=== PATIENT | female | born 2000 | race Caucasian/White ===

== ENCOUNTER 2022-12-03 21:51 | Emergency (ER) | payer MEDICAID, SELFPAY ==
[2022-12-03 21:52] VITALS: BP 149/98; PULSE 97; RESP 18; TEMP 36.9; O2SAT 97; BMI 40.8
--- NOTE | 2022-12-03 22:24 | US_ITS ---
STUDY: ABDOMINAL ULTRASOUND - RIGHT UPPER QUADRANT REASON FOR VISIT: Female, 22 years old RUQ pain TECHNIQUE: Ultrasound evaluation of the right upper quadrant was performed with real-time and static james-scale imaging. TECHNICAL QUALITY: Limited. Examination limited by bowel gas. COMPARISON: None. FINDINGS: Liver: The liver measures 17.0 cm. There is increased echogenicity consistent with fatty infiltration. The bile ducts are within normal limits. There is hepatic color flow. The direction of portal flow is hepatopetal. There is no demonstrated mass lesion. Gallbladder: Normal distended gallbladder. The gallbladder wall measures 2.0 mm. There is a positive sonographic Mendoza''s sign. There is no pericholecystic fluid. There are multiple echogenic structures within the gallbladder, consistent with multiple gallstones. Common Bile Duct (C.B.D.): The common bile duct measures 4.0 mm. Pancreas: Normal size of the body with partial obscuration of the head and tail of the pancreas. There is normal echogenicity of the visualized pancreas. There is no demonstrated pancreatic mass or cyst in the visualized portion. Right Kidney: Normal size of the right kidney. The right kidney measures 12.4 x 5.3 x 4.3 cm. Normal renal cortex. The right cortex measures 1.4 cm. There is no demonstrated renal mass or cyst. There is no right hydronephrosis. US/Gallbladder IMPRESSION: Possible mild diffuse fatty liver. Multiple gallstones with positive Mendoza sign, nonspecific in the absence of additional signs of acute cholecystitis. Remainder of the right upper quadrant ultrasound unremarkable. Electronically Signed: Fabiola Kaplan MD at 23:44 EDT ,
[2022-12-03] MEDS: Ondansetron 4 MG/2 ML Vial IV (22:37)
[2022-12-03] MEDS: 0.9% Normal Saline (1000mL) 1,000 ML 999 ML IV (22:37)
--- NOTE | 2022-12-03 22:45 | RAD_ITS ---
STUDY: X-RAY CHEST REASON FOR EXAM: Female, 22 years old. cough TECHNIQUE: PA and lateral views of the chest. COMPARISON: None. FINDINGS: The lungs are clear and expanded. There is no demonstrated pleural abnormality. Normal size heart. Normal mediastinum and tran. Normal visualized pulmonary arteries. Normal visualized aortic arch and descending thoracic aorta. Normal visualized thoracic spine. Normal visualized ribs, clavicles, and shoulders. There is no demonstrated abnormality of the visualized soft tissue structures of the upper abdomen. RAD/Chest PA and Lateral IMPRESSION: Normal x-ray examination of the chest. Electronically Signed: Fabiola Kaplan MD at 23:17 EDT ,
[2022-12-03 22:55] LABS: Bacteria 0 SEEN /hpf (None Seen); Mucous, Urine 0 SEEN /hpf (<or=2+); Red Blood Cells-Urine 0 SEEN /hpf (0-5)
[2022-12-03 22:57] LABS: Color, Urine Yellow (Yellow); Glucose, Dipstick 1000 mg/dl (Normal); Ketone-Dipstick 5 mg/dl (Negative); Leukocyte Esterase-Dipstick 25 /ul (Negative); Nitrite-Dipstick Negative (Negative); Occult Blood-Urine Negative /ul (Negative); Protein-Dipstick Negative (Negative); Specific Gravity, Urine 1.015 (1.002-1.030); Urine Bilirubin Dipstick Negative (Negative); Urine Clarity Clear (Clear); Urine Urobilinogen Normal (Normal)
[2022-12-03 22:59] LABS: Absolute Lymphocyte Count 4.38 X10^3/uL (0.83-4.51); Absolute Neutrophil Count 3.8 X10^3/uL (2.0-7.7); Basophil# 0.05 X10^3/uL; Basophil% 0.6 % (0-1); Eosinophil# 0.25 X10^3/uL; Eosinophils% 2.8 % (0-5); Hematocrit 42.6 % (37-47); Hemoglobin 13.5 g/dL (12.0-15.0); Lymphocyte # 4.38 X10^3/ul (0.83-4.51); Lymphocyte % 48.6 % (19-41); Mean Corp Hgb Conc 31.7 g/dL (32-36); Mean Corpuscular Hgb 25.6 pg (27.0-32.0); Mean Corpuscular Volume 80.8 fL (81-99); Mean Platelet Vol. 10.6 fl (6.2-12.0); Monocyte% 5.5 % (0-10); NRBC Flagged by Analyzer 0 % (0-5); Neutrophil # 3.82 X10^3/uL (2.7-7.7); Neutrophil % 42.3 % (47-70); Platelet Count 258 K/mm3 (150-450); RBC Distribution Width CV 14.5 % (11.6-14.6); RBC Distribution Width SD 41.9 fl (35.1-43.9); Red Blood Count 5.27 M/mm3 (4.2-5.4)
--- NOTE | 2022-12-03 23:04 | EX.ED.DYSGE1 ---
HPI History of Present Illness Chief Complaint: General Illness Informant: patient Narrative Narrative: Patient is a 22-year-old female with past medical history of diabetes. She states for the past 1 to 2 days she has had congestion drainage and cough. She denies any known sick contacts or fevers or chills. She also notes that she has had pain in her right upper abdomen and has had bouts of vomiting that occurred 10 to 15 minutes after eating. She went to an urgent care secondary to the symptoms and there was concern this could be gallbladder related and therefore patient was sent to the ER for evaluation. [facility] Medical History Asthma CPAP (continuous positive airway pressure) dependence Diabetes GERD (gastroesophageal reflux disease) Sleep apnea Home Medications albuterol sulfate 90 mcg/actuation aerosol inhaler 2 puff inhalation Q6H PRN wheezing 12/03/22 [History Last Taken Unknown] cephalexin 500 mg capsule mg 12/03/22 [History Last Taken Unknown] dulaglutide 3 mg/0.5 mL subcutaneous pen injector (Trulicity) 3 mg subcut .weekly 12/03/22 [History Last Taken Unknown] empagliflozin 10 mg tablet (Jardiance) 10 mg PO DAILY 12/03/22 [History Last Taken Unknown] glycopyrrolate 2 mg tablet 2 mg PO DAILY 12/03/22 [History Last Taken Unknown] benzonatate 200 mg capsule 200 mg PO TID PRN cough #30 caps 12/04/22 [Rx Last Taken Unknown] hydrocodone-acetaminophen 5-325mg 5mg-325mg 1 tab PO Q6H PRN PRN Pain 3 days #12 TABLETS 12/04/22 [Rx Last Taken Unknown] metoclopramide HCl 10 mg tablet (Reglan) 10 mg PO 4X/DAY PRN PRN nausea and vomiting #40 tabs 12/04/22 [Rx Last Taken Unknown] Allergy/AdvReac Type Severity Reaction Status Date / Time cetirizine [From [facility]] Allergy Severe Angioedema Verified 12/03/22 21:55 CONTROLL Allergy Intermediate Swelling Uncoded 12/03/22 21:55 Social History Smoking Status: Never smoker ROS ROS ED Constitutional Constitutional ED: Denies chills or fever(s) Eyes Eyes: Denies change in vision ENT ENT ED: Reports rhinorrhea and sore throat Cardiovascular Cardiovascular: Denies chest pain Respiratory/Chest Respiratory/Chest: Reports cough; Denies dyspnea Gastrointestinal Gastrointestinal: Reports abdominal pain, nausea and vomiting; Denies diarrhea Genitourinary Genitourinary ED: Denies dysuria or hematuria Musculoskeletal Musculoskeletal: Denies myalgias Integumentary Denies rash Neurologic Neurologic: Denies headache(s) Hematologic/Lymphatic Hematologic/Lymphatic: Denies easy bleeding or easy bruising EXAM Physical Exam Const Vital Signs: 12/03/22 21:52 12/03/22 22:09 Temperature 98.4 F Temperature Source Temporal Pulse Rate 97 Respiratory Rate 18 Respiratory Effort Normal Respiratory Pattern Normal Blood Pressure 149/98 H Blood Pressure Mean 115 Pulse Ox 97 Oxygen Delivery Method Room Air Positive well nourished, well developed and obese General Appearance ED: well developed Nutritional Appearance: obese HEENT HEENT Narrative: Bilateral TMs are retracted but show no secondary changes to suggest infection Nasal mucosa is hyperemic and boggy with enlarged inferior nasal turbinates There is cobblestoning the posterior pharynx consistent with sinus drainage without airway edema or compromise or secondary changes to suggest infection. Eyes PERRL and EOMs intact bilaterally General Eye ED: Negative for scleral icterus Neck supple Neck Narrative: No nuchal rigidity or meningeal signs noted Resp normal respiratory effort and clear to auscultation bilaterally Cardio regular rate and regular rhythm Rate: other Other Details: Radial and carotid pulses are equal and symmetric GI non-distended GI Narrative: Abdomen is obese soft and nondistended with normal active bowel sounds. There is pain with palpation in the mid epigastric and right upper quadrant region without voluntary guarding or rigidity. Negative Mendoza sign. No voluntary guarding or rigidity. No pulsatile mass. No obvious hernia palpated. Auscultation: normoactive bowel sounds Palpation: soft Extremity normal to inspection Extremity Narrative: No asymmetric edema no pitting edema negative Homans' sign bilaterally Neuro oriented x3 and CN's II-XII intact bilaterally Sensorium / Orientation: alert Psych mental status grossly normal Skin no rashes or lesions noted General Skin Exam: Negative for jaundice MDM MDM MDM Narrative Medical decision making narrative: Patient presented to the ER hypertensive but otherwise with stable vitals. She reported congestion drainage and cough and differential diagnosis for this is viral upper respiratory tract infection versus pneumonia. However she also reported she has an right upper quadrant abdominal pain and bouts of vomiting. This could be related to a viral URI but also pancreatitis or biliary colic is a possibility and therefore basic labs with a chest x-ray and a right upper quadrant ultrasound were obtained. Patient's chest x-ray revealed no obvious infiltrate. Labs show no leukocytosis or left shift her liver enzymes and lipase are normal. There are no laboratory studies to suggest DKA. Ultrasound did confirm cholelithiasis without signs of acute cholecystitis. On reevaluation the patient is resting comfortably and vitals remained stable. Therefore patient given symptomatic care for the viral upper respiratory tract infection and as she is not showing signs of acute cholecystitis I do not feel there is need for emergent general surgery consultation. Patient will be given their name for follow-up and be instructed on symptomatic care for both gallbladder dysfunction and URI. However at this time based on the fact that the pain has improved she has had no bouts of vomiting in the ER and vitals are stable and laboratory studies reveal no clinically significant findings she is safe for discharge. History & Record Review Discussion w/independent historian: Patient Lab Data Attestation: I reviewed the patient's lab results. Labs: Laboratory Results - last 24 hr 12/03/22 12/03/22 22:35 22:45 WBC 9.0 RBC 5.27 Hgb 13.5 Hct 42.6 MCV 80.8 L MCH 25.6 L MCHC 31.7 L RDW Std Deviation 41.9 RDW Coeff of Elmo 14.5 Plt Count 258 MPV 10.6 Immature Gran % (Auto) 0.200 Neut % (Auto) 42.3 L Lymph % (Auto) 48.6 H [place] % (Auto) 5.5 Eos % (Auto) 2.8 Baso % (Auto) 0.6 Absolute Neuts (auto) 3.8 Absolute Lymphs (auto) 4.38 Nucleated RBC % 0 Sodium 138 Potassium 3.4 L Chloride 108 H Carbon Dioxide 26.0 Anion Gap 4 L BUN 17 Creatinine 1.05 H Estim Creat Clear Calc 78.01 Est GFR (MDRD) Af Amer 83 Est GFR (MDRD) Non-Af 69 BUN/Creatinine Ratio 16.2 Glucose 95 Calcium 8.9 Total Bilirubin 0.60 Direct Bilirubin 0.16 AST 16 ALT 32 Alkaline Phosphatase 75 Total Protein 7.8 Albumin 3.9 Globulin 3.9 Lipase 28 Urine Color Yellow Urine Clarity Clear Urine pH 5.0 Ur Specific [place] 1.015 Urine Protein Negative Urine Glucose (UA) 1000 H Urine Ketones 5 H Urine Occult Blood Negative Urine Nitrite Negative Urine Bilirubin Negative Urine Urobilinogen Normal Ur Leukocyte Esterase 25 H Urine RBC 0 SEEN Urine WBC 0-5 SEEN Ur Squamous Epith Cells 5-10 SEEN Urine Bacteria 0 SEEN Urine Mucus 0 SEEN Urine Test Negative Radiography Diagnostic Testing: Clinical Impression(s) from Imaging Studies Gallbladder Ultrasound 12/03/22 22:24 IMPRESSION: Possible mild diffuse fatty liver. Multiple gallstones with positive Mendoza sign, nonspecific in the absence of additional signs of acute cholecystitis. Remainder of the right upper quadrant ultrasound unremarkable. Electronically Signed: Fabiola Kaplan MD at 23:44 EDT , Chest X-Ray 12/03/22 22:45 IMPRESSION: Normal x-ray examination of the chest. Electronically Signed: Fabiola Kaplan MD at 23:17 EDT , 2 view chest x-ray is interpreted by the emergency medicine physician reveals no acute infiltrate pneumothorax or pleural effusion Discharge Plan Triage Chief Complaint: General Illness ED Provider: Juan Grimm Dx/Rx/DC Orders Clinical Impression: Viral upper respiratory tract infection with cough, Cholelithiasis, Non-insulin dependent diabetes mellitus Instructions: Gallstones Dc, ED URI, Viral, No Abx (Adult) Prescriptions: New metoclopramide HCl [Reglan] 10 mg tablet 10 mg PO 4X/DAY PRN PRN (Reason: nausea and vomiting) Qty: 40 0RF benzonatate 200 mg capsule 200 mg PO TID PRN (Reason: cough) Qty: 30 0RF hydrocodone-acetaminophen 5-325 mg tablet 1 tab PO Q6H PRN PRN (Reason: Pain) 3 Days Qty: 12 0RF No Action glycopyrrolate 2 mg tablet 2 mg PO DAILY Patient Comments: TAKE 1 TABLET BY MOUTH ONCE DAILY Jardiance 10 mg tablet 10 mg PO DAILY Patient Comments: TAKE 1 TABLET BY MOUTH ONCE DAILY Trulicity 3 mg/0.5 mL pen injector 3 mg SUBCUT .weekly Patient Comments: takes on wednesdays cephalexin 500 mg capsule Patient Comments: TAKE 1 CAPSULE BY MOUTH TWICE DAILY FOR 7 DAYS albuterol sulfate 90 mcg/actuation HFA aerosol inhaler 2 puff INHALATION Q6H PRN (Reason: wheezing) Patient Comments: inhale 2 puffs by mouth and INTO THE LUNGS every 6 hours if needed for wheezing Primary Care Provider: NOT,DEFINED Referrals: Rafael Bear MD [Med Staff - Active Staff] - NOT,DEFINED [Primary Care Provider] - Activity Restrictions/Additional Instructions: Please eat smaller portions more frequently and a bland diet to help prevent any potential bouts of nausea and vomiting secondary to your ultrasound showing gallstones today. Follow-up with the general surgeon to discuss need for potential surgical removal of the gallbladder and return to the ER if you have intractable pain or develop a fever over 100.4. Disposition Disposition: Home, Self Care
[2022-12-03 23:10] LABS: AST(SGOT) 16 U/L (15-37); Alanine Aminotransfer ALT/SGPT 32 U/L (13-56); Albumin, Serum 3.9 g/dL (3.2-5.0); Alkaline Phosphatase 75 U/L (45-117); Anion Gap 4 (5-15); BUN 17 mg/dL (7-18); BUN/Creat Ratio 16.2 RATIO (10-20); Bilirubin, Direct 0.16 mg/dL (0.00-0.30); Calcium,Total 8.9 mg/dL (8.5-10.1); Chloride 108 mmol/L (98-107); Creatinine, Serum 1.05 mg/dL (0.55-1.02); EST Glomerular Filtration Rate 69 mL/min (>60); Est Glom Filt Rate - Afr Amer 83 mL/min (>60); Estimated Creatinine Clearance 78.01 ml/min; Globulin 3.9 g/dL (2.2-4.2); Glucose 95 mg/dL (74-106); Lipase 28 U/L (13-75); Potassium 3.4 mmol/L (3.5-5.1); Protein, Total 7.8 g/dL (6.4-8.2); Sodium Level 138 mmol/L (136-145)
[2022-12-03 23:15] LABS: Internal QC Validated? YES +Cl - CLEAR BKGD; Pregnancy, Urine Negative Negative; Squamous Epithelial Cells - UA 5-10 SEEN /hpf (5-10); White Blood Cells 0-5 SEEN /hpf (0-5)
== END 2022-12-04 00:17 | disposition home or self-care (01) ==
PROVIDERS: Emergency Provider Emergency Medicine; Visit Provider Emergency Medicine
DX: J06.9 Acute upper respiratory infection, unspecified (principal); E11.9 Type 2 diabetes mellitus without complications; K80.00 Calculus of gallbladder with acute cholecystitis without obstruction; J45.909 Unspecified asthma, uncomplicated; E66.9 Obesity, unspecified
CPT/HCPCS: 71046; 76705; 80048; 80076; 81001; 81025; 83690; 85025; 96361; 96374; 99282; J7030; A4216; J2405

== ENCOUNTER 2022-12-25 22:11 | Emergency (ER) | payer MEDICAID, SELFPAY ==
[2022-12-25 22:12] VITALS: BP 132/97; PULSE 110; RESP 18; TEMP 36.6; O2SAT 99; BMI 39.1
[2022-12-25 22:57] LABS: Absolute Lymphocyte Count 3.05 X10^3/uL (0.83-4.51); Basophil# 0.05 X10^3/uL; Basophil% 0.5 % (0-1); Hematocrit 42.6 % (37-47); Hemoglobin 13.4 g/dL (12.0-15.0); Lymphocyte # 3.05 X10^3/ul (0.83-4.51); Lymphocyte % 30.8 % (19-41); Mean Corp Hgb Conc 31.5 g/dL (32-36); Mean Corpuscular Hgb 24.8 pg (27.0-32.0); Mean Corpuscular Volume 78.7 fL (81-99); Mean Platelet Vol. 10.7 fl (6.2-12.0); Monocyte# 0.69 X10^3/uL; NRBC Flagged by Analyzer 0 % (0-5); Neutrophil # 5.97 X10^3/uL (2.7-7.7); Neutrophil % 60.4 % (47-70); POSITIVE COUNT YES; Platelet Count 217 K/mm3 (150-450); RBC Distribution Width SD 39.6 fl (35.1-43.9); Red Blood Count 5.41 M/mm3 (4.2-5.4); White Blood Count 9.9 K/mm3 (4.4-11.0)
[2022-12-25] MEDS: Ondansetron 4 MG/2 ML Vial IV (23:19)
[2022-12-25] MEDS: 0.9% Normal Saline (1000mL) 1,000 ML 999 ML IV (23:19)
[2022-12-25 23:22] LABS: AST(SGOT) 31 U/L (15-37); Alanine Aminotransfer ALT/SGPT 29 U/L (13-56); Albumin, Serum 3.4 g/dL (3.2-5.0); Alkaline Phosphatase 86 U/L (45-117); Anion Gap 7 (5-15); BUN 9 mg/dL (7-18); BUN/Creat Ratio 10.3 RATIO (10-20); Chloride 109 mmol/L (98-107); Creatinine, Serum 0.87 mg/dL (0.55-1.02); EST Glomerular Filtration Rate 85 mL/min (>60); Est Glom Filt Rate - Afr Amer 102 mL/min (>60); Estimated Creatinine Clearance 94.15 ml/min; Globulin 4.7 g/dL (2.2-4.2); Glucose 103 mg/dL (74-106); Lipase 18 U/L (13-75); Potassium 3.9 mmol/L (3.5-5.1); Protein, Total 8.1 g/dL (6.4-8.2); Sodium Level 140 mmol/L (136-145)
[2022-12-25 23:29] LABS: Differential Comment SCANNED; Differential Indicated SCAN CRITERIA MET
--- NOTE | 2022-12-25 23:59 | EDS_ITS ---
HPI History of Present Illness Chief Complaint: Abd Pain Informant: patient Narrative Narrative: Patient is a 22-year-old female with past medical history of cholelithiasis and diabetes. She was seen approximately 2 to 3 weeks ago secondary to abdominal pain and found to have gallstones. She was evaluated by general surgery and they felt no need for cholecystectomy at this time. Patient states that over the past week she has been having upper abdominal pain with bouts of nausea and vomiting. She states she has been trying to follow a gallbladder diet but because of her persistent nausea and vomiting is having difficulty doing so. She denies any fevers chills diarrhea dysuria concern for . However with persistent symptoms she comes in for evaluation. [facility] Medical History (Updated 12/26/22 @ 02:[address] Juan Grimm DO) Asthma Cholelithiasis CPAP (continuous positive airway pressure) dependence Diabetes GERD (gastroesophageal reflux disease) Sleep apnea Home Medications albuterol sulfate 90 mcg/actuation aerosol inhaler 2 puff inhalation Q6H PRN wheezing 12/03/22 [History Last Taken Unknown] dulaglutide 3 mg/0.5 mL subcutaneous pen injector (Trulicity) 3 mg subcut .weekly 12/03/22 [History Last Taken Unknown] empagliflozin 10 mg tablet (Jardiance) 10 mg PO DAILY 12/03/22 [History Last Taken Unknown] glycopyrrolate 2 mg tablet 2 mg PO DAILY 12/03/22 [History Last Taken Unknown] hydrocodone-acetaminophen 5-325mg 5mg-325mg 1 tab PO Q6H PRN PRN Pain 3 days #12 TABLETS 12/04/22 [Rx Last Taken Unknown] benzonatate 200 mg capsule 200 mg PO TID PRN cough 12/17/22 [History Last Taken Unknown] fluticasone propionate 50 mcg/actuation nasal spray,suspension 1 spray intranasal DAILY PRN 12/17/22 [History Last Taken Unknown] lansoprazole 15 mg capsule,delayed release 15 mg PO DAILY #30 caps 12/17/22 [Rx Last Taken Unknown] pantoprazole 40 mg tablet,delayed release 40 mg PO DAILY 12/17/22 [History Last Taken Unknown] sumatriptan succinate 50 mg tablet mg PO PRN 12/17/22 [History Last Taken Unknown] ondansetron 4 mg disintegrating tablet 4 mg PO TID PRN nausea and vomiting #21 tabs 12/26/22 [Rx Last Taken Unknown] Allergy/AdvReac Type Severity Reaction Status Date / Time cetirizine [From [facility]] Allergy Severe Angioedema Verified 12/25/22 22:12 prednisone Allergy Severe Swelling Verified 12/25/22 22:12 adhesive tape Allergy Intermediate Rash Verified 12/25/22 22:12 latex Allergy Intermediate Swelling Verified 12/25/22 22:12 CONTROLL Allergy Intermediate Swelling Uncoded 12/17/22 14:18 Family History (Updated 12/17/22 @ 14:15 by Caterina Betancourt) Mother Asthma Diabetes Hypertension High cholesterol Father Arthritis Surgical History No history of previous surgery Social History (Updated 12/17/22 @ 14:15 by Caterina Betancourt) Smoking Status: Never smoker alcohol intake: never substance use type: does not use ROS ROS ED Constitutional Constitutional ED: Denies chills or fever(s) ENT ENT ED: Denies sore throat Cardiovascular Cardiovascular: Denies chest pain Respiratory/Chest Respiratory/Chest: Denies cough or dyspnea Gastrointestinal Gastrointestinal: Reports abdominal pain, nausea and vomiting; Denies diarrhea Genitourinary Genitourinary ED: Denies dysuria or hematuria Musculoskeletal Musculoskeletal: Denies myalgias Integumentary Denies rash Neurologic Neurologic: Denies headache(s) Hematologic/Lymphatic Hematologic/Lymphatic: Denies easy bleeding or easy bruising EXAM Physical Exam Const Vital Signs: 12/25/22 22:12 12/26/22 00:12 Temperature 97.8 F Temperature Source Temporal Pulse Rate 110 H Respiratory Rate 18 16 Blood Pressure 132/97 H Blood Pressure Mean 108 Pulse Ox 99 Positive well nourished, well developed and obese General Appearance ED: well developed; Negative for pallor Nutritional Appearance: obese HEENT Reports moist mucous membranes HEENT Narrative: No signs of infection noted in the posterior pharynx Eyes PERRL and EOMs intact bilaterally General Eye ED: Negative for scleral icterus Neck supple Resp normal respiratory effort and clear to auscultation bilaterally Cardio regular rate and regular rhythm Rate: other Other Details: Radial and carotid pulses are equal and symmetric GI non-distended GI Narrative: Abdomen is obese soft and nondistended with normal active bowel sounds. There is pain on palpation in the midepigastric and right upper quadrant region. Negative Mendoza sign. No voluntary guarding or rigidity or pulsatile mass Auscultation: normoactive bowel sounds Palpation: soft Back/Spine no CVA tenderness Extremity normal to inspection Neuro oriented x3 and CN's II-XII intact bilaterally Sensorium / Orientation: alert Psych mental status grossly normal Skin no rashes or lesions noted General Skin Exam: Negative for jaundice or pallor MDM MDM MDM Narrative Medical decision making narrative: Patient presented to the ER complaining of persistent upper abdominal pain and bouts of nausea and vomiting. She has known gallstones from previous ultrasound. Differential diagnosis is for biliary colic versus gallstone pancreatitis versus viral gastroenteritis versus acute cholecystitis. Secondary to his basic blood work was obtained. As patient had a ultrasound recently did not feel need for repeat imaging studies. Labs revealed normal white blood cell count normal liver enzymes electrolytes and lipase going against acute cholecystitis gallstone pancreatitis or gallbladder obstruction. Patient was given IV fluids Toradol and Zofran and had no further bouts of vomiting and reported improvement of her pain. Therefore at this time with negative work-up and the fact patient's had improvement of symptoms with treatment and on reevaluation abdomen remains soft and nonsurgical she can be discharged and follow-up on an outpatient basis. History & Record Review Discussion w/independent historian: Patient Lab Data Labs: Laboratory Results - last 24 hr 12/25/22 22:50 WBC 9.9 RBC 5.41 H Hgb 13.4 Hct 42.6 MCV 78.7 L MCH 24.8 L MCHC 31.5 L RDW Std Deviation 39.6 RDW Coeff of Elmo 14.0 Plt Count 217 MPV 10.7 Immature Gran % (Auto) 0.300 Neut % (Auto) 60.4 Lymph % (Auto) 30.8 [facility] % (Auto) 7.0 Eos % (Auto) 1.0 Baso % (Auto) 0.5 Absolute Neuts (auto) 6.0 Absolute Lymphs (auto) 3.05 Nucleated RBC % 0 Differential Comment SCANNED Sodium 140 Potassium 3.9 Chloride 109 H Carbon Dioxide 24.0 Anion Gap 7 BUN 9 Creatinine 0.87 Estim Creat Clear Calc 94.15 Est GFR (MDRD) Af Amer 102 Est GFR (MDRD) Non-Af 85 BUN/Creatinine Ratio 10.3 Glucose 103 Calcium 9.0 Total Bilirubin 0.70 Direct Bilirubin 0.10 AST 31 ALT 29 Alkaline Phosphatase 86 Total Protein 8.1 Albumin 3.4 Globulin 4.7 H Lipase 18 Discharge Plan Triage Chief Complaint: Abd Pain ED Provider: Juan Grimm Dx/Rx/DC Orders Clinical Impression: Nausea & vomiting, Cholelithiasis, Diabetes Instructions: ED Gallstones with Biliary Colic, ED Vomiting (Adult) Prescriptions: New ondansetron 4 mg tablet,disintegrating 4 mg PO TID PRN (Reason: nausea and vomiting) Qty: 21 1RF No Action pantoprazole 40 mg tablet,delayed release (DR/EC) 40 mg PO DAILY benzonatate 200 mg capsule 200 mg PO TID PRN (Reason: cough) fluticasone propionate 50 mcg/actuation spray,suspension 1 spray intranasal DAILY PRN Rx Instructions: administer into each nostril sumatriptan succinate 50 mg tablet PO PRN Patient Comments: Take 1 tablet by mouth Once as needed for migraine. May repeat after 2 hours. lansoprazole 15 mg capsule,delayed release(DR/EC) 15 mg PO DAILY Qty: 30 1RF glycopyrrolate 2 mg tablet 2 mg PO DAILY Patient Comments: TAKE 1 TABLET BY MOUTH ONCE DAILY Jardiance 10 mg tablet 10 mg PO DAILY Patient Comments: TAKE 1 TABLET BY MOUTH ONCE DAILY Trulicity 3 mg/0.5 mL pen injector 3 mg SUBCUT .weekly Patient Comments: takes on wednesdays albuterol sulfate 90 mcg/actuation HFA aerosol inhaler 2 puff INHALATION Q6H PRN (Reason: wheezing) Patient Comments: inhale 2 puffs by mouth and INTO THE LUNGS every 6 hours if needed for wheezing hydrocodone-acetaminophen 5-325 mg tablet 1 tab PO Q6H PRN PRN (Reason: Pain) 3 Days Qty: 12 0RF Primary Care Provider: Care Physician,No Primary Referrals: Rafael Bear MD [Med Staff - Active Staff] - Care Physician,No Primary [Primary Care Provider] - Activity Restrictions/Additional Instructions: Please contact your general surgeon to inform them of your increased symptoms. Take the Zofran as directed for nausea and vomiting control keep yourself well- hydrated and return to the ER should you have any further concerns Disposition Disposition: Home, Self Care Discharge Date/Time: 12/26/22 01:36
[2022-12-26 00:12] VITALS: RESP 16
== END 2022-12-26 01:36 | disposition home or self-care (01) ==
PROVIDERS: Emergency Provider Emergency Medicine; Visit Provider Emergency Medicine
DX: K80.20 Calculus of gallbladder without cholecystitis without obstruction (principal); E11.9 Type 2 diabetes mellitus without complications; J45.909 Unspecified asthma, uncomplicated; Z79.85 Long-term (current) use of injectable non-insulin antidiabetic drugs; E66.9 Obesity, unspecified
CPT/HCPCS: 80048; 80076; 83690; 85025; 96361; 96374; 99283; J7030; A4216; J2405

== ENCOUNTER → 2023-03-29 | Outpatient (CLI) | payer MEDICAID, SELFPAY ==
--- NOTE | 2023-03-29 11:51 | NM_ITS ---
EXAM: NM HEPATOBILIARY SCAN CLINICAL INDICATION: BILIARY COLIC, PATIENT HAS GALLSTONES BILIARY COLIC, PATIENT HAS GALLSTONES TECHNIQUE: Technetium 99m choletec was intravenously administered and static images were obtained. CCK was injected after 60 minutes and gallbladder emptying was evaluated. COMPARISON: Gallbladder ultrasound 12/03/2022. FINDINGS: LIVER: There is normal clearance of the agent from the liver. There is no abnormal hyperemia along the gallbladder fossa. BILE DUCTS: Unremarkable. Normal radiopharmaceutical activity. GALLBLADDER: Activity is seen in the gallbladder on 45 minute image. Gallbladder ejection fraction at 16 minutes is 18% (normal is greater than 35%). This finding is consistent with gallbladder dyskinesia/hypokinesia. STOMACH AND BOWEL: Activity is seen in small bowel loops on 30 minute image. NM/Hepatobilliary Img w/Pharm Int IMPRESSION: 1. No evidence for acute cholecystitis. No evidence for biliary obstruction. 2. Decreased gallbladder ejection fraction, measuring 18%. Finding is consistent with gallbladder dyskinesia/hypokinesia. Electronically Signed: Justin Paez MD at 6:15 EST ,
== END | disposition home or self-care (01) ==
LOC: NM 11:45
PROVIDERS: Visit Provider Surgery
DX: K80.50 Calculus of bile duct without cholangitis or cholecystitis without obstruction (principal)
CPT/HCPCS: 78227; A9537; J2805

== ENCOUNTER 2023-05-16 18:53 | Emergency (ER) | payer MEDICAID, SELFPAY ==
[2023-05-16 18:55] VITALS: BP 121/85; PULSE 93; RESP 18; TEMP 36.4; O2SAT 98; BMI 39.4
--- NOTE | 2023-05-16 19:28 | EDS_ITS ---
<Statement entered by Shelbi Cam MD - 05/16/23 20:40> I have personally performed a face to face assessment of the patient and have reviewed the ATUL Note. Patient presents secondary to right ear pain. She has had right ear pain for the last several days and went to urgent care yesterday. They told her she had a cerumen impaction. She was told to get Debrox drops, but she states her symptoms or not improved. Patient sitting upright in bed no acute distress. I examined the patient after her ears have been irrigated. TMs are clear bilaterally with no evidence of infection. Nursing staff does report large amount of cerumen cleansed from the right ear canal. Patient does not need antibiotics at this time. She is discharged home and referred to local PCP to establish care. HPI History of Present Illness Chief Complaint: Ear Problem Narrative Narrative: Patient presenting today due to right ear pain that she has had over the past few days. She reports that she went to urgent care yesterday and they told her that she had a cerumen impaction and advised her to buy an [id number] earwax removal kit. She tried to use this with minimal relief. She reports muffled hearing and pain to her right ear. [facility] Medical History Asthma Cholelithiasis CPAP (continuous positive airway pressure) dependence Diabetes GERD (gastroesophageal reflux disease) Sleep apnea Home Medications albuterol sulfate 90 mcg/actuation aerosol inhaler 2 puff inhalation Q6H PRN wheezing 12/03/22 [History Last Taken Unknown] dulaglutide 3 mg/0.5 mL subcutaneous pen injector (Trulicity) 3 mg subcut .weekly 12/03/22 [History Last Taken Unknown] empagliflozin 10 mg tablet (Jardiance) 10 mg PO DAILY 12/03/22 [History Last Taken Unknown] glycopyrrolate 2 mg tablet 2 mg PO DAILY 12/03/22 [History Last Taken Unknown] hydrocodone-acetaminophen 5-325mg 5mg-325mg 1 tab PO Q6H PRN PRN Pain 3 days #12 TABLETS 12/04/22 [Rx Last Taken Unknown] benzonatate 200 mg capsule 200 mg PO TID PRN cough 12/17/22 [History Last Taken Unknown] fluticasone propionate 50 mcg/actuation nasal spray,suspension 1 spray intranasal DAILY PRN 12/17/22 [History Last Taken Unknown] sumatriptan succinate 50 mg tablet mg PO PRN 12/17/22 [History Last Taken Unknown] ondansetron 4 mg disintegrating tablet 4 mg PO TID PRN nausea and vomiting #21 tabs 12/26/22 [Rx Last Taken Unknown] omeprazole 20 mg capsule,delayed release 20 mg PO DAILY #30 caps 04/06/23 [Rx Last Taken Unknown] Allergy/AdvReac Type Severity Reaction Status Date / Time cetirizine [From [facility]] Allergy Severe Angioedema Verified 05/16/23 18:55 prednisone Allergy Severe Swelling Verified 05/16/23 18:55 adhesive tape Allergy Intermediate Rash Verified 05/16/23 18:55 latex Allergy Intermediate Swelling Verified 05/16/23 18:55 CONTROLL Allergy Intermediate Swelling Uncoded 04/20/23 13:31 Family History Mother Asthma Diabetes Hypertension High cholesterol Father Arthritis Surgical History No history of previous surgery Social History Smoking Status: Never smoker alcohol intake: never substance use type: does not use ROS ROS ED Constitutional Constitutional ED: Denies chills or fever(s) ENT ENT ED: Reports ear pain right Cardiovascular Cardiovascular: Denies chest pain Respiratory/Chest Respiratory/Chest: Denies cough or dyspnea Gastrointestinal Gastrointestinal: Denies abdominal pain, nausea or vomiting Musculoskeletal Musculoskeletal: Denies arthralgias or myalgias Integumentary Denies rash Neurologic Neurologic: Denies weakness EXAM Physical Exam Const Vital Signs: 05/16/23 18:55 Temperature 97.5 F L Temperature Source Temporal Pulse Rate 93 Respiratory Rate 18 Blood Pressure 121/85 H Blood Pressure Mean 97 Pulse Ox 98 Oxygen Delivery Method Room Air Positive well nourished, well developed and no apparent distress General Appearance ED: well developed HEENT Reports normocephalic and head/scalp atraumatic HEENT Narrative: Left TM clear, right cerumen impaction Mouth ED: Yes moist mucous membranes normal Eyes PERRL and EOMs intact bilaterally Neck full ROM and supple Chest Wall inspection of chest normal Resp normal respiratory effort and clear to auscultation bilaterally Cardio regular rate and regular rhythm GI soft to palpation, non-tender, non-distended and no masses Back/Spine normal ROM and normal to inspection Extremity normal to inspection and full ROM Neuro oriented x3, CN's II-XII intact bilaterally, moves all extremities, no focal motor deficits and no sensory deficits noted Sensorium / Orientation: awake and alert Psych mental status grossly normal and thought process normal Skin no rashes or lesions noted and no wounds MDM MDM MDM Narrative Medical decision making narrative: Patient presenting with a right cerumen impaction. Debrox drops will be placed and this will be irrigated. Large amount of wax was removed, TM is now visualized and EAC is clear. She reports improvement of her symptoms. She will be discharged home in stable condition. Discharge Plan Triage Chief Complaint: Ear Problem ED Midlevel Provider: Lulu Moscoso ED Provider: Shelbi Cam Dx/Rx/DC Orders Clinical Impression: Cerumen impaction Instructions: ED Cerumen Impaction Treated Prescriptions: No Action benzonatate 200 mg capsule 200 mg PO TID PRN (Reason: cough) fluticasone propionate 50 mcg/actuation spray,suspension 1 spray intranasal DAILY PRN Rx Instructions: administer into each nostril sumatriptan succinate 50 mg tablet PO PRN Patient Comments: Take 1 tablet by mouth Once as needed for migraine. May repeat after 2 hours. glycopyrrolate 2 mg tablet 2 mg PO DAILY Patient Comments: TAKE 1 TABLET BY MOUTH ONCE DAILY Jardiance 10 mg tablet 10 mg PO DAILY Patient Comments: TAKE 1 TABLET BY MOUTH ONCE DAILY Trulicity 3 mg/0.5 mL pen injector 3 mg SUBCUT .weekly Patient Comments: takes on wednesdays albuterol sulfate 90 mcg/actuation HFA aerosol inhaler 2 puff INHALATION Q6H PRN (Reason: wheezing) Patient Comments: inhale 2 puffs by mouth and INTO THE LUNGS every 6 hours if needed for wheezing hydrocodone-acetaminophen 5-325 mg tablet 1 tab PO Q6H PRN PRN (Reason: Pain) 3 Days Qty: 12 0RF ondansetron 4 mg tablet,disintegrating 4 mg PO TID PRN (Reason: nausea and vomiting) Qty: 21 1RF omeprazole 20 mg capsule,delayed release(DR/EC) 20 mg PO DAILY Qty: 30 1RF Primary Care Provider: Care Physician,No Primary Referrals: Kai Duffy MD [Med Staff - Active Staff] - As Needed Care Physician,No Primary [Primary Care Provider] - Disposition Disposition: Home, Self Care Discharge Date/Time: 05/16/23 20:09
[2023-05-16] MEDS: Carbamide Peroxide 15 ML Bottle 5 DRP OTIC (19:35)
--- OUTSIDE RECORDS SUMMARY | 2023-05-16 20:06 | XMS RPT_ITS | CCD ---
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 [facility] [place] 01-29-2020 11:48-0500 Pulse (Heart Rate) 85 /min [facility] [place] 01-29-2020 11:48-0500 Pulse Oximetry 97 % [facility] [place] 01-29-2020 11:48-0500 Respiratory Rate 16 /min Jarrett [facility] [place] 01-29-2020 11:46-0500 BMI (Body Mass Index) 38.74 kg/m2 [facility] [place] 01-29-2020 11:46-0500 Body weight 108.86 kg [facility]rett [facility] [place] 01-29-2020 11:46-0500 Height 167.6 cm [facility] [place] 12-27-2019 22:29-0400 BP Diastolic 91 mm[Hg] Jose G Emanuel [facility] [place] 12-27-2019 22:29-0400 BP Systolic 115 mm[Hg] Jose G Emanuel [facility] [place] 12-27-2019 22:29-0400 Pulse (Heart Rate) 96 /min [facility] [place] 12-27-2019 22:29-0400 Pulse Oximetry 100 % Jose G Emanuel [facility] [place] 12-27-2019 22:29-0400 Respiratory Rate 16 /min Jose G Emanuel [facility] [place] 12-27-2019 21:48-0400 Body Temperature 98.1 [degF] Jose G Emanuel [facility] [place] 11-27-2019 03:51-0400 BP Diastolic 81 mm[Hg] [facility] [place] , [place] 11-27-2019 03:51-0400 BP Systolic 121 mm[Hg] [facility] [place] 11-27-2019 03:51-0400 Pulse (Heart Rate) 95 /min [facility] [place] 11-27-2019 03:51-0400 Pulse Oximetry 100 % [facility] [place] 11-27-2019 03:51-0400 Respiratory Rate 16 /min [facility] [place] 11-27-2019 02:29-0400 Body Temperature 98.71 [degF] [facility] [place] 09-22-2019 10:54-0400 BP Diastolic 83 mm[Hg] [facility] [place] 09-22-2019 10:54-0400 BP Systolic 119 mm[Hg] [facility] [place] 09-22-2019 10:54-0400 Pulse (Heart Rate) 82 /min [facility] [place] 09-22-2019 10:54-0400 Pulse Oximetry 100 % [facility] [place] 09-22-2019 10:54-0400 Respiratory Rate 16 /min [facility] [place] 09-22-2019 00:13-0400 BMI (Body Mass Index) 39.06 kg/m2 [facility] [place] 09-22-2019 00:13-0400 Body Temperature 97.7 [degF] Everette Garcia [facility] [place], [place] 09-22-2019 00:13-0400 Body weight 109.77 kg Everette Garcia [facility], [place] 09-22-2019 00:13-0400 Height 167.6 cm Everette Garcia [facility] 09-18-2019 06:45-0400 BP Diastolic 66 mm[Hg] Renny Garcia [facility] , [place] 09-18-2019 06:45-0400 BP Systolic 112 mm[Hg] Renny Garcia [facility] , [place] 09-18-2019 06:45-0400 Pulse (Heart Rate) 74 /min Renny Garcia [facility], [place] 09-18-2019 06:45-0400 Pulse Oximetry 98 % Renny Garcia [facility] , [place] 09-18-2019 06:45-0400 Respiratory Rate 16 /min Renny Garcia [facility] 09-17-2019 22:47-0400 BMI (Body Mass Index) 37.28 kg/m2 Renny Garcia [facility], [place] 09-17-2019 22:47-0400 Body Temperature 98.29 [degF] Renny Gracia [facility], [place] 09-17-2019 22:47-0400 Body weight 107.96 kg Renny Garcia [facility] , [place] 09-17-2019 22:47-0400 Height 170.2 cm [facility] , [place] 03-20-2019 16:50-0500 Body height 167.6 cm [facility] Work Phone: 03-20-2019 16:50-0500 Body mass index (BMI) [Ratio] 37.61 kg/m2 [facility] Work Phone: 03-20-2019 16:50-0500 Body temperature 98.4 [degF] [facility] Work Phone: 03-20-2019 16:50-0500 Body weight 105.69 kg [facility] Work Phone: 03-20-2019 16:50-0500 Diastolic blood pressure 96 mm[Hg] [employer] Work Phone: 03-20-2019 16:50-0500 Heart rate 90 /min [employer] Work Phone: 03-20-2019 16:50-0500 Respiratory rate 16 /min [employer] Work Phone: 03-20-2019 16:50-0500 SaO2% (BldA) [Mass fraction] 100 % [facility] Work Phone: 03-20-2019 16:50-0500 Systolic blood pressure 136 mm[Hg] [facility] Work Phone: 12-18-2018 12:23-0400 BMI (Body Mass Index) 38.74 kg/m2 [facility] [place] [place] 12-18-2018 12:23-0400 Body Temperature 98.01 [degF] [facility] [place] 12-18-2018 12:23-0400 Body weight 108.86 kg Jarrett [place] 12-18-2018 12:23-0400 BP Diastolic 58 mm[Hg] Jarrett [place] 12-18-2018 12:23-0400 BP Systolic 115 mm[Hg] Jarrett [place] 12-18-2018 12:23-0400 Height 167.6 cm Jarrett [place] 12-18-2018 12:23-0400 Pulse (Heart Rate) 84 /min Jarrett [place] 12-18-2018 12:23-0400 Pulse Oximetry 99 % Jarrett [place] 12-18-2018 12:23-0400 Respiratory Rate 20 /min [facility] [place] Encounters Encounter Date Encounter Type Care Provider Facility Start: 05-14-2023 End: 05-14-2023 ambulatory FIFI ALBERTS Facility:[facility] Start: 05-12-2023 Refill Dequatriluiz Trevino MA [facility] Procedures Date Procedure Procedure Detail Performing Clinician Start: 04-26-2023 Comprehensive metabolic panel Fifi Alberts MD Work Phone: Start: 04-26-2023 Thyrotropin [Units/volume] in Serum or Plasma Fifi Alberts MD Work Phone: Start: 02-26-2023 Hemoglobin glycosylated a1c Fifi Alberts MD Work Phone: Start: 12-23-2022 STREP A MOLECULAR (POC) Tia Harding GLASS EDGER.TUBE SIZER OPERATOR Work Phone: Start: 11-18-2022 Hemoglobin glycosylated a1c Fifi Alberts MD Work Phone: Start: 09-10-2022 Hemoglobin glycosylated a1c Fifi Alberts MD Work Phone: Start: 08-29-2022 Urinalysis complete panel - Urine Kevin Aleman MD Work Phone: Start: 08-29-2022 Urine test visual color cmprsn meths Kevin Aleman MD Work Phone: Start: 08-29-2022 Urnls dip stick/tablet reagent auto microscopy Kevin Aleman MD Work Phone: Start: 06-09-2022 Hemoglobin glycosylated a1c Fifi Alberts MD Work Phone: Start: 11-08-2021 Lipid 1996 panel - Serum or Plasma Fifi Alberts MD Work Phone: Start: 05-23-2021 Basic metabolic panel calcium total Jailene Chong DO Work Phone: Start: 05-23-2021 Lipid panel Jailene Duarte O Work Phone: Start: 04-18-2021 Radex spine lumbosacral 2/3 views Kristin Cruz GLASS EDGER - TUBE SIZER OPERATOR Work Phone: Start: 11-15-2020 Iaadiadoo trichomonas vaginalis Mariely Mar MD Work Phone: Start: 10-03-2020 Iaadiadoo trichomonas vaginalis Fay Gomez GLASS EDGER.TUBE SIZER OPERATOR Work Phone: Start: 09-05-2020 Brncdilat rspse spmtry pre&post-brncdilat admn Jailene Chong DO Work Phone: Start: 07-30-2020 Radiologic exam chest 2 views Jailene Chong DO Work Phone: Start: 04-23-2020 Microscopic observation [Identifier] in Cervix by Cyto stain Jailene Chong DO Work Phone: Start: 01-29-2020 Radiologic exam chest single view Jarrett Vallejo Work Phone: Start: 09-22-2019 Mri spinal canal cervical w/o contrast matrl Rafa Gonzalez Work Phone: Start: 09-22-2019 Basic metabolic panel calcium total Abrahamalpesh Eli Work Phone: Start: 09-22-2019 Urine test visual color cmprsn meths Rafa Gonzalez Work Phone: Start: 09-22-2019 Urnls dip stick/tablet rgnt auto w/o microscopy Rafa Gonzalez Work Phone: Start: 09-22-2019 Blood count complete auto&auto difrntl wbc Rafa Gonzalez Work Phone: Start: 09-18-2019 Ct cervical spine w/o contrast material Rafa Gonzalez Work Phone: Start: 09-18-2019 Ct head/brain w/o contrast material Rafa Gonzalez Work Phone: Start: 09-17-2019 Radex forearm 2 views Rafa Gonzalez Work Phone: Start: 09-17-2019 Radex hand minimum 3 views Rafa Gonzalez Work Phone: Start: 09-17-2019 Radex humerus minimum 2 views Rafa Gonzalez Work Phone: Start: 09-17-2019 Radiologic exam chest single view Rafa Gonzalez Work Phone: Start: 12-18-2018 Radex wrist complete minimum 3 views Jarrett Carmona Work Phone: Laboratory test resu lt abnormal Abnormal laboratory test Fay Gomez GLASS EDGER.TUBE SIZER OPERATOR Work Phone: Plan of Treatment Date Care Activity Detail Author Start: 2059 RSV Immunization aged 60 or older (1 - 1-dose 60+ series) RSV Immunization aged 60 or older (1 - 1-dose 60+ series) [facility] Start: 2049 Shingles (RZV) Vaccine (1 of 2) Shingles (RZV) Vaccine (1 of 2) [facility] Start: 2049 Zoster Vaccines (1 of 2) Zoster Vaccines (1 of 2) [facility] Start: 04-09-2024 Glaucoma screening Diabetes: Retinopathy Screening [facility] Start: 02-27-2024 Hemoglobin A1c measurement Diabetes: Hemoglobin A1C [facility] Start: 01-08-2024 Chlamydia Screening (18-24) Chlamydia Screening (18-24) [facility] Start: 01-08-2024 GC (Gonorrhea) Screening (18-24) GC (Gonorrhea) Screening (18-24) [facility] Start: 11-19-2023 Hemoglobin A1c measurement Diabetes: Hemoglobin A1C [facility] Start: 09-11-2023 Hemoglobin A1c measurement Diabetes: Hemoglobin A1C [facility] Start: 07-19-2023 End: 07-19-2023 Patient encounter procedure 07/19/2023 8:40 AM EDT Office Visit [facility] [address] [facility] [address] [place] [phone] Robb Orozco MD [address] [facility] [address] [place], [place] [id number] [facility] Start: 06-07-2023 End: 06-07-2023 Patient encounter procedure 06/07/2023 3:20 PM EDT Office Visit [facility] [facility] [place] [phone] Fifi Alberts MD [facility] [place] [address] [facility] Start: 04-26-2023 End: 04-26-2023 Patient encounter procedure 04/26/2023 3:00 PM EST Office Visit [facility] [address] [place] [phone] Fifi lAberts MD [address] [facility] [facility] [place] [id number] [facility] Start: 04-23-2023 PAP TESTING PAP TESTING [facility] Start: 04-23-2023 Screening for malignant neoplasm of cervix Pap smear [facility] Start: 03-13-2023 Depresssion Monitoring Depresssion Monitoring [facility] Start: 02-26-2023 End: 02-26-2023 Patient encounter procedure 02/26/2023 1:40 PM EST Office Visit [facility] [address] [place] [phone] Fifi Alberts MD [address] [place], [place] [phone] [facility] Start: 12-11-2022 End: 12-11-2022 Patient encounter procedure 12/11/2022 8:00 AM EDT Office Visit [facility] [address] [place] [phone] Fifi Alberts MD [address] [place], [place] [phone] [facility] Start: 12-09-2022 Depresssion Monitoring Depresssion Monitoring [facility] Start: 11-08-2022 Lipid panel Lipid Panel [facility] Start: 11-08-2022 Urine screening for protein Diabetes: Urine Protein Screening [facility] Start: 11-06-2022 Influenza vaccination [facility] Start: 10-15-2022 End: 10-16-2023 Bacteria identified in Urine by Culture URINE CULTURE Microbiology Routine Urinary tract infection without hematuria, site unspecified Expected: 10/15/2022, Expires: 10/16/2023 [facility] Work Phone: Immunizations Immunization Date Immunization Notes Care Provider Fa angela 11-06-2021 Pneumococcal Conjuga te PCV20, Pf (Prevnar 20) Fifi Alberts MD Work Phone: [facility] Payers Date Payer Category Payer Medicaid [id number] 2020 Medicaid [id number] 2020 Medicaid [id number] 2020 Private Health Insurance xxx [id number] 2020 Private Health Insurance [id number] 2014 Private Health Insurance [id number] 1999 Unknown [id number] Unknown [facility] Social History Date Type Detail Facility [facility] ever smoked [employer] Start: 2000 Sex Assigned At Not on file [facility] Start: 04-23-2021 End: 10-30-2022 Exposure to SARS-CoV-2 (event) Not sure [facility] Start: 09-22-2019 End: 01-03-2022 Tobacco smoking status NHIS Never smoker [facility] Start: 09-22-2019 End: 01-03-2022 Tobacco use and exposure Never used [employer] [place] Start: 11-27-2019 End: 04-26-2023 Alcohol intake Lifetime non-drinker (finding) [facility] Start: 11-27-2019 End: 01-18-2022 History SDOH Alcohol Frequency 1 [place], [place] Start: 2000 Sex Assigned At Female [employer] Work Phone: Exposure to SARS-CoV -2 (event) Yes [employer] Work Phone: Start: 08-29-2022 End: 09-10-2022 History of Social function [facility] [employer] Start: 08-29-2022 End: 09-10-2022 Alcohol Use Disorder Identification Test - Consumption [AUDIT-C] [facility] How often to you hav e a drink containing alcohol? Never [facility] How many standard dr inks containing alcohol do you have on a typical day? Patient does not drink [facility] Start: 10-15-2020 Gender identity Identifies as female gender (finding) [facility] Start: 10-15-2020 Sexual orientation Heterosexual (finding) [facility] Tobacco smoking stat [facility] Tobacco smoking consumption unknown [facility] Medical Equipment Procedure Code Equipment Code Equipment Origin al Text Equipment Identifier Dates type II Dm, E11. 9, test once per day [id number] Start: 05-01-2020 Test once a day. Type II DM, E11.9 [id number] Start: 05-01-2020 type II Dm, E11. 9, test once per day [id number] Start: 12-17-2020 Test once a day. Type II DM, E11.9 [id number] Start: 12-17-2020 TEST GLUCOSE ONC E DAILY [id number] Start: 10-30-2021 1 each by Other route daily. [id number] Start: 02-13-2022 End: 02-26-2023 Clinical Notes 03-20-2019 to 05-14-2023 Telephone Encounter - Nikole Magaña RN - 05/14/2023 1:08 PM ESTTelephone Encounter - Nikole Magaña RN - 05/14/2023 1:08 PM Cassie Alberts MD - 04/26/2023 3:00 PM ESTAttachments Note Date & Type Note Facility 05-14-2023 Note HNO ID: [id number] Author: DAVID POWERS APRN.TUBE SIZER OPERATOR Service: ? Author Type: Nurse Practitioner Type: Progress Notes Filed: 05/14/2023 19:31 Note Text: Subjective HPI Nontoxic-appearing female presents urgent care chief complaint bilateral ear pain. Duration of symptoms 1 day. Associated symptoms bilateral ear pain. States feels like ears are clogged at times. Did try to clean ears this seemed to worsen complaint. No otorrhea or loss of hearing. Hearing is slightly muffled. No ear trauma. Denies any fever body aches chills productive cough chest pain shortness of breath pleuritic pain hemoptysis nausea vomiting abdominal pain change in bowel or bladder habits. Past medical history prescription medication use and allergies reviewed. BP 104/73 Pulse 81 Temp 36.8 ?C (98.3 ?F) Resp 18 Wt 110 kg (242 lb 8.1 oz) LMP 05/02/2023 (Approximate) SpO2 98% BMI 39.14 kg/m? .Patient presents with: Ear Pain: Bilat ear pain, fells like water in ears x 1 day PAST MEDICAL HISTORY Diagnosis Date Asthma Depression Diabetes mellitus (HCC) Generalized anxiety disorder History reviewed. No pertinent surgical history. ALLERGIES Norethindrone Ac-Eth Estradiol, Norgestimate-Ethinyl Estradiol, Prednisone, and Zyrtec [Cetirizine] MEDICATIONS sodium chloride (SALINE MIST) 0.65 % nasal spray Use 2 Sprays in the nose two times a day as needed. azelastine 0.1% nasal spray Use 1 [place] in each nostril two times a day. fluticasone (FLONASE) 50 mcg/actuation nasal spray Use 2 Sprays in each nostril two times a day. Rinse mouth after use. LIDOCAINE VISCOUS 2 % solution Take 15 mL by mouth three times a day as needed. JARDIANCE 10 mg tablet Take 1 tablet by mouth every afternoon. SUMAtriptan (IMITREX) 50 mg tablet TAKE 1 TABLET BY MOUTH NEEDED FOR MIGRAINE HEADACHE; MAY REPEAT AFTER 2 HOURS FREESTYLE KIERRA 2 SENSOR kit mupirocin (BACTROBAN) 2 % ointment Use 2 g in the nose. pantoprazole DR (PROTONIX) 40 mg tablet Take 40 mg by mouth twice daily. glycopyrrolate (ROBINUL) 1 mg tablet Take 2 mg by mouth twice daily. TRULICITY 1.5 mg/0.5 mL pen injector Inject 3 mg subcutaneously one time a week. metformin HCl (METFORMIN ORAL) Take 500 mg by mouth twice daily. FAMILY HISTORY Problem Relation Age of Onset Diabetes Mother Cervical Cancer Maternal Grandmother did not require hysterectomy Lung Cancer Maternal Grandmother Multiple Sclerosis Maternal Grandmother Breast Cancer Maternal great-grandmother diagnosed >50y Social History Tobacco Use Smoking status: Never Smokeless tobacco: Never Substance Use Topics Alcohol use: Never Drug use: Never Review of Systems Constitutional: Negative for chills, fever and malaise/fatigue. HENT: Positive for ear pain. Negative for congestion, ear discharge, sinus pain and sore throat. Eyes: Negative for blurred vision, pain, discharge and redness. Respiratory: Negative for cough, hemoptysis, sputum production, shortness of breath, wheezing and stridor. Cardiovascular: Negative for chest pain. Gastrointestinal: Negative for abdominal pain, diarrhea, nausea and vomiting. Musculoskeletal: Negative for myalgias. Skin: Negative for itching and rash. Neurological: Negative for dizziness and headaches. Objective Physical Exam Constitutional: General: She is not in acute distress. Appearance: She is not diaphoretic. HENT: Head: Normocephalic. Jaw: No trismus, tenderness, swelling or pain on movement. Right Ear: Tympanic membrane, ear canal and external ear normal. Left Ear: Tympanic membrane, ear canal and external ear normal. Nose: Nose normal. Mouth/Throat: Mouth: Mucous membranes are moist. Pharynx: Oropharynx is clear. Uvula midline. No pharyngeal swelling, oropharyngeal exudate, posterior oropharyngeal erythema or uvula swelling. Eyes: Conjunctiva/sclera: Conjunctivae normal. Pupils: Pupils are equal, round, and reactive to light. Cardiovascular: Rate and Rhythm: Normal rate and regular rhythm. Heart sounds: Normal heart sounds. Pulmonary: Effort: Pulmonary effort is normal. No tachypnea, accessory muscle usage or respiratory distress. Breath sounds: Normal breath sounds. No stridor. No wheezing, rhonchi or rales. Abdominal: General: There is no distension. Palpations: Abdomen is soft. Tenderness: There is no abdominal tenderness. There is no guarding or rebound. Musculoskeletal: Cervical back: Normal range of motion and neck supple. No edema, erythema, rigidity or tenderness. No pain with movement. Normal range of motion. Lymphadenopathy: Cervical: No cervical adenopathy. Skin: General: Skin is warm and dry. Neurological: Mental Status: She is alert and oriented to person, place, and time. ASSESSMENT/PLAN: 1. Acute otalgia, bilateral - ICD9: 388.70, ICD10: H92.03 Diagnosed otalgia bilaterally. No evidence of bacterial infection noted on today's exam. Patient was educat (more content not included)... [facility] 05-14-2023 Telephone encounter Note Images from the original note were not included. This nurse contacted patient to see what she is taking medication for and this was the response: Oziel Roper You5 minutes ago (1:02 PM) It's for my hygiene because it's really bad Thank you, Feel free to reach out if you need anything. Sincerely, Nikole Magaña Ambulatory vehicle sales professional [phone] [place] [id number] [place] [address] [facility] 05-14-2023 Miscellaneous Notes Images from the original note were not included. This nurse contacted patient to see what she is taking medication for and this was the response: Oziel Roper You5 minutes ago (1:02 PM) It's for my hygiene because it's really bad Thank you, Feel free to reach out if you need anything. Sincerely, Nikole Magaña Ambulatory vehicle sales professional [phone] [id number] [place] [address] Does she know why she is taking this medication? Called patient and he uses [facility]. [facility] faxed a refill request for glycopyrrolate 2 mg tablet. documented in this encounter [facility] 05-14-2023 Telephone encounter Note Does she know why she is taking this medication? [facility] 05-12-2023 Telephone encounter Note Called patient and he uses [facility]. [facility] 05-12-2023 Telephone encounter Note [facility] faxed a refill request for glycopyrrolate 2 mg tablet. [facility] 04-26-2023 History of Presen t illness Narrative Images from the original note were not included. Fifi Alberts M.D. FAMILY MEDICINE [facility] [address] [address] Assessments/Plan: 1. Memory impairment - [facility] Neurology - Comprehensive metabolic panel - TSH - Vitamin B12 - CBC 2. Mild persistent asthma with acute exacerbation - [facility] Pulmonary/Pulmonology Oziel presents today with memory concerns. I have advised on metabolic and baseline testing. Referral to Neurology. I also advised on pulmonary follow up due to increased shortness of breath. Exam is unremarkable so no acute exacerbation. She has a allergy to prednisone. Not sure if she will have similar reaction to inhaled glucocorticosteroids. She was advised to continue with albuterol as needed. Follow up for Next scheduled follow-up. Reason for Appointment: Oziel Roper is a 23 y.o. female who presents today for: Chief Complaint Patient presents with Memory Loss Pt said she can't remember anything that happens few days ago, Subjective Reports falling down an elevator shaft when she was [age] years old. She reports she never sustained any serious injuries. She reports falling approximately 3 stories. She has not true recollection of the event. She was accompanying her grandmother at a job site (?) She mentions however lately she has been having loss time and memory from the day before or a few days ago. She is asked to recall specific things about an event or recall and she is unable. She can not recall memories of her childhood with her parents and her brother. She can not recall. She denies any traumatic events other that the accident mentioned above to trigger her not to recall or remember. Memory Loss Patient reports onset of memory loss was more than 1 year ago. Onset quality is undetermined. Symptoms associated with memory loss include changes in short-term memory, changes in long-term memory and repetitive questions. Symptoms do not include difficulty recalling words or day/night behavior changes. Patient does not have the following behavorial problems associated with memory loss: paranoia, suspiciousness or hallucinations. Family and/or patient concerns for memory loss include driving (she does not drive so not an issue for her). The family and/or patient does not have the following concerns associated with memory loss: medication errors, cooking or preparing meals. The patient manages own medication regimen. Patient lives with partner. Patient lives in a/an own home. Review of Systems All other systems reviewed and are negative. Current Outpatient Medications on File Prior to Visit Medication Sig Dispense Refill albuterol 108 (90 Base) MCG/ACT inhaler Inhale 2 puffs every 6 hours as needed for wheezing or shortness of breath. 18 g 3 Continuous Blood Gluc Load Out Person (FreeStyle Kierra 2 Leon) device 1 Units 4 times daily (before meals and nightly). 1 each 0 Continuous Blood Gluc Sensor (FreeStyle Kierra 2 Sensor) misc Change sensor every two weeks to monitor blood sugars 2 each 11 dulaglutide (Trulicity) 3 MG/0.5ML solution pen-injector Inject 3 mg under the skin 1 (one) time per week. 4 each 3 glycopyrrolate (Robinul) 2 MG tablet Take 1 tablet (2 mg) by mouth daily. 90 tablet 3 omeprazole (PriLOSEC) [address] capsule Take 20 mg by mouth daily. SUMAtriptan (Imitrex) 50 MG tablet Take 1 tablet (50 mg) by mouth Once as needed for migraine. May repeat after 2 hours. 9 tablet 3 No current facility-administered medications on file prior to visit. Allergies Allergen Reactions Prednisone Other and Anaphylaxis Latex Swelling Cetirizine Swelling Metformin Nausea And Vomiting Microgestin Fe 1-20 [Norethin Yaya-Eth Estrad-Fe] Unknown and Other Norgestimate-Eth Estradiol Angioedema Other Other reaction(s): Anaphylaxis Objective Vitals: 04/26/23 1500 BP: 117/79 BP Location: Left arm Patient Position: Sitting Pulse: 91 SpO2: 96% Weight: 242 lb 6.4 oz (110 kg) Height: 5' 6 (1.676 m) Physical Exam Vitals reviewed. Constitutional: General: She is not in acute distress. Cardiovascular: Rate and Rhythm: Normal rate and regular rhythm. Pulses: Normal pulses. Heart sounds: Normal heart sounds. Pulmonary: Effort: Pulmonary effort is normal. Breath sounds: Normal breath sounds. No wheezing, rhonchi or rales. Neurological: General: No focal deficit present. Cranial Nerves: No cranial nerve deficit. Motor: No weakness. Coordination: Coordination normal. Medication indications, directions, and side effects were discussed. The following were reviewed: [] Laboratory Results [] Imaging Results [] Images [] Clinic Notes [] D/C Summary [] ED summary (Please note: Portions of this note were completed with a voice recognition program.Efforts were made to edit the dictations but occasionally words and phrases are mis-transcribed.) documented in this encounter [facility] 04-06-2023 Telephone encounter Note Name of caller: Oziel Contact phone number: [phone] Relationship to Patient: patient Provider: Dr Alberts Practice: [facility] Chief Complaint/Reason for Call: Patient called to follow up on medication request for dulaglutide (Trulicity) 3 MG/0.5ML solution pen-injector . Patient informed that her PCP usually has 24-48 business hours to approve medication for refill, and Dr Alberts has not review request yet. Patient voiced understanding, and states that she would need order by next week-FYI. Best time of day caller can be reached: any Patient advised that office/PCP has 24-48 business hours to return their call: Yes [facility] 04-06-2023 Miscellaneous Notes Name of caller: Oziel Contact phone number: [phone] Relationship to Patient: patient Provider: Dr Alberts Practice: [facility] Chief Complaint/Reason for Call: Patient called to follow up on medication request for dulaglutide (Trulicity) 3 MG/0.5ML solution pen-injector . Patient informed that her PCP usually has 24-48 business hours to approve medication for refill, and Dr Alberts has not review request yet. Patient voiced understanding, and states that she would need order by next week-I. Best time of day caller can be reached: any Patient advised that office/PCP has 24-48 business hours to return their call: Yes Ordering provider: Aristeo Date of last office visit: 02/26/23 Date of next office visit: 06/07/23 Updated/Validated preferred pharmacy: Yes Patient instructed to contact the pharmacy prior to picking up the medication: Yes (1) Medication name: dulaglutide Medication dosage: 3MG/0.5ML Monthly quantity needed: 4 How many day supply requestin days Medication route: subcutaneous injection (SQ/SC) Medication administration time(s): weekly If taking medication PRN, reason for taking medication: N/A If this is a controlled substance do you receive this or any other controlled medication from any other doctor or facility: N/A Date of last refill (see medication tab): 12/10/22 documented in this encounter [facility] 04-05-2023 Telephone encounter Note Ordering provider: Aristeo Date of last office visit: 02/26/23 Date of next office visit: 06/07/23 Updated/Validated preferred pharmacy: Yes Patient instructed to contact the pharmacy prior to picking up the medication: Yes (1) Medication name: dulaglutide Medication dosage: 3MG/0.5ML Monthly quantity needed: 4 How many day supply requestin days Medication route: subcutaneous injection (SQ/SC) Medication administration time(s): weekly If taking medication PRN, reason for taking medication: N/A If this is a controlled substance do you receive this or any other controlled medication from any other doctor or facility: N/A Date of last refill (see medication tab): 12/10/22 [facility] 03-29-2023 History of Presen t illness Narrative The patient has been holding the below medications for one week as ordered by Dr. Alberts below: Dr Alberts: She has apparently been having low blood sugars. She can HOLD the Januvia and the Trulicity. Resume the Trulicity in one week if her symptoms resolve The patient wants to know whether should start Januvia again with her Trulicity. The patient stated has been feeling ok. Last recorded blood sugars are: 189, 158, 101 fasting, 151 fasting, 176 after eating breakfast, 176 after dinner, 104 before bed, 180 in the morning fasting and went down to 102 around 12:57 pm (patient hadn't eaten anything), 117 fasting, 169 after meal, 197 after eating, 223 after eating this weekend. This nurse is encouraging small frequent low carbohydrate meals paired with lean proteins. This nurse has provided patient with some example snacks also. This nurse also encouraged hydration with water. Thank you, Feel free to reach out if you need anything. Sincerely, Nikole Magaña Ambulatory vehicle sales professional [phone] [address] [place] [address] In the message above it says should she start Januvia again with her Trulicity -- so she has stopped BOTH? If she has STOPPED both she can resume her Trulicity only. If she has been on the Trulicity but stopped the Januvia only then she can HOLD the Januvia indefinitely. Patient advised to continue to hold the Januvia and restart Trulicity today. Patient aware and knows to call with any questions or concerns. documented in this encounter [facility] 03-22-2023 Telephone encounter Note Called pt and she talked to nikole already. BS was at 67 [facility] 03-22-2023 Miscellaneous Notes Called pt and she talked to nikole already. BS was at 67 S: Patient spoke with [facility] nurse regarding hypoglycemia. B: Onset of symptoms/concern 2 weeks. AYEDN: 02/26/2023 - Type 2 Diabetes. A: Patient reports BS: 53 twenty minutes ago, rechecked BS now at 53, blurred vision, shakiness, headache. Reports she is not home alone, someone is with her and she feels safe. Denies vomiting, dry mouth, fainting, weakness, diarrhea, dark urine. Reports taking two Glucose tablets, and a cookie at this time. BS: 58 after 10 minutes. Patient encouraged to drink orange juice with sugar, or additional glucose tablets at this time. Patient states she wants to wait a little bit longer before trying additional intervention. Reports BS has been repeatedly dropping into the 50's throughout the day for a few weeks since starting prescribed Trulicity. Patient is taking SITagliptin (Januvia) 100 MG tablet 1 tablet by mouth daily and dulaglutide (Trulicity) 3 MG/0.5ML solution pen-injector 3 mg under the skin one time per week (on Wednesdays per patient). R: Patient advised to go to ED at this time for evaluation. Patient requesting second opinion at this time. Office visit offered and declined for follow-up. windows vmware administrator provider, Dr. Alberts messaged at this time. Per Dr. Alberts, She is wearing a CGM correct? She can continue to monitor and eat a meal if she can. Repeat the BS in 30 min. HOLD the Trulicity on Wednesday. Patient reports wearing a CGM at this time. Patient advised, verbalized understanding, patient asking if she should still take Januvia daily. Patient advised to wait on hold while this RN speaks to Dr. Alberts in regard to further instructions, patient requesting a call back, does not want to wait on hold. Call back number verified prior to disconnecting with patient. Per Dr. Alberts, She can HOLD the Januvia and the Trulicity. Resume the Trulicity in one week if her symptoms resolve. Attempted to contact patient and patient's spouse to advise of Dr. Alberts orders six times [address] success. [address]. Alberts and Ralph Magaña notified at this time of inability to contact patient with further orders. Per Ralph Magaña, I will contact too! Please reach out to patient and advise. Reason for Disposition Low blood glucose (< 70 mg/dL or 3.9 mmol/L) persists > 30 minutes AND using low blood sugar Care Advice Protocols used: Diabetes - Low Blood Puvyx-LEPCM-JZ documented in this encounter [facility] 03-22-2023 Telephone encounter Note S: Patient spoke with [facility] nurse regarding hypoglycemia. B: Onset of symptoms/concern 2 weeks. AYDEN: 02/26/2023 - Type 2 Diabetes. A: Patient reports BS: 53 twenty minutes ago, rechecked BS now at 53, blurred vision, shakiness, headache. Reports she is not home alone, someone is with her and she feels safe. Denies vomiting, dry mouth, fainting, weakness, diarrhea, dark urine. Reports taking two Glucose tablets, and a cookie at this time. BS: 58 after 10 minutes. Patient encouraged to drink orange juice with sugar, or additional glucose tablets at this time. Patient states she wants to wait a little bit longer before trying additional intervention. Reports BS has been repeatedly dropping into the 50's throughout the day for a few weeks since starting prescribed Trulicity. Patient is taking SITagliptin (Januvia) 100 MG tablet 1 tablet by mouth daily and dulaglutide (Trulicity) 3 MG/0.5ML solution pen-injector 3 mg under the skin one time per week (on Wednesdays per patient). R: Patient advised to go to ED at this time for evaluation. Patient requesting second opinion at this time. Office visit offered and declined for follow-up. windows vmware administrator provider, Dr. Alberts messaged at this time. Per Dr. Alberts, She is wearing a CGM correct? She can continue to monitor and eat a meal if she can. Repeat the BS in 30 min. HOLD the Trulicity on Wednesday. Patient reports wearing a CGM at this time. Patient advised, verbalized understanding, patient asking if she should still take Januvia daily. Patient advised to wait on hold while this RN speaks to Dr. Alberts in regard to further instructions, patient requesting a call back, does not want to wait on hold. Call back number verified prior to disconnecting with patient. Per Dr. Alberts, She can HOLD the Januvia and the Trulicity. Resume the Trulicity in one week if her symptoms resolve. Attempted to contact patient and patient's spouse to advise of Dr. Alberts orders six times [address] success. Dr. Alberts and Ralph Magaña notified at this time of inability to contact patient with further orders. Per Ralph Magaña, I will contact too! Please reach out to patient and advise. Reason for Disposition Low blood glucose (< 70 mg/dL or 3.9 mmol/L) persists > 30 minutes AND using low blood sugar Care Advice Protocols used: Diabetes - Low Blood Wmsid-FLFXC-LZ [facility] 03-03-2023 Evaluation + Plan note Associated Problem(s): Class 2 severe obesity due to excess calories with serious comorbidity and body mass index (BMI) of 38.0 to 38.9 in adult Advised on choices to make with experiencing the dietary suppression with the Trulcity. Increase protein and lower carbohydrates. [facility] 03-03-2023 Miscellaneous Notes Associated Problem(s): Class 2 severe obesity due to excess calories with serious comorbidity and body mass index (BMI) of 38.0 to 38.9 in adult Advised on choices to make with experiencing the dietary suppression with the Trulcity. Increase protein and lower carbohydrates. Associated Problem(s): Type 2 diabetes mellitus without complication, without long-term current use of insulin (CMS/HCC) ([facility]) 6.2% A1c. Improved greatly. - Continue with the Januvia 100 mg daily - Trulicity 3 mg weekly documented in this encounter [facility] 03-03-2023 Evaluation + Plan note Associated Problem(s): Type 2 diabetes mellitus without complication, without long-term current use of insulin (CMS/HCC) ([facility]) 6.2% A1c. Improved greatly. - Continue with the Januvia 100 mg daily - Trulicity 3 mg weekly [facility] 02-26-2023 History of Presen t illness Narrative Images from the original note were not included. Fifi Alberts M.D. [facility] Health [address] [place] [address] Assessments/Plan: 1. Type 2 diabetes mellitus without complication, without long-term current use of insulin (CMS/HCC) ([facility]) Assessment & Plan: 6.2% A1c. Improved greatly. - Continue with the Januvia 100 mg daily - Trulicity 3 mg weekly Orders: - AMB POC HEMOGLOBIN A1C 2. Class 2 severe obesity due to excess calories with serious comorbidity and body mass index (BMI) of 38.0 to 38.9 in adult Assessment & Plan: Advised on choices to make with experiencing the dietary suppression with the Trulcity. Increase protein and lower carbohydrates. Follow up in about 3 months (around 05/28/2023) for f/u diabetes. Reason for Appointment: Oziel Roper is a 23 y.o. female who presents today for: Chief Complaint Patient presents with Follow-up 3 months follow up for DM. Subjective Diabetes She presents for her follow-up diabetic visit. She has type 2 diabetes mellitus. Her disease course has been improving. There are no hypoglycemic associated symptoms. There are no diabetic associated symptoms. There are no hypoglycemic complications. Symptoms are stable. There are no diabetic complications. Risk factors for coronary artery disease include obesity and family history. Current diabetic treatments: GLP-1 agonist and oral agent. She is compliant with treatment all of the time. Review of Systems All other systems reviewed and are negative. Current Outpatient Medications on File Prior to Visit Medication Sig Dispense Refill albuterol 108 (90 Base) MCG/ACT inhaler Inhale 2 puffs every 6 hours as needed for wheezing or shortness of breath. 18 g 3 Continuous Blood Gluc Load Out Person (FreeStyle Kierra 2 Leon) device 1 Units 4 times daily (before meals and nightly). 1 each 0 Continuous Blood Gluc Sensor (FreeStyle Kierra 2 Sensor) misc Change sensor every two weeks to monitor blood sugars 2 each 11 dulaglutide (Trulicity) 3 MG/0.5ML solution pen-injector Inject 3 mg under the skin 1 (one) time per week. 4 each 3 glycopyrrolate (Robinul) 2 MG tablet Take 1 tablet (2 mg) by mouth daily. 90 tablet 3 omeprazole (PriLOSEC) [address] capsule Take 20 mg by mouth daily. SITagliptin (Januvia) 100 MG tablet Take 1 tablet (100 mg) by mouth daily. 30 tablet 3 SUMAtriptan (Imitrex) 50 MG tablet Take 1 tablet (50 mg) by mouth Once as needed for migraine. May repeat after 2 hours. 9 tablet 3 [DISCONTINUED] aluminum chloride (Drysol) 20 % external solution 1 application at bedtime Strength: 20 % 60 mL 3 [DISCONTINUED] Blood Glucose Monitoring Suppl device Use to check blood sugars 1x/daily E11.65 (Patient not taking: Reported on 02/26/2023) 1 Units 0 [DISCONTINUED] glucose blood (OneTouch Ultra) test strip 1 each by Other route daily. 100 each 3 [DISCONTINUED] mupirocin (Bactroban) 2 % ointment Apply topically 2 times daily. (Patient not taking: Reported on 02/26/2023) 22 g 2 [DISCONTINUED] pantoprazole (ProtoNix) 40 MG EC tablet take 1 tablet by mouth before breakfast 90 tablet 1 No current facility-administered medications on file prior to visit. Allergies Allergen Reactions Prednisone Other and Anaphylaxis Latex Swelling Cetirizine Swelling Metformin Nausea And Vomiting Microgestin Fe 1-20 [Norethin Yaya-Eth Estrad-Fe] Unknown and Other Norgestimate-Eth Estradiol Angioedema Other Other reaction(s): Anaphylaxis Objective Vitals: 02/26/23 1327 BP: 115/78 BP Location: Left arm Patient Position: Sitting Pulse: 91 Temp: 36.4 C (97.5 F) SpO2: 98% Weight: 239 lb (108 kg) Height: 5' 6 (1.676 m) Physical Exam Vitals reviewed. Constitutional: Appearance: She is obese. Cardiovascular: Rate and Rhythm: Normal rate and regular rhythm. Pulses: Normal pulses. Heart sounds: Normal heart sounds. Pulmonary: Effort: Pulmonary effort is normal. Breath sounds: Normal breath sounds. Abdominal: General: Bowel sounds are normal. Palpations: Abdomen is soft. Medication indications, directions, and side effects were discussed. The following were reviewed: [] Laboratory Results [] Imaging Results [] Images [] Clinic Notes [] D/C Summary [] ED summary (Please note: Portions of this note were completed with a voice recognition program.Efforts were made to edit the dictations but occasionally words and phrases are mis-transcribed.) documented in this encounter [facility] 02-02-2023 Telephone encounter Note Patient is out of medication. Patient stated she is having some wheezing from being out of inhaler, advised patient to speak with triage nurse, patient declined to speak with one. Medication name: albuterol 108 (90 Base) MCG/ACT inhaler Medication dosage: 2 puff(s) Monthly quantity needed: 18 g How many day supply requestin days Medication route: inhalation (inhaler) Medication administration time(s): every 6 hours If taking medication PRN, reason for taking medication: for wheezing, shortness of breath If this is a controlled substance do you receive this or any other controlled medication from any other doctor or facility: N/A Ordering provider: Suzanna Mckeon Date of last office visit: 11.18.2022 Date of next office visit: 02.26.2023 Date of last refill: (see medication tab): 02.13.2022 Updated/Validated preferred pharmacy: Yes [id number] - [place], [place] - [address] Patient instructed to contact the pharmacy prior to picking up the medication: Yes [facility] 02-02-2023 Miscellaneous Notes Patient is out of medication. Patient stated she is having some wheezing from being out of inhaler, advised patient to speak with triage nurse, patient declined to speak with one. Medication name: albuterol 108 (90 Base) MCG/ACT inhaler Medication dosage: 2 puff(s) Monthly quantity needed: 18 g How many day supply requestin days Medication route: inhalation (inhaler) Medication administration time(s): every 6 hours If taking medication PRN, reason for taking medication: for wheezing, shortness of breath If this is a controlled substance do you receive this or any other controlled medication from any other doctor or facility: N/A Ordering provider: Suzanna Mckeon Date of last office visit: 11.18.2022 Date of next office visit: 02.26.2023 Date of last refill: (see medication tab): 02.13.2022 Updated/Validated preferred pharmacy: Yes [email or web address] [place], [place] - [address] Patient instructed to contact the pharmacy prior to picking up the medication: Yes documented in this encounter [facility] 01-22-2023 Note Addended by: FIFI ALBERTS on: 01/22/2023 03:01 PM Modules accepted: Orders [facility] 01-21-2023 Telephone encounter Note Messaged patient already and copied Nikole [facility] 01-21-2023 Miscellaneous Notes Messaged patient already and copied Nikole Just so you know, I also sent a similar message from patient advice. S: Patient spoke with [facility] nurse regarding UTI and medication question B: Onset of symptoms/concern 2 months A: Patient is questioning if she should stop taking Jardiance due having almost a constant UTI. She believes that Jardiance to be causing her urinary symptoms. Currently patient is frequency, burning with urination, and she is able to get a good stream of urine. Patient denies urgency, blood in urine, back pain, fever, R: Patient unable to come tomorrow, No appointment availability in office, advised patient to be seen in UC and to drink plenty of fluids. Please reach out to patient about Jardiance. Patient understands care advice. No further needs at this time. Patient instructed to call back with new or worsening symptoms. Reason for Disposition Urinating more frequently than usual (i.e., frequency) Protocols used: Urinary [id number] documented in this encounter [facility] 01-21-2023 Telephone encounter Note Just so you know, I also sent a similar message from patient advice. [facility] 01-21-2023 Telephone encounter Note S: Patient spoke with [facility] nurse regarding UTI and medication question B: Onset of symptoms/concern 2 months A: Patient is questioning if she should stop taking Jardiance due having almost a constant UTI. She believes that Jardiance to be causing her urinary symptoms. Currently patient is frequency, burning with urination, and she is able to get a good stream of urine. Patient denies urgency, blood in urine, back pain, fever, R: Patient unable to come tomorrow, No appointment availability in office, advised patient to be seen in UC and to drink plenty of fluids. Please reach out to patient about Jardiance. Patient understands care advice. No further needs at this time. Patient instructed to call back with new or worsening symptoms. Reason for Disposition Urinating more frequently than usual (i.e., frequency) Protocols used: Urinary [id number] [facility] 01-11-2023 Miscellaneous Notes Patient given results and verbalized understanding of instructions given. Clemencia Yoder Left another patient to return call for results and recommendations.Wendie Mathews LPN In addition to initial phone encounter and results, patient urine culture has resulted. She is having bacterial growth. The ATB, Macrobid, she was prescribed on her initial visit is appropriate and she needs to complete. Left a message for pt to call the office and ask to speak to a nurse. Maribel Arreola LPN Please call and let patient know she was positive for bacterial vaginosis on her vaginal swabs. This is not an STD, it is an overgrowth of bacteria found in the vaginal area. We will treat with Flagyl. Recommend no alcohol while on this antibiotic as it will make you sick. Follow-up with women's health if not improving. Continue the Macrobid for the UTI as your urine culture is not back yet. documented in this encounter [facility] 01-07-2023 Note HNO ID: [id number] Author: Tiki Calles APRN.TUBE SIZER OPERATOR Service: ? Author Type: Nurse Practitioner Type: Progress Notes Filed: 01/07/2023 11:06 AM Note Text: This note was created using [employer]ered [employer]. Subjective Oziel Roper is a 22 year old female. 22 year old female with PMH asthma, DM, sleep apnea presents for female complaints. Acute onset 5 days ago +urgency +frequency +burning +vaginal discharge Yellow +back pain ; lower Sexually active LMP-12/22/22 Denies concerns for or STI. The history is provided by the patient. No sign language interpreter was used. UTI This is a new problem. The current episode started more than 2 days ago. The problem occurs every urination. The problem has been gradually worsening. The quality of the pain is described as burning. The pain is at a severity of 5/10. The pain is moderate. There has been no fever. She is Sexually active. Associated symptoms include discharge, frequency and urgency. Pertinent negatives include no chills, no sweats, no nausea, no vomiting, no hematuria, no hesitancy, no possible and no flank pain. She has tried nothing for the symptoms. Her past medical history does not include kidney stones, single kidney, urological procedure, recurrent UTIs, urinary stasis or catheterization. PAST MEDICAL HISTORY Diagnosis Date Asthma Depression Diabetes mellitus (HCC) Generalized anxiety disorder No past surgical history on file. ALLERGIES Norethindrone Ac-Eth Estradiol, Norgestimate-Ethinyl Estradiol, Prednisone, and Zyrtec [Cetirizine] MEDICATIONS sodium chloride (SALINE MIST) 0.65 % nasal spray Use 2 Sprays in the nose two times a day as needed. azelastine 0.1% nasal spray Use 1 [place] in each nostril two times a day. fluticasone (FLONASE) 50 mcg/actuation nasal spray Use 2 Sprays in each nostril two times a day. Rinse mouth after use. LIDOCAINE VISCOUS 2 % solution Take 15 mL by mouth three times a day as needed. JARDIANCE 10 mg tablet Take 1 tablet by mouth every afternoon. SUMAtriptan (IMITREX) 50 mg tablet TAKE 1 TABLET BY MOUTH NEEDED FOR MIGRAINE HEADACHE; MAY REPEAT AFTER 2 HOURS FREESTYLE KIERRA 2 SENSOR kit mupirocin (BACTROBAN) 2 % ointment Use 2 g in the nose. pantoprazole DR (PROTONIX) 40 mg tablet Take 40 mg by mouth twice daily. glycopyrrolate (ROBINUL) 1 mg tablet Take 2 mg by mouth twice daily. TRULICITY 1.5 mg/0.5 mL pen injector Inject 3 mg subcutaneously one time a week. nitrofurantoin monohydrate and macrocrystal (MACROBID) 100 mg capsule Take 1 capsule by mouth two times a day for 5 days. metformin HCl (METFORMIN ORAL) Take 500 mg by mouth twice daily. FAMILY HISTORY Problem Relation Age of Onset Diabetes Mother Cervical Cancer Maternal Grandmother did not require hysterectomy Lung Cancer Maternal Grandmother Multiple Sclerosis Maternal Grandmother Breast Cancer Maternal great-grandmother diagnosed >50y Social History Tobacco Use Smoking status: Never Smokeless tobacco: Never Substance Use Topics Alcohol use: Never Drug use: Never Review of Systems Constitutional: Negative for chills. Eyes: Negative for photophobia, pain, discharge, redness, itching and visual disturbance. Respiratory: Negative for apnea, cough, choking and chest tightness. Cardiovascular: Negative for chest pain, palpitations and leg swelling. Gastrointestinal: Negative for abdominal pain, nausea and vomiting. Genitourinary: Positive for dysuria, frequency and urgency. Negative for flank pain, hematuria and hesitancy. Musculoskeletal: Positive for back pain. Skin: Negative for color change, pallor, rash and wound. Allergic/Immunologic: Negative for environmental allergies, food allergies and immunocompromised state. Neurological: Negative for dizziness and facial asymmetry. Hematological: Negative for adenopathy. Does not bruise/bleed easily. Psychiatric/Behavioral: Negative for agitation and behavioral problems. Objective BP 112/76 Pulse 89 Temp 36.3 ?C (97.4 ?F) (Tympanic) Resp 16 Wt 109.3 kg (241 lb) LMP 05/13/2022 (Approximate) SpO2 97% BMI 38.90 kg/m? Physical Exam Vitals and nursing note reviewed. Constitutional: General: She is not in acute distress. Appearance: Normal appearance. She is normal weight. She is not ill-appearing, toxic-appearing or diaphoretic. HENT: Head: Normocephalic and atraumatic. Right Ear: Ear canal and external ear normal. Left Ear: Ear canal and external ear normal. Nose: Nose normal. No congestion or rhinorrhea. Mouth/Throat: Mouth: Mucous membranes are moist. Pharynx: No oropharyngeal exudate or posterior oropharyngeal erythema. Eyes: General: Right eye: No discharge. Left eye: No discharge. Extraocular Movements: Extraocular movements intact. Conjunctiva/sclera: Conjunctivae normal. Pupils: Pupils are equal, round, and reactive to light. Cardiovascular: Rate and Rhythm: Nor (more content not included)... [facility] 12-23-2022 Note HNO ID: [id number] Author: Tia Harding APRN.TUBE SIZER OPERATOR Service: ? Author Type: Nurse Practitioner Type: Progress Notes Filed: 12/23/2022 6:36 PM Note Text: CC: Patient presents with: Cough: Cough, congestion, drainage and ST x 3 days HPI: Oziel Roper is a 22 year old female who presents to the office with complaint of head congestion, cough, nonproductive, and sore throat for a week. Symptoms are worsening Associated symptoms includes vomiting . Denies fever and diarrhea. Treatments tried include nothing so far. with no relief of symptoms. Sick contacts: unknown. History of asthma, frequent episodes of bronchitis, chronic bronchitis, bronchiectasis or COPD: No Smoker: No Seasonal/environmental allergies: No The ROS is otherwise negative. The patient's pmh, medications, allergies, and past visits are reviewed. PHYSICAL EXAM: BP 122/78 Pulse 101 Temp 36.9 ?C (98.5 ?F) (Tympanic) Resp 18 Wt 112.1 kg (247 lb 3.2 oz) LMP 05/13/2022 (Approximate) SpO2 99% BMI 39.90 kg/m? General appearance: alert, cooperative, pleasant, in no acute distress Head: Normocephalic Eyes: EOM's intact, conjunctiva pink and moist, no icterus, sclera white, non-injected Oropharynx:moderate erythema, without exudates present Heart: Negative. RRR without obvious murmur, gallop, or rubs. No ectopy. Lungs: clear to auscultation, without rales or wheeze, good air exchange PAST MEDICAL HISTORY Diagnosis Date Asthma Depression Diabetes mellitus (HCC) Generalized anxiety disorder No past surgical history on file. ALLERGIES Norethindrone Ac-Eth Estradiol, Norgestimate-Ethinyl Estradiol, Prednisone, and Zyrtec [Cetirizine] MEDICATIONS sodium chloride (SALINE MIST) 0.65 % nasal spray Use 2 Sprays in the nose two times a day as needed. azelastine 0.1% nasal spray Use 1 [place] in each nostril two times a day. fluticasone (FLONASE) 50 mcg/actuation nasal spray Use 2 Sprays in each nostril two times a day. Rinse mouth after use. LIDOCAINE VISCOUS 2 % solution Take 15 mL by mouth three times a day as needed. JARDIANCE 10 mg tablet Take 1 tablet by mouth every afternoon. SUMAtriptan (IMITREX) 50 mg tablet TAKE 1 TABLET BY MOUTH NEEDED FOR MIGRAINE HEADACHE; MAY REPEAT AFTER 2 HOURS cephALEXin (KEFLEX) 500 mg capsule Take 1 capsule by mouth every 12 (twelve) hours. FREESTYLE KIERRA 2 SENSOR kit mupirocin (BACTROBAN) 2 % ointment Use 2 g in the nose. pantoprazole DR (PROTONIX) 40 mg tablet Take 40 mg by mouth twice daily. glycopyrrolate (ROBINUL) 1 mg tablet Take 2 mg by mouth twice daily. TRULICITY 1.5 mg/0.5 mL pen injector Inject 3 mg subcutaneously one time a week. metformin HCl (METFORMIN ORAL) Take 500 mg by mouth twice daily. FAMILY HISTORY Problem Relation Age of Onset Diabetes Mother Cervical Cancer Maternal Grandmother did not require hysterectomy Lung Cancer Maternal Grandmother Multiple Sclerosis Maternal Grandmother Breast Cancer Maternal great-grandmother diagnosed >50y Social History Tobacco Use Smoking status: Never Smokeless tobacco: Never Substance Use Topics Alcohol use: Never Drug use: Never ASSESSMENT/PLAN: 1. Sore throat - ICD9: 462, ICD10: J02.9 (primary diagnosis) - STREP A MOLECULAR (POC) - neg 2. URI, acute - ICD9: 465.9, ICD10: J06.9 - AMOXICILLIN 875 MG-POTASSIUM CLAVULANATE 125 MG TABLET Prescription instructions reviewed with patient as applicable. Potential red flag symptoms discussed with the patient. Reviewed appropriate action plan to take if red flag symptoms occur. Patient agreeable to treatment plan. Tia Harding APRN.[facility] 12-23-2022 History of Presen t illness Narrative CC: Patient presents with: Cough: Cough, congestion, drainage and ST x 3 days HPI: Oziel Roper is a 22 year old female who presents to the office with complaint of head congestion, cough, nonproductive, and sore throat for a week. Symptoms are worsening Associated symptoms includes vomiting . Denies fever and diarrhea. Treatments tried include nothing so far. with no relief of symptoms. Sick contacts: unknown. History of asthma, frequent episodes of bronchitis, chronic bronchitis, bronchiectasis or COPD: No Smoker: No Seasonal/environmental allergies: No The ROS is otherwise negative. The patient's pmh, medications, allergies, and past visits are reviewed. PHYSICAL EXAM: BP 122/78 Pulse 101 Temp 36.9 C (98.5 F) (Tympanic) Resp 18 Wt 112.1 kg (247 lb 3.2 oz) LMP 05/13/2022 (Approximate) SpO2 99% BMI 39.90 kg/m General appearance: alert, cooperative, pleasant, in no acute distress Head: Normocephalic Eyes: EOM's intact, conjunctiva pink and moist, no icterus, sclera white, non-injected Oropharynx:moderate erythema, without exudates present Heart: Negative. RRR without obvious murmur, gallop, or rubs. No ectopy. Lungs: clear to auscultation, without rales or wheeze, good air exchange PAST MEDICAL HISTORY Diagnosis Date Asthma Depression Diabetes mellitus (HCC) Generalized anxiety disorder No past surgical history on file. ALLERGIES Norethindrone Ac-Eth Estradiol, Norgestimate-Ethinyl Estradiol, Prednisone, and Zyrtec [Cetirizine] MEDICATIONS sodium chloride (SALINE MIST) 0.65 % nasal spray Use 2 Sprays in the nose two times a day as needed. azelastine 0.1% nasal spray Use 1 [place] in each nostril two times a day. fluticasone (FLONASE) 50 mcg/actuation nasal spray Use 2 Sprays in each nostril two times a day. Rinse mouth after use. LIDOCAINE VISCOUS 2 % solution Take 15 mL by mouth three times a day as needed. JARDIANCE 10 mg tablet Take 1 tablet by mouth every afternoon. SUMAtriptan (IMITREX) 50 mg tablet TAKE 1 TABLET BY MOUTH NEEDED FOR MIGRAINE HEADACHE; MAY REPEAT AFTER 2 HOURS cephALEXin (KEFLEX) 500 mg capsule Take 1 capsule by mouth every 12 (twelve) hours. FREESTYLE KIERRA 2 SENSOR kit mupirocin (BACTROBAN) 2 % ointment Use 2 g in the nose. pantoprazole DR (PROTONIX) 40 mg tablet Take 40 mg by mouth twice daily. glycopyrrolate (ROBINUL) 1 mg tablet Take 2 mg by mouth twice daily. TRULICITY 1.5 mg/0.5 mL pen injector Inject 3 mg subcutaneously one time a week. metformin HCl (METFORMIN ORAL) Take 500 mg by mouth twice daily. FAMILY HISTORY Problem Relation Age of Onset Diabetes Mother Cervical Cancer Maternal Grandmother did not require hysterectomy Lung Cancer Maternal Grandmother Multiple Sclerosis Maternal Grandmother Breast Cancer Maternal great-grandmother diagnosed >50y Social History Tobacco Use Smoking status: Never Smokeless tobacco: Never Substance Use Topics Alcohol use: Never Drug use: Never ASSESSMENT/PLAN: 1. Sore throat - ICD9: 462, ICD10: J02.9 (primary diagnosis) - STREP A MOLECULAR (POC) - neg 2. URI, acute - ICD9: 465.9, ICD10: J06.9 - AMOXICILLIN 875 MG-POTASSIUM CLAVULANATE 125 MG TABLET Prescription instructions reviewed with patient as applicable. Potential red flag symptoms discussed with the patient. Reviewed appropriate action plan to take if red flag symptoms occur. Patient agreeable to treatment plan. Tia Harding APRN.EVANS documented in this encounter [facility] 12-16-2022 Note HNO ID: [id number] Author: Kristin Rosales APRN.[facility] Service: ? Author Type: Nurse Practitioner Type: Progress Notes Filed: 12/16/2022 5:28 PM Note Text: This note was created using [employer]. Subjective Oziel Roper is a 22 year old female. Presents today with 2 days of nasal congestion, cough. Denies sick contacts. Denies fever, sore throat, shortness of breath, chest pains, Nausea, vomiting, changes in bowel or bladder or skin rashes. Taking cold medications. Using Afrin regularly. Review of Systems Constitutional: Negative. HENT: Positive for congestion (mild). Negative for ear pain, sinus pressure, sore throat and trouble swallowing. Eyes: Negative. Respiratory: Positive for cough. Negative for chest tightness, shortness of breath and wheezing. Cardiovascular: Negative. Gastrointestinal: Negative. Genitourinary: Negative. Skin: Negative. Objective BP 122/80 Pulse 84 Temp 36.4 ?C (97.6 ?F) (Tympanic) Resp 18 Wt 113.9 kg (251 lb) LMP 05/13/2022 (Approximate) SpO2 98% BMI 40.51 kg/m? Physical Exam Constitutional: General: She is not in acute distress. Appearance: Normal appearance. She is obese. She is not ill-appearing or toxic-appearing. HENT: Head: Normocephalic and atraumatic. Right Ear: Ear canal and external ear normal. Left Ear: Ear canal and external ear normal. Ears: Comments: TM's slightly bulging with clear fluid Nose: Congestion (mild mucosal swelling) and rhinorrhea (clear fluid, mild cobblestoning in posterior oropharynx) present. Mouth/Throat: Mouth: Mucous membranes are moist. Pharynx: Oropharynx is clear. No oropharyngeal exudate or posterior oropharyngeal erythema. Eyes: Extraocular Movements: Extraocular movements intact. Conjunctiva/sclera: Conjunctivae normal. Pupils: Pupils are equal, round, and reactive to light. Cardiovascular: Rate and Rhythm: Normal rate and regular rhythm. Pulses: Normal pulses. Heart sounds: Normal heart sounds. Pulmonary: Effort: Pulmonary effort is normal. Breath sounds: Normal breath sounds. Abdominal: General: Bowel sounds are normal. Palpations: Abdomen is soft. Musculoskeletal: Cervical back: Normal range of motion and neck supple. No tenderness. Lymphadenopathy: Cervical: No cervical adenopathy. Skin: General: Skin is warm and dry. Capillary Refill: Capillary refill takes less than 2 seconds. Neurological: Mental Status: She is alert. Assessment and Plan 1. URI, acute - COVID AND INFLUENZA A/B AND RSV NAAT, ROUTINE 2. Seasonal allergic rhinitis due to other allergic trigger - sodium chloride (SALINE MIST) 0.65 % nasal spray; Use 2 Sprays in the nose two times a day as needed. Dispense: 88 mL; Refill: 5 - azelastine 0.1% nasal spray; Use 1 [place] in each nostril two times a day. Dispense: 30 mL; Refill: 1 - fluticasone (FLONASE) 50 mcg/actuation nasal spray; Use 2 Sprays in each nostril two times a day. Rinse mouth after use. Dispense: 1 Each; Refill: 1 3. Pharyngitis, unspecified etiology - LIDOCAINE VISCOUS 2 % solution; Take 15 mL by mouth three times a day as needed. Dispense: 100 mL; Refill: 0 Encouraged supportive care and preventative nasal sprays with seasonal changes and allergies/illness. STOP AFRIN USE, use [id number] BID Oziel Verbalized understanding and agreement with plan of care. Will seek further treatment if any worsening of symptoms occurs. Kristin Rosales APRN [facility] 12-15-2022 Telephone encounter Note Left a detail message for patient though Voice mail. Pt was advise to call back for further. Please relay the message. [facility] 12-15-2022 Miscellaneous Notes Left a detail message for patient though Voice mail. Pt was advise to call back for further. Please relay the message. Instruct the patient that it would be beneficial to find a PCP in the area in which she lives. She can rack up a hefty bill with continuous ED visits. FYI. S: Patient spoke with [facility] nurse regarding cough worsening, URI B: Onset of symptoms/concern 3 weeks A: Patient states she has a dry cough. Patient also has a sore throat. Patient denies ear pain, headache, or fever. Patient is eating and drinking as normal. In [place] emergency 2 weeks ago for the same symptoms, diagnosed with URI, and prescribed cough medication; CT scan done. Patient has not taken a COVID test. Patient states the prescribed cough medication is helping. Patient states she cannot come to [facility] for an appointment. R: Patient advised to go back to [place] ER for further testing and treatment. Patient understands care advice. No further needs at this time. Patient instructed to call back with new or worsening symptoms. Reason for Disposition Continuous (nonstop) coughing interferes with work or school and no improvement using cough treatment per Care Advice Protocols used: [id number] documented in this encounter [facility] 12-14-2022 Telephone encounter Note Instruct the patient that it would be beneficial to find a PCP in the area in which she lives. She can rack up a hefty bill with continuous ED visits. [facility] 12-14-2022 Telephone encounter Note FYI. [facility] 12-14-2022 Note This nurse is perfor angela outreach to see if patient has any availability to come in so this nurse can download continuous glucose monitor reader information for the patient's PCP. The patient started Trulicity a month ago, so this nurse is attempting to obtain a record of recent blood sugar readings. This nurse will follow up with patient regarding this and will schedule an appointment with patient once patient is available. Lab Results Component Value Date HGBA1C 7.7 (A) 11/18/2022 HGBA1C 7.02% 09/10/2022 HGBA1C 7.3 (A) 06/09/2022 Thank you, Feel free to reach out if you need anything. Sincerely, Nikole Magaña Ambulatory vehicle sales professional [phone] [facility] [place] [address] [facility] 12-14-2022 Telephone encounter Note S: Patient spoke with [facility] nurse regarding cough worsening, URI B: Onset of symptoms/concern 3 weeks A: Patient states she has a dry cough. Patient also has a sore throat. Patient denies ear pain, headache, or fever. Patient is eating and drinking as normal. In [place] emergency 2 weeks ago for the same symptoms, diagnosed with URI, and prescribed cough medication; CT scan done. Patient has not taken a COVID test. Patient states the prescribed cough medication is helping. Patient states she cannot come to [facility] for an appointment. R: Patient advised to go back to [place] ER for further testing and treatment. Patient understands care advice. No further needs at this time. Patient instructed to call back with new or worsening symptoms. Reason for Disposition Continuous (nonstop) coughing interferes with work or school and no improvement using cough treatment per Care Advice Protocols used: [id number] [facility] 12-10-2022 Telephone encounter Note Name of caller: Oziel Roper Contact phone number: [phone] Relationship to Patient: patient Provider: Dr. Alberts Practice: [facility] Chief Complaint/Reason for Call: Caller states her medications have been sent to various pharmacies and she would like new scripts sent to pharmacy on file for SUMAtriptan (Imitrex) 50 MG tablet, dulaglutide (Trulicity) 3 MG/0.5ML solution pen-injector and Continuous Blood Gluc Sensor. Please advise. Thank you Best time of day caller can be reached: Any Patient advised that office/PCP has 24-48 business hours to return their call: Yes [facility] 12-10-2022 Miscellaneous Notes Name of caller: Oziel Roper Contact phone number: [phone] Relationship to Patient: patient Provider: Dr. Alberts Practice: [facility] Chief Complaint/Reason for Call: Caller states her medications have been sent to various pharmacies and she would like new scripts sent to pharmacy on file for SUMAtriptan (Imitrex) 50 MG tablet, dulaglutide (Trulicity) 3 MG/0.5ML solution pen-injector and Continuous Blood Gluc Sensor. Please advise. Thank you Best time of day caller can be reached: Any Patient advised that office/PCP has 24-48 business hours to return their call: Yes documented in this encounter [facility] 12-03-2022 Note HNO ID: [id number] Author: David Powers APRN.TUBE SIZER OPERATOR Service: ? Author Type: Nurse Practitioner Type: Progress Notes Filed: 12/03/2022 2:19 PM Note Text: Subjective HPI Nontoxic female presents urgent care chief complaint abdominal pain vomiting. Duration of symptoms 3 days. Associated symptoms listed above. Has had nasal congestion and cough but this has been present for 2 weeks. Nausea vomiting abdominal pain is new. No OTC medications used. Approximately 20 episodes of vomiting yesterday. 2 episodes of vomiting today. Increasing right upper abdominal pain. Denies chance of is not breast-feeding. Past medical history prescription medication use allergies reviewed. .Patient presents with: Cough: Congestion x2 weeks, vomiting x 3 days PAST MEDICAL HISTORY Diagnosis Date Asthma Depression Diabetes mellitus (HCC) Generalized anxiety disorder History reviewed. No pertinent surgical history. ALLERGIES Norethindrone Ac-Eth Estradiol, Norgestimate-Ethinyl Estradiol, Prednisone, and Zyrtec [Cetirizine] MEDICATIONS JARDIANCE 10 mg tablet Take 1 tablet by mouth every afternoon. SUMAtriptan (IMITREX) 50 mg tablet TAKE 1 TABLET BY MOUTH NEEDED FOR MIGRAINE HEADACHE; MAY REPEAT AFTER 2 HOURS cephALEXin (KEFLEX) 500 mg capsule Take 1 capsule by mouth every 12 (twelve) hours. [employer] KIERRA [address] (PROTONIX) 40 mg tablet Take 40 mg by mouth twice daily. glycopyrrolate (ROBINUL) 1 mg tablet Take 2 mg by mouth twice daily. TRULICITY 1.5 mg/0.5 mL pen injector Inject 3 mg subcutaneously one time a week. mupirocin (BACTROBAN) 2 % ointment Use 2 g in the nose. (Patient not taking: Reported on 12/03/2022) metformin HCl (METFORMIN ORAL) Take 500 mg by mouth twice daily. FAMILY HISTORY Problem Relation Age of Onset Diabetes Mother Cervical Cancer Maternal Grandmother did not require hysterectomy Lung Cancer Maternal Grandmother Multiple Sclerosis Maternal Grandmother Breast Cancer Maternal great-grandmother diagnosed >50y Social History Tobacco Use Smoking status: Never Smokeless tobacco: Never Substance Use Topics Alcohol use: Never Drug use: Never BP 112/78 Pulse 92 Temp 37 ?C (98.6 ?F) Resp 18 Wt 114.3 kg (252 lb) LMP 05/13/2022 (Approximate) SpO2 96% BMI 40.67 kg/m? Review of Systems Constitutional: Negative for chills, fever and malaise/fatigue. HENT: Positive for congestion. Negative for ear discharge, ear pain, sinus pain and sore throat. Eyes: Negative for blurred vision, pain, discharge and redness. Respiratory: Positive for cough. Negative for hemoptysis, sputum production, shortness of breath, wheezing and stridor. Cardiovascular: Negative for chest pain. Gastrointestinal: Positive for abdominal pain, nausea and vomiting. Negative for diarrhea. Musculoskeletal: Negative for myalgias. Skin: Negative for itching and rash. Neurological: Negative for dizziness and headaches. Objective Physical Exam Constitutional: General: She is not in acute distress. Appearance: She is not toxic-appearing. HENT: Head: Normocephalic. Nose: Congestion present. Eyes: Pupils: Pupils are equal, round, and reactive to light. Cardiovascular: Rate and Rhythm: Normal rate. Pulmonary: Effort: Pulmonary effort is normal. No respiratory distress. Breath sounds: No wheezing. Abdominal: Tenderness: There is abdominal tenderness. There is no guarding or rebound. Musculoskeletal: Cervical back: Normal range of motion. Skin: General: Skin is warm and dry. Neurological: General: No focal deficit present. Mental Status: She is alert. ASSESSMENT/PLAN: 1. Right upper quadrant abdominal pain - ICD9: 789.01, ICD10: R10.11 Diagnosed with right upper abdominal pain. 8 out of 10 with palpation. Concerned about possible acute abdomen. Referred to ED. Will be seen at [facility]. David Powers APRN.[facility] 12-03-2022 History of Presen t illness Narrative Subjective HPI Nontoxic female presents urgent care chief complaint abdominal pain vomiting. Duration of symptoms 3 days. Associated symptoms listed above. Has had nasal congestion and cough but this has been present for 2 weeks. Nausea vomiting abdominal pain is new. No OTC medications used. Approximately 20 episodes of vomiting yesterday. 2 episodes of vomiting today. Increasing right upper abdominal pain. Denies chance of is not breast-feeding. Past medical history prescription medication use allergies reviewed. .Patient presents with: Cough: Congestion x2 weeks, vomiting x 3 days PAST MEDICAL HISTORY Diagnosis Date Asthma Depression Diabetes mellitus (HCC) Generalized anxiety disorder History reviewed. No pertinent surgical history. ALLERGIES Norethindrone Ac-Eth Estradiol, Norgestimate-Ethinyl Estradiol, Prednisone, and Zyrtec [Cetirizine] MEDICATIONS JARDIANCE 10 mg tablet Take 1 tablet by mouth every afternoon. SUMAtriptan (IMITREX) 50 mg tablet TAKE 1 TABLET BY MOUTH NEEDED FOR MIGRAINE HEADACHE; MAY REPEAT AFTER 2 HOURS cephALEXin (KEFLEX) 500 mg capsule Take 1 capsule by mouth every 12 (twelve) hours. FREESTYLE KIERRA [address] (PROTONIX) 40 mg tablet Take 40 mg by mouth twice daily. glycopyrrolate (ROBINUL) 1 mg tablet Take 2 mg by mouth twice daily. TRULICITY 1.5 mg/0.5 mL pen injector Inject 3 mg subcutaneously one time a week. mupirocin (BACTROBAN) 2 % ointment Use 2 g in the nose. (Patient not taking: Reported on 12/03/2022) metformin HCl (METFORMIN ORAL) Take 500 mg by mouth twice daily. FAMILY HISTORY Problem Relation Age of Onset Diabetes Mother Cervical Cancer Maternal Grandmother did not require hysterectomy Lung Cancer Maternal Grandmother Multiple Sclerosis Maternal Grandmother Breast Cancer Maternal great-grandmother diagnosed >50y Social History Tobacco Use Smoking status: Never Smokeless tobacco: Never Substance Use Topics Alcohol use: Never Drug use: Never BP 112/78 Pulse 92 Temp 37 C (98.6 F) Resp 18 Wt 114.3 kg (252 lb) LMP 05/13/2022 (Approximate) SpO2 96% BMI 40.67 kg/m Review of Systems Constitutional: Negative for chills, fever and malaise/fatigue. HENT: Positive for congestion. Negative for ear discharge, ear pain, sinus pain and sore throat. Eyes: Negative for blurred vision, pain, discharge and redness. Respiratory: Positive for cough. Negative for hemoptysis, sputum production, shortness of breath, wheezing and stridor. Cardiovascular: Negative for chest pain. Gastrointestinal: Positive for abdominal pain, nausea and vomiting. Negative for diarrhea. Musculoskeletal: Negative for myalgias. Skin: Negative for itching and rash. Neurological: Negative for dizziness and headaches. Objective Physical Exam Constitutional: General: She is not in acute distress. Appearance: She is not toxic-appearing. HENT: Head: Normocephalic. Nose: Congestion present. Eyes: Pupils: Pupils are equal, round, and reactive to light. Cardiovascular: Rate and Rhythm: Normal rate. Pulmonary: Effort: Pulmonary effort is normal. No respiratory distress. Breath sounds: No wheezing. Abdominal: Tenderness: There is abdominal tenderness. There is no guarding or rebound. Musculoskeletal: Cervical back: Normal range of motion. Skin: General: Skin is warm and dry. Neurological: General: No focal deficit present. Mental Status: She is alert. ASSESSMENT/PLAN: 1. Right upper quadrant abdominal pain - ICD9: 789.01, ICD10: R10.11 Diagnosed with right upper abdominal pain. 8 out of 10 with palpation. Concerned about possible acute abdomen. Referred to ED. Will be seen at [facility]. David Powers APRN.TUBE SIZER OPERATOR documented in this encounter [facility] 12-03-2022 Telephone encounter Note Noted. [facility] 12-03-2022 Miscellaneous Notes Noted. FYI. S: Patient spoke with [facility] nurse regarding cough and vomiting. B: Onset of symptoms/concern a few weeks ago - vomiting started recently. A: Pt c/o cough which is productive at times of yellowish phlegm; vomiting at times even when not coughing; congestion; sore throat. Unsure if she has a fever - does not have thermometer. Denies chest pain, ear pain, loss of taste. Pt does have some SOB at times - pt does have asthma and she is using her inhalers more now. Has not tested for Covid - advised pt to test for Covid. Pt is unsure if vomiting is due to new medication - Jardience or from antibiotic that she is on for UTI - doesn't know the name of the Rx. Offered appt for tomorrow but pt states she is going to now near her - she lives in [place]. R: Will send message to office to let them know pt is going to today. Pt to call back if any further ques or concerns. Reason for Disposition Wheezing is present SEVERE coughing spells (e.g., whooping sound after coughing, vomiting after coughing) Answer Assessment - Initial Assessment Questions 1. ONSET: When did the cough begin? A few weeks ago 2. SEVERITY: How bad is the cough today? Coughing spells all day 3. SPUTUM: Describe the color of your sputum (none, dry cough; clear, white, yellow, green) Yellow phlegm 4. HEMOPTYSIS: Are you coughing up any blood? If so ask: How much? (flecks, streaks, tablespoons, etc.) No 5. DIFFICULTY BREATHING: Are you having difficulty breathing? If Yes, ask: How bad is it? (e.g., mild, moderate, severe) - MILD: No SOB at rest, mild SOB with walking, speaks normally in sentences, can lie down, no retractions, pulse < 100. - MODERATE: SOB at rest, SOB with minimal exertion and prefers to sit, cannot lie down flat, speaks in phrases, mild retractions, audible wheezing, pulse 100-120. - SEVERE: Very SOB at rest, speaks in single words, struggling to breathe, sitting hunched forward, retractions, pulse > 120 Asthma - SOB at times; using inhaler a lot more 6. FEVER: Do you have a fever? If Yes, ask: What is your temperature, how was it measured, and when did it start? Unsure 7. CARDIAC HISTORY: Do you have any history of heart disease? (e.g., heart attack, congestive heart failure) No 8. LUNG HISTORY: Do you have any history of lung disease? (e.g., pulmonary embolus, asthma, emphysema) asthma 9. PE RISK FACTORS: Do you have a history of blood clots? (or: recent major surgery, recent prolonged travel, bedridden) No 10. OTHER SYMPTOMS: Do you have any other symptoms? (e.g., runny nose, wheezing, chest pain) Stuffy and runny nose at times; sore throat; slight nausea 11. : Is there any chance you are ? When was your last menstrual period? No 12. TRAVEL: Have you traveled out of the country in the last month? (e.g., travel history, exposures) No Protocols used: [id number] documented in this encounter [facility] 12-03-2022 Telephone encounter Note FYI. [facility] 12-03-2022 Telephone encounter Note S: Patient spoke with [facility] nurse regarding cough and vomiting. B: Onset of symptoms/concern a few weeks ago - vomiting started recently. A: Pt c/o cough which is productive at times of yellowish phlegm; vomiting at times even when not coughing; congestion; sore throat. Unsure if she has a fever - does not have thermometer. Denies chest pain, ear pain, loss of taste. Pt does have some SOB at times - pt does have asthma and she is using her inhalers more now. Has not tested for Covid - advised pt to test for Covid. Pt is unsure if vomiting is due to new medication - Jardience or from antibiotic that she is on for UTI - doesn't know the name of the Rx. Offered appt for tomorrow but pt states she is going to now near her - she lives in [place]. R: Will send message to office to let them know pt is going to today. Pt to call back if any further ques or concerns. Reason for Disposition Wheezing is present SEVERE coughing spells (e.g., whooping sound after coughing, vomiting after coughing) Answer Assessment - Initial Assessment Questions 1. ONSET: When did the cough begin? A few weeks ago 2. SEVERITY: How bad is the cough today? Coughing spells all day 3. SPUTUM: Describe the color of your sputum (none, dry cough; clear, white, yellow, green) Yellow phlegm 4. HEMOPTYSIS: Are you coughing up any blood? If so ask: How much? (flecks, streaks, tablespoons, etc.) No 5. DIFFICULTY BREATHING: Are you having difficulty breathing? If Yes, ask: How bad is it? (e.g., mild, moderate, severe) - MILD: No SOB at rest, mild SOB with walking, speaks normally in sentences, can lie down, no retractions, pulse < 100. - MODERATE: SOB at rest, SOB with minimal exertion and prefers to sit, cannot lie down flat, speaks in phrases, mild retractions, audible wheezing, pulse 100-120. - SEVERE: Very SOB at rest, speaks in single words, struggling to breathe, sitting hunched forward, retractions, pulse > 120 Asthma - SOB at times; using inhaler a lot more 6. FEVER: Do you have a fever? If Yes, ask: What is your temperature, how was it measured, and when did it start? Unsure 7. CARDIAC HISTORY: Do you have any history of heart disease? (e.g., heart attack, congestive heart failure) No 8. LUNG HISTORY: Do you have any history of lung disease? (e.g., pulmonary embolus, asthma, emphysema) asthma 9. PE RISK FACTORS: Do you have a history of blood clots? (or: recent major surgery, recent prolonged travel, bedridden) No 10. OTHER SYMPTOMS: Do you have any other symptoms? (e.g., runny nose, wheezing, chest pain) Stuffy and runny nose at times; sore throat; slight nausea 11. : Is there any chance you are ? When was your last menstrual period? No 12. TRAVEL: Have you traveled out of the country in the last month? (e.g., travel history, exposures) No Protocols used: [id number] [facility] 11-25-2022 Evaluation + Plan note Associated Problem(s): AZAM (obstructive sleep apnea) Needs an updated sleep study. May be contributing to increased migraine headaches. [facility] 11-25-2022 Miscellaneous Notes Associated Problem(s): AZAM (obstructive sleep apnea) Needs an updated sleep study. May be contributing to increased migraine headaches. Associated Problem(s): Migraine without aura and without status migrainosus, not intractable Added imitrex 50 mg to trial for her headaches. Headache diary and watching if any food triggers. Associated Problem(s): Type 2 diabetes mellitus without complication, without long-term current use of insulin ([facility] ([facility]) a1c increased to 7.7%. Multifactorial. Reviewed the download of her CGM. She has had some increased blood sugars more after lunch time. Patient not paying attention to her diet or exercise. Tooth infection also on-going and delayed with getting into seeing her dentist. Appt scheduled. - Continue trulicity 3 mg weekly; add Jardiance 10 mg daily - Continue to use the CGM to montior blood sugars. Advised to tailor her choices by being aware of what it does for her blood sugars. documented in this encounter [facility] 11-25-2022 Evaluation + Plan note Associated Problem(s): Migraine without aura and without status migrainosus, not intractable Added imitrex 50 mg to trial for her headaches. Headache diary and watching if any food triggers. [facility] 11-25-2022 Evaluation + Plan note Associated Problem(s): Type 2 diabetes mellitus without complication, without long-term current use of insulin (CMS/HCC) ([facility]) a1c increased to 7.7%. Multifactorial. Reviewed the download of her CGM. She has had some increased blood sugars more after lunch time. Patient not paying attention to her diet or exercise. Tooth infection also on-going and delayed with getting into seeing her dentist. Appt scheduled. - Continue trulicity 3 mg weekly; add Jardiance 10 mg daily - Continue to use the CGM to montior blood sugars. Advised to tailor her choices by being aware of what it does for her blood sugars. [facility] 11-18-2022 History of Presen t illness Narrative Images from the original note were not included. Fifi Alberts M.D. [facility] [address] [facility] [address] Dept: [phone] Loc: [phone] Assessments/Plan: 1. Type 2 diabetes mellitus with hyperglycemia, without long-term current use of insulin (CMS/HCC) ([facility]) Assessment & Plan: a1c increased to 7.7%. Multifactorial. Reviewed the download of her CGM. She has had some increased blood sugars more after lunch time. Patient not paying attention to her diet or exercise. Tooth infection also on-going and delayed with getting into seeing her dentist. Appt scheduled. - Continue trulicity 3 mg weekly; add Jardiance 10 mg daily - Continue to use the CGM to montior blood sugars. Advised to tailor her choices by being aware of what it does for her blood sugars. Orders: - AMB POC HEMOGLOBIN A1C - empagliflozin (Jardiance) 10 MG; Take 1 tablet (10 mg) by mouth daily., Starting Wed11/18/2022, Normal 2. Migraine without aura and without status migrainosus, not intractable Assessment & Plan: Added imitrex 50 mg to trial for her headaches. Headache diary and watching if any food triggers. Orders: - SUMAtriptan (Imitrex) 50 MG tablet; Take 1 tablet (50 mg) by mouth Once as needed for migraine. May repeat after 2 hours., Starting Wed11/18/2022, Until Karli 11/18/2023 at 2359, Normal 3. AZAM (obstructive sleep apnea) Assessment & Plan: Needs an updated sleep study. May be contributing to increased migraine headaches. Orders: - [facility] Sleep Medicine Follow up in about 3 months (around 02/17/2023) for f/u DMII. Reason for Appointment: Oziel Roper is a 22 y.o. female who presents today for: Chief Complaint Patient presents with Follow-up wisdom teeth infection, hyperglycemia, follow up after Antibiotic therapy. Subjective Diabetes She presents for her follow-up diabetic visit. She has type 2 diabetes mellitus. No MedicAlert identification noted. The initial diagnosis of diabetes was made 4 years ago. Her disease course has been improving. Hypoglycemia symptoms include dizziness, headaches, hunger, mood changes, nervousness/anxiousness, pallor, sleepiness and tremors (and changes in vision when blood sugars are low). Pertinent negatives for hypoglycemia include no confusion, seizures, speech difficulty or sweats. Associated symptoms include polydipsia and polyphagia. Pertinent negatives for diabetes include no foot ulcerations and no weight loss (more of a weight gain). Hypoglycemia complications include nocturnal hypoglycemia and required glucagon injection. Pertinent negatives for hypoglycemia complications include no blackouts, no hospitalization and no required assistance. Symptoms are stable. There are no diabetic complications. Risk factors for coronary artery disease include diabetes mellitus, obesity and family history. Current diabetic treatment includes oral agent (monotherapy) (Trulicity). She is compliant with treatment all of the time. Diabetic current diet: No particular diet. She participates in exercise intermittently. An YAYA inhibitor/angiotensin II receptor ronda is not being taken. She does not see a ben day artist.Eye exam is current. Review of Systems Constitutional: Negative for weight loss (more of a weight gain). Endocrine: Positive for polydipsia and polyphagia. Skin: Positive for pallor. Neurological: Positive for dizziness, tremors (and changes in vision when blood sugars are low) and headaches. Negative for seizures and speech difficulty. Psychiatric/Behavioral: Negative for confusion. The patient is nervous/anxious. Current Outpatient Medications on File Prior to Visit Medication Sig Dispense Refill albuterol 108 (90 Base) MCG/ACT inhaler Inhale 2 puffs every 6 hours as needed for wheezing or shortness of breath. 18 g 3 aluminum chloride (Drysol) 20 % external solution 1 application at bedtime Strength: 20 % 60 mL 3 Blood Glucose Monitoring Suppl device Use to check blood sugars 1x/daily E11.65 1 Units 0 Continuous Blood Gluc Load Out Person (Vidimaxyle Kierra 2 Leon) device 1 Units 4 times daily (before meals and nightly). 1 each 0 dulaglutide (Trulicity) 3 MG/0.5ML solution pen-injector Inject 3 mg under the skin 1 (one) time per week. 4 each 3 glucose blood (OneTouch Ultra) test strip 1 each by Other route daily. 100 each 3 glycopyrrolate (Robinul) 2 MG tablet Take 1 tablet (2 mg) by mouth daily. 90 tablet 3 mupirocin (Bactroban) 2 % ointment Apply topically 2 times daily. 22 g 2 pantoprazole (ProtoNix) 40 MG EC tablet take 1 tablet by mouth before breakfast 90 tablet 1 No current facility-administered medications on file prior to visit. Allergies Allergen Reactions Prednisone Other and Anaphylaxis Cetirizine Swelling Metformin Nausea And Vomiting Microgestin Fe 1-20 [Norethin Yaya-Eth Estrad-Fe] Unknown and Other Norgestimate-Eth Estradiol Angioedema Other Other reaction(s): Anaphylaxis Objective Vitals: 11/18/22 1455 BP: 109/78 BP Location: Right arm Patient Position: Sitting BP Cuff Size: Large adult Pulse: 92 Resp: 16 Temp: 37.2 C (98.9 F) SpO2: 91% Weight: 264 lb 6.4 oz (120 kg) Height: 5' 6 (1.676 m) Physical Exam Vitals reviewed. Constitutional: General: She is not in acute distress. Cardiovascular: Rate and Rhythm: Normal rate and regular rhythm. Pulses: Normal pulses. Heart sounds: Normal heart sounds. No murmur heard. No friction rub. No gallop. Pulmonary: Effort: Pulmonary effort is normal. Breath sounds: Normal breath sounds. No wheezing, rhonchi or rales. Neurological: General: No focal deficit present. Mental Status: She is oriented to person, place, and time. Sensory: Sensation is intact. Motor: Motor function is intact. Coordination: Coordination is intact. Lab Results Component Value Date NA 137 01/18/2022 K 4.0 01/18/2022 CL 106 01/18/2022 CO2 22 01/18/2022 BUN 12 01/18/2022 CREATININE 0.79 01/18/2022 GLUCOSE NEGATIVE 02/13/2022 CALCIUM 9.4 01/18/2022 PROT 7.4 11/08/2021 BILITOT 0.5 11/08/2021 ALKPHOS 90 11/08/2021 AST 19 11/08/2021 Lab Results Component Value Date WBC 0-5 02/13/2022 HGB 12.5 01/18/2022 HCT 39.9 01/18/2022 MCV 73.4 (L) 01/18/2022 PLT 353 01/18/2022 Lab Results Component Value Date CHOL 158 11/08/2021 CHOL 159 05/23/2021 CHOL 166 05/28/2020 Lab Results Component Value Date TRIG 134 11/08/2021 TRIG 146 05/23/2021 TRIG 157 (A) 05/28/2020 Lab Results Component Value Date HDL 40 11/08/2021 HDL 32 (L) 05/23/2021 HDL 39 (L) 05/28/2020 No results found for: LDLCALC No components found for: LABA1C Lab Results Component Value Date TSH 1.678 05/23/2021 Medication indications, directions, and side effects were discussed. The following were reviewed: [] Laboratory Results [] Imaging Results [] Images [] Clinic Notes [] D/C Summary [] ED summary (Please note: Portions of this note were completed with a voice recognition program.Efforts were made to edit the dictations but occasionally words and phrases are mis-transcribed.) documented in this encounter [facility] 10-30-2022 Emergency department Note This Rn went over discharge paperwork with the patient. Patient denies having any questions at this time. Ambulated with steady gait, A&Ox4. Tiki Matias RN 10/30/22 0356 [facility] 10-30-2022 Emergency department Note This Rn went over discharge paperwork with the patient. Patient denies having any questions at this time. Ambulated with steady gait, A&Ox4. Tiki Matias RN 10/30/22 0356 AMADO Morris at the bedside. Tiki Matias RN 10/30/22 0329 Bed: 36 Expected date: 10/30/22 Expected time: Means of arrival: Comments: triage Yolette Dunn RN 10/30/22 0310 documented in this encounter [facility] 10-30-2022 Hospital Discharg e instructions AMADO Ramires - 10/30/2022 3:30 AM EDT Please follow-up with the dental clinic for further evaluation of your dental pain. Information is listed below. Please take antibiotic, Augmentin, as prescribed and take full course. Continue taking Tylenol/ibuprofen as needed for symptomatic relief of your dental pain. Return to the ED with any new or worsening symptoms. The following attachments cannot be sent through Care Everywhere.Dental Pain Discharge Instructions ([place])documented in this encounter [facility] 10-30-2022 Emergency department Note AMADO Morris at the bedside. Tiki Matias RN 10/30/22 0329 [facility] 10-29-2022 Emergency department Note Bed: 36 Expected date: 10/30/22 Expected time: Means of arrival: Comments: triage Yolette Dunn RN 10/30/22309 [facility] 10-19-2022 Miscellaneous Notes Aware of results and recommendations. Still having s/s so instructions for clean catch given. Lisa Mcfarland RN Urine results suggest contamination. If patient is still asymptomatic, she can repeat the culture with clean catch technique. Orders filed. Thanks! Cassandra Wylie PA-C documented in this encounter [facility] 09-21-2022 Note The patient came int o office to see this nurse for Freestyle Kierra 2 education. Patient was instructed on the following: Instructed patient on set-up and usage of [place] FreeStyle Kierra Glucose Monitor using the manufactures instruction included: Rationale for CGM use Choosing sites suitable for application of sensor and operation of insertion device Preparation and application of sensor Starting a new sensor and warm-up time Accessing Glucose Data Reviewing History Display screen overview: sensor glucose reading, trend arrows, trend graph and alert messages Hi/Lo Readings Options for device upload, data review, and data sharing: Freestyle Kierra Link When to verify readings with a blood glucose monitor, using the arrows / know the Difference between readings with kierra and glucometer How to remove sensor/Disposal of Sensor disc Tips to make sensor stay on What to do if sensor falls off: had the patient keep the box with the lot number in case needed for new sensor. Changing sensor every 14 days Other topics taught: OK to shower/bathe, avoid hot tubs/saunas, remove sensor/transmitter for CT scans/MRIs, do not put system components through airport x-ray or full body scanners, OK to take system through airport metal detectors and hand-wanding, options for additional adhesion and do not administer insulin less than 2 inches from sensor sites Patient in office today able to successfully download [employer] Kierra 2 ATUL. A sample sensor to Right upper, posterior arm was applied, patient is aware that the sensor is expected to last for 14 days, then will need to be removed and new sensor replaced to new site. Patient tolerated well, able to scan to start sensor. Aware of the 60 minute warm up period to begin scanning at that time. The patient is going to come in again in two weeks for self application education. The patient also plans on getting a smart phone upgrade so that can use this for scanner instead of the kierra one. Thank you, Feel free to reach out if you need anything. Sincerely, Nikole Magaña Ambulatory vehicle sales professional [phone] [facility] [address] [place] [address] [place] [address] [facility] 09-17-2022 Telephone encounter Note Pt was informed. [facility] 09-17-2022 Miscellaneous Notes Pt was informed. Name of caller: Oziel Contact phone number: [phone] Relationship to Patient: patient Provider: Aristeo Practice: [facility] Chief Complaint/Reason for Call: please send scripts from 09/17 to [facility]. I did update the pharmacy. Best time of day caller can be reached: any Patient advised that office/PCP has 24-48 business hours to return their call: No documented in this encounter [facility] 09-17-2022 Telephone encounter Note Name of caller: Oziel Contact phone number: [phone] Relationship to Patient: patient Provider: Aristeo Practice: [facility] Chief Complaint/Reason for Call: please send scripts from 09/17 to [facility]. I did update the pharmacy. Best time of day caller can be reached: any Patient advised that office/PCP has 24-48 business hours to return their call: No [facility] 09-17-2022 History of Presen t illness Narrative Patient brought in sensor which was a freestyle kierra 3 and the patient's smart phone ended up not being compatible with freestyle kierra 2 or 3 sensors. This nurse suggested that patient sign up for a phone through medicaid. This nurse started the process. Patient stated that just wanted to get a freestyle kierra 2 sensor and reader until upgrading phone next month. This nurse pended order for the freestyle 2 reader and sensor for the physician. This nurse will help the patient with application once the patient receives the device from the pharmacy. Thank you, Feel free to reach out if you need anything. Sincerely, Nikole Magaña Ambulatory vehicle sales professional [phone] [place] [address] Will insurance cover since she just had the kierra 3 ordered? documented in this encounter [facility] 09-14-2022 Telephone encounter Note Note. [facility] 09-14-2022 Miscellaneous Notes Note. Name of caller: Oziel Contact phone number: [phone] Relationship to Patient: patient Provider: Dr Alberts Practice: [facility] Chief Complaint/Reason for Call: FYI only: Pt called to update pharmacy information to [facility] on [facility]. No other questions/concerns. Best time of day caller can be reached: any Patient advised that office/PCP has 24-48 business hours to return their call: No documented in this encounter [facility] 09-14-2022 Telephone encounter Note Name of caller: Wellpinit Contact phone number: [phone] Relationship to Patient: patient Provider: Dr Alberts Practice: [facility] Chief Complaint/Reason for Call: FYI only: Pt called to update pharmacy information to [facility]. No other questions/concerns. Best time of day caller can be reached: any Patient advised that office/PCP has 24-48 business hours to return their call: No [facility] 09-10-2022 Evaluation + Plan note Associated Problem(s): Class 3 severe obesity due to excess calories with serious comorbidity and body mass index (BMI) of 40.0 to 44.9 in adult (HCC) See above. [facility] 09-10-2022 Miscellaneous Notes Associated Problem(s): Class 3 severe obesity due to excess calories with serious comorbidity and body mass index (BMI) of 40.0 to 44.9 in adult (HCC) See above. Associated Problem(s): Type 2 diabetes mellitus without complication, without long-term current use of insulin ([facility] ([facility]) a1c is 7.0%. Controlled. Goal is <7%. -Patient metformin discontinued due to GI side effects. -Advised to continue with the Trulicity 3 mg weekly. She has reported some low blood sugars toward her evenings. Not skipping meals. - Advised on increasing protein. Reviewed her caloric goals- macronutrient's goal with increased protein, low carbohydrate and fat discussed. She in unable to follow up in weight management. Review her weight and a1c at her follow up visit. If weight is not improving then may consider switching to ozempic or mounjaro injection. - Kierra 3 sensor also ordered and advised to return to have nurse assist with placement and function. documented in this encounter [facility] 09-10-2022 Evaluation + Plan note Associated Problem(s): Type 2 diabetes mellitus without complication, without long-term current use of insulin ([facility] ([facility]) a1c is 7.0%. Controlled. Goal is <7%. -Patient metformin discontinued due to GI side effects. -Advised to continue with the Trulicity 3 mg weekly. She has reported some low blood sugars toward her evenings. Not skipping meals. - Advised on increasing protein. Reviewed her caloric goals- macronutrient's goal with increased protein, low carbohydrate and fat discussed. She in unable to follow up in weight management. Review her weight and a1c at her follow up visit. If weight is not improving then may consider switching to ozempic or mounjaro injection. - Kierra 3 sensor also ordered and advised to return to have nurse assist with placement and function. [facility] 09-10-2022 History of Presen t illness Narrative Images from the original note were not included. Fifi Alberts M.D. FAMILY MEDICINE [facility] [address] [place] [address] Dept: [phone] Loc: [phone] Assessments/Plan: 1. Type 2 diabetes mellitus without complication, without long-term current use of insulin ([facility] ([facility]) Assessment & Plan: a1c is 7.0%. Controlled. Goal is <7%. -Patient metformin discontinued due to GI side effects. -Advised to continue with the Trulicity 3 mg weekly. She has reported some low blood sugars toward her evenings. Not skipping meals. - Advised on increasing protein. Reviewed her caloric goals- macronutrient's goal with increased protein, low carbohydrate and fat discussed. She in unable to follow up in weight management. Review her weight and a1c at her follow up visit. If weight is not improving then may consider switching to ozempic or mounjaro injection. - Kierra 3 sensor also ordered and advised to return to have nurse assist with placement and function. Orders: - AMB POC HEMOGLOBIN A1C - Continuous Blood Gluc Sensor (FreeStyle Kierra 3 Sensor) misc; 3 times daily., Starting Karli 09/10/2022, Normal 2. Class 3 severe obesity due to excess calories with serious comorbidity and body mass index (BMI) of 40.0 to 44.9 in adult ([facility]) Assessment & Plan: See above. Follow up in about 3 months (around 12/11/2022) for f/u DM; follow up with nurse coordinator for DM and logs. Reason for Appointment: Oziel Roper is a 22 y.o. female who presents today for: Chief Complaint Patient presents with Diabetes Follow up in about 3 months (around 09/08/2022) for f/u Diabetes. Subjective Diabetes She presents for her follow-up diabetic visit. She has type 2 diabetes mellitus. No MedicAlert identification noted. The initial diagnosis of diabetes was made 4 years ago. Her disease course has been improving. Hypoglycemia symptoms include dizziness, headaches, hunger, mood changes, nervousness/anxiousness, pallor, sleepiness and tremors (and changes in vision when blood sugars are low). Pertinent negatives for hypoglycemia include no confusion, seizures, speech difficulty or sweats. Associated symptoms include fatigue, polydipsia, polyuria and visual change. Pertinent negatives for diabetes include no blurred vision, no chest pain, no foot paresthesias, no foot ulcerations, no polyphagia, no weakness and no weight loss. Hypoglycemia complications include nocturnal hypoglycemia and required glucagon injection. Pertinent negatives for hypoglycemia complications include no blackouts, no hospitalization and no required assistance. Symptoms are stable. There are no diabetic complications. Risk factors for coronary artery disease include diabetes mellitus, obesity and family history. Current diabetic treatment includes oral agent (monotherapy) (Trulicity). She is compliant with treatment all of the time. Diabetic current diet: No particular diet. She participates in exercise intermittently. An YAYA inhibitor/angiotensin II receptor ronda is not being taken. She does not see a ben day artist.Eye exam is current. Review of Systems Constitutional: Positive for fatigue. Negative for weight loss. Eyes: Negative for blurred vision. Cardiovascular: Negative for chest pain. Endocrine: Positive for polydipsia and polyuria. Negative for polyphagia. Skin: Positive for pallor. Neurological: Positive for dizziness, tremors (and changes in vision when blood sugars are low) and headaches. Negative for seizures, speech difficulty and weakness. Psychiatric/Behavioral: Negative for confusion. The patient is nervous/anxious. Current Outpatient Medications on File Prior to Visit Medication Sig Dispense Refill albuterol 108 (90 Base) MCG/ACT inhaler Inhale 2 puffs every 6 hours as needed for wheezing or shortness of breath. 18 g 3 aluminum chloride (Drysol) 20 % external solution 1 application at bedtime Strength: 20 % 60 mL 3 Blood Glucose Monitoring Suppl device Use to check blood sugars 1x/daily E11.65 1 Units 0 dulaglutide (Trulicity) 3 MG/0.5ML solution pen-injector Inject 3 mg under the skin 1 (one) time per week. 4 each 3 glucose blood (OneTouch Ultra) test strip 1 each by Other route daily. 100 each 3 glycopyrrolate (Robinul) 2 MG tablet Take 1 tablet (2 mg) by mouth daily. 90 tablet 3 mupirocin (Bactroban) 2 % ointment Apply topically 2 times daily. 22 g 2 pantoprazole (ProtoNix) 40 MG EC tablet TAKE 1 TABLET BY MOUTH EVERY MORNING BEFORE BREAKFAST Strength: 40 mg 90 tablet 1 [DISCONTINUED] metFORMIN (Glucophage) 1000 MG tablet Take 1 tablet (1,000 mg) by mouth in the morning and 1 tablet (1,000 mg) before bedtime. 180 tablet 3 [DISCONTINUED] sulfamethoxazole-trimethoprim (Bactrim DS) 800-160 MG tablet Take 1 tablet by mouth 2 times daily for 10 days. 20 tablet 0 No current facility-administered medications on file prior to visit. Allergies Allergen Reactions Prednisone Other and Anaphylaxis Cetirizine Swelling Metformin Nausea And Vomiting Microgestin Fe 1-20 [Norethin Yaya-Eth Estrad-Fe] Unknown and Other Norgestimate-Eth Estradiol Angioedema Other Other reaction(s): Anaphylaxis Objective Vitals: 09/10/22 09 BP: 125/83 BP Location: Left arm Patient Position: Sitting BP Cuff Size: Large adult Pulse: 85 Resp: 18 Temp: 36.6 C (97.9 F) SpO2: 96% Weight: 262 lb 12.8 oz (119 kg) Height: 5' 6 (1.676 m) Physical Exam Vitals reviewed. Constitutional: General: She is not in acute distress. Cardiovascular: Rate and Rhythm: Normal rate and regular rhythm. Pulses: Normal pulses. Heart sounds: Normal heart sounds. No murmur heard. No friction rub. No gallop. Pulmonary: Effort: Pulmonary effort is normal. Breath sounds: Normal breath sounds. No wheezing, rhonchi or rales. Lab Results Component Value Date NA 137 01/18/2022 K 4.0 01/18/2022 CL 106 01/18/2022 CO2 22 01/18/2022 BUN 12 01/18/2022 CREATININE 0.79 01/18/2022 GLUCOSE NEGATIVE 02/13/2022 CALCIUM 9.4 01/18/2022 PROT 7.4 11/08/2021 BILITOT 0.5 11/08/2021 ALKPHOS 90 11/08/2021 AST 19 11/08/2021 Lab Results Component Value Date WBC 0-5 02/13/2022 HGB 12.5 01/18/2022 HCT 39.9 01/18/2022 MCV 73.4 (L) 01/18/2022 PLT 353 01/18/2022 Lab Results Component Value Date CHOL 158 11/08/2021 CHOL 159 05/23/2021 CHOL 166 05/28/2020 Lab Results Component Value Date TRIG 134 11/08/2021 TRIG 146 05/23/2021 TRIG 157 (A) 05/28/2020 Lab Results Component Value Date HDL 40 11/08/2021 HDL 32 (L) 05/23/2021 HDL 39 (L) 05/28/2020 No results found for: LDLCALC No components found for: LABA1C Lab Results Component Value Date TSH 1.678 05/23/2021 Medication indications, directions, and side effects were discussed. The following were reviewed: [] Laboratory Results [] Imaging Results [] Images [] Clinic Notes [] D/C Summary [] ED summary (Please note: Portions of this note were completed with a voice recognition program.Efforts were made to edit the dictations but occasionally words and phrases are mis-transcribed.) documented in this encounter [facility] 08-29-2022 Hospital Discharg e instructions Zahida Lion PA-C - 08/29/2022 8:08 PM EDT You were seen today for for evaluation of acute cystitis with hematuria. I am sending you home on Bactrim as well as Pyridium. Please take the Bactrim as prescribed for the next 10 days as you may have the start of an early kidney infection, you can take the Pyridium for the next few days to help with any burning with urination. Please return to the ED if symptoms acutely worsen or you develop any flank pain fevers body aches chills. In the medical field, there is always a level of diagnostic uncertainty, even if this uncertainty is low. For this reason, it is important to immediately return to the emergency department if you have any new symptoms, worsening symptoms, change of symptoms, or if you have any other concerns. We would be happy to re-evaluate you. Otherwise, please take your medications as prescribed and follow-up as recommended. documented in this encounter [facility] 08-29-2022 Emergency department Note Dark red urine noted in specimen cup. Zahida DIAZ notified Radha Wiggins RN 08/29/221934 [facility] 08-29-2022 Emergency department Note Dark red urine noted in specimen cup. Zahida DIAZ notified Radha Wiggins RN 08/29/221934 Emergency Department Encounter [facility] EMERGENCY DEPT Patient: Oziel Roper : 2000 Date of Evaluation: 08/29/2022 ED Provider: KEVIN ALEMAN MD TRIAGE NOTE I saw the patient as the Clinician in Triage and performed a brief history and physical exam, established acuity, and ordered appropriate tests to develop basic plan of care. Patient will be seen by an ATUL, resident and/or my physician partner who will independently evaluate the patient. Please see subsequent provider notes for further details and disposition Brief HPI: In brief, Oziel Roper is a 22 y.o. female that presents for evaluation hematuria. Patient states she woke up today had a sense of urgency had a first morning urination and there was some blood in it. No fever no abdominal pain no flank pain no vaginal discharge or bleeding. She had a sense of urgency later in the day and has had 2 more episodes of hematuria with urination. No fever chills or sweats no abdominal pain or flank pain the rest of the day no nausea or vomiting. LMP couple weeks ago on time and normal. Focused Physical exam: ABDOMEN: Bowel sounds present, soft, nontender, no guarding rebound or rigidity, no palpable masses or aneurysm. BACK: No thoracic lumbar or flank pain. Plan/MDM: Clinically not febrile septic toxic at this time is no clinical signs urinary tract sepsis or pyelonephritis. Benign abdomen no flank pain. She had some cystitis type symptoms, and now hematuria, we will start the work-up by simply getting a urinalysis and a test. Please see subsequent provider note for further details and disposition Comment: Please note this report has been produced using speech recognition software and may contain errors related to that system including errors in grammar, punctuation, and spelling as well as words and phrases that may be inappropriate. If there are any questions or concerns please feel free to contact the dictating provider for clarification KEVIN ALEMAN MD [facility] Kevin Aleman MD 08/29/22 0986 documented in this encounter [facility] 08-29-2022 Physician Emergency department Note Emergency Department Encounter [facility] EMERGENCY DEPT Patient: Oziel Roper : 2000 Date of Evaluation: 08/29/2022 ED Provider: KEVIN ALEMAN MD TRIAGE NOTE I saw the patient as the Clinician in Triage and performed a brief history and physical exam, established acuity, and ordered appropriate tests to develop basic plan of care. Patient will be seen by an ATUL, resident and/or my physician partner who will independently evaluate the patient. Please see subsequent provider notes for further details and disposition Brief HPI: In brief, Oziel Roper is a 22 y.o. female that presents for evaluation hematuria. Patient states she woke up today had a sense of urgency had a first morning urination and there was some blood in it. No fever no abdominal pain no flank pain no vaginal discharge or bleeding. She had a sense of urgency later in the day and has had 2 more episodes of hematuria with urination. No fever chills or sweats no abdominal pain or flank pain the rest of the day no nausea or vomiting. LMP couple weeks ago on time and normal. Focused Physical exam: ABDOMEN: Bowel sounds present, soft, nontender, no guarding rebound or rigidity, no palpable masses or aneurysm. BACK: No thoracic lumbar or flank pain. Plan/MDM: Clinically not febrile septic toxic at this time is no clinical signs urinary tract sepsis or pyelonephritis. Benign abdomen no flank pain. She had some cystitis type symptoms, and now hematuria, we will start the work-up by simply getting a urinalysis and a test. Please see subsequent provider note for further details and disposition Comment: Please note this report has been produced using speech recognition software and may contain errors related to that system including errors in grammar, punctuation, and spelling as well as words and phrases that may be inappropriate. If there are any questions or concerns please feel free to contact the dictating provider for clarification KEVIN ALEMAN MD [employer] Kevin Aleman MD 08/29/22 1748 [facility] [employer] Work Phone: 06-11-2022 Telephone encounter Note Name of caller: Wellpinit Contact phone number: [phone] Relationship to Patient: Patient Provider: Dr. Alberts Practice: [facility] Chief Complaint/Reason for Call: Patient states she was going to have a rx for a glucose meter sent to her pharmacy and it hasn't been sent yet. Please advise. [id number] - [place], [place] - [address] [facility] Best time of day caller can be reached: any Patient advised that office/PCP has 24-48 business hours to return their call: no [facility] 06-11-2022 Miscellaneous Notes Name of caller: Wellpinit Contact phone number: [phone] Relationship to Patient: Patient Provider: Dr. Alberts Practice: [facility] Chief Complaint/Reason for Call: Patient states she was going to have a rx for a glucose meter sent to her pharmacy and it hasn't been sent yet. Please advise. [id number] - [place], [place] - [address] [facility] Best time of day caller can be reached: any Patient advised that office/PCP has 24-48 business hours to return their call: no documented in this encounter [facility] 06-09-2022 Evaluation + Plan note Associated Problem(s): Class 3 severe obesity due to excess calories with serious comorbidity and body mass index (BMI) of 40.0 to 44.9 in adult (HCC) Discussed changes in diet and exercise. Goal set for 10lbs in the next 3 months. [facility] 06-09-2022 Miscellaneous Notes Associated Problem(s): Class 3 severe obesity due to excess calories with serious comorbidity and body mass index (BMI) of 40.0 to 44.9 in adult ([facility]) Discussed changes in diet and exercise. Goal set for 10lbs in the next 3 months. Associated Problem(s): Type 2 diabetes mellitus with hyperglycemia, without long-term current use of insulin ([facility]) ([facility]) a1c 6.7%->7.3%. Increased Trulicity 3 mg weekly. She has some doses of the 1.5 mg which I encouraged her to finish and then start the new dose. Continue the Metformin 1000 mg BID. - follow up in 3 months. documented in this encounter [facility] 06-09-2022 Evaluation + Plan note Associated Problem(s): Type 2 diabetes mellitus with hyperglycemia, without long-term current use of insulin ([facility] ([facility]) a1c 6.7%->7.3%. Increased Trulicity 3 mg weekly. She has some doses of the 1.5 mg which I encouraged her to finish and then start the new dose. Continue the Metformin 1000 mg BID. - follow up in 3 months. [facility] 06-09-2022 History of Presen t illness Narrative Images from the original note were not included. Fifi Alberts M.D. FAMILY MEDICINE [facility] [place] [id number] [place] [address] Dept: [phone] Loc: [phone] Assessments/Plan: 1. Type 2 diabetes mellitus with hyperglycemia, without long-term current use of insulin ([facility]) ([facility]) Assessment & Plan: a1c 6.7%->7.3%. Increased Trulicity 3 mg weekly. She has some doses of the 1.5 mg which I encouraged her to finish and then start the new dose. Continue the Metformin 1000 mg BID. - follow up in 3 months. Orders: - AMB POC HEMOGLOBIN A1C - dulaglutide (Trulicity) 3 MG/0.5ML solution pen-injector; Inject 3 mg under the skin 1 (one) time per week., Starting Wed06/09/2022, Normal 2. Class 3 severe obesity due to excess calories with serious comorbidity and body mass index (BMI) of 40.0 to 44.9 in adult (HCC) Assessment & Plan: Discussed changes in diet and exercise. Goal set for 10lbs in the next 3 months. Follow up in about 3 months (around 09/08/2022) for f/u Diabetes. Reason for Appointment: Oziel Roper is a 22 y.o. female who presents today for: Chief Complaint Patient presents with Diabetes Return for 6 mos chronics/diabetes- est Dr Alberts. Establish Care Subjective Diabetes She presents for her follow-up diabetic visit. She has type 2 diabetes mellitus. The initial diagnosis of diabetes was made 4 years ago. Her disease course has been improving. Hypoglycemia symptoms include tremors (and changes in vision when blood sugars are low). Associated symptoms include polydipsia and polyuria. Pertinent negatives for diabetes include no blurred vision, no chest pain, no foot paresthesias, no polyphagia and no weight loss. Pertinent negatives for hypoglycemia complications include no blackouts and no hospitalization. Symptoms are stable. Pertinent negatives for diabetic complications include no peripheral neuropathy or retinopathy (patient denies any retinopathy. She did have eye exam this year 04/09/22 at [facility]). Risk factors for coronary artery disease include diabetes mellitus, obesity and family history. Current diabetic treatment includes oral agent (monotherapy) (Trulicity). She is compliant with treatment all of the time. Her weight is fluctuating minimally. Diabetic current diet: No particular diet. She has not had a previous visit with a dietitian. She participates in exercise intermittently. An YAYA inhibitor/angiotensin II receptor ronda is not being taken. She does not see a ben day artist.Eye exam is current. Review of Systems Constitutional: Negative for weight loss. Eyes: Negative for blurred vision. Cardiovascular: Negative for chest pain. Endocrine: Positive for polydipsia and polyuria. Negative for polyphagia. Neurological: Positive for tremors (and changes in vision when blood sugars are low). Current Outpatient Medications on File Prior to Visit Medication Sig Dispense Refill albuterol 108 (90 Base) MCG/ACT inhaler Inhale 2 puffs every 6 hours as needed for wheezing or shortness of breath. 18 g 3 aluminum chloride (Drysol) 20 % external solution 1 application at bedtime Strength: 20 % 60 mL 3 dulaglutide (Trulicity) 1.5 MG/0.5ML solution pen-injector Inject 1.5 mg under the skin 1 (one) time per week. 4 pen 11 glucose blood (BFKWuch Ultra) test strip 1 each by Other route daily. 100 each 3 glycopyrrolate (Robinul) 2 MG tablet Take 1 tablet (2 mg) by mouth daily. 90 tablet 3 metFORMIN (Glucophage) 1000 MG tablet Take 1 tablet (1,000 mg) by mouth in the morning and 1 tablet (1,000 mg) before bedtime. 180 tablet 3 Misc Natural Products (BLOOD SUGAR BALANCE PO) mupirocin (Bactroban) 2 % ointment Apply topically 2 times daily. 22 g 2 pantoprazole (ProtoNix) 40 MG EC tablet TAKE 1 TABLET BY MOUTH EVERY MORNING BEFORE BREAKFAST Strength: 40 mg 90 tablet 1 fluticasone (Flonase) 50 MCG/ACT nasal spray SHAKE LIQUID AND USE 1 SPRAY IN EACH NOSTRIL DAILY Strength: 50 MCG/ACT (Patient not taking: Reported on 04/09/2022) 16 g 3 Nutritional Supplements (ESTRO SUPPORT ES PO) No current facility-administered medications on file prior to visit. Allergies Allergen Reactions Prednisone Other and Anaphylaxis Cetirizine Swelling Microgestin Fe 1-20 [Norethin Yaya-Eth Estrad-Fe] Unknown and Other Norgestimate-Eth Estradiol Angioedema Objective Vitals: 06/09/22 0904 BP: 112/79 BP Location: Left arm Patient Position: Sitting BP Cuff Size: Large adult Pulse: 99 Resp: 20 Temp: 36.3 C (97.4 F) SpO2: 97% Weight: 260 lb (118 kg) Height: 5' 6 (1.676 m) Physical Exam Vitals reviewed. Constitutional: General: She is not in acute distress. Cardiovascular: Rate and Rhythm: Normal rate and regular rhythm. Pulses: Normal pulses. Heart sounds: Normal heart sounds. No murmur heard. No friction rub. No gallop. Pulmonary: Effort: Pulmonary effort is normal. Breath sounds: Normal breath sounds. No wheezing, rhonchi or rales. Lab Results Component Value Date NA 137 01/18/2022 K 4.0 01/18/2022 CL 106 01/18/2022 CO2 22 01/18/2022 BUN 12 01/18/2022 CREATININE 0.79 01/18/2022 GLUCOSE NEGATIVE 02/13/2022 CALCIUM 9.4 01/18/2022 PROT 7.4 11/08/2021 BILITOT 0.5 11/08/2021 ALKPHOS 90 11/08/2021 AST 19 11/08/2021 Lab Results Component Value Date WBC 0-5 02/13/2022 HGB 12.5 01/18/2022 HCT 39.9 01/18/2022 MCV 73.4 (L) 01/18/2022 PLT 353 01/18/2022 Lab Results Component Value Date CHOL 158 11/08/2021 CHOL 159 05/23/2021 CHOL 166 05/28/2020 Lab Results Component Value Date TRIG 134 11/08/2021 TRIG 146 05/23/2021 TRIG 157 (A) 05/28/2020 Lab Results Component Value Date HDL 40 11/08/2021 HDL 32 (L) 05/23/2021 HDL 39 (L) 05/28/2020 No results found for: LDLCALC No components found for: LABA1C Lab Results Component Value Date TSH 1.678 05/23/2021 Medication indications, directions, and side effects were discussed. The following were reviewed: [] Laboratory Results [] Imaging Results [] Images [] Clinic Notes [] D/C Summary [] ED summary (Please note: Portions of this note were completed with a voice recognition program.Efforts were made to edit the dictations but occasionally words and phrases are mis-transcribed.) documented in this encounter [facility] 06-04-2022 Miscellaneous Notes Have pt decrease caffeine intake and monitor Breast exam was normal Fay Gomez APRN.CNP documented in this encounter [facility] 06-02-2022 Note HNO ID: [id number] Author: Fay Gomez APRN.CNP Service: ? Author Type: Nurse Practitioner Type: Progress Notes Filed: 06/02/2022 2:08 PM Note Text: Oziel is a 22 year old who presents for an annual gynecologic exam without complaints. Menses: monthly Contraception: combined hormonal contraceptives HPV vaccine: N/A Last Pap: 04/25/2020 normal HPV: N/A History of abnormal pap: No Last mammogram: never Sexually active: Yes Pain with intercourse: No Postcoital bleeding: No OB History T0 L0 SAB0 IAB0 Ectopic0 Multiple0 Live Births0 Heat Curer History LMP: 05/13/2022 (Approximate), Having periods Age at Menarche: Age at First : Age at Menopause: Heat Curer History Comments: Sexual Activity: Yes; Male Contraception: None PAST MEDICAL HISTORY Diagnosis Date Asthma Depression Diabetes mellitus (HCC) Generalized anxiety disorder History reviewed. No pertinent surgical history. FAMILY HISTORY Problem Relation Age of Onset Diabetes Mother Cervical Cancer Maternal Grandmother did not require hysterectomy Lung Cancer Maternal Grandmother Multiple Sclerosis Maternal Grandmother Breast Cancer Maternal great-grandmother diagnosed >50y SOCIAL HISTORY Social History Tobacco Use Smoking status: Never Smokeless tobacco: Never Substance Use Topics Alcohol use: Never Drug use: Never REVIEW OF SYSTEMS Abdomen: No abdominal pain, nausea, vomiting, diarrhea, or constipation. No bloating, early satiety, indigestion, or increased flatulence. Bladder: No dysuria, gross hematuria, urinary frequency, urinary urgency, or incontinence. Breast: No breast lumps, nipple d/c, overlying skin changes, redness or skin retraction. Allergies and current medication updated:Yes EXAM: BP 131/84 Ht 5' 6 (1.68m) Wt 262 lb 1.6 oz (118.9kg) LMP 05/13/2022 BMI 42.32 kg/(m2). GENERAL: pleasant, female in no apparent distress HEENT: Normocephalic, atraumatic, mucus membranes moist, and no lesions NECK: Supple, full range of motion, no adenopathy, and thyroid normal DERMATOLOGY: Normal, without lesions, non-icteric, and non-hirsute BREAST: soft, non-tender, symmetric, no dominant mass, normal nipple-areolar complex, no lymphadenopathy, and no nipple discharge CHEST: Normal inspiratory effort ABDOMEN: soft, non-tender, and no masses PELVIC: external genitalia normal, normal Bartholin's glands, urethra, [place]'s glands, no vulvar lesions, no cervical lesions, good vaginal support, physiologic discharge present, normal appearing perineal body and perianal region BIMANUAL: uterus normal size, shape and consistency, no adnexal masses, and non-tender RECTOVAGINAL: deferred. NEURO: alert and oriented x3,exam grossly non-focal EXTREMITIES: normal ASSESSMENT/PLAN: 1) Health maintenance: Pap/HPV up to date. Mammogram starting age 40. 2) Contraception: none. Contraceptive options reviewed and information provided. 3) STD screening: Declined STD check. 4) Follow up one year or sooner as needed Fay Gomez APRN.[facility] 05-15-2022 Note HNO ID: [id number] Author: JOBY Fernandez Service: ? Author Type: Genetic Counselor Type: Progress Notes Filed: 05/15/2022 12:57 PM Note Text: [facility] Consultation Note Genetic Counselor: Tiki Nunez MS, [facility] [place] Patient: Oziel Roper Patient Name and confirmed at initiation of visit HIGH LEVEL SUMMARY: The patient's family history is not suggestive of a hereditary cancer syndrome. Genetic testing is not indicated at this time. The patient was encouraged to keep us updated with any changes to her personal or family history of cancer as this may affect her risk assessment. IDENTIFICATION AND CHIEF COMPLAINT: Dr. Anna Cerda requested a consultation for genetic counseling and risk assessment for Oziel Roper, a 22 year old female, for discussion of her family history of cancer. She presents to clinic today, accompanied by her mother, to discuss the possibility of a genetic predisposition to cancer, and to further clarify her risks, as well as her family members' risks for cancer. HISTORY OF PRESENT ILLNESS: Oziel Roper is a 22 year old female with no personal history of cancer. PAST MEDICAL HISTORY Diagnosis Date Asthma Depression Diabetes mellitus (HCC) Generalized anxiety disorder No past surgical history on file. CANCER SURVEILLANCE HISTORY: Mammograms: No Breast MRI's: N/A Breast Biopsies: N/A Colonoscopy: No EGD: No GI Polyps: N/A Pelvic Exam: Yes Pap Smear: Yes Dermatology: in the past SOCIAL HISTORY: Social History Tobacco Use Smoking status: Never Smokeless tobacco: Never Substance Use Topics Alcohol use: Never Drug use: Never FAMILY HISTORY: We obtained a detailed, 4-generation family history. Significant diagnoses are listed below: FAMILY HISTORY Problem Relation Age of Onset Diabetes Mother Cervical Cancer Maternal Grandmother did not require hysterectomy Lung Cancer Maternal Grandmother Multiple Sclerosis Maternal Grandmother Breast Cancer Maternal great-grandmother diagnosed >50y A copy of the patient's pedigree will be available under the scanned documents tab following today's visit. GENETIC COUNSELING RISK ASSESSMENT, DISCUSSION, AND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
== END 2023-05-16 20:09 | disposition home or self-care (01) ==
LOC: ED 20:02
PROVIDERS: Emergency Provider Emergency Medicine; Visit Provider Emergency Medicine
DX: H61.21 Impacted cerumen, right ear (principal); E11.9 Type 2 diabetes mellitus without complications; K21.9 Gastro-esophageal reflux disease without esophagitis
CPT/HCPCS: 99283

== ENCOUNTER → 2023-06-17 | Outpatient (CLI) | payer MEDICAID, SELFPAY ==
[2023-06-17 15:28] LABS: Hematocrit 42.7 % (37-47); Hemoglobin 13.2 g/dL (12.0-15.0); Mean Corp Hgb Conc 30.9 g/dL (32-36); Mean Corpuscular Hgb 25.1 pg (27.0-32.0); Mean Corpuscular Volume 81.3 fL (81-99); Mean Platelet Vol. 10.8 fl (6.2-12.0); Platelet Count 263 K/mm3 (150-450); RBC Distribution Width CV 13.3 % (11.6-14.6); Red Blood Count 5.25 M/mm3 (4.2-5.4); White Blood Count 8.1 K/mm3 (4.4-11.0)
[2023-06-17 16:24] LABS: Anion Gap 2 (5-15); BUN 8 mg/dL (7-18); Calcium,Total 8.9 mg/dL (8.5-10.1); Chloride 109 mmol/L (98-107); Creatinine, Serum 0.89 mg/dL (0.55-1.02); EST Glomerular Filtration Rate 83 mL/min (>60); Est Glom Filt Rate - Afr Amer 100 mL/min (>60); Glucose 106 mg/dL (74-106); Potassium 4.1 mmol/L (3.5-5.1); Sodium Level 138 mmol/L (136-145)
[2023-06-17 17:24] LABS: Vitamin D,25 Hydroxy 34.4 ng/mL
[2023-06-21 16:09] LABS: ANTINUCLEAR ANTIBODIES DIRECT Negative (Negative); Anti-Centromere B Ab <0.2 AI (0.0-0.9); Anti-Chromatin <0.2 AI (0.0-0.9); Anti-Jo <0.2 AI (0.0-0.9); Anti-Scleroderma-70 AB <0.2 AI (0.0-0.9); Anti-dsDNA Ab 4 IU/mL (0-9); RNP Ab 0.3 AI (0.0-0.9); SJOGREN'S Anti-SS-A test < 0.2 AI (0.0-0.9); SJOGREN'S Anti-SS-B test < 0.2 AI (0.0-0.9); Smith Ab <0.2 AI (0.0-0.9)
== END | disposition home or self-care (01) ==
LOC: BIMLAB 14:21
PROVIDERS: Anesthesiology; PCP Internal Medicine; Referring Provider Internal Medicine; Visit Provider Internal Medicine
DX: Z01.818 Encounter for other preprocedural examination (principal); R41.3 Other amnesia
CPT/HCPCS: 36415; 80048; 82306; 85027; 86038; 86225; 86235

== ENCOUNTER 2023-06-21 06:12 | Day surgery (SDC) | payer MEDICAID, SELFPAY ==
[2023-06-21] VITALS (8 sets, daily range): BP systolic 90–128; BP diastolic 47–105; PULSE 81–112; RESP 16–24; TEMP 36.3–36.8; O2SAT 4–100; BMI 39.9
[2023-06-21 06:46] LABS: Internal QC Validated? YES +Cl - CLEAR BKGD; Pregnancy, Urine Negative Negative
[2023-06-21] MEDS: Lactated Ringers 1,000 ML 15 ML IV (06:51)
[2023-06-21 07:30] LABS: Bedside Glucose 124 mg/dL (74-106)
--- NOTE | 2023-06-21 07:30 | PCM.HP.BLA ---
History and Physical Date of Admission: 06/21/23 Date of Service: 06/10/23 MR#: [id number] Acct: [id number] Name: ASHA MELGOZA Rep #: [id number] : 2000 Provider: Dr. 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 Is patient in pain?: No Allergies cetirizine [From Zyrtec] Allergy (Severe, Verified 06/10/23 13:06) Angioedemaprednisone Allergy (Severe, Verified 06/10/23 13:06) Swellingadhesive tape Allergy (Intermediate, Verified 06/10/23 13:06) Rashlatex Allergy (Intermediate, Verified 06/10/23 13:06) SwellingBIRTH CONTROLL Allergy (Intermediate, Uncoded 06/10/23 13:06) Swelling Medications albuterol sulfate 90 mcg/actuation aerosol inhaler 2 puff inhalation Q6H PRN wheezing 12/03/22 [History Confirmed 06/10/23] dulaglutide 3 mg/0.5 mL subcutaneous pen injector (Trulicity) 3 mg subcut .weekly 12/03/22 [History Confirmed 06/10/23] glycopyrrolate 2 mg tablet 2 mg PO DAILY 12/03/22 [History Confirmed 06/10/23] fluticasone propionate 50 mcg/actuation nasal spray,suspension 1 spray intranasal DAILY PRN 12/17/22 [History Confirmed 06/10/23] sumatriptan succinate 50 mg tablet mg PO PRN 12/17/22 [History Confirmed 06/10/23] ondansetron 4 mg disintegrating tablet 4 mg PO TID PRN nausea and vomiting #21 tabs 12/26/22 [Rx Confirmed 06/10/23] omeprazole 20 mg capsule,delayed release 20 mg PO DAILY #30 caps 04/06/23 [Rx Confirmed 06/10/23] PFSH Medical History Asthma Cholelithiasis CPAP (continuous positive airway pressure) dependence Diabetes GERD (gastroesophageal reflux disease) Migraine Sleep apnea Surgical History No history of previous surgery Family History Mother Asthma Diabetes Hypertension High cholesterol Congestive heart failure Arthritis Anxiety and depression CVA (cerebral vascular accident)Father Arthritis Social History adopted: No household members: spouse current occupational status: unemployed pets and animals: No Smoking Status: Never smoker Electronic Cigarette Use: not used alcohol intake: never substance use type: does not use caffeine: Yes (2) Type: coffee and tea frequency: does not exercise do you feel safe at home: Yes HPI HPI HPI: Patient is a 22-year-old female who presents for evaluation of newly diagnosed gallstones. They are referred for surgical consultation from emergency medicine after an ER visit on 12/04/2022. We had an initial surgical consultation on 12/17/2022 and at that time patient repeatedly reported that she had not experienced recurrence of her abdominal pain and thus we pursued empiric treatment for possible GERD. She is presently scheduled for an EGD to further investigate this diagnosis on 06/20/2022, however, she met with her new primary care provider, Dr. Marie and discussed progressive symptoms of abdominal pain and postprandial nausea and vomiting prompting return to our office today. Asha shares that she gets sick almost after every meal. She also notes the presence of right upper quadrant pain both before and after eating. She denies any experience of fevers or chills. She confesses that she is not presently taking any antiemetics because she simply does not have a prescription, but confirms that these medications were effective when she had a prescription. Below is recapitulated from patient's prior visit for ease of review: She presents today for follow-up on results from HIDA imaging. Patient states that since her last visit she has had nausea and vomiting just about every day. She shares that this occurs within 15 minutes of eating. The vomitus consist mainly of the food that she has eaten. She denies any associated pain or bloating. She does acknowledge a weight loss of approximately 15 pounds in conjunction with the symptoms. In the interim, it is noted that patient had an ER visit on 12/26/2022 due to complaints of recurrent abdominal pain and associated nausea. She shares that her symptoms have overall been better and that she has had no nausea. She confirms that she believes the medication was effective?especially 1 week into taking it. Yet she notes that there is still some right upper quadrant pain which she describes as mild intensity and improved over what she experienced previously. Interestingly she believes that the pain is precipitated with movement and that there is no relationship to eating. She initially denies noting any correlation to time of day but then later suggest that it may be more prevalent at night after going to bed. She has not been restricting her diet for greasy foods, but does confirm that she has not been doing many spicy foods. Beyond this right upper quadrant discomfort she denies any associated fevers or chills. Mrs. Melgoza relates that when she went to the ER that evening it was for her first experience of constant right upper quadrant tenderness and associated nausea and vomiting. She estimates that she had dinner that day at approximately 4 PM and thereafter began to experience pain at 5:30 PM. Pain is described as nonradiating. Additionally she confirms that she has felt under the weather with symptoms that include: Cough, sore throat, and runny nose. She also adds that she believes she has lost some weight because although she has not had recurrence of her pain she continues to have nausea. She notes that the nausea is mostly present when she has not recently eaten and frequently present when she is going to sleep. She also confirms a history of both heartburn and reflux which she experiences at least 3 times a week. She confirms that she is taking her prescribed pantoprazole every day with some good effect. She denies any prior history of upper scope. Because of her history she confirms that she keeps at least 4 hours between dinner and bedtime but does do some snacking in between on the account of her diabetes diagnosis. She also is only intermittent with her habit of keeping her head propped. In addition the above she does endorse some bloating. Previous work-up has included: Right upper quadrant ultrasound which demonstrated evidence of cholelithiasis and positive sonographic Mendoza's but no gallbladder wall thickening, pericholecystic fluid, or ductal dilatation. ROS General General: Yes weight change; No appetite, fatigue, colon cancer, breast cancer or weakness HEENT HEENT: No difficulty swallowing, eye injury, eye surgery, swollen glands or hoarseness Endo Endocrine: Yes diabetes mellitus; No thyroid disease, thyroid cancer, Hair loss, heat intolerance or cold intolerance Skin Skin: No rash or changing moles Breast Breast: No left breast lump, right breast lump, nipple discharge, breast pain, abnormal mammogram, abnormal US or breast enlargement Musc Musculoskeletal: No back problems, arthritis, rheumatoid arthritis, gout or joint pain Cardio Cardiovascular: No murmur, pacemaker, heart disease, atrial fibrillation, high blood pressure, heart attack, heart stent, palpitations, shortness of breat with exertion or chest pain Psych Psychiatric: No depression, anxiety or hearing voices Resp Respiratory: Yes shortness of breath, Yes sleep apnea, Yes cough, No COPD, Yes asthma, No emphysema and No wheezing Gastro Gastrointestinal: Yes abdominal pain, Yes nausea or vomiting, No diarrhea, No constipation, No blood in stool, Yes acid reflux, No hemorrhoids, No ulcers, Yes gallbladder problem and No black,tarry stools Sergei Hematologic: No blood thinners, No blood disorders, No bleeding, No anemia and No blood clots Neuro Neurologic: No system reviewed and no additional complaints, except as documented, No as per HPI, No abnormal gait, No abnormal hearing, No abnormal movements, No abnormal speech, No behavioral changes, No burning sensations, No confusion, No convulsions, No disequilibrium, No dizziness, No localized weakness, No frequent falls, No headache(s), No lack of coordination, No loss of vision, No memory loss, No numbness, No other visual disturbances, No radicular pain, No restless legs, No sensory deficit, No syncope, No tingling, No tremor(s), No weakness and No other Exam Const General: cooperative Orientation: alert, awake and oriented x3 Resp Effort & Inspection: normal respiratory effort GI Other: No scars, nondistended, soft, tenderness across the upper abdomen with pronounced tenderness in the right upper quadrant upon palpation Assessment and Plan Assessment and Plan (1) Nausea & vomiting: Status: Acute Comment: Patient with consistent complaints of nausea and vomiting. Etiology remains unclear. This does not seem clearly linked to a gallbladder etiology given the short duration to her symptoms from eating. As above plan to do an EGD and test her for H. pylori with biopsies. Update 06/10/2023: Patient with persistent nausea and vomiting. It appears from her history that this still is primarily postprandial. I shared with patient that I still recommend pursuing EGD with biopsy, but given her renewed complaints of pain I do find it reasonable to pursue cholecystectomy if this exam does not give us probable cause for her symptoms. If, however, this exam suggests a cause we will plan to reevaluate plans for surgery. Plan: Proceed with diagnostic EGD and biopsy as initially planned 06/21/2023. Will determine from this exam if there is lingering probable cause that this is gallbladder?related to pursue cholecystectomy. (2) Abdominal pain: Status: Acute Comment: Patient denies any abdominal pain with her nausea and vomiting complaints today. She is also nontender to palpation of the right upper quadrant today. She is minimally tender to palpation in the epigastrium. This change suggest possible upper GI source and I have shared a recommendation to proceed with the EGD. Patient describing progressive abdominal discomfort. On exam this is focused in the right upper quadrant Plan: Plan for laparoscopic cholecystectomy with intraoperative cholangiography. Procedure and its risks and benefits were discussed in detail including hand drawings to demonstrate. (3) Abnormal biliary HIDA scan: Status: Acute Comment: Ejection fraction of 18% is certainly abnormal and consistent with a diagnosis of biliary dyskinesia, however, patient denies any pain with CCK administration. I have shared with patient, as above, that she may require cholecystectomy in time, but given the change in the nature of her symptoms believe EGD is going to be of highest yield at this time. Plan: Will plan to proceed with laparoscopic cholecystectomy?targeting the week of 06/28/2023 I have examined the patient and the H&P has been reviewed. There are no clinical changes since date of exam. Patient confirms that she has ongoing right upper quadrant, postprandial discomfort that remains associated with nausea, vomiting, and bloating. Will therefore proceed to the endoscopy suite for planned EGD as discussed in detail above and in previous notes.
[2023-06-21] MEDS: Ipratropium/Albuterol Sulfate 3 ML AMPUL.NEB INHALATION (08:32)
--- NOTE | 2023-06-21 08:32 | OP.CCLET_ITS ---
06/21/2023 Hilary Marie Md Re : Upper GI endoscopy procedure for Asha Roper Dear Frank This procedure was performed on Wednesday, June 21, 2023. My impressions and recommendations are as follows: Impressions : - The procedure was aborted due to the patient's respiratory instability (hypoxia). - A medium amount of food (residue) in the stomach. No specimens collected. - No gross lesions in the duodenal bulb, in the first portion of the duodenum and in the second portion of the duodenum. No specimens collected. Recommendations : - Discharge patient to home (via wheelchair). - Resume previous diet today. - Continue present medications. - Telephone my office for study results in 1 month. My findings are described in the full procedure note, which is enclosed. If I can be of further assistance, please feel free to contact me at Doctor phone number(s): , Work: . Sincerely, Rafael Bear MD 06/21/2023 8:32:20 AM This report has been signed electronically.
--- NOTE | 2023-06-21 08:32 | OP.EGD_ITS ---
Patient Name: Asha Roper Procedure Date: 06/21/2023 7:30 AM Date of : 2000 Age: 23 Procedure: Upper GI endoscopy Indications: Epigastric abdominal pain, Abdominal pain in the right upper quadrant, Suspected esophageal reflux, Abdominal bloating, Nausea with vomiting Providers: Rafael Bear MD Medicines: See the Anesthesia note for documentation of the administered medications Patient Profile: Refer to note in patient chart for documentation of history and physical. Complications: Hypoxia Procedure: Pre-Anesthesia Assessment: - The heart rate, respiratory rate, oxygen saturations, blood pressure, adequacy of pulmonary ventilation, and response to care were monitored throughout the procedure. After obtaining informed consent, the endoscope was passed under direct vision. Throughout the procedure, the patient's blood pressure, pulse, and oxygen saturations were monitored continuously. The gastroscope was introduced through the mouth, with the intention of advancing to the duodenum. The scope was advanced to the second part of the duodenum before the procedure was aborted. Medications were given. The procedure was aborted due to the patient's respiratory instability (hypoxia). Performing chin lift and administering oxygen did not allow for the successful completion of the procedure. Scope In: 7:46:52 AM Scope Out: 8:18:36 AM Total Procedure Duration Time 0 hours 31 minutes 44 seconds Findings: A medium amount of food (residue) was found in the gastric fundus. No biopsies or other specimens were collected for this exam. No gross lesions were noted in the duodenal bulb, in the first portion of the duodenum and in the second portion of the duodenum. No biopsies or other specimens were collected for this exam. Impression: - The procedure was aborted due to the patient's respiratory instability (hypoxia). - A medium amount of food (residue) in the stomach. No specimens collected. - No gross lesions in the duodenal bulb, in the first portion of the duodenum and in the second portion of the duodenum. No specimens collected. Recommendation: - Discharge patient to home (via wheelchair). - Resume previous diet today. - Continue present medications. - Telephone my office for study results in 1 month. Procedure Code(s): --- Professional --- 05191, 52, Esophagogastroduodenoscopy, flexible, transoral; diagnostic, including collection of specimen(s) by brushing or washing, when performed (separate procedure) Diagnosis Code(s): --- Professional --- Z53.09, Procedure and treatment not carried out because of other contraindication R10.13, Epigastric pain R10.11, Right upper quadrant pain R14.0, Abdominal distension (gaseous) R11.2, Nausea with vomiting, unspecified CPT copyright 2021 [employer]. All rights reserved. The codes documented in this report are preliminary and upon jailer/training officer review may be revised to meet current compliance requirements. Rafael Bear MD 06/21/2023 8:32:20 AM This report has been signed electronically. Number of Addenda: 0 Note Initiated On: 06/21/2023 7:30 AM
--- NOTE | 2023-06-23 06:51 | EKG12_ITS ---
Test Reason : PREOP Blood Pressure : / mmHG Vent. Rate : 098 BPM Atrial Rate : 098 BPM P-R Int : 182 ms QRS Dur : 088 ms QT Int : 362 ms P-R-T Axes : 056 044 040 degrees QTc Int : 462 ms Normal sinus rhythm Normal ECG Confirmed by DRISS HOLLINS, BRONWYN ([id number]), news videotape editor MARCELO TOVAR ([id number]) on 06/23/2023 6:53:05 AM Referred By: Hilary Marie Confirmed By:BRONWYN NAQVI MD
== END 2023-06-21 09:16 | disposition home or self-care (01) ==
LOC: EN 06:13 → AC 06:16
PROVIDERS: Anesthesiology; PCP Internal Medicine; Referring Provider Internal Medicine; Visit Provider Surgery
PROC: 0DJ08ZZ Inspection of Upper Intestinal Tract, Via Natural or Artificial Opening Endoscopic (ICD-10-PCS; CPT 43235; principal; 2023-06-21 07:25)
DX: Z53.8 Procedure and treatment not carried out for other reasons (principal); E11.9 Type 2 diabetes mellitus without complications; K21.9 Gastro-esophageal reflux disease without esophagitis; R09.02 Hypoxemia; G47.30 Sleep apnea, unspecified; J45.909 Unspecified asthma, uncomplicated; Z79.51 Long term (current) use of inhaled steroids; Z79.899 Other long term (current) drug therapy
CPT/HCPCS: 43235; 81025; 82962; 94640; J7120; J2405

== ENCOUNTER 2023-06-21 10:00 | Outpatient (CLI) | payer MEDICAID, SELFPAY ==
[2023-06-21 08:42] LABS: Hematocrit 40.9 % (37-47); Hemoglobin 12.4 g/dL (12.0-15.0); Mean Corp Hgb Conc 30.3 g/dL (32-36); Mean Corpuscular Hgb 24.9 pg (27.0-32.0); Mean Corpuscular Volume 82.3 fL (81-99); Mean Platelet Vol. 10.8 fl (6.2-12.0); Platelet Count 238 K/mm3 (150-450); RBC Distribution Width CV 13.5 % (11.6-14.6); RBC Distribution Width SD 39.9 fl (35.1-43.9); Red Blood Count 4.97 M/mm3 (4.2-5.4); White Blood Count 5.8 K/mm3 (4.4-11.0)
[2023-06-21 08:57] LABS: Anion Gap 4 (5-15); BUN 14 mg/dL (7-18); BUN/Creat Ratio 18.3 RATIO (10-20); Calcium,Total 8.3 mg/dL (8.5-10.1); Chloride 109 mmol/L (98-107); Creatinine, Serum 0.77 mg/dL (0.55-1.02); EST Glomerular Filtration Rate 98 mL/min (>60); Est Glom Filt Rate - Afr Amer 119 mL/min (>60); Glucose 142 mg/dL (74-106); Sodium Level 139 mmol/L (136-145)
== END 2023-06-23 23:59 | disposition home or self-care (01) ==
LOC: SDC 01-27 10:19
PROVIDERS: PCP Internal Medicine; Referring Provider Surgery; Visit Provider Surgery
DX: Z01.818 Encounter for other preprocedural examination (principal)
CPT/HCPCS: 80048; 85027; 93005

== ENCOUNTER 2023-06-26 18:36 | Emergency (ER) | payer MEDICAID, SELFPAY ==
[2023-06-26 18:37] VITALS: BP 144/90; PULSE 81; RESP 16; TEMP 36.4; O2SAT 99; BMI 24.8
--- NOTE | 2023-06-26 20:34 | ED.VIS.DENTA ---
HPI History of Present Illness Chief Complaint: Dental Informant: patient and spouse/S.O. Onset/Context/Timing Onset: Days (5) Context: Gradual Onset Timing: Continuous Quality: Aching Location: Upper and lower third molars Worsened by: Nothing Relieved by: - (Nothing) Associated Symptoms Assocated Symptom - Dental: cold sensitivity; Negative for fever, jaw swelling, face swelling or hot sensitivity Narrative Narrative: Patient presents with dental pain that has been getting worse over the past 5 days. Patient states it is mainly over the wisdom teeth area. Patient describes her pain as aching. Patient admits to some cold sensitivity. Patient denies any fevers or chills. Patient states nothing makes her pain better and nothing makes it worse. Patient denies any facial swelling or jaw swelling. Patient denies any fevers or chills. [facility] Medical History (Updated 06/26/23 @ 20:[address] Paramjit Reeves, DO) Anxiety Asthma Cholelithiasis CPAP (continuous positive airway pressure) dependence Depression Diabetes Dietary restriction Gastric reflux GERD (gastroesophageal reflux disease) Leg cramps Migraine Non-smoker Shortness of breath on exertion Sleep apnea Wears glasses Home Medications albuterol sulfate 90 mcg/actuation aerosol inhaler 2 puff inhalation Q6H PRN wheezing 12/03/22 [History Last Taken Unknown] dulaglutide 3 mg/0.5 mL subcutaneous pen injector (Trulicity) 3 mg subcut .weekly 12/03/22 [History Last Taken 06/16/23] glycopyrrolate 2 mg tablet 2 mg PO DAILY 12/03/22 [History Last Taken 06/20/23] sumatriptan succinate 50 mg tablet 50 mg PO PRN PRN migraine headache 12/17/22 [History Last Taken Unknown] ondansetron 4 mg disintegrating tablet 4 mg PO TID PRN nausea and vomiting #21 tabs 12/26/22 [Rx Last Taken Unknown] omeprazole 20 mg capsule,delayed release 20 mg PO DAILY #30 caps 04/06/23 [Rx Last Taken 06/20/23] penicillin V potassium 500 mg tablet 500 mg PO 4X/DAY #40 tabs 06/26/23 [Rx Last Taken Unknown] Allergy/AdvReac Type Severity Reaction Status Date / Time cetirizine [From [facility]] Allergy Severe Angioedema Verified 06/26/23 18:36 prednisone Allergy Severe Swelling Verified 06/26/23 18:36 adhesive tape Allergy Intermediate Rash Verified 06/26/23 18:36 latex Allergy Intermediate Swelling Verified 06/26/23 18:36 CONTROLL Allergy Intermediate Swelling Uncoded 06/17/23 13:37 Family History Mother Asthma Diabetes Hypertension High cholesterol Congestive heart failure Arthritis Anxiety and depression CVA (cerebral vascular accident) Father Arthritis Surgical History History of esophagogastroduodenoscopy (EGD) No history of previous surgery Social History adopted: No household members: spouse current occupational status: unemployed pets and animals: No Smoking Status: Never smoker Electronic Cigarette Use: not used alcohol intake: never substance use type: does not use caffeine: Yes (2) Type: coffee and tea frequency: does not exercise do you feel safe at home: Yes ROS ROS ED Constitutional Constitutional ED: Denies chills or fever(s) Eyes Eyes: Denies blurry vision or change in vision ENT ENT ED: Denies rhinorrhea or sore throat Cardiovascular Cardiovascular: Denies chest pain or palpitations Respiratory/Chest Respiratory/Chest: Denies cough or dyspnea Gastrointestinal Gastrointestinal: Denies nausea or vomiting Genitourinary Genitourinary ED: Denies dysuria or hematuria Musculoskeletal Musculoskeletal: Denies back pain or neck pain Integumentary Denies abscess or rash Neurologic Neurologic: Denies headache(s) or weakness Allergic/Immunologic Allergic/Immunologic ED: Denies mouth swelling or urticaria EXAM Physical Exam Const Vital Signs: 06/26/23 18:37 Temperature 97.5 F L Temperature Source Temporal Pulse Rate 81 Respiratory Rate 16 Blood Pressure 144/90 H Blood Pressure Mean 108 Pulse Ox 99 Positive well nourished, well developed and obese General Appearance ED: well developed and NAD Nutritional Appearance: obese HEENT HEENT Narrative: There are dental caries and gingival edema over the lower third molars bilaterally. There is also mild tenderness over the upper third molars bilaterally. Oral mucosa is pink and moist. Oropharynx is clear. Airway is patent. There is no sublingual edema. There is no evidence of Junior's angina. There is no evidence of any abscess. Mouth ED: Yes oral and palatal mucosa normal Mouth: oral and palatal mucosa normal Teeth and Gingiva: gingiva abnormal Positive for gingival edema Throat: posterior oropharynx normal Neck supple and no JVD General: normal visual inspection; Negative for anterior neck swelling, tenderness or submandibular swelling Resp normal respiratory effort and clear to auscultation bilaterally Cardio regular rate and regular rhythm Neuro oriented x3, CN's II-XII intact bilaterally, moves all extremities, no focal motor deficits and no sensory deficits noted Sensorium / Orientation: alert Motor Exam: strength 5/5 throughout Psych mental status grossly normal MDM MDM MDM Narrative Medical decision making narrative: Patient was advised that there are infected dental caries noted over the lower third molars. Patient was given a dose of Pen-Vee K here. Patient was given a prescription for Pen-Vee K. Patient was instructed to follow-up with her dentist in 5 to 7 days. Patient was instructed to return if worse in any way. Patient understood and was agreeable with the plan. All questions were answered. Discharge Plan Triage Chief Complaint: Dental ED Provider: Paramjit Reeves Dx/Rx/DC Orders Clinical Impression: Infected dental caries Instructions: ED Dental Pain Prescriptions: New penicillin V potassium 500 mg tablet 500 mg PO 4X/DAY Qty: 40 0RF No Action sumatriptan succinate 50 mg tablet 50 mg PO PRN PRN (Reason: migraine headache) Patient Comments: Take 1 tablet by mouth Once as needed for migraine. May repeat after 2 hours. glycopyrrolate 2 mg tablet 2 mg PO DAILY Patient Comments: TAKE 1 TABLET BY MOUTH ONCE DAILY Trulicity 3 mg/0.5 mL pen injector 3 mg SUBCUT .weekly Patient Comments: takes on wednesdays albuterol sulfate 90 mcg/actuation HFA aerosol inhaler 2 puff INHALATION Q6H PRN (Reason: wheezing) Patient Comments: inhale 2 puffs by mouth and INTO THE LUNGS every 6 hours if needed for wheezing ondansetron 4 mg tablet,disintegrating 4 mg PO TID PRN (Reason: nausea and vomiting) Qty: 21 1RF omeprazole 20 mg capsule,delayed release(DR/EC) 20 mg PO DAILY Qty: 30 1RF Primary Care Provider: Hilary Marie Referrals: Hilary Marie MD [Primary Care Provider] - 5-7 Days [facility] [Non-Staff] - 3-5 Days Disposition Disposition: Home, Self Care
[2023-06-26] MEDS: Penicillin Vk 250 MG Tablet 500 MG PO (20:50)
[2023-06-26 20:54] VITALS: BP 128/92; PULSE 82; RESP 16; TEMP 37.1; O2SAT 100
== END 2023-06-26 20:54 | disposition home or self-care (01) ==
PROVIDERS: Emergency Provider Emergency Medicine; PCP Internal Medicine; Visit Provider Emergency Medicine
DX: K02.9 Dental caries, unspecified (principal); E11.638 Type 2 diabetes mellitus with other oral complications; J45.909 Unspecified asthma, uncomplicated; K21.9 Gastro-esophageal reflux disease without esophagitis; E66.9 Obesity, unspecified
CPT/HCPCS: 99282

== ENCOUNTER → 2023-07-13 | Outpatient (CLI) | payer MEDICAID, SELFPAY ==
--- NOTE | 2023-07-13 08:12 | MRI_ITS ---
STUDY: MRI BRAIN WITH AND WITHOUT CONTRAST REASON FOR EXAM: Female, 23 years old. Cognitive decline, MEMORY ISSUES TECHNIQUE: Standardized multiplanar fat and water weighted pulse sequences were obtained. IV 21ml Clariscan was administered for the contrast portion of the examination. COMPARISON: None. FINDINGS: Normal size of the ventricles and extra-axial spaces for the patient''s age. Normal white matter tracts of the supratentorial brain. Normal bilateral basal ganglia. Normal thalami. There is no extra-axial fluid accumulation. Normal flow voids within the major intracranial circulation suggesting patency by spin echo criteria. Normal venous enhancement. There is no enhancing intra-axial or extra-axial abnormality. Normal sella turcica, pituitary gland, infundibular stalk, optic chiasm and hypothalamus. Normal tectal plate and pineal gland. Normal midbrain, pete and medulla. Normal cerebellum. Normal basal cisterns. Normal bilateral temporal bones. Normal bilateral internal auditory canals. No demonstrated orbital abnormality, within the constraints of a routine brain study. Normal visualized paranasal sinuses. Normal calvarium and skull base. Normal visualized soft tissue structures. Normal visualized upper cervical spine. MRI/Brain W/WO Contrast IMPRESSION: Normal unenhanced and enhanced MRI of the brain. Electronically Signed: Cam Chong MD at 19:45 EDT ,
== END | disposition home or self-care (01) ==
LOC: MRI 07:49
PROVIDERS: PCP Internal Medicine; Referring Provider Internal Medicine; Visit Provider Internal Medicine
DX: R41.3 Other amnesia (principal)
CPT/HCPCS: 70553; A9575

== ENCOUNTER → 2023-07-31 | Outpatient (CLI) | payer MEDICAID, SELFPAY ==
[2023-08-03 13:07] LABS: H. PYLORI STOOL AG Negative (Negative)
== END | disposition home or self-care (01) ==
LOC: LAB 11:19
PROVIDERS: PCP Internal Medicine; Referring Provider Surgery; Visit Provider Surgery
DX: R11.2 Nausea with vomiting, unspecified (principal); R10.9 Unspecified abdominal pain
CPT/HCPCS: 87338; 87506

== ENCOUNTER 2023-09-20 17:14 | Emergency (ER) | payer MEDICAID, SELFPAY ==
[2023-09-20 17:15] VITALS: BP 133/91; PULSE 91; RESP 16; TEMP 35.8; O2SAT 98
[2023-09-20 20:23] LABS: Bacteria 0 SEEN /hpf (None Seen); Mucous, Urine 0 SEEN /hpf (<or=2+)
[2023-09-20 20:27] LABS: Color, Urine Yellow (Yellow); Glucose, Dipstick Normal (Normal); Ketone-Dipstick 5 mg/dl (Negative); Leukocyte Esterase-Dipstick 100 /ul (Negative); Nitrite-Dipstick Negative (Negative); Occult Blood-Urine 10 /ul (Negative); Protein-Dipstick 15 mg/dl (Negative); Urine Bilirubin Dipstick Negative (Negative); Urine Clarity Sl. Cloudy (Clear); Urine Urobilinogen 1 mg/dl (Normal)
[2023-09-20 20:34] LABS: Amorphous Sediment 1+ URATE; Red Blood Cells-Urine 0-5 SEEN /hpf (0-5); Squamous Epithelial Cells - UA 10-25 SEEN /hpf (5-10); White Blood Cells 5-10 SEEN /hpf (0-5)
[2023-09-20] MEDS: Acetaminophen 325 MG Tablet 650 MG PO (21:09)
[2023-09-20] MEDS: Lidocaine 5% Patch 1 PATCH TOPICAL (21:09)
[2023-09-20 21:15] VITALS: BP 118/74; PULSE 65; RESP 18; O2SAT 99
[2023-09-20 22:12] VITALS: BP 118/71; PULSE 65; RESP 14; TEMP 36.6; O2SAT 97
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
== END 2023-09-20 22:44 | disposition home or self-care (01) ==
PROVIDERS: Emergency Provider Emergency Medicine; PCP Internal Medicine; Visit Provider Emergency Medicine
DX: O99.891 Other specified diseases and conditions complicating pregnancy (principal); E11.9 Type 2 diabetes mellitus without complications; M54.50 Low back pain, unspecified; Z3A.09 9 weeks gestation of pregnancy; K21.9 Gastro-esophageal reflux disease without esophagitis; J45.909 Unspecified asthma, uncomplicated; R30.0 Dysuria; R35.0 Frequency of micturition; O99.281 Endocrine, nutritional and metabolic diseases complicating pregnancy, first trimester; O99.511 Diseases of the respiratory system complicating pregnancy, first trimester; O99.611 Diseases of the digestive system complicating pregnancy, first trimester
CPT/HCPCS: 81001; 87086; 87088; 99285

== ENCOUNTER → 2023-10-04 | Outpatient (CLI) | payer MEDICAID, SELFPAY ==
[2023-10-04 12:15] LABS: Absolute Lymphocyte Count 2.13 X10^3/uL (0.83-4.51); Absolute Neutrophil Count 3.9 X10^3/uL (2.0-7.7); Basophil# 0.02 X10^3/uL; Basophil% 0.3 % (0-1); Eosinophil# 0.04 X10^3/uL; Eosinophils% 0.6 % (0-5); Hematocrit 40.6 % (37-47); Hemoglobin 13.2 g/dL (12.0-15.0); Lymphocyte # 2.13 X10^3/ul (0.83-4.51); Lymphocyte % 32.5 % (19-41); Mean Corp Hgb Conc 32.5 g/dL (32-36); Mean Corpuscular Hgb 26.1 pg (27.0-32.0); Mean Corpuscular Volume 80.2 fL (81-99); Mean Platelet Vol. 10.7 fl (6.2-12.0); Monocyte# 0.48 X10^3/uL; Monocyte% 7.3 % (0-10); NRBC Flagged by Analyzer 0 % (0-5); Neutrophil # 3.88 X10^3/uL (2.7-7.7); Neutrophil % 59.1 % (47-70); Platelet Count 217 K/mm3 (150-450); RBC Distribution Width CV 14.6 % (11.6-14.6); RBC Distribution Width SD 42.6 fl (35.1-43.9); Red Blood Count 5.06 M/mm3 (4.2-5.4); White Blood Count 6.6 K/mm3 (4.4-11.0)
[2023-10-04 12:33] LABS: Hemoglobin A1c 6.8 % (3.8-5.6)
[2023-10-04 13:35] LABS: HIV - WCH Non-Reactive (Nonreactive); Hepatitis B Surface Antigen Non-Reactive (Nonreactive); Hepatitis C Antibody Non-Reactive (Nonreactive); Rubella IgG Reactive (Nonreactive); Syphilis Antibodies Non-reactive
[2023-10-07 03:07] LABS: Chlamydia By Nucleic Acid AMP Negative (Negative); Gonococcus By Nucleic Acid AMP Negative (Negative)
== END | disposition home or self-care (01) ==
PROVIDERS: PCP Internal Medicine; Referring Provider Obstetrics & Gynecology; Visit Provider Obstetrics & Gynecology
DX: O99.210 Obesity complicating pregnancy, unspecified trimester (principal); E66.01 Morbid (severe) obesity due to excess calories; Z31.430 Encounter of female for testing for genetic disease carrier status for procreative management; Z3A.00 Weeks of gestation of pregnancy not specified
CPT/HCPCS: 36415; 83036; 85025; 86703; 86762; 86780; 86803; 86850; 86900; 86901; 87086; 87088; 87340; 87491; 87591

== ENCOUNTER 2023-10-28 18:58 | Emergency (ER) | payer MEDICAID, SELFPAY ==
[2023-10-28 18:58] VITALS: BP 134/87; PULSE 102; RESP 17; TEMP 36.4; O2SAT 97
[2023-10-28 20:54] LABS: Absolute Lymphocyte Count 3.95 X10^3/uL (0.83-4.51); Basophil# 0.03 X10^3/uL; Basophil% 0.3 % (0-1); Eosinophil# 0.11 X10^3/uL; Eosinophils% 0.9 % (0-5); Hematocrit 39.5 % (37-47); Hemoglobin 12.8 g/dL (12.0-15.0); Lymphocyte # 3.95 X10^3/ul (0.83-4.51); Lymphocyte % 33.5 % (19-41); Mean Corp Hgb Conc 32.4 g/dL (32-36); Mean Corpuscular Hgb 26.4 pg (27.0-32.0); Mean Corpuscular Volume 81.6 fL (81-99); Mean Platelet Vol. 10.3 fl (6.2-12.0); Monocyte# 0.62 X10^3/uL; Monocyte% 5.3 % (0-10); NRBC Flagged by Analyzer 0 % (0-5); Neutrophil # 7.03 X10^3/uL (2.7-7.7); Neutrophil % 59.7 % (47-70); Platelet Count 236 K/mm3 (150-450); RBC Distribution Width CV 14.8 % (11.6-14.6); RBC Distribution Width SD 43.7 fl (35.1-43.9); Red Blood Count 4.84 M/mm3 (4.2-5.4); White Blood Count 11.8 K/mm3 (4.4-11.0)
[2023-10-28 20:58] VITALS: BP 128/71; PULSE 87; RESP 18; O2SAT 95
[2023-10-28 21:10] LABS: Internal QC Validated? YES +Cl - CLEAR BKGD; Record Kit Lot#, Serum Preg. 772476
[2023-10-28 21:15] LABS: ALB/GLOB Ratio 0.7 RATIO (0.9-2.4); AST(SGOT) 10 U/L (15-37); Alanine Aminotransfer ALT/SGPT 22 U/L (13-56); Alkaline Phosphatase 71 U/L (45-117); Anion Gap 7 (5-15); BUN 10 mg/dL (7-18); BUN/Creat Ratio 14.2 RATIO (10-20); Calcium,Total 8.5 mg/dL (8.5-10.1); Chloride 107 mmol/L (98-107); Creatinine, Serum 0.71 mg/dL (0.55-1.02); EST Glomerular Filtration Rate 108 mL/min (>60); Est Glom Filt Rate - Afr Amer 130 mL/min (>60); Globulin 4.3 g/dL (2.2-4.2); Glucose 100 mg/dL (74-106); Potassium 3.7 mmol/L (3.5-5.1); Protein, Total 7.3 g/dL (6.4-8.2); Sodium Level 138 mmol/L (136-145)
--- NOTE | 2023-10-28 21:16 | US_ITS ---
INDICATION: ruq pain EXAMINATION: Ultrasound US Abdomen RUQ (limited) TECHNIQUE: Valdivia scale and color doppler imaging was performed of the right upper quadrant. COMPARISON: December 03, 2022. FINDINGS: LIVER: There is normal echotexture. Hepatopedal portal flow. No focal hepatic lesion. There is no free fluid. GALLBLADDER AND BILIARY TREE: Nondistended, filled with multiple shadowing stones.No pericholecystic fluid or gallbladder wall thickening is demonstrated. The proximal common bile duct measures 3 mm, which is within normal limits for the patient''s age. Songraphic Mendoza''s sign: Positive. PANCREAS: Unremarkable pancreatic head without gross ductal ectasia. Pancreatic body and tail are obscured by bowel gas RIGHT KIDNEY: 12.4 cm in length. No hydronephrosis. No shadowing nephrolithiasis. Normal cortical echogenicity without focal thinning or scarring. No evidence of cystic or solid mass. US/Abdomen Limited IMPRESSION: Cholelithiasis with nonspecific positive sonographic Mendoza''s. No other secondary evidence of cholecystitis. Nuclear medicine hepatobiliary scan could further evaluate as clinically indicated. Small right renal cyst. Electronically Signed: González Almanza MD at 22:31 EDT ,
[2023-10-28 21:39] LABS: Lipase 25 U/L (13-75)
[2023-10-28 22:00] VITALS: BP 121/69; PULSE 84; RESP 18; O2SAT 96
--- NOTE | 2023-10-28 22:09 | EDS_ITS ---
HPI History of Present Illness Chief Complaint: Abd Pain Narrative Narrative: Patient is G1, P0 15 weeks who presents to the emerged part with chief complaint of abdominal pain in the right upper quadrant. According to the patient for the past several days she had developed upper abdominal pain and states that things were not getting better therefore she came here for further evaluation management. Patient states that she did have a an appointment in the outpatient setting with her INTELLIGENCE SPECIALIST and had a ultrasound performed that confirmed an intrauterine . Patient denies any recent sick contacts. States that she does have some nausea but denies vomiting or diarrhea. [facility] Medical History Seasonal allergies Wears glasses Depression Anxiety Dietary restriction Gastric reflux Non-smoker Shortness of breath on exertion Leg cramps Migraine Cholelithiasis Diabetes GERD (gastroesophageal reflux disease) CPAP (continuous positive airway pressure) dependence Sleep apnea Asthma Home Medications ?Medication ?Instructions ?Recorded ?Last Taken ?Type albuterol sulfate 90 mcg/actuation 2 puff inhalation Q6H PRN wheezing 12/03/22 Unknown History aerosol inhaler sumatriptan succinate 50 mg tablet 50 mg PO PRN PRN migraine headache 12/17/22 Unknown History ondansetron 4 mg disintegrating 4 mg PO TID PRN nausea and 12/26/22 Unknown Rx tablet vomiting #21 tabs pen needle, diabetic 29 gauge x #100 ea 08/18/23 Unknown Rx 1/2 (Ultra-Thin II Insulin Pen [place]) glycopyrrolate 2 mg tablet 2 mg PO DAILY #30 tabs 08/26/23 Unknown Rx cyclobenzaprine 10 mg tablet 10 mg PO TID PRN Muscle Spasm #20 09/20/23 Unknown Rx TABLETS PNV 153-[id number] 400 mcg-om3 35 mg-dha tab PO 09/28/23 Unknown History 25 mg-epa 5 mg-fish oil chew tablet flash glucose sensor (FreeStyle 09/28/23 Unknown History Shobha 2 Sensor kit) insulin glargine 100 unit/mL (3 14 unit subcut QPM 09/28/23 Unknown History mL) subcutaneous pen (Lantus Solostar U-100 Insulin) lansoprazole 15 mg capsule,delayed 15 mg PO DAILY 1 month #30 caps 10/11/23 Unknown Rx release insulin regular human 100 unit/mL 15 unit (0.15 mL) subcut TID #15 mL 10/14/23 Unknown Rx (3 mL) subcutaneous pen cephalexin 500 mg capsule 500 mg PO BID 5 days #10 caps 10/28/23 Unknown Rx famotidine 20 mg tablet (Pepcid) 20 mg PO BID #60 tabs 10/28/23 Unknown Rx Allergy/AdvReac Type Severity Reaction Status Date / Time cetirizine (From [facility]) Allergy Severe Angioedema Verified 10/28/23 18:58 prednisone Allergy Severe Swelling Verified 10/28/23 18:58 adhesive tape Allergy Intermediate Rash Verified 10/28/23 18:58 latex Allergy Intermediate Swelling Verified 10/28/23 18:58 CONTROLL Allergy Intermediate Swelling Uncoded 09/28/23 09:06 Family History Mother Asthma Diabetes Hypertension High cholesterol Congestive heart failure Arthritis Anxiety and depression CVA (cerebral vascular accident) History of recurrent miscarriages Father Arthritis Surgical History History of esophagogastroduodenoscopy (EGD) No history of previous surgery Social History adopted: No household members: spouse current occupational status: employed current occupation: [employer] pets and animals: No history of recent travel: No sexually active: Yes Smoking Status: Never smoker Electronic Cigarette Use: not used alcohol intake: never substance use type: does not use well-balanced diet: about half the time caffeine: Yes (2) Type: coffee and tea eating out: 1-3 times/week during the past year weight has: increased > 10 lbs frequency: does not exercise fred/moravian: Gnosticist seatbelt use: always do you feel safe at home: Yes additional social history: Tyree LEE ROSA ED ROSA Narrative Constitutional: Denies any fevers, chills, headaches, lightness, dizziness Eyes: Denies any double vision blurry vision change in vision Cardiovascular: Denies chest pain or palpitations Respiratory: Denies coughing wheezing shortness of breath Abdomen: Complains of abdominal pain as noted above and nausea denies vomiting diarrhea : Denies any urinary symptoms Neurological: Denies any numbness, weakness, tingling Musculoskeletal: Denies back pain Skin: Denies rashes lesions EXAM Physical Exam Narrative Exam Narrative: General: Patient lying in bed resting comfortably did not appear to be in acute distress Head: Atraumatic, normocephalic Eyes: PERRL bilaterally, EOMI bilateral, no conjunctival injection noted Neck: Soft, supple, trachea midline Cardiovascular: Regular rate and rhythm no murmurs gallops rubs noted Respiratory: Clear to auscultation bilaterally no rales rhonchi wheeze noted Abdomen: Soft, nondistended, tender to palpation of the right upper quadrant no rebound or guarding on exam, bowel sounds present x 4 Extremities: +5/5 strength noted in the bilateral pedal extremities, no pedal edema on exam Neurological: Patient follow commands knew that she was at [facility] years 2023 Skin: Warm, dry, intact Const Vital Signs: 10/28/23 18:58 10/28/23 20:58 10/28/23 22:00 Temperature 97.6 F L Temperature Source Temporal Pulse Rate 102 H 87 84 Respiratory Rate 17 18 18 Blood Pressure 134/87 H 128/71 H 121/69 H Blood Pressure Mean 102 90 86 Pulse Ox 97 95 96 Oxygen Delivery Method Room Air Room Air Room Air MDM MDM MDM Narrative Medical decision making narrative: Patient is a 23-year-old female who presented to the emergency department the chief complaint of abdominal pain and . Patient will have workup performed here on the differential diagnose includes but not limited to chol ecystitis, pancreatitis, viral gastroenteritis. Once workup is obtained reviewed she will be reevaluated. Patient CBC showed a mild leukocytosis of 11,000, hemoglobin stable 12.8, platelet count normal at 236. Patient's sodium normal 138, potassium normal 3.7, creatinine normal at 0.71. Patient's AST and ALT were normal at 10 and 22 respectively with a normal total bilirubin 0.40. Patient's urinalysis showed 100 glucose negative nitrates 25 leukocyte esterase with 0-5 white blood cells seen and 10-25 squamous epithelial cells with 1+ bacteria this will be sent for culture she will given a prescription for Keflex and will be advised to follow- up on the culture results with her INTELLIGENCE SPECIALIST in the outpatient setting. She was given her first dose here in the emergency department. Patient's ultrasound of her abdomen reviewed showed cholelithiasis with none specific positive sonographic Mendoza's. No other evidence of cholecystitis nuclear medicine hepatobiliary scan recommended. Did discuss case with on-call general surgeon Dr. Avila who reviewed her previous ultrasounds and states that her gallbladder is actually less distended today and does not believe that this is acute cholecystitis. She is recommending antiacid reflux medication Pepcid. Patient states that she has a appointment with her INTELLIGENCE SPECIALIST on Wednesday. Patient was advised to avoid fatty greasy foods. Patient would like to go home at this point time she was encouraged return with worsening symptoms or other concerns. All question concerns answered she was discharged home in stable condition. Lab Data Labs: Laboratory Results - last 24 hr 10/28/23 10/28/23 20:45 22:25 WBC 11.8 H RBC 4.84 Hgb 12.8 Hct 39.5 MCV 81.6 MCH 26.4 L MCHC 32.4 RDW Std Deviation 43.7 RDW Coeff of Elmo 14.8 H Plt Count 236 MPV 10.3 Immature Gran % (Auto) 0.300 Neut % (Auto) 59.7 Lymph % (Auto) 33.5 Towner % (Auto) 5.3 Eos % (Auto) 0.9 Baso % (Auto) 0.3 Absolute Neuts (auto) 7.0 Absolute Lymphs (auto) 3.95 Nucleated RBC % 0 Sodium 138 Potassium 3.7 Chloride 107 Carbon Dioxide 24.0 Anion Gap 7 BUN 10 Creatinine 0.71 Est GFR (MDRD) Af Amer 130 Est GFR (MDRD) Non-Af 108 BUN/Creatinine Ratio 14.2 Glucose 100 Calcium 8.5 Total Bilirubin 0.40 AST 10 L ALT 22 Alkaline Phosphatase 71 Total Protein 7.3 Albumin 3.0 L Globulin 4.3 H Albumin/Globulin Ratio 0.7 L Lipase 25 Serum , Qual P Urine Color Yellow Urine Clarity Sl. Cloudy Urine pH 6.5 Ur Specific [place] 1.020 Urine Protein Negative Urine Glucose (UA) 100 H Urine Ketones Negative Urine Occult Blood Negative Urine Nitrite Negative Urine Bilirubin Negative Urine Urobilinogen Normal Ur Leukocyte Esterase 25 H Urine RBC 0 SEEN Urine WBC 0-5 SEEN Ur Squamous Epith Cells 10-25 SEEN Urine Bacteria 1+ Urine Mucus 0 SEEN Radiography Diagnostic Testing: Clinical Impression(s) from Imaging Studies Abdomen Ultrasound 10/28/23 21:16 IMPRESSION: Cholelithiasis with nonspecific positive sonographic Mendoza''s. No other secondary evidence of cholecystitis. Nuclear medicine hepatobiliary scan could further evaluate as clinically indicated. Small right renal cyst. Electronically Signed: González Almanza MD at 22:31 EDT , Discharge Plan Triage Chief Complaint: Abd Pain ED Provider: Dylon Downey Dx/Rx/DC Orders Clinical Impression: Abdominal pain, , Cholelithiasis Prescriptions: New famotidine [Pepcid] 20 mg tablet 20 mg PO BID Qty: 60 0RF cephalexin 500 mg capsule 500 mg PO BID 5 Days Qty: 10 0RF No Action sumatriptan succinate 50 mg tablet 50 mg PO PRN PRN (Reason: migraine headache) Patient Comments: Take 1 tablet by mouth Once as needed for migraine. May repeat after 2 hours. insulin glargine [Lantus Solostar U-100 Insulin] 100 unit/mL (3 mL) insulin pen 14 unit subcut QPM (DME) FreeStyle Shobha 2 Sensor Kit See Rx Instructions .Route Rx Instructions: As directed PNV no.[id number] 400 mcg-35 mg- 25 mg-5 mg tablet,chewable PO albuterol sulfate 90 mcg/actuation HFA aerosol inhaler 2 puff INHALATION Q6H PRN (Reason: wheezing) Patient Comments: inhale 2 puffs by mouth and INTO THE LUNGS every 6 hours if needed for wheezing ondansetron 4 mg tablet,disintegrating 4 mg PO TID PRN (Reason: nausea and vomiting) Qty: 21 1RF cyclobenzaprine 10 mg tablet 10 mg PO TID PRN (Reason: Muscle Spasm) Qty: 20 0RF (DME) pen needle, diabetic [Ultra-Thin II Ins Pen [place]] 29 gauge x 1/2 needle See Rx Instructions .Route Qty: 100 1RF Rx Instructions: As directed for DMII (E11.9); Z34.90 glycopyrrolate 2 mg tablet 2 mg PO DAILY Qty: 30 2RF lansoprazole 15 mg capsule,delayed release(DR/EC) 15 mg PO DAILY 30 Days Qty: 30 12RF Rx Instructions: Take one tablet by mouth daily insulin regular human 100 unit/mL (3 mL) insulin pen 15 unit subcut TID Qty: 15 6RF Primary Care Provider: Hilary Marie Referrals: Hilary Marie MD [Primary Care Provider] - Rafael Bear MD [Med Staff - Active Staff] - Activity Restrictions/Additional Instructions: Follow-up with the general surgery team Dr. Bear in the outpatient setting. D iscuss with your INTELLIGENCE SPECIALIST on your antiacid for your reflux as discussed here. Follow-up on your urine culture with your INTELLIGENCE SPECIALIST on Wednesday. Take antibiotics as prescribed. Return with worsening symptoms or other concerns. Print Language: Armenian Disposition Disposition: Home, Self Care
[2023-10-28 22:21] LABS: Pregnancy, Serum, hCG Quali. P Negative
[2023-10-28 22:39] LABS: Mucous, Urine 0 SEEN /hpf (<or=2+); Red Blood Cells-Urine 0 SEEN /hpf (0-5)
[2023-10-28 22:45] LABS: Color, Urine Yellow (Yellow); Glucose, Dipstick 100 mg/dl (Normal); Ketone-Dipstick Negative (Negative); Leukocyte Esterase-Dipstick 25 /ul (Negative); Nitrite-Dipstick Negative (Negative); Occult Blood-Urine Negative /ul (Negative); Protein-Dipstick Negative (Negative); Urine Bilirubin Dipstick Negative (Negative); Urine Clarity Sl. Cloudy (Clear); Urine Urobilinogen Normal (Normal); Urine pH 6.5 (5.0 - 8.0)
[2023-10-28 23:01] LABS: Bacteria 1+ /hpf (None Seen); Squamous Epithelial Cells - UA 10-25 SEEN /hpf (5-10); White Blood Cells 0-5 SEEN /hpf (0-5)
[2023-10-28] MEDS: Cephalexin 250 MG Capsule 500 MG PO (23:28)
[2023-10-28 23:31] VITALS: BP 121/69; PULSE 85; RESP 16; TEMP 36.6; O2SAT 97
== END 2023-10-28 23:32 | disposition home or self-care (01) ==
PROVIDERS: Emergency Provider Emergency Medicine; PCP Internal Medicine; Visit Provider Emergency Medicine
DX: O99.891 Other specified diseases and conditions complicating pregnancy (principal); E11.9 Type 2 diabetes mellitus without complications; K80.20 Calculus of gallbladder without cholecystitis without obstruction; Z3A.15 15 weeks gestation of pregnancy; R10.9 Unspecified abdominal pain; K21.9 Gastro-esophageal reflux disease without esophagitis; O99.512 Diseases of the respiratory system complicating pregnancy, second trimester; J45.909 Unspecified asthma, uncomplicated; O99.612 Diseases of the digestive system complicating pregnancy, second trimester; O99.282 Endocrine, nutritional and metabolic diseases complicating pregnancy, second trimester
CPT/HCPCS: 76705; 80053; 81001; 83690; 84703; 85025; 87086; 87088; 99282

== ENCOUNTER 2023-11-25 20:41 | Emergency (ER) | payer MEDICAID, SELFPAY ==
[2023-11-25 20:41] VITALS: BP 131/82; PULSE 93; RESP 16; TEMP 36.8; O2SAT 98; BMI 43.0
[2023-11-25 22:43] LABS: Bacteria 0 SEEN /hpf (None Seen); Mucous, Urine 0 SEEN /hpf (<or=2+); Red Blood Cells-Urine 0 SEEN /hpf (0-5); Squamous Epithelial Cells - UA 0 SEEN /hpf (5-10)
[2023-11-25 22:47] LABS: Color, Urine Yellow (Yellow); Glucose, Dipstick Normal (Normal); Ketone-Dipstick Negative (Negative); Leukocyte Esterase-Dipstick 100 /ul (Negative); Nitrite-Dipstick Negative (Negative); Occult Blood-Urine Negative /ul (Negative); Protein-Dipstick Negative (Negative); Specific Gravity, Urine 1.015 (1.002-1.030); Urine Bilirubin Dipstick Negative (Negative); Urine Clarity Clear (Clear); Urine Urobilinogen Normal (Normal); Urine pH 6.5 (5.0 - 8.0)
--- NOTE | 2023-11-25 22:51 | US_ITS ---
STUDY: ABDOMINAL ULTRASOUND - RIGHT UPPER QUADRANT REASON FOR VISIT: Female, 23 years old right upper quadrant pain, 19 week TECHNIQUE: Grayscale and color Doppler imaging of the right upper quadrant was performed. COMPARISON: None. FINDINGS: Liver: There is normal echogenicity of the liver. No focal lesion seen. Enlarged to 19.7 cm. Gallbladder: Multiple shadowing gallstones without wall thickening or pericholecystic fluid. Sonographic Mendoza''s sign reported negative. Common Bile Duct: The common bile duct measures 4 mm. This is within normal limits for patients age. Pancreas: Largely obscured by overlying bowel gas. Right Kidney: Measures 12.6 cm. No hydronephrosis is seen. 16mm lower pole cyst. OTHER: No free fluid. US/Gallbladder IMPRESSION: Cholelithiasis without sonographic findings of acute cholecystitis. Hepatomegaly. Electronically Signed: Ian Cesar MD at 0:10 EDT ,
[2023-11-25 22:53] VITALS: BP 122/84; PULSE 97; RESP 18; O2SAT 100
[2023-11-25 23:00] LABS: White Blood Cells 0-5 SEEN /hpf (0-5)
[2023-11-25] MEDS: 0.9% Normal Saline (1000mL) 1,000 ML 999 ML IV (23:59)
[2023-11-25] MEDS: Ondansetron 4 MG/2 ML Vial IV (23:59)
[2023-11-26] VITALS: BP 127/78; PULSE 80; RESP 18; O2SAT 98
[2023-11-26 00:06] LABS: Absolute Lymphocyte Count 3.89 X10^3/uL (0.83-4.51); Absolute Neutrophil Count 7.5 X10^3/uL (2.0-7.7); Basophil# 0.03 X10^3/uL; Basophil% 0.2 % (0-1); Eosinophil# 0.09 X10^3/uL; Eosinophils% 0.7 % (0-5); Hematocrit 37.2 % (37-47); Lymphocyte # 3.89 X10^3/ul (0.83-4.51); Lymphocyte % 30.7 % (19-41); Mean Corp Hgb Conc 32.3 g/dL (32-36); Mean Corpuscular Volume 83.6 fL (81-99); Mean Platelet Vol. 11.9 fl (6.2-12.0); Monocyte# 0.99 X10^3/uL; Monocyte% 7.8 % (0-10); NRBC Flagged by Analyzer 0 % (0-5); Neutrophil # 7.46 X10^3/uL (2.7-7.7); Neutrophil % 58.9 % (47-70); Platelet Count 246 K/mm3 (150-450); RBC Distribution Width CV 14.5 % (11.6-14.6); Red Blood Count 4.45 M/mm3 (4.2-5.4); White Blood Count 12.7 K/mm3 (4.4-11.0)
[2023-11-26 00:22] LABS: AST(SGOT) 17 U/L (15-37); Alanine Aminotransfer ALT/SGPT 22 U/L (13-56); Albumin, Serum 2.6 g/dL (3.2-5.0); Alkaline Phosphatase 63 U/L (45-117); Anion Gap 5 (5-15); BUN 13 mg/dL (7-18); BUN/Creat Ratio 26.4 RATIO (10-20); Bilirubin, Direct 0.12 mg/dL (0.00-0.30); Calcium,Total 8.8 mg/dL (8.5-10.1); Chloride 108 mmol/L (98-107); Creatinine, Serum 0.49 mg/dL (0.55-1.02); EST Glomerular Filtration Rate 163 mL/min (>60); Est Glom Filt Rate - Afr Amer 197 mL/min (>60); Estimated Creatinine Clearance 234.83 ml/min; Globulin 4.1 g/dL (2.2-4.2); Glucose 93 mg/dL (74-106); Lipase 25 U/L (13-75); Magnesium 1.5 mg/dL (1.6-2.6); Potassium 3.6 mmol/L (3.5-5.1); Protein, Total 6.7 g/dL (6.4-8.2); Sodium Level 137 mmol/L (136-145)
--- NOTE | 2023-11-26 00:58 | EX.ED.DYSGE1 ---
HPI History of Present Illness Chief Complaint: Nausea/Vomiting Informant: patient and spouse/S.O. Narrative Narrative: Patient is a 23-year-old female with history of diabetes as well as cholelithiasis who is currently . She states that this evening after eating dinner a few hours later worsening with bouts of abdominal pain more in the right upper quadrant and nausea vomiting. She denies any fevers or chills diarrhea or dysuria vaginal bleeding or discharge. She states she is unsure if this is related to her or potentially due to gallbladder dysfunction and secondary to this comes in for evaluation [facility] Medical History Seasonal allergies Wears glasses Depression Anxiety Dietary restriction Gastric reflux Non-smoker Shortness of breath on exertion Leg cramps Migraine Cholelithiasis Diabetes GERD (gastroesophageal reflux disease) CPAP (continuous positive airway pressure) dependence Sleep apnea Asthma Home Medications ?Medication ?Instructions ?Recorded ?Last Taken ?Type albuterol sulfate 90 mcg/actuation 2 puff inhalation Q6H PRN wheezing 12/03/22 Unknown History aerosol inhaler sumatriptan succinate 50 mg tablet 50 mg PO PRN PRN migraine headache 12/17/22 Unknown History ondansetron 4 mg disintegrating 4 mg PO TID PRN nausea and 12/26/22 Unknown Rx tablet vomiting #21 tabs pen needle, diabetic 29 gauge x #100 ea 08/18/23 Unknown Rx 1/2 (Ultra-Thin II Insulin Pen [place]) cyclobenzaprine 10 mg tablet 10 mg PO TID PRN Muscle Spasm #20 09/20/23 Unknown Rx TABLETS flash glucose sensor (FreeStyle 09/28/23 Unknown History Shobha 2 Sensor kit) lansoprazole 15 mg capsule,delayed 15 mg PO DAILY 1 month #30 caps 10/11/23 Unknown Rx release famotidine 20 mg tablet (Pepcid) 20 mg PO BID #60 tabs 10/28/23 Unknown Rx PNV 153-FA 400 mcg-om3 35 mg-dha 1 tab PO DAILY 90 days #90 tabs 11/09/23 Unknown Rx 25 mg-epa 5 mg-fish oil chew tablet glycopyrrolate 2 mg tablet 2 mg PO DAILY #30 tabs 11/16/23 Unknown Rx aspirin 81 mg tablet,delayed 81 mg PO DAILY 11/25/23 Unknown History release magnesium oxide 400 mg (241.3 mg 400 mg PO DAILY 11/25/23 Unknown History magnesium) tablet insulin glargine 100 unit/mL (3 35 unit subcut QHS 11/26/23 Unknown History mL) subcutaneous pen (Lantus Solostar U-100 Insulin) insulin regular human 100 unit/mL 1 unit subcut TID 11/26/23 Unknown History (3 mL) subcutaneous pen Allergy/AdvReac Type Severity Reaction Status Date / Time cetirizine (From [facility]) Allergy Severe Angioedema Verified 11/25/23 20:45 prednisone Allergy Severe Swelling Verified 11/25/23 20:45 adhesive tape Allergy Intermediate Rash Verified 11/25/23 20:45 latex Allergy Intermediate Swelling Verified 11/25/23 20:45 CONTROLL Allergy Intermediate Swelling Uncoded 11/03/23 14:29 Family History Mother Asthma Diabetes Hypertension High cholesterol Congestive heart failure Arthritis Anxiety and depression CVA (cerebral vascular accident) History of recurrent miscarriages Father Arthritis Surgical History History of esophagogastroduodenoscopy (EGD) No history of previous surgery Social History adopted: No household members: spouse current occupational status: employed current occupation: [employer] pets and animals: No history of recent travel: No sexually active: Yes Smoking Status: Never smoker Electronic Cigarette Use: not used alcohol intake: never substance use type: does not use well-balanced diet: about half the time caffeine: Yes (2) Type: coffee and tea eating out: 1-3 times/week during the past year weight has: increased > 10 lbs frequency: does not exercise fred/tenriism: Congregation seatbelt use: always do you feel safe at home: Yes additional social history: Tyree LEE ROSA ED Constitutional Constitutional ED: Denies chills or fever(s) ENT ENT ED: Denies sore throat Cardiovascular Cardiovascular: Denies chest pain Respiratory/Chest Respiratory/Chest: Denies cough or dyspnea Gastrointestinal Gastrointestinal: Reports abdominal pain, nausea and vomiting; Denies diarrhea Genitourinary Genitourinary ED: Denies dysuria or hematuria Musculoskeletal Musculoskeletal: Denies back pain or myalgias Integumentary Denies rash Neurologic Neurologic: Denies headache(s) Hematologic/Lymphatic Hematologic/Lymphatic: Denies easy bleeding or easy bruising EXAM Physical Exam Const Vital Signs: 11/25/23 20:41 11/25/23 22:53 11/26/23 00:00 Temperature 98.3 F Temperature Source Temporal Pulse Rate 93 97 80 Respiratory Rate 16 18 18 Blood Pressure 131/82 H 122/84 H 127/78 H Blood Pressure Mean 98 96 94 Pulse Ox 98 100 98 Oxygen Delivery Method Room Air Room Air Room Air Positive well nourished, well developed and obese General Appearance ED: well developed; Negative for pallor Nutritional Appearance: obese HEENT Reports moist mucous membranes HEENT Narrative: No tongue or lip swelling no oral lesions no airway edema or compromise No secondary findings in the posterior pharynx to suggest infection Eyes PERRL and EOMs intact bilaterally General Eye ED: Negative for scleral icterus Neck supple Resp normal respiratory effort and clear to auscultation bilaterally Cardio regular rate and regular rhythm GI non-distended and no masses GI Narrative: Mild pain on palpation in the epigastric and right upper quadrant without voluntary guarding or rigidity. Negative Mendoza sign Auscultation: normoactive bowel sounds Palpation: soft Back/Spine no CVA tenderness Extremity normal to inspection Neuro oriented x3, CN's II-XII intact bilaterally and no sensory deficits noted Sensorium / Orientation: alert Motor Exam: strength 5/5 throughout Psych mental status grossly normal Skin no rashes or lesions noted, no wounds and skin turgor normal General Skin Exam: Negative for jaundice or pallor MDM MDM MDM Narrative Medical decision making narrative: Patient arrived to the ER with normal vitals and a soft nonsurgical abdomen. She reported bouts of nausea and vomiting after eating but is currently and is unsure if this is related to hyperemesis gravidarum versus biliary colic versus cholecystitis versus pancreatitis versus viral stomach infection such as norovirus or rotavirus. Secondary to this basic labs were obtained. Labs revealed no clinically significant findings and ultrasound revealed gallstones without signs of acute cholecystitis. After receiving medication in the ER she had no bouts of vomiting and at this time with stable vitals negative workup normal heart tones and ultrasound showing no signs of gallbladder infection there is no need for admission and she is otherwise safe for discharge History & Record Review Discussion w/independent historian: Patient and Significant other Lab Data Attestation: I reviewed the patient's lab results. Labs: Laboratory Results - last 24 hr 11/25/23 11/25/23 11/25/23 21:20 22:37 23:57 WBC 12.7 H RBC 4.45 Hgb 12.0 Hct 37.2 MCV 83.6 MCH 27.0 MCHC 32.3 RDW Std Deviation 44.0 H RDW Coeff of Elmo 14.5 Plt Count 246 MPV 11.9 Immature Gran % (Auto) 1.700 H Neut % (Auto) 58.9 Lymph % (Auto) 30.7 Hardy % (Auto) 7.8 Eos % (Auto) 0.7 Baso % (Auto) 0.2 Absolute Neuts (auto) 7.5 Absolute Lymphs (auto) 3.89 Nucleated RBC % 0 Sodium 137 Potassium 3.6 Chloride 108 H Carbon Dioxide 24.0 Anion Gap 5 BUN 13 Creatinine 0.49 L Estim Creat Clear Calc 234.83 Est GFR (MDRD) Af Amer 197 Est GFR (MDRD) Non-Af 163 BUN/Creatinine Ratio 26.4 H Glucose 93 Calcium 8.8 Magnesium 1.5 L Total Bilirubin 0.40 Direct Bilirubin 0.12 AST 17 ALT 22 Alkaline Phosphatase 63 Total Protein 6.7 Albumin 2.6 L Globulin 4.1 Lipase 25 Urine Color Yellow Urine Clarity Clear Urine pH 6.5 Ur Specific [place] 1.015 Urine Protein Negative Urine Glucose (UA) Normal Urine Ketones Negative Urine Occult Blood Negative Urine Nitrite Negative Urine Bilirubin Negative Urine Urobilinogen Normal Ur Leukocyte Esterase 100 H Urine RBC 0 SEEN Urine WBC 0-5 SEEN Ur Squamous Epith Cells 0 SEEN Urine Bacteria 0 SEEN Urine Mucus 0 SEEN Radiography Diagnostic Testing: Clinical Impression(s) from Imaging Studies Gallbladder Ultrasound 11/25/23 22:51 IMPRESSION: Cholelithiasis without sonographic findings of acute cholecystitis. Hepatomegaly. Electronically Signed: Ian Cesar MD at 0:10 EDT , Discharge Plan Triage Chief Complaint: Nausea/Vomiting ED Provider: Juan Grmim Dx/Rx/DC Orders Clinical Impression: Nausea & vomiting, , Cholelithiasis, GERD (gastroesophageal reflux disease), Type 1 diabetes mellitus affecting in first trimester, antepartum Instructions: ED Hyperemesis Gravidarum, ED Abd Pain Preg Gallstones Prescriptions: No Action sumatriptan succinate 50 mg tablet 50 mg PO PRN PRN (Reason: migraine headache) Patient Comments: Take 1 tablet by mouth Once as needed for migraine. May repeat after 2 hours. (DME) FreeStyle Shobha 2 Sensor Kit See Rx Instructions .Route Rx Instructions: As directed albuterol sulfate 90 mcg/actuation HFA aerosol inhaler 2 puff INHALATION Q6H PRN (Reason: wheezing) Patient Comments: inhale 2 puffs by mouth and INTO THE LUNGS every 6 hours if needed for wheezing ondansetron 4 mg tablet,disintegrating 4 mg PO TID PRN (Reason: nausea and vomiting) Qty: 21 1RF cyclobenzaprine 10 mg tablet 10 mg PO TID PRN (Reason: Muscle Spasm) Qty: 20 0RF famotidine [Pepcid] 20 mg tablet 20 mg PO BID Qty: 60 0RF aspirin 81 mg tablet,delayed release (DR/EC) 81 mg PO DAILY magnesium oxide 400 mg (241.3 mg magnesium) tablet 400 mg PO DAILY (DME) pen needle, diabetic [Ultra-Thin II Ins Pen [place]] 29 gauge x 1/2 needle See Rx Instructions .Route Qty: 100 1RF Rx Instructions: As directed for DMII (E11.9); Z34.90 lansoprazole 15 mg capsule,delayed release(DR/EC) 15 mg PO DAILY 30 Days Qty: 30 12RF Rx Instructions: Take one tablet by mouth daily PNV no.[id number] 400 mcg-35 mg- 25 mg-5 mg tablet,chewable 1 tab PO DAILY 90 Days Qty: 90 4RF glycopyrrolate 2 mg tablet 2 mg PO DAILY Qty: 30 2RF insulin regular human 100 unit/mL (3 mL) insulin pen 1 unit subcut TID Rx Instructions: 24 units in am, 22 units lunch, 22 units pm insulin glargine [Lantus Solostar U-100 Insulin] 100 unit/mL (3 mL) insulin pen 35 unit subcut QHS Primary Care Provider: Hilary Marie Referrals: Hilary Marie MD [Primary Care Provider] - Print Language: Danish Disposition Disposition: Home, Self Care Discharge Date/Time: 11/26/23 01:27
[2023-11-26 01:10] LABS: Bedside Glucose 70 mg/dL (74-106)
[2023-11-26 01:26] VITALS: BP 121/67; PULSE 76; RESP 18; TEMP 36.7; O2SAT 99
== END 2023-11-26 01:27 | disposition home or self-care (01) ==
PROVIDERS: Emergency Provider Emergency Medicine; PCP Internal Medicine; Visit Provider Emergency Medicine
DX: O21.9 Vomiting of pregnancy, unspecified (principal); E10.9 Type 1 diabetes mellitus without complications; K80.20 Calculus of gallbladder without cholecystitis without obstruction; O99.612 Diseases of the digestive system complicating pregnancy, second trimester; O26.612 Liver and biliary tract disorders in pregnancy, second trimester; K21.9 Gastro-esophageal reflux disease without esophagitis; J45.909 Unspecified asthma, uncomplicated; E66.9 Obesity, unspecified; O99.280 Endocrine, nutritional and metabolic diseases complicating pregnancy, unspecified trimester; O99.210 Obesity complicating pregnancy, unspecified trimester; O99.511 Diseases of the respiratory system complicating pregnancy, first trimester; Z3A.00 Weeks of gestation of pregnancy not specified
CPT/HCPCS: 76705; 80048; 80076; 81001; 82962; 83690; 83735; 85025; 96361; 96374; 99283; J7030; A4216; J2405

== ENCOUNTER 2023-12-03 16:58 | Outpatient (CLI) | payer MEDICAID, SELFPAY ==
[2023-12-03 17:16] VITALS: BMI 43.0
[2023-12-03 17:24] VITALS: BP 134/82; PULSE 91; RESP 16; TEMP 36.7; O2SAT 99
[2023-12-03 17:35] LABS: Color, Urine Yellow (Yellow); Glucose, Dipstick Normal (Normal); Ketone-Dipstick Negative (Negative); Leukocyte Esterase-Dipstick 500 /ul (Negative); Nitrite-Dipstick Negative (Negative); Occult Blood-Urine 50 /ul (Negative); Protein-Dipstick 30 mg/dl (Negative); Urine Bilirubin Dipstick Negative (Negative); Urine Clarity Cloudy (Clear); Urine Urobilinogen 1 mg/dl (Normal)
[2023-12-03] MEDS: Nitrofurantoin Macrocrystals 100 MG Capsule PO (18:10)
--- NOTE | 2023-12-03 19:10 | OB.TRI.HP_ITS ---
HPI - General HPI Narrative OZIEL MELGOZA, is a 23 F who presents with urgency and frequent urination, blood with wiping. presented to for well being check and rule out UTI Maternal Data Information PARAMJIT Calculator Estimated Delivery Date Method Current WG Current Estimate 04/20/24 LMP (Certain) 20w 1d Other Estimates 04/19/24 Ultrasound #1 20w 2d PFSH PFSH Medical History Seasonal allergies Wears glasses Depression Anxiety Dietary restriction Gastric reflux Non-smoker Shortness of breath on exertion Leg cramps Migraine Cholelithiasis Diabetes GERD (gastroesophageal reflux disease) CPAP (continuous positive airway pressure) dependence Sleep apnea Asthma Home Medications ?Medication ?Instructions ?Recorded ?Last Taken ?Type albuterol sulfate 90 mcg/actuation 2 puff inhalation Q6H PRN wheezing 12/03/22 Unknown History aerosol inhaler sumatriptan succinate 50 mg tablet 50 mg PO PRN PRN migraine headache 12/17/22 Unknown History ondansetron 4 mg disintegrating 4 mg PO TID PRN nausea and 12/26/22 Unknown Rx tablet vomiting #21 tabs pen needle, diabetic 29 gauge x #100 ea 08/18/23 Unknown Rx 1/2 (Ultra-Thin II Insulin Pen Naylor) flash glucose sensor (FreeStyle 09/28/23 Unknown History Shobha 2 Sensor kit) lansoprazole 15 mg capsule,delayed 15 mg PO DAILY 1 month #30 caps 10/11/23 12/03/23 Rx release famotidine 20 mg tablet (Pepcid) 20 mg PO BID #60 tabs 10/28/23 12/03/23 Rx PNV 153-FA 400 mcg-om3 35 mg-dha 1 tab PO DAILY 90 days #90 tabs 11/09/23 12/02/23 Rx 25 mg-epa 5 mg-fish oil chew tablet glycopyrrolate 2 mg tablet 2 mg PO DAILY #30 tabs 11/16/23 12/03/23 Rx aspirin 81 mg tablet,delayed 81 mg PO DAILY 11/25/23 12/03/23 History release magnesium oxide 400 mg (241.3 mg 400 mg PO DAILY 11/25/23 12/03/23 History magnesium) tablet insulin glargine 100 unit/mL (3 35 unit subcut QHS 11/26/23 12/02/23 History mL) subcutaneous pen (Lantus Solostar U-100 Insulin) insulin regular human 100 unit/mL 1 unit subcut TID 11/26/23 12/03/23 History (3 mL) subcutaneous pen alcohol swabs pad topical diabetes mellitus 12/03/23 Unknown History fluticasone propionate 44 inhalation 12/03/23 12/03/23 History mcg/actuation HFA aerosol inhaler nitrofurantoin 100 mg PO Q12H 7 days #14 caps 12/03/23 Unknown Rx monohydrate/macrocrystals 100 mg capsule (Macrobid) Allergy/AdvReac Type Severity Reaction Status Date / Time cetirizine (From [facility]) Allergy Severe Angioedema Verified 12/03/23 17:16 prednisone Allergy Severe Swelling Verified 12/03/23 17:16 adhesive tape Allergy Intermediate Rash Verified 12/03/23 17:16 latex Allergy Intermediate Swelling Verified 12/03/23 17:16 CONTROLL Allergy Intermediate Swelling Uncoded 11/03/23 14:29 Family History Mother Asthma Diabetes Hypertension High cholesterol Congestive heart failure Arthritis Anxiety and depression CVA (cerebral vascular accident) History of recurrent miscarriages Father Arthritis Surgical History History of esophagogastroduodenoscopy (EGD) No history of previous surgery Social History adopted: No household members: spouse current occupational status: employed current occupation: [employer] pets and animals: No history of recent travel: No sexually active: Yes Smoking Status: Never smoker Electronic Cigarette Use: not used alcohol intake: never substance use type: does not use well-balanced diet: about half the time caffeine: Yes (2) Type: coffee and tea eating out: 1-3 times/week during the past year weight has: increased > 10 lbs frequency: does not exercise oziel/restorationist: Orthodox seatbelt use: always do you feel safe at home: Yes additional social history: Tyree History 1 Elective abortions Hx Para 0 Spontaneous abortions Hx # Term Pregnancies Ectopic pregnancies Hx # Pregnancies Multiple births # of living children Visit Details Expected Delivery Route/Plan Labor Preferences- CB/BF classes: [] labor support person: [] labor intervention preferences: [] pain management options preferred: [] cut cord/dad catch: [] : [] PP control planned: [] discussed possible routes of delivery and associated risks: [] special requests: [] Plans Covid status: [] Flu vaccine: [] Tdap vaccine: [] Rhogam: [] LARC form signed: [] Problem list reviewed and updated with the most current plan of care details and appropriate orders placed. Relevant counseling for the gestational age provided. Continue routine care and follow up unless otherwise noted in visit notes/problem list details OB Flowsheet Initial Weight: Not Recorded Date -?-?-?-?-?-?-?-?-?-?-?-?- EGA Weight BP Urine Prot -?-?-?-?-?-?-?-?-?-?-?-?- Glucose FHR FuHt Pres Dilation -?-?-?-?-?-?-?-?-?-?-?-?- Effaced St Visit Note 10/04/23 -?-?-?-?-?-?-?-?-?-?-?-?- 11w 4d 256 lb 6 oz 119/81 -?-?-?-?-?-?-?-?-?-?-?-?- 181 -?-?-?-?-?-?-?-?-?-?-?-?- JV_ CRL 46 mm an d consistent with LMP. She is a type 1 DM and having glucose levels as high as 300. fasting are around 140's. She is only on lantus 14 units. will increase lantus to 24 for now and patient will send me a log of fasting and 2 hr pp. consulting MFM. pt has yeast infection currently. recommend OTC cream. JV_ CRL 46 mm and consistent with LMP. She is a type 1 DM and having glucose levels as high as 300. fasting are around 140's. She is only on lantus 14 units. will increase lantus to 24 for now and patient will send me a log of fasting and 2 hr pp. consulting MFM. pt has yeast infection currently. recommend OTC cream. desires NIPT and carrier screening. 11/03/23 -?-?-?-?-?-?-?-?-?-?-?-?- 15w 6d 261 lb 2 oz 120/81 Nega tive -?-?-?-?-?-?-?-?-?-?-?-?- Negative 160 -?-?-?-?-?--?-?-?-?-?-?-?- MH-No VB. Brief US to confirm FHT. Not checking glucose QID. Today FBS was 135, 2 hr pp was 218. Wrote out sheet for tracking readings and food. Ref to [facility]. Call 5 days with readings. 11/17/23 -?-?-?-?-?-?-?-?-?-?-?-?- 17w 6d 265 lb 8 oz 121/83 Nega tive -?-?-?-?-?-?-?-?-?-?-?-?- Negative 145 -?-?-?-?-?--?-?-?-?-?-?-?- JV- fasting leve ls are all over 130's- 160's. 2 hr pp are all elevated as high as 180. lantus 24 at bedtime, humalog is 15, 18, 15. increasing lantus to 30, novolog to 20,18,20. has anatomy scan scheduled for next week. will forward a note to [facility] as a heads up. NST FHR Rate Baby A Baseline: 140 Assessment & Plan (1) Hx of recurrent urinary tract infection: COMMENT: follow cx adjust antibiotic based on culture sensitivity if needed (2) UTI (urinary tract infection): COMMENT: follow culture, start macrobid rx consider continued treatment in PLAN: Plan Patient presents for triage evaluation secondary to UTI symptoms and wellbeing check FHT: 140, at 20 weeks Snover: no Contractions Assessment and plan: reassuring maternal and status patient discharged to home to follow-up in office. See problem list details for additional plan information.
== END 2023-12-03 18:15 | disposition home or self-care (01) ==
LOC: WPOUT 17:06 → WP 17:06
PROVIDERS: PCP Internal Medicine; Referring Provider Registered Nurse; Visit Provider Registered Nurse
DX: O23.42 Unspecified infection of urinary tract in pregnancy, second trimester (principal); Z79.4 Long term (current) use of insulin; O99.891 Other specified diseases and conditions complicating pregnancy; K21.9 Gastro-esophageal reflux disease without esophagitis; J45.909 Unspecified asthma, uncomplicated; Z79.899 Other long term (current) drug therapy; Z79.82 Long term (current) use of aspirin; Z87.440 Personal history of urinary (tract) infections; Z3A.20 20 weeks gestation of pregnancy; O99.512 Diseases of the respiratory system complicating pregnancy, second trimester; O99.612 Diseases of the digestive system complicating pregnancy, second trimester
CPT/HCPCS: 81002; 87086; 87088; 99221; G0378

== ENCOUNTER 2024-01-13 17:38 | Emergency (ER) | payer MEDICAID, SELFPAY ==
[2024-01-13 17:39] VITALS: BP 157/90; PULSE 117; RESP 16; TEMP 36.4; O2SAT 97; BMI 45.0
[2024-01-13 17:52] VITALS: O2SAT 93
[2024-01-13] MEDS: Ipratropium/Albuterol Sulfate 3 ML AMPUL.NEB INHALATION (19:03)
[2024-01-13 19:04] VITALS: PULSE 103; RESP 20
[2024-01-13 19:08] LABS: Absolute Lymphocyte Count 1.62 X10^3/uL (0.83-4.51); Basophil# 0.03 X10^3/uL; Basophil% 0.3 % (0-1); Eosinophil# 0.05 X10^3/uL; Eosinophils% 0.5 % (0-5); Hematocrit 37.8 % (37-47); Hemoglobin 12.1 g/dL (12.0-15.0); Lymphocyte # 1.62 X10^3/ul (0.83-4.51); Lymphocyte % 17.5 % (19-41); Mean Corpuscular Hgb 26.9 pg (27.0-32.0); Mean Corpuscular Volume 84.2 fL (81-99); Mean Platelet Vol. 10.7 fl (6.2-12.0); Monocyte# 0.57 X10^3/uL; Monocyte% 6.1 % (0-10); NRBC Flagged by Analyzer 0 % (0-5); Neutrophil # 6.97 X10^3/uL (2.7-7.7); Neutrophil % 75.2 % (47-70); Platelet Count 218 K/mm3 (150-450); RBC Distribution Width CV 13.7 % (11.6-14.6); Red Blood Count 4.49 M/mm3 (4.2-5.4); White Blood Count 9.3 K/mm3 (4.4-11.0)
[2024-01-13 19:28] LABS: Anion Gap 7 (5-15); BUN 8 mg/dL (7-18); Calcium,Total 8.5 mg/dL (8.5-10.1); Chloride 112 mmol/L (98-107); Creatinine, Serum 0.73 mg/dL (0.55-1.02); EST Glomerular Filtration Rate 104 mL/min (>60); Est Glom Filt Rate - Afr Amer 126 mL/min (>60); Estimated Creatinine Clearance 161.71 ml/min; Glucose 94 mg/dL (74-106); Potassium 3.5 mmol/L (3.5-5.1); Sodium Level 139 mmol/L (136-145); Troponin-I HS < 3 pg/mL (3.0-54.0)
[2024-01-13 19:38] VITALS: BP 105/79; PULSE 111; RESP 20; O2SAT 99
[2024-01-13 20:17] VITALS: BP 124/72; PULSE 114; RESP 18; TEMP 37.2; O2SAT 97
== END 2024-01-13 20:17 | disposition home or self-care (01) ==
PROVIDERS: Emergency Provider Emergency Medicine; PCP Internal Medicine; Referring Provider Emergency Medicine; Visit Provider Emergency Medicine
DX: J06.9 Acute upper respiratory infection, unspecified (principal); E11.9 Type 2 diabetes mellitus without complications; R07.9 Chest pain, unspecified; R06.02 Shortness of breath; K21.9 Gastro-esophageal reflux disease without esophagitis; R05.9 Cough, unspecified
CPT/HCPCS: 71046; 80048; 84484; 85025; 87631; 93005; 94640; 99284; A4216

== ENCOUNTER 2024-01-20 17:53 | Emergency (ER) | payer MEDICAID, SELFPAY ==
[2024-01-20] VITALS (7 sets, daily range): BP systolic 115–134; BP diastolic 67–97; PULSE 94–109; RESP 16–18; TEMP 36.3–37.1; O2SAT 98–99; BMI 42.7
[2024-01-20 18:44] LABS: Mucous, Urine 0 SEEN /hpf (<or=2+)
[2024-01-20 18:48] LABS: Color, Urine Amber (Yellow); Glucose, Dipstick Normal (Normal); Ketone-Dipstick 5 mg/dl (Negative); Leukocyte Esterase-Dipstick 500 /ul (Negative); Nitrite-Dipstick Negative (Negative); Occult Blood-Urine Negative /ul (Negative); Protein-Dipstick 30 mg/dl (Negative); Specific Gravity, Urine 1.015 (1.002-1.030); Urine Clarity Sl. Cloudy (Clear); Urine Urobilinogen 12 mg/dl (Normal)
[2024-01-20 18:54] LABS: Urine Bilirubin Dipstick 1 mg/dL (Negative)
[2024-01-20 18:55] LABS: Squamous Epithelial Cells - UA 0-5 SEEN /hpf (5-10)
[2024-01-20 18:56] LABS: Bacteria 2+ /hpf (None Seen); Red Blood Cells-Urine 0-5 SEEN /hpf (0-5)
[2024-01-20 18:57] LABS: White Blood Cells 10-25 SEEN /hpf (0-5)
[2024-01-20] MEDS: 0.9% Normal Saline (1000mL) 1,000 ML 1000 ML IV (19:10)
[2024-01-20] MEDS: Ondansetron 4 MG/2 ML Vial IV ×2 (19:11→21:11)
[2024-01-20 19:32] LABS: Bedside Glucose 85 mg/dL (74-106)
[2024-01-20] MEDS: Cephalexin 250 MG Capsule 500 MG PO (21:11)
== END 2024-01-20 21:24 | disposition home or self-care (01) ==
PROVIDERS: Emergency Provider Emergency Medicine; PCP Internal Medicine; Visit Provider Emergency Medicine
DX: O21.9 Vomiting of pregnancy, unspecified (principal); E11.9 Type 2 diabetes mellitus without complications; F41.9 Anxiety disorder, unspecified; F32.A Depression, unspecified; K21.9 Gastro-esophageal reflux disease without esophagitis; J45.909 Unspecified asthma, uncomplicated; R30.0 Dysuria; O99.891 Other specified diseases and conditions complicating pregnancy; R09.02 Hypoxemia; O99.282 Endocrine, nutritional and metabolic diseases complicating pregnancy, second trimester; O99.512 Diseases of the respiratory system complicating pregnancy, second trimester; O99.612 Diseases of the digestive system complicating pregnancy, second trimester; O99.342 Other mental disorders complicating pregnancy, second trimester; Z3A.27 27 weeks gestation of pregnancy
CPT/HCPCS: 81001; 82962; 87086; 87088; 96361; 96374; 96376; 99283; J7030; A4216; J2405

== ENCOUNTER 2024-01-29 15:42 | Emergency (ER) | payer MEDICAID, SELFPAY ==
[2024-01-29 15:43] VITALS: BP 129/83; PULSE 105; RESP 28; TEMP 36.5; O2SAT 98; BMI 42.9
[2024-01-29 15:46] VITALS: O2SAT 97
--- NOTE | 2024-01-29 16:06 | EDS_ITS ---
HPI History of Present Illness Chief Complaint: Cough Informant: patient Narrative Narrative: G1, P0 at 28 weeks gestation history diabetes asthma 2 history cough and wheeze. Went back to work yesterday found out coworkers had pneumonia and wanted this ruled out. Denies fevers or myalgias. Report intermittent nausea and vomiting last time yesterday. No diarrhea. Currently nauseated. Reported blood glucose was 125 this morning. No urinary symptoms. Reported use inhaler prior to arrival. [facility] Medical History Seasonal allergies Wears glasses Depression Anxiety Dietary restriction Gastric reflux Non-smoker Shortness of breath on exertion Leg cramps Migraine Cholelithiasis Diabetes GERD (gastroesophageal reflux disease) CPAP (continuous positive airway pressure) dependence Sleep apnea Asthma Home Medications ?Medication ?Instructions ?Recorded ?Last Taken ?Type albuterol sulfate 90 mcg/actuation 2 puff inhalation Q6H PRN wheezing 12/03/22 Unknown History aerosol inhaler sumatriptan succinate 50 mg tablet 50 mg PO PRN PRN migraine headache 12/17/22 Unknown History ondansetron 4 mg disintegrating 4 mg PO TID PRN nausea and 12/26/22 Unknown Rx tablet vomiting #21 tabs flash glucose sensor (FreeStyle 09/28/23 Unknown History Shobha 2 Sensor kit) lansoprazole 15 mg capsule,delayed 15 mg PO DAILY 1 month #30 caps 10/11/23 12/03/23 Rx release famotidine 20 mg tablet (Pepcid) 20 mg PO BID #60 tabs 10/28/23 12/03/23 Rx PNV 153-FA 400 mcg-om3 35 mg-dha 1 tab PO DAILY 90 days #90 tabs 11/09/23 12/02/23 Rx 25 mg-epa 5 mg-fish oil chew tablet glycopyrrolate 2 mg tablet 2 mg PO DAILY #30 tabs 11/16/23 12/03/23 Rx aspirin 81 mg tablet,delayed 81 mg PO DAILY 11/25/23 12/03/23 History release magnesium oxide 400 mg (241.3 mg 400 mg PO DAILY 11/25/23 12/03/23 History magnesium) tablet alcohol swabs pad topical diabetes mellitus 12/03/23 Unknown History fluticasone propionate 44 inhalation 12/03/23 12/03/23 History mcg/actuation HFA aerosol inhaler pen needle, diabetic 29 gauge x #100 ea 12/13/23 Unknown Rx 1/2 (Ultra-Thin II Insulin Pen Apison) insulin glargine 100 unit/mL (3 42 unit subcut QHS 12/15/23 Unknown History mL) subcutaneous pen (Lantus Solostar U-100 Insulin) insulin regular human 100 unit/mL 1 unit subcut TID 12/15/23 Unknown History (3 mL) subcutaneous pen promethazine 25 mg tablet 25 mg PO TID PRN headache #60 tabs 12/15/23 Unknown Rx cephalexin 500 mg capsule 500 mg PO Q6H 7 days #28 caps 01/20/24 Unknown Rx ondansetron 4 mg disintegrating 4 mg PO Q6H PRN nausea and 01/20/24 Unknown Rx tablet vomiting #14 tabs dexamethasone 4 mg tablet 4 mg PO X1 #1 TAB 01/29/24 Unknown Rx ondansetron 4 mg disintegrating 4 mg PO Q8H PRN PRN Nausea #10 tabs 01/29/24 Unknown Rx tablet Allergy/AdvReac Type Severity Reaction Status Date / Time cetirizine (From [facility]) Allergy Severe Angioedema Verified 01/29/24 15:43 prednisone Allergy Severe Swelling Verified 01/29/24 15:43 adhesive tape Allergy Intermediate Rash Verified 01/29/24 15:43 latex Allergy Intermediate Swelling Verified 01/29/24 15:43 Family History Mother Asthma Diabetes Hypertension High cholesterol Congestive heart failure Arthritis Anxiety and depression CVA (cerebral vascular accident) History of recurrent miscarriages Father Arthritis Surgical History History of esophagogastroduodenoscopy (EGD) No history of previous surgery Social History adopted: No household members: spouse current occupational status: employed current occupation: [employer] pets and animals: No history of recent travel: No sexually active: Yes Smoking Status: Never smoker Electronic Cigarette Use: not used alcohol intake: never substance use type: does not use well-balanced diet: about half the time caffeine: Yes (2) Type: coffee and tea eating out: 1-3 times/week during the past year weight has: increased > 10 lbs frequency: does not exercise fred/hinduism: Methodist seatbelt use: always do you feel safe at home: Yes additional social history: Tyree LEE ED Constitutional Constitutional ED: Denies chills, fever(s) or sweats Eyes Eyes: Denies change in vision ENT ENT ED: Denies dysphagia or sore throat Cardiovascular Cardiovascular: Denies chest pain, leg edema, palpitations or racing heartbeat Respiratory/Chest Respiratory/Chest: Reports cough, dyspnea and other Details: Wheeze ; Denies dyspnea on exertion Gastrointestinal Gastrointestinal: Reports nausea and vomiting; Denies abdominal pain or diarrhea Genitourinary Genitourinary ED: Denies dysuria, hematuria or urinary frequency Musculoskeletal Musculoskeletal: Denies back pain, extremity pain or neck pain Integumentary Denies rash or wounds Neurologic Neurologic: Denies headache(s), paresthesias or weakness EXAM Physical Exam Const Vital Signs: 01/29/24 15:43 01/29/24 15:46 01/29/24 16:43 Temperature 97.7 F L Temperature Source Oral Pulse Rate 105 H 70 Respiratory Rate 28 H 19 H Respiratory Effort Normal Non-Labored Respiratory Depth Normal Respiratory Pattern Normal Blood Pressure 129/83 H 128/83 H Blood Pressure Mean 98 98 Pulse Ox 98 97 Oxygen Delivery Method Room Air Room Air Room Air 01/29/24 17:00 01/29/24 18:00 01/29/24 18:22 Temperature 98 F Temperature Source Pulse Rate 99 103 H 110 H Respiratory Rate 20 H 17 18 Respiratory Effort Respiratory Depth Respiratory Pattern Blood Pressure 112/59 L 108/66 108/66 Blood Pressure Mean 76 80 80 Pulse Ox 98 97 97 Oxygen Delivery Method Room Air Room Air Positive well nourished and well developed General Appearance ED: well developed and NAD HEENT Reports TM's clear and moist mucous membranes normocephalic and atraumatic Tympanic Membrane ED: Yes TM's clear Eyes EOMs intact bilaterally and conjunctivae normal Eyes Narrative: No posterior pharyngeal erythema. General Eye ED: Yes normal appearance of both eyes Neck no lymphadenopathy and supple General: Negative for tenderness Chest Wall Chest: Negative for tenderness Resp normal respiratory effort and normal air movement Resp Narrative: No wheeze, symmetric breath sounds. Effort and Inspection: symmetric chest movement; Negative for respiratory distress Cardio regular rhythm and no murmurs Rate: tachycardic Peripheral Pulses: pulses 2+ throughout GI normal to inspection, nondistended, normoactive bowel sounds and non-tender Palpation: Negative for guarding or rebound tenderness present Back/Spine no CVA tenderness and no thoracic nor lumbar tenderness Extremity normal to inspection General Extremety ED: Negative for edema or tenderness General Extremity: Negative for edema Neuro oriented x3 and no sensory deficits noted Sensorium / Orientation: awake and alert Skin no rashes or lesions noted and no wounds MDM MDM MDM Narrative Medical decision making narrative: Interventions / MDM: Differential diagnosis: Asthma exacerbation, Diagnosis considered but do not suspect: Pneumonia however x-ray negative. My EKG interpretation: N/A Imaging independently reviewed and interpreted by myself: 2 view chest x-ray: No infiltrates, basilar atelectasis noted. External documents reviewed: N/A Test considered but not ordered:N/A ED course: Patient hypoxic slight tachycardia. No respiratory distress. Declined any viral testing. No active wheezing. She is concerned of pneumonia. Two-view chest x-ray ordered. Diabetes or for blood glucose obtained at 98. Chest x-ray negative. Patient had allergy to prednisone causing throat swellin g. She is on Symbicort at home. She would like to try steroids with dexamethasone was ordered. She was monitored no reactions. Additional dexamethasone repeat in 3 days if needed. She has inhaler at home. All questions were answered. Re-evaluation: stable Disposition discussed with patient/family/significant other: Patient Case discussed with consulting clinician: N/A This note was generated with [employer] dictation software. It may contain incorrect words, spelling, and punctuation that were not noted in checking the note before signing. Radiography Diagnostic Testing: Clinical Impression(s) from Imaging Studies Chest X-Ray 01/29/24 16:30 IMPRESSION: Right basilar atelectasis. Electronically Signed: Preston Corona DO at 17:23 EST Reading Location ID and State: [facility] / MD Tel [phone], Service support , Discharge Plan Triage Chief Complaint: Cough ED Provider: Best Gudino Dx/Rx/DC Orders Clinical Impression: Bronchitis, Asthma exacerbation, Third trimester Instructions: ED Bronchitis, No Antibiotic (Adult), Asthma Prescriptions: New dexamethasone 4 mg tablet 4 mg PO X1 Qty: 1 0RF Rx Instructions: Repeat dose 02/01/2024 if needed ondansetron 4 mg tablet,disintegrating 4 mg PO Q8H PRN PRN (Reason: Nausea) Qty: 10 0RF No Action sumatriptan succinate 50 mg tablet 50 mg PO PRN PRN (Reason: migraine headache) Patient Comments: Take 1 tablet by mouth Once as needed for migraine. May repeat after 2 hours. (DME) FreeStyle Shobha 2 Sensor Kit See Rx Instructions .Route Rx Instructions: As directed promethazine 25 mg tablet 25 mg PO TID PRN (Reason: headache) Qty: 60 0RF albuterol sulfate 90 mcg/actuation HFA aerosol inhaler 2 puff INHALATION Q6H PRN (Reason: wheezing) Patient Comments: inhale 2 puffs by mouth and INTO THE LUNGS every 6 hours if needed for wheezing ondansetron 4 mg tablet,disintegrating 4 mg PO TID PRN (Reason: nausea and vomiting) Qty: 21 1RF ondansetron 4 mg tablet,disintegrating 4 mg PO Q6H PRN (Reason: nausea and vomiting) Qty: 14 0RF cephalexin 500 mg capsule 500 mg PO Q6H 7 Days Qty: 28 0RF famotidine [Pepcid] 20 mg tablet 20 mg PO BID Qty: 60 0RF aspirin 81 mg tablet,delayed release (DR/EC) 81 mg PO DAILY magnesium oxide 400 mg (241.3 mg magnesium) tablet 400 mg PO DAILY fluticasone propionate 44 mcg/actuation HFA aerosol inhaler inhalation alcohol swabs Pads, Medicated topical lansoprazole 15 mg capsule,delayed release(DR/EC) 15 mg PO DAILY 30 Days Qty: 30 12RF Rx Instructions: Take one tablet by mouth daily PNV [id number] 400 mcg-35 mg- 25 mg-5 mg tablet,chewable 1 tab PO DAILY 90 Days Qty: 90 4RF glycopyrrolate 2 mg tablet 2 mg PO DAILY Qty: 30 2RF (DME) pen needle, diabetic [Ultra-Thin II Ins Pen Apison] 29 gauge x 1/2 needle See Rx Instructions .Route Qty: 100 1RF Rx Instructions: As directed for DMII (E11.9); Z34.90 insulin glargine [Lantus Solostar U-100 Insulin] 100 unit/mL (3 mL) insulin pen 42 unit subcut QHS insulin regular human 100 unit/mL (3 mL) insulin pen 1 unit subcut TID Rx Instructions: 22 units in am, 22 units lunch, 26 units pm Primary Care Provider: Hilary Marie Referrals: Hilary Marie MD [Primary Care Provider] - 1 Week Activity Restrictions/Additional Instructions: Chest x-ray negative. heart tones 138. Repeat steroids if needed. Continue with your inhaler. Continue oral fluids for hydration. Zofran as needed. Follow-up with your doctor. Print Language: [place] Korean Disposition Disposition: Home, Self Care Discharge Date/Time: 01/29/24 18:23
[2024-01-29] MEDS: Ondansetron ODT 4 MG Tablet PO (16:16)
--- NOTE | 2024-01-29 16:30 | RAD_ITS ---
INDICATION: cough EXAMINATION/TECHNIQUE: X-RAY - XR Chest 2 Views COMPARISON: January 13, 2024 FINDINGS: LINES/DEVICES: None. LUNGS: No consolidation, edema or effusion. Right basilar atelectasis. No pneumothorax. MEDIASTINUM AND CARDIOVASCULAR STRUCTURES: Cardiac silhouette not enlarged. Central airways and mediastinal contour are unremarkable. BONES AND SOFT TISSUES: Unremarkable. RAD/Chest PA and Lateral IMPRESSION: Right basilar atelectasis. Electronically Signed: Preston Corona DO at 17:23 EST ,
[2024-01-29 16:43] VITALS: BP 128/83; PULSE 70; RESP 19; O2SAT 97
[2024-01-29 17:00] VITALS: BP 112/59; PULSE 99; RESP 20; O2SAT 98
[2024-01-29] MEDS: dexAMETHasone 4 MG Tablet PO (17:51)
[2024-01-29 18:00] VITALS: BP 108/66; PULSE 103; RESP 17; O2SAT 97
[2024-01-29 18:22] VITALS: BP 108/66; PULSE 110; RESP 18; TEMP 36.6; O2SAT 97
[2024-01-30 00:36] LABS: Bedside Glucose 98 mg/dL (74-106)
== END 2024-01-29 18:23 | disposition home or self-care (01) ==
PROVIDERS: Emergency Provider Emergency Medicine; PCP Internal Medicine; Visit Provider Emergency Medicine
DX: O99.513 Diseases of the respiratory system complicating pregnancy, third trimester (principal); E11.9 Type 2 diabetes mellitus without complications; J45.901 Unspecified asthma with (acute) exacerbation; K21.9 Gastro-esophageal reflux disease without esophagitis; Z3A.00 Weeks of gestation of pregnancy not specified; O99.283 Endocrine, nutritional and metabolic diseases complicating pregnancy, third trimester; O99.613 Diseases of the digestive system complicating pregnancy, third trimester
CPT/HCPCS: 71046; 82962; 99282

== ENCOUNTER → 2024-02-02 | Outpatient (CLI) | payer MEDICAID, SELFPAY ==
[2024-02-02 16:26] LABS: Absolute Lymphocyte Count 3.89 X10^3/uL (0.83-4.51); Absolute Neutrophil Count 7.6 X10^3/uL (2.0-7.7); Basophil# 0.03 X10^3/uL; Basophil% 0.2 % (0-1); Eosinophils% 0.8 % (0-5); Hematocrit 37.5 % (37-47); Hemoglobin 12.2 g/dL (12.0-15.0); Lymphocyte # 3.89 X10^3/ul (0.83-4.51); Lymphocyte % 31.7 % (19-41); Mean Corp Hgb Conc 32.5 g/dL (32-36); Mean Corpuscular Hgb 27.2 pg (27.0-32.0); Mean Corpuscular Volume 83.7 fL (81-99); Mean Platelet Vol. 10.9 fl (6.2-12.0); Monocyte# 0.62 X10^3/uL; NRBC Flagged by Analyzer 0 % (0-5); Neutrophil # 7.56 X10^3/uL (2.7-7.7); Neutrophil % 61.6 % (47-70); Platelet Count 337 K/mm3 (150-450); RBC Distribution Width CV 13.4 % (11.6-14.6); RBC Distribution Width SD 40.7 fl (35.1-43.9); Red Blood Count 4.48 M/mm3 (4.2-5.4); White Blood Count 12.3 K/mm3 (4.4-11.0)
[2024-02-02 17:06] LABS: HIV - WCH Non-Reactive (Nonreactive); Syphilis Antibodies Non-reactive
== END | disposition home or self-care (01) ==
LOC: BWCLAB 14:29
PROVIDERS: Advanced Practice Midwife; PCP Internal Medicine; Referring Provider Obstetrics & Gynecology; Visit Provider Obstetrics & Gynecology
DX: O09.92 Supervision of high risk pregnancy, unspecified, second trimester (principal); Z3A.00 Weeks of gestation of pregnancy not specified
CPT/HCPCS: 36415; 85025; 86703; 86780; 86850; 86900; 86901

== ENCOUNTER 2024-02-22 00:19 | Emergency (ER) | payer MEDICAID, SELFPAY ==
[2024-02-22 00:19] VITALS: BP 143/95; PULSE 95; RESP 22; TEMP 36.1; O2SAT 97; BMI 44.7
--- NOTE | 2024-02-22 00:22 | ED.RN ---
DR. MALAVE NOTIFIED OF PT. SYMPTOMS AND BLOOD PRESSURE.
--- NOTE | 2024-02-22 02:03 | EDS_ITS ---
HPI History of Present Illness Chief Complaint: Back Informant: patient and spouse/S.O. Narrative Narrative: G1, P0 31 week and [address] Kimbrough presents increasing low back pain after coughing episode. Been having upper respiratory cough for the past few weeks. Was seen few weeks ago negative chest x-ray. She has been using Lidoderm patches and Tylenol. Today with a cough increasing spasms spot emergency department. Her blood pressure elevated 143/95 on arrival. No headaches no chest pain no shortness of breath. Mild leg swelling with her . No urinary symptoms. Currently while in the ED symptoms have subsided. Denies any complications this other than the normal morning nausea. [facility] Medical History Seasonal allergies Wears glasses Depression Anxiety Dietary restriction Gastric reflux Non-smoker Shortness of breath on exertion Leg cramps Migraine Cholelithiasis Diabetes GERD (gastroesophageal reflux disease) CPAP (continuous positive airway pressure) dependence Sleep apnea Asthma Home Medications ?Medication ?Instructions ?Recorded ?Last Taken ?Type sumatriptan succinate 50 mg tablet 50 mg PO PRN PRN migraine headache 12/17/22 Unknown History ondansetron 4 mg disintegrating 4 mg PO TID PRN nausea and 12/26/22 Unknown Rx tablet vomiting #21 tabs flash glucose sensor (FreeStyle 09/28/23 Unknown History Shobha 2 Sensor kit) lansoprazole 15 mg capsule,delayed 15 mg PO DAILY 1 month #30 caps 10/11/23 12/03/23 Rx release famotidine 20 mg tablet (Pepcid) 20 mg PO BID #60 tabs 10/28/23 12/03/23 Rx PNV 153-FA 400 mcg-om3 35 mg-dha 1 tab PO DAILY 90 days #90 tabs 11/09/23 12/02/23 Rx 25 mg-epa 5 mg-fish oil chew tablet glycopyrrolate 2 mg tablet 2 mg PO DAILY #30 tabs 11/16/23 12/03/23 Rx aspirin 81 mg tablet,delayed 81 mg PO DAILY 11/25/23 12/03/23 History release magnesium oxide 400 mg (241.3 mg 400 mg PO DAILY 11/25/23 12/03/23 History magnesium) tablet alcohol swabs pad topical diabetes mellitus 12/03/23 Unknown History fluticasone propionate 44 inhalation 12/03/23 12/03/23 History mcg/actuation HFA aerosol inhaler pen needle, diabetic 29 gauge x #100 ea 12/13/23 Unknown Rx 1/2 (Ultra-Thin II Insulin Pen [place]) insulin glargine 100 unit/mL (3 42 unit subcut QHS 12/15/23 Unknown History mL) subcutaneous pen (Lantus Solostar U-100 Insulin) insulin regular human 100 unit/mL 1 unit subcut TID 12/15/23 Unknown History (3 mL) subcutaneous pen promethazine 25 mg tablet 25 mg PO TID PRN headache #60 tabs 12/15/23 Unknown Rx cephalexin 500 mg capsule 500 mg PO Q6H 7 days #28 caps 01/20/24 Unknown Rx ondansetron 4 mg disintegrating 4 mg PO Q6H PRN nausea and 01/20/24 Unknown Rx tablet vomiting #14 tabs dexamethasone 4 mg tablet 4 mg PO X1 #1 TAB 01/29/24 Unknown Rx ondansetron 4 mg disintegrating 4 mg PO Q8H PRN PRN Nausea #10 tabs 01/29/24 Unknown Rx tablet albuterol sulfate 90 mcg/actuation 2 puff inhalation Q4H PRN wheezing 02/07/24 Unknown Rx aerosol inhaler #8.5 grams fluticasone propionate 44 2 puff inhalation BID #10.6 grams 02/08/24 Unknown Rx mcg/actuation HFA aerosol inhaler cephalexin 500 mg capsule 500 mg PO Q12 #10 CAPSULES 02/22/24 Unknown Rx Allergy/AdvReac Type Severity Reaction Status Date / Time cetirizine (From [facility]) Allergy Severe Angioedema Verified 02/16/24 13:43 prednisone Allergy Severe Swelling Verified 02/16/24 13:43 adhesive tape Allergy Intermediate Rash Verified 02/16/24 13:43 latex Allergy Intermediate Swelling Verified 02/16/24 13:43 Family History Mother Asthma Diabetes Hypertension High cholesterol Congestive heart failure Arthritis Anxiety and depression CVA (cerebral vascular accident) History of recurrent miscarriages Father Arthritis Surgical History History of esophagogastroduodenoscopy (EGD) No history of previous surgery Social History adopted: No household members: spouse current occupational status: employed current occupation: [employer] pets and animals: No history of recent travel: No sexually active: Yes Smoking Status: Never smoker Electronic Cigarette Use: not used alcohol intake: never substance use type: does not use well-balanced diet: about half the time caffeine: Yes (2) Type: coffee and tea eating out: 1-3 times/week during the past year weight has: increased > 10 lbs frequency: does not exercise fred/islam: Religious seatbelt use: always do you feel safe at home: Yes additional social history: Ty[facility] LEE ED Constitutional Constitutional ED: Denies chills, fever(s) or sweats Eyes Eyes: Reports change in vision Cardiovascular Cardiovascular: Denies chest pain, leg edema, palpitations or racing heartbeat Respiratory/Chest Respiratory/Chest: Reports cough; Denies dyspnea or dyspnea on exertion Gastrointestinal Gastrointestinal: Denies abdominal pain, diarrhea, nausea or vomiting Genitourinary Genitourinary ED: Denies dysuria, hematuria or urinary frequency Musculoskeletal Musculoskeletal: Reports back pain; Denies extremity pain or neck pain Integumentary Denies rash or wounds Neurologic Neurologic: Denies headache(s), paresthesias or weakness EXAM Physical Exam Const Vital Signs: 02/22/24 00:19 02/22/24 02:11 02/22/24 03:54 Temperature 96.9 F L 97.5 F L Temperature Source Temporal Pulse Rate 95 100 100 Respiratory Rate 22 H 18 18 Blood Pressure 143/95 H 124/79 H 140/96 H Blood Pressure Mean 111 94 110 Pulse Ox 97 99 97 Oxygen Delivery Method Room Air Room Air Positive well nourished and well developed General Appearance ED: well developed and NAD HEENT Reports moist mucous membranes normocephalic and atraumatic Eyes EOMs intact bilaterally and conjunctivae normal General Eye ED: Yes normal appearance of both eyes Neck no lymphadenopathy and supple General: Negative for tenderness Chest Wall Chest: Negative for tenderness Resp normal respiratory effort and normal air movement Effort and Inspection: symmetric chest movement; Negative for respiratory distress Cardio regular rate, regular rhythm and no murmurs Peripheral Pulses: pulses 2+ throughout GI normal to inspection, nondistended, normoactive bowel sounds and non-tender GI Narrative: Gravid abdomen nontender. Palpation: Negative for guarding or rebound tenderness present Back/Spine Back/Spine Narrative: No midline tenderness. Mild right paralumbar tenderness. Extremity normal to inspection General Extremety ED: Negative for edema or tenderness General Extremity: Negative for edema Neuro oriented x3 and no sensory deficits noted Sensorium / Orientation: awake and alert Skin no rashes or lesions noted and no wounds MDM MDM MDM Narrative Medical decision making narrative: Interventions / MDM: Differential diagnosis: Lumbar strain, UTI in Diagnosis considered but do not suspect: Preeclampsia labs normal, no sciatica symptoms My EKG interpretation: N/A Imaging independently reviewed and interpreted by myself: N/A External documents reviewed: N/A Test considered but not ordered:N/A ED course: Bedside ultrasound positive movement heart tone 145. Blood pressure normalized. No headaches no abdominal pain no nausea or vomiting. Will check preeclampsia labs due to initial elevation. Back pain has subsided. 0340: Preeclampsia labs normal urine possible infection however had contaminated 50-100 squamous cells. Will send for urine culture as she is we will start empiric antibiotics of Keflex. Discussed signs of preeclampsia to look out for with return precautions otherwise she has a follow-up with her OB this coming Wednesday. All questions were answered. Re-evaluation: stable Disposition discussed with patient/family/significant other: Patient and significant other Case discussed with consulting clinician: N/A This note was generated with [employer] dictation software. It may contain incorrect words, spelling, and punctuation that were not noted in checking the note before signing. Lab Data Attestation: I reviewed the patient's lab results. Labs: Laboratory Results - last 24 hr 02/22/24 02/22/24 00:35 02:12 WBC 13.9 H RBC 4.68 Hgb 12.6 Hct 39.2 MCV 83.8 MCH 26.9 L MCHC 32.1 RDW Std Deviation 42.8 RDW Coeff of [place]om 14.2 Plt Count 256 MPV 11.2 Sodium 137 Potassium 3.8 Chloride 110 H Carbon Dioxide 19.0 L Anion Gap 8 BUN 8 Creatinine 0.73 Estim Creat Clear Calc 159.74 Est GFR (MDRD) Af Amer 125 Est GFR (MDRD) Non-Af 104 BUN/Creatinine Ratio 11.0 Glucose 216 H Uric Acid 4.4 Calcium 8.9 Total Bilirubin 0.40 AST 10 L ALT 19 Alkaline Phosphatase 107 Total Protein 7.1 Albumin 2.6 L Globulin 4.5 H Albumin/Globulin Ratio 0.6 L Urine Color Yellow Urine Clarity Clear Urine pH 6.0 Ur Specific [place] 1.025 Urine Protein 30 H Urine Glucose (UA) 1000 H Urine Ketones 5 H Urine Occult Blood Negative Urine Nitrite Negative Urine Bilirubin Negative Urine Urobilinogen 1 H Ur Leukocyte Esterase 100 H Urine RBC 5-10 SEEN Urine WBC 50-100 SEEN Ur Squamous Epith Cells 50-100 SEEN Calcium Oxalate Crystal 2+ Urine Bacteria 2+ Urine Mucus 1+ U Random Total Protein 25.5 H Urine Creatinine 230.00 Protein/Creatinin Ratio 111 Discharge Plan Triage Chief Complaint: Back ED Provider: Best Gudino Dx/Rx/DC Orders Clinical Impression: Back strain, Third trimester , UTI in Instructions: Urinary Tract Infections in Women, ED Back Sprain/Strain Prescriptions: New cephalexin 500 mg capsule 500 mg PO Q12 Qty: 10 0RF No Action sumatriptan succinate 50 mg tablet 50 mg PO PRN PRN (Reason: migraine headache) Patient Comments: Take 1 tablet by mouth Once as needed for migraine. May repeat after 2 hours. (DME) Appinions Shobha 2 Sensor Kit See Rx Instructions .Route Rx Instructions: As directed promethazine 25 mg tablet 25 mg PO TID PRN (Reason: headache) Qty: 60 0RF ondansetron 4 mg tablet,disintegrating 4 mg PO TID PRN (Reason: nausea and vomiting) Qty: 21 1RF ondansetron 4 mg tablet,disintegrating 4 mg PO Q6H PRN (Reason: nausea and vomiting) Qty: 14 0RF cephalexin 500 mg capsule 500 mg PO Q6H 7 Days Qty: 28 0RF dexamethasone 4 mg tablet 4 mg PO X1 Qty: 1 0RF Rx Instructions: Repeat dose 02/01/2024 if needed ondansetron 4 mg tablet,disintegrating 4 mg PO Q8H PRN PRN (Reason: Nausea) Qty: 10 0RF famotidine [Pepcid] 20 mg tablet 20 mg PO BID Qty: 60 0RF aspirin 81 mg tablet,delayed release (DR/EC) 81 mg PO DAILY magnesium oxide 400 mg (241.3 mg magnesium) tablet 400 mg PO DAILY fluticasone propionate 44 mcg/actuation HFA aerosol inhaler inhalation alcohol swabs Pads, Medicated topical lansoprazole 15 mg capsule,delayed release(DR/EC) 15 mg PO DAILY 30 Days Qty: 30 12RF Rx Instructions: Take one tablet by mouth daily [facility] [id number] 400 mcg-35 mg- 25 mg-5 mg tablet,chewable 1 tab PO DAILY 90 Days Qty: 90 4RF glycopyrrolate 2 mg tablet 2 mg PO DAILY Qty: 30 2RF (DME) pen needle, diabetic [Ultra-Thin II Ins Pen [place]] 29 gauge x 1/2 needle See Rx Instructions .Route Qty: 100 1RF Rx Instructions: As directed for DMII (E11.9); Z34.90 insulin glargine [Lantus Solostar U-100 Insulin] 100 unit/mL (3 mL) insulin pen 42 unit subcut QHS insulin regular human 100 unit/mL (3 mL) insulin pen 1 unit subcut TID Rx Instructions: 22 units in am, 22 units lunch, 26 units pm albuterol sulfate 90 mcg/actuation HFA aerosol inhaler 2 puff INHALATION Q4H PRN (Reason: wheezing) Qty: 8.5 3RF fluticasone propionate 44 mcg/actuation HFA aerosol inhaler 2 puff inhalation BID Qty: 10.6 4RF Rx Instructions: administer with spacer Primary Care Provider: Hilary Marie Referrals: Hilary Marie MD [Primary Care Provider] - Shelbi Dewitt DO [Med Staff - Active Staff] - Keep Gary appointment Activity Restrictions/Additional Instructions: heart tone 145 bedside ultrasound with movement. Preeclampsia labs normal. Likely situational with 1 elevation on arrival. Urine possible infection urine culture sent. Take antibiotic prescribed. Keep your follow-up with OB this coming Wednesday. Continue Tylenol as needed for your back pain. Print Language: Chinese Disposition Disposition: Home, Self Care Discharge Date/Time: 02/22/24 03:54
[2024-02-22 02:11] VITALS: BP 124/79; PULSE 100; RESP 18; O2SAT 99
[2024-02-22 02:14] LABS: Color, Urine Yellow (Yellow); Glucose, Dipstick 1000 mg/dl (Normal); Ketone-Dipstick 5 mg/dl (Negative); Leukocyte Esterase-Dipstick 100 /ul (Negative); Nitrite-Dipstick Negative (Negative); Occult Blood-Urine Negative /ul (Negative); Protein-Dipstick 30 mg/dl (Negative); Specific Gravity, Urine 1.025 (1.002-1.030); Urine Bilirubin Dipstick Negative (Negative); Urine Clarity Clear (Clear); Urine Urobilinogen 1 mg/dl (Normal)
[2024-02-22 02:21] LABS: Hematocrit 39.2 % (37-47); Hemoglobin 12.6 g/dL (12.0-15.0); Mean Corp Hgb Conc 32.1 g/dL (32-36); Mean Corpuscular Hgb 26.9 pg (27.0-32.0); Mean Corpuscular Volume 83.8 fL (81-99); Mean Platelet Vol. 11.2 fl (6.2-12.0); Platelet Count 256 K/mm3 (150-450); RBC Distribution Width CV 14.2 % (11.6-14.6); RBC Distribution Width SD 42.8 fl (35.1-43.9); Red Blood Count 4.68 M/mm3 (4.2-5.4); White Blood Count 13.9 K/mm3 (4.4-11.0)
[2024-02-22 02:31] LABS: Protein, Urine (Random) 25.5 mg/dL (<11.9); Protein:Creat Ratio 111 mg/g CRE (0-200)
[2024-02-22 02:38] LABS: Uric Acid 4.4 mg/dL (2.6-6.0)
[2024-02-22 02:40] LABS: Bacteria 2+ /hpf (None Seen); Mucous, Urine 1+ /hpf (<or=2+); Red Blood Cells-Urine 5-10 SEEN /hpf (0-5); Squamous Epithelial Cells - UA 50-100 SEEN /hpf (5-10); White Blood Cells 50-100 SEEN /hpf (0-5)
[2024-02-22 02:41] LABS: Calcium Oxalate Crystals Ur 2+ /hpf (<or=2+)
[2024-02-22 03:21] LABS: ALB/GLOB Ratio 0.6 RATIO (0.9-2.4); AST(SGOT) 10 U/L (15-37); Alanine Aminotransfer ALT/SGPT 19 U/L (13-56); Albumin, Serum 2.6 g/dL (3.2-5.0); Alkaline Phosphatase 107 U/L (45-117); Anion Gap 8 (5-15); BUN 8 mg/dL (7-18); Calcium,Total 8.9 mg/dL (8.5-10.1); Chloride 110 mmol/L (98-107); Creatinine, Serum 0.73 mg/dL (0.55-1.02); EST Glomerular Filtration Rate 104 mL/min (>60); Est Glom Filt Rate - Afr Amer 125 mL/min (>60); Estimated Creatinine Clearance 159.74 ml/min; Globulin 4.5 g/dL (2.2-4.2); Glucose 216 mg/dL (74-106); Potassium 3.8 mmol/L (3.5-5.1); Protein, Total 7.1 g/dL (6.4-8.2); Sodium Level 137 mmol/L (136-145)
[2024-02-22] MEDS: Cephalexin 250 MG Capsule 500 MG PO (03:46)
[2024-02-22 03:54] VITALS: BP 140/96; PULSE 100; RESP 18; TEMP 36.4; O2SAT 97
== END 2024-02-22 03:54 | disposition home or self-care (01) ==
PROVIDERS: Emergency Provider Emergency Medicine; PCP Internal Medicine; Visit Provider Emergency Medicine
DX: O9A.213 Injury, poisoning and certain other consequences of external causes complicating pregnancy, third trimester (principal); O23.43 Unspecified infection of urinary tract in pregnancy, third trimester; S39.012A Strain of muscle, fascia and tendon of lower back, initial encounter; Z3A.31 31 weeks gestation of pregnancy; K21.9 Gastro-esophageal reflux disease without esophagitis; O24.113 Pre-existing type 2 diabetes mellitus, in pregnancy, third trimester; J45.909 Unspecified asthma, uncomplicated; O99.513 Diseases of the respiratory system complicating pregnancy, third trimester; O99.613 Diseases of the digestive system complicating pregnancy, third trimester; X58.XXXA Exposure to other specified factors, initial encounter
CPT/HCPCS: 80053; 81001; 82570; 84156; 84550; 85027; 87086; 87088; 99282

== ENCOUNTER 2024-02-24 02:25 | Outpatient (CLI) | payer MEDICAID, SELFPAY ==
[2024-02-24 02:47] VITALS: BP 121/80; PULSE 95; RESP 16; TEMP 36.3
[2024-02-24 03:52] LABS: Hematocrit 36.5 % (37-47); Mean Corp Hgb Conc 32.9 g/dL (32-36); Mean Corpuscular Hgb 27.2 pg (27.0-32.0); Mean Corpuscular Volume 82.8 fL (81-99); Mean Platelet Vol. 11.2 fl (6.2-12.0); Platelet Count 239 K/mm3 (150-450); RBC Distribution Width CV 14.1 % (11.6-14.6); RBC Distribution Width SD 41.8 fl (35.1-43.9); Red Blood Count 4.41 M/mm3 (4.2-5.4)
[2024-02-24 04:08] LABS: Protein, Urine (Random) 38.4 mg/dL (<11.9); Protein:Creat Ratio 158 mg/g CRE (0-200)
[2024-02-24 04:10] LABS: ALB/GLOB Ratio 0.5 RATIO (0.9-2.4); AST(SGOT) 11 U/L (15-37); Alanine Aminotransfer ALT/SGPT 19 U/L (13-56); Albumin, Serum 2.3 g/dL (3.2-5.0); Alkaline Phosphatase 94 U/L (45-117); Anion Gap 5 (5-15); BUN 10 mg/dL (7-18); Calcium,Total 8.9 mg/dL (8.5-10.1); Chloride 111 mmol/L (98-107); Creatinine, Serum 0.59 mg/dL (0.55-1.02); EST Glomerular Filtration Rate 132 mL/min (>60); Est Glom Filt Rate - Afr Amer 160 mL/min (>60); Globulin 4.5 g/dL (2.2-4.2); Glucose 122 mg/dL (74-106); Potassium 3.8 mmol/L (3.5-5.1); Protein, Total 6.8 g/dL (6.4-8.2); Sodium Level 138 mmol/L (136-145); Uric Acid 3.8 mg/dL (2.6-6.0)
--- NOTE | 2024-02-24 04:24 | NURSING ---
Pt is having RUQ abdomnial pain that radiates to her back. Pt is negative for other pre- e symptoms and BP is within normal limits, pre-e labs came back normal. Pt has been known to have gallstones and is planning to have cholecystectomy after delivery. Provider is aware, pt is okay to be discharged and at this time recommends pt to follow up with general surgery in AM.
--- NOTE | 2024-02-27 06:37 | OB.TRI.PN_ITS ---
Progress Notes Date of Service: 02/24/24 Progress Note: Patient presents for triage evaluation secondary to abdominal pain FHT: 145 Moderate variability reactive no decelerations category I tracing [place]: no regular Contractions Assessment and plan: abdominal pain 31 weeks Reactive NST, reassuring maternal and status normal labs patient discharged to home to follow-up as scheduled. See problem list details for additional plan information. Laboratory Studies: Laboratory Tests 02/24/24 Range/Units 03:40 WBC 12.0 H (4.4-11.0) K/mm3 RBC 4.41 (4.2-5.4) M/mm3 Hgb 12.0 (12.0-15.0) g/dL Hct 36.5 L (37-47) % MCV 82.8 (81-99) fL MCH 27.2 (27.0-32.0) pg MCHC 32.9 (32-36) g/dL RDW Std Deviation 41.8 (35.1-43.9) fl RDW Coeff of [place] 14.1 (11.6-14.6) % Plt Count 239 (150-450) K/mm3 MPV 11.2 (6.2-12.0) fl Sodium 138 (136-145) mmol/L Potassium 3.8 (3.5-5.1) mmol/L Chloride 111 H (98-107) mmol/L Carbon Dioxide 21.0 (21.0-32.0) mmol/L Anion Gap 5 (5-15) BUN 10 (7-18) mg/dL Creatinine 0.59 (0.55-1.02) mg/dL Est GFR (MDRD) Af Amer 160 (>60) mL/min Est GFR (MDRD) Non-Af 132 (>60) mL/min BUN/Creatinine Ratio 17.0 (10-20) RATIO Glucose 122 H (74-106) mg/dL Uric Acid 3.8 (2.6-6.0) mg/dL Calcium 8.9 (8.5-10.1) mg/dL Total Bilirubin 0.30 (0.20-1.00) mg/dL AST 11 L (15-37) U/L ALT 19 (13-56) U/L Alkaline Phosphatase 94 (45-117) U/L Total Protein 6.8 (6.4-8.2) g/dL Albumin 2.3 L (3.2-5.0) g/dL Globulin 4.5 H (2.2-4.2) g/dL Albumin/Globulin Ratio 0.5 L (0.9-2.4) RATIO U Random Total Protein 38.4 H (<11.9) mg/dL Urine Creatinine 243.00 (NO RANGE EST.) mg/dL Protein/Creatinin Ratio 158 (0-200) mg/g CRE Charges/Coding Procedures Urinary/Genital [id number]-[id number]: [id number] non-stress test Interp Assessment & Plan (1) Abdominal pain during in third trimester: (2) 31 weeks gestation of :
== END 2024-02-24 04:45 | disposition home or self-care (01) ==
LOC: WPOUT 02:29 → WP 02:30
PROVIDERS: PCP Internal Medicine; Referring Provider Obstetrics & Gynecology; Visit Provider Obstetrics & Gynecology
DX: O99.891 Other specified diseases and conditions complicating pregnancy (principal); R10.9 Unspecified abdominal pain; Z3A.31 31 weeks gestation of pregnancy
CPT/HCPCS: 36415; 59025; 59050; 80053; 82570; 84156; 84550; 85027; 99221; G0378

== ENCOUNTER → 2024-02-28 | Outpatient (CLI) | payer MEDICAID, SELFPAY | END | disposition home or self-care (01) | LOC: LAB 14:03 | PROVIDERS: PCP Internal Medicine; Referring Provider Nurse Practitioner; Visit Provider Nurse Practitioner | DX: O24.113 Pre-existing type 2 diabetes mellitus, in pregnancy, third trimester (principal); Z3A.00 Weeks of gestation of pregnancy not specified | CPT/HCPCS: 36415; 83036 ==

== ENCOUNTER 2024-03-02 20:45 | Emergency (ER) | payer MEDICAID, SELFPAY ==
[2024-03-02 20:45] VITALS: BP 145/88; PULSE 106; RESP 20; TEMP 36.1; O2SAT 97; BMI 45.5
--- NOTE | 2024-03-02 21:16 | ED.VIS.FEGU ---
HPI <AMADO Hleler - Last Filed: 03/02/24 22:05> HPI - Female History of Present Illness Chief Complaint: Complaint Narrative Narrative: Patient presenting today due to urinary retention she has had since around 9 PM yesterday evening. She reports that she has had small amounts of dribbling but has not fully emptied her bladder. She has been drinking water today but despite this is not urinating normally. She is currently 33 weeks . She reports suprapubic pressure. She denies any dysuria or hematuria. She denies any flank pain, fevers, and chills. She did have 1 episode of vomiting earlier today but is no longer nauseous. Her OB is Dr. Parmar. [facility] <AMADO Heller - Last Filed: 03/02/24 22:05> [facility] Medical History Seasonal allergies Wears glasses Depression Anxiety Dietary restriction Gastric reflux Non-smoker Shortness of breath on exertion Leg cramps Migraine Cholelithiasis Diabetes GERD (gastroesophageal reflux disease) CPAP (continuous positive airway pressure) dependence Sleep apnea Asthma Home Medications ?Medication ?Instructions ?Recorded ?Last Taken ?Type ondansetron 4 mg disintegrating 4 mg PO TID PRN nausea and 12/26/22 Unknown Rx tablet vomiting #21 tabs flash glucose sensor (FreeStyle 09/28/23 Unknown History Shobha 2 Sensor kit) PNV 153-FA 400 mcg-om3 35 mg-dha 1 tab PO DAILY 90 days #90 tabs 11/09/23 12/02/23 Rx 25 mg-epa 5 mg-fish oil chew tablet aspirin 81 mg tablet,delayed 81 mg PO DAILY 11/25/23 12/03/23 History release magnesium oxide 400 mg (241.3 mg 400 mg PO DAILY 11/25/23 12/03/23 History magnesium) tablet pen needle, diabetic 29 gauge x #100 ea 12/13/23 Unknown Rx 1/2 (Ultra-Thin II Insulin Pen [place]) albuterol sulfate 90 mcg/actuation 2 puff inhalation Q4H PRN wheezing 02/07/24 Unknown Rx aerosol inhaler #8.5 grams fluticasone propionate 44 2 puff inhalation BID #10.6 grams 02/08/24 Unknown Rx mcg/actuation HFA aerosol inhaler lansoprazole 30 mg capsule,delayed 30 mg PO DAILY 1 month #30 caps 02/23/24 Unknown Rx release metformin 500 mg tablet,extended 500 mg PO QHS 02/24/24 Unknown History release 24 hr insulin glargine 100 unit/mL (3 48 unit subcut QAM 02/28/24 Unknown History mL) subcutaneous pen (Lantus Solostar U-100 Insulin) insulin lispro 100 unit/mL 15 - 38 unit subcut TID 02/28/24 Unknown History subcutaneous pen glycopyrrolate 2 mg tablet 2 mg PO DAILY #30 tabs 03/02/24 Unknown Rx Allergy/AdvReac Type Severity Reaction Status Date / Time cetirizine (From [facility]) Allergy Severe Angioedema Verified 03/02/24 20:49 prednisone Allergy Severe Swelling Verified 03/02/24 20:49 adhesive tape Allergy Intermediate Rash Verified 03/02/24 20:49 latex Allergy Intermediate Swelling Verified 03/02/24 20:49 Family History Mother Asthma Diabetes Hypertension High cholesterol Congestive heart failure Arthritis Anxiety and depression CVA (cerebral vascular accident) History of recurrent miscarriages Father Arthritis Surgical History History of esophagogastroduodenoscopy (EGD) No history of previous surgery Social History adopted: No household members: spouse current occupational status: employed current occupation: [employer] pets and animals: No history of recent travel: No sexually active: Yes Smoking Status: Never smoker Electronic Cigarette Use: not used alcohol intake: never substance use type: does not use well-balanced diet: about half the time caffeine: Yes (2) Type: coffee and tea eating out: 1-3 times/week during the past year weight has: increased > 10 lbs frequency: does not exercise fred/christian: Jehov[employer] Witness seatbelt use: always do you feel safe at home: Yes additional social history: Tyree LEE <AMADO Heller - Last Filed: 03/02/24 22:05> [facility] Constitutional Constitutional ED: Denies chills or fever(s) Cardiovascular Cardiovascular: Denies chest pain Respiratory/Chest Respiratory/Chest: Denies cough or dyspnea Gastrointestinal Gastrointestinal: Denies abdominal pain, nausea or vomiting Genitourinary Genitourinary ED: Denies dysuria or hematuria Musculoskeletal Musculoskeletal: Denies arthralgias, back pain or myalgias Integumentary Denies rash Neurologic Neurologic: Denies weakness EXAM <AMADO Heller - Last Filed: 03/02/24 22:05> Physical Exam Const Vital Signs: 03/02/24 20:45 03/02/24 22:09 Temperature 97 F L 97.5 F L Temperature Source Temporal Pulse Rate 106 H 78 Respiratory Rate 20 H 18 Blood Pressure 145/88 H 128/74 H Blood Pressure Mean 107 92 Pulse Ox 97 97 Oxygen Delivery Method Room Air Positive well nourished, well developed and no apparent distress General Appearance ED: well developed HEENT Reports normocephalic and head/scalp atraumatic Mouth ED: Yes moist mucous membranes normal Eyes PERRL and EOMs intact bilaterally Neck full ROM and supple Chest Wall inspection of chest normal Resp normal respiratory effort and clear to auscultation bilaterally Cardio regular rate and regular rhythm GI soft to palpation, non-tender, non-distended and no masses Back/Spine normal ROM and normal to inspection Extremity normal to inspection and full ROM Neuro oriented x3, CN's II-XII intact bilaterally, moves all extremities, no focal motor deficits and no sensory deficits noted Sensorium / Orientation: awake and alert Psych mental status grossly normal and thought process normal Skin no rashes or lesions noted and no wounds <Dr. Best Gudino DO - Last Filed: 03/02/24 22:55> Physical Exam Const Vital Signs: 03/02/24 20:45 03/02/24 22:09 Temperature 97 F L 97.5 F L Temperature Source Temporal Pulse Rate 106 H 78 Respiratory Rate 20 H 18 Blood Pressure 145/88 H 128/74 H Blood Pressure Mean 107 92 Pulse Ox 97 97 Oxygen Delivery Method Room Air MDM <AMADO Heller - Last Filed: 03/02/24 22:05> [facility] Narrative Medical decision making narrative: Patient presenting today due to urinary retention she has had for about 24 hours. She is well-appearing and in no acute distress. Her abdomen is soft and nontender. She was straight cathed and there was 30 cc in her bladder. BMP obtained to assess for kidney dysfunction and her BMP is unremarkable. UA negative for UTI or hematuria. Recommended that she follow-up with her OB, return instructions discussed and patient discharged home in stable condition. Lab Data Attestation: I reviewed the patient's lab results. Labs: Laboratory Results - last 24 hr 03/02/24 03/02/24 21:12 21:26 Sodium 139 Potassium 3.5 Chloride 111 H Carbon Dioxide 20.0 L Anion Gap 9 BUN 11 Creatinine 0.64 Estim Creat Clear Calc 184.01 Est GFR (MDRD) Af Amer 144 Est GFR (MDRD) Non-Af 119 BUN/Creatinine Ratio 17.1 Glucose 77 Calcium 8.6 Urine Color Yellow Urine Clarity Clear Urine pH 6.0 Ur Specific [place] 1.020 Urine Protein Negative Urine Glucose (UA) Normal Urine Ketones Negative Urine Occult Blood Negative Urine Nitrite Negative Urine Bilirubin Negative Urine Urobilinogen Normal Ur Leukocyte Esterase Negative Urine RBC 0 SEEN Urine WBC 0 SEEN Ur Squamous Epith Cells 0-5 SEEN Urine Bacteria RARE Urine Mucus 0 SEEN <Dr. Best Gudino, DO - Last Filed: 03/02/24 22:55> [facility] MDM Narrative Medical decision making narrative: Patient presenting today due to urinary retention she has had for about 24 hours. She is well-appearing and in no acute distress. Her abdomen is soft and nontender. She was straight cathed and there was 30 cc in her bladder. BMP obtained to assess for kidney dysfunction and her BMP is unremarkable. UA negative for UTI or hematuria. Recommended that she follow-up with her OB, return instructions discussed and patient discharged home in stable condition. Attending note: I have personally performed a face to face assessment of the patient and have reviewed the ATUL note. I personally made/approved the management plan and take responsibility for the patient management. I performed a substantive portion of the visit including all aspects of the following. My cristina findings include: G1, P0 at 3334 weeks . States that yesterday difficulty urinating feels like she is dribbling. No abdominal pain. Exam gravid abdomen and nontoxic. Bladder scan by nursing noted 300 cc straight cath only 100 cc. Slightly obscured with her uterus and fluid there. Urine sent negative renal function normal. Discussed likely bladder issues from her . She is reassured with outpatient follow-up. Lab Data Labs: Laboratory Results - last 24 hr 03/02/24 03/02/24 21:12 21:26 Sodium 139 Potassium 3.5 Chloride 111 H Carbon Dioxide 20.0 L Anion Gap 9 BUN 11 Creatinine 0.64 Estim Creat Clear Calc 184.01 Est GFR (MDRD) Af Amer 144 Est GFR (MDRD) Non-Af 119 BUN/Creatinine Ratio 17.1 Glucose 77 Calcium 8.6 Urine Color Yellow Urine Clarity Clear Urine pH 6.0 Ur Specific [place] 1.020 Urine Protein Negative Urine Glucose (UA) Normal Urine Ketones Negative Urine Occult Blood Negative Urine Nitrite Negative Urine Bilirubin Negative Urine Urobilinogen Normal Ur Leukocyte Esterase Negative Urine RBC 0 SEEN Urine WBC 0 SEEN Ur Squamous Epith Cells 0-5 SEEN Urine Bacteria RARE Urine Mucus 0 SEEN Discharge Plan Triage Chief Complaint: Complaint ED Midlevel Provider: Lulu Moscoso ED Provider: Best Gudino Dx/Rx/DC Orders Clinical Impression: Third trimester , Decreased urination Instructions: ED Urinary Retention, Female Prescriptions: No Action (DME) FreeStyle Shobha 2 Sensor Kit See Rx Instructions .Route Rx Instructions: As directed ondansetron 4 mg tablet,disintegrating 4 mg PO TID PRN (Reason: nausea and vomiting) Qty: 21 1RF aspirin 81 mg tablet,delayed release (DR/EC) 81 mg PO DAILY magnesium oxide 400 mg (241.3 mg magnesium) tablet 400 mg PO DAILY metformin 500 mg tablet extended release 24 hr 500 mg PO QHS insulin lispro 100 unit/mL insulin pen 15 - 38 unit subcut TID PNV [id number] 400 mcg-35 mg- 25 mg-5 mg tablet,chewable 1 tab PO DAILY 90 Days Qty: 90 4RF (DME) pen needle, diabetic [Ultra-Thin II Ins Pen [place]] 29 gauge x 1/2 needle See Rx Instructions .Route Qty: 100 1RF Rx Instructions: As directed for DMII (E11.9); Z34.90 albuterol sulfate 90 mcg/actuation HFA aerosol inhaler 2 puff INHALATION Q4H PRN (Reason: wheezing) Qty: 8.5 3RF fluticasone propionate 44 mcg/actuation HFA aerosol inhaler 2 puff inhalation BID Qty: 10.6 4RF Rx Instructions: administer with spacer lansoprazole 30 mg capsule,delayed release(DR/EC) 30 mg PO DAILY 30 Days Qty: 30 5RF Rx Instructions: Take one tablet by mouth daily insulin glargine [Lantus Solostar U-100 Insulin] 100 unit/mL (3 mL) insulin pen 48 unit subcut QAM glycopyrrolate 2 mg tablet 2 mg PO DAILY Qty: 30 2RF Primary Care Provider: Hilary Marie Referrals: Hilary Marie MD [Primary Care Provider] - Activity Restrictions/Additional Instructions: Follow-up with your OB and return for any worsening symptoms. Print Language: Latvian Disposition Disposition: Home, Self Care Discharge Date/Time: 03/02/24 22:10
[2024-03-02 21:33] LABS: Mucous, Urine 0 SEEN /hpf (<or=2+); Red Blood Cells-Urine 0 SEEN /hpf (0-5); White Blood Cells 0 SEEN /hpf (0-5)
[2024-03-02 21:33] LABS: Anion Gap 9 (5-15); BUN 11 mg/dL (7-18); BUN/Creat Ratio 17.1 RATIO (10-20); Calcium,Total 8.6 mg/dL (8.5-10.1); Chloride 111 mmol/L (98-107); Creatinine, Serum 0.64 mg/dL (0.55-1.02); EST Glomerular Filtration Rate 119 mL/min (>60); Est Glom Filt Rate - Afr Amer 144 mL/min (>60); Estimated Creatinine Clearance 184.01 ml/min; Glucose 77 mg/dL (74-106); Potassium 3.5 mmol/L (3.5-5.1); Sodium Level 139 mmol/L (136-145)
[2024-03-02 21:37] LABS: Color, Urine Yellow (Yellow); Glucose, Dipstick Normal (Normal); Ketone-Dipstick Negative (Negative); Leukocyte Esterase-Dipstick Negative /ul (Negative); Nitrite-Dipstick Negative (Negative); Occult Blood-Urine Negative /ul (Negative); Protein-Dipstick Negative (Negative); Urine Bilirubin Dipstick Negative (Negative); Urine Clarity Clear (Clear); Urine Urobilinogen Normal (Normal)
[2024-03-02 21:47] LABS: Squamous Epithelial Cells - UA 0-5 SEEN /hpf (5-10)
[2024-03-02 21:48] LABS: Bacteria RARE /hpf (None Seen)
[2024-03-02 22:09] VITALS: BP 128/74; PULSE 78; RESP 18; TEMP 36.4; O2SAT 97
== END 2024-03-02 22:10 | disposition home or self-care (01) ==
PROVIDERS: Physician Assistant; Emergency Provider Emergency Medicine; PCP Internal Medicine; Referring Provider Emergency Medicine; Visit Provider Emergency Medicine
DX: O99.891 Other specified diseases and conditions complicating pregnancy (principal); Z79.4 Long term (current) use of insulin; Z3A.33 33 weeks gestation of pregnancy; K21.9 Gastro-esophageal reflux disease without esophagitis; J45.909 Unspecified asthma, uncomplicated; Z79.899 Other long term (current) drug therapy; Z79.84 Long term (current) use of oral hypoglycemic drugs; R39.14 Feeling of incomplete bladder emptying; O24.113 Pre-existing type 2 diabetes mellitus, in pregnancy, third trimester; O99.513 Diseases of the respiratory system complicating pregnancy, third trimester; O99.613 Diseases of the digestive system complicating pregnancy, third trimester
CPT/HCPCS: 80048; 81001; 99282

== ENCOUNTER → 2024-03-03 | Outpatient (CLI) | payer MEDICAID, SELFPAY ==
--- NOTE | 2024-03-03 15:27 | US_ITS ---
STUDY: OBSTETRICAL ULTRASOUND - BIOPHYSICAL PROFILE REASON FOR EXAM: Female, 24 years old well being LMP: 07/15/2023 PRIOR ULTRASOUND: None. TECHNIQUE: Transabdominal TECHNICAL QUALITY: Adequate. FINDINGS: There is a single intrauterine fetus. The fetus is in a cephalic presentation. There is demonstrated cardiac activity with a heart rate of 143 bpm. There is a normal amniotic fluid volume. The largest amniotic fluid pocket measures 6.8 cm. The amniotic fluid index (ROCÍO) is 13.6 cm. The placenta is anterior in location and is not low lying. There are Grade 2 placental changes. Age by LMP: 33 weeks, 1 days. PARAMJIT by LMP: 04/20/2024. BIOPHYSICAL PROFILE: Breathing Movements (FBM): 2 Gross Body Movements (GBM): 2 Tone (FT): 2 Amniotic Fluid Volume (AFV): 2 TOTAL SCORE: US/Biophysical Prof W/O Non Stres IMPRESSION: Normal biophysical profile of 10/13. Electronically Signed: Marvin Lara MD at 13:35 EST ,
== END | disposition home or self-care (01) ==
LOC: US 15:25
PROVIDERS: PCP Internal Medicine; Referring Provider Obstetrics & Gynecology; Visit Provider Obstetrics & Gynecology
DX: O24.011 Pre-existing type 1 diabetes mellitus, in pregnancy, first trimester (principal); Z3A.00 Weeks of gestation of pregnancy not specified
CPT/HCPCS: 76819

== ENCOUNTER 2024-03-09 14:45 | Outpatient (CLI) | payer MEDICAID, SELFPAY ==
[2024-03-09 15:10] VITALS: BMI 45.5
[2024-03-09 15:14] VITALS: BP 133/75; PULSE 95; RESP 18; TEMP 36.9
[2024-03-09 15:41] LABS: Color, Urine Yellow (Yellow); Glucose, Dipstick 250 mg/dl (Normal); Ketone-Dipstick 5 mg/dl (Negative); Leukocyte Esterase-Dipstick 100 /ul (Negative); Nitrite-Dipstick Negative (Negative); Occult Blood-Urine 10 /ul (Negative); Protein-Dipstick 30 mg/dl (Negative); Specific Gravity, Urine 1.025 (1.002-1.030); Urine Bilirubin Dipstick Negative (Negative); Urine Clarity Sl. Cloudy (Clear); Urine Urobilinogen 1 mg/dl (Normal)
[2024-03-09 15:53] VITALS: BP 133/82; PULSE 100; RESP 18; TEMP 36.9
[2024-03-09] MEDS: Phenazopyridine 95 MG Tablet 190 MG PO (17:11)
[2024-03-09] MEDS: Nitrofurantoin Macrocrystals 100 MG Capsule PO (17:11)
[2024-03-09] MEDS: Acetaminophen 500 MG Tablet 1000 MG PO (17:11)
--- NOTE | 2024-03-17 08:31 | OB.TRI.HP_ITS ---
HPI - General General Date of Service: 03/09/24 HPI Narrative FRED MELGOZA, is a 24 F who [id number] at 34 weeks with lower abdominal cramping, decreased fm and urinary urgency and pressure. Maternal Data Information PARAMJIT Calculator Estimated Delivery Date Method Current WG Current Estimate 04/20/24 LMP (Certain) 35w 1d Other Estimates 04/19/24 Ultrasound #1 35w 2d PFSH PFSH Medical History (Updated 03/16/24 @ 17:[address] Shelbi Dewitt, DO) Seasonal allergies Wears glasses Depression Anxiety Dietary restriction Gastric reflux Non-smoker Shortness of breath on exertion Leg cramps Migraine Cholelithiasis Diabetes GERD (gastroesophageal reflux disease) CPAP (continuous positive airway pressure) dependence Sleep apnea Asthma Home Medications ?Medication ?Instructions ?Recorded ?Last Taken ?Type ondansetron 4 mg disintegrating 4 mg PO TID PRN nausea and 12/26/22 Unknown Rx tablet vomiting #21 tabs flash glucose sensor (FreeStyle 09/28/23 Unknown History Shobha 2 Sensor kit) PNV 153-FA 400 mcg-om3 35 mg-dha 1 tab PO DAILY 90 days #90 tabs 11/09/23 03/16/24 21:30 Rx 25 mg-epa 5 mg-fish oil chew tablet 1 TAB aspirin 81 mg tablet,delayed 81 mg PO DAILY 11/25/23 03/16/24 08:00 History release magnesium oxide 400 mg (241.3 mg 400 mg PO DAILY 11/25/23 03/16/24 08:30 History magnesium) tablet 400 mg pen needle, diabetic 29 gauge x #100 ea 12/13/23 Unknown Rx 1/2 (Ultra-Thin II Insulin Pen [place]) albuterol sulfate 90 mcg/actuation 2 puff inhalation Q4H PRN wheezing 02/07/24 Unknown Rx aerosol inhaler #8.5 grams fluticasone propionate 44 2 puff inhalation BID #10.6 grams 02/08/24 03/16/24 21:30 Rx mcg/actuation HFA aerosol inhaler 2 puff lansoprazole 30 mg capsule,delayed 30 mg PO DAILY 1 month #30 caps 02/23/24 03/16/24 08:30 Rx release 30 mg metformin 500 mg tablet,extended 500 mg PO QHS 02/24/24 03/16/24 21:30 History release 24 hr 500 mg glycopyrrolate 2 mg tablet 2 mg PO DAILY #30 tabs 03/02/24 03/16/24 08:30 Rx 2 mg famotidine 20 mg tablet (Acid 20 mg PO BID 03/09/24 03/16/24 08:00 History Controller) insulin glargine 100 unit/mL 38 unit subcut QPM 03/16/24 03/16/24 21:30 History subcutaneous solution (Lantus 38 units U-100 Insulin) insulin glargine 100 unit/mL 42 unit subcut .Q AM 03/16/24 03/16/24 08:30 History subcutaneous solution (Lantus 42 units U-100 Insulin) insulin lispro 100 unit/mL 36 unit subcut BREAKFAST 03/16/24 03/16/24 08:30 History subcutaneous pen (Humalog KwikPen 36 units (U-100) Insulin) insulin lispro 100 unit/mL 40 unit subcut LUNCH 03/16/24 03/16/24 12:00 History subcutaneous pen (Humalog KwikPen (U-100) Insulin) insulin lispro 100 unit/mL 62 unit subcut DINNER 03/16/24 03/16/24 19:00 History subcutaneous pen (Humalog KwikPen 62 units (U-100) Insulin) Allergy/AdvReac Type Severity Reaction Status Date / Time cetirizine (From [facility]) Allergy Severe Angioedema Verified 03/16/24 23:21 prednisone Allergy Severe Swelling Verified 03/16/24 23:21 adhesive tape Allergy Intermediate Rash Verified 03/16/24 23:21 latex Allergy Intermediate Swelling Verified 03/16/24 23:21 Family History Mother Asthma Diabetes Hypertension High cholesterol Congestive heart failure Arthritis Anxiety and depression CVA (cerebral vascular accident) History of recurrent miscarriages Father Arthritis Surgical History History of esophagogastroduodenoscopy (EGD) No history of previous surgery Social History adopted: No household members: spouse current occupational status: employed current occupation: [employer] pets and animals: No history of recent travel: No sexually active: Yes Smoking Status: Never smoker Electronic Cigarette Use: not used alcohol intake: never substance use type: does not use well-balanced diet: about half the time caffeine: Yes (2) Type: coffee and tea eating out: 1-3 times/week during the past year weight has: increased > 10 lbs frequency: does not exercise fred/pentecostal: Mu-Ism seatbelt use: always do you feel safe at home: Yes additional social history: [place] History 1 Elective abortions Hx Para 0 Spontaneous abortions Hx # Term Pregnancies Ectopic pregnancies Hx # Pregnancies Multiple births # of living children Visit Details Expected Delivery Route/Plan Labor Preferences- CB/BF classes: enc labor support person: [place]ree labor intervention preferences: [] pain management options preferred: undecided cut cord/dad catch: no : no PP control planned: discussed discussed possible routes of delivery and associated risks: [] special requests: [] Plans Covid status: [] Flu vaccine: [] Tdap vaccine: declines Rhogam: given LARC form signed: yes movement and labor precautions reviewed. Problem list reviewed and updated with the most current plan of care details and appropriate orders placed. Relevant counseling for the gestational age provided. Continue routine care and follow up unless otherwise noted in visit notes/problem list details OB Flowsheet Initial Weight: Not Recorded Date -?-?-?-?-?-?-?-?-?-?-?-?- EGA Weight BP Urine Prot -?-?-?-?-?-?-?-?-?-?-?-?- Glucose FHR FuHt Pres Dilation -?-?-?-?-?-?-?-?-?-?-?-?- Effaced St Visit Note 10/04/23 -?-?-?-?-?-?-?-?-?-?-?-?- 11w 4d 256 lb 6 oz 119/81 -?-?-?-?-?-?-?-?-?-?-?-?- 181 -?-?-?-?-?-?-?-?-?-?-?-?- JV_ CRL 46 mm an d consistent with LMP. She is a type 1 DM and having glucose levels as high as 300. fasting are around 140's. She is only on lantus 14 units. will increase lantus to 24 for now and patient will send me a log of fasting and 2 hr pp. consulting [facility]. pt has yeast infection currently. recommend OTC cream. JV_ CRL 46 mm and consistent with LMP. She is a type 1 DM and having glucose levels as high as 300. fasting are around 140's. She is only on lantus 14 units. will increase lantus to 24 for now and patient will send me a log of fasting and 2 hr pp. consulting [facility]. pt has yeast infection currently. recommend OTC cream. desires NIPT and carrier screening. 11/03/23 -?-?-?-?-?-?-?-?-?-?-?-?- 15w 6d 261 lb 2 oz 120/81 Nega tive -?-?-?-?-?-?-?-?-?-?-?-?- Negative 160 -?-?-?-?-?-?-?-?-?-?-?-?- -No VB. Brief US to confirm FHT. Not checking glucose QID. Today FBS was 135, 2 hr pp was 218. Wrote out sheet for tracking readings and food. Ref to [facility]. Call 5 days with readings. 11/17/23 -?-?-?-?-?-?-?-?-?-?-?-?- 17w 6d 265 lb 8 oz 121/83 Nega tive -?-?-?-?-?-?-?-?-?-?-?-?- Negative 145 -?-?-?-?-?-?-?-?-?-?-?-?- JV- fasting leve ls are all over 130's- 160's. 2 hr pp are all elevated as high as 180. lantus 24 at bedtime, humalog is 15, 18, 15. increasing lantus to 30, novolog to 20,18,20. has anatomy scan scheduled for next week. will [facility] a [facility] as [facility] heads up. 12/15/23 -?-?-?-?--?-?-?-?-?-?-?-?- 21w 6d 270 lb 109/72 Negative -?-?-?-?-?-?-?-?-?-?-?-?- Negative 155 -?-?-?-?-?-?-?-?-?-?-?-?- JV- seeing MFM n ow for glucose management. They have her on 42 of lantus and of log. Fasting levels are getting better. last few days were 111, 110. 2 hr pp also improving . 01/19/24 -?-?-?-?-?-?-?-?-?-?-?-?- 26w 6d 266 lb 4 oz 132/84 Trac e -?-?-?-?-?-?-?-?-?-?-?-?- Negative 160 -?-?-?-?-?-?-?-?-?-?-?-?- KW- no vb/lof/ct x, good fm. change in insulin dose- Lantus 34/34 AM and PM. log . will get 28 wk labs at next appt. viral illness today. encouraged safe meds during , hydration and rest. 02/02/24 -?-?-?--?-?-?-?-?-?-?-?-?- 28w 6d 266 lb 8 oz 118/80 -?-?-?-?-?-?-?-?-?-?-?-?- 150 29 -?-?-?-?-?-?-?-?-?-?-?-?- JV- pt has bronc hitis. recommend using her inhaler q 4 hrs. She is on a steroid dose pack and an inhaled steroid. 28 week labs today. she is following with [facility]. no changes in insulin. 02/16/24 -?-?-?-?-?-?-?-?-?-?-?-?- 30w 6d 276 lb 2 oz 118/82 Nega tive -?-?-?-?-?-?-?-?-?-?-?-?- Negative 145 31 -?-?-?-?-?-?-?-?-?-?-?-?- MH-No vB, LOF. S till with cough, congestion. Feels short of breath. Will go to [facility] today 02/28/24 -?-?-?-?-?-?-?-?-?-?-?-?- 32w 4d 282 lb 8 oz 130/83 Nega tive -?-?-?-?-?-?-?-?-?-?-?-?- Negative 140 -?-?-?-?-?-?-?-?-?-?-?-?- KW- work in for SM. no vb/lof/ctx. good fm. insulin is now /. lantus is 48/36. had BPP today with MFM and sees them every wednesday. had 10/13 Bpp today. will need BPPs scheduled on . 03/15/24 -?-?-?-?-?-?-?-?-?-?-?-?- 34w 6d 297 lb 130/88 Negative -?-?-?-?-?-?-?-?-?-?-?-?- Negative 135 36 -?-?-?-?-?-?-?-?-?-?-?-?- SM- on lantus 42 /38. humalog is 36/40/62. NST FHR Rate Baby A Baseline: 130 Variability:: Moderate Accelerations:: 15 x 15 Decelerations:: None NST Reactive:: Yes FHR Category:: Category I Uterine Activity:: irreg Assessment & Plan (1) UTI (urinary tract infection): COMMENT: follow culture, start macrobid rx consider continued treatment in PLAN: Plan Patient presents for triage evaluation secondary to abdominal discomforts FHT: Moderate variability reactive no decelerations category I tracing Sand Pillow: no Contractions Assessment and plan: Reactive NST, reassuring maternal and status patient discharged to home to follow-up in offfice and complete antibiotic course. See problem list details for additional plan information. Charges/Coding Procedures Urinary/Genital [id number]: 19132-94 non-stress test Interp
== END 2024-03-09 17:35 | disposition home or self-care (01) ==
LOC: WPOUT 14:50 → WP 14:53
PROVIDERS: PCP Internal Medicine; Referring Provider Registered Nurse; Visit Provider Registered Nurse
DX: O23.43 Unspecified infection of urinary tract in pregnancy, third trimester (principal); Z79.4 Long term (current) use of insulin; O36.8130 Decreased fetal movements, third trimester, not applicable or unspecified; Z3A.34 34 weeks gestation of pregnancy; O99.891 Other specified diseases and conditions complicating pregnancy; R10.30 Lower abdominal pain, unspecified; K21.9 Gastro-esophageal reflux disease without esophagitis; J45.909 Unspecified asthma, uncomplicated; Z79.82 Long term (current) use of aspirin; Z79.84 Long term (current) use of oral hypoglycemic drugs; Z79.899 Other long term (current) drug therapy; O99.283 Endocrine, nutritional and metabolic diseases complicating pregnancy, third trimester; O99.613 Diseases of the digestive system complicating pregnancy, third trimester; O99.513 Diseases of the respiratory system complicating pregnancy, third trimester; O24.013 Pre-existing type 1 diabetes mellitus, in pregnancy, third trimester
CPT/HCPCS: 59025; 59050; 81002; 87086; 87088; 99221; G0378

== ENCOUNTER → 2024-03-10 | Outpatient (CLI) | payer MEDICAID, SELFPAY ==
--- NOTE | 2024-03-10 18:09 | US_ITS ---
EXAM: US BIOPHYSICAL PROFILE WITHOUT NON-STRESS TESTING CLINICAL INDICATION: WELL BEING TECHNIQUE: Real-time ultrasound of the maternal pelvis for biophysical profile evaluation with image documentation. COMPARISON: No relevant prior studies available. FINDINGS: POSITION: Cephalic. HEART RATE:145 bpm. AMNIOTIC FLUID: 4 quadrant ROCÍO: 12.4 cm. Largest pocket 5.1 cm. PLACENTA: Anterior, grade 2, no acute complications. BREATHING MOVEMENTS: Present. Score 2/2. GROSS BODY MOVEMENTS: Present. Score 2/2. TONE: Present. Score 2/2. QUALITATIVE AMNIOTIC FLUID VOLUME: Within normal limits. Score 2/2. US/Biophysical Prof W/O Non Stres IMPRESSION: Normal biophysical profile ultrasound. Score 8/8. Electronically Signed: Mee Crawford MD at 2:50 EST ,
== END | disposition home or self-care (01) ==
PROVIDERS: PCP Internal Medicine; Visit Provider Obstetrics & Gynecology
DX: Z34.90 Encounter for supervision of normal pregnancy, unspecified, unspecified trimester (principal)
CPT/HCPCS: 76819

== ENCOUNTER 2024-03-11 14:30 | Outpatient (CLI) | payer MEDICAID, SELFPAY ==
[2024-03-11 14:47] VITALS: BP 140/76; PULSE 100; PULSE 214; RESP 18; TEMP 36.3; O2SAT 81
[2024-03-11 14:53] VITALS: BMI 46.1
[2024-03-11 15:18] VITALS: PULSE 95; O2SAT 98
--- NOTE | 2024-03-11 18:08 | OB.TRI.PN_ITS ---
Progress Notes Date of Service: 03/11/24 Progress Note: Patient presents for triage evaluation secondary to fall at 34 weeks FHT: 140 Moderate variability reactive no decelerations category I tracing [place]: no Contractions Assessment and plan: no uterine activity or vaginal bleeding, Reactive NST, reassuring maternal and status patient discharged to home to follow-up as scheduled in office. See problem list details for additional plan information. Charges/Coding Multi Select Codes Urinary/Genital Urinary/Genital CPT Codes: 85492-23 non-stress test Interp Assessment & Plan (1) Fall: COMMENT: 34 weeks. 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 Slight DD patient:ref to [facility] for management: sees them weekly. (6) Morbid obesity with BMI of 40.0-44.9, adult: (7) Hx of recurrent urinary tract infection: COMMENT: follow cx adjust antibiotic based on culture sensitivity if needed (8) Maternal varicella, non-immune: (9) Supervision of high-risk : QUALIFIERS: Trimester: third trimester Qualified Code(s): O09.93 - Supervision of high risk , unspecified, third trimester COMMENT: PRR, , PARAMJIT 04/22/24, Tyree (10) : QUALIFIERS: Weeks of gestation: 32 weeks Qualified Code(s): Z3A.32 - 32 weeks gestation of COMMENT: anatomy nl, declines genetic & carrier testing (11) Bloating symptom: COMMENT: H. pylori negative per stool studies (12) Cholecystectomy planned: COMMENT: Planning for rescheduled patient's laparoscopic cholecystectomy, however, I remain concerned about patient's lack of a reliable CPAP after general anesthesia?especially in light of her respiratory difficulties while trying to undergo a simple EGD last month. I have advised Asha continue with a low-fat/bland diet and notify us once her CPAP is arrive so that we can schedule her cholecystectomy. Update 08/16/2023: I discussed with patient that we will place an indefinite hold on her surgical plans given her most recent news about probable . I did discuss with both her and her that laparoscopy is deemed to be safe at any trimester of , however, I specifically cautioned about proceeding during the first trimester given to her allergenicity concerns. I stated, optimally?speaking, we would be able to wait for the and delivery before we think about rescheduling. (13) Obstructive sleep apnea: (14) Abnormal biliary HIDA scan: COMMENT: Ejection fraction of 18% is certainly abnormal and consistent with a diagnosis of biliary dyskinesia, however, patient denies any pain with CCK administration. (15) Nausea & vomiting: COMMENT: Nausea symptoms are worse. Stable. Previously negative workup for H. pylori. Now must consider possibility of ?related nausea. (16) Abdominal pain: COMMENT: Patient describes more left upper quadrant tenderness than right upper quadrant tenderness. I find this shift to be favorable?especially in light of patient's shared news about a . I would wonder whether or not this is more related to some ongoing constipation concerns. I have encouraged patient to try to remain regular with her bowel habits. Does seem to be less likely related to her gallbladder given the shift and laterality. As stated above H. pylori testing was negative. (17) GERD (gastroesophageal reflux disease): QUALIFIERS: Esophagitis presence: without esophagitis Qualified Code(s): K21.9 - Gastro-esophageal reflux disease without esophagitis COMMENT: Patient reports stable symptoms of reflux despite doubling PPI. Patient requests transition to lansoprazole. After confirming safety in this request was for failed (18) Cholelithiasis: QUALIFIERS: Cholelithiasis location: gallbladder Cholecystitis presence: without cholecystitis Biliary obstruction: without biliary obstruction Qualified Code(s): K80.20 - Calculus of gallbladder without cholecystitis without obstruction
[2024-03-11 18:11] VITALS: BP 131/78; PULSE 100
== END 2024-03-11 18:24 | disposition home or self-care (01) ==
LOC: WPOUT 14:38 → WP 14:39
PROVIDERS: PCP Internal Medicine; Visit Provider Advanced Practice Midwife
DX: Z04.3 Encounter for examination and observation following other accident (principal); E66.01 Morbid (severe) obesity due to excess calories; O26.893 Other specified pregnancy related conditions, third trimester; Z67.91 Unspecified blood type, Rh negative; O24.013 Pre-existing type 1 diabetes mellitus, in pregnancy, third trimester; O99.213 Obesity complicating pregnancy, third trimester; O99.613 Diseases of the digestive system complicating pregnancy, third trimester; K21.9 Gastro-esophageal reflux disease without esophagitis; Z3A.34 34 weeks gestation of pregnancy; W19.XXXA Unspecified fall, initial encounter
CPT/HCPCS: 59025; 59050; 99221; G0378

== ENCOUNTER 2024-03-16 14:52 | Outpatient (CLI) | payer MEDICAID, SELFPAY ==
[2024-03-16 15:05] VITALS: BP 132/72; PULSE 97; RESP 18; TEMP 36.7; O2SAT 98
[2024-03-16 15:11] VITALS: PULSE 99; O2SAT 97
[2024-03-16 15:13] VITALS: BMI 47.2
--- NOTE | 2024-03-16 15:55 | OB.TRI.HP_ITS ---
HPI - General HPI Narrative ASHA MELGOZA, is a 24 Y/o G1 @ 35 weeks 0 days who presents to L&D after a slip and fall onto her knee and abdomen. No loss of fluid, vaginal bleeding, or dec fm. Her pain was a 7 and after rest and tylenol it came down to a 5/10, which is more her baseline. Maternal Data Information PARAMJIT Calculator Estimated Delivery Date Method Current WG Current Estimate 04/20/24 LMP (Certain) 35w 0d Other Estimates 04/19/24 Ultrasound #1 35w 1d PFSH PFSH Medical History (Updated 03/16/24 @ 17:[address] Shelbi Dewitt, DO) Seasonal allergies Wears glasses Depression Anxiety Dietary restriction Gastric reflux Non-smoker Shortness of breath on exertion Leg cramps Migraine Cholelithiasis Diabetes GERD (gastroesophageal reflux disease) CPAP (continuous positive airway pressure) dependence Sleep apnea Asthma Home Medications ?Medication ?Instructions ?Recorded ?Last Taken ?Type ondansetron 4 mg disintegrating 4 mg PO TID PRN nausea and 12/26/22 Unknown Rx tablet vomiting #21 tabs flash glucose sensor (FreeStyle 09/28/23 Unknown History Shobha 2 Sensor kit) PNV 153-FA 400 mcg-om3 35 mg-dha 1 tab PO DAILY 90 days #90 tabs 11/09/23 03/15/24 22:00 Rx 25 mg-epa 5 mg-fish oil chew tablet aspirin 81 mg tablet,delayed 81 mg PO DAILY 11/25/23 03/16/24 08:00 History release magnesium oxide 400 mg (241.3 mg 400 mg PO DAILY 11/25/23 03/16/24 08:00 History magnesium) tablet pen needle, diabetic 29 gauge x #100 ea 12/13/23 Unknown Rx 1/2 (Ultra-Thin II Insulin Pen [place]) albuterol sulfate 90 mcg/actuation 2 puff inhalation Q4H PRN wheezing 02/07/24 Unknown Rx aerosol inhaler #8.5 grams fluticasone propionate 44 2 puff inhalation BID #10.6 grams 02/08/24 03/16/24 08:00 Rx mcg/actuation HFA aerosol inhaler lansoprazole 30 mg capsule,delayed 30 mg PO DAILY 1 month #30 caps 02/23/24 03/16/24 08:00 Rx release metformin 500 mg tablet,extended 500 mg PO QHS 02/24/24 03/15/24 22:00 History release 24 hr glycopyrrolate 2 mg tablet 2 mg PO DAILY #30 tabs 03/02/24 03/16/24 08:00 Rx famotidine 20 mg tablet (Acid 20 mg PO BID 03/09/24 03/16/24 08:00 History Controller) nitrofurantoin 100 mg PO Q12H 7 days #14 caps 03/10/24 03/16/24 08:00 Rx monohydrate/macrocrystals 100 mg capsule (Macrobid) insulin glargine 100 unit/mL 38 unit subcut QPM 03/16/24 03/15/24 22:00 History subcutaneous solution (Lantus U-100 Insulin) insulin glargine 100 unit/mL 42 unit subcut .Q AM 03/16/24 03/16/24 08:00 History subcutaneous solution (Lantus U-100 Insulin) insulin lispro 100 unit/mL 36 unit subcut BREAKFAST 03/16/24 03/16/24 08:00 History subcutaneous pen (Humalog KwikPen (U-100) Insulin) insulin lispro 100 unit/mL 40 unit subcut LUNCH 03/16/24 03/16/24 12:00 History subcutaneous pen (Humalog KwikPen (U-100) Insulin) insulin lispro 100 unit/mL 62 unit subcut DINNER 03/16/24 03/15/24 18:00 History subcutaneous pen (Humalog KwikPen (U-100) Insulin) Allergy/AdvReac Type Severity Reaction Status Date / Time cetirizine (From [facility]) Allergy Severe Angioedema Verified 03/16/24 15:14 prednisone Allergy Severe Swelling Verified 03/16/24 15:14 adhesive tape Allergy Intermediate Rash Verified 03/16/24 15:14 latex Allergy Intermediate Swelling Verified 03/16/24 15:14 Family History Mother Asthma Diabetes Hypertension High cholesterol Congestive heart failure Arthritis Anxiety and depression CVA (cerebral vascular accident) History of recurrent miscarriages Father Arthritis Surgical History History of esophagogastroduodenoscopy (EGD) No history of previous surgery Social History adopted: No household members: spouse current occupational status: employed current occupation: [employer] pets and animals: No history of recent travel: No sexually active: Yes Smoking Status: Never smoker Electronic Cigarette Use: not used alcohol intake: never substance use type: does not use well-balanced diet: about half the time caffeine: Yes (2) Type: coffee and tea eating out: 1-3 times/week during the past year weight has: increased > 10 lbs frequency: does not exercise asha/taoism: Zoroastrianism seatbelt use: always do you feel safe at home: Yes additional social history: [place] History 1 Elective abortions Hx Para 0 Spontaneous abortions Hx # Term Pregnancies Ectopic pregnancies Hx # Pregnancies Multiple births # of living children Visit Details Expected Delivery Route/Plan Labor Preferences- CB/BF classes: enc labor support person: [place] labor intervention preferences: [] pain management options preferred: undecided cut cord/dad catch: no : no PP control planned: discussed discussed possible routes of delivery and associated risks: [] special requests: [] Plans Covid status: [] Flu vaccine: [] Tdap vaccine: declines Rhogam: given LARC form signed: yes movement and labor precautions reviewed. Problem list reviewed and updated with the most current plan of care details and appropriate orders placed. Relevant counseling for the gestational age provided. Continue routine care and follow up unless otherwise noted in visit notes/problem list details OB Flowsheet Initial Weight: Not Recorded Date -?-?-?-?-?-?-?-?-?-?-?-?- EGA Weight BP Urine Prot -?-?-?-?-?-?-?-?-?-?-?-?- Glucose FHR FuHt Pres Dilation -?-?-?-?-?-?-?-?-?-?-?-?- Effaced St Visit Note 10/04/23 -?-?-?-?-?-?-?-?-?-?-?-?- 11w 4d 256 lb 6 oz 119/81 -?-?-?-?-?-?-?-?-?-?-?-?- 181 -?-?-?-?-?-?-?-?-?-?-?-?- JV_ CRL 46 mm an d consistent with LMP. She is a type 1 DM and having glucose levels as high as 300. fasting are around 140's. She is only on lantus 14 units. will increase lantus to 24 for now and patient will send me a log of fasting and 2 hr pp. consulting MFM. pt has yeast infection currently. recommend OTC cream. JV_ CRL 46 mm and consistent with LMP. She is a type 1 DM and having glucose levels as high as 300. fasting are around 140's. She is only on lantus 14 units. will increase lantus to 24 for now and patient will send me a log of fasting and 2 hr pp. consulting MFM. pt has yeast infection currently. recommend OTC cream. desires NIPT and carrier screening. 11/03/23 -?-?-?-?-?-?-?-?-?-?-?-?- 15w 6d 261 lb 2 oz 120/81 Nega tive -?-?-?-?-?-?-?-?-?-?-?-?- Negative 160 -?-?-?-?-?-?-?-?-?-?-?-?- MH-No VB. Brief US to confirm FHT. Not checking glucose QID. Today FBS was 135, 2 hr pp was 218. Wrote out sheet for tracking readings and food. Ref to [facility]. Call 5 days with readings. 11/17/23 -?-?-?-?-?-?-?-?-?-?-?-?- 17w 6d 265 lb 8 oz 121/83 Nega tive -?-?-?-?-?-?-?-?-?-?-?-?- Negative 145 -?-?-?-?-?-?-?-?-?-?-?-?- JV- fasting leve ls are all over 130's- 160's. 2 hr pp are all elevated as high as 180. lantus 24 at bedtime, humalog is 15, 18, 15. increasing lantus to 30, novolog to 20,18,20. has anatomy scan scheduled for next week. will forward a note to [facility] as a heads up. 12/15/23 -?-?-?-?-?-?-?-?-?-?-?-?- 21w 6d 270 lb 109/72 Negative -?-?-?-?-?-?-?-?-?-?-?-?- Negative 155 -?-?-?-?-?-?-?-?-?-?-?-?- JV- seeing MFM n ow for glucose management. They have her on 42 of lantus and of log. Fasting levels are getting better. last few days were 111, 110. 2 hr pp also improving . 01/19/24 -?-?-?-?-?-?-?-?-?-?-?-?- 26w 6d 266 lb 4 oz 132/84 Trac e -?-?-?-?-?-?-?-?-?-?-?-?- Negative 160 -?-?-?-?-?-?-?-?-?-?-?-?- KW- no vb/lof/ct x, good fm. change in insulin dose- Lantus 34/34 AM and PM. log . will get 28 wk labs at next appt. viral illness today. encouraged safe meds during , hydration and rest. 02/02/24 -?-?-?-?-?-?-?-?-?-?-?-?- 28w 6d 266 lb 8 oz 118/80 -?-?-?-?-?-?-?-?-?-?-?-?- 150 29 -?-?-?-?-?-?-?-?-?-?-?-?- JV- pt has bronc hitis. recommend using her inhaler q 4 hrs. She is on a steroid dose pack and an inhaled steroid. 28 week labs today. she is following with [facility]. no changes in insulin. 02/16/24 -?-?-?-?-?-?-?-?-?-?-?-?- 30w 6d 276 lb 2 oz 118/82 Nega tive -?-?-?-?-?-?-?-?-?-?-?-?- Negative 145 31 -?-?-?-?-?-?-?-?-?-?-?-?- MH-No vB, LOF. S till with cough, congestion. Feels short of breath. Will go to [facility] today 02/28/24 -?-?-?-?-?-?-?-?-?-?-?-?- 32w 4d 282 lb 8 oz 130/83 Nega tive -?-?-?-?-?-?-?-?-?-?-?-?- Negative 140 -?-?-?-?-?-?-?-?-?-?-?-?- KW- work in for SM. no vb/lof/ctx. good fm. insulin is now . lantus is 48/36. had BPP today with MFM and sees them every wednesday. had 10/13 Bpp today. will need BPPs scheduled on . 03/15/24 -?-?-?-?-?-?-?-?-?-?-?-?- 34w 6d 297 lb 130/88 Negative -?-?-?-?-?-?-?-?-?-?-?-?- Negative 135 36 -?-?-?-?-?-?-?-?-?-?-?-?- SM- on lantus 42 /38. humalog is 36/40/62. ROS Constitutional Constitutional: Reports systems reviewed and no addt'l complaints, except as documented Gastrointestinal Gastrointestinal: Denies bloating, constipation, cramping, diarrhea, nausea or vomiting Genitourinary Genitourinary: Reports other Details: Denies vaginal odor, vaginal bleeding, or vaginal discharge ; Denies difficulty urinating or flank pain NST FHR Rate Baby A Baseline: 110 Variability:: Moderate Accelerations:: 15 x 15 Decelerations:: None NST Reactive:: Yes FHR Category:: Category I Assessment & Plan (1) Trauma during : (2) Rh negative status during : QUALIFIERS: Trimester: third trimester Qualified Code(s): O26.893 - Other specified related conditions, third trimester; Z67.91 - Unspecified blood type, Rh negative COMMENT: RHogam PRN and at 28 weeks (3) 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 Slight DD patient:ref to [facility] for management: sees them weekly. (5) Morbid obesity with BMI of 40.0-44.9, adult: (6) Maternal varicella, non-immune: (7) Supervision of high-risk : QUALIFIERS: Trimester: third trimester Qualified Code(s): O09.93 - Supervision of high risk , unspecified, third trimester COMMENT: PRR, , PARAMJIT 04/20/24, girl Cr [place] (8) : QUALIFIERS: Weeks of gestation: 34 weeks Qualified Code(s): Z3A.34 - 34 weeks gestation of COMMENT: anatomy nl, declines genetic & carrier testing (9) Bloating symptom: COMMENT: H. pylori negative per stool studies (10) Cholecystectomy planned: COMMENT: Planning for rescheduled patient's laparoscopic cholecystectomy, however, I remain concerned about patient's lack of a reliable CPAP after general anesthesia?especially in light of her respiratory difficulties while trying to undergo a simple EGD last month. I have advised Asha continue with a low-fat/bland diet and notify us once her CPAP is arrive so that we can schedule her cholecystectomy. Update 08/16/2023: I discussed with patient that we will place an indefinite hold on her surgical plans given her most recent news about probable . I did discuss with both her and her that laparoscopy is deemed to be safe at any trimester of , however, I specifically cautioned about proceeding during the first trimester given to her allergenicity concerns. I stated, optimally?speaking, we would be able to wait for the and delivery before we think about rescheduling. (11) Obstructive sleep apnea: (12) Abnormal biliary HIDA scan: COMMENT: Ejection fraction of 18% is certainly abnormal and consistent with a diagnosis of biliary dyskinesia, however, patient denies any pain with CCK administration. (13) Nausea & vomiting: COMMENT: Nausea symptoms are worse. Stable. Previously negative workup for H. pylori. Now must consider possibility of ?related nausea. (14) Abdominal pain: COMMENT: Patient describes more left upper quadrant tenderness than right upper quadrant tenderness. I find this shift to be favorable?especially in light of patient's shared news about a . I would wonder whether or not this is more related to some ongoing constipation concerns. I have encouraged patient to try to remain regular with her bowel habits. Does seem to be less likely related to her gallbladder given the shift and laterality. As stated above H. pylori testing was negative. (15) GERD (gastroesophageal reflux disease): QUALIFIERS: Esophagitis presence: without esophagitis Qualified Code(s): K21.9 - Gastro-esophageal reflux disease without esophagitis COMMENT: Patient reports stable symptoms of reflux despite doubling PPI. Patient requests transition to lansoprazole. After confirming safety in this request was for failed (16) Cholelithiasis: QUALIFIERS: Cholelithiasis location: gallbladder Cholecystitis presence: without cholecystitis Biliary obstruction: without biliary obstruction Qualified Code(s): K80.20 - Calculus of gallbladder without cholecystitis without obstruction PLAN: Plan NST reactive, pain minimal, and blood work stable ok to dc to home Charges/Coding Multi Select Codes Visit Charges Office Visit/Consults: 55209 OV L3 Est 20min Urinary/Genital Urinary/Genital CPT Codes: 35273-43 non-stress test Interp
[2024-03-16] MEDS: Acetaminophen 500 MG Tablet 1000 MG PO (16:30)
[2024-03-16 16:32] VITALS: BP 132/78; PULSE 93; PULSE 96; O2SAT 98
[2024-03-16 16:32] LABS: Mean Corp Hgb Conc 32.4 g/dL (32-36); Mean Corpuscular Hgb 26.9 pg (27.0-32.0); Mean Platelet Vol. 11.2 fl (6.2-12.0); Platelet Count 241 K/mm3 (150-450); RBC Distribution Width CV 14.5 % (11.6-14.6); RBC Distribution Width SD 43.5 fl (35.1-43.9); Red Blood Count 4.46 M/mm3 (4.2-5.4); White Blood Count 13.1 K/mm3 (4.4-11.0)
[2024-03-16 16:40] LABS: Fibrinogen 546 mg/dl (203-444)
== END 2024-03-16 17:37 | disposition home or self-care (01) ==
LOC: WPOUT 14:53 → WP 14:55
PROVIDERS: PCP Internal Medicine; Referring Provider Obstetrics & Gynecology; Visit Provider Obstetrics & Gynecology
DX: Z01.30 Encounter for examination of blood pressure without abnormal findings (principal); E66.01 Morbid (severe) obesity due to excess calories; Z79.4 Long term (current) use of insulin; E10.9 Type 1 diabetes mellitus without complications; O9A.213 Injury, poisoning and certain other consequences of external causes complicating pregnancy, third trimester; O99.891 Other specified diseases and conditions complicating pregnancy; M25.569 Pain in unspecified knee; R10.9 Unspecified abdominal pain; W01.0XXA Fall on same level from slipping, tripping and stumbling without subsequent striking against object, initial encounter; Z91.148 Patient's other noncompliance with medication regimen for other reason; K21.9 Gastro-esophageal reflux disease without esophagitis; J45.909 Unspecified asthma, uncomplicated; Z79.84 Long term (current) use of oral hypoglycemic drugs; Z79.899 Other long term (current) drug therapy; O26.893 Other specified pregnancy related conditions, third trimester; Z67.91 Unspecified blood type, Rh negative; O24.013 Pre-existing type 1 diabetes mellitus, in pregnancy, third trimester; Z3A.35 35 weeks gestation of pregnancy; O99.283 Endocrine, nutritional and metabolic diseases complicating pregnancy, third trimester; O99.513 Diseases of the respiratory system complicating pregnancy, third trimester; O99.213 Obesity complicating pregnancy, third trimester; O99.613 Diseases of the digestive system complicating pregnancy, third trimester; Z79.82 Long term (current) use of aspirin; Z79.51 Long term (current) use of inhaled steroids
CPT/HCPCS: 36415; 59025; 59050; 82565; 82570; 84156; 84450; 84460; 84550; 85027; 85384; 99221; G0378

== ENCOUNTER 2024-03-16 22:58 | Outpatient (CLI) | payer MEDICAID, SELFPAY ==
[2024-03-16 23:11] VITALS: PULSE 89; O2SAT 98
[2024-03-16 23:12] VITALS: RESP 16; TEMP 36.8
[2024-03-16 23:15] VITALS: BP 142/89; PULSE 86
[2024-03-16 23:22] VITALS: BMI 47.3
--- NOTE | 2024-03-16 23:35 | OB.TRI.HP_ITS ---
HPI - General General Date of Admission: 03/21/24 HPI Narrative ASHA MELGOZA, is a 24 y/o @ 35 weeks gestation who presents to OB triage for the second time today. earlier today she was here for a fall. She went home and took her blood pressure on a wrist cuff and noticed that it read 160/118. She denies headaches, visual changes, abdominal pain, nausea, vomiting. She is a type diabetic on insulin and this has been complicated with non-compliance, but mostly due to misunderstanding her medical diagnosis and management needed. She is followed by MFM and endocrinology now and has been doing well with her glucose logs. There remains to be a learning deficit Maternal Data Information PARAMJIT Calculator Estimated Delivery Date Method Current WG Current Estimate 04/20/24 LMP (Certain) 35w 5d Other Estimates 04/19/24 Ultrasound #1 35w 6d PFSH PFS Medical History (Updated 03/16/24 @ 17:[address] Shelbi Dewitt, DO) Seasonal allergies Wears glasses Depression Anxiety Dietary restriction Gastric reflux Non-smoker Shortness of breath on exertion Leg cramps Migraine Cholelithiasis Diabetes GERD (gastroesophageal reflux disease) CPAP (continuous positive airway pressure) dependence Sleep apnea Asthma Home Medications ?Medication ?Instructions ?Recorded ?Last Taken ?Type ondansetron 4 mg disintegrating 4 mg PO TID PRN nausea and 12/26/22 02/20/24 Rx tablet vomiting #21 tabs flash glucose sensor (FreeStyle 09/28/23 Unknown History Shobha 2 Sensor kit) PNV 153-FA 400 mcg-om3 35 mg-dha 1 tab PO DAILY 90 days #90 tabs 11/09/23 03/18/24 Rx 25 mg-epa 5 mg-fish oil chew tablet aspirin 81 mg tablet,delayed 81 mg PO DAILY 11/25/23 03/19/24 History release magnesium oxide 400 mg (241.3 mg 400 mg PO DAILY 11/25/23 03/19/24 History magnesium) tablet pen needle, diabetic 29 gauge x #100 ea 12/13/23 Unknown Rx 1/2 (Ultra-Thin II Insulin Pen [place]) albuterol sulfate 90 mcg/actuation 2 puff inhalation Q4H PRN wheezing 02/07/24 02/20/24 Rx aerosol inhaler #8.5 grams fluticasone propionate 44 2 puff inhalation BID #10.6 grams 02/08/24 03/19/24 Rx mcg/actuation HFA aerosol inhaler lansoprazole 30 mg capsule,delayed 30 mg PO DAILY 1 month #30 caps 02/23/24 03/19/24 Rx release metformin 500 mg tablet,extended 500 mg PO QHS 02/24/24 03/19/24 History release 24 hr glycopyrrolate 2 mg tablet 2 mg PO DAILY #30 tabs 03/02/24 03/19/24 Rx famotidine 20 mg tablet (Acid 20 mg PO BID 03/09/24 03/19/24 History Controller) insulin glargine 100 unit/mL 38 unit subcut QPM 03/16/24 03/18/24 History subcutaneous solution (Lantus U-100 Insulin) insulin glargine 100 unit/mL 42 unit subcut .Q AM 03/16/24 03/19/24 History subcutaneous solution (Lantus U-100 Insulin) insulin lispro 100 unit/mL 36 unit subcut BREAKFAST 03/16/24 03/19/24 History subcutaneous pen (Humalog KwikPen (U-100) Insulin) insulin lispro 100 unit/mL 40 unit subcut LUNCH 03/16/24 03/19/24 History subcutaneous pen (Humalog KwikPen (U-100) Insulin) insulin lispro 100 unit/mL 62 unit subcut DINNER 03/16/24 03/18/24 History subcutaneous pen (Humalog KwikPen (U-100) Insulin) Allergy/AdvReac Type Severity Reaction Status Date / Time cetirizine (From [facility]) Allergy Severe Angioedema Verified 03/19/24 14:19 prednisone Allergy Severe Swelling Verified 03/19/24 14:19 adhesive tape Allergy Intermediate Rash Verified 03/19/24 14:19 latex Allergy Intermediate Swelling Verified 03/19/24 14:19 Family History Mother Asthma Diabetes Hypertension High cholesterol Congestive heart failure Arthritis Anxiety and depression CVA (cerebral vascular accident) History of recurrent miscarriages Father Arthritis Surgical History History of esophagogastroduodenoscopy (EGD) No history of previous surgery Social History adopted: No household members: spouse current occupational status: employed current occupation: [employer] pets and animals: No history of recent travel: No sexually active: Yes Smoking Status: Never smoker Electronic Cigarette Use: not used alcohol intake: never substance use type: does not use well-balanced diet: about half the time caffeine: Yes (2) Type: coffee and tea eating out: 1-3 times/week during the past year weight has: increased > 10 lbs frequency: does not exercise asha/pentecostalism: Jehovah'S Witness seatbelt use: always do you feel safe at home: Yes additional social history: [place] History 1 Elective abortions Hx Para 0 Spontaneous abortions Hx # Term Pregnancies Ectopic pregnancies Hx # Pregnancies Multiple births # of living children Visit Details Expected Delivery Route/Plan Labor Preferences- CB/BF classes: enc labor support person: Tyree labor intervention preferences: [] pain management options preferred: undecided cut cord/dad catch: no : no PP control planned: discussed discussed possible routes of delivery and associated risks: [] special requests: [] Plans Covid status: [] Flu vaccine: [] Tdap vaccine: declines Rhogam: given LARC form signed: yes movement and labor precautions reviewed. Problem list reviewed and updated with the most current plan of care details and appropriate orders placed. Relevant counseling for the gestational age provided. Continue routine care and follow up unless otherwise noted in visit notes/problem list details OB Flowsheet Initial Weight: Not Recorded Date -?-?-?-?-?-?-?-?-?-?-?-?- EGA Weight BP Urine Prot -?-?-?-?-?-?-?-?-?-?-?-?- Glucose FHR FuHt Pres Dilation -?-?-?-?-?-?-?-?-?-?-?-?- Effaced St Visit Note 10/04/23 -?-?-?-?-?-?-?-?--?-?-?-?- 11w 4d 256 lb 6 oz 119/81 -?-?-?-?-?-?-?-?-?-?-?-?- 181 -?-?-?-?-?-?-?-?-?-?-?-?- JV_ CRL 46 mm an d consistent with LMP. She is a type 1 DM and having glucose levels as high as 300. fasting are around 140's. She is only on lantus 14 units. will increase lantus to 24 for now and patient will send me a log of fasting and 2 hr pp. consulting M. pt has yeast infection currently. recommend OTC cream. JV_ CRL 46 mm and consistent with LMP. She is a type 1 DM and having glucose levels as high as 300. fasting are around 140's. She is only on lantus 14 units. will increase lantus to 24 for now and patient will send me a log of fasting and 2 hr pp. consulting MFM. pt has yeast infection currently. recommend OTC cream. desires NIPT and carrier screening. 11/03/23 -?-?-?-?-?-?-?-?-?-?-?-?- 15w 6d 261 lb 2 oz 120/81 Nega tive -?-?-?-?-?-?-?-?-?-?-?-?- Negative 160 -?-?-?-?-?-?-?-?-?-?-?-?- MH-No VB. Brief US to confirm FHT. Not checking glucose QID. Today FBS was 135, 2 hr pp was 218. Wrote out sheet for tracking readings and food. Ref to [facility]. Call 5 days with readings. 11/17/23 -?-?-?-?-?-?-?-?-?-?-?-?- 17w 6d 265 lb 8 oz 121/83 Nega tive -?-?-?-?-?-?-?-?-?-?-?-?- Negative 145 -?-?-?-?-?-?-?-?-?-?-?-?- JV- fasting leve ls are all over 130's- 160's. 2 hr pp are all elevated as high as 180. lantus 24 at bedtime, humalog is 15, 18, 15. increasing lantus to 30, novolog to 20,18,20. has anatomy scan scheduled for next week. will forward a note to [facility] as a heads up. 12/15/23 -?-?-?-?-?-?-?-?-?-?-?-?- 21w 6d 270 lb 109/72 Negative -?-?-?-?-?-?-?-?-?-?-?-?- Negative 155 -?-?-?-?-?-?-?-?-?-?-?-?- JV- seeing MFM n ow for glucose management. They have her on 42 of lantus and of log. Fasting levels are getting better. last few days were 111, 110. 2 hr pp also improving . 01/19/24 -?-?-?-?-?-?-?-?-?-?-?-?- 26w 6d 266 lb 4 oz 132/84 Trac e -?-?-?-?-?-?-?-?-?-?-?-?- Negative 160 -?-?-?-?-?-?-?-?-?-?-?-?- KW- no vb/lof/ct x, good fm. change in insulin dose- Lantus 34/34 AM and PM. log . will get 28 wk labs at next appt. viral illness today. encouraged safe meds during , hydration and rest. 02/02/24 -?-?-?-?-?-?-?-?-?-?-?-?- 28w 6d 266 lb 8 oz 118/80 -?-?-?-?-?-?-?-?-?-?-?-?- 150 29 -?-?-?-?-?-?-?-?-?-?-?-?- JV- pt has bronc hitis. recommend using her inhaler q 4 hrs. She is on a steroid dose pack and an inhaled steroid. 28 week labs today. she is following with [facility]. no changes in insulin. 02/16/24 -?-?-?-?-?-?-?-?-?-?-?-?- 30w 6d 276 lb 2 oz 118/82 Nega tive -?-?-?-?-?-?-?-?-?-?-?-?- Negative 145 31 -?-?-?-?-?-?-?-?-?-?-?-?- MH-No vB, LOF. S till with cough, congestion. Feels short of breath. [facility] today 02/28/24 -?-?-?-?-?-?-?-?-?-?-?-?- 32w 4d 282 lb 8 oz 130/83 Nega tive -?-?-?-?-?-?-?-?-?-?-?-?- Negative 140 -?-?-?-?-?-?-?-?-?-?-?-?- KW- work in for SM. no vb/lof/ctx. good fm. insulin is now . lantus is 48/36. had BPP today with MFM and sees them every wednesday. had 10/13 Bpp today. will need BPPs scheduled on . 03/15/24 -?-?-?-?-?-?-?-?-?-?-?-?- 34w 6d 297 lb 130/88 Negative -?-?-?-?-?-?-?-?-?-?-?-?- Negative 135 36 -?-?-?-?-?-?-?-?-?-?-?-?- SM- on lantus 42 /38. humalog is 36/40/62. ROS Constitutional Constitutional: Reports systems reviewed and no addt'l complaints, except as documented Gastrointestinal Gastrointestinal: Denies bloating, constipation, cramping, diarrhea, nausea or vomiting Genitourinary Genitourinary: Reports other Details: Denies vaginal odor, vaginal bleeding, or vaginal discharge ; Denies difficulty urinating or flank pain Physical Exam HEENT normocephalic Resp normal respiratory effort and normal air movement no CVA tenderness Extremity normal to inspection General Extremity: edema bilateral (trace ) NST FHR Rate Baby A Baseline: 120 Variability:: Moderate Accelerations:: 15 x 15 Decelerations:: None NST Reactive:: Yes FHR Category:: Category I Assessment & Plan (1) Depression: COMMENT: counseling recommend, consider medication . 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 Slight DD patient:ref to [facility] for management: sees them weekly. (6) Morbid obesity with BMI of 40.0-44.9, adult: (7) Hx of recurrent urinary tract infection: COMMENT: follow cx adjust antibiotic based on culture sensitivity if needed (8) Maternal varicella, non-immune: (9) Supervision of high-risk : QUALIFIERS: Trimester: third trimester Qualified Code(s): O09.93 - Supervision of high risk , unspecified, third trimester COMMENT: PRR, , PARAMJIT 04/20/24, girl Cr Tyree (10) : QUALIFIERS: Weeks of gestation: 34 weeks Qualified Code(s): Z3A.34 - 34 weeks gestation of COMMENT: anatomy nl, declines genetic & carrier testing (11) Bloating symptom: COMMENT: H. pylori negative per stool studies (12) Cholecystectomy planned: COMMENT: Planning for rescheduled patient's laparoscopic cholecystectomy, however, I remain concerned about patient's lack of a reliable CPAP after general anesthesia?especially in light of her respiratory difficulties while trying to undergo a simple EGD last month. I have advised Asha continue with a low-fat/bland diet and notify us once her CPAP is arrive so that we can schedule her cholecystectomy. Update 08/16/2023: I discussed with patient that we will place an indefinite hold on her surgical plans given her most recent news about probable . I did discuss with both her and her that laparoscopy is deemed to be safe at any trimester of , however, I specifically cautioned about proceeding during the first trimester given to her allergenicity concerns. I stated, optimally?speaking, we would be able to wait for the and delivery before we think about rescheduling. (13) Obstructive sleep apnea: (14) Abnormal biliary HIDA scan: COMMENT: Ejection fraction of 18% is certainly abnormal and consistent with a diagnosis of biliary dyskinesia, however, patient denies any pain with CCK administration. (15) Nausea & vomiting: COMMENT: Nausea symptoms are worse. Stable. Previously negative workup for H. pylori. Now must consider possibility of ?related nausea. (16) Abdominal pain: COMMENT: Patient describes more left upper quadrant tenderness than right upper quadrant tenderness. I find this shift to be favorable?especially in light of patient's shared news about a . I would wonder whether or not this is more related to some ongoing constipation concerns. I have encouraged patient to try to remain regular with her bowel habits. Does seem to be less likely related to her gallbladder given the shift and laterality. As stated above H. pylori testing was negative. (17) GERD (gastroesophageal reflux disease): QUALIFIERS: Esophagitis presence: without esophagitis Qualified Code(s): K21.9 - Gastro-esophageal reflux disease without esophagitis COMMENT: Patient reports stable symptoms of reflux despite doubling PPI. Patient requests transition to lansoprazole. After confirming safety in this request was for failed (18) Cholelithiasis: QUALIFIERS: Cholelithiasis location: gallbladder Cholecystitis presence: without cholecystitis Biliary obstruction: without biliary obstruction Qualified Code(s): K80.20 - Calculus of gallbladder without cholecystitis without obstruction PLAN: Plan elevated blood pressure at home was likely a false read due to the wrist cuff- pressures here are 130's/70's which is her baseline and PIH labs were all normal. dc to home Charges/Coding Multi Select Codes Visit Charges Office Visit/Consults: 14939 OV L3 Est 20min Urinary/Genital Urinary/Genital CPT Codes: 89376-26 non-stress test Interp
[2024-03-16 23:36] VITALS: BP 136/90; PULSE 93
[2024-03-16 23:54] LABS: AST(SGOT) 28 U/L (15-37); Alanine Aminotransfer ALT/SGPT 30 U/L (13-56); Creatinine, Serum 0.68 mg/dL (0.55-1.02); EST Glomerular Filtration Rate 111 mL/min (>60); Est Glom Filt Rate - Afr Amer 134 mL/min (>60); Estimated Creatinine Clearance 177.25 ml/min
[2024-03-17 00:01] VITALS: BP 126/72; PULSE 81
[2024-03-17 00:01] LABS: Protein, Urine (Random) 14.3 mg/dL (<11.9); Protein:Creat Ratio 101 mg/g CRE (0-200)
[2024-03-17 00:04] LABS: Hematocrit 36.3 % (37-47); Hemoglobin 11.6 g/dL (12.0-15.0); Mean Corpuscular Hgb 26.4 pg (27.0-32.0); Mean Corpuscular Volume 82.7 fL (81-99); Mean Platelet Vol. 11.6 fl (6.2-12.0); Platelet Count 235 K/mm3 (150-450); RBC Distribution Width CV 14.4 % (11.6-14.6); Red Blood Count 4.39 M/mm3 (4.2-5.4); White Blood Count 12.1 K/mm3 (4.4-11.0)
[2024-03-17 00:17] VITALS: BP 126/72; PULSE 77
== END 2024-03-17 00:45 | disposition home or self-care (01) ==
LOC: WPOUT 23:00 → WP 23:00
PROVIDERS: PCP Internal Medicine; Referring Provider Obstetrics & Gynecology; Visit Provider Obstetrics & Gynecology
DX: Z01.30 Encounter for examination of blood pressure without abnormal findings (principal); E66.01 Morbid (severe) obesity due to excess calories; Z79.4 Long term (current) use of insulin; E10.9 Type 1 diabetes mellitus without complications; Z91.148 Patient's other noncompliance with medication regimen for other reason; K21.9 Gastro-esophageal reflux disease without esophagitis; J45.909 Unspecified asthma, uncomplicated; Z79.84 Long term (current) use of oral hypoglycemic drugs; Z79.899 Other long term (current) drug therapy; O26.893 Other specified pregnancy related conditions, third trimester; Z67.91 Unspecified blood type, Rh negative; O24.013 Pre-existing type 1 diabetes mellitus, in pregnancy, third trimester; Z3A.35 35 weeks gestation of pregnancy; O99.283 Endocrine, nutritional and metabolic diseases complicating pregnancy, third trimester; O99.513 Diseases of the respiratory system complicating pregnancy, third trimester; O99.213 Obesity complicating pregnancy, third trimester; O99.613 Diseases of the digestive system complicating pregnancy, third trimester; Z79.82 Long term (current) use of aspirin; Z79.51 Long term (current) use of inhaled steroids
CPT/HCPCS: 36415; 59025; 59050 ×2; 82565; 82570; 84156; 84450; 84460; 84550; 85027; G0378 ×2; 99221

== ENCOUNTER → 2024-03-17 | Outpatient (CLI) | payer MEDICAID, SELFPAY ==
--- NOTE | 2024-03-17 17:09 | US_ITS ---
STUDY: OBSTETRICAL ULTRASOUND - BIOPHYSICAL PROFILE REASON FOR EXAM: Female, 24 years old well being LMP: July 15, 2023. PRIOR ULTRASOUND: Comparison is made with prior study dated March 10, 2024. TECHNIQUE: Transabdominal TECHNICAL QUALITY: Adequate. FINDINGS: There is a single intrauterine fetus. The fetus is in a cephalic presentation. There is demonstrated cardiac activity with a heart rate of 142 bpm. There is a normal amniotic fluid volume. The largest amniotic fluid pocket measures 6.6 cm. The amniotic fluid index (ROCÍO) is 12.3 cm. The placenta is anterior in location and is not low lying. There are Grade 2 placental changes. Age by LMP: 35 weeks, 1 days. PARAMJIT by LMP: April 20, 2024.. BIOPHYSICAL PROFILE: Breathing Movements (FBM): 2 Gross Body Movements (GBM): 2 Tone (FT): 2 Amniotic Fluid Volume (AFV): 2 TOTAL SCORE: 8 / 8 US/Biophysical Prof W/O Non Stres IMPRESSION: Normal biophysical profile of 8/8. Electronically Signed: Daniel Garcia MD at 14:29 EST ,
== END | disposition home or self-care (01) ==
LOC: US 17:04
PROVIDERS: PCP Internal Medicine; Referring Provider Obstetrics & Gynecology; Visit Provider Obstetrics & Gynecology
DX: O24.011 Pre-existing type 1 diabetes mellitus, in pregnancy, first trimester (principal); Z3A.00 Weeks of gestation of pregnancy not specified

== ENCOUNTER 2024-03-19 13:50 | Outpatient (CLI) | payer MEDICAID, SELFPAY ==
[2024-03-19 14:08] VITALS: BP 133/64; PULSE 90
[2024-03-19 14:16] VITALS: BP 124/64; PULSE 81
[2024-03-19 14:37] VITALS: BMI 47.5
[2024-03-19 15:10] LABS: Hematocrit 38.6 % (37-47); Hemoglobin 12.6 g/dL (12.0-15.0); Mean Corp Hgb Conc 32.6 g/dL (32-36); Mean Corpuscular Hgb 26.9 pg (27.0-32.0); Mean Corpuscular Volume 82.5 fL (81-99); Mean Platelet Vol. 11.8 fl (6.2-12.0); Platelet Count 231 K/mm3 (150-450); RBC Distribution Width CV 14.6 % (11.6-14.6); RBC Distribution Width SD 43.1 fl (35.1-43.9); Red Blood Count 4.68 M/mm3 (4.2-5.4); White Blood Count 12.5 K/mm3 (4.4-11.0)
[2024-03-19 15:32] LABS: AST(SGOT) 24 U/L (15-37); Alanine Aminotransfer ALT/SGPT 31 U/L (13-56); Creatinine, Serum 0.64 mg/dL (0.55-1.02); EST Glomerular Filtration Rate 119 mL/min (>60); Est Glom Filt Rate - Afr Amer 145 mL/min (>60); Estimated Creatinine Clearance 188.92 ml/min; Uric Acid 4.9 mg/dL (2.6-6.0)
[2024-03-19 15:49] LABS: Protein, Urine (Random) 8.1 mg/dL (<11.9); Protein:Creat Ratio 128 mg/g CRE (0-200)
--- NOTE | 2024-03-19 16:11 | NURSING ---
Narcisa delaneym informed of BP's and lab results, and assessment. d/c orders received. Pt to follow up in office this week.
--- NOTE | 2024-03-24 12:49 | OB.TRI.HP_ITS ---
HPI - General General Date of Admission: 03/19/24 Chief Complaint: headache HPI Narrative FRED MELGOZA, is a 24 F who presents at 35.4 with headaches. active fetus. denies ruq pain/visual changes. Maternal Data Information PARAMJIT Calculator Estimated Delivery Date Method Current WG Current Estimate 04/20/24 LMP (Certain) 36w 1d Other Estimates 04/19/24 Ultrasound #1 36w 2d PFSH [facility] Medical History (Updated 03/24/24 @ 12:52 by Ana uL CNM) Seasonal allergies Wears glasses Depression Anxiety Dietary restriction Gastric reflux Non-smoker Shortness of breath on exertion Leg cramps Migraine Cholelithiasis Diabetes GERD (gastroesophageal reflux disease) CPAP (continuous positive airway pressure) dependence Sleep apnea Asthma Home Medications ?Medication ?Instructions ?Recorded ?Last Taken ?Type ondansetron 4 mg disintegrating 4 mg PO TID PRN nausea and 12/26/22 02/20/24 Rx tablet vomiting #21 tabs flash glucose sensor (FreeStyle 09/28/23 Unknown History Shobha 2 Sensor kit) PNV 153-FA 400 mcg-om3 35 mg-dha 1 tab PO DAILY 90 days #90 tabs 11/09/23 03/18/24 Rx 25 mg-epa 5 mg-fish oil chew tablet aspirin 81 mg tablet,delayed 81 mg PO DAILY 11/25/23 03/19/24 History release magnesium oxide 400 mg (241.3 mg 400 mg PO DAILY 11/25/23 03/19/24 History magnesium) tablet pen needle, diabetic 29 gauge x #100 ea 12/13/23 Unknown Rx 1/2 (Ultra-Thin II Insulin Pen Dickson) albuterol sulfate 90 mcg/actuation 2 puff inhalation Q4H PRN wheezing 02/07/24 02/20/24 Rx aerosol inhaler #8.5 grams fluticasone propionate 44 2 puff inhalation BID #10.6 grams 02/08/24 03/19/24 Rx mcg/actuation HFA aerosol inhaler lansoprazole 30 mg capsule,delayed 30 mg PO DAILY 1 month #30 caps 02/23/24 03/19/24 Rx release metformin 500 mg tablet,extended 500 mg PO QHS 02/24/24 03/19/24 History release 24 hr glycopyrrolate 2 mg tablet 2 mg PO DAILY #30 tabs 03/02/24 03/19/24 Rx famotidine 20 mg tablet (Acid 20 mg PO BID 03/09/24 03/19/24 History Controller) insulin glargine 100 unit/mL 38 unit subcut QPM 03/16/24 03/18/24 History subcutaneous solution (Lantus U-100 Insulin) insulin glargine 100 unit/mL 42 unit subcut .Q AM 03/16/24 03/19/24 History subcutaneous solution (Lantus U-100 Insulin) insulin lispro 100 unit/mL 36 unit subcut BREAKFAST 03/16/24 03/19/24 History subcutaneous pen (Humalog KwikPen (U-100) Insulin) insulin lispro 100 unit/mL 40 unit subcut LUNCH 03/16/24 03/19/24 History subcutaneous pen (Humalog KwikPen (U-100) Insulin) insulin lispro 100 unit/mL 62 unit subcut DINNER 03/16/24 03/18/24 History subcutaneous pen (Humalog KwikPen (U-100) Insulin) Allergy/AdvReac Type Severity Reaction Status Date / Time cetirizine (From [facility]) Allergy Severe Angioedema Verified 03/19/24 14:19 prednisone Allergy Severe Swelling Verified 03/19/24 14:19 adhesive tape Allergy Intermediate Rash Verified 03/19/24 14:19 latex Allergy Intermediate Swelling Verified 03/19/24 14:19 Family History Mother Asthma Diabetes Hypertension High cholesterol Congestive heart failure Arthritis Anxiety and depression CVA (cerebral vascular accident) History of recurrent miscarriages Father Arthritis Surgical History History of esophagogastroduodenoscopy (EGD) No history of previous surgery Social History adopted: No household members: spouse current occupational status: employed current occupation: [employer] pets and animals: No history of recent travel: No sexually active: Yes Smoking Status: Never smoker Electronic Cigarette Use: not used alcohol intake: never substance use type: does not use well-balanced diet: about half the time caffeine: Yes (2) Type: coffee and tea eating out: 1-3 times/week during the past year weight has: increased > 10 lbs frequency: does not exercise fred/yazidi: Bahai seatbelt use: always do you feel safe at home: Yes additional social history: [place] History 1 Elective abortions Hx Para 0 Spontaneous abortions Hx # Term Pregnancies Ectopic pregnancies Hx # Pregnancies Multiple births # of living children Visit Details Expected Delivery Route/Plan Labor Preferences- CB/BF classes: enc labor support person: [place] labor intervention preferences: [] pain management options preferred: undecided cut cord/dad catch: no : no PP control planned: discussed discussed possible routes of delivery and associated risks: [] special requests: [] Plans Covid status: [] Flu vaccine: [] Tdap vaccine: declines Rhogam: given LARC form signed: yes movement and labor precautions reviewed. Problem list reviewed and updated with the most current plan of care details and appropriate orders placed. Relevant counseling for the gestational age provided. Continue routine care and follow up unless otherwise noted in visit notes/problem list details OB Flowsheet Initial Weight: Not Recorded Date -?-?-?-?-?-?-?-?-?-?-?-?- EGA Weight BP Urine Prot -?-?-?-?-?-?-?-?-?-?-?-?- Glucose FHR FuHt Pres Dilation -?-?-?-?-?-?-?-?-?-?-?-?- Effaced St Visit Note 10/04/23 -?-?-?-?-?-?-?-?-?-?-?-?- 11w 4d 256 lb 6 oz 119/81 -?-?-?-?-?-?-?-?-?-?-?-?- 181 -?-?-?-?-?-?-?-?-?-?-?-?- JV_ CRL 46 mm an d consistent with LMP. She is a type 1 DM and having glucose levels as high as 300. fasting are around 140's. She is only on lantus 14 units. will increase lantus to 24 for now and patient will send me a log of fasting and 2 hr pp. consulting MFM. pt has yeast infection currently. recommend OTC cream. JV_ CRL 46 mm and consistent with LMP. She is a type 1 DM and having glucose levels as high as 300. fasting are around 140's. She is only on lantus 14 units. will increase lantus to 24 for now and patient will send me a log of fasting and 2 hr pp. consulting [facility]. pt has yeast infection currently. recommend OTC cream. desires NIPT and carrier screening. 11/03/23 -?-?-?-?-?-?-?-?-?-?-?-?- 15w 6d 261 lb 2 oz 120/81 Nega tive -?-?-?-?-?-?-?-?-?-?-?-?- Negative 160 -?-?-?-?-?-?-?-?-?-?-?-?- MH-No VB. Brief US to confirm FHT. Not checking glucose QID. Today FBS was 135, 2 hr pp was 218. Wrote out sheet for tracking readings and food. Ref to [facility]. Call 5 days with readings. 11/17/23 -?-?-?-?-?-?-?-?-?-?-?-?- 17w 6d 265 lb 8 oz 121/83 Nega tive -?-?-?-?-?-?-?-?-?-?-?-?- Negative 145 -?-?-?-?-?-?-?-?-?-?-?-?- JV- fasting leve ls are all over 130's- 160's. 2 hr pp are all elevated as high as 180. lantus 24 at bedtime, humalog is 15, 18, 15. increasing lantus to 30, novolog to 20,18,20. has anatomy scan scheduled for next week. will forward a note to [facility] as a heads up. 12/15/23 -?-?-?-?-?-?-?-?-?-?-?-?- 21w 6d 270 lb 109/72 Negative -?-?-?-?-?-?-?-?-?-?-?-?- Negative 155 -?-?-?-?-?-?-?-?-?-?-?-?- JV- seeing [facility] n ow for glucose management. They have her on 42 of lantus and of log. Fasting levels are getting better. last few days were 111, 110. 2 hr pp also improving . 01/19/24 -?-?-?-?-?-?-?-?-?-?-?-?- 26w 6d 266 lb 4 oz 132/84 Trac e -?-?-?-?-?-?-?-?-?-?-?-?- Negative 160 -?-?-?-?-?-?-?-?-?-?-?-?- KW- no vb/lof/ct x, good fm. change in insulin dose- Lantus 34/34 AM and PM. log . will get 28 wk labs at next appt. viral illness today. encouraged safe meds during , hydration and rest. 02/02/24 -?-?-?-?-?-?-?-?-?-?-?-?- 28w 6d 266 lb 8 oz 118/80 -?-?-?-?-?-?-?-?-?-?-?-?- 150 29 -?-?-?-?-?-?-?-?-?-?-?-?- JV- pt has bronc hitis. recommend using her inhaler q 4 hrs. She is on a steroid dose pack and an inhaled steroid. 28 week labs today. she is following with [place] [facility]. no changes in insulin. 02/16/24 -?-?-?-?-?-?-?-?-?-?-?-?- 30w 6d 276 lb 2 oz 118/82 Nega tive -?-?-?-?-?-?-?-?-?-?-?-?- Negative 145 31 -?-?-?-?-?-?-?-?-?-?-?-?- MH-No vB, LOF. S till with cough, congestion. Feels short of breath. Will go to [facility] today 02/28/24 -?-?-?-?-?-?-?-?-?-?-?-?- 32w 4d 282 lb 8 oz 130/83 Nega tive -?-?-?-?-?-?-?-?-?-?-?-?- Negative 140 -?-?-?-?-?-?-?-?-?-?-?-?- KW- work in for SM. no vb/lof/ctx. good fm. insulin is now 34/58. lantus is 48/36. had BPP today with MFM and sees them every wednesday. had 10/13 Bpp today. will need BPPs scheduled on . 03/15/24 -?-?-?-?-?-?-?-?-?-?-?-?- 34w 6d 297 lb 130/88 Negative -?-?-?-?-?-?-?-?-?-?-?-?- Negative 135 36 -?-?-?-?-?-?-?-?-?-?-?-?- SM- on lantus 42 /38. humalog is 36/40/62. NST FHR Rate Baby A Baseline: 140 Variability:: Moderate Accelerations:: 15 x 15 Decelerations:: None NST Reactive:: Yes FHR Category:: Category I Assessment & Plan (1) Headache: COMMENT: PEC labs negative. BP stable. PLAN: Patient presents for triage evaluation secondary to headaches improved with tylenol. stable bp. negative PEC labs. FHT: Moderate variability reactive no decelerations category I tracing [place]: Contractions Assessment and plan: Reactive NST, reassuring maternal and status patient discharged to home to follow-up in office. See problem list details for additional plan information. Charges/Coding Multi Select Codes Urinary/Genital Urinary/Genital CPT Codes: 97554-77 non-stress test Interp
== END 2024-03-19 16:35 | disposition home or self-care (01) ==
LOC: WPOUT 13:53 → WP 13:54
PROVIDERS: PCP Internal Medicine; Referring Provider Registered Nurse; Visit Provider Registered Nurse
DX: O99.891 Other specified diseases and conditions complicating pregnancy (principal); Z79.4 Long term (current) use of insulin; R51.9 Headache, unspecified; Z3A.35 35 weeks gestation of pregnancy; O99.613 Diseases of the digestive system complicating pregnancy, third trimester; K21.9 Gastro-esophageal reflux disease without esophagitis; O24.913 Unspecified diabetes mellitus in pregnancy, third trimester; O99.513 Diseases of the respiratory system complicating pregnancy, third trimester; J45.909 Unspecified asthma, uncomplicated; Z79.82 Long term (current) use of aspirin; Z79.51 Long term (current) use of inhaled steroids; Z79.899 Other long term (current) drug therapy; Z79.84 Long term (current) use of oral hypoglycemic drugs
CPT/HCPCS: 36415; 59025; 59050; 82565; 82570; 84156; 84450; 84460; 84550; 85027; 99221; G0378

== ENCOUNTER → 2024-03-24 | Outpatient (CLI) | payer MEDICAID, SELFPAY ==
--- NOTE | 2024-03-24 16:55 | US_ITS ---
STUDY: Ultrasound OB Biophysical Profile REASON FOR EXAM: Female, 24 years old well being TECHNIQUE: Transabdominal PRIOR ULTRASOUND: 03/17/2024. FINDINGS: There is a single intrauterine fetus. The fetus is in a cephalic presentation. There is demonstrated cardiac activity with a heart rate of 147 bpm. There is a normal amniotic fluid volume. The largest amniotic fluid pocket measures 5.7 cm. The amniotic fluid index (ROCÍO) is 16.6 cm. The placenta is anterior and not low-lying. There are Grade 2 placental changes. BIOPHYSICAL PROFILE (BPP): 10/13 -- Breathin/2. -- Movement: 2/2. -- Tone: 2/2. --ROCÍO: 2/2. US/Biophysical Prof W/O Non Stres IMPRESSION: Normal BPP. Electronically Signed: Everette Mccarty MD at 9:46 EST ,
== END | disposition home or self-care (01) ==
LOC: US 16:54
PROVIDERS: PCP Internal Medicine; Referring Provider Obstetrics & Gynecology; Visit Provider Obstetrics & Gynecology
DX: O24.011 Pre-existing type 1 diabetes mellitus, in pregnancy, first trimester (principal); Z3A.00 Weeks of gestation of pregnancy not specified
CPT/HCPCS: 76819

== ENCOUNTER 2024-03-27 16:55 | Inpatient (IN) | payer MEDICAID, SELFPAY ==
[2024-03-27] VITALS (33 sets, daily range): BP systolic 128–174; BP diastolic 66–111; PULSE 86–171; RESP 16; TEMP 36.6–37.3; O2SAT 81–100; BMI 48.2
[2024-03-27 15:23] LABS: Protein, Urine (Random) 16.7 mg/dL (<11.9); Protein:Creat Ratio 161 mg/g CRE (0-200)
[2024-03-27 15:40] LABS: Hematocrit 40.4 % (37-47); Hemoglobin 12.9 g/dL (12.0-15.0); Mean Corp Hgb Conc 31.9 g/dL (32-36); Mean Corpuscular Hgb 26.7 pg (27.0-32.0); Mean Corpuscular Volume 83.5 fL (81-99); Mean Platelet Vol. 11.8 fl (6.2-12.0); Platelet Count 273 K/mm3 (150-450); RBC Distribution Width CV 14.8 % (11.6-14.6); RBC Distribution Width SD 44.4 fl (35.1-43.9); Red Blood Count 4.84 M/mm3 (4.2-5.4)
[2024-03-27 15:59] LABS: AST(SGOT) 19 U/L (15-37); Alanine Aminotransfer ALT/SGPT 32 U/L (13-56); Creatinine, Serum 0.68 mg/dL (0.55-1.02); EST Glomerular Filtration Rate 111 mL/min (>60); Est Glom Filt Rate - Afr Amer 135 mL/min (>60); Estimated Creatinine Clearance 179.42 ml/min; Uric Acid 5.1 mg/dL (2.6-6.0)
[2024-03-27] MEDS: NIFEdipine 10 MG Capsule PO (17:10)
[2024-03-27] MEDS: Lactated Ringers 1,000 ML 50 ML IV (17:40)
[2024-03-27 18:06] LABS: Bedside Glucose 74 mg/dL (74-106)
[2024-03-27] MEDS: Insulin Lispro 100 UNIT/ML INSULN.PEN 70 UNIT SC (19:30)
[2024-03-27 19:38] LABS: Syphilis Antibodies Non-reactive
[2024-03-27 19:41] LABS: Group B Strep DNA By PCR Negative (Negative); Internal Control PASS; Probe Check PASS; Specimen Processing Control PASS
[2024-03-27] MEDS: Glycopyrrolate 1 MG TABLET PO (20:19)
[2024-03-27] MEDS: miSOPROStol 25 MCG TABLET PO (20:20)
[2024-03-27] MEDS: metFORMIN (XR) 500 MG Tablet PO (20:20)
[2024-03-27] MEDS: Famotidine 20 MG Tablet PO (21:51)
[2024-03-27] MEDS: Fluticasone 44 Mcg Inhaler 2 PUFF INHALATION (21:51)
[2024-03-27 22:10] LABS: Bedside Glucose 105 mg/dL (74-106)
--- NOTE | 2024-03-27 23:22 | HP.PCM.OB_ITS ---
HPI - General General Date of Admission: 03/27/24 Date of Service: 03/27/24 HPI Narrative ASHA MELGOZA, is a 24 F 36.4 weeks who presents to unit from [facility] appt for increased BP and severe headache. Pre E labs done and BPs reviewed by Dr Parmar. Decision made for induction of labor due to severe range BPs. Maternal Data Information PARAMJIT Calculator Estimated Delivery Date Method Current WG Current Estimate 04/20/24 LMP (Certain) 36w 4d Other Estimates 04/19/24 Ultrasound #1 36w 5d Final PARAMJIT: 04/20/24 Final PARAMJIT Source: US >20 weeks Gestational age: 36.4 [facility] Medical History (Updated 03/27/24 @ 23:26 by Amber Ram CNM) Seasonal allergies Wears glasses Depression Anxiety Dietary restriction Gastric reflux Non-smoker Shortness of breath on exertion Leg cramps Migraine Cholelithiasis Diabetes GERD (gastroesophageal reflux disease) CPAP (continuous positive airway pressure) dependence Sleep apnea Asthma Home Medications ?Medication ?Instructions ?Recorded ?Last Taken ?Type ondansetron 4 mg disintegrating 4 mg PO TID PRN nausea and 12/26/22 02/20/24 Rx tablet vomiting #21 tabs flash glucose sensor (FreeStyle 09/28/23 Unknown History Shobha 2 Sensor kit) PNV 153-FA 400 mcg-om3 35 mg-dha 1 tab PO DAILY 90 days #90 tabs 11/09/23 03/18/24 Rx 25 mg-epa 5 mg-fish oil chew tablet aspirin 81 mg tablet,delayed 81 mg PO DAILY 11/25/23 03/19/24 History release magnesium oxide 400 mg (241.3 mg 400 mg PO DAILY 11/25/23 03/19/24 History magnesium) tablet pen needle, diabetic 29 gauge x #100 ea 12/13/23 Unknown Rx 1/2 (Ultra-Thin II Insulin Pen [place]) albuterol sulfate 90 mcg/actuation 2 puff inhalation Q4H PRN wheezing 02/07/24 02/20/24 Rx aerosol inhaler #8.5 grams fluticasone propionate 44 2 puff inhalation BID #10.6 grams 02/08/24 03/19/24 Rx mcg/actuation HFA aerosol inhaler lansoprazole 30 mg capsule,delayed 30 mg PO DAILY 1 month #30 caps 02/23/24 Rx release metformin 500 mg tablet,extended 500 mg PO QHS 02/24/24 03/19/24 History release 24 hr glycopyrrolate 2 mg tablet 2 mg PO DAILY #30 tabs 03/02/24 03/19/24 Rx famotidine 20 mg tablet (Acid 20 mg PO BID 03/09/24 03/19/24 History Controller) insulin glargine 100 unit/mL 46 unit subcut .Q AM 03/16/24 03/19/24 History subcutaneous solution (Lantus U-100 Insulin) insulin glargine 100 unit/mL 46 unit subcut QPM 03/16/24 03/18/24 History subcutaneous solution (Lantus U-100 Insulin) insulin lispro 100 unit/mL 40 unit subcut BREAKFAST 03/16/24 03/19/24 History subcutaneous pen (Humalog KwikPen (U-100) Insulin) insulin lispro 100 unit/mL 44 unit subcut LUNCH 03/16/24 03/19/24 History subcutaneous pen (Humalog KwikPen (U-100) Insulin) insulin lispro 100 unit/mL 70 unit subcut DINNER 03/16/24 03/18/24 History subcutaneous pen (Humalog KwikPen (U-100) Insulin) Allergy/AdvReac Type Severity Reaction Status Date / Time cetirizine (From [facility]) Allergy Severe Angioedema Verified 03/27/24 14:26 prednisone Allergy Severe Swelling Verified 03/27/24 14:26 adhesive tape Allergy Intermediate Rash Verified 03/27/24 14:26 latex Allergy Intermediate Swelling Verified 03/27/24 14:26 Family History Mother Asthma Diabetes Hypertension High cholesterol Congestive heart failure Arthritis Anxiety and depression CVA (cerebral vascular accident) History of recurrent miscarriages Father Arthritis Surgical History History of esophagogastroduodenoscopy (EGD) No history of previous surgery Social History adopted: No household members: spouse current occupational status: employed current occupation: [employer] pets and animals: No history of recent travel: No sexually active: Yes Smoking Status: Never smoker Electronic Cigarette Use: not used alcohol intake: never substance use type: does not use well-balanced diet: about half the time caffeine: Yes (2) Type: coffee and tea eating out: 1-3 times/week during the past year weight has: increased > 10 lbs frequency: does not exercise asha/spiritism: Adventism seatbelt use: always do you feel safe at home: Yes additional social history: [place] History 1 Elective abortions Hx Para 0 Spontaneous abortions Hx # Term Pregnancies Ectopic pregnancies Hx # Pregnancies Multiple births # of living children Visit Details Expected Delivery Route/Plan Labor Preferences- CB/BF classes: enc labor support person: [place] labor intervention preferences: [] pain management options preferred: undecided cut cord/dad catch: no : no PP control planned: discussed discussed possible routes of delivery and associated risks: [] special requests: [] Plans Covid status: [] Flu vaccine: [] Tdap vaccine: declines Rhogam: given LARC form signed: yes movement and labor precautions reviewed. Problem list reviewed and updated with the most current plan of care details and appropriate orders placed. Relevant counseling for the gestational age provided. Continue routine care and follow up unless otherwise noted in visit notes/problem list details OB Flowsheet Initial Weight: Not Recorded Date -?-?-?-?-?-?-?-?-?-?-?-?- EGA Weight BP Urine Prot -?-?-?-?-?-?-?-?-?-?-?-?- Glucose FHR FuHt Pres Dilation -?-?-?-?-?-?-?-?-?-?-?-?- Effaced St Visit Note 10/04/23 -?-?-?-?-?-?-?-?--?-?-?-?- 11w 4d 256 lb 6 oz 119/81 -?-?-?-?-?-?-?-?-?-?-?-?- 181 -?-?-?-?-?-?-?-?-?-?-?-?- JV_ CRL 46 mm an d consistent with LMP. She is a type 1 DM and having glucose levels as high as 300. fasting are around 140's. She is only on lantus 14 units. will increase lantus to 24 for now and patient will send me a log of fasting and 2 hr pp. consulting [facility]. pt has yeast infection currently. recommend OTC cream. JV_ CRL 46 mm and consistent with LMP. She is a type 1 DM and having glucose levels as high as 300. fasting are around 140's. She is only on lantus 14 units. will increase lantus to 24 for now and patient will send me a log of fasting and 2 hr pp. consulting [facility]. pt has yeast infection currently. recommend OTC cream. desires NIPT and carrier screening. 11/03/23 -?-?-?-?-?-?-?-?-?-?-?-?- 15w 6d 261 lb 2 oz 120/81 Nega tive -?-?-?-?-?-?-?-?-?-?-?-?- Negative 160 -?-?-?-?-?-?-?-?-?-?-?-?- MH-No VB. Brief US to confirm FHT. Not checking glucose QID. Today FBS was 135, 2 hr pp was 218. Wrote out sheet for tracking readings and food. Ref to [facility]. Call 5 days with readings. 11/17/23 -?-?-?-?-?-?-?-?-?-?-?-?- 17w 6d 265 lb 8 oz 121/83 Nega tive -?-?-?-?-?-?-?-?-?-?-?-?- Negative 145 -?-?-?-?-?-?-?-?-?-?-?-?- JV- fasting leve ls are all over 130's- 160's. 2 hr pp are all elevated as high as 180. lantus 24 at bedtime, humalog is 15, 18, 15. increasing lantus to 30, novolog to 20,18,20. has anatomy scan scheduled for next week. will forward a note to [facility] as a heads up. 12/15/23 -?-?-?-?-?-?-?-?-?-?-?-?- 21w 6d 270 lb 109/72 Negative -?-?-?-?-?-?-?-?-?-?-?-?- Negative 155 -?-?-?-?-?-?-?-?-?-?-?-?- JV- seeing MFM n ow for glucose management. They have her on 42 of lantus and of log. Fasting levels are getting better. last few days were 111, 110. 2 hr pp also improving . 01/19/24 -?-?-?-?-?-?-?-?-?-?-?-?- 26w 6d 266 lb 4 oz 132/84 Trac e -?-?-?-?-?-?-?-?-?-?-?-?- Negative 160 -?-?-?-?-?-?-?-?-?-?-?-?- KW- no vb/lof/ct x, good fm. change in insulin dose- Lantus 34/34 AM and PM. log . will get 28 wk labs at next appt. viral illness today. encouraged safe meds during , hydration and rest. 02/02/24 -?-?-?-?-?-?-?-?-?-?-?-?- 28w 6d 266 lb 8 oz 118/80 -?-?-?-?-?-?-?-?-?-?-?-?- 150 29 -?-?-?-?-?-?-?-?-?-?-?-?- JV- pt has bronc hitis. recommend using her inhaler q 4 hrs. She is on a steroid dose pack and an inhaled steroid. 28 week labs today. she is following with [facility]. no changes in insulin. 02/16/24 -?-?-?-?-?-?-?-?-?-?-?-?- 30w 6d 276 lb 2 oz 118/82 Nega tive -?-?-?-?-?-?-?-?-?-?-?-?- Negative 145 31 -?-?-?-?-?-?-?-?-?-?-?-?- MH-No vB, LOF. S till with cough, congestion. Feels short of breath. Will go to [facility] today 02/28/24 -?-?-?-?-?-?-?-?-?-?-?-?- 32w 4d 282 lb 8 oz 130/83 Nega tive -?-?-?-?-?-?-?-?-?-?-?-?- Negative 140 -?-?-?-?-?-?-?-?-?-?-?-?- KW- work in for SM. no vb/lof/ctx. good fm. insulin is now . lantus is 48/36. had BPP today with MFM and sees them every wednesday. had 10/13 Bpp today. will need BPPs scheduled on . 03/15/24 -?-?-?-?-?-?-?-?-?-?-?-?- 34w 6d 297 lb 130/88 Negative -?-?-?-?-?-?-?-?-?-?-?-?- Negative 135 36 -?-?-?-?-?-?-?-?-?-?-?-?- SM- on lantus 42 /38. humalog is 36/40/62. NST FHR Rate Baby A Baseline: 140 Variability:: Moderate Accelerations:: 15 x 15 Decelerations:: None NST Reactive:: Yes FHR Category:: Category I Uterine Activity:: none ROS Constitutional Constitutional: Denies change in weight, fatigue, fever(s), headache(s), poor appetite or weakness Eyes Eyes: Denies blurry vision, change in vision, floaters, seeing flashes or spots in vision ENT HEENT: Denies dizziness, headache(s), loss taste/smell or sore throat Cardiovascular Cardiovascular: Denies chest pain, dizziness, dyspnea, irregular heart rhythm, lightheadedness, palpitations or rapid heart rate Respiratory/Chest Respiratory/Chest: Denies change in mental status, chest tightness, cough, dyspnea or breast pain Gastrointestinal Gastrointestinal: Denies anorexia, chewing difficulty, constipation, diarrhea or weight changes Genitourinary Genitourinary: Denies difficulty urinating, dysuria, flank pain, genital pain, urinary frequency or urinary urgency Musculoskeletal Musculoskeletal: Denies back pain, difficulty walking, extremity pain, joint pain, muscle cramps or muscle weakness Integumentary Integumentary: Denies lesions or unusual bruising Neurologic Neurologic: Denies abnormal movements, abnormal speech, dizziness, numbness, seizure-like activity, syncope or weakness Psychiatric Psychiatric: Denies behavioral changes, change in appetite, confusion, depression, homicidal ideation, suicidal ideation or suicidal thoughts Endocrine Endocrinology: Denies excessive sweating, polydipsia or polyuria Hematologic/Lymphatic Hematologic/Lymphatic: Denies anemia Allergic/Immunologic Allergic/Immunologic: Denies itchy eyes, lip swelling, throat swelling, tongue swelling or wheezing Vital Signs Vital Signs Vital Signs: 03/27/24 14:19 03/27/24 14:19 03/27/24 14:19 Temperature Temperature Source Pulse Rate 171 H 90 Respiratory Rate Blood Pressure BP Systolic BP Diastolic Pulse Ox 81 03/27/24 14:19 03/27/24 14:20 03/27/24 14:20 Temperature Temperature Source Pulse Rate 86 Respiratory Rate Blood Pressure 138/81 H BP Systolic 138 BP Diastolic 81 Pulse Ox 99 03/27/24 14:20 03/27/24 14:20 03/27/24 14:20 Temperature 97.9 F Temperature Source Temporal Pulse Rate Respiratory Rate 16 Blood Pressure BP Systolic BP Diastolic Pulse Ox 03/27/24 14:35 03/27/24 14:35 03/27/24 15:08 Temperature Temperature Source Pulse Rate 86 Respiratory Rate Blood Pressure 129/82 H 139/98 H BP Systolic 129 139 BP Diastolic 82 98 Pulse Ox 03/27/24 15:08 03/27/24 15:20 03/27/24 15:20 Temperature Temperature Source Pulse Rate 93 86 Respiratory Rate Blood Pressure 151/92 H BP Systolic 151 BP Diastolic 92 Pulse Ox 03/27/24 15:35 03/27/24 15:35 03/27/24 15:50 Temperature Temperature Source Pulse Rate 94 Respiratory Rate Blood Pressure 143/90 H 139/75 H BP Systolic 143 139 BP Diastolic 90 75 Pulse Ox 03/27/24 15:50 03/27/24 16:05 03/27/24 16:05 Temperature Temperature Source Pulse Rate 87 94 Respiratory Rate Blood Pressure 142/81 H BP Systolic 142 BP Diastolic 81 Pulse Ox 03/27/24 16:21 03/27/24 16:21 03/27/24 16:37 Temperature Temperature Source Pulse Rate 100 Respiratory Rate Blood Pressure 150/101 H 164/111 H BP Systolic 150 164 BP Diastolic 101 111 Pulse Ox 03/27/24 16:37 03/27/24 16:50 03/27/24 16:50 Temperature Temperature Source Pulse Rate 110 H 93 Respiratory Rate Blood Pressure 174/97 H BP Systolic 174 BP Diastolic 97 Pulse Ox 03/27/24 17:06 03/27/24 17:06 03/27/24 17:36 Temperature Temperature Source Pulse Rate 104 H Respiratory Rate Blood Pressure 169/74 H 129/66 H BP Systolic 169 129 BP Diastolic 74 66 Pulse Ox 03/27/24 17:36 03/27/24 17:40 03/27/24 17:40 Temperature Temperature Source Pulse Rate 129 H 127 H Respiratory Rate Blood Pressure BP Systolic BP Diastolic Pulse Ox 97 03/27/24 17:45 03/27/24 17:45 03/27/24 17:50 Temperature Temperature Source Pulse Rate 125 H Respiratory Rate Blood Pressure 134/82 H BP Systolic 134 BP Diastolic 82 Pulse Ox 98 03/27/24 17:50 03/27/24 17:50 03/27/24 17:55 Temperature Temperature Source Pulse Rate 115 H 107 H Respiratory Rate Blood Pressure BP Systolic BP Diastolic Pulse Ox 100 03/27/24 17:55 03/27/24 18:00 03/27/24 18:00 Temperature Temperature Source Pulse Rate 108 H Respiratory Rate Blood Pressure BP Systolic BP Diastolic Pulse Ox 98 99 03/27/24 18:05 03/27/24 18:05 03/27/24 18:05 Temperature Temperature Source Pulse Rate 104 H 102 H Respiratory Rate Blood Pressure 139/85 H BP Systolic 139 BP Diastolic 85 Pulse Ox 03/27/24 18:05 03/27/24 18:08 03/27/24 18:08 Temperature Temperature Source Pulse Rate 108 H Respiratory Rate Blood Pressure BP Systolic BP Diastolic Pulse Ox 99 88 03/27/24 18:10 03/27/24 18:10 03/27/24 18:15 Temperature Temperature Source Pulse Rate 109 H 109 H Respiratory Rate Blood Pressure BP Systolic BP Diastolic Pulse Ox 97 03/27/24 18:15 03/27/24 18:20 03/27/24 18:20 Temperature Temperature Source Pulse Rate 102 H Respiratory Rate Blood Pressure 131/76 H BP Systolic 131 BP Diastolic 76 Pulse Ox 99 03/27/24 18:43 03/27/24 18:43 03/27/24 19:17 Temperature Temperature Source Pulse Rate 96 Respiratory Rate Blood Pressure 137/88 H 158/93 H BP Systolic 137 158 BP Diastolic 88 93 Pulse Ox 03/27/24 19:17 03/27/24 19:32 03/27/24 19:32 Temperature Temperature Source Pulse Rate 98 106 H Respiratory Rate Blood Pressure 150/89 H BP Systolic 150 BP Diastolic 89 Pulse Ox 03/27/24 19:33 03/27/24 19:33 03/27/24 19:48 Temperature 99.2 F H Temperature Source Temporal Pulse Rate Respiratory Rate Blood Pressure 141/81 H BP Systolic 141 BP Diastolic 81 Pulse Ox 03/27/24 19:48 03/27/24 20:02 03/27/24 20:02 Temperature Temperature Source Pulse Rate 94 100 Respiratory Rate Blood Pressure 136/88 H BP Systolic 136 BP Diastolic 88 Pulse Ox 03/27/24 20:17 03/27/24 20:17 03/27/24 21:19 Temperature Temperature Source Pulse Rate 98 Respiratory Rate Blood Pressure 138/87 H 136/80 H BP Systolic 138 136 BP Diastolic 87 80 Pulse Ox 03/27/24 21:19 03/27/24 21:19 03/27/24 21:19 Temperature Temperature Source Temporal Pulse Rate 96 Respiratory Rate 16 Blood Pressure BP Systolic BP Diastolic Pulse Ox 03/27/24 21:19 03/27/24 22:19 03/27/24 22:19 Temperature 99.0 F Temperature Source Pulse Rate 93 Respiratory Rate Blood Pressure 128/80 H BP Systolic 128 BP Diastolic 80 Pulse Ox 03/27/24 23:19 03/27/24 23:19 Temperature Temperature Source Pulse Rate 90 Respiratory Rate Blood Pressure 140/70 H BP Systolic 140 BP Diastolic 70 Pulse Ox Weight Weight: 299 lb 3.2 oz Body Mass Index (BMI) 48.2 Physical Exam Const alert, oriented x3 and no apparent distress General Appearance: cooperative Orientation / Consciousness: awake HEENT normocephalic Neck full ROM Lymph Lymphatic: no lymphadenopathy noted Chest inspection of chest normal Resp normal respiratory effort and normal air movement Effort and Inspection: able to speak in complete sentences and symmetric chest movement GI soft to palpation and non-tender Inspection: gravid Palpation: soft; Negative for tender external exam normal Back/Spine normal to inspection Extremity normal to inspection and full ROM Skin no rashes or lesions noted Psych mental status grossly normal Appearance: grossly normal Speech: normal speech Labs Labs Labs: Blood Type A NEGATIVE Antibody Screen NEGATIVE Hct 40.4 % (37-47) Hgb 12.9 g/dL (12.0-15.0) Syphilis Total Ab Non-reactive Rubella IgG Antibody Reactive (Nonreactive) Hep Bs Antigen Non-Reactive (Nonreactive) Hepatitis C Antibody Non-Reactive (Nonreactive) Chlamydia DNA (ROXANA) Negative (Negative) N.gonorrhoeae DNA (ROXANA) Negative (Negative) HIV 1&2 Antibody Non-Reactive (Nonreactive) Group B Strep DNA Negative (Negative) Assessment & Plan (1) Encounter for induction of labor: PLAN: Patient presents IOL, plan management for with cytotec/ayala bulb/pitocin/AROM. Pain management: plans epidural. GBS negative. Management of any complications: see problem list I have reviewed the [facility] and made any clinically relevant updates. Dr Parmar aware of assessment, plan and admission. agrees with above (2) Headache: COMMENT: PEC labs negative. BP stable. (3) Trauma during : (4) Depression: COMMENT: counseling recommend, consider medication . (5) Rh negative status during : QUALIFIERS: Trimester: third trimester Qualified Code(s): O26.893 - Other specified related conditions, third trimester; Z67.91 - Unspecified blood type, Rh negative COMMENT: RHogam PRN and at 28 weeks (6) UTI (urinary tract infection): COMMENT: follow culture, start macrobid rx consider continued treatment in (7) Two vessel umbilical cord in [place] , antepartum: (8) Type 1 diabetes mellitus affecting in first trimester, antepartum: COMMENT: a1c is 6.8; not testing QID or tracking. Slight DD patient:ref to [facility] for management: sees them weekly. (9) Morbid obesity with BMI of 40.0-44.9, adult: (10) Hx of recurrent urinary tract infection: COMMENT: follow cx adjust antibiotic based on culture sensitivity if needed (11) Maternal varicella, non-immune: (12) Supervision of high-risk : QUALIFIERS: Trimester: third trimester Qualified Code(s): O09.93 - Supervision of high risk , unspecified, third trimester COMMENT: PRR, , PARAMJIT 04/20/24, girl Cr [place] (13) : QUALIFIERS: Weeks of gestation: 34 weeks Qualified Code(s): Z3A.34 - 34 weeks gestation of COMMENT: anatomy nl, declines genetic & carrier testing (14) Bloating symptom: COMMENT: H. pylori negative per stool studies (15) Cholecystectomy planned: COMMENT: Planning for rescheduled patient's laparoscopic cholecystectomy, however, I remain concerned about patient's lack of a reliable CPAP after general anesthesia?especially in light of her respiratory difficulties while tr tang to undergo a simple EGD last month. I have advised Asha continue with a low-fat/bland diet and notify us once her CPAP is arrive so that we can schedule her cholecystectomy. Update 08/16/2023: I discussed with patient that we will place an indefinite hold on her surgical plans given her most recent news about probable . I did discuss with both her and her that laparoscopy is deemed to be safe at any trimester of , however, I specifically cautioned about proceeding during the first trimester given to her allergenicity concerns. I stated, optimally?speaking, we would be able to wait for the and delivery before we think about rescheduling. (16) Obstructive sleep apnea: (17) Abnormal biliary HIDA scan: COMMENT: Ejection fraction of 18% is certainly abnormal and consistent with a diagnosis of biliary dyskinesia, however, patient denies any pain with CCK administration. (18) Nausea & vomiting: COMMENT: Nausea symptoms are worse. Stable. Previously negative workup for H. pylori. Now must consider possibility of ?related nausea. (19) Abdominal pain: COMMENT: Patient describes more left upper quadrant tenderness than right upper quadrant tenderness. I find this shift to be favorable?especially in light of patient's shared news about a . I would wonder whether or not this is more related to some ongoing constipation concerns. I have encouraged patient to try to remain regular with her bowel habits. Does seem to be less likely related to her gallbladder given the shift and laterality. As stated above H. pylori testing was negative. (20) GERD (gastroesophageal reflux disease): QUALIFIERS: Esophagitis presence: without esophagitis Qualified Code(s): K21.9 - Gastro-esophageal reflux disease without esophagitis COMMENT: Patient reports stable symptoms of reflux despite doubling PPI. Patient requests transition to lansoprazole. After confirming safety in this request was for failed (21) Cholelithiasis: QUALIFIERS: Cholelithiasis location: gallbladder Cholecystitis presence: without cholecystitis Biliary obstruction: without biliary obstruction Qualified Code(s): K80.20 - Calculus of gallbladder without cholecystitis without obstruction Charges/Coding Multi Select Codes Urinary/Genital Urinary/Genital CPT Codes: No Charge
[2024-03-28] VITALS (58 sets, daily range): BP systolic 125–171; BP diastolic 62–101; PULSE 81–137; RESP 16–22; TEMP 36.2–37.9; O2SAT 96–100
[2024-03-28 00:27] LABS: Bedside Glucose 53 mg/dL (74-106)
[2024-03-28 00:50] LABS: Bedside Glucose 51 mg/dL (74-106)
[2024-03-28] MEDS: miSOPROStol 25 MCG TABLET PO ×2 (00:55→05:00)
[2024-03-28 01:14] LABS: Bedside Glucose 72 mg/dL (74-106)
[2024-03-28 02:49] LABS: Bedside Glucose 61 mg/dL (74-106)
[2024-03-28] MEDS: Acetaminophen 500 MG Tablet PO ×3 (03:02→16:57)
[2024-03-28 04:50] LABS: Bedside Glucose 57 mg/dL (74-106)
[2024-03-28 05:14] LABS: Bedside Glucose 73 mg/dL (74-106)
[2024-03-28 07:15] LABS: Bedside Glucose 72 mg/dL (74-106)
[2024-03-28] MEDS: 0.9% Normal Saline Single 100 ML IV.SOLN. INTRA-UTER (07:45)
[2024-03-28] MEDS: Oxytocin 15 Units/NS 250ml 15 UNITS/250 ML IV.SOLN 2 UNITS IV (09:00)
[2024-03-28] MEDS: 0.9% Saline Lock 10 ML Syringe IV ×2 (09:01→09:02)
[2024-03-28 09:34] LABS: Bedside Glucose 120 mg/dL (74-106)
--- NOTE | 2024-03-28 09:49 | PN_ITS ---
Progress Note Patient is laying in bed comfortably. She consents to a ayala balloon placement. current tracing: FHT: 120 Moderate variability reactive no decelerations category I tracing [place]: no Contractions picking up. cx: / ayala bulb placed without difficulty reviewed tracing abnormalities since last note: no changes A/P: type 1 dm gestational hypertension with headache- headache persists mildly ayala bulb in and inflated with 50cc ns start pitocin at 9
[2024-03-28] MEDS: Fluticasone 44 Mcg Inhaler 2 PUFF INHALATION ×2 (10:09→22:50)
[2024-03-28] MEDS: Lansoprazole 15 MG Capsule.DR 30 MG PO (10:09)
[2024-03-28] MEDS: Famotidine 20 MG Tablet PO ×2 (10:09→23:02)
[2024-03-28 10:32] LABS: Bedside Glucose 129 mg/dL (74-106)
[2024-03-28] MEDS: Lactated Ringers 1,000 ML 999 ML IV (11:07)
[2024-03-28] MEDS: Nalbuphine 10 MG/ML Ampul IV (12:18)
[2024-03-28] MEDS: fentaNYL-bupivacaine (epidural) 100 ML BAG EPIDURAL ×3 (12:44→19:45)
[2024-03-28 13:34] LABS: Bedside Glucose 104 mg/dL (74-106)
[2024-03-28 13:34] LABS: Bedside Glucose 96 mg/dL (74-106)
--- NOTE | 2024-03-28 14:10 | PCM.PN.OB ---
Subjective Subjective patient is comfortable with epidural. She consents to rupture of membranes now that the ayala is out. 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 IUPC and FSE placed A/P: type 1 dm and gestational hypertension continue insulin drip continue pitocin. Objective Data Objective Data Vital Signs: Vital Signs Temp Pulse Resp BP Pulse Ox 100.2 F H 129 H 18 131/72 H 99 03/28/24 18:58 03/28/24 18:59 03/28/24 18:58 03/28/24 18:59 03/28/24 18:58 Weight: 299 lb 3.2 oz Body Mass Index (BMI) 48.2 Intake & Output: Intake and Output for Last 24 Hours 03/26/24 03/27/24 03/28/24 23:59 23:59 23:59 Intake Total 91.67 / 91.67 2607.83 / 2607.83 Output Total 700 / 700 Balance 91.67 / 91.67 1907.83 / 1907.83 Lab / Micro Data 03/27/24 15:15 03/27/24 15:15 Labs: Laboratory Results - last 24 hr 03/27/24 17:50: Group B Strep DNA Negative, Specimen Comment Not Reportable 03/27/24 18:00: Syphilis Total Ab Non-reactive 03/27/24 21:49: POC Glucose 105 03/28/24 00:08: POC Glucose 53 L 03/28/24 00:27: POC Glucose 51 L 03/28/24 00:51: POC Glucose 72 L 03/28/24 02:21: POC Glucose 61 L 03/28/24 04:31: POC Glucose 57 L 03/28/24 04:52: POC Glucose 73 L 03/28/24 06:56: POC Glucose 72 L 03/28/24 09:09: POC Glucose 120 H 03/28/24 10:15: POC Glucose 129 H 03/28/24 11:23: POC Glucose 104 03/28/24 13:10: POC Glucose 96 03/28/24 14:49: POC Glucose 108 H 03/28/24 15:48: POC Glucose 94 03/28/24 16:36: POC Glucose 89 03/28/24 17:39: POC Glucose 63 L 03/28/24 18:06: POC Glucose 75
[2024-03-28 15:08] LABS: Bedside Glucose 108 mg/dL (74-106)
[2024-03-28 16:23] LABS: Bedside Glucose 94 mg/dL (74-106)
[2024-03-28] MEDS: Lactated Ringers 1,000 ML 200 ML IV (16:31)
[2024-03-28 16:59] LABS: Bedside Glucose 89 mg/dL (74-106)
--- NOTE | 2024-03-28 17:45 | PN.OBGYN_ITS ---
Subjective Subjective patient is still comfortable with epidural. SHe is surrounded by family and appears well. She consents to a vaginal exam to document labor progress current tracing: FHT: Moderate variability reactive no decelerations category I tracing [place]: q1-2 minute Contractions cx: 5/70/-1 A/P: minmal change since 2 pm. (4 hours) MVU's adequate. re-check cerix in 2 hours. Objective Data Objective Data Vital Signs: Vital Signs Temp Pulse Resp BP Pulse Ox 100.2 F H 129 H 18 131/72 H 99 03/28/24 18:58 03/28/24 18:59 03/28/24 18:58 03/28/24 18:59 03/28/24 18:58 Weight: 299 lb 3.2 oz Body Mass Index (BMI) 48.2 Intake & Output: Intake and Output for Last 24 Hours 03/26/24 03/27/24 03/28/24 23:59 23:59 23:59 Intake Total 91.67 / 91.67 2607.83 / 2607.83 Output Total 700 / 700 Balance 91.67 / 91.67 1907.83 / 1907.83 Lab / Micro Data 03/27/24 15:15 03/27/24 15:15 Labs: Laboratory Results - last 24 hr 03/27/24 17:50: Group B Strep DNA Negative, Specimen Comment Not Reportable 03/27/24 18:00: Syphilis Total Ab Non-reactive 03/27/24 21:49: POC Glucose 105 03/28/24 00:08: POC Glucose 53 L 03/28/24 00:27: POC Glucose 51 L 03/28/24 00:51: POC Glucose 72 L 03/28/24 02:21: POC Glucose 61 L 03/28/24 04:31: POC Glucose 57 L 03/28/24 04:52: POC Glucose 73 L 03/28/24 06:56: POC Glucose 72 L 03/28/24 09:09: POC Glucose 120 H 03/28/24 10:15: POC Glucose 129 H 03/28/24 11:23: POC Glucose 104 03/28/24 13:10: POC Glucose 96 03/28/24 14:49: POC Glucose 108 H 03/28/24 15:48: POC Glucose 94 03/28/24 16:36: POC Glucose 89 03/28/24 17:39: POC Glucose 63 L 03/28/24 18:06: POC Glucose 75
[2024-03-28 18:06] LABS: Bedside Glucose 63 mg/dL (74-106)
[2024-03-28 18:24] LABS: Bedside Glucose 75 mg/dL (74-106)
[2024-03-28 20:44] LABS: Bedside Glucose 71 mg/dL (74-106)
[2024-03-28 20:44] LABS: Bedside Glucose 73 mg/dL (74-106)
[2024-03-28] MEDS: Oxytocin 15 Units/NS 250ml 15 UNITS/250 ML IV.SOLN 83 UNITS IV (22:19)
--- NOTE | 2024-03-28 22:40 | OB.VAGDELI_ITS ---
Assessment & Plan (1) Headache: COMMENT: PEC labs negative. BP stable. (2) Depression: COMMENT: counseling recommend, consider medication . (3) Rh negative status during : QUALIFIERS: Trimester: third trimester Qualified Code(s): O26.893 - Other specified related conditions, third trimester; Z67.91 - Unspecified blood type, Rh negative COMMENT: RHogam PRN and at 28 weeks (4) Two vessel umbilical cord in [place] , antepartum: (5) Type 1 diabetes mellitus affecting in first trimester, antepartum: COMMENT: a1c is 6.8; not testing QID or tracking. Slight DD patient:ref to [facility] for management: sees them weekly. (6) Morbid obesity with BMI of 40.0-44.9, adult: (7) Hx of recurrent urinary tract infection: COMMENT: follow cx adjust antibiotic based on culture sensitivity if needed (8) Maternal varicella, non-immune: (9) Supervision of high-risk : QUALIFIERS: Trimester: third trimester Qualified Code(s): O09.93 - Supervision of high risk , unspecified, third trimester COMMENT: PRR, , PARAMJIT 04/20/24, girl Cr Tyree (10) : QUALIFIERS: Weeks of gestation: 34 weeks Qualified Code(s): Z3A.34 - 34 weeks gestation of COMMENT: anatomy nl, declines genetic & carrier testing (11) Nausea & vomiting: COMMENT: Nausea symptoms are worse. Stable. Previously negative workup for H. pylori. Now must consider possibility of ?related nausea. (12) GERD (gastroesophageal reflux disease): QUALIFIERS: Esophagitis presence: without esophagitis Qualified Code(s): K21.9 - Gastro-esophageal reflux disease without esophagitis COMMENT: Patient reports stable symptoms of reflux despite doubling PPI. Patient requests transition to lansoprazole. After confirming safety in this request was for failed (13) Cholelithiasis: QUALIFIERS: Cholelithiasis location: gallbladder Cholecystitis presence: without cholecystitis Biliary obstruction: without biliary obstruction Qualified Code(s): K80.20 - Calculus of gallbladder without cholecystitis without obstruction Maternal Data Information PARAMJIT Calculator Estimated Delivery Date Method Current WG Current Estimate 04/20/24 LMP (Certain) 36w 5d Other Estimates 04/19/24 Ultrasound #1 36w 6d Gestational age: 36 weeks 5 days Vaginal Delivery Maternal Presentation Maternal Presentation: Medically Indicated Induction Type of Induction: Pitocin, Vences Bulb, Amniotomy and Cytotec Medical Reason for Induction: Gestational Hypertension Vaginal Delivery Information Procedure Performed: Vacuum Assisted Vaginal Delivery Station at time of placement: +3 Number of vacuum pulls: 3 Number of vacuum pop offs: 2 Surgeon/Practitioner: Shelbi Dewitt Date of Procedure: 03/28/24 Pre-Procedure Diagnosis: 24 y/o @ 36 weeks 5 days, type 1 DM, gestational hypertension with severe features Post-Procedure Diagnosis: 24 y/o @ 36 weeks 5 days, type 1 DM, gestational hypertension with severe features Type of anesthesia: Epidural Estimated Blood Loss: 200cc Time of Delivery: 21:45 Findings Description of procedure: This is a 24year old G1 P 2 woman who was admitted to labor and delivery for gestational hypertension with severe features of headache and severe level blood pressures. The decision was made to perform a vacuum extraction due to poor maternal effort with pushing. The risk benefits and alternatives of the procedure were discussed with the patient and verbal consent was obtained. The was noted to be at a +2 station, the cervix was completely dilated. The 's head was noted to be in the right occiput anterior presentation. The vacuum was placed in the correct placement in front of the posterior fontanelle. This was confirmed digitally. With the patient's next contraction, the vacuum was inflated and a gentle downward pressure was used to assist with bringing the baby's head to a +3 station. There were 3 pulls and 2 pop offs. The patient was then able to push the remainder of the head atraumatically. No nuchal cord was noted. The anterior shoulder followed by the posterior shoulder were delivered without difficulty. The infant was handed off to the patient's chest. The was found to be vigorous and crying and moving of all 4 extremities. The mouth and nares were bulb suctioned. After 60 second delay the cord was clamped and cut and the infant was handed off to the awaiting nurses for routine assessment. The placenta was delivered with gentle traction and uterine massage. Inspection of the vagina cervix and perineum was performed. There were no lacerations to the vagina or to the cervix. The peritoneum was found to have a first-degree perineal laceration. The perineal laceration was closed using a 2-0 Vicryl in the usual sterile fashion. The patient tolerated the procedure well sponge lap and needle counts were correct x2 and she is now recovering in stable condition. Presentation: Vertex Amniotic Membrane Rupture Type: Artificial Amniotic Fluid Description: Clear Placental Delivery Description: Spontaneous Placenta Disposition: [facility] Specimen collected: No Cord Vessel Description: 2 Vessels Cord Entanglement: None A Gender: Male (1 minute): 8 (5 minute): 9 Delayed Cord Clamping: Yes Veneer Glue Jointer Feedback butcherette: No Post Vaginal Deli Medications given after delivery: IV Pitocin and IM Pitocin Episiotomy Description: None Laceration: 1st degree Complication Complications: No Multi Select Codes Urinary/Genital Urinary/Genital CPT Codes: 91594 delivery+ Care([facility])
--- NOTE | 2024-03-28 22:46 | PCM.DC ---
Discharge Instructions Diet Discharge Diet: No restrictions DC O2, CPAP, BIPAP needs Home O2 Discharge instructions: No Dressing / Incision Discharge Activity: Return to Normal Activity, May Not Drive (while taking narcotic pain medications.) and May Shower May resume sexual activity in: 4-6 weeks Dressing / Incision Call your doctor if your incision/area has: Continuous Slow Oozing, Sudden Increased Bleeding, Increased Pain/ Swelling, Increased Redness and Foul Smelling Discharge Follow Up Care Please Follow Up With: Shelbi Dewitt DO When: Call [phone] to make an appointment with your doctor in 6 weeks. If you had elevated blood pressure or 4th degree laceration, you will need to be seen in 2 weeks. Test Results: Test results from this visit will be discussed in further detail at your follow-up appointment, if applicable. Discharge Plan Admission Admit Date/Time: 03/27/24 16:55 Attending Provider: Shelbi Dewitt Primary Care Provider: Hilary Marie Discharge Orders/Prescriptions Prescriptions: No Action (DME) FreeStyle Shobha 2 Sensor Kit See Rx Instructions .Route Rx Instructions: As directed ondansetron 4 mg tablet,disintegrating 4 mg PO TID PRN (Reason: nausea and vomiting) Qty: 21 1RF aspirin 81 mg tablet,delayed release (DR/EC) 81 mg PO DAILY magnesium oxide 400 mg (241.3 mg magnesium) tablet 400 mg PO DAILY metformin 500 mg tablet extended release 24 hr 500 mg PO QHS famotidine [Acid Controller] 20 mg tablet 20 mg PO BID insulin glargine [Lantus U-100 Insulin] 100 unit/mL solution 46 unit subcut .Q AM insulin glargine [Lantus U-100 Insulin] 100 unit/mL solution 46 unit subcut QPM insulin lispro [Humalog KwikPen Insulin] 100 unit/mL insulin pen 40 unit subcut BREAKFAST insulin lispro [Humalog KwikPen Insulin] 100 unit/mL insulin pen 44 unit subcut LUNCH insulin lispro [Humalog KwikPen Insulin] 100 unit/mL insulin pen 70 unit subcut DINNER PNV [id number] 400 mcg-35 mg- 25 mg-5 mg tablet,chewable 1 tab PO DAILY 90 Days Qty: 90 4RF (DME) pen needle, diabetic [Ultra-Thin II Ins Pen [place]] 29 gauge x 1/2 needle See Rx Instructions .Route Qty: 100 1RF Rx Instructions: As directed for DMII (E11.9); Z34.90 albuterol sulfate 90 mcg/actuation HFA aerosol inhaler 2 puff INHALATION Q4H PRN (Reason: wheezing) Qty: 8.5 3RF fluticasone propionate 44 mcg/actuation HFA aerosol inhaler 2 puff inhalation BID Qty: 10.6 4RF Rx Instructions: administer with spacer lansoprazole 30 mg capsule,delayed release(DR/EC) 30 mg PO DAILY 30 Days Qty: 30 5RF Rx Instructions: Take one tablet by mouth daily glycopyrrolate 2 mg tablet 2 mg PO DAILY Qty: 30 2RF Referrals / Follow Up: Hilary Marie MD [Primary Care Provider] -
[2024-03-28] MEDS: NIFEdipine 10 MG Capsule PO (23:07)
[2024-03-28] MEDS: Acetaminophen 500 MG Tablet 1000 MG PO (23:07)
[2024-03-28 23:52] LABS: Bedside Glucose 131 mg/dL (74-106)
[2024-03-28 23:52] LABS: Bedside Glucose 98 mg/dL (74-106)
[2024-03-29] VITALS (24 sets, daily range): BP systolic 113–163; BP diastolic 73–97; PULSE 102–121; RESP 16–18; TEMP 36.3–36.9; O2SAT 97–99
[2024-03-29] MEDS: hydrALAZINE 20 MG/ML Vial 5 MG IV
[2024-03-29] MEDS: NIFEdipine 30 MG Tablet PO (00:03)
[2024-03-29] MEDS: metFORMIN (XR) 500 MG Tablet PO ×2 (00:05→22:17)
[2024-03-29 00:35] LABS: Hematocrit 39.7 % (37-47); Hemoglobin 12.9 g/dL (12.0-15.0); Mean Corp Hgb Conc 32.5 g/dL (32-36); Mean Corpuscular Hgb 26.8 pg (27.0-32.0); Mean Corpuscular Volume 82.5 fL (81-99); Mean Platelet Vol. 11.5 fl (6.2-12.0); Platelet Count 248 K/mm3 (150-450); RBC Distribution Width CV 14.9 % (11.6-14.6); Red Blood Count 4.81 M/mm3 (4.2-5.4); White Blood Count 22.8 K/mm3 (4.4-11.0)
[2024-03-29 00:39] LABS: Prothrombin Time (Protime)PT. 13.2 SECONDS (11.7-14.9)
[2024-03-29 00:40] LABS: Partial Thromboplast Time 25.1 Seconds (24.1-36.2)
[2024-03-29 00:41] LABS: AST(SGOT) 23 U/L (15-37); Alanine Aminotransfer ALT/SGPT 24 U/L (13-56); Creatinine, Serum 0.69 mg/dL (0.55-1.02); EST Glomerular Filtration Rate 110 mL/min (>60); Est Glom Filt Rate - Afr Amer 133 mL/min (>60); Estimated Creatinine Clearance 176.82 ml/min; Uric Acid 5.7 mg/dL (2.6-6.0)
[2024-03-29 00:42] LABS: LDH 447 U/L (84-246)
[2024-03-29 02:33] LABS: Protein, Urine (Random) 642.6 mg/dL (<11.9); Protein:Creat Ratio 6432 mg/g CRE (0-200)
--- NOTE | 2024-03-29 05:33 | NURSING ---
report given to [facility] . that rn to assume care of couplet at this time.
[2024-03-29 06:08] LABS: Bedside Glucose 128 mg/dL (74-106)
--- NOTE | 2024-03-29 08:26 | PN.OBGYN_ITS ---
Subjective Subjective Patient doing well without complaints. Tolerating PO. Ambulating and voiding without difficulty. Feeding well. Denies chest pain, shortness of breath, calf pain/swelling, fevers, chills, lightheadedness. Objective Data Objective Data Vital Signs: Vital Signs Temp Pulse Resp BP Pulse Ox O2 Del Method 98.4 F 110 H 18 129/91 H 98 Room Air 03/29/24 08:04 03/29/24 08:04 03/29/24 08:04 03/29/24 08:04 03/29/24 08:04 03/29/24 08:04 Oxygen Delivery Method Room Air Weight: 299 lb 3.2 oz Body Mass Index (BMI) 48.2 Intake & Output: Intake and Output for Last 24 Hours 03/27/24 03/28/24 03/29/24 23:59 23:59 23:59 Intake Total 91.67 / 91.67 3811.57 / 3811.57 250 / 250 Output Total 1974 500 / 500 Balance 91.67 / 91.67 1836.57 / 1836.57 -250 / -250 Lab / Micro Data 03/29/24 00:20 03/29/24 00:20 Labs: Laboratory Results - last 24 hr 03/28/24 01:45: U Random Total Protein 642.6 H, Urine Creatinine 99.90, P rotein/Creatinin Ratio 6432 H 03/28/24 09:09: POC Glucose 120 H 03/28/24 10:15: POC Glucose 129 H 03/28/24 11:23: POC Glucose 104 03/28/24 13:10: POC Glucose 96 03/28/24 14:49: POC Glucose 108 H 03/28/24 15:48: POC Glucose 94 03/28/24 16:36: POC Glucose 89 03/28/24 17:39: POC Glucose 63 L 03/28/24 18:06: POC Glucose 75 03/28/24 18:57: POC Glucose 71 L 03/28/24 20:01: POC Glucose 73 L 03/28/24 20:58: POC Glucose 98 03/28/24 23:12: POC Glucose 131 H 03/29/24 00:20: WBC 22.8 H, RBC 4.81, Hgb 12.9, Hct 39.7, MCV 82.5, MCH 26.8 L, MCHC 32.5, RDW Std Deviation 45.0 H, RDW Coeff of Elmo 14.9 H, Plt Count 248, MPV 11.5, PT 13.2, INR 1.0, APTT 25.1, Creatinine 0.69, Estim Creat Clear Calc 176.82, Est GFR (MDRD) Af Amer 133, Est GFR (MDRD) Non-Af 110, Uric Acid 5.7, AST 23, ALT 24, Lactate Dehydrogenase 447 H 03/29/24 05:26: POC Glucose 128 H ROS Constitutional Constitutional: Reports systems reviewed and no addt'l complaints, except as documented; Denies anorexia or headache(s) Cardiovascular Cardiovascular: Reports systems reviewed and no addt'l complaints, except as documented; Denies dizziness, dyspnea, nausea or tachypnea Respiratory/Chest Respiratory/Chest: Reports systems reviewed and no addt'l complaints, except as documented; Denies cough, dyspnea, shortness of breath at rest or tachypnea Gastrointestinal Gastrointestinal: Reports systems reviewed and no addt'l complaints, except as documented; Denies abdominal pain, constipation or nausea Genitourinary Genitourinary: Reports systems reviewed and no addt'l complaints, except as documented; Denies burning urination, difficulty urinating, dysuria, urinary frequency or urinary incontinence Musculoskeletal Musculoskeletal: Reports systems reviewed and no addt'l complaints, except as documented Integumentary Integumentary: Reports systems reviewed and no addt'l complaints, except as documented Neurologic Neurologic: Reports systems reviewed and no addt'l complaints, except as documented; Denies abnormal speech, dizziness or headache(s) Psychiatric Psychiatric: Reports systems reviewed and no addt'l complaints, except as documented Endocrine Endocrinology: Reports systems reviewed and no addt'l complaints, except as documented Hematologic/Lymphatic Hematologic/Lymphatic: Reports systems reviewed and no addt'l complaints, except as documented Physical Exam Const alert, oriented x3 and no apparent distress Neck full ROM Resp normal respiratory effort, normal air movement and no retractions Effort and Inspection: able to speak in complete sentences and symmetric chest movement GI soft to palpation Bladder / Kidney Exam: bladder normal to palpation Uterus Palpation: uterus fundus firm Extremity normal to inspection and full ROM Psych mental status grossly normal, thought process normal and cooperative Assessment & Plan (1) Vaginal delivery: PLAN: s/p PPD # 1 1. routine post delivery care 2. breast feeding- support given 3. rh positive 4. rubella immune (2) Encounter for induction of labor: (3) Headache: COMMENT: PEC labs negative. BP stable. (4) Trauma during : (5) Depression: COMMENT: counseling recommend, consider medication . (6) Rh negative status during : QUALIFIERS: Trimester: third trimester Qualified Code(s): O26.893 - Other specified related conditions, third trimester; Z67.91 - Unspecified blood type, Rh negative COMMENT: RHogam PRN and at 28 weeks (7) UTI (urinary tract infection): COMMENT: follow culture, start macrobid rx consider continued treatment in (8) Two vessel umbilical cord in [place] , antepartum: (9) Type 1 diabetes mellitus affecting in first trimester, antepartum: COMMENT: a1c is 6.8; not testing QID or tracking. Slight DD patient:ref to [facility] for management: sees them weekly. (10) Morbid obesity with BMI of 40.0-44.9, adult: (11) Hx of recurrent urinary tract infection: COMMENT: follow cx adjust antibiotic based on culture sensitivity if needed (12) Maternal varicella, non-immune: (13) Supervision of high-risk : QUALIFIERS: Trimester: third trimester Qualified Code(s): O09.93 - Supervision of high risk , unspecified, third trimester COMMENT: PRR, , PARAMJIT 04/20/24, girl Cr [place] (14) : QUALIFIERS: Weeks of gestation: 34 weeks Qualified Code(s): Z 3A.34 - 34 weeks gestation of COMMENT: anatomy nl, declines genetic & carrier testing (15) Bloating symptom: COMMENT: H. pylori negative per stool studies (16) Cholecystectomy planned: COMMENT: Planning for rescheduled patient's laparoscopic cholecystectomy, however, I remain concerned about patient's lack of a reliable CPAP after general anesthesia?especially in light of her respiratory difficulties while trying to undergo a simple EGD last month. I have advised Asha continue with a low-fat/bland diet and notify us once her CPAP is arrive so that we can schedule her cholecystectomy. Update 08/16/2023: I discussed with patient that we will place an indefinite hold on her surgical plans given her most recent news about probable . I did discuss with both her and her that laparoscopy is deemed to be safe at any trimester of , however, I specifically cautioned about proceeding during the first trimester given to her allergenicity concerns. I stated, optimally?speaking, we would be able to wait for the and delivery before we think about rescheduling. (17) Obstructive sleep apnea: (18) Abnormal biliary HIDA scan: COMMENT: Ejection fraction of 18% is certainly abnormal and consistent with a diagnosis of biliary dyskinesia, however, patient denies any pain with CCK administration. (19) Nausea & vomiting: COMMENT: Nausea symptoms are worse. Stable. Previously negative workup for H. pylori. Now must consider possibility of ?related nausea. (20) Abdominal pain: COMMENT: Patient describes more left upper quadrant tenderness than right upper quadrant tenderness. I find this shift to be favorable?especially in light of patient's shared news about a . I would wonder whether or not this is more related to some ongoing constipation concerns. I have encouraged patient to try to remain regular with her bowel habits. Does seem to be less likely related to her gallbladder given the shift and laterality. As stated above H. pylori testing was negative. (21) GERD (gastroesophageal reflux disease): QUALIFIERS: Esophagitis presence: without esophagitis Qualified Code(s): K21.9 - Gastro-esophageal reflux disease without esophagitis COMMENT: Patient reports stable symptoms of reflux despite doubling PPI. Patient requests transition to lansoprazole. After confirming safety in this request was for failed (22) Cholelithiasis: QUALIFIERS: Cholelithiasis location: gallbladder Cholecystitis presence: without cholecystitis Biliary obstruction: without biliary obstruction Qualified Code(s): K80.20 - Calculus of gallbladder without cholecystitis without obstruction Charges/Coding Multi Select Codes Urinary/Genital Urinary/Genital CPT Codes: No Charge
[2024-03-29] MEDS: Insulin Lispro 100 UNIT/ML INSULN.PEN 20 UNIT SC (08:36)
[2024-03-29] MEDS: 0.9% Saline Lock 10 ML Syringe IV ×3 (10:50→21:17)
[2024-03-29] MEDS: Insulin Glargine-YFGN 100 UNIT/ML Pen 23 UNIT SC (10:51)
[2024-03-29] MEDS: Famotidine 20 MG Tablet PO ×2 (10:52→23:50)
[2024-03-29] MEDS: Fluticasone 44 Mcg Inhaler 2 PUFF INHALATION ×2 (11:15→22:25)
[2024-03-29 11:47] LABS: Bedside Glucose 125 mg/dL (74-106)
[2024-03-29] MEDS: Glycopyrrolate 1 MG TABLET 2 MG PO (12:25)
[2024-03-29] MEDS: Acetaminophen 500 MG Tablet 1000 MG PO ×2 (12:31→18:07)
[2024-03-29] MEDS: Insulin Lispro 100 UNIT/ML INSULN.PEN 22 UNIT SC (13:06)
[2024-03-29 15:29] LABS: Bedside Glucose 109 mg/dL (74-106)
[2024-03-29] MEDS: Insulin Lispro 100 UNIT/ML INSULN.PEN 35 UNIT SC (16:52)
[2024-03-29 19:12] LABS: Bedside Glucose 38 mg/dL (74-106)
[2024-03-29 19:25] LABS: Glucose 47 mg/dL (74-106)
[2024-03-29] MEDS: Glucose Oral Gel 15 GM Tube PO (19:31)
[2024-03-29 20:33] LABS: Bedside Glucose 71 mg/dL (74-106)
[2024-03-29 20:33] LABS: Bedside Glucose 50 mg/dL (74-106)
[2024-03-29 20:33] LABS: Bedside Glucose 75 mg/dL (74-106)
[2024-03-29 22:31] LABS: Bedside Glucose 143 mg/dL (74-106)
[2024-03-29] MEDS: Insulin Glargine-YFGN 100 UNIT/ML Pen 12 UNIT SC (23:22)
[2024-03-30 01:30] VITALS: BP 145/91; PULSE 102; RESP 16; TEMP 36.8; O2SAT 97
[2024-03-30] MEDS: Acetaminophen 500 MG Tablet 1000 MG PO ×4 (01:33→21:17)
[2024-03-30 03:10] LABS: Bedside Glucose 111 mg/dL (74-106)
[2024-03-30 06:41] LABS: Bedside Glucose 114 mg/dL (74-106)
[2024-03-30 08:25] VITALS: BP 134/90; PULSE 94; RESP 16; TEMP 36.7; O2SAT 96
--- NOTE | 2024-03-30 08:38 | PN.OBGYN_ITS ---
Subjective Subjective Patient doing well without complaints. Tolerating PO. Ambulating and voiding without difficulty. Feeding well. Denies chest pain, shortness of breath, calf pain/swelling, fevers, chills, lightheadedness. Objective Data Objective Data Vital Signs: Vital Signs Temp Pulse Resp BP Pulse Ox O2 Del Method 98.1 F 94 16 134/90 H 96 Room Air 03/30/24 08:25 03/30/24 08:25 03/30/24 08:25 03/30/24 08:25 03/30/24 08:25 03/30/24 08:25 Oxygen Delivery Method Room Air Weight: 299 lb 3.2 oz Body Mass Index (BMI) 48.2 Intake & Output: Intake and Output for Last 24 Hours 03/28/24 03/29/24 03/30/24 23:59 23:59 23:59 Intake Total 3811.57 / 3811.57 250 / 250 Output Total 1974 500 / 500 Balance 1836.57 / 1836.57 -250 / -250 Lab / Micro Data 03/29/24 00:20 03/29/24 19:00 Labs: Laboratory Results - last 24 hr 03/29/24 10:49: POC Glucose 125 H 03/29/24 15:01: POC Glucose 109 H 03/29/24 18:50: POC Glucose 38 L* 03/29/24 19:00: Glucose 47 L 03/29/24 19:13: POC Glucose 50 L 03/29/24 19:29: POC Glucose 71 L 03/29/24 19:54: POC Glucose 75 03/29/24 22:10: POC Glucose 143 H 03/30/24 02:50: POC Glucose 111 H 03/30/24 06:21: POC Glucose 114 H ROS Constitutional Constitutional: Denies chills, fatigue, fever(s), poor appetite or weakness Eyes Eyes: Denies blurry vision, change in vision, seeing flashes or spots in vision ENT HEENT: Denies dizziness, headache(s), loss taste/smell or sore throat Cardiovascular Cardiovascular: Denies chest pain, dizziness, dyspnea, irregular heart rhythm, palpitations or rapid heart rate Respiratory/Chest Respiratory/Chest: Denies chest tightness, cough, dyspnea or breast pain Gastrointestinal Gastrointestinal: Denies abdominal pain, constipation or vomiting Genitourinary Genitourinary: Denies dysuria or flank pain Musculoskeletal Musculoskeletal: Denies difficulty walking, joint pain, limited range of motion or numbness Neurologic Neurologic: Denies abnormal movements, abnormal speech, dizziness, numbness, seizure-like activity or syncope Psychiatric Psychiatric: Denies anxiety, behavioral changes, change in appetite, confusion, depression or suicidal thoughts Physical Exam Const alert, oriented x3 and no apparent distress General Appearance: cooperative and comfortable Resp normal respiratory effort Cardio regular rate GI normal to inspection, nondistended, normoactive bowel sounds GI Narrative: uterus is firm below umbilicus Palpation: soft Back/Spine no CVA tenderness and thoraco-lumbar ROM normal Extremity normal to inspection, no clubbing, cyanosis or edema, no calf tenderness and no pedal edema Psych mental status grossly normal, thought process normal, cooperative, affect normal, speech normal, activity/motor behavior normal, denies homicidal ideation and denies suicidal ideation Assessment & Plan (1) Vaginal delivery: (2) Headache: COMMENT: PEC labs negative. BP stable. (3) Depression: COMMENT: counseling recommend, consider medication . (4) Rh negative status during : QUALIFIERS: Trimester: third trimester Qualified Code(s): O26.893 - Other specified related conditions, third trimester; Z67.91 - Unspecified blood type, Rh negative COMMENT: RHogam PRN and at 28 weeks (5) Type 1 diabetes mellitus affecting in first trimester, antepartum: COMMENT: a1c is 6.8; not testing QID or tracking. Slight DD patient:ref to [facility] for management: sees them weekly. PLAN: Plan s/p PPD # 1 1. routine post delivery care 2. breast feeding- support given 3. rh neg work up complete 4. rubella immune 5. halfing the insulin again today 6. possible dc tonight
[2024-03-30] MEDS: Insulin Lispro 100 UNIT/ML INSULN.PEN 10 UNIT SC (09:11)
[2024-03-30] MEDS: Insulin Glargine-YFGN 100 UNIT/ML Pen 11 UNIT SC (10:20)
[2024-03-30] MEDS: Famotidine 20 MG Tablet PO ×2 (10:21→23:55)
[2024-03-30] MEDS: Fluticasone 44 Mcg Inhaler 2 PUFF INHALATION ×2 (10:21→21:18)
[2024-03-30] MEDS: Glycopyrrolate 1 MG TABLET 2 MG PO (10:22)
[2024-03-30 12:51] LABS: Bedside Glucose 92 mg/dL (74-106)
[2024-03-30] MEDS: Insulin Lispro 100 UNIT/ML INSULN.PEN 11 UNIT SC (13:57)
[2024-03-30 15:00] VITALS: BP 140/83; PULSE 102; RESP 16; TEMP 36.1; O2SAT 96
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
[2024-03-30] MEDS: NIFEdipine 30 MG Tablet PO (17:16)
[2024-03-30] MEDS: Insulin Lispro 100 UNIT/ML INSULN.PEN 17 UNIT SC (17:20)
[2024-03-30] MEDS: 0.9% Saline Lock 10 ML Syringe IV (17:23)
[2024-03-30 17:46] LABS: Bedside Glucose 88 mg/dL (74-106)
[2024-03-30 20:10] VITALS: BP 138/87; PULSE 96; RESP 16; TEMP 36.6; O2SAT 99
[2024-03-30 21:38] LABS: Bedside Glucose 99 mg/dL (74-106)
[2024-03-30] MEDS: metFORMIN (XR) 500 MG Tablet PO (22:53)
[2024-03-31 02:00] VITALS: BP 145/89; PULSE 90; RESP 16; TEMP 36.4; O2SAT 99
[2024-03-31] MEDS: Acetaminophen 500 MG Tablet 1000 MG PO ×2 (03:38→12:23)
[2024-03-31 03:50] VITALS: BP 134/92
[2024-03-31 06:02] LABS: Bedside Glucose 111 mg/dL (74-106)
[2024-03-31 07:50] VITALS: BP 111/76; PULSE 98; RESP 16; TEMP 36.5
[2024-03-31] MEDS: NIFEdipine 30 MG Tablet PO (09:29)
[2024-03-31] MEDS: Famotidine 20 MG Tablet PO (09:30)
[2024-03-31] MEDS: Insulin Lispro 100 UNIT/ML INSULN.PEN 10 UNIT SC (09:30)
[2024-03-31] MEDS: Fluticasone 44 Mcg Inhaler 2 PUFF INHALATION (09:32)
[2024-03-31] MEDS: Insulin Glargine-YFGN 100 UNIT/ML Pen 11 UNIT SC (09:36)
--- NOTE | 2024-03-31 09:38 | PN.OBGYN_ITS ---
Subjective Subjective Patient doing well without complaints. Tolerating PO. Ambulating and voiding without difficulty. Feeding well. Denies chest pain, shortness of breath, calf pain/swelling, fevers, chills, lightheadedness. Objective Data Objective Data Vital Signs: Vital Signs Temp Pulse Resp BP Pulse Ox O2 Del Method 97.7 F L 98 16 111/76 99 Room Air 03/31/24 07:50 03/31/24 07:50 03/31/24 07:50 03/31/24 07:50 03/31/24 02:00 03/31/24 02:00 Oxygen Delivery Method Room Air Weight: 299 lb 3.2 oz Body Mass Index (BMI) 48.2 Intake & Output: Intake and Output for Last 24 Hours 03/29/24 03/30/24 03/31/24 23:59 23:59 23:59 Intake Total 250 / 250 Output Total 500 / 500 Balance -250 / -250 Lab / Micro Data 03/29/24 00:20 03/29/24 19:00 Labs: Laboratory Results - last 24 hr 03/30/24 12:28: POC Glucose 92 03/30/24 17:19: POC Glucose 88 03/30/24 21:14: POC Glucose 99 03/31/24 05:43: POC Glucose 111 H Micro: Microbiology 03/27/24 Unknown Genital vaginal Group B Streptococcus Culture - Final Group B Beta Streptococcus is not isolated. Physical Exam Const alert, oriented x3 and no apparent distress General Appearance: cooperative and comfortable Resp normal respiratory effort Cardio regular rate GI normal to inspection, nondistended, normoactive bowel sounds GI Narrative: uterus is firm below umbilicus Palpation: soft Back/Spine no CVA tenderness and thoraco-lumbar ROM normal Extremity normal to inspection, no clubbing, cyanosis or edema, no calf tenderness and no pedal edema Psych mental status grossly normal, thought process normal, cooperative, affect normal, speech normal, activity/motor behavior normal, denies homicidal ideation and denies suicidal ideation Assessment & Plan (1) Vaginal delivery: COMMENT: (2) Type 1 diabetes mellitus affecting in first trimester, antepartum: COMMENT: a1c is 6.8; not testing QID or tracking. Slight DD patient:ref to [facility] for management: sees them weekly. PLAN: f/u in 1 week with endocrine. insulin decreased. BS 111 fasting this AM, ac under 100. CN Commun: reviewed with Dr. Parmar. rx sent by physician to pharmacy this AM. (3) Morbid obesity with BMI of 40.0-44.9, adult: PLAN: Plan s/p PPD # 2 1. routine post delivery care 2. breast feeding- support given 3. rh positive 4. rubella immune 5. d/c home today
--- NOTE | 2024-03-31 09:41 | PCM.DC.SUM ---
Providers Date of Admission: 03/27/24 Primary Care Physician: Dr. Hilary Marie MD Reason For Visit: LABOR AND DELIVERY Diagnosis Discharge Diagnosis (1) Vaginal delivery: Status: Acute Code(s): O80 - Encounter for full-term uncomplicated delivery (2) Type 1 diabetes mellitus affecting in first trimester, antepartum: Status: Acute Code(s): O24.011 - Pre-existing type 1 diabetes mellitus, in , first trimester Plan: f/u in 1 week with endocrine. insulin decreased. BS 111 fasting this AM, ac under 100. (3) Morbid obesity with BMI of 40.0-44.9, adult: Status: Acute Code(s): E66.01 - Morbid (severe) obesity due to excess calories; Z68.41 - Body mass index [BMI] 40.0-44.9, adult Plan s/p PPD # 2 1. routine post delivery care 2. breast feeding- support given 3. rh positive 4. rubella immune 5. d/c home today Medications at Discharge Home Medications ondansetron 4 mg disintegrating tablet 4 mg PO TID PRN nausea and vomiting #21 tabs 12/26/22 flash glucose sensor (FreeStyle Shobha 2 Sensor kit) 09/28/23 PNV 153-FA 400 mcg-om3 35 mg-dha 25 mg-epa 5 mg-fish oil chew tablet 1 tab PO DAILY 90 days #90 tabs 11/09/23 magnesium oxide 400 mg (241.3 mg magnesium) tablet 400 mg PO DAILY 11/25/23 pen needle, diabetic 29 gauge x 1/2 (Ultra-Thin II Insulin Pen [place]) #100 ea 12/13/23 albuterol sulfate 90 mcg/actuation aerosol inhaler 2 puff inhalation Q4H PRN wheezing #8.5 grams 02/07/24 fluticasone propionate 44 mcg/actuation HFA aerosol inhaler 2 puff inhalation BID #10.6 grams 02/08/24 lansoprazole 30 mg capsule,delayed release 30 mg PO DAILY 1 month #30 caps 02/23/24 metformin 500 mg tablet,extended release 24 hr 500 mg PO QHS 02/24/24 glycopyrrolate 2 mg tablet 2 mg PO DAILY #30 tabs 03/02/24 famotidine 20 mg tablet (Acid Controller) 20 mg PO BID 03/09/24 insulin glargine 100 unit/mL subcutaneous solution (Lantus U-100 Insulin) 46 unit subcut .Q AM 03/16/24 insulin glargine 100 unit/mL subcutaneous solution (Lantus U-100 Insulin) 46 unit subcut QPM 03/16/24 insulin lispro 100 unit/mL subcutaneous pen (Humalog KwikPen (U-100) Insulin) 40 unit subcut BREAKFAST 03/16/24 insulin lispro 100 unit/mL subcutaneous pen (Humalog KwikPen (U-100) Insulin) 44 unit subcut LUNCH 03/16/24 insulin lispro 100 unit/mL subcutaneous pen (Humalog KwikPen (U-100) Insulin) 70 unit subcut DINNER 03/16/24 insulin glargine-yfgn 100 unit/mL (3 mL) subcutaneous pen 11 unit (0.11 mL) subcut 1000 #15 mL 03/31/24 insulin glargine-yfgn 100 unit/mL (3 mL) subcutaneous pen 11 unit (0.11 mL) subcut QPM #15 mL 03/31/24 insulin lispro 100 unit/mL subcutaneous pen (Humalog KwikPen (U-100) Insulin) 10 unit (0.1 mL) subcut BREAKFAST #15 mL 03/31/24 insulin lispro 100 unit/mL subcutaneous pen (Humalog KwikPen (U-100) Insulin) 11 unit (0.11 mL) subcut LUNCH #15 mL 03/31/24 insulin lispro 100 unit/mL subcutaneous pen (Humalog KwikPen (U-100) Insulin) 17 unit (0.17 mL) subcut DINNER #15 mL 03/31/24 lansoprazole 15 mg capsule,delayed release 30 mg (2 x 15 mg) PO DAILY #90 caps 03/31/24 metformin 500 mg tablet,extended release 24 hr 500 mg PO QHS #90 tabs 03/31/24 nifedipine 30 mg tablet,extended release 24 hr 30 mg PO DAILY #90 tabs 03/31/24 Hospital Course Operations None Procedures None Summary of Care Provided Minutes Spent on Discharge: 15 Hospital Course: IOL for uncontrolled diabetes. , with normal pp course. bp closely monitored. Physical Exam Const alert, oriented x3 and no apparent distress General Appearance: cooperative and comfortable Resp normal respiratory effort Cardio regular rate GI normal to inspection, nondistended, normoactive bowel sounds GI Narrative: uterus is firm below umbilicus Palpation: soft Back/Spine no CVA tenderness and thoraco-lumbar ROM normal Extremity normal to inspection, no clubbing, cyanosis or edema, no calf tenderness and no pedal edema Psych mental status grossly normal, thought process normal, cooperative, affect normal, speech normal, activity/motor behavior normal, denies homicidal ideation and denies suicidal ideation Weight / BMI Weight Weight: 299 lb 3.2 oz Body Mass Index (BMI) 48.2 ABG / Lab / Microbiology Data 03/29/24 00:20 03/29/24 19:00 Laboratory: Laboratory Results - last 24 hr 03/30/24 12:28: POC Glucose 92 03/30/24 17:19: POC Glucose 88 03/30/24 21:14: POC Glucose 99 03/31/24 05:43: POC Glucose 111 H Microbiology: Microbiology 03/27/24 Unknown Genital vaginal Group B Streptococcus Culture - Final Group B Beta Streptococcus is not isolated. D/C Instructions Discharge Diet: No restrictions May resume sexual activity in: 4-6 weeks Call your doctor if your incision/area has: Continuous Slow Oozing, Sudden Increased Bleeding, Increased Pain/ Swelling, Increased Redness and Foul Smelling Discharge DC O2, CPAP, BIPAP Needs Home O2 Discharge instructions: No Please Follow Up With: Shelbi Dewitt DO When: Call [phone] to make an appointment with your doctor in 6 weeks. If you had elevated blood pressure or 4th degree laceration, you will need to be seen in 2 weeks. Meaningful Use Info Meaningful Use Meaningful Use Diagnoses (Choose all that apply): None applicable Ischemic Stroke Statin Dosing Therapy Reference: STATIN DOSE THERAPY REFERENCE: * Patients > 75 years receive moderate or high dose statin therapy. * Patients 75 years or YOUNGER should receive HIGH intensity statin dose unless contraindicated. You will be required to document reason for non-treatment if statin daily dose does not meet guidelines. HIGH DOSE STATIN THERAPY DAILY Atorvastatin > than or = to 40 mg Rosuvastatin > than or = to 20 mg Amlodipine + Atorvastatin > than or = to 2.5/40 mg Ezetimibe + Simvastatin 10/80 mg Simvastatin 80mg Discharge Plan Admission Admit Date/Time: 03/27/24 16:55 Attending Provider: Shelbi Dewitt Primary Care Provider: Hilary Marie Discharge Orders/Prescriptions Prescriptions: New nifedipine 30 mg Tablet Extended Release 24hr 30 mg PO DAILY Qty: 90 0RF lansoprazole 15 mg Capsule,Delayed Release(Dr/Ec) 30 mg PO DAILY Qty: 90 0RF metformin 500 mg Tablet Extended Release 24 Hr 500 mg PO QHS Qty: 90 0RF insulin lispro [Humalog KwikPen Insulin] 100 unit/mL Insulin Pen 10 unit subcut BREAKFAST Qty: 15 0RF insulin lispro [Humalog KwikPen Insulin] 100 unit/mL Insulin Pen 17 unit subcut DINNER Qty: 15 0RF insulin lispro [Humalog KwikPen Insulin] 100 unit/mL Insulin Pen 11 unit subcut LUNCH Qty: 15 0RF insulin glargine-yfgn 100 unit/mL (3 mL) Insulin Pen 11 unit subcut 1000 Qty: 15 0RF insulin glargine-yfgn 100 unit/mL (3 mL) Insulin Pen 11 unit subcut QPM Qty: 15 0RF Continued (DME) FreeStyle Shobha 2 Sensor Kit See Rx Instructions .Route Rx Instructions: As directed metformin 500 mg tablet extended release 24 hr 500 mg PO QHS famotidine [Acid Controller] 20 mg tablet 20 mg PO BID (DME) pen needle, diabetic [Ultra-Thin II Ins Pen [place]] 29 gauge x 1/2 needle See Rx Instructions .Route Qty: 100 1RF Rx Instructions: As directed for DMII (E11.9); Z34.90 albuterol sulfate 90 mcg/actuation HFA aerosol inhaler 2 puff INHALATION Q4H PRN (Reason: wheezing) Qty: 8.5 3RF fluticasone propionate 44 mcg/actuation HFA aerosol inhaler 2 puff inhalation BID Qty: 10.6 4RF Rx Instructions: administer with spacer glycopyrrolate 2 mg tablet 2 mg PO DAILY Qty: 30 2RF Discontinued aspirin 81 mg tablet,delayed release (DR/EC) 81 mg PO DAILY No Action ondansetron 4 mg tablet,disintegrating 4 mg PO TID PRN (Reason: nausea and vomiting) Qty: 21 1RF magnesium oxide 400 mg (241.3 mg magnesium) tablet 400 mg PO DAILY insulin glargine [Lantus U-100 Insulin] 100 unit/mL solution 46 unit subcut .Q AM insulin glargine [Lantus U-100 Insulin] 100 unit/mL solution 46 unit subcut QPM insulin lispro [Humalog KwikPen Insulin] 100 unit/mL insulin pen 40 unit subcut BREAKFAST insulin lispro [Humalog KwikPen Insulin] 100 unit/mL insulin pen 44 unit subcut LUNCH insulin lispro [Humalog KwikPen Insulin] 100 unit/mL insulin pen 70 unit subcut [facility] no.[id number] 400 mcg-35 mg- 25 mg-5 mg tablet,chewable 1 tab PO DAILY 90 Days Qty: 90 4RF lansoprazole 30 mg capsule,delayed release(DR/EC) 30 mg PO DAILY 30 Days Qty: 30 5RF Rx Instructions: Take one tablet by mouth daily Referrals / Follow Up: Hilary Mraie MD [Primary Care Provider] - Disposition Disposition (needs filled in before D/C Order can be placed): Home, Self Care
--- NOTE | 2024-03-31 09:42 | CASEMGMT ---
Labor and Delivery Date: 03/31/24 Time: 0900- ongoing Assessment: Maile called [facility] and spoke to hotline screener, Herve. Maile informed Herve that parents were observed to co-sleep throughout the night several times by bedside RN. Bedside RN educated them on safe sleep. Maile also informed Herve that parents may need a car seat to help with discharge. Sw presented to beside and met with parents. MOB observed sitting in reclining chair holding and eating breakfast. FOB sitting on couch, both welcoming of sw. FOB states that they made several calls yesterday to get appointments scheduled. MOB reports that [facility] has a waitlist, she is number [phone]. FOB states that he encouraged MOB to consider going to [facility] for counseling, which MOB is receptive to. ABHIJEET states that he called [facility] to get an appointment scheduled, but they will not do it until the baby is ready for discharge. - Maile informed parents that [facility] screened in her referral and a community case manager will be presenting to bedside to meet with them. FOB states that he was caught off guard yesterday when [facility] was mentioned, and he states that it caused him to get worried that their baby may be taken away from them. Sw encouraged parents to utilize [facility] as a resource, and parents expressed understanding. - Maile informed parents that maile will introduce them to the assigned community case manager when she presented to hospital to meet with them. Maile spoke to charge nurse, Consuelo, who states that the baby did do her car seat challenge last night and she passed. The car seat that parents have is cleared to be used for discharge. Maile stated she would inform [facility] that their car seat is no longer required. Plan: Sw continue to follow throughout admission to assist with resource linkage and discharge planning needs. Samantha Estrada, PRESS SETTER, PROJECT MANAGER/DESIGN MANAGER
[2024-03-31 09:55] LABS: Bedside Glucose 97 mg/dL (74-106)
[2024-03-31] MEDS: Glycopyrrolate 1 MG TABLET 2 MG PO (12:22)
[2024-03-31] MEDS: Insulin Lispro 100 UNIT/ML INSULN.PEN 11 UNIT SC (12:25)
--- NOTE | 2024-03-31 12:51 | NURSING ---
Mom and dad observed being alert to baby's needs, feedings, diapering. Holding baby and talking to baby.
[2024-03-31 12:56] LABS: Bedside Glucose 97 mg/dL (74-106)
[2024-03-31 14:00] VITALS: BP 130/92; PULSE 105; RESP 16; TEMP 37.1
--- NOTE | 2024-04-04 17:03 | NURSING ---
Follow up phone call attempted. No answer, left a voicemail.
== END 2024-03-31 14:25 | disposition home or self-care (01) | DRG 560 ==
LOC: WPOUT 17:02 → WP 17:02
PROVIDERS: Admitting Provider Obstetrics & Gynecology; PCP Internal Medicine; Referring Provider Advanced Practice Midwife; Visit Provider Obstetrics & Gynecology
DX: O13.4 Gestational [pregnancy-induced] hypertension without significant proteinuria, complicating childbirth (principal); Z37.0 Single live birth; O24.02 Pre-existing type 1 diabetes mellitus, in childbirth; F32.A Depression, unspecified; O99.354 Diseases of the nervous system complicating childbirth; O99.214 Obesity complicating childbirth; E10.9 Type 1 diabetes mellitus without complications; E66.01 Morbid (severe) obesity due to excess calories; Z79.4 Long term (current) use of insulin; K21.9 Gastro-esophageal reflux disease without esophagitis; G47.33 Obstructive sleep apnea (adult) (pediatric); R03.0 Elevated blood-pressure reading, without diagnosis of hypertension; O99.62 Diseases of the digestive system complicating childbirth; O99.344 Other mental disorders complicating childbirth; Z3A.36 36 weeks gestation of pregnancy; Z79.51 Long term (current) use of inhaled steroids; Z79.82 Long term (current) use of aspirin; Z79.84 Long term (current) use of oral hypoglycemic drugs; Z79.899 Other long term (current) drug therapy
CPT/HCPCS: 59025; 59050; 76819; 82565; 82570; 82947; 82962; 83615; 84156; 84450; 84460; 84550; 85027; 85610; 85730; 86780; 86850; 86900; 86901; 87081; 87653; 99221; A4216; G0378

== ENCOUNTER → 2024-05-03 | Outpatient (CLI) | payer MEDICAID, SELFPAY ==
[2024-05-03 14:47] LABS: Vitamin D,25 Hydroxy 26.8 ng/mL (30-100)
== END | disposition home or self-care (01) ==
LOC: BWCLAB 11:09
PROVIDERS: PCP Internal Medicine; Referring Provider Nurse Practitioner Women's Health; Visit Provider Nurse Practitioner Women's Health
DX: F32.A Depression, unspecified (principal)
CPT/HCPCS: 36415; 82306

== ENCOUNTER → 2024-07-26 | Outpatient (CLI) | payer MEDICAID, SELFPAY ==
[2024-07-26 08:17] LABS: Mucous, Urine 0 SEEN /hpf (<or=2+); Red Blood Cells-Urine 0 SEEN /hpf (0-5)
[2024-07-26 12:28] LABS: Color, Urine Yellow (Yellow); Glucose, Dipstick Normal (Normal); Ketone-Dipstick Negative (Negative); Leukocyte Esterase-Dipstick 100 /ul (Negative); Nitrite-Dipstick Negative (Negative); Occult Blood-Urine Negative /ul (Negative); Protein-Dipstick 30 mg/dl (Negative); Urine Bilirubin Dipstick Negative (Negative); Urine Clarity Clear (Clear); Urine Urobilinogen Normal (Normal)
[2024-07-26 12:55] LABS: White Blood Cells 0-5 SEEN /hpf (0-5)
[2024-07-26 12:56] LABS: Bacteria RARE /hpf (None Seen); Squamous Epithelial Cells - UA 5-10 SEEN /hpf (5-10)
== END | disposition home or self-care (01) ==
LOC: LABSPEC 08:15
PROVIDERS: PCP Internal Medicine; Referring Provider Physician Assistant; Visit Provider Physician Assistant
DX: R30.0 Dysuria (principal)
CPT/HCPCS: 81001; 87086; 87088

== ENCOUNTER → 2024-09-06 | Outpatient (CLI) | payer MEDICAID, SELFPAY | END | disposition home or self-care (01) | LOC: PSN 07:47 | PROVIDERS: PCP Internal Medicine; Referring Provider Internal Medicine Critical Care Medicine; Visit Provider Internal Medicine Critical Care Medicine | DX: J45.909 Unspecified asthma, uncomplicated (principal) | CPT/HCPCS: 94060; 94726; 94729 ==

== ENCOUNTER → 2024-11-23 | Outpatient (CLI) | payer MEDICAID, SELFPAY ==
--- OUTSIDE RECORDS SUMMARY | 2024-11-23 07:02 | XMS RPT_ITS | CCD ---
Author Organization [facility] Care Team Providers Care Label Operator Name Role Phone Unavailable Primary Care Provider UnavailMaciej Kunz DO Primary Care Provider Maciej Jaime DO Primary Care Provider [phone] Klutts POWERHOUSE MECHANIC APPRENTICE.Ken KRUEGER Unavailable Unknown, Referring Provider Unavailable Unav ailable Unavailable Unavailable Unavailable Primary Care Provider UnavailMaciej Kunz DO Primary Care Provider [phone] [employer] POWERHOUSE MECHANIC APPRENTICE.Ken KRUEGER Unavailable UNKNOWN, PCP Primary Care Unavailable PORFIRIO Mccoy Referring U navailable PORFIRIO Mccoy Attending U navailable Jason POWERHOUSE MECHANIC APPRENTICE.Ken KRUEGER Unavailable Fifi Morales MD Primary Care Provider Mike POWERHOUSE MECHANIC APPRENTICE - Suzanna KRUEGER Primary Care Provider Fifi Morales MD Primary Care Provider FERNANDA CERDA Attending Unavailable TIKI NUNEZ Attending Unavailable FERNANDA CERDA Referring Unavailable KEN GOMEZ Attending Unavailable KEN GOMEZ Referring Unavailable Dr. Rafael Bear Attending Provider [phone] Fifi Morales MD Primary Care Provider Unavailable Primary Care Provider UnavailDr. Rafael Carson Attending Provider Care Physician, No Primary Primary Care Provider Unavailable Care Physician, No Primary Referring Provider Un available Care Physician, No Primary Primary Care Provider Unavailable Care Physician, No Primary Referring Provider Un available Dr. Rafael Bear Attending Provider Care Physician, No Primary Primary Care Provider Unavailable Care Physician, No Primary Referring Provider Un available Dr. Rafael Bear Attending Provider Dr. Keagan Shrestha Attending Provider [phone] Keagan Shrestha Primary Care Provider Dr. Keagan Shrestha Referring Provider [phone] Dr. Rafael Bear Other Provider Dr. Earl Leggett Attending Provider Dr. Yayo Martell Referring Provider Fifi Morales MD Primary Care Provider Keagan Shrestha MD Primary Care Provider FIFI MORALES Primary Care Unavailable FIFI MORALES Primary Care Unavailable ARNALDO BOWIE Referring Unavailable KEAGAN SHRESTHA Primary Care Unavailable KEAGAN SHRESTHA Primary Care Unavailable KEAGAN SHRESTHA Primary Care Unavailable Mike MCNAMARAN - RETOUCHER PHOTOENGRAVING, Suzanna Primary Care Provider Keagan Shrestha MD Primary Care Provider [phone] No wire wheeler, Md Primary Care Provider Jenniffer vailable SHELBI PARMAR Referring Unavailab le NO PRIMARY CARE, Primary Care Unavailable LUIS HUMPHREY Attending Unavailable SHELBI PARMAR Referring Unavailab le NO PRIMARY CARE, Primary Care Unavailable ANIRUDH DE LOS SANTOS Referring Unavailzuleika e SHELBI PARMAR Attending Unavailab le NO PRIMARY CARE, Primary Care Unavailable REGINA PEARSON Attending Unavailable SHELBI PARMAR Referring Unavailab le NO PRIMARY CARE, Primary Care Unavailable NO PRIMARY CARE, Primary Care Unavailable REGINA PEARSON Attending Unavailable SHELBI PARMAR Referring Unavailab BALA Mcguire Attending Unavailable BALA CONCEPCION Referring Unavailable NO PRIMARY CARE, Primary Care Unavailable FIDEL DUTTA Attending Unavailable SHELBI PARMAR Referring Unavailab le NO PRIMARY CARE, Primary Care Unavailable NO PRIMARY CARE, Primary Care Unavailable ANIRUDH DE LOS SANTOS Referring Unavailabl AMENA Alexander Attending Unavailable FIDEL DUTTA Attending Unavailable SHELBI PARMAR Referring Unavailab le NO PRIMARY CARE, Primary Care Unavailable NO PRIMARY CARE, Primary Care Unavailable DAY BOWIE Attending Unavailable SHELBI PARMAR Referring Unavailab le NO PRIMARY CARE, Primary Care Unavailable SHELBI REILLY Attending Unavailable SHELBI PARMAR Referring Unavailab le REGINA PEARSON Attending Unavailable NO PRIMARY CARE, Primary Care Unavailable SHELBI PARMAR Referring Unavailab REGINA Harden Attending Unavailable NO PRIMARY CARE, Primary Care Unavailable SHELBI PARMAR Referring Unavailab le ANIRUDH DE LOS SANTOS Referring Unavailabl e SHELBI PARMAR Attending Unavailab le NO PRIMARY CARE, Primary Care Unavailable BALA CONCEPCION Attending Unavailable BALA CONCEPCION Referring Unavailable NO PRIMARY CARE, Primary Care Unavailable BALA CONCEPCION Attending Unavailable BALA CONCEPCION Referring Unavailable NO PRIMARY CARE, Primary Care Unavailable NO PRIMARY CARE, Primary Care Unavailable REGINA PEARSON Attending Unavailable SHELBI PARMAR Referring Unavailab DAY Britton Attending Unavailable NO PRIMARY CARE, Primary Care Unavailable SHELBI PARMAR Referring Unavailab le ANIRUDH DE LOS SANTOS Referring Unavailabl e FIDEL DUTTA Attending Unavailable NO PRIMARY CARE, Primary Care Unavailable NO PRIMARY CARE, Primary Care Unavailable ANIRUDH DE LOS SANTOS Referring Unavailabl e FIDEL DUTTA Attending Unavailable JUAN FARLEY Attending Unavailable NO PRIMARY CARE, Primary Care Unavailable ANIRUDH DE LOS SANTOS Referring Unavailabl e FIDEL DUTTA Attending Unavailable REGINA PEARSON Attending Unavailable NO PRIMARY CARE, Primary Care Unavailable VANDEVELDE, SHELBI R Referring Unavailab le LUIS HUMPHREY Attending Unavailable DAY BOWIE Attending Unavailable NO PRIMARY CARE, Primary Care Unavailable SHELBI PARMAR Referring Unavailab le NO PRIMARY CARE, Primary Care Unavailable SHELBI PARMAR Referring Unavailab le BALA CONCEPCION Attending Unavailable SHELBI REILLY Attending Unavailable NO PRIMARY CARE, Primary Care Unavailable SHELBI PARMAR Referring Unavailab SHELBI Shelton Attending Unavailable NO PRIMARY CARE, Primary Care Unavailable SHELBI PARMAR Referring Unavailab le REGINA PEARSON Attending Unavailable NO PRIMARY CARE, Primary Care Unavailable SHELBI PARMAR Referring Unavailab FIDEL Vera Attending Unavailable Andrew HOLLINS, Psychiatricharmony Primary Care Provider Fady HOLLINS, Dr. Richard Primary Care Provider [phone] Terese LOPEZ, Dr. Jewell Attending Provider Dr. Best Gudino DO Emergency Provider Dr. Keagan Shrestha MD Referring Provider Dr. Shelbi Dewitt DO Attending Provider Dr. Shelbi Dewitt DO Referring Provider Danie AVILA-Kayleen Avalos Attending Provider [phone] Dr. Keagan Shrestha MD Attending Provider Rocco HOLLINS, Dr. Martinez Attending Provider Dr. Anirudh De Los Santos MD Referring Provider Dr. Anirudh De Los Santos MD Other Provider REGINA CHAND Attending Provider REGINA CHAND Referring Provider Amber Ram CNM Attending Provider [phone] Dr. Best Gudino DO Referring Provider Ana Lu CNM Attending Provider Ana Lu CNM Referring Provider Yo MCCLELLAND, Amber Other Provider [phone] Shelbi Dewitt DO Other Provider [phone] Aly MCCLELLAND, Ana Other Provider Yo QUEZADAM, Amber Referring Provider [phone] Chelita Vargas DO, Dr. Mario Admit Provider [phone] Tiffanie Mcintyre PA-C Attending Provider Danie DISPLAY MAKER-C, Kayleen Referring Provider Fady HOLLINS, Dr. Richard Primary Care Provider [phone] Yo MCCLELLAND, Amber Referring Provider [phone] Dr. Shelbi Dewitt DO Admit Provider [phone] Chelita Vargas DO, Dr. Mario Attending Provider Chelita Vargas DO, Dr. Mario Other Provider [phone] Yo MCCLELLAND, Amber Attending Provider [phone] Ana Lu CNM Attending Provider [phone] Keagan Shrestha MD Referring Provider Tiffanie Mcintyre PA-C Attending Provider Danie DISPLAY MAKER-C, Kayleen Attending Provider [phone] Danie DISPLAY MAKER-C, Kayleen Referring Provider [phone] González Rutledge Attending Provider González Rutledge Referring Provider [phone] Fady HOLLINS, Dr. Richard Primary Care Provider [phone] Tiffanie Mcintyre PA-C Attending Provider FADY, KEAGAN Primary Care Unavailable MUKUND FONSECA Attending Unavailable JOHN HARDWICK Attending Unavailable FADY, KEAGAN Primary Care Unavailable JOHN HARDWICK Attending Unavailable AFDY, KEAGAN Primary Care Unavailable JOHN HARDWICK Attending Unavailable FADY, KEAGAN Referring Unavailable ANDREW, SHIVONNE Primary Care Unavailable MYESHA DUNBAR Attending Unavailable DUNBAR, MYESHA Referring Unavailable FADY, KEAGAN Primary Care Unavailable MYESHA DUNBAR Attending Unavailable FADY, KEAGAN Primary Care Unavailable TAMIRISA, MARIA VICTORIA Admitting Unavailable LUIS HUMPHREY Attending Unavailable FADY, KEAGAN Primary Care Unavailable StatesboroTrey Referring Unavailable DanieKayleen kat Attending Unavailable [place], Keagan Primary Care Unavailable Shelbi Dewitt Attending Unavailabl e Vande Velde, Shelbi Referring Unavailabl e [place], Keagan Primary Care Unavailable [place], Keagan Primary Care Unavailable Anirudh De Los Santos Attending Unavailable Anirudh De Los Santos Referring Unavailable Amber Ram Attending Unavailable Amber Ram Consulting Unavailable Fady, Keagan Primary Care Unavailable VandShelbi Kauffman Consulting Unavailabl e [place], Keagan Primary Care Unavailable Shelbi Dewitt Admitting Unavailabl e Shelbi Dewitt Attending Unavailabl e Amber Ram Referring Unavailable Fady, Keagan Primary Care Unavailable Amber Ram Attending Unavailable Nomi Duvall Referring Unavailable BrownNomi Attending Unavailable [place], Keagan Primary Care Unavailable Fady, Keagan Primary Care Unavailable Anirudh De Los Santos Attending Unavailable VandShelbi Kauffman Attending Unavailabl e Fady, Keagan Referring Unavailable [place], Keagan Primary Care Unavailable [place], Keagan Referring Unavailable Amber Ram Attending Unavailable Fady, Keagan Primary Care Unavailable Fady, Keagan Referring Unavailable VandShelbi Kauffman Attending Unavailabl e Fady, Keagan Primary Care Unavailable Schwiger, Paramjit Referring Unavailable Schwiger, Paramjit Attending Unavailable [place], Keagan Primary Care Unavailable Juan Grimm Attending Unavailable [place], Keagan Primary Care Unavailable Fady, Keagan Primary Care Unavailable Le, Best Referring Unavailable Terese Best Attending Unavailable Fady, Keagan Primary Care Unavailable Anirudh De Los Santos Attending Unavailable Shelby DISPLAY MAKER, Maciej Referring Unavailable Shelby DISPLAY MAKER, Maciej Attending Unavailable Fady, Keagan Primary Care Unavailable Fady, Keagan Primary Care Unavailable Anirudh De Los Santos Attending Unavailable Jaymie Montoya Attending Unavailable Fady, Keagan Referring Unavailable [place], Keagan Primary Care Unavailable Darshana Heart Attending Unavailable [place], Keagan Primary Care Unavailable Fady, Keagan Referring Unavailable Anirudh De Los Santos Attending Unavailable [place], Keagan Primary Care Unavailable LuHaliy Attending Unavailable Lu, Ana Consulting Unavailable Lu, Ana Referring Unavailable Fady, Keagan Primary Care Unavailable Fady, Keagan Primary Care Unavailable Anirudh De Los Santos Attending Unavailable Anirudh De Los Santos Referring Unavailable Amber Ram Attending Unavailable Ana Lu Attending Unavailable Lu, Ana Consulting Unavailable Lu, Ana Referring Unavailable [place], Keagan Primary Care Unavailable [place], Keagan Primary Care Unavailable Anirudh De Los Santos Attending Unavailable Anirudh De Los Santos Consulting Unavailable Anirudh De Los Santos Referring Unavailable [place], Keagan Referring Unavailable [place], Keagan Primary Care Unavailable Amber Ram Attending Unavailable Anirudh De Los Santos Attending Unavailable Anirudh De Los Santos Referring Unavailable Fady, Keagan Primary Care Unavailable Rafael Bear Attending Unavailable Fady, Keagan Referring Unavailable [place], Keagan Primary Care Unavailable LuCarolAna Attending Unavailable Lu, Ana Referring Unavailable [place], Keagan Primary Care Unavailable LuCarolAna Attending Unavailable Carol Lusay Attending Unavailable Lu, Ana Consulting Unavailable Lu, Ana Referring Unavailable Fady, Keagan Primary Care Unavailable Fady, Keagan Primary Care Unavailable Shelbi Dewitt Consulting Unavailabl e Shelbi Dewitt Referring Unavailabl e Shelbi Dewitt Attending Unavailabl e Fady, Keagan Referring Unavailable González Rutledge Attending Unavailable Fady, Keagan Primary Care Unavailable Fady, Keagan Referring Unavailable Nomi Duvall Attending Unavailable Fady, Keagan Primary Care Unavailable [place], Keagan Referring Unavailable Amber Ram Attending Unavailable Fady, Keagan Primary Care Unavailable Kayleen Helton Attending Unavailable [place], Keagan Referring Unavailable [place], Keagan Primary Care Unavailable [place], Keagan Referring Unavailable Kayleen Helton Attending Unavailable [place], Keagan Primary Care Unavailable Fady, Keagan Referring Unavailable DanieTrey Attending Unavailable Fady, Keagan Primary Care Unavailable Tiffanie Stevens Attending Unavailable [place], Keagan Referring Unavailable Fady, Keagan Primary Care Unavailable [place] Kayleen Referring Unavailable Fady, Keagan Primary Care Unavailable Darshana Heart Attending Unavailable Shelbi Dewitt Attending Unavailabl e [place], Keagan Primary Care Unavailable Vande Velde, Shelbi Referring Unavailabl e Vande Velde, Shelbi Attending Unavailabl e [place], Keagan Primary Care Unavailable Vandefren Vargas, Shelbi Referring Unavailabl e Ana Lu Attending Unavailable Lu, Ana Referring Unavailable [place], Keagan Primary Care Unavailable [place], Keagan Attending Unavailable Fady, Keagan Referring Unavailable Fady, Keagan Primary Care Unavailable [place], Keagan Referring Unavailable Fady, Keagan Attending Unavailable Fady, Keagan Primary Care Unavailable DanieKayleen Attending Unavailable Fady, Keagan Referring Unavailable [place], Keagan Primary Care Unavailable Fady, Keagan Primary Care Unavailable Anirudh De Los Santos Attending Unavailable Anirudh De Los Santos Referring Unavailable RENNYREGINA Attending Unavailable Fady, Keagan Primary Care Unavailable REGINA PEARSON Referring Unavailable González Rutledge Referring Unavailable González Rutledge Attending Unavailable [place], Keagan Primary Care Unavailable Best Gudino Attending Unavailable [place], Kaegan Primary Care Unavailable Piotr Tony Attending Unavailable Fady, Keagan Primary Care Unavailable Fady, Keagan Primary Care Unavailable Anirudh De Los Santos Attending Unavailable [place], Keagan Primary Care Unavailable Anirudh De Los Santos Attending Unavailable Shelbi Dewitt Attending Unavailabl e Fady, Keagan Primary Care Unavailable Amber Ram Referring Unavailable Vande Veladam Shelbi Admitting Unavailabl e Ana Lu Attending Unavailable Aly, Ana Referring Unavailable Fady, Keagan Primary Care Unavailable Best Gudino Attending Unavailable Fady, Keagan Primary Care Unavailable Allergies Allergy Classification Reported Allergen(s) Allergy Type Date of Onset Reaction(s) Facility Cetirizine (5 sources) Cetirizine Drug Allergy 10-04-19 Swelling [facility] Corticosteroids (1 source) predniSONE Drug Allergy 11-05-19 Other: See Comments [facility] Ethinyl Estradiol / Norethindrone (1 source) Ethinyl Estradiol / Norethindrone Drug Allergy 11-05-19 Other: See Comments [facility] (20 sources) Other Propensity to adverse reactions 03-20-19 Anaphylaxis [facility] Phone: (20 sources) Norgestimate-Eth Estradiol Propensity to adverse reactions to drug 10-02-19 Angioedema [place] (20 sources) Cetirizine; Translations: [CETIRIZINE] Drug Allergy 10-04-19 Swelling [facility] (20 sources) Ethinyl Estradiol / Norethindrone; Translations: [NORETHINDRONE AC-ETH ESTRADIOL] Drug Allergy 11-05-19 Other: See Comments [facility] (20 sources) predniSONE; Translations: [PREDNISONE] Drug Allergy 11-05-19 Other: See Comments, Anaphylaxis, Other (See Comments) [facility] Comment on above: Throat (20 sources) Norgestimate-Ethi nyl Estradiol; Translations: [NORGESTIMATE-ETH INYL ESTRADIOL] Drug Allergy 10-02-19 Angioedema [facility] (20 sources) Prednisone Allergy to substance 11-05-19 Other, Anaphylaxis [facility] (20 sources) Norethin Yaya-Eth Estrad-Fe; Translations: [NORETHIN YAYA-ETH ESTRAD-FE] Drug Allergy 11-05-19 Unknown, Other, Other (See Comments), Rash [facility] (20 sources) metFORMIN; Translations: [METFORMIN] Drug Allergy 09-11-19 Nausea And Vomiting [facility] (8 sources) CONTROLL; Translations: [ CONTROLL] Allergy to substance 12-04-19 [facility] (10 sources) Adhesive Tape; Translations: [adhesive tape] Allergy to substance 12-26-19 [facility] (12 sources) Latex; Translations: [LATEX] Allergy to substance 12-18-19 [facility] Comment on above: hands (20 sources) Latex Allergy to substance 12-18-19 Swelling [facility] (6 sources) WOUND DRESSING ADHESIVE; Translations: [WOUND DRESSING ADHESIVE] Propensity to adverse reactions to drug (disorder) 02-19-20 Hives, Rash, Shortness of breath [facility] (1 source) Cetirizine Drug Allergy 11-23-19 [facility] (1 source) Latex Drug allergy (disorder) 11-23-19 [facility] (1 source) predniSONE Drug Allergy 11-23-19 [facility] NEGATED: Highlighted row has been ruled out!Unclassified (8 sources) Other Propensity to adverse reactions 03-20-19 Anaphylaxis, Swelling, Rash [facility] Medications Current Medications Medication Drug Class(es) Dates Sig (Normalized) Sig (Original) [id number] 200 actuat albuterol 0.09 mg/actuat metered dose inhaler (20 sources) beta2-Adrenergic Agonist Start: 02-07-2024 Albuterol Sulfate 90 mcg/actuation HFA aerosol inhaler Active 2 NMA INHALATION Q4H as needed for wheezing 8.5 February 07, 2024 3:39pm Start: 02-02-2023 take 2 puff(s) by in halation every six hours as needed albuterol HFA (PROVENTIL HFA, VENTOLIN HFA) 90 mcg/actuation inhaler Inhale 2 Puffs as instructed every 6 hours as needed. 02/02/2023 Active Start: 12-03-2022 End: 02-07-2024 Albuterol Sulfate 90 mcg/act uation HFA aerosol inhaler Discontinued 2 NMA INHALATION EVERY 6 HOURS as needed for wheezing December 03, 2022 12:00am February 07, 2024 3:39pm Start: 12-03-2022 End: 02-07-2024 Start: 12-03-2022 take 1 puff(s) by in halation every six hours Albuterol Sulfate Active 2 PUFF INHALATION EVERY 6 HOURS December 03, 2022 12:00am Start: 02-13-2022 End: 02-02-2023 take 2 puff(s) by inhalation every six hours as needed for wheezing albuterol 108 (90 Base) MCG/ACT inhaler Indications: Medication refill Inhale 2 puffs every 6 hours as needed for wheezing or shortness of breath. 18 g 3 02/02/2023 Active Start: 09-05-2020 albuterol (PRO VENTIL) nebulizer solution 2.5 mg Start: 08-09-2020 take 2 puff(s) by in halation four times daily as needed for wheezing albuterol sulfate HFA 108 (90 Base) MCG/ACT inhaler Inhale 2 puffs into the lungs 4 times daily as needed for Wheezing or Shortness of Breath 1 Inhaler 0 08/09/2020 Active Start: 08-09-2020 Albuterol Sulf ate HFA 108 (90 Base) MCG/ACT Inhalation Aerosol Solution Quantity: 7 Refills: 0 Ordered: 09-Aug-2020 DO Start : 09-Aug-2020 Complete Start: 01-29-2020 take 2 puff(s) by in halation four times daily as needed for wheezing albuterol sulfate HFA 108 (90 Base) MCG/ACT inhaler Inhale 2 puffs into the lungs 4 times daily as needed for Wheezing or Shortness of Breath 1 Inhaler 0 01/29/2020 Active albuterol sulfate HFA 108 (90 Base) MCG/ACT inhaler (2 sources) Start: 01-29-2020 take 2 puff(s) by inhalation four times daily as needed for wheezing albuterol sulfate HFA 108 (90 Base) MCG/ACT inhaler Inhale 2 puffs into the lungs 4 times daily as needed for Wheezing or Shortness of Breath 1 Inhaler 0 01/29/2020 Active Start: 01-29-2020 End: 02-08-2020 take 2 puff(s) by inhalation four times daily as needed for wheezing albuterol sulfate HFA 108 (90 Base) MCG/ACT inhaler Inhale 2 puffs into the lungs 4 times daily as needed for Wheezing or Shortness of Breath 1 Inhaler 0 01/29/2020 02/08/2020 Active amoxicillin 500 mg oral capsule (2 sources) Penicillin-class Antibacterial Start: 08-21-2021 End: 08-31-2021 take 1 capsule by mouth every eight hours amoxicillin (POLYMOX, AMOXIL) 500 mg capsule Indications: Acute cystitis without hematuria Take 1 capsule by mouth every 8 hours for 10 days. 30 capsule 0 08/21/2021 08/31/2021 Active Start: 03-20-2019 End: 03-30-2019 take 1 capsule by mouth twice daily amoxicillin (AMOXIL) 500 MG capsule Take 1 capsule by mouth 2 times daily for 10 days 20 capsule 0 03/20/2019 03/30/2019 Active Comment on above: Take [address] [facility] every 8 hours for 10 days. amoxicillin 875 mg / clavulanate 125 mg oral tablet (6 sources) Penicillin-class Antibacterial Start: 12-23-2022 End: 12-30-2022 take 1 tablet by mouth twice daily amoxicillin-cla vulanic acid (AUGMENTIN) 875-125 mg per tablet Indications: URI, acute Take 1 tablet by mouth two times a day for 7 days. 14 tablet 0 12/23/2022 12/30/2022 Active Start: 10-30-2022 End: 11-06-2022 take 1 tablet by mouth every twelve hours amoxicillin-clavulanate (Augmentin) 875-125 MG tablet Take 1 tablet by mouth in the morning and 1 tablet in the evening. Do all this for 7 days. 14 tablet 0 10/30/2022 11/06/2022 Active Start: 12-27-2020 Amoxicillin-Po t Clavulanate 875-125 MG Oral Tablet Quantity: 14 Refills: 0 Ordered: 27-Dec-2020 DO Start : 27-Dec-2020 Complete Start: 07-16-2020 End: 07-16-2020 amoxicillin-clavulanate (AUG MENTIN) 875-125 MG per tablet 1 tablet Start: 07-16-2020 End: 07-26-2020 take 1 tablet by mouth twice daily amoxicillin-clavulanate (AUGMENTIN) 875-125 MG per tablet Take 1 tablet by mouth 2 times daily for 10 days 20 tablet 0 07/16/2020 07/26/2020 Active Comment on above: Take 1 tablet by [facility] two times a day for 7 days. azelastine hydrochloride 0.137 mg/actuat metered dose nasal spray (9 sources) Histamine-1 Receptor Antagonist Start: 12-17-19 take 1 spray(s) nasal route twice daily azelastine 0.1% nasal spray Indications: Seasonal allergic rhinitis due to other allergic trigger Use 1 [place] in each nostril two times a day. 30 mL 1 12/16/2022 Active Comment on above: Use 1 [place] in each nostril two times a day. Blood Glucose Monitoring Suppl (ONE TOUCH ULTRA MINI) w/Device KIT (2 sources) Start: 10-21-19 24 Blood Glucose Monitoring Suppl (ONE TOUCH ULTRA MINI) w/Device KIT Use as directed. 1 Kit 1 10/21/2023 Active Blood Glucose Monitoring Suppl (True Metrix Meter) w/Device kit (13 sources) Start: 10-21-19 24 Blood Glucose Monitoring Suppl (True Metrix Meter) w/Device kit As directed 10/21/2023 Active cephalexin 500 mg oral capsule (20 sources) Cephalosporin Antibacterial Start: 07-17-19 End: 07-20-19 take 1 capsule by mouth four times daily cephalexin (Keflex) 500 MG capsule Take 1 capsule (500 mg) by mouth 4 times daily for 3 days. 12 capsule 07/16/2024 07/19/2024 Active Start: 07-16-2024 End: 07-16-2024 take 500 mg by mouth once 500 mg, Oral, Once, On Sun at 1320, For 1 dose, Suspected Indication (Select all that apply): Urinary Tract Infection Start: 02-22-2024 End: 02-23-2024 take 1 capsule by mouth every twelve hours Cephalexin 500 mg capsule Discontinued 500 mg PO EVERY 12 HOURS February 22, 2024 1:00am February 23, 2024 12:04pm Start: 01-20-2024 End: 03-02-2024 take 1 capsule by mouth four times daily Cephalexin 500 mg capsule Discontinued 500 mg PO 4 TIMES DAILY February 24, 2024 1:00am March 02, 2024 11:10pm Start: 01-20-2024 End: 02-23-2024 take 1 capsule by mouth every six hours Cephalexin 500 mg capsule Discontinued 500 mg PO EVERY 6 HOURS 02 10January 20, 2024 1:00am February 23, 2024 12:04pm Start: 10-28-2023 End: 11-17-2023 take 1 capsule by mouth twice daily Cephalexin 500 mg capsule Discontinued 500 mg PO TWICE A DAY 10 October 28, 2023 12:00am November 17, 2023 3:41pm Start: 10-28-2023 End: 11-17-2023 Start: 12-03-2022 End: 12-17-2022 Cephalexin 500 mg capsule Discontinued mg December 03, 2022 12:00am December 17, 2022 2:21pm Start: 12-03-2022 End: 12-17-2022 Cephalexin Discontinued MG S eptember 2022 12:00am December 17, 2022 2:21pm Start: 11-25-2022 End: 12-23-2022 take 1 capsule by mouth every twelve hours cephALEXin (KEFLEX) 500 mg capsule Take 1 capsule by mouth every 12 (twelve) hours. 0 11/25/2022 12/23/2022 Discontinued Start: 08-01-2020 Cephalexin 500 MG Oral Capsule Quantity: 14 Refills: 0 Ordered: 01-Aug-2020 DO Start : 01-Aug-2020 Complete Start: 11-27-2019 End: 12-04-2019 take 1 capsule by mouth four times daily cephALEXin (KEFLEX) 500 MG capsule Take 1 capsule by mouth 4 times daily for 7 days 28 capsule 0 11/27/2019 12/04/2019 Active Comment on above: Take 1 capsule by [facility] every 12 (twelve) hours. cholecalciferol 0.05 mg oral tablet (6 sources) Vitamin D Start: take 1 tablet by mouth once daily cholecalciferol (Vitamin D-3) 50 MCG (1999 UT) tablet Take 2,000 Units by mouth daily. 05/02/2024 Active clindamycin 20 mg/ml vaginal cream (1 source) Lincosamide Antibacterial Start: End: clindamycin phosphate (CLEOCIN) 2 % vaginal cream Indications: Vaginal discharge Use 1 Applicatorful vaginally daily at bedtime for 3 days. 40 g 0 10/03/2020 10/06/2020 Active Comment on above: Use 1 Applicatorful vaginally daily at bedtime for 3 days. Continuous Glucose Transfer Man (DEXCOM G7 SITE DIRECTOR) PARAM (2 sources) Start: Continuous Glucose Transfer Man (DEXCOM G7 SITE DIRECTOR) PARAM 1 Each by Does not apply route daily 1 Each 11/10/2023 Active Continuous Glucose Sensor (DEXCOM G7 SENSOR) MISC (2 sources) Start: End: Continuous Glucose Sensor (DEXCOM G7 SENSOR) MISC 1 Each by Does not apply route every 10 days for 162 days 3 Each 5 11/10/2023 04/20/2024 Active Continuous Glucose Sensor (FreeStyle Shobha 3 Plus Sensor) misc (2 sources) Start: Continuous Glucose Sensor (FreeStyle Shobha 3 Plus Sensor) misc Indications: Type 2 diabetes mellitus with hyperglycemia, with long-term current use of insulin (HCC) 1 each daily. Change sensor every 15 days 6 each 3 11/14/2024 Active doxycycline hyclate 100 mg oral tablet (2 sources) Tetracycline-class Drug Start: End: take 1 tablet by mouth twice daily doxycycline hyclate (VIBRA-TABS) 100 MG tablet Take 1 tablet by mouth 2 times daily for 7 days 14 tablet 0 11/05/2021 11/12/2021 Active Start: 11-05-2021 End: 11-05-2021 doxycycline monohydrate (MON ODOX) capsule 100 mg Dulaglutide (TRULICITY) 3 MG/0.5ML SOPN (1 source) Start: 05-23-2021 Dulaglutide (TRULICITY) 3 MG/0.5ML SOPN Indications: Type 2 diabetes mellitus with hyperglycemia, without long-term current use of insulin (HCC) Inject 3 mg into the skin once a week 4 pen 3 05/23/2021 Active Flash Glucose Sensor (Freestyle Shobha 2 Sensor) kit (2 sources) Start: 09-28-2023 Flash Glucose Sensor (Freestyle Shobha 2 Sensor) kit Active 0 .Route September 28, 2023 12:00am As directed fluticasone propionate 0.05 mg/actuat metered dose nasal spray (20 sources) Corticosteroid Start: 01-12-2024 take 2 spray(s) by mouth once daily fluticasone (FLONASE) 50 mcg/actuation nasal spray Use 2 Sprays in each nostril once daily. Rinse mouth after use. 1 Each 01/12/2024 Active Start: 10-21-2023 End: 01-19-2024 take 1 puff(s) by inhalation twice daily fluticasone HFA 44 mcg inhaler Inhale 1 Puff into the lungs 2 times daily for 90 days 1 Each 1 10/21/2023 01/19/2024 Active Start: 12-17-2022 take 1 spray(s) nasa l route once daily Fluticasone Propionate Active 1 SPRAY INTRANASAL DAILY December 17, 2022 12:00am administer into each nostril Start: 12-16-2022 take 2 spray(s) by m out twice daily fluticasone (FLONASE) 50 mcg/actuation nasal spray Indications: Seasonal allergic rhinitis due to other allergic trigger Use 2 Sprays in each nostril two times a day. Rinse mouth after use. 1 Each 1 12/16/2022 Active Start: 12-16-2022 fluticasone (F LONASE) 50 MCG/ACT nasal spray 2 Sprays by Does not apply route 2 times daily 12/16/2022 Active Start: 02-13-2022 End: 06-09-2022 fluticasone (Flonase) 50 MCG /ACT nasal spray Indications: Medication refill SHAKE LIQUID AND USE 1 SPRAY IN EACH NOSTRIL DAILY Strength: 50 MCG/ACT 16 g 3 02/13/2022 06/09/2022 Discontinued (Therapy completed) Start: 07-18-2021 take 1 spray(s) nasa l route once daily fluticasone (FLONASE) 50 MCG/ACT nasal spray SHAKE LIQUID AND USE 1 SPRAY IN EACH NOSTRIL DAILY 16 g 5 07/18/2021 Active Start: 05-01-2020 fluticasone (F LONASE) 50 MCG/ACT nasal spray 1 spray by Nasal route daily 1 Bottle 5 05/01/2020 Active Comment on above: Use 2 Sprays in each nostril two times a day. Rinse mouth after use. Fluticasone Propionate 44 mcg/actuation HFA aerosol inhaler (4 sources) Start: 02-08-2024 Fluticasone Propionate 44 mcg/actuation HFA aerosol inhaler Active 2 NMA INHALATION TWICE A DAY 10.6 February 08, 2024 1:00am administer with spacer Start: 12-03-2023 End: 03-02-2024 Fluticasone Propionate 44 mc g/actuation HFA aerosol inhaler Discontinued INHALATION December 03, 2023 12:00am March 02, 2024 11:11pm FREESTYLE SHOBHA 2 SENSOR kit (10 sources) Start: 12-03-2022 FREESTYLE LIBR E 2 SENSOR kit 12/03/2022 Active Start: 12-03-2022 FREESTYLE LIBR E 2 SENSOR kit 0.2 ml glucagon 5 mg/ml auto-injector (13 sources) Antihypoglycemic Agent Start: 04-04-2024 inject 0.2 mL by subcutaneous injection once as needed glucagon (Gvoke HypoPen 2-Pack) 1 MG/0.2ML injection Indications: Type 2 diabetes mellitus with hyperglycemia, with long-term current use of insulin ([facility]) Inject 0.2 mL (1 mg) under the skin Once as needed for low blood sugar. 2 each 3 04/04/2024 Active Glucose (13 sources) Start: 04-04-2024 End: 04-04-2025 glucose 4 g chewable tablet Indications: Type 2 diabetes mellitus with hyperglycemia, with long-term current use of insulin ([facility]) Chew 4 tablets (16 g) Daily as needed for low blood sugar. 50 tablet 3 04/04/2024 04/04/2025 Active glucose monitoring (FREESTYLE FREEDOM) kit (5 sources) Start: 12-17-2020 glucose monitoring (FREESTYLE FREEDOM) kit Type II DM, E11.9, Glucometer as allowed by insurance,Test once a day. 1 kit 0 12/17/2020 Active glucose monitoring kit (FREESTYLE) monitoring kit (9 sources) Start: 05-01-2020 glucose monitoring kit (FREESTYLE) monitoring kit Indications: Type 2 diabetes mellitus with hyperglycemia, without long-term current use of insulin ([facility]) Type II DM, E11.9, Glucometer as allowed by insurance,Test once a day. 1 kit 0 05/01/2020 Active hydrocortisone 10 mg/ml / neomycin 3.5 mg/ml / polymyxin b 49918 unt/ml otic solution (1 source) Aminoglycoside Antibacterial, Polymyxin-class Antibacterial, Corticosteroid Start: 03-20-2019 End: 03-27-2019 neomycin-polymyxi n-hydrocortisone (CORTISPORIN) 3.5-35241-[address] 3 drops into the right ear 3 times daily for 7 days Instill into right Ear 1 each 0 03/20/2019 03/27/2019 Active 3 ml insulin glargine 100 unt/ml pen injector (20 sources) Insulin Analog Start: 04-26-2024 Insulin Glargine (Lantus Solostar U-100 Insulin) 100 unit/mL (3 mL) insulin pen Active 10 U SC EVERY MORNING April 26, 2024 1:00am Start: 04-04-2024 End: 04-04-2025 inject 10 [IU] by subcutaneous injection once daily in the morning Lantus SoloStar 100 UNIT/ML pen Indications: Type 2 diabetes mellitus with hyperglycemia, with long-term current use of insulin (HCC) Inject 10 Units under the skin every morning. 9 mL 3 04/04/2024 04/04/2025 Active Start: 12-15-2023 End: 02-28-2024 Insulin Glargine (Lantus Shalini ostar U-100 Insulin) 100 unit/mL (3 mL) insulin pen Discontinued 42 U SC AT BEDTIME December 15, 2023 1:41pm February 28, 2024 3:31pm Start: 11-26-2023 End: 12-15-2023 Insulin Glargine (Lantus Shalini ostar U-100 Insulin) 100 unit/mL (3 mL) insulin pen Discontinued 35 U SC AT BEDTIME November 26, 2023 3:39pm December 15, 2023 1:41pm Start: 11-26-2023 End: 11-26-2023 Insulin Glargine (Lantus Shalini ostar U-100 Insulin) 100 unit/mL (3 mL) insulin pen Discontinued 35 U SC EVERY EVENING November 26, 2023 3:35pm November 26, 2023 3:40pm Start: 11-23-2023 End: 04-04-2024 Lantus SoloStar 100 UNIT/ML pen 11 Units 2 times daily. Inject 37 before bedtime 11/23/2023 04/04/2024 Discontinued (Reorder) Start: 11-17-2023 End: 11-26-2023 Insulin Glargine (Lantus Shalini ostar U-100 Insulin) 100 unit/mL (3 mL) insulin pen Discontinued 40 U SC EVERY EVENING November 17, 2023 3:41pm November 26, 2023 3:38pm Start: 09-28-2023 End: 11-17-2023 Insulin Glargine (Lantus Shalini ostar U-100 Insulin) 100 unit/mL (3 mL) insulin pen Discontinued 14 U SC EVERY EVENING September 28, 2023 9:07am November 17, 2023 3:42pm Start: 09-15-2023 insulin glargi ne (LANTUS) 100 UNIT/ML SOLN injection Pt taking 20 units at bedtime. 09/15/2023 Active Start: 08-18-2023 End: 09-28-2023 Insulin Glargine (Lantus Shalini ostar U-100 Insulin) 100 unit/mL (3 mL) insulin pen Discontinued 10 U SC EVERY EVENING August 18, 2023 12:00am September 28, 2023 9:09am Start: 08-18-2023 End: 02-28-2024 3 ml insulin lispro 100 unt/ml pen injector (20 sources) Insulin Analog Start: 11-14-2024 End: 11-14-2025 inject 8 [IU] by subcutaneous injection once daily before breakfast, then inject 6 [IU] by subcutaneous injection once daily before lunch, then inject 8 [IU] by subcutaneous injection once daily before dinner insulin lispro (HumaLOG) 100 UNIT/ML pen injection Indications: Type 2 diabetes mellitus with hyperglycemia, with long-term current use of insulin (HCC) Inject 8 Units under the skin every morning (before breakfast) AND 6 Units daily (before lunch) AND 8 Units daily (before dinner). 19.8 mL 3 11/14/2024 11/14/2025 Active Start: 04-26-2024 Insulin Lispro (Humalog Kwikpen Insulin) 100 unit/mL insulin pen Active 8 U SC THREE TIMES A DAY April 26, 2024 1:00am Start: 03-31-2024 End: 04-26-2024 Insulin Lispro (Humalog Kwik pen Insulin) 100 unit/mL Insulin Pen Discontinued 10 U SC WITH BREAKFAST March 31, 2024 1:00am April 26, 2024 10:13am Start: 03-31-2024 End: 04-26-2024 Insulin Lispro (Humalog Kwik pen Insulin) 100 unit/mL Insulin Pen Discontinued 17 U SC WITH DINNER March 31, 2024 1:00am April 26, 2024 10:13am Start: 03-31-2024 End: 04-26-2024 Insulin Lispro (Humalog Kwik pen Insulin) 100 unit/mL Insulin Pen Discontinued 11 U SC WITH LUNCH March 31, 2024 1:00am April 26, 2024 10:13am Start: 03-16-2024 End: 04-26-2024 Insulin Lispro (Humalog Kwik pen Insulin) 100 unit/mL insulin pen Discontinued 40 U SC WITH BREAKFAST March 16, 2024 1:00am April 26, 2024 10:13am Start: 03-16-2024 End: 04-26-2024 Insulin Lispro (Humalog Kwik pen Insulin) 100 unit/mL insulin pen Discontinued 44 U SC WITH LUNCH March 16, 2024 1:00am April 26, 2024 10:13am Start: 03-16-2024 End: 04-26-2024 Insulin Lispro (Humalog Kwik pen Insulin) 100 unit/mL insulin pen Discontinued 70 U SC WITH DINNER March 16, 2024 1:00am April 26, 2024 10:12am Start: 11-10-2023 End: 04-04-2025 inject 8 [IU] by subcutaneous injection three times daily at mealtime insulin lispro (HumaLOG) 100 UNIT/ML pen injection Indications: Type 2 diabetes mellitus with hyperglycemia, with long-term current use of insulin (HCC) Inject 8 Units under the skin 3 times daily (with meals). 21.6 mL 3 04/04/2024 11/14/2024 Discontinued (Reorder) Start: 11-10-2023 End: 04-20-2024 Insulin Lispro, 1 Unit Dial, (HUMALOG) 100 UNIT/ML SOPN Inject 0.15-0.3 mL (15-30 Units) into the skin 3 times daily (before meals) for 162 days 27 mL 5 11/10/2023 04/20/2024 Active metFORMIN hydrochloride 500 mg oral tablet (20 sources) Biguanide Start: 04-26-2024 take 1 tablet by mouth twice daily Metformin 500 mg tablet Active 500 mg PO TWICE A DAY April 26, 2024 1:00am Start: 02-24-2024 End: 04-04-2025 take 1 tablet by mouth twice daily metFORMIN XR (Glucophage-XR) 500 MG 24 hr tablet Indications: Type 2 diabetes mellitus with hyperglycemia, with long-term current use of insulin (HCC) Take 1 tablet (500 mg) by mouth 2 times daily. Do not crush, chew, or split. 180 tablet 3 04/04/2024 04/04/2025 Active Start: 02-24-2024 End: 04-26-2024 take 1 tablet by mouth every twenty-four hours at bedtime Metformin 500 mg Tablet Extended Release 24 Hr Discontinued 500 mg PO AT BEDTIME 90 March 31, 2024 1:00am April 26, 2024 10:14am Start: 02-13-2022 End: 09-10-2022 take 1 tablet by mouth in the morning metFORMIN (Glucophage) 1000 MG tablet Indications: Medication refill Take 1 tablet (1,000 mg) by mouth in the morning and 1 tablet (1,000 mg) before bedtime. 180 tablet 3 02/13/2022 09/10/2022 Discontinued (Other) Start: 09-18-2021 take 1 tablet by ama th twice daily at mealtime metFORMIN (GLUCOPHAGE) 1000 MG tablet Indications: Type 2 diabetes mellitus with hyperglycemia, without long-term current use of insulin ([facility]) TAKE 1 TABLET BY MOUTH TWICE DAILY WITH MEALS 180 tablet 2 09/18/2021 Active Start: 02-19-2021 take 1 tablet by ama th twice daily at mealtime metFORMIN (GLUCOPHAGE) 1000 MG tablet Indications: Type 2 diabetes mellitus with hyperglycemia, without long-term current use of insulin ([facility]) TAKE 1 TABLET BY MOUTH TWICE DAILY WITH MEALS 60 tablet 5 02/19/2021 Active Start: 10-30-2020 take 1 tablet by ama th twice daily at mealtime metFORMIN (GLUCOPHAGE) 1000 MG tablet Indications: Type 2 diabetes mellitus with hyperglycemia, without long-term current use of insulin ([facility]) TAKE 1 TABLET BY MOUTH TWICE DAILY WITH MEALS 60 tablet 5 10/30/2020 Active Start: 10-08-2020 take 1 tablet by ama th twice daily at mealtime metFORMIN (GLUCOPHAGE) 1000 MG tablet Indications: Type 2 diabetes mellitus with hyperglycemia, without long-term current use of insulin ([facility]) TAKE 1 TABLET BY MOUTH TWICE DAILY WITH MEALS 60 tablet 5 10/08/2020 Active Start: 05-01-2020 take 1 tablet by ama th twice daily at mealtime metFORMIN (GLUCOPHAGE) 1000 MG tablet Indications: Type 2 diabetes mellitus with hyperglycemia, without long-term current use of insulin ([facility]) Take 1 tablet by mouth 2 times daily (with meals) 60 tablet 3 05/01/2020 Active take 500 mg by mouth twice daily metformin HCl (METFORMIN ORAL) Take 500 mg by mouth twice daily. Active metFORMIN HCl TA BS Quantity: 0 Refills: 0 Ordered: 29-Jun-2020 DO Active Comment on above: Take 500 mg by mouth twice daily. methocarbamol 750 mg oral tablet (2 sources) Muscle Relaxant Start: 2019 End: 2019 take 1 tablet by mouth four times daily methocarbamol (ROBAXIN-750) 750 MG tablet Take 1 tablet by mouth 4 times daily for 3 days 12 tablet 0 09/18/2019 09/22/2019 Active methylPREDNISolone 4 mg oral tablet (3 sources) Corticosteroid methylPREDNISolo ne (MEDROL DOSEPACK) 4 MG tablet Take 4 mg by mouth See Admin Instructions Take by mouth. 0 Active metroNIDAZOLE 500 mg oral tablet (2 sources) Nitroimidazole Antimicrobial Start: 2022 End: 2022 take 1 tablet by mouth twice daily metroNIDAZOLE (FLAGYL) 500 mg tablet Take 1 tablet by mouth two times a day for 7 days. 14 tablet 0 01/08/2023 01/15/2023 Active Start: 02-16-2022 End: 02-23-2022 metroNIDAZOLE (Metrogel) 0.7 5 % vaginal gel Indications: Bacterial vaginosis Insert 1 applicator into the vagina nightly for 5 nights. 70 g 2 02/16/2022 02/23/2022 Comment on above: Take 1 tablet by ama th two times a day for 7 days. NIFEdipine 30 mg osmotic 24 hr extended release oral tablet (18 sources) Dihydropyridine Calcium Channel Ronda Start: 5 End: 5 take 1 tablet by mouth once daily Nifedipine 30 mg tablet extended release 24hr Active 30 mg PO DAILY June 26, 2024 2:17pm take 1 tablet by ama th once daily before breakfast, then take 1 tablet by mouth every twenty-four hours NIFEdipine CC (Adalat CC) 30 MG 24 hr tablet Take 30 mg by mouth every morning (before breakfast). Do not crush, chew, or split. Active norethindrone 0.35 mg oral tablet (9 sources) Start: 05-07-2024 take 1 tablet by mouth once daily Norethindrone (Contraceptive) (Nadja) 0.35 mg tablet Active 0.35 mg PO daily May 07, 2024 1:00am start day 1 of menstrual cycle Start: 05-07-2024 phenazopyridine hydrochloride 200 mg delayed release oral tablet (6 sources) Start: 08-29-2022 End: 08-31-2022 take 1 tablet by mouth three times daily phenazopyridine (Pyridium) 200 MG tablet Take 1 tablet (200 mg) by mouth 3 times daily for 2 days. 6 tablet 0 08/29/2022 08/31/2022 Active Start: 05-31-2020 Phenazopyridin e HCl - 200 MG Oral Tablet Quantity: 6 Refills: 0 Ordered: 31-May-2020 DO Start : 31-May-2020 Complete Pqziolgy-Gbh-Yu-FA (PRE- FORMULA PO) (2 sources) Start: 08-16-2023 take 1 tablet by mouth once daily Vcdrkawp-Hga-Bf-FA (PRE- FORMULA PO) Take 1 Tablet by mouth daily 08/16/2023 Active no.144-folic acid 400 mcg chew (6 sources) Start: 08-16-2023 take 1 tablet by mouth once daily no.144-folic acid 400 mcg chew Take 1 tablet by mouth once daily. 90 tablet 08/16/2023 Active Start: 08-16-2023 take 1 tablet by ama th once daily no.144-folic acid 400 mcg chew Take 1 tablet by mouth once daily. 90 tablet 0 08/16/2023 Active Vit-Fe Fumarate-FA ( VITAMIN PO) (7 sources) Vit-Fe Fumarate-FA ( VITAMIN PO) Take by mouth 0 Active sertraline 50 mg oral tablet (7 sources) Serotonin Reuptake Inhibitor Start: 07-11-2024 take 1 tablet by mouth once daily Sertraline (Zoloft) 50 mg tablet Active 50 mg PO DAILY July 11, 2024 12:00am sodium chloride 0.111 meq/ml nasal spray (11 sources) Start: 12-16-2022 sodium chloride (SALINE MIST) 0.65 % nasal spray Indications: Seasonal allergic rhinitis due to other allergic trigger Use 2 Sprays in the nose two times a day as needed. 88 mL 5 12/16/2022 Active Start: 08-29-2022 End: 08-29-2022 sodium chloride 0.9 % bolus 1,000 mL Comment on above: Use 2 Sprays in the nose two times a day as needed. Spacer/Aero-Holding Chambers (VALVED HOLDING CHAMBER) PARAM (1 source) Start: 10-07-2021 Spacer/Aero-Holding Chambers (VALVED HOLDING CHAMBER) PARAM USE WITH INHALATION MEDICATION DIRECTED 1 each 0 10/07/2021 Active Spacer/Aero-Holding Chambers PARAM (3 sources) Start: 04-09-2021 Spacer/Aero-Holding Chambers PARAM 1 Device by Does not apply route daily 1 each 0 04/09/2021 Active TRULICITY 3 MG/0.5ML SOPN (1 source) Start: 09-03-2021 TRULICITY 3 MG/0.5ML SOPN Indications: Type 2 diabetes mellitus with hyperglycemia, without long-term current use of insulin (HCC) INJECT 3 MG INTO THE SKIN ONCE A WEEK 2 mL 3 09/03/2021 Active Completed/Discontinued Medications Medication Drug Class(es) Dates Sig (Normalized) Sig (Original) acetaminophen 500 mg oral tablet (3 sources) Start: 12-27-2019 End: 12-27-2019 acetaminophen (TYLENOL) tablet 1,000 mg Acetaminophen (T YLENOL PO) Take by mouth Prn for headaches Active acetaminophen 325 mg / HYDROcodone bitartrate 5 mg oral tablet (12 sources) Opioid Agonist Start: 12-04-2022 End: 05-31-2023 Hydrocodone-Acetaminophen 5- 325 mg tablet Discontinued 1 {tbl} PO EVERY 6 HOURS NEEDED as needed for Pain 02 07December 04, 2022 May 31, 2023 1:51pm Start: 12-04-2022 End: 05-31-2023 Start: 12-04-2022 End: 05-31-2023 take 1 tablet by mouth every six hours as needed Hydrocodone-Acetaminophen Discontinued 1 TABLET PO EVERY 6 HOURS NEEDED 12 December 04, 2022 May 31, 2023 1:51pm Start: 09-17-2019 End: 09-18-2019 HYDROcodone-acetaminophen (N ORCO) 5-325 MG per tablet 1 tablet aluminum chloride 200 mg/ml topical solution (20 sources) Start: 02-13-2022 End: 02-26-2023 aluminum chloride (Drysol) 2 0 % external solution Indications: Medication refill 1 application at bedtime Strength: 20 % 60 mL 3 02/13/2022 02/26/2023 Discontinued (Therapy completed) Start: 12-16-2020 Drysol 20 % Ex ternal Solution Quantity: 60 Refills: 0 Ordered: 16-Dec-2020 DO Start : 16-Dec-2020 Complete Start: 07-09-2020 DRYSOL 20 % ex ternal solution aspirin 81 mg delayed release oral tablet (14 sources) Platelet Aggregation Inhibitor, Nonsteroidal Anti-inflammatory Drug Start: 10-21-2023 End: 04-04-2024 take 1 tablet by mouth once daily Aspirin 81 mg tablet,delayed release (DR/EC) Discontinued 81 mg PO DAILY November 25, 2023 12:00am March 31, 2024 9:05am benzonatate 200 mg oral capsule (20 sources) Non-narcotic Antitussive Start: 12-04-2022 End: 05-31-2023 take 1 capsule by mouth three times daily as needed for cough Benzonatate 200 mg capsule Discontinued 200 mg PO THREE TIMES A DAY as needed for cough December 17, 2022 2:22pm May 31, 2023 1:51pm Start: 11-15-2020 Benzonatate 10 0 MG Oral Capsule Quantity: 30 Refills: 0 Ordered: 15-Nov-2020 DO Start : 15-Nov-2020 Complete Blood Glucose Monitoring Sup pl device (19 sources) Start: 06-14-2022 End: 02-26-2023 [address] device Use to check blood sugars 1x/daily E11.65 1 Units 0 06/14/2022 02/26/2023 Discontinued (Duplicate order) Start: 06-14-2022 Blood Glucose Monitoring Suppl device Use to check blood sugars 1x/daily E11.65 1 Units 0 06/14/2022 Active End: 06-12-[address] device cetirizine hydrochloride 10 mg oral tablet (1 source) Histamine-1 Receptor Antagonist Start: 12-27-2019 End: 12-27-2019 cetirizine (ZYRTEC) tablet 10 mg Start: 12-27-2019 End: 12-27-2019 cetirizine (ZYRTEC) tablet 1 0 mg citalopram 40 mg oral tablet (5 sources) Serotonin Reuptake Inhibitor Start: 05-30-2024 End: 07-11-2024 take 1 tablet by mouth once daily Citalopram 40 mg tablet Discontinued 40 mg PO DAILY May 30, 2024 12:00am July 11, 2024 8:50am Start: 05-03-2024 End: 05-30-2024 take 1 tablet by mouth once daily Citalopram 20 mg tablet Discontinued 20 mg PO DAILY May 03, 2024 1:00am May 30, 2024 11:47am Continuous Blood Gluc Receiv er (FreeStyle Shobha 2 [place]) device (20 sources) Start: 09-17-2022 End: 12-02-2023 Continuous Blood Gluc Receiv er (FreeStyle Shobha 2 [place]) device Indications: Diabetes mellitus type 2 without retinopathy (CMS/HCC) (HCC) 1 Units 4 times daily (before meals and nightly). 1 each 09/17/2022 12/02/2023 Discontinued (Med list cleanup) Start: 09-17-2022 Continuous Blo od Gluc Transfer Man (FreeStyle Shobha 2 [place]) device Indications: Diabetes mellitus type 2 without retinopathy (CMS/HCC) (HCC) 1 Units 4 times daily (before meals and nightly). 1 each 09/17/2022 Active Start: 09-17-2022 Continuous Blo od Gluc Transfer Man (FreeStyle Shobha 2 [place]) device Indications: Diabetes mellitus type 2 without retinopathy (CMS/HCC) (HCC) 1 Units 4 times daily (before meals and nightly). 1 each 0 09/17/2022 Active Start: 09-17-2022 End: 09-17-2022 Continuous Blood Gluc Receiv er (FreeStyle Shobha 2 [place]) device Indications: Diabetes mellitus type 2 without retinopathy (CMS/HCC) (HCC) 1 Units 4 times daily (before meals and nightly). 1 each 0 09/17/2022 09/17/2022 Discontinued (Reorder) Continuous Blood Gluc Sensor (FreeStyle Shobha 2 Sensor) misc (20 sources) Start: 04-26-2023 End: 12-02-2023 Continuous Blood Gluc Sensor (FreeStyle Shobha 2 Sensor) misc Change sensor every two weeks to monitor blood sugars 2 each 04/26/2023 12/02/2023 Discontinued (Med list cleanup) Start: 04-26-2023 Continuous Blo od Gluc Sensor (FreeStyle Shobha 2 Sensor) misc Change sensor every two weeks to monitor blood sugars 2 each 04/26/2023 Active Start: 12-10-2022 End: 04-26-2023 Continuous Blood Gluc Sensor (FreeStyle Shobha 2 Sensor) misc Change sensor every two weeks to monitor blood sugars 2 each 11 12/10/2022 04/26/2023 Discontinued (Reorder) Start: 12-10-2022 Continuous Blo od Gluc Sensor (FreeStyle Shobha 2 Sensor) misc Change sensor every two weeks to monitor blood sugars 2 each 11 12/10/2022 Active Start: 12-03-2022 End: 12-10-2022 Continuous Blood Gluc Sensor (FreeStyle Shobha 2 Sensor) misc Start: 09-17-2022 End: 10-01-2022 Continuous Blood Gluc Sensor (FreeStyle Shobha 2 Sensor) mis Indications: Diabetes mellitus type 2 without retinopathy (CMS/HCC) (HCC) 1 Units continuous for 14 days. 2 each 09/17/2022 10/01/2022 Active Start: 09-17-2022 End: 09-17-2022 Continuous Blood Gluc Sensor (FreeStyle Shobha 2 Sensor) misc Indications: Diabetes mellitus type 2 without retinopathy (CMS/HCC) (HCC) 1 Units continuous for 14 days. 2 each 09/17/2022 09/17/2022 Discontinued (Reorder) Continuous Blood Gluc Sensor (FreeStyle Shobha 3 Sensor) misc (4 sources) Start: 09-10-2022 End: 09-17-2022 Continuous Blood Gluc Sensor (FreeStyle Shobha 3 Sensor) mis Indications: Type 2 diabetes mellitus without complication, without long-term current use of insulin (CMS/HCC) (HCC) 3 times daily. 2 each 09/10/2022 09/17/2022 Discontinued Start: 09-10-2022 Continuous Blo od Gluc Sensor (FreeStyle Shobha 3 Sensor) mis Indications: Type 2 diabetes mellitus without complication, without long-term current use of insulin (CMS/HCC) (HCC) 3 times daily. 2 each 09/10/2022 Active Continuous Glucose Transfer Man (Dexcom G7 Transfer Man) device (12 sources) Start: 10-30-2024 End: 11-14-2024 Continuous Glucose Transfer Man (Dexcom G7 Transfer Man) device Indications: Type 2 diabetes mellitus with hyperglycemia, with long-term current use of insulin (HCC) 1 each daily. 1 each 10/30/2024 11/14/2024 Discontinued (Alternate therapy) Start: 11-15-2023 Continuous Glu cose Transfer Man (Dexcom G7 Transfer Man) device 11/15/2023 Active cyclobenzaprine hydrochloride 10 mg oral tablet (19 sources) Muscle Relaxant Start: 03-06-2024 End: 03-06-2024 take 5 mg by mouth once 5 mg, Oral, Once, On Wed03/06/24 at 1930, For 1 dose Start: 03-06-2024 End: 03-06-2024 take 5 mg by mouth once 5 mg, Oral, Once, On Wed at 1930, For 1 dose Start: 09-20-2023 End: 12-03-2023 take 1 tablet by mouth three times daily as needed for muscle spasms Cyclobenzaprine 10 mg tablet Discontinued 10 mg PO THREE TIMES A DAY as needed for Muscle Spasm September 20, 2023 12:00am December 03, 2023 5:17pm Start: 07-18-2021 take 1 tablet by ama th three times daily as needed for muscle spasms cyclobenzaprine (FLEXERIL) 10 MG tablet TAKE 1 TABLET BY MOUTH THREE TIMES DAILY NEEDED FOR MUSCLE SPASMS 30 tablet 3 07/18/2021 Active Start: 04-18-2021 End: 04-28-2021 take 1 tablet by mouth three times daily as needed for muscle spasms cyclobenzaprine (FLEXERIL) 10 MG tablet Indications: Upper back pain , Acute bilateral low back pain without sciatica Take 1 tablet by mouth 3 times daily as needed for Muscle spasms 30 tablet 0 04/18/2021 04/28/2021 Active Start: 10-05-2019 End: 11-24-2019 take 1 tablet by mouth three times daily as needed for muscle spasms cyclobenzaprine (FLEXERIL) 10 MG tablet TAKE 1 TABLET BY MOUTH 3 TIMES DAILY NEEDED FOR MUSCLE SPASMS (SPASMS) 90 tablet 0 11/24/2019 Active dexamethasone 4 mg oral tablet (3 sources) Corticosteroid Start: 01-29-2024 End: 02-23-2024 take 1 tablet by mouth once Dexamethasone 4 mg tablet Discontinued 4 mg PO ONE TIME 1 January 29, 2024 1:00am February 23, 2024 12:04pm Repeat dose 02/01/2024 if needed Start: 01-29-2024 End: 02-23-2024 diphenhydrAMINE hydrochloride 25 mg oral tablet (3 sources) Histamine-1 Receptor Antagonist Start: 04-29-2020 End: 05-02-2020 diphenhydrAMINE (BENADRYL) tablet 25 mg Start: 12-27-2019 End: 01-26-2020 take 1 tablet by mouth every six hours as needed diphenhydrAMINE (BENADRYL ALLERGY) 25 MG tablet Take 1 tablet by mouth every 6 hours as needed for Itching or Allergies 28 tablet 0 12/27/2019 01/26/2020 Active 0.5 ml dulaglutide 3 mg/ml auto-injector (20 sources) GLP-1 Receptor Agonist Start: 07-23-2023 End: 08-19-2023 Dulaglutide 1.5 mg/0.5 mL pen injector Discontinued 3 mg SC EVERY WEEK 2 July 23, 2023 12:00am August 19, 2023 8:09am Start: 07-23-2023 End: 08-19-2023 Start: 07-22-2023 End: 08-19-2023 Dulaglutide (Trulicity) 3 mg /0.5 mL pen injector Discontinued 3 mg SC .weekly July 22, 2023 2:20pm August 19, 2023 8:09am Start: 07-22-2023 End: 08-19-2023 Start: 12-03-2022 End: 07-22-2023 Dulaglutide (Trulicity) 3 mg /0.5 mL pen injector Discontinued 3 mg SC .weekly December 03, 2022 12:00am July 22, 2023 2:20pm Start: 12-03-2022 End: 07-22-2023 Start: 12-03-2022 Dulaglutide (D ulaglutide 3 Mg/0.5 Ml Subcutaneous Pen Injector) 3 mg/0.5 mL pen injector Active 3 MG SC .weekly December 02, 2022 11:00pm Start: 12-03-2022 Dulaglutide (D ulaglutide 3 Mg/0.5 Ml Subcutaneous Pen Injector) 3 mg/0.5 mL pen injector Active 3 MG SC .weekly December 03, 2022 12:00am Start: 03-13-2022 End: 06-09-2022 inject 1.5 mg by subcutaneous injection every week dulaglutide (Trulicity) 1.5 MG/0.5ML solution pen-injector Indications: Type 2 diabetes mellitus without complication, without long-term current use of insulin (CMS/HCC) (HCC) Inject 1.5 mg under the skin 1 (one) time per week. 4 pen 11 03/13/2022 06/09/2022 Discontinued (Dose adjustment) Start: 05-08-2021 inject 1.5 mg by sub cutaneous injection every week TRULICITY 1.5 MG/0.5ML SOPN Indications: Type 2 diabetes mellitus with hyperglycemia, without long-term current use of insulin ([facility]) ADMINISTER 1.5 MG UNDER THE SKIN 1 TIME A WEEK 2 mL 3 05/08/2021 Active Start: 09-02-2020 inject 3 mg by subcu taneous injection every week TRULICITY 1.5 mg/0.5 mL pen injector Inject 3 mg subcutaneously one time a week. 09/02/2020 Active Start: 09-02-2020 Dulaglutide (T RULICITY) 1.5 MG/0.5ML SOPN Indications: Type 2 diabetes mellitus with hyperglycemia, without long-term current use of insulin ([facility]) Inject 1.5 mg into the skin once a week 4 pen 3 12/12/2020 Active Start: 07-30-2020 Trulicity 0.75 MG/0.5ML Subcutaneous Solution Pen-injector Quantity: 2 Refills: 0 Ordered: 31-Aug-2020 DO Start : 30-Jul-2020 Complete Start: 07-30-2020 Dulaglutide (T RULICITY) 0.75 MG/0.5ML SOPN Indications: Type 2 diabetes mellitus with hyperglycemia, without long-term current use of insulin ([facility]) Inject 0.75 mg into the skin once a week 4 pen 5 07/30/2020 Active Comment on above: Inject 1.5 mg subcut aneously one time a week. Inject 3 mg subcutan eously one time a week. dulaglutide (Trulicity) 3 MG/0.5ML solution pen-injector (20 sources) Start: End: inject 3 mg by subcutaneous injection every week dulaglutide (Trulicity) 3 MG/0.5ML solution pen-injector Indications: Type 2 diabetes mellitus with hyperglycemia, without long-term current use of insulin (HCC) Inject 3 mg under the skin 1 (one) time per week. 4 each 3 04/07/2023 12/02/2023 Discontinued (Med list cleanup) Start: 04-07-2023 inject 3 mg by subcu taneous injection every week dulaglutide (Trulicity) 3 MG/0.5ML solution pen-injector Indications: Type 2 diabetes mellitus with hyperglycemia, without long-term current use of insulin (HCC) Inject 3 mg under the skin 1 (one) time per week. 4 each 3 04/07/2023 Active Start: 12-10-2022 End: 04-05-2023 inject 3 mg by subcutaneous injection every week dulaglutide (Trulicity) 3 MG/0.5ML solution pen-injector Indications: Type 2 diabetes mellitus with hyperglycemia, without long-term current use of insulin (HCC) Inject 3 mg under the skin 1 (one) time per week. 4 each 3 12/10/2022 04/05/2023 Discontinued (Reorder) Start: 12-10-2022 inject 3 mg by subcu taneous injection every week dulaglutide (Trulicity) 3 MG/0.5ML solution pen-injector Indications: Type 2 diabetes mellitus with hyperglycemia, without long-term current use of insulin (HCC) Inject 3 mg under the skin 1 (one) time per week. 4 each 3 12/10/2022 Active Start: 06-09-2022 End: 12-10-2022 inject 3 mg by subcutaneous injection every week dulaglutide (Trulicity) 3 MG/0.5ML solution pen-injector Indications: Type 2 diabetes mellitus with hyperglycemia, without long-term current use of insulin (HCC) Inject 3 mg under the skin 1 (one) time per week. 4 each 3 06/09/2022 12/10/2022 Discontinued (Reorder) Start: 06-09-2022 inject 3 mg by subcu taneous injection every week dulaglutide (Trulicity) 3 MG/0.5ML solution pen-injector Indications: Type 2 diabetes mellitus with hyperglycemia, without long-term current use of insulin (HCC) Inject 3 mg under the skin 1 (one) time per week. 4 each 3 06/09/2022 Active Start: 06-09-2022 inject 3 mg by subcu taneous injection every week dulaglutide (Trulicity) 3 MG/0.5ML solution pen-injector Indications: Type 2 diabetes mellitus with hyperglycemia, without long-term current use of insulin ([facility]/HCC) (HCC) Inject 3 mg under the skin 1 (one) time per week. 4 each 3 06/09/2022 Active Start: 02-13-2022 End: 02-27-2022 inject 3 mg by subcutaneous injection every week dulaglutide (Trulicity) 3 MG/0.5ML solution pen-injector Indications: Medication refill Inject 3 mg under the skin 1 (one) time per week. 4 each 3 02/13/2022 02/27/2022 Discontinued empagliflozin 10 mg oral tablet (20 sources) Sodium-Glucose Cotransporter 2 Inhibitor Start: 11-18-2022 End: 05-31-2023 take 1 tablet by mouth once daily Empagliflozin (Empagliflozin 10 Mg Tablet) 10 mg tablet Discontinued 10 mg PO DAILY December 03, 2022 12:00am May 31, 2023 1:51pm Comment on above: Take 1 tablet by ama th every afternoon. Norgestimate-Ethiny l Estradiol (3 sources) Progestin, Estrogen Start: 05-03-2024 End: 05-07-2024 Norgestimate-Ethiny l Estradiol (Sprintec (28)) 0.25-35 mg-mcg tablet Discontinued 1 {tbl} PO daily May 03, 2024 1:00am May 07, 2024 5:44pm Start: 05-03-2024 End: 05-07-2024 famotidine 20 mg oral tablet (8 sources) Histamine-2 Receptor Antagonist Start: 03-09-2024 End: 04-26-2024 take 1 tablet by mouth twice daily Famotidine (Acid Controller) 20 mg tablet Discontinued 20 mg PO TWICE A DAY March 09, 2024 1:00am April 26, 2024 10:14am Start: 10-28-2023 End: 03-02-2024 take 1 tablet by mouth twice daily Famotidine (Pepcid) 20 mg tablet Discontinued 20 mg PO TWICE A DAY October 28, 2023 12:00am March 02, 2024 11:10pm fluconazole 100 mg oral tablet (6 sources) Azole Antifungal Start: 12-06-2023 End: 12-15-2023 take 1 tablet by mouth once daily Fluconazole 100 mg tablet Discontinued 100 mg PO daily December 06, 2023 12:00am December 15, 2023 1:28pm Start: 08-20-2021 End: 08-20-2021 take 1 tablet by mouth once fluconazole (DIFLUCAN) 150 mg tablet Indications: Yeast vaginitis Take 1 tablet by mouth one time only for 1 dose. 1 tablet 0 08/20/2021 08/20/2021 Active Start: 06-29-2020 Fluconazole 15 0 MG Oral Tablet TAKE 1 TABLET ONCE. JULY REPEAT IN 2 DAYS.. Quantity: 2 Refills: 0 Ordered: 29-Jun-2020 Ana Paula Bates PA-C Start : 29-Jun-2020 Active Comment on above: Take 1 tablet by [facility] one time only for 1 dose. FLUoxetine 40 mg oral capsule (19 sources) Serotonin Reuptake Inhibitor Start: 03-13-2020 FLUoxetine HCl - 40 MG Oral Capsule Quantity: 30 Refills: 0 Ordered: 09-Jul-2020 DO Start : 13-Mar-2020 Complete End: 10-15-2020 take 1 capsule by mouth once daily FLUoxetine (PROZAC) 20 mg capsule Take 20 mg by mouth once daily. 0 10/15/2020 Discontinued Comment on above: Take 20 mg by mouth once daily. Glucose Blood (GLUCOSE METER TEST ) (1 source) End: 3 Glucose Blood (GLUCOSE METER TEST ) by In Vitro route. 0 06/12/2022 Discontinued (Entered in error) glycopyrrolate 2 mg oral tablet (20 sources) Start: End: 5 take 1 tablet by mouth once daily Glycopyrrolate 2 mg tablet Discontinued 2 mg PO DAILY March 02, 2024 1:48pm June 14, 2024 2:55pm Start: 08-12-2020 take [address] [facility] twice daily glycopyrrolate (ROBINUL) 1 mg tablet Take 2 mg by mouth twice daily. 08/12/2020 Active Start: 08-12-2020 Glycopyrrolate 1 MG Oral Tablet Quantity: 30 Refills: 0 Ordered: 12-Aug-2020 DO Start : 12-Aug-2020 Complete Comment on above: Take 1 mg by mouth t wice daily. Take 2 mg by mouth t wice daily. ibuprofen 600 mg oral tablet (13 sources) Nonsteroidal Anti-inflammatory Drug Start: 08-29-2022 End: 08-29-2022 ibuprofen tablet 600 mg Start: 07-16-2020 take 1 tablet by ama th four times daily as needed for pain ibuprofen (ADVIL;MOTRIN) 600 MG tablet Take 1 tablet by mouth 4 times daily as needed for Pain 40 tablet 0 07/16/2020 Active Start: 07-16-2020 Ibuprofen 600 MG Oral Tablet Quantity: 40 Refills: 0 Ordered: 17-Jul-2020 DO Start : 16-Jul-2020 Complete Start: 12-18-2018 End: 12-18-2018 ibuprofen (ADVIL;MOTRIN) tab let 600 mg Insulin Glargine (Lantus U-1 00 Insulin) 100 unit/mL solution (4 sources) Start: 03-16-2024 End: 04-26-2024 Insulin Glargine (Lantus U-1 00 Insulin) 100 unit/mL solution Discontinued 46 U SC .Q AM March 16, 2024 1:00am April 26, 2024 10:12am Start: 03-16-2024 End: 04-26-2024 Insulin Glargine (Lantus U-1 00 Insulin) 100 unit/mL solution Discontinued 46 U SC EVERY EVENING March 16, 2024 1:00am April 26, 2024 10:12am Insulin Glargine-Yfgn 100 unit/mL (3 mL) Insulin Pen (4 sources) Start: 03-31-2024 End: 04-26-2024 Insulin Glargine-Yfgn 100 unit/mL (3 mL) Insulin Pen Discontinued 11 U SC 1000 15 March 31, 2024 1:00am April 26, 2024 10:12am Start: 03-31-2024 End: 04-26-2024 Insulin Glargine-Yfgn 100 un it/mL (3 mL) Insulin Pen Discontinued 11 U SC EVERY EVENING March 31, 2024 1:00am April 26, 2024 10:12am 3 ml insulin, regular, human 100 unt/ml pen injector (12 sources) Insulin Start: 12-15-2023 End: 02-24-2024 Insulin Regular Human 100 unit/mL (3 mL) insulin pen Discontinued 1 U SC THREE TIMES A DAY December 15, 2023 1:41pm February 24, 2024 3:56am 22 units in am, 22 units lunch, 26 units pm Start: 11-26-2023 End: 12-15-2023 Insulin Regular Human 100 un it/mL (3 mL) insulin pen Discontinued 1 U SC THREE TIMES A DAY November 26, 2023 3:36pm December 15, 2023 1:41pm 24 units in am, 22 units lunch, 22 units pm Start: 11-17-2023 End: 11-26-2023 Insulin Regular Human 100 un it/mL (3 mL) insulin pen Discontinued 15 U SC THREE TIMES A DAY November 17, 2023 3:41pm November 26, 2023 3:38pm 24 units in am, 22 units lunch, 22 units pm Start: 10-14-2023 End: 11-17-2023 Insulin Regular Human 100 un it/mL (3 mL) insulin pen Discontinued 15 U SC THREE TIMES A DAY October 14, 2023 12:00am November 17, 2023 3:42pm Start: 10-14-2023 End: 02-24-2024 isopropyl alcohol 0.7 ml/ml medicated pad (18 sources) Start: 12-03-2023 End: 03-02-2024 Alcohol Swabs pads, medicate d Discontinued NMA TOPICAL December 03, 2023 12:00am March 02, 2024 11:10pm Start: 10-21-2023 Alcohol Swabs pads Use to cleanse skin prior to insulin injection or checking blood sugar 10/21/2023 Active 1 ml ketorolac tromethamine 30 mg/ml cartridge (1 source) Nonsteroidal Anti-inflammatory Drug, Cyclooxygenase Inhibitor Start: 10-30-2022 End: 10-30-2022 ketorolac (Toradol) injection 30 mg lansoprazole 15 mg delayed release oral capsule (20 sources) Proton Pump Inhibitor Start: 03-31-2024 End: 04-26-2024 take 2 capsules by mouth once daily Lansoprazole 15 mg Capsule,Delayed Release(Dr/Ec) Discontinued 30 mg PO DAILY March 31, 2024 1:00am April 26, 2024 10:13am Start: 02-23-2024 take 1 tablet by ama th once daily Lansoprazole 30 mg capsule,delayed release(DR/EC) Active 30 mg PO DAILY February 23, 2024 4:38pm Take one tablet by mouth daily Start: 08-16-2023 End: 02-23-2024 take 1 tablet by mouth once daily Lansoprazole 15 mg capsule,delayed release(DR/EC) Discontinued 15 mg PO DAILY October 11, 2023 8:53am February 23, 2024 4:38pm Take one tablet by mouth daily Start: 12-17-2022 End: 02-05-2023 take 1 capsule by mouth once daily Lansoprazole 15 mg capsule,delayed release(DR/EC) Discontinued 15 mg PO DAILY December 17, 2022 12:00am February 05, 2023 3:15pm lidocaine 0.04 mg/mg medicated patch (12 sources) Antiarrhythmic, Amide Local Anesthetic Start: 03-06-2024 End: 03-06-2024 apply 1 dose transdermal route once daily, then apply 1 dose transdermal route every twelve hours 1 patch, TransDERmal, Administer over 12 Hours, Daily, First dose on Wed03/06/24 at 1915, Apply patch to painful area. Patch may remain in place for up to 12 hours in any 24 hour period. Start: 12-16-2022 LIDOCAINE VISC OUS 2 % solution Indications: Pharyngitis, unspecified etiology Take 15 mL by mouth three times a day as needed. 100 mL 12/16/2022 Active Start: 11-05-2021 End: 11-05-2021 lidocaine PF 1 % injection 1 0 mL Comment on above: Take 15 mL by mouth three times a day as needed. magnesium oxide 400 mg oral tablet (20 sources) Start: 2023 End: 2024 take 1 tablet by mouth once daily Magnesium Oxide 400 mg (241.3 mg magnesium) tablet Discontinued 400 mg PO DAILY November 25, 2023 12:00am April 26, 2024 10:13am Methacholine (1 source) Cholinergic Receptor Agonist Start: 2020 End: 2020 methacholine (PROVOCHOLINE) inhaler solution 100 mg methylPREDNISolone 4 MG Oral Tablet Therapy Pack (2 sources) Start: 2020 methylPREDNISolone 4 MG Oral Tablet Therapy Pack take 1 tab as directed Quantity: 1 Refills: 0 Ordered: 15-Jan-2021 Myah Mccoy PA-C Start : 15-Jan-2021 Active metoclopramide 10 mg oral tablet (10 sources) Dopamine-2 Receptor Antagonist Start: 2022 End: 2022 take 1 tablet by mouth four times daily as needed for nausea and vomiting Metoclopramide Hcl (Reglan) 10 mg tablet Discontinued 10 mg PO 4 TIMES DAILY NEEDED as needed for nausea and vomiting December 04, 2022 12:02am December 17, 2022 2:22pm Misc Natural Products (BLOOD SUGAR BALANCE PO) (5 sources) End: 2022 Misc Natural Products (BLOOD SUGAR BALANCE PO) Misc Natural Pro ducts (BLOOD SUGAR BALANCE PO) mupirocin 0.02 mg/mg topical ointment (20 sources) RNA Synthetase Inhibitor Antibacterial Start: 04-29-2022 End: 02-26-2023 mupirocin (Bactroban) 2 % ointment Apply topically 2 times daily. 22 g 2 04/29/2022 02/26/2023 Discontinued (Therapy completed) Start: 11-13-2021 End: 04-29-2022 mupirocin (BACTROBAN) 2 % oi ntment Use 2 g in the nose. 11/13/2021 Active Comment on above: Use 2 g in the nose. naproxen 500 mg oral tablet (19 sources) Nonsteroidal Anti-inflammatory Drug Start: 02-13-2022 End: 02-28-2022 take 1 tablet by mouth in the morning naproxen (Naprosyn) 500 MG tablet Indications: Pectoralis muscle strain, subsequent encounter Take 1 tablet (500 mg) by mouth in the morning and 1 tablet (500 mg) in the evening. Take with meals. Do all this for 15 days. 30 tablet 0 02/13/2022 02/28/2022 Start: 08-18-2021 take 1 tablet by ama twice daily at mealtime naproxen (NAPROSYN) 250 MG tablet Indications: Upper back pain , Acute bilateral low back pain without sciatica TAKE 1 TABLET BY MOUTH TWICE DAILY WITH MEALS 60 tablet 1 08/18/2021 Active Start: 04-21-2021 take 1 tablet by ama th twice daily at mealtime naproxen (NAPROSYN) 250 MG tablet Indications: Upper back pain , Acute bilateral low back pain without sciatica Take 1 tablet by mouth 2 times daily (with meals) 60 tablet 0 04/21/2021 Active Start: 04-18-2021 take 1 tablet by ama th twice daily at mealtime naproxen (NAPROSYN) 250 MG tablet Indications: Upper back pain , Acute bilateral low back pain without sciatica Take 1 tablet by mouth 2 times daily (with meals) 60 tablet 0 04/18/2021 Active Start: 12-18-2018 End: 09-25-2019 take 1 tablet by mouth three times daily at mealtime naproxen (NAPROSYN) 250 MG tablet Take 1 tablet by mouth 3 times daily (with meals) for 7 days 21 tablet 0 09/18/2019 Active Comment on above: Take 500 mg by mouth twice daily with meals. nitrofurantoin, macrocrystals 25 mg / nitrofurantoin, monohydrate 75 mg oral capsule (7 sources) Nitrofuran Antibacterial Start: End: take 1 capsule by mouth every twelve hours at mealtime Nitrofurantoin Monohyd/M-Cryst (Macrobid) 100 mg capsule Discontinued 100 mg PO Q12H 14 March 10, 2024 1:00am March 16, 2024 1:00am March 17, 2024 1:11am must administer with a meal/food Start: 12-03-2023 End: 12-10-2023 take 1 capsule by mouth every twelve hours at mealtime Nitrofurantoin Monohyd/M-Cryst (Macrobid) 100 mg capsule Discontinued 100 mg PO Q12H 14 December 03, 2023 12:00am December 09, 2023 12:00am December 10, 2023 12:07am must administer with a meal/food Start: 01-07-2023 End: 01-12-2023 take 1 capsule by mouth twice daily nitrofurantoin monohydrate and macrocrystal (MACROBID) 100 mg capsule Indications: Dysuria Take 1 capsule by mouth two times a day for 5 days. 10 capsule 0 01/07/2023 01/12/2023 Active Comment on above: Take 1 capsule by [facility] two times a day for 5 days. Nutritional Supplements (ESTRO SUPPORT ES PO) (5 sources) End: 06-09-2022 Nutritional Supplements (ESTRO SUPPORT ES PO) Nutritional Supp lements (ESTRO SUPPORT ES PO) omeprazole 20 mg delayed release oral capsule (20 sources) Proton Pump Inhibitor Start: 02-05-2023 End: 12-02-2023 take 1 capsule by mouth once daily Omeprazole 20 mg capsule,delayed release(DR/EC) Discontinued 20 mg PO DAILY August 10, 2023 7:51am August 16, 2023 8:25am Start: 10-30-2020 take 1 capsule by [facility] twice daily before mealtime omeprazole (PRILOSEC) 20 MG delayed release capsule Indications: Gastroesophageal reflux disease without esophagitis Take 1 capsule by mouth 2 times daily (before meals) 60 capsule 5 10/30/2020 Active Start: 10-30-2020 Omeprazole 20 MG Oral Capsule Delayed Release Quantity: 60 Refills: 0 Ordered: 08-Jan-2021 DO Start : 30-Oct-2020 Complete Start: 05-30-2020 take 1 capsule by [facility] once daily before breakfast omeprazole (PRILOSEC) 20 MG delayed release capsule Take 1 capsule by mouth every morning (before breakfast) 30 capsule 5 05/30/2020 Active ondansetron 4 mg disintegrating oral tablet (20 sources) Serotonin-3 Receptor Antagonist Start: 01-29-2024 End: 03-02-2024 take 1 tablet by mouth every eight hours as needed for nausea Ondansetron 4 mg tablet,disintegrating Discontinued 4 mg PO EVERY 8 HOURS NEEDED as needed for Nausea January 29, 2024 1:00am March 02, 2024 11:11pm Start: 01-20-2024 End: 03-02-2024 take 1 tablet by mouth every six hours as needed for nausea and vomiting Ondansetron 4 mg tablet,disintegrating Discontinued 4 mg PO EVERY 6 HOURS as needed for nausea and vomiting January 20, 2024 1:00am March 02, 2024 11:11pm Start: 07-31-2020 End: 03-02-2024 take 1 tablet by mouth three times daily as needed for nausea and vomiting Ondansetron 4 mg tablet,disintegrating Active 4 mg PO THREE TIMES A DAY as needed for nausea and vomiting December 26, 2022 12:00am Start: 07-31-2020 Ondansetron 4 MG Oral Tablet Disintegrating Quantity: 10 Refills: 0 Ordered: 31-Jul-2020 DO Start : 31-Jul-2020 Complete pantoprazole 40 mg delayed release oral tablet (20 sources) Proton Pump Inhibitor Start: 11-10-2022 End: 03-03-2023 take 1 tablet by mouth once daily Pantoprazole 40 mg tablet,delayed release (DR/EC) Discontinued 40 mg PO DAILY December 17, 2022 12:00am February 05, 2023 3:15pm Start: 02-13-2022 take 1 tablet by ama th once daily before breakfast pantoprazole (ProtoNix) 40 MG EC tablet Indications: Medication refill TAKE 1 TABLET BY MOUTH EVERY MORNING BEFORE BREAKFAST Strength: 40 mg 90 tablet 1 02/13/2022 Active Start: 05-12-2021 take 1 tablet by ama th at bedtime pantoprazole (PROTONIX) 40 MG tablet Indications: Gastroesophageal reflux disease without esophagitis Take 1 tablet by mouth in the morning and at bedtime 60 tablet 5 05/12/2021 Active Start: 02-19-2021 take 1 tablet by ama th once daily before breakfast pantoprazole (PROTONIX) 40 MG tablet Indications: Gastroesophageal reflux disease without esophagitis Take 1 tablet by mouth every morning (before breakfast) 30 tablet 5 02/19/2021 Active take 1 tablet by ama th twice daily pantoprazole DR (PROTONIX) 40 mg tablet Take 40 mg by mouth twice daily. 0 Active Comment on above: Take 40 mg by mouth twice daily. penicillin v potassium 500 mg oral tablet (4 sources) Start: 06-26-2023 End: 07-06-2023 take 1 tablet by mouth four times daily Penicillin V Potassium 500 mg tablet Discontinued 500 mg PO 4 TIMES DAILY June 26, 2023 12:00am July 06, 2023 3:14pm [facility] No.[id number] -Fish 400 mcg-35 mg- 25 mg-5 mg tablet,chewable (4 sources) Start: 11-09-2023 End: 07-26-2024 Pnv No.[id number]- Fish 400 mcg-35 mg- 25 mg-5 mg tablet,chewable Discontinued 1 {tbl} PO DAILY 90 90 November 09, 2023 8:09am July 26, 2024 7:51am Start: 09-28-2023 End: 11-09-2023 Pnv No.[id number] sh 400 mcg-35 mg- 25 mg-5 mg tablet,chewable Discontinued {tbl} PO September 28, 2023 12:00am November 09, 2023 8:10am predniSONE 20 mg oral tablet (2 sources) Start: 04-29-2020 End: 04-29-2020 predniSONE (DELTASONE) table t 50 mg Start: 04-29-2020 End: 05-04-2020 take 1 tablet by mouth twice daily predniSONE (DELTASONE) 20 MG tablet Take 1 tablet by mouth 2 times daily for 5 days 10 tablet 0 04/29/2020 05/04/2020 Active TABS (2 sources) TABS Qu antity: 0 Refills: 0 Ordered: 29-Jun-2020 DO Active VIT W/ FE BISG-FA P O (16 sources) End: 06-09-2024 VIT W/ FE BISG-FA P O Take by mouth. 06/09/2024 Discontinued (Med list cleanup) VIT W/ FE BISG-FA PO Take by mouth. Active promethazine hydrochloride 25 mg oral tablet (3 sources) Phenothiazine Start: 12-15-2023 End: 03-02-2024 take 1 tablet by mouth three times daily as needed for headache Promethazine 25 mg tablet Discontinued 25 mg PO THREE TIMES A DAY as needed for headache 60 December 15, 2023 12:00am March 02, 2024 11:11pm SITagliptin 100 mg oral tablet (5 sources) Dipeptidyl Peptidase 4 Inhibitor Start: 01-22-2023 End: 01-22-2024 take 1 tablet by mouth once daily SITagliptin (Januvia) 100 MG tablet Take 1 tablet (100 mg) by mouth daily. 30 tablet 3 01/22/2023 04/07/2023 Discontinued (Therapy completed) sulfamethoxazole 800 mg / trimethoprim 160 mg oral tablet (9 sources) Dihydrofolate Reductase Inhibitor Antibacterial, Sulfonamide Antimicrobial Start: 08-29-2022 End: 08-29-2022 sulfamethoxazole- trimethoprim (Bactrim DS) 800-160 MG per tablet 1 tablet Start: 08-29-2022 End: 09-10-2022 take 1 tablet by mouth twice daily sulfamethoxazole-trimethoprim (Bactrim D S) 800-160 MG tablet Take 1 tablet by mouth 2 times daily for 10 days. 20 tablet 0 08/29/2022 09/10/2022 Discontinued (Therapy completed) Start: 05-28-2020 Sulfamethoxazo le-Trimethoprim 800-160 MG Oral Tablet Quantity: 10 Refills: 0 Ordered: 28-May-2020 DO Start : 28-May-2020 Complete SUMAtriptan 50 mg oral table t (20 sources) Serotonin-1b and Serotonin-1d Receptor Agonist Start: 12-17-2022 End: 03-02-2024 Start: 12-17-2022 Sumatriptan Andino ccinate Active MG PO December 17,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 with serious comorbidity and body mass index (BMI) of 40.0 to 44.9 in adult, unspecified obesity type 3. Type 2 diabetes mellitus with hyperlipidemia (HCC) (HCC) 4. Therapeutic drug monitoring Lab Results Component Value Date HGBA1C 7.4 (A) 11/14/2024 HGBA1C 6.2 (A) 06/09/2024 Lab Results Component Value Date EGFR 102 06/09/2024 TSH 2.32 06/09/2024 CHOLESTEROLT 165 06/09/2024 TRIG 134 11/08/2021 HDLCHOLESTER 45 (L) 06/09/2024 LDLCHOLESTER 101 (H) 06/09/2024 MICROALBCREA see below 11/08/2021 ALBUMINCREAT 3 06/09/2024 DM2 Diabetes is: worsening however GMI 6.7% Glycemic Target: less than 7% Recommendations: Dexcom G7/reciever/MSC Continue Lantus 10 units QAM Continue Humalog 8 before BF and dinner and decrease to 6 units before lunch Continue Metformin XR 500 mg bid denies SE *Taper off insulin as able -Hypo: Glucagon --Gvoke -Meter/Supplies: [employer] has supplies --> BG monitoring: DL 2-3 weeks; sooner if issues. --> Msg to staff to call/send home upload of notch grinder info *BC prior to GLP restart and gallbladder disease resolution Education: - Discussed A1C and BG goals - Encouraged lifestyle modifications of diet and exercise - Encouraged optimal foot care- follow with podiatry if needed - Encouraged following with ophthalmology - Patient counseled on the importance of taking medication as prescribed - Patient counseled on the effects of uncontrolled DM on other organ systems - Patient counseled on risk factors assoicated with diabetes - Patient counseled on detection and treatment of hypoglycemia - Patient instructed to call office if BG >250 or <70 consistently Obesity Body mass index is 44.76 kg/m?. Wt Readings from Last 3 Encounters: 11/14/24 277 lb 4.8 oz (126 kg) 07/16/24 275 lb (125 kg) 06/09/24 271 lb 12.8 oz (123 kg) --> Continue to work on lifestyle changes: dietary habits; increasing activity as able, weight reduction --> Optimize DM agents to aid w/ the same such as GLP once GB disease improved HLP --LDL elevated 101 no current statin --taking OCP --Low CVD risk will continue to monitor [x] Records from outside facility/PCP office to be requested. JORDY [x] Scripts sent to pharmacy of choice. Follow up in about 3 months (around 02/13/2025). Diagnostic Data Reviewed Today: CGM AGP Reviewed: Yes Subjective HPI PCP: Keagan Shrestha MD Since AYDEN: 06/09/24 Having skin irritation with Dexcom wants to go back Shobha 3 plus has alec Plan for mark in a few weeks CPAP regularly-- Stress housing, vehicles etc-- Taking OCP 03/28/2024 Delivery; baby girl; ~36 weeks. Health baby. Not - formula exclusively Wt Readings from Last 4 Encounters: 11/14/24 277 lb 4.8 oz (126 kg) 07/16/24 275 lb (125 kg) 06/09/24 271 lb 12.8 oz (123 kg) 04/04/24 272 lb 3.2 oz (123 kg) Medication Cost Concerns: Denies Missed Medication Doses: Denies- only low if not eating Medication Side Effect: Denies Recent Steroid use: Denies Recent Weight Changes: Endorses Exercise Patterns: Gym, ADLs Dietary Patterns: 3x most days. Higher CHO choices Noted diet review from AYDEN: Bf saus, egg, toast make into sandwich Lunch works at [employer]-- Dinner protein, veg, starch Snack cheese stick, fruit Drink decaf coffee with SF creamer, water, diet pop Employment/Lifestyle Patterns/Schedule Alterations: Delivered health baby girl 03/28/2024 History of Type 2 Diabetes Age at Onset: 17 yo Circumstances surrounding dx: syncope at school--ED BG 500 Previous hospitalizations for DM: Denies Family hx DM: Endorses-Mother (DM2) Family hx thyroid disease/thyroid cancer: Denies *02/2024 cpeptide 4.52 w/ glucose 136 *02/2024 DAVID negative Current Medication Regimen: Lantus 10 units Humalog Metformin XR 500mg BID Previously Used DM Agents: Metformin: Gi upset Jardiance: recurrent UTI Trulicity: DC re: status Injection Sites/Rotation: rotates; arms only OTC Supplement Usage: Endorses-Vit D supp Glucose Monitoring CGM use: Yes-Dexcom G7 w/ notch grinder BG Monitoring: truemetrix Recent (more content not included)... Normal [facility] Surgery Visit Reporton 10-18 Surgery Visit Report Normal [facility] MR/BMS.BPon 10-11-2024 MR/BMS.BP Normal [facility] Admitting Coordinator Office Visit Reporton 09-27-2024 Admitting Coordinator Office Visit Report Normal [facility] Internal Medicine Office Vis iton 09-21-2024 Internal Medicine Office Visit Normal [facility] 36on 08-30-2024 36 Pt CPAP Machine was prescribed by Maciej Jaime MD, And DME order was fax to [facility]. [address] [place] [address] PHONE ~ [phone] FAX~ [phone] Please relay this message, if they call back again. Pt also No longer under our prescriber. 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 Morales on 02/26/23 [address]: [facility] Chief Complaint/Reason for Call: Ayesha states that Patient is coming in for a new patient appointment on Wednesday and they need to find out what medical supply company provided the CPAP machine for sleep apnea as they need to get a compliance report. Ayesha states that the sleep study was ordered in October of 2020 and they need to know who the CPAP machine was prescribed by and which medical supply company this was sent to. Please advise. Best time of day caller can be reached: Any Patient advised that office/PCP has 24-48 business hours to return their call: No Normal [facility] [id number] 08-08-2024 [id number] Spoke with regarding her reaction. She had hives all over her body not just at the sensor site. Hives have since resolved, we discussed trying skin TAC just in case she did have a reaction to the sensor adhesive. She also mention she did change laundry detergent so we discussed that potential allergic reaction as well. So she will restart sensor Dexcom G7 either using skin TAC and let me know if she tolerates it. Encouraged to continue using true Metrix meter when sensor not on. Patient agrees with plan. Normal [facility] Urine Cultureon 07-28-2024 URC Below infection leve l. Mixed Gram Pos Gram Neg Org [place] Count 1000-10,000 MIXC Mixed contaminants. Submit a new specimen if indicated. Normal [facility] Comment on above: Performed By: #### L 400.0001, M100.0 ####[facility] [address] [place], [address] Bilirubin Test strip Ql (U)O rdered By: González Dinero on 07-26-2024 Bilirubin Ql (U) Negative Negative [facility] Internal Medicine Office Vis iton 07-26-2024 Internal Medicine Office Visit Normal [facility] Ketones Test strip Ql (U)Ord ered By: González Dinero on 07-26-2024 Ketones Ql (U) Negative Negative [facility] Microscopic analysis of urin e for red blood cells (RBC)Ordered By: González Dinero on 07-26-2024 Microscopic analysis of urine for red blood cells (RBC) 0 SEEN /hpf 0-5 [facility] Mucus LM Ql (Urine sed)Order ed By: González Dinero on 07-26-2024 Mucus Ql (Urine sed) 0 SEEN /hpf [facility] Nitrite Test strip Ql (U)Ord ered By: González Dinero on 07-26-2024 Nitrite Ql (U) Negative Negative [facility] Protein Test strip Ql (U)Ord ered By: González Dinero on 07-26-2024 Protein Ql (U) 30 mg/dl High Negative [facility] Squamous epithelial cells de tection in urine sediment by light microscopyOrdered By: González Dinero on 07-26-2024 Epithelial cells.squamous LM Ql (Urine sed) 5-10 SEEN /hpf 5-10 [facility] Urinalysis, Completeon 07-26 BACTERIA RARE Normal None Seen [facility] Comment on above: Order Comment: COLLE CTOR TO SPECIFY Performed By: #### L 400.0001, M100.0 ####[facility] [address] [place], [address] EPI,SQUAMOUS 5-10 SEEN Normal 5-10 [facility] Comment on above: Order Comment: FAISAL CTOR TO SPECIFY Performed By: #### L 400.0001, M100.2200 ####[facility] [address] [place], [address] WBC 0-5 SEEN Normal 0-5 [facility] Comment on above: Order Comment: FAISAL CTOR TO SPECIFY Performed By: #### L 400.0001, M100.2200 ####[facility] [address] [place], [address] Mucus Ql (Urine sed) 0 SEEN Normal [facility] Comment on above: Order Comment: FAISAL CTOR TO SPECIFY Performed By: #### L 400.0001, M100.2200 ####[facility] [address] [place], [address] RBC 0 SEEN Normal 0-5 [facility] Comment on above: Order Comment: FAISAL CTOR TO SPECIFY Performed By: #### L 400.0001, M100.2200 ####[facility] [address] [place], [address] Urine clarityOrdered By: Diaz Dinero on 07-26-2024 Clarity (U) Clear Clear [facility] Urine color determinationOrd ered By: González Dinero on 07-26-2024 Color (U) Yellow Yellow [facility] Urine cultureOrdered By: Diaz Dinero on 07-26-2024 Bacteria identified Cx Nom (U) Mixed Gram Pos & Gram Neg Org Abnormal [facility] Urine glucose detectionOrder ed By: González Dinero on 07-26-2024 Glucose Ql (U) Normal mg/dl Normal [facility] Urine leukocyte esterase det ection by dipstickOrdered By: González Dinero on 07-26-2024 Leukocyte esterase Test strip Ql (U) 100 /ul High Negative [facility] Urine pHOrdered By: González Dinero on 07-26-2024 pH (U) 6.0 [pH] 5.0 - 8.0 [facility] Urine sediment bacteria coun t by microscopy (number/high power field)Ordered By: González Dinero on 07-26-2024 Bacteria LM.HPF (Urine sed) [#/Area] RARE /hpf None Seen [facility] Urine specific gravity measu rementOrdered By: González Dinero on 07-26-2024 Specific gravity (U) [Rel density] 1.020 1.002-1.030 [facility] Urine urobilinogen measureme ntOrdered By: González Dinero on 07-26-2024 Urobilinogen Ql (U) Normal mg/dl Normal [facility] White blood cell countOrdere d By: González Dinero on 07-26-2024 White blood cell count 0-5 SEEN /hpf 0-5 [facility] COMPLETE URINALYSIS WITH REF EZ TO CULTUREon 07-16-2024 BACTERIA (#/HPF) IN URINE Negative Normal Negative [facility] Comment on above: Performed By: #### L [id number] ####[employer]: GIULIA ROJO ([id number])[facility] [place] ([facility])[address] [place] [address] [place] BILIRUBIN, TOTAL PRESENCE IN URINE Negative Normal Negative [facility] Comment on above: Performed By: #### L [id number] ####[employer]: GIULIA ROJO ([id number])[facility] [place] ([facility])[address] [place] [address] Clarity (U) Clear Normal Clear [facility] Comment on above: Performed By: #### L [id number] ####[employer]: GIULIA ROJO ([id number])[facility] [place] ([facility])[address] [place] [address] [place] Color (U) Yellow Normal Lt. Yellow [facility] Comment on above: Performed By: #### L [id number] ####[employer]: GIULIA ROJO ([id number])[facility] [place] ([facility])[address] [place] [address] [place] GLUCOSE (MG/DL) IN URINE Normal Normal Normal (<70) [facility] Comment on above: Performed By: #### L [id number] ####[employer]: GIULIA ROJO ([id number])[facility] [place] ([facility])[address] [place] [address] HEMOGLOBIN PRESENCE IN URINE Negative Normal Negative [facility] Comment on above: Performed By: #### L [id number] ####[employer]: GIULAI ROJO ([id number])[facility] [place] ([facility])[address] [place] [address] Ketones Ql (U) Negative Normal Negative [facility] Comment on above: Performed By: #### L [id number] ####[employer]: GIULIA ROJO ([id number])[facility] [place] ([facility])[address] [place] [address] LEUKOCYTE ESTERASE PRESENCE IN URINE BY TEST STRIP 75 Marty/uL Abnormal Negative [facility] Comment on above: Performed By: #### L [id number] ####[employer]: GIULIA ROJO ([id number])[facility] [place] ([place])[address] [place] [address] [place] NITRITE PRESENCE IN URINE Negative Normal Negative [facility] Comment on above: Performed By: #### L [id number] ####[employer]: GIULIA ROJO ([id number])[facility] [place] ([facility])[address] [place] [address] [place] pH (U) 6.0 [pH] Normal 5.0-8.0 [facility] Comment on above: Performed By: #### L [id number] ####[employer]: GIULIA ROJO ([id number])[facility] [place] ([place])[address] [place] [address] [place] Protein (U) [Mass/Vol] Negative Normal Negative [facility] Comment on above: Performed By: #### L [id number] ####[employer]: GIULIA ROJO ([id number])[facility] [place] ([place])[address] [place] [address] [place] RBC (#/HPF) IN URINE SEDIMENT Negative Normal 0-2 [facility] Comment on above: Performed By: #### L [id number] ####[employer]: GIULIA ROJO ([id number])[facility] [place] ([facility])[address] [place] [address] Specific gravity (U) [Rel density] 1.027 Normal 1.005-1.030 [facility] Comment on above: Result Comment: SELVIN Roy COMMENTS: A specimen with <=10 WBC is not consistent with inflammation. This specimen will not reflex to a urine culture. Performed By: #### L [id number] ####[employer]: GIULIA ROJO ([id number])[facility] [place] ([place])[address] [place] [address] Specimen volume (U) 12 mL Normal [facility] Comment on above: Performed By: #### L [id number] ####[employer]: GIULIA ROJO ([id number])[facility] [place] ([facility])[address] [place] [address] SQUAMOUS EPITHELIAL CELLS (#/HPF) IN URINE SEDIMENT 6-10 Abnormal 3-5 [facility] Comment on above: Performed By: #### L [id number] ####[employer]: GIULIA ROJO ([id number])[facility] [place] ([facility])[address] [place] [address] UROBILINOGEN (MG/DL) IN URINE Normal Normal Normal (0-1) [facility] Comment on above: Performed By: #### L [id number] ####[employer]: GIULIA ROJO ([id number])[facility] [place] ([facility])[address] [place] [address] [place] WBC (LEUKOCYTE) (#/HPF) IN URINE SEDIMENT 0-2 Normal 0-5 [facility] Comment on above: Performed By: #### L [id number] ####[employer]: GIULIA ROJO ([id number])[facility] [place] ([facility])[address] [place] [address] ED Nursing Noteon 07-16-2024 ED Nursing Note Patient to room 14 w ith c/o dysuria, and frequency for 3 days. V/S obtained, call light within reach. Normal [facility] ED Provider Noteon ED Provider Note EMERGENCY DEPARTMENT ENCOUNTER Pt Name: Fred Melgoza Birthdate 2000 Date of evaluation: 07/16/2024 ED Provider: Mukund Fonseca MD CHIEF COMPLAINT Chief Complaint Patient presents with Female Dysuria HISTORY OF PRESENT ILLNESS (Location/Symptom, Timing/Onset, Context/Setting, Quality, Duration, Modifying Factors, Severity) Note limiting factors. I wore appropriate PPE for the entirety of this encounter. HPI Fred Melgoza is a 24 y.o. who presents to the emergency department with chief complaint of possibly having UTI. The patient has had dysuria and some frequency for the past few days. She denies any major urgency. She denies any blood in the urine. She denies any abnormal vaginal bleeding or discharge. She denies any fevers or chills. No current abdominal pain, vomiting or diarrhea. No flank pain described. She is a diabetic. She says her blood sugars have been fine. No current headaches or visual complaints. No cough or sore throat. No chest pain or trouble breathing. She denies being . No rash or bruising. No numbness or weakness described. No other associated symptoms. Nursing Notes were reviewed. Limitations to history: None Outside historians: Significant other REVIEW OF SYSTEMS Review of Systems Constitutional: Negative for chills and fever. HENT: Negative. Eyes: Negative for visual disturbance. Respiratory: Negative for shortness of breath. Cardiovascular: Negative for chest pain. Gastrointestinal: Negative for abdominal pain, nausea and vomiting. Genitourinary: Positive for dysuria and frequency. Negative for flank pain, hematuria, vaginal bleeding and vaginal discharge. Musculoskeletal: Negative for arthralgias and back pain. Skin: Negative for color change and rash. Neurological: Negative for weakness and numbness. All other systems reviewed and are negative. Pertinent positives and negatives as per HPI. PAST MEDICAL HISTORY Past Medical History: Diagnosis Date Acid reflux Asthma Diabetes mellitus (HCC) Sleep apnea SURGICAL HISTORY History reviewed. No pertinent surgical history. CURRENT MEDICATIONS Previous Medications ALBUTEROL 108 (90 BASE) MCG/ACT INHALER Inhale 2 puffs every 6 hours as needed for wheezing or shortness of breath. ALCOHOL SWABS PADS Use to cleanse skin prior to insulin injection or checking blood sugar BLOOD GLUCOSE MONITORING SUPPL (TRUE METRIX METER) W/DEVICE KIT As directed CHOLECALCIFEROL (VITAMIN D-3) 50 MCG (2000 UT) TABLET Take 2,000 Units by mouth daily. CONTINUOUS GLUCOSE SITE DIRECTOR (Bee ShieldCOM G7 SITE DIRECTOR) [facility] UNILET LANCETS 30G MISC Pt to check glucoses 4-7 times per day GLUCAGON (GVOKE HYPOPEN 2-PACK) 1 MG/0.2ML INJECTION Inject 0.2 mL (1 mg) under the skin Once as needed for low blood sugar. GLUCOSE 4 G CHEWABLE TABLET Chew 4 tablets (16 g) Daily as needed for low blood sugar. INSULIN LISPRO (HUMALOG) 100 UNIT/ML PEN INJECTION Inject 8 Units under the skin 3 times daily (with meals). INSULIN PEN NEEDLE 32G X 4 MM MISC Inject 1 each under the skin 4 times daily (before meals and nightly). Use as instructed LANTUS SOLOSTAR 100 UNIT/ML PEN Inject 10 Units under the skin every morning. METFORMIN XR (GLUCOPHAGE-XR) 500 MG 24 HR TABLET Take 1 tablet (500 mg) by mouth 2 times daily. Do not crush, chew, or split. NIFEDIPINE CC (ADALAT CC) 30 MG 24 HR TABLET Take 30 mg by mouth every morning (before breakfast). Do not crush, chew, or split. NORETHINDRONE (DEBLITANE) 0.35 MG TABLET Take 1 tablet by mouth daily. SERTRALINE (ZOLOFT) 50 MG TABLET Take 50 mg by mouth daily. SUMATRIPTAN (IMITREX) 50 MG TABLET Take 1 tablet (50 mg) by mouth Once as needed for migraine. May repeat after 2 hours. TRUE METRIX BLOOD GLUCOSE TEST TEST STRIP Use as instructed 4 times daily for CGM failure ALLERGIES Prednisone, Wound dressing adhesive, Latex, Cetirizine, Metformin, Microgestin fe 1-20 [norethin yaya-eth estrad-fe], Norgestimate-eth estradiol, and Other FAMILY HISTORY Family History Problem Relation Name Age of Onset Diabetes Mother Hypertension Mother COPD Mother Arthritis Father Cancer Maternal Grandmother Diabetes Maternal Grandfather SOCIAL HISTORY Social History Socioeconomic History Marital status: Tobacco Use Smoking status: Never Smokeless tobacco: Never Vaping Use Vaping status: Never Used Substance and Sexual Activity Alcohol use: Never Drug use: Never Sexual activity: Yes Partners: Male Social Drivers of Health Financial Resource Strain: Low Risk (12/09/2021) Received from [facility] Overall Financial Resource Strain (CARDIA) Difficulty of Paying Living Expenses: Not very hard Food Insecurity: No Food Insecurity (12/09/2021) Received from [facility] Hunger Vital Sign Worried About R (more content not included)... Normal [facility] HCG QUALITATIVE URINEon 07-06 Beta HCG ( test) Ql (U) Negative Normal Negative [facility] Comment on above: Result Comment: Plea se note: Very dilute urine specimens, as indicated by a low specific gravity, may not contain commercial representative levels of hCG. If is still suspected, a first morning urine specimen should be collected 48 hours later and tested. ORDER COMMENTS: is the most common reason for HCG in urine, although choriocarcinoma, hydatidiform mole, and certain nontrophoblastic malignancies also result in detectable urinary HCG levels. Sensitivity = 20mIU/mL. Performed By: #### L [id number] ####[employer]: GIULIA ROJO ([id number])[facility] ([address] Laboratory - Chemistry and C hemistry - challengeOrdered By: Myla Valdes on 07-16-2024 Beta HCG ( test) Ql Negative Negative [facility] Comment on above: Please note: Very di lute urine specimens, as indicated by a low specific gravity, may not contain commercial representative levels of hCG. If is still suspected, a first morning urine specimen should be collected 48 hours later and tested. Beta HCG ( test) Ql (U) is the most common reason for HCG in urine, although choriocarcinoma, hydatidiform mole, and certain nontrophoblastic malignancies also result in detectable urinary HCG levels. Sensitivity = 20mIU/mL. [facility] No Panel Informationon 07-16 Extra Tube Hold for add-ons. [facility] Comment on above: Auto resulted. [facility] No Panel InformationOrdered By: Myla Valdes on 07-16-2024 [facility] URINE CULTUREon 07-16-2024 Bacteria identified Cx Nom (U) URINE CULTURE Reference Normal urogenital kp present [ S = SUSCEPTIBLE R = RESISTANT I = INTERMEDIATE S-DD = Susceptible-dose dependent NS = Non-susceptible NO = No Interpretation ] Normal [facility] Comment on above: Performed By: #### L [id number] ####[employer]: GIULIA ROJO ([id number])[facility] ([address] Urinalysis complete panel (U )on 07-16-2024 Bacteria LM.HPF (Urine sed) [#/Area] Negative Negative /HPF [facility] [facility] Bilirubin Ql (U) Negative Negative mg/dL [facility] Clarity (U) Clear Clear [facility] Color (U) Yellow Lt. Yellow [facility] Epithelial cells.squamous LM.HPF (Urine sed) [#/Area] 6-10 Abnormal [facility] Glucose Ql (U) Normal Normal (<70) mg/dL [facility] Hemoglobin Ql (U) Negative Negative mg/dL [facility] Interpretation and review of laboratory results Abnormal [facility] Ketones (U) [Mass/Vol] Negative Negat debra mg/dL [facility] Leukocyte esterase Test strip Ql (U) 75 Abnormal Negative Marty/uL [facility] Nitrite Ql (U) Negative Negative [facility] pH (U) 6.0 [pH] 5.0 - 8.0 pH [facility] Protein (U) [Mass/Vol] Negative Negat debra mg/dL [facility] RBC LM.HPF (Urine sed) [#/Area] Negative [facility] Specific gravity (U) [Rel density] 1.027 1.005 - 1.030 [facility] Urobilinogen (U) [Mass/Vol] Normal Normal (0-1) mg/dL [facility] Volume, Urine 12 mL [facility] WBC LM.HPF (Urine sed) [#/Area] 0-2 [facility] A specimen with <=10 WBC is not consistent with inflammation. This specimen will not reflex to a urine culture. [facility] Admitting Coordinator Office Visit Reporton 07-11-2024 Admitting Coordinator Office Visit Report Normal [facility] AMB POC HEMOGLOBIN [id number] d By: Murphy Simmons on 06-09-2024 HbA1c (Bld) [Mass fraction] 6.2 % Abnormal - 5.7 % [facility] HbA1c (Bld) [Mass fraction]O rdered By: Murphy Simmons on 06-09-2024 Interpretation and review of laboratory results Abnormal [facility] Office Visiton 06-09-2024 Follow-up visit [id number] Fred Melgoza 2000 F Date Provider Department Center 06/09/2024 [facility] None Family History Problem Relation Age of Onset Diabetes Mother Hypertension Mother COPD Mother Arthritis Father Cancer Maternal Grandmother Diabetes Maternal Grandfather Family Status - Relation Status Age at Mother Alive Father Alive Maternal Grandmother Maternal Grandfather Level of Service:99378 AR OFFICE/OUTPATIENT ESTABLISHED MOD MDM 30 MIN Reason for Visit and Comments: Diabetes Mellitus [183] Follow-up [250103] Normal [facility] System [facility] Progress Noteon 06-09-2024 Progress Note [facility] DICAL [facility] ENDOCRINOLOGY [facility] [address] [place] [address] Dept: [phone] Dept Loc: [phone] Visit type: Established Patient Reason for Visit: Diabetes Mellitus and Follow-up Assessment and Plan 1. Type 2 diabetes mellitus with hyperglycemia, with long-term current use of insulin (HCC) - AMB POC HEMOGLOBIN A1C - insulin pen needle 32G X 4 MM misc; Inject 1 each under the skin 4 times daily (before meals and nightly). Use as instructed, Starting Wed06/09/2024, Normal 2. Class 3 severe obesity with serious comorbidity and body mass index (BMI) of 40.0 to 44.9 in adult, unspecified obesity type (HCC) 3. Thyromegaly 4. Therapeutic drug monitoring Lab Results Component Value Date HGBA1C 6.2 (A) 06/09/2024 HGBA1C 6.3 (H) 06/09/2024 Lab Results Component Value Date EGFR 102 06/09/2024 TSH 2.32 06/09/2024 CHOLESTEROLT 165 06/09/2024 TRIG 134 11/08/2021 HDLCHOLESTER 45 (L) 06/09/2024 LDLCHOLESTER 101 (H) 06/09/2024 MICROALBCREA see below 11/08/2021 ALBUMINCREAT 3 06/09/2024 DM2 Diabetes is: improving Glycemic Target: 7% Recommendations: Dexcom G7/reciever/MSC ( will restart sample notch grinder, her's went through laundry) Continue Lantus 10 units QAM Continue Humalog 8 tidac Continue Metformin XR 500 mg bid denies SE *Taper off insulin as able -Hypo: Glucagon --Gvoke -Meter/Supplies: [employer] has supplies --> BG monitoring: DL 2-3 weeks; sooner if issues. --> Msg to staff to call/send home upload of notch grinder info --> YAYA/ARB: defer until MACR --> Statin: Defer until lipids checked *BC prior to GLP restart and gallbladder disease resolution Education: - Notification Parameters - Glucagon emergency use instructions given Obesity Body mass index is 43.87 kg/m?. Wt Readings from Last 3 Encounters: 06/09/24 271 lb 12.8 oz (123 kg) 04/04/24 272 lb 3.2 oz (123 kg) 12/02/23 266 lb (121 kg) --> Continue to work on lifestyle changes: dietary habits; increasing activity as able, weight reduction --> Optimize DM agents to aid w/ the same such as GLP once GB disease improved Thyromegaly No personal/family hx thyroid disease 11/2023 Thyroid function testing WNL W/ recent thyroiditis is a possibility --> Thyroid function testing, --> THUS 04/07/24 nodules noted does not meet criteria for FNA [x] Records from outside facility/PCP office to be requested. JORDY [x] Scripts sent to pharmacy of choice. Follow up in about 3 months (around 09/08/2024). Diagnostic Data Reviewed Today: CGM AGP Reviewed: Yes Subjective HPI PCP: Keagan Shrestha MD Since AYDEN: Dexcom notch grinder went through wash needs a new one Has had some lows usually later afternoon Plan for Mark after using CPAP regularly--still not using reg due to moved during renovations Stress housing, vehicles etc--new parents Taking OCP 03/28/2024 Delivery; baby girl; ~36 weeks. Health baby. Not - formula exclusively Wt Readings from Last 4 Encounters: 06/09/24 271 lb 12.8 oz (123 kg) 04/04/24 272 lb 3.2 oz (123 kg) 12/02/23 266 lb (121 kg) 04/26/23 242 lb 6.4 oz (110 kg) Medication Cost Concerns: Denies Missed Medication Doses: Denies- only low if not eating Medication Side Effect: Denies Recent Steroid use: Denies Recent Weight Changes: Endorses Exercise Patterns: Gym, ADLs Dietary Patterns: 3x most days. Higher CHO choices Noted diet review from [facility]: Bf saus, egg, toast make into sandwich Lunch works at [employer]-- Dinner protein, veg, starch Snack cheese stick, fruit Drink decaf coffee with SF creamer, water, diet pop Employment/Lifestyle Patterns/Schedule Alterations: Delivered health baby girl 03/28/2024 History of Type 2 Diabetes Age at Onset: 17 yo Circumstances surrounding dx: syncope at school--ED BG 500 Previous hospitalizations for DM: Denies Family hx DM: Endorses-Mother (DM2) Family hx thyroid disease/thyroid cancer: Denies *02/2024 cpeptide 4.52 w/ glucose 136 *02/2024 DAVID negative Current Medication Regimen: Lantus 10 units Humalog Metformin XR 500mg BID Previously Used DM Agents: Metformin: Gi upset Jardiance: recurrent UTI Trulicity: DC re: status Injection Sites/Rotation: rotates; arms only OTC Supplement Usage: Endorses-Vit D supp Glucose Monitoring CGM use: Yes-Dexcom G7 w/ notch grinder BG Monitoring: truemetrix Recent Hypoglycemia: Denies Hypoglycemic Treatment Plan: glucagon BG Trends: Trend Review: Complication History Retinopathy: Denies - Last Dilated Eye Exam: 09/2023 per pt; [place] Neuropathy: Denies - Last DMFE: 12/02/2023. Mechanical Apprentice: NA HTN: Denies HLD: Denies Renal: Denies Cardiac: Denies CVA: Denies AZAM: Endorses- does not wear cpap Gastroparesis: Denies H/o Pancreatitis: Denies Impaired Wound Healing: Denies Amputation: Denies Metabolic Dy (more content not included)... [facility] Admitting Coordinator Office Visit Reporton 05-30-2024 Admitting Coordinator Office Visit Report [facility] 36on 05-12-2024 36 Re-faxed CMN form to [facility]. [facility] 36on 05-09-2024 36 Message released to Allison/YUAN as written. Faxed 05/09/24 10:56 Allison/MSC's further questions if applicable: Will wait for fax Were all questions from office addressed or relayed to the patient from encounter: N/A [facility] 36 Faxed [facility] 36on 05-04-2024 36 Name of caller: Kurtis roy Contact phone number: [phone] option 5 then option 3 Relationship to Patient: [employer] Provider: EVANS Hardwick Practice: [facility] Endocrinology Chief Complaint/Reason for Call: Allison states she is faxing over a CMN that will need to be filled out, signed and dated along with a request for the most updated office notes. Allison is requesting that it be faxed back to [phone]. Please review. Best time of day caller can be reached: any Patient advised that office/PCP has 24-48 business hours to return their call: N/A [facility] [phone] 05-03-2024 Vitamin D 25-OH 26.8 ng/mL Low 30-100 [facility] Comment on above: Result Comment: Carol Ann min D StatusDeficiency: <20 ng/mL (50nmol/L)Insufficiency: 20-30 ng/mL (50-75 nmol/L)Sufficiency: 30-100 ng/mL (75-250 nmol/L)Toxicity: >100 ng/mL (>250 nmol/L) Performed By: #### L [phone] ####[facility] [id number] [place], [place], [id number] No Panel InformationOrdered By: Kayleen [place] on 05-03-2024 Vitamin D 25-Hydroxy 26.8 ng/mL Low 30-100 [facility] Comment on above: Vitamin D StatusDefi ciency: <20 ng/mL (50nmol/L)Insufficiency: 20-30 ng/mL (50-75 nmol/L)Sufficiency: 30-100 ng/mL (75-250 nmol/L)Toxicity: >100 ng/mL (>250 nmol/L) 26.8 ng/mL Low 30-100 [facility] Admitting Coordinator Office Visit Reporton 05-03-2024 Admitting Coordinator Office Visit Report Normal [facility] Surgery Visit Reporton 04-26 Surgery Visit Report Normal [facility] 36on 04-11-[address] from [facility], we are able to see record, patient seen on 04/09/2022, please review. Normal [facility] 36on 04-07-2024 36 Health Maintenance i s showing that pt had JORDY done 12/02/23. That is not so that I can see. It was ordered by kristen Hardwick on that date. Normal [facility] 36 Name of caller: Marin Contact phone number: [phone] Relationship to Patient: [facility] Provider: Myesha Dunbar APRN - EVANS Practice: [facility] ENDO Chief Complaint/Reason for Call: Marin called in regards to patient's eye exam report and states that while she ordered glasses from the [facility] in 2022, she was not seen by their doctor. He states the patient was seen by Dr. Do Luna in 2022 with [facility]. Please advise. Best time of day caller can be reached: Any Patient advised that office/PCP has 24-48 business hours to return their call: Yes Normal [facility] US THYROIDon 04-07-2024 US THYROID Patient Name: FRED GRAY : 2000 Exam Date/Time: 04/07/2024 09:25 Procedure: US THYROID Ordering Provider: DUNBAR MCKENZIE Reason For Exam: GOITER Exam type: Ultrasound thyroid. CLINICAL INDICATION: Goiter COMPARISON: None. TECHNIQUE: Grayscale sonographic images were obtained of the thyroid. Color Doppler was utilized. FINDINGS: Right Lobe: Echotexture: Mildly heterogenous Size: 1.4 x 1.9 x 5.5 cm. Left Lobe: Echotexture: Mildly heterogenous Size: 1.5 x 2.5 x 4.7 cm. Isthmus: 0.4 centimeters in thickness. Thyroid nodules are as follows: Location: Right inferior thyroid lobe Size: 0.5 x 0.6 x 0.7 cm Composition: Partly cystic Echogenicity: Hypoechoic Margins: Smooth Calcifications: None Level of suspicion: TI-RADS* 3: Mildly Suspicious (<5% chance of malignancy) ACR Recommendation: No follow-up indicated based on nodule size Comparison to prior exam: Not applicable Location: Left mid thyroid lobe Size: 0.5 x 0.6 x 0.8 cm Composition: Partly cystic Echogenicity: Hypoechoic Margins: Smooth Calcifications: None Level of suspicion: TI-RADS* 3: Mildly Suspicious (<5% chance of malignancy) ACR Recommendation: No follow-up intubated based on nodule size Comparison to prior exam: Not Applicable Cervical Lymph nodes: None. IMPRESSION: Impression: Normal sized, mildly heterogenous thyroid gland. Subcentimeter nodules as described above which do not meet criteria for follow-up imaging. Please note: There are other existing guidelines to classify thyroid nodules to determine need for FNA. This decision will be deferred to the ordering physician. *TIRADS Risk for malignancy: TI-RADS 1 - 0 points - (benign) <2% risk TI-RADS 2 - 2 points - (not suspicious) <5% TI-RADS 3 - 3 points - (mildly suspicious) <5% - FNA when >/= 2.5cm. Follow when >1.5cm at 1, 3 and 5 years TI-RADS 4 - 4-6 points - (moderately suspicious) 5-20% - FNA when >/= 1.5cm. Follow when >1cm at 1, 2, 3 and 5 years TI-RADS 5 - 7+ points - (highly suspicious) >20% - FNA when >/= 1cm. Follow when >0.5cm every year for up to 5 years TI-RADS (2017) Reference: Tessler, F. ACR Thyroid Imaging, Reporting and Data System (TI-RADS): White Paper of the ACR TI RADS Committee. J Am [facility]. June 2016 Report Dictated on Electronically Signed By: Rosalio Robertson MD Electronically Signed Date/Time: 04/07/2024 4:32 PM EST [facility] US Thyroid glandon Impression: Normal sized, mildly heterogenous thyroid gland. Subcentimeter nodules as described above which do not meet criteria for follow-up imaging. Please note: There are other existing guidelines to classify thyroid nodules to determine need for FNA. This decision will be deferred to the ordering physician. *TIRADS Risk for malignancy: TI-RADS 1 - 0 points - (benign) <2% risk TI-RADS 2 - 2 points - (not suspicious) <5% TI-RADS 3 - 3 points - (mildly suspicious) <5% - FNA when >/= 2.5cm. Follow when >1.5cm at 1, 3 and 5 years TI-RADS 4 - 4-6 points - (moderately suspicious) 5-20% - FNA when >/= 1.5cm. Follow when >1cm at 1, 2, 3 and 5 years TI-RADS 5 - 7+ points - (highly suspicious) >20% - FNA when >/= 1cm. Follow when >0.5cm every year for up to 5 years TI-RADS (2017) Reference: Maida Ambrosio. ACR Thyroid Imaging, Reporting and Data System (TI-RADS): White Paper of the ACR TI RADS Committee. J Am [facility]. June 2016 Report Dictated on Electronically Signed By: Rosalio Robertson MD Electronically Signed Date/Time: 04/07/2024 4:32 PM EST [facility] Patient Name: FRED GRAY : 2000 Exam Date/Time: 04/07/2024 09:25 Procedure: US THYROID Ordering Provider: DUNBAR MCKENZIE Reason For Exam: GOITER Exam type: Ultrasound thyroid. CLINICAL INDICATION: Goiter COMPARISON: None. TECHNIQUE: Grayscale sonographic images were obtained of the thyroid. Color Doppler was utilized. FINDINGS: Right Lobe: Echotexture: Mildly heterogenous Size: 1.4 x 1.9 x 5.5 cm. Left Lobe: Echotexture: Mildly heterogenous Size: 1.5 x 2.5 x 4.7 cm. Isthmus: 0.4 centimeters in thickness. Thyroid nodules are as follows: Location: Right inferior thyroid lobe Size: 0.5 x 0.6 x 0.7 cm Composition: Partly cystic Echogenicity: Hypoechoic Margins: Smooth Calcifications: None Level of suspicion: TI-RADS* 3: Mildly Suspicious (<5% chance of malignancy) ACR Recommendation: No follow-up indicated based on nodule size Comparison to prior exam: Not applicable Location: Left mid thyroid lobe Size: 0.5 x 0.6 x 0.8 cm Composition: Partly cystic Echogenicity: Hypoechoic Margins: Smooth Calcifications: None Level of suspicion: TI-RADS* 3: Mildly Suspicious (<5% chance of malignancy) ACR Recommendation: No follow-up intubated based on nodule size Comparison to prior exam: Not Applicable Cervical Lymph nodes: None. [facility] EM[facility]ENC[facility] RADIOLOGY SYSTEM Elham Robertson MD - 04/07/2024 [facility] Name: [facility]ED [facility] 2000 [id number] Exam Date/Time: 04/07/2024 09:25 Procedure: US THYROID Ordering Provider: DUNBAR MCKENZIE Reason For Exam: GOITER Exam type: Ultrasound thyroid. CLINICAL INDICATION: Goiter COMPARISON: None. TECHNIQUE: Grayscale sonographic images were obtained of the thyroid. Color Doppler was utilized. FINDINGS: Right Lobe: Echotexture: Mildly heterogenous Size: 1.4 x 1.9 x 5.5 cm. Left Lobe: Echotexture: Mildly heterogenous Size: 1.5 x 2.5 x 4.7 cm. Isthmus: 0.4 centimeters in thickness. Thyroid nodules are as follows: Location: Right inferior thyroid lobe Size: 0.5 x 0.6 x 0.7 cm Composition: Partly cystic Echogenicity: Hypoechoic Margins: Smooth Calcifications: None Level of suspicion: TI-RADS* 3: Mildly Suspicious (<5% chance of malignancy) ACR Recommendation: No follow-up indicated based on nodule size Comparison to prior exam: Not applicable Location: Left mid thyroid lobe Size: 0.5 x 0.6 x 0.8 cm Composition: Partly cystic Echogenicity: Hypoechoic Margins: Smooth Calcifications: None Level of suspicion: TI-RADS* 3: Mildly Suspicious (<5% chance of malignancy) ACR Recommendation: No follow-up intubated based on nodule size Comparison to prior exam: Not Applicable Cervical Lymph nodes: None. IMPRESSION: Impression: Normal sized, mildly heterogenous thyroid gland. Subcentimeter nodules as described above which do not meet criteria for follow-up imaging. Please note: There are other existing guidelines to classify thyroid nodules to determine need for FNA. This decision will be deferred to the ordering physician. *TIRADS Risk for malignancy: TI-RADS 1 - 0 points - (benign) <2% risk TI-RADS 2 - 2 points - (not suspicious) <5% TI-RADS 3 - 3 points - (mildly suspicious) <5% - FNA when >/= 2.5cm. Follow when >1.5cm at 1, 3 and 5 years TI-RADS 4 - 4-6 points - (moderately suspicious) 5-20% - FNA when >/= 1.5cm. Follow when >1cm at 1, 2, 3 and 5 years TI-RADS 5 - 7+ points - (highly suspicious) >20% - FNA when >/= 1cm. Follow when >0.5cm every year for up to 5 years TI-RADS (2017) Reference: Maida Ambrosio. ACR Thyroid Imaging, Reporting and Data System (TI-RADS): White Paper of the ACR TI RADS Committee. J [facility]. June 2016 Report Dictated on Electronically Signed By: Rosalio Robertson MD Electronically Signed Date/Time: 04/07/2024 4:32 PM EST [facility] Radiology Study observation (narrative) [facility] US Thyroid glandOrdered By: Elham Robertson on 04-07-2024 [employer] Work Phone: 36on 04-06-2024 36 Left VM for patient to call [employer] [phone] [facility] 04-05-2024 36 Pharmacist informed. [facility] 04-04-2024 36 Can you call/give in fo on home upload of dexcom notch grinder [facility] 04-04-2024 37 *Please arrive 15 mi nutes prior to your scheduled appointment to ensure we have adequate time together at each visit to address all your health needs *It is recommended that you schedule your follow up appointments well in advance as the schedule fills up quickly *Bring your glucometer, blood sugar logs or CGM if being seen for diabetic care to ensure your trends can be thoroughly evaluated *Ordered labs should be done at least a week prior to your next scheduled appointment, fasting unless instructed otherwise *Due to possible lab interference, please hold any biotin-containing supplements including multivitamins or other over the counter supplements for at least 5 days prior to your labs being done. *Should you have any questions or concerns regarding your plan of ekta, please send me a message via [employer] or call [phone] so we can address your needs *Please notify at appointments of any refill needs. Should you require refills prior to your next appointment, please notify the office at least a week prior to your last dose to allow adequate time for review and authorization if required. To Do List: Send trends in 3 weeks - Test your blood sugar 4 times daily via glucometer (or by continuous glucose monitor) and send message/readings to office in 3 weeks for review. Sooner if issues arise. - Your A1c goal is 7% - Work on lifestyle modifications of diet and exercise to assist with improving diabetic control - Check your feet daily for optimal foot care- follow with podiatry if needed - Continue following with ophthalmology every year for your dilated eye exam - Please take your medication as prescribed. If you encounter issues with side effects, glucose control, or cost please let me know - Uncontrolled diabetes has effects on multiple organ systems. Keeping your trends at goal and with limited variability will help to reduce your risk for future complications such as heart disease, chronic kidney disease, nerve damage (neuropathy), and other problems with your feet, oral health, vision, hearing, and mental health. - Be mindful of symptoms of both hypoglycemia (<70) and hyperglycemia (>250) and notify me if you are seeing trends outside these parameters consistently so we can adjust your plan of care. Normal [facility] Office Visiton 04-04-2024 Follow-up visit [id number] Fred Melgoza 2000 F Date Provider Department Center 04/04/2024 [id number] [facility] None Family History Problem Relation Age of Onset Diabetes Mother Hypertension Mother COPD Mother Arthritis Father Cancer Maternal Grandmother Diabetes Maternal Grandfather Family Status - Relation Status Age at Mother Alive Father Alive Maternal Grandmother Maternal Grandfather Level of Service:32017 AR OFFICE/OUTPATIENT ESTABLISHED MOD MDM 30 MIN Reason for Visit and Comments: Diabetes Mellitus [183] Follow-up [954313] Normal [facility] Progress Noteon 04-04-2024 Progress Note [facility] DICAL [facility] [address] [place] [address] Dept: [phone] Dept Loc: [phone] Visit type: Established Patient Reason for Visit: Diabetes Mellitus and Follow-up Assessment and Plan 1. Type 2 diabetes mellitus with hyperglycemia, with long-term current use of insulin (HCC) - glucose 4 g chewable tablet; Chew 4 tablets (16 g) Daily as needed for low blood sugar., Starting Wed04/04/2024, Until Wed04/04/2025 at 2359, Normal - glucagon (Gvoke HypoPen 2-Pack) 1 MG/0.2ML injection; Inject 0.2 mL (1 mg) under the skin Once as needed for low blood sugar., Starting Wed04/04/2024, Normal - True Metrix Blood Glucose Test test strip; Use as instructed 4 times daily for CGM failure, Normal - metFORMIN XR (Glucophage-XR) 500 MG 24 hr tablet; Take 1 tablet (500 mg) by mouth 2 times daily. Do not crush, chew, or split., Starting Wed04/04/2024, Until Wed04/04/2025, Normal - insulin lispro (HumaLOG) 100 UNIT/ML pen injection; Inject 8 Units under the skin 3 times daily (with meals)., Starting Wed04/04/2024, Until Wed04/04/2025, Normal - Lantus SoloStar 100 UNIT/ML pen; Inject 10 Units under the skin every morning., Starting Tu04/04/2024, Until Wed04/04/2025, Normal - Microalbumin / creatinine urine ratio - Lipid panel - Hemoglobin A1c - Comprehensive metabolic panel - TSH - T4, free 2. Obesity (BMI 30-39.9) - TSH - T4, free 3. Thyromegaly - US thyroid Lab Results Component Value Date HGBA1C 6.9 (A) 11/10/2023 HGBA1C 6.2 (A) 02/26/2023 Lab Results Component Value Date EGFR 129 02/29/2024 TSH 1.53 04/26/2023 TRIG 134 11/08/2021 MICROALBCREA see below 11/08/2021 DM2 Diabetes is: improving Glycemic Target: 7% Recommendations: Lantus 11 units bid--> 10 units QAM Humalog 12/16/16--> 8 tidac Metformin XR 500mg HS--> 500 bid *Taper up Metformin XR as tolerated *Taper off insulin as able -Hypo: Glucagon sent today -Meter/Supplies: rx resent --> Labs to be done fasting prior to next visit; discussed holding supplements 5 days prior. Prior to next OV --> BG monitoring: DD 3 weeks; sooner if issues. --> Msg to staff to call/send home upload of notch grinder info --> YAYA/ARB: Defer until UACR screened re: normal BP --> Statin: Defer until lipids checked *BC prior to GLP restart and gallbladder disease resolution Education: - Notification Parameters - Glucagon emergency use instructions given via AVS Obesity Body mass index is 43.93 kg/m?. Wt Readings from Last 3 Encounters: 04/04/24 272 lb 3.2 oz (123 kg) 12/02/23 266 lb (121 kg) 04/26/23 242 lb 6.4 oz (110 kg) --> Continue to work on lifestyle changes: dietary habits; increasing activity as able, weight reduction --> Optimize DM agents to aid w/ the same such as GLP once GB disease improved Thyromegaly No personal/family hx thyroid disease 11/2023 Thyroid function testing WNL W/ recent thyroiditis is a possibility --> Thyroid function testing, THUS [x] Records from outside facility/PCP office to be requested. JORDY [x] Scripts sent to pharmacy of choice. No follow-ups on file. Diagnostic Data Reviewed Today: CGM AGP Reviewed: Yes Subjective HPI PCP: Keagan Shrestha MD Since AYDEN: New to me; AYDEN 11/2023 w/ Kristen Roy Scheduled acute visit w/ me today re: recent delivery 02/2024 LD: false labor 03/28/2024 Delivery; baby girl; ~36 weeks. Health baby. Not - formula exclusively No on control Medication Cost Concerns: Denies Missed Medication Doses: Endorses- x1 HS lantus held re: low BG at home Medication Side Effect: Denies Recent Steroid use: Denies Recent Weight Changes: Endorses- 272 today Exercise Patterns: Gym, ADLs Dietary Patterns: 3x most days. Higher CHO choices Noted diet review from [facility]: Bf saus, egg, toast make into sandwich Lunch works at [employer]-- Dinner protein, veg, starch Snack cheese stick, fruit Drink decaf coffee with SF creamer, water, diet pop Employment/Lifestyle Patterns/Schedule Alterations: Delivered health baby girl 03/28/2024 History of Type 2 Diabetes Age at Onset: 17 yo Circumstances surrounding dx: syncope at school--ED BG 500 Previous hospitalizations for DM: Denies Family hx DM: Endorses-Mother (DM2) Family hx thyroid disease/thyroid cancer: Denies *02/2024 cpeptide 4.52 w/ glucose 136 *02/2024 DAVID negative Current Medication Regimen: Lantus 11 units bid Humalog 12/16/16 Metformin XR 500mg HS Previously Used DM Agents: Metformin: Gi upset Jardiance: recurrent UTI Trulicity: DC re: status Injection Sites/Rotation: rotates; arms only OTC Supplement Usage: Endorses-, magnesium Glucose Monitoring CGM use: Yes-Dexcom G7 w/ notch grinder BG Monitoring: truemetrix Recent Hypoglycemia: Endorses - few various times since homegoing; 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 Normal [facility] Bedside Glucoseon 03-31-2024 FINGERSTICK GLU 97 mg/dL Normal 74-106 [facility] Comment on above: Result Comment: CHILO MEJIA OF PATIENT CARE PER NURSING PROTOCOL Performed By: #### L 501.080 ####[facility] [address] [place], [address] FINGERSTICK GLU 97 mg/dL Normal 74-106 [facility] Comment on above: Result Comment: CHILO GEMENT OF PATIENT CARE PER NURSING PROTOCOL Performed By: #### L 501.080 ####[facility] [address] [place], [address] FINGERSTICK GLU 111 mg/dL High 74-106 [facility] Comment on above: Result Comment: CHILO GEMENT OF PATIENT CARE PER NURSING PROTOCOL Performed By: #### L 501.080 ####[facility] [address] [place], [address] Glucose measurement at [facility] deOrdered By: Shelbi Vargas on 03-31-2024 Glucose [Mass/Vol] 97 mg/dL 74-106 [facility] Comment on above: MANAGEMENT OF PATIEN T CARE PER NURSING PROTOCOL Glucose measurement at bedside 97 mg/dL 74-106 [facility] Bedside Glucoseon 03-30-2024 FINGERSTICK GLU 99 mg/dL Normal 74-106 [facility] Comment on above: Result Comment: CHILO GEMENT OF PATIENT CARE PER NURSING PROTOCOL Performed By: #### L 501.080 ####[facility] [address] [place], [address] FINGERSTICK GLU 88 mg/dL Normal 74-106 [facility] Comment on above: Result Comment: CHILO GEMENT OF PATIENT CARE PER NURSING PROTOCOL Performed By: #### L 501.080 ####[facility] [address] [place], [address] FINGERSTICK GLU 92 mg/dL Normal 74-106 [facility] Comment on above: Result Comment: CHILO GEMENT OF PATIENT CARE PER NURSING PROTOCOL Performed By: #### L 501.080 ####[facility] [address] [place], [address] FINGERSTICK GLU 114 mg/dL High 74-106 [facility] Comment on above: Result Comment: CHILO GEMENT OF PATIENT CARE PER NURSING PROTOCOL Performed By: #### L 501.080 ####[facility] [address] [place], [address] FINGERSTICK GLU 111 mg/dL High 74-106 [facility] Comment on above: Result Comment: CHILO GEMENT OF PATIENT CARE PER NURSING PROTOCOL Performed By: #### L 501.080 ####[facility] [address] [place], [place], [id number] Rule out Beta Strep (Grp. B) on 03-30-2024 PIPER Group B Beta Streptococcus is not isolated. Normal [facility] Comment on above: Performed By: #### M 100.3400 ####[facility] [address] [place], [place], [id number] ALT [Catalytic activity/Vol] Ordered By: Shelbi Vargas on 03-29-2024 Serum or plasma alanine aminotransferase (ALT) measurement 24 U/L - [facility] AST(SGOT)on 03-29-2024 AST [Catalytic activity/Vol] 23 U/L Normal 15-37 [facility] Comment on above: Performed By: #### L 300.4310, L501.4405, L501.4100, L501.0900, L100.0500, L501.1105, L300.3900, L501.1400 ####[facility] [address] [place], [place], [id number] Activated partial thrombopla stin time (aPTT) in platelet poor plasma by coagulation aOrdered By: Shelbi Vargas on 03-29-2024 aPTT Coag (PPP) [Time] 25.1 s 24.1-36.2 [facility] Alanine Aminotransferas (SGP T)on 03-29-2024 ALT [Catalytic activity/Vol] 24 U/L Normal - [facility] Comment on above: Performed By: #### L 300.4310, L501.4405, L501.4100, L501.0900, L100.0500, L501.1105, L300.3900, L501.1400 ####[facility] [address] [place], [address] Bedside Glucoseon 03-29-2024 FINGERSTICK GLU 143 mg/dL High 74-106 [facility] Comment on above: Result Comment: CHILO GEMENT OF PATIENT CARE PER NURSING PROTOCOL Performed By: #### L 501.080 ####[facility] [address] [place], [address] FINGERSTICK GLU 75 mg/dL Normal 74-106 [facility] Comment on above: Result Comment: CHILO GEMENT OF PATIENT CARE PER NURSING PROTOCOL Performed By: #### L 501.080 ####[facility] [address] [place], [address] FINGERSTICK GLU 71 mg/dL Low 74-106 [facility] Comment on above: Result Comment: CHILO GEMENT OF PATIENT CARE PER NURSING PROTOCOL Performed By: #### L 501.080 ####[facility] [address] [place], [address] FINGERSTICK GLU 50 mg/dL Low 74-106 [facility] Comment on above: Result Comment: [facility] k GivenMANAGEMENT OF PATIENT CARE PER NURSING PROTOCOL Performed By: #### L 501.080 ####[facility] [address] [place], [address] FINGERSTICK GLU 38 mg/dL Invalid Interpretation Code 74-106 [facility] Comment on above: Result Comment: Sna k GivenMANAGEMENT OF PATIENT CARE PER NURSING PROTOCOL Performed By: #### L 501.080 ####[facility] [address] [place], [address] FINGERSTICK GLU 109 mg/dL High 74-106 [facility] Comment on above: Result Comment: CHILO GEMENT OF PATIENT CARE PER NURSING PROTOCOL Performed By: #### L 501.080 ####[facility] [address] [place], [address] FINGERSTICK GLU 125 mg/dL High 74-106 [facility] Comment on above: Result Comment: CHILO GEMENT OF PATIENT CARE PER NURSING PROTOCOL Performed By: #### L 501.080 ####[facility] [address] [place], [address] FINGERSTICK GLU 128 mg/dL High 74-106 [facility] Comment on above: Result Comment: CHILO GEMENT OF PATIENT CARE PER NURSING PROTOCOL Performed By: #### L 501.080 ####[facility] [address] [place], [address] CBC-Complete Blood Cnt No Di ffon 03-29-2024 Erythrocyte distribution width (RBC) [Ratio] 14.9 % High 11.6-14.6 [facility] Comment on above: Performed By: #### L 300.4310, L501.4405, L501.4100, L501.0900, L100.0500, L501.1105, L300.3900, L501.1400 ####[facility] [address] [place], [address] Hematocrit (Bld) [Volume fraction] 39.7 % Normal 37-47 [facility] Comment on above: Performed By: #### L 300.4310, L501.4405, L501.4100, L501.0900, L100.0500, L501.1105, L300.3900, L501.1400 ####[facility] [address] [place], [address] Hemoglobin (Bld) [Mass/Vol] 12.9 g/dL Normal 12.0-15.0 [facility] Comment on above: Performed By: #### L 300.4310, L501.4405, L501.4100, L501.0900, L100.0500, L501.1105, L300.3900, L501.1400 ####[facility] [address] [place], [address] MCH (RBC) [Entitic mass] 26.8 pg Low 27.0-32.0 [facility] Comment on above: Performed By: #### L 300.4310, L501.4405, L501.4100, L501.0900, L100.0500, L501.1105, L300.3900, L501.1400 ####[facility] [address] [place], [address] MCHC (RBC) [Mass/Vol] 32.5 g/dL Normal 32-36 [facility] Comment on above: Performed By: #### L 300.4310, L501.4405, L501.4100, L501.0900, L100.0500, L501.1105, L300.3900, L501.1400 ####[facility] [address] [place], [address] MCV (RBC) [Entitic vol] 82.5 fL Normal 81-99 [facility] Comment on above: Performed By: #### L 300.4310, L501.4405, L501.4100, L501.0900, L100.0500, L501.1105, L300.3900, L501.1400 ####[facility] [address] [place], [address] Platelet mean volume (Bld) [Entitic vol] 11.5 fL Normal 6.2-12.0 [facility] Comment on above: Performed By: #### L 300.4310, L501.4405, L501.4100, L501.0900, L100.0500, L501.1105, L300.3900, L501.1400 ####[facility] [address] [place], [address] Platelets (Bld) [#/Vol] 248 10*3/uL Normal 150-450 [facility] Comment on above: Performed By: #### L 300.4310, L501.4405, L501.4100, L501.0900, L100.0500, L501.1105, L300.3900, L501.1400 ####[facility] [address] [place], [address] RBC (Bld) [#/Vol] 4.81 10*6/uL Normal 4.2-5.4 [facility] Comment on above: Performed By: #### L 300.4310, L501.4405, L501.4100, L501.0900, L100.0500, L501.1105, L300.3900, L501.1400 ####[facility] [address] [place], [address] RDW SD 45.0 fl High 35.1-43.9 [facility] Comment on above: Performed By: #### L 300.4310, L501.4405, L501.4100, L501.0900, L100.0500, L501.1105, L300.3900, L501.1400 ####[facility] [address] [place], [address] WBC (Bld) [#/Vol] 22.8 10*3/uL High 4.4-11.0 [facility] Comment on above: Performed By: #### L 300.4310, L501.4405, L501.4100, L501.0900, L100.0500, L501.1105, L300.3900, L501.1400 ####[facility] [address] [place], [address] Creatinine [Mass/Vol]Ordered By: Shelbi Vargas on 03-29-2024 Serum or plasma creatinine measurement (mass/volume) 0.69 mg/dL 0.55-1.02 [facility] Erythrocyte distribution wid th (RBC) [Entitic vol]Ordered By: Shelbi Vargas on 03-29-2024 Erythrocyte distribution width standard deviation 45.0 fl High 35.1-43.9 [facility] Erythrocyte distribution wid th (RBC) [Ratio]Ordered By: Shelbi Vargas on 03-29-2024 Erythrocyte distribution width ratio 14.9 % High 11.6-14.6 [facility] Erythrocyte distribution wid th ratioOrdered By: Shelbi Vargas on 03-29-2024 Erythrocyte distribution width (RBC) [Ratio] 14.9 % High 11.6-14.6 [facility] Erythrocyte distribution wid th standard deviationOrdered By: Shelbi Vargas on 03-29-2024 Erythrocyte distribution width (RBC) [Ratio] 45.0 fl High 35.1-43.9 [facility] Estimated glomerular filtrat ion rate (GFR) AmericanOrdered By: Shelbi Vargas on 03-29-2024 Estimated glomerular filtration rate (GFR) 133 mL/min >60 [facility] Estimation of creatinine warner aranceOrdered By: Shelbi Vargas on 03-29-2024 Estimation of creatinine clearance 176.82 ml/min [facility] Glomerular filtration rate ( GFR) estimationOrdered By: Shelbi Vargas on 03-29-2024 GFR/1.73 sq M.predicted among non-blacks MDRD (S/P/Bld) [Vol rate/Area] 110 mL/min/{1.73_m2} >60 [facility] Comment on above: Non- GFR Calc Glomerular filtration rate (GFR) estimation 110 mL/min >60 [facility] Glucose measurementOrdered B y: Amber aRm on 03-29-2024 Glucose [Mass/Vol] 47 mg/dL Low 74-106 [facility] Comment on above: Glucose result less than 50 mg/dL suggests HYPOGLYCEMIA. Result Comment: Gluc ose result less than 50 mg/dL suggests HYPOGLYCEMIA. Performed By: #### L 501.0100 ####[facility] [address] [place], [address] Glucose measurement 47 mg/dL Low 74-106 [facility] Hematocrit Auto (Bld) [Volum e fraction]Ordered By: Shelbi Vargas on 03-29-2024 Hematocrit (Bld) [Volume fraction] 39.7 % 37-47 [facility] Automated blood hematocrit (percentage) 39.7 % 37-47 [facility] Hemoglobin measurementOrdere d By: Shelbi Vargas on 03-29-2024 Hemoglobin (Bld) [Mass/Vol] 12.9 g/dL 12.0-15.0 [facility] Hemoglobin measurement 12.9 g/dL 12.0-15.0 [facility] normalized rat io (INR) calculationOrdered By: Shelbi Vargas on 03-29-2024 INR Coag (Bld) [Relative time] 1.0 {INR} [facility] International normalized ratio (INR) calculation 1.0 [facility] LDHon 03-29-2024 LDH 447 U/L High 84-246 [facility] Comment on above: Performed By: #### L 504.2610 ####[facility] [address] [place], [address] Laboratory - Chemistry and C hemistry - challengeOrdered By: Shelbi Vargas on 03-29-2024 AST [Catalytic activity/Vol] 23 U/L 15-37 [facility] Lactate dehydrogenase (LDH) measurementOrdered By: Shelbi Vargas on 03-29-2024 LDH [Catalytic activity/Vol] 447 U/L High 84-246 [facility] Lactate dehydrogenase (LDH) measurement 447 U/L High 84-246 [facility] MCV (RBC) [Entitic vol]Order ed By: Shelbi Vargas on 03-29-2024 MCV (mean corpuscular volume) determination 82.5 fL 81-99 [facility] MCV (mean corpuscular volume ) determinationOrdered By: Shelbi Vargas on 03-29-2024 MCV (RBC) [Entitic vol] 82.5 fL 81-99 [facility] Mean corpuscular hemoglobin (MCH) determinationOrdered By: Shelbi Vargas on 03-29-2024 MCH (RBC) [Entitic mass] 26.8 pg Low 27.0-32.0 [facility] Mean corpuscular hemoglobin (MCH) determination 26.8 pg Low 27.0-32.0 [facility] Mean corpuscular hemoglobin concentration (MCHC) determinationOrdered By: Shelbi Vargas on 03-29-2024 MCHC (RBC) [Mass/Vol] 32.5 g/dL - [facility] Mean corpuscular hemoglobin concentration (MCHC) determination 32.5 g/dL - [facility] Mean platelet volume determi nationOrdered By: Shelbi Vargas on 03-29-2024 Platelet mean volume (Bld) [Entitic vol] 11.5 fL 6.2-12.0 [facility] Mean platelet volume determination 11.5 fl 6.2-12.0 [facility] No Panel InformationOrdered By: Shelbi Vargas on 03-29-2024 23 U/L 15-37 [facility] Partial Thromboplast Timeon 03-29-2024 aPTT Coag (Bld) [Time] 25.1 s Normal 24.1-36.2 [facility] Comment on above: Performed By: #### L 300.4310, L501.4405, L501.4100, L501.0900, L100.0500, L501.1105, L300.3900, L501.1400 ####[facility] [address] [place], [address] Platelet countOrdered By: [place] Vargas on 03-29-2024 Platelets (Bld) [#/Vol] 248 10*3/uL 150-450 [facility] Platelet count 248 K/mm3 150-450 [facility] Protein+Creatinine Ratio,Uri neon 03-29-2024 PROT:CRE RATIO 6432 mg/g CRE High 0-200 [facility] Comment on above: Performed By: #### L 300.4310, L501.4405, L501.4100, L501.0900, L100.0500, L501.1105, L300.3900, L501.1400 ####[facility] [address] [place], [address] Protein (U) [Mass/Vol] 642.6 mg/dL High <11.9 [facility] Comment on above: Performed By: #### L 300.4310, L501.4405, L501.4100, L501.0900, L100.0500, L501.1105, L300.3900, L501.1400 ####[facility] [address] [place], [address] UR CREAT 99.90 mg/dL Normal NO RANGE EST. [facility] Comment on above: Performed By: #### L 300.4310, L501.4405, L501.4100, L501.0900, L100.0500, L501.1105, L300.3900, L501.1400 ####[facility] [address] [place], [address] Prothrombin Time w/INRon INR Coag (PPP) [Relative time] 1.0 {INR} Normal [facility] Comment on above: Performed By: #### L 300.4310, L501.4405, L501.4100, L501.0900, L100.0500, L501.1105, L300.3900, L501.1400 ####[facility] [address], [address] PT Coag (PPP) [Time] 13.2 s Normal 11.7-14.9 [facility] Comment on above: Performed By: #### L 300.4310, L501.4405, L501.4100, L501.0900, L100.0500, L501.1105, L300.3900, L501.1400 ####[facility] [address] [place], [address] Prothrombin timeOrdered By: Shelbi Vargas on 03-29-2024 PT Coag (PPP) [Time] 13.2 s 11.7-14.9 [facility] Prothrombin time 13.2 SECONDS 11.7-14.9 [facility] RBC Auto (Bld) [#/Vol]Ordere d By: Shelbi Vargas on 03-29-2024 RBC (Bld) [#/Vol] 4.81 10*6/uL 4.2-5.4 [facility] Automated blood erythrocyte count 4.81 M/mm3 4.2-5.4 [facility] Serum Creatinine AND GFRon 0 03-29-2024 Creatinine [Mass/Vol] 0.69 mg/dL Normal 0.55-1.02 [facility] Comment on above: Result Comment: The validity of the calculated GFR GFRAA in patients over70 years has not been determined. Clinical correlation isessential. Performed By: #### L 300.4310, L501.4405, L501.4100, L501.0900, L100.0500, L501.1105, L300.3900, L501.1400 ####[facility] [address] [place], [place], [phone] ECRCL 176.82 ml/min Normal [facility] Comment on above: Performed By: #### L 300.4310, L501.4405, L501.4100, L501.0900, L100.0500, L501.1105, L300.3900, L501.1400 ####[facility] [address] [place], [place], [phone]) EST GFR - AA 133 mL/min Normal >60 [facility] Comment on above: Result Comment: Afri can Guinean GFR Calc Performed By: #### L 300.4310, L501.4405, L501.4100, L501.0900, L100.0500, L501.1105, L300.3900, L501.1400 ####[facility] [address] [place], [address] GFR/1.73 sq M.predicted among non-blacks MDRD (S/P/Bld) [Vol rate/Area] 110 mL/min/{1.73_m2} Normal >60 [facility] Comment on above: Result Comment: Non- GFR Calc Performed By: #### L 300.4310, L501.4405, L501.4100, L501.0900, L100.0500, L501.1105, L300.3900, L501.1400 ####[facility] [address] [place], [place], [id number] Serum or plasma alanine modi otransferase (ALT) measurementOrdered By: Shelbi Vargas on 03-29-2024 ALT [Catalytic activity/Vol] 24 U/L 13-56 [facility] Serum or plasma creatinine m easurement (mass/volume)Ordered By: Shelbi Vargas on 03-29-2024 Creatinine [Mass/Vol] 0.69 mg/dL 0.55-1.02 [facility] Comment on above: The validity of the calculated GFR & GFRAA in patients over 70 years has not been determined. Clinical correlation is essential. Serum or plasma uric acid me asurement (mass/volume)Ordered By: Shelbi Vargas on 03-29-2024 Urate [Mass/Vol] 5.7 mg/dL 2.6-6.0 [facility] Comment on above: The drugs N-Acetylcy steine and Metamizole may falsely depress this assay. Urate [Mass/Vol]Ordered By: Shelbi Vargas on 03-29-2024 Serum or plasma uric acid measurement (mass/volume) 5.7 mg/dL 2.6-6.0 [facility] Uric Acidon 03-29-2024 URIC 5.7 mg/dL Normal 2.6-6.0 [facility] Comment on above: Result Comment: The drugs N-Acetylcysteine and Metamizole may falselydepress this assay. Performed By: #### L 300.4310, L501.4405, L501.4100, L501.0900, L100.0500, L501.1105, L300.3900, L501.1400 ####[facility] [address] [place], [place], [phone] White blood cell (WBC) count Ordered By: Shelbi Vargas on 03-29-2024 WBC (Bld) [#/Vol] 22.8 10*3/uL High 4.4-11.0 [facility] White blood cell (WBC) count 22.8 K/mm3 High 4.4-11.0 [facility] aPTT Coag (PPP) [Time]Ordere d By: Shelbi aVrgas on 03-29-2024 Activated partial thromboplastin time (aPTT) in platelet poor plasma by coagulation a 25.1 Seconds 24.1-36.2 [facility] Bedside Glucoseon 03-28-2024 FINGERSTICK GLU 98 mg/dL Normal 74-106 [facility] Comment on above: Result Comment: CHILO GEMENT OF PATIENT CARE PER NURSING PROTOCOL Performed By: #### L 501.080 ####[facility] [address] [place], [address] FINGERSTICK GLU 131 mg/dL High 74-106 [facility] Comment on above: Result Comment: CHILO GEMENT OF PATIENT CARE PER NURSING PROTOCOL Performed By: #### L 501.080 ####[facility] [address] [place], [address] FINGERSTICK GLU 71 mg/dL Low 74-106 [facility] Comment on above: Result Comment: CHILO GEMENT OF PATIENT CARE PER NURSING PROTOCOL Performed By: #### L 501.080 ####[facility] [address] [place], [address] FINGERSTICK GLU 73 mg/dL Low 74-106 [facility] Comment on above: Result Comment: CHILO GEMENT OF PATIENT CARE PER NURSING PROTOCOL Performed By: #### L 501.080 ####[facility] [address] [place], [address] FINGERSTICK GLU 75 mg/dL Normal 74-106 [facility] Comment on above: Result Comment: CHILO GEMENT OF PATIENT CARE PER NURSING PROTOCOL Performed By: #### L 501.080 ####[facility] [address] [place], [address] FINGERSTICK GLU 63 mg/dL Low 74-106 [facility] Comment on above: Result Comment: CHILO GEMENT OF PATIENT CARE PER NURSING PROTOCOL Performed By: #### L 501.080 ####[facility] [address] [place], [address] FINGERSTICK GLU 89 mg/dL Normal 74-106 [facility] Comment on above: Result Comment: CHILO GEMENT OF PATIENT CARE PER NURSING PROTOCOL Performed By: #### L 501.080 ####[facility] [address] [place], [address] FINGERSTICK GLU 94 mg/dL Normal 74-106 [facility] Comment on above: Result Comment: CHILO GEMENT OF PATIENT CARE PER NURSING PROTOCOL Performed By: #### L 501.080 ####[facility] [address] [place], [address] FINGERSTICK GLU 108 mg/dL High 74-106 [facility] Comment on above: Result Comment: HCILO GEMENT OF PATIENT CARE PER NURSING PROTOCOL Performed By: #### L 501.080 ####[facility] [address] [place], [address] FINGERSTICK GLU 96 mg/dL Normal 74-106 [facility] Comment on above: Result Comment: CHILO GEMENT OF PATIENT CARE PER NURSING PROTOCOL Performed By: #### L 501.080 ####[facility] [address] [place], [address] FINGERSTICK GLU 104 mg/dL Normal 74-106 [facility] Comment on above: Result Comment: CHILO GEMENT OF PATIENT CARE PER NURSING PROTOCOL Performed By: #### L 501.080 ####[facility] [address] [place], [address] FINGERSTICK GLU 129 mg/dL High 74-106 [facility] Comment on above: Result Comment: CHILO GEMENT OF PATIENT CARE PER NURSING PROTOCOL Performed By: #### L 501.080 ####[facility] [address] [place], [address] FINGERSTICK GLU 120 mg/dL High 74-106 [facility] Comment on above: Result Comment: CHILO GEMENT OF PATIENT CARE PER NURSING PROTOCOL Performed By: #### L 501.080 ####[facility] [address] [place], [address] FINGERSTICK GLU 72 mg/dL Low 74-106 [facility] Comment on above: Result Comment: CHILO GEMENT OF PATIENT CARE PER NURSING PROTOCOL Performed By: #### L 501.080 ####[facility] [address] [place], [address] FINGERSTICK GLU 73 mg/dL Low 74-106 [facility] Comment on above: Result Comment: CHILO GEMENT OF PATIENT CARE PER NURSING PROTOCOL Performed By: #### L 501.080 ####[facility] [address] [place], [address] FINGERSTICK GLU 57 mg/dL Low 74-106 [facility] Comment on above: Result Comment: CHILO GEMENT OF PATIENT CARE PER NURSING PROTOCOL Performed By: #### L 501.080 ####[facility] [address] [place], [address] FINGERSTICK GLU 61 mg/dL Low 74-106 [facility] Comment on above: Result Comment: CHILO GEMENT OF PATIENT CARE PER NURSING PROTOCOL Performed By: #### L 501.080 ####[facility] [address] [place], [address] FINGERSTICK GLU 72 mg/dL Low 74-106 [facility] Comment on above: Result Comment: CHILO GEMENT OF PATIENT CARE PER NURSING PROTOCOL Performed By: #### L 501.080 ####[facility] [address] [place], [address] FINGERSTICK GLU 51 mg/dL Low 74-106 [facility] Comment on above: Result Comment: CHILO GEMENT OF PATIENT CARE PER NURSING PROTOCOL Performed By: #### L 501.080 ####[facility] [address] [place], [address] FINGERSTICK GLU 53 mg/dL Low 74-106 [facility] Comment on above: Result Comment: CHILO GEMENT OF PATIENT CARE PER NURSING PROTOCOL Performed By: #### L 501.080 ####[facility] [address] [place], [address] Creatinine (U) [Mass/Vol]Ord ered By: Shelbi Vargas on 03-28-2024 Urine creatinine measurement (mass/volume) 99.90 mg/dL NO RANGE EST. [facility] Discharge Instructionon 03-09 Discharge Instruction Normal [facility] MR/OB.VAGDELIon 03-28-2024 MR/OB.VAGDELI Normal [facility] Protein/Creatinine (U) [Mass ratio]Ordered By: Shelbi Vargas on 03-28-2024 Urine protein/creatinine mass ratio 6432 mg/g CRE High 0-200 [facility] Random urine protein measure mentOrdered By: Shelbi Vargas on 03-28-2024 Protein (U) [Mass/Vol] 642.6 mg/dL High 0.0-11.8 [facility] Random urine protein measurement 642.6 mg/dL High 0.0-11.8 [facility] Urine creatinine measurement (mass/volume)Ordered By: Shelbi Vargas on 03-28-2024 Creatinine (U) [Mass/Vol] 99.90 mg/dL NO RANGE EST. [facility] Urine protein/creatinine mas s ratioOrdered By: Shelbi Vargas on 03-28-2024 Protein/Creatinine (U) [Mass ratio] 6432 mg/g CRE High 0-200 [facility] AST(SGOT)on 03-27-2024 AST [Catalytic activity/Vol] 19 U/L Normal 15-37 [facility] Comment on above: Performed By: #### L 501.4405, L501.0900, L501.1400, L501.1105, L100.0500, L501.4100 ####[facility] [address] [place], [address] Alanine Aminotransferas (SGP T)on 03-27-2024 ALT [Catalytic activity/Vol] 32 U/L Normal 13-56 [facility] Comment on above: Performed By: #### L 501.4405, L501.0900, L501.1400, L501.1105, L100.0500, L501.4100 ####[facility] [address] [place], [address] Bedside Glucoseon 03-27-2024 FINGERSTICK GLU 105 mg/dL Normal 74-106 [facility] Comment on above: Result Comment: CHILO GEMENT OF PATIENT CARE PER NURSING PROTOCOL Performed By: #### L 501.080 ####[facility] [address] [place], [address] FINGERSTICK GLU 74 mg/dL Normal 74-106 [facility] Comment on above: Result Comment: CHILO GEMENT OF PATIENT CARE PER NURSING PROTOCOL Performed By: #### L 501.080 ####[facility] [address] [place], [address] CBC W/Diff, Automatedon 03-09 Absolute Neut Normal 2.0-7.7 [facility] Comment on above: Result Comment: @OK TO CANCEL PER MARY (WP) - DUPLICATE ORDER Performed By: #### L 100.0100, BTS ####[facility] [address] [place], [address] HCT Normal 37-47 [facility] Comment on above: Result Comment: @OK TO CANCEL PER MARY (WP) - DUPLICATE ORDER Performed By: #### L 100.0100, BTS ####[facility] [address] [place], [address] HGB Normal 12.0-15.0 [facility] Comment on above: Result Comment: @OK TO CANCEL PER MARY (WP) - DUPLICATE ORDER Performed By: #### L 100.0100, BTS ####[facility] [address] [place], [address] MCH Normal 27.0-32.0 [facility] Comment on above: Result Comment: @OK TO CANCEL PER MARY (WP) - DUPLICATE ORDER Performed By: #### L 100.0100, BTS ####[facility] [address] [place], [address] MCHC Normal 32-36 [facility] Comment on above: Result Comment: @OK TO CANCEL PER MARY (WP) - DUPLICATE ORDER Performed By: #### L 100.0100, BTS ####[facility] [address] [place], [address] MCV Normal 81-99 [facility] Comment on above: Result Comment: @OK TO CANCEL PER MARY (WP) - DUPLICATE ORDER Performed By: #### L 100.0100, BTS ####[facility] [address] [place], [address] NEUT% Normal 47-70 [facility] Comment on above: Result Comment: @OK TO CANCEL PER MARY (WP) - DUPLICATE ORDER Performed By: #### L 100.0100, BTS ####[facility] [address] [place], [address] PLT Normal 150-450 [facility] Comment on above: Result Comment: @OK TO CANCEL PER MARY (WP) - DUPLICATE ORDER Performed By: #### L 100.0100, BTS ####[facility] [address] [place], [address] RBC Normal 4.2-5.4 [facility] Comment on above: Result Comment: @OK TO CANCEL PER MARY (WP) - DUPLICATE ORDER Performed By: #### L 100.0100, BTS ####[facility] [address] [place], [address] RDW CV Normal 11.6-14.6 [facility] Comment on above: Result Comment: @OK TO CANCEL PER MARY (WP) - DUPLICATE ORDER Performed By: #### L 100.0100, BTS ####[facility] [address] [place], [address] RDW SD Normal 35.1-43.9 [facility] Comment on above: Result Comment: @OK TO CANCEL PER MARY (WP) - DUPLICATE ORDER Performed By: #### L 100.0100, BTS ####[facility] [address] [place], [address] WBC Normal 4.4-11.0 [facility] Comment on above: Result Comment: @OK TO CANCEL PER MARY (WP) - DUPLICATE ORDER Performed By: #### L 100.0100, BTS ####[facility] [address] [place], [address] CBC-Complete Blood Cnt No Di ffon 03-27-2024 Erythrocyte distribution width (RBC) [Ratio] 14.8 % High 11.6-14.6 [facility] Comment on above: Performed By: #### L 501.4405, L501.0900, L501.1400, L501.1105, L100.0500, L501.4100 ####[facility] [address] [place], [address] Hematocrit (Bld) [Volume fraction] 40.4 % Normal 37-47 [facility] Comment on above: Performed By: #### L 501.4405, L501.0900, L501.1400, L501.1105, L100.0500, L501.4100 ####[facility] [address] [place], [address] Hemoglobin (Bld) [Mass/Vol] 12.9 g/dL Normal 12.0-15.0 [facility] Comment on above: Performed By: #### L 501.4405, L501.0900, L501.1400, L501.1105, L100.0500, L501.4100 ####[facility] [address] [place], [address] MCH (RBC) [Entitic mass] 26.7 pg Low 27.0-32.0 [facility] Comment on above: Performed By: #### L 501.4405, L501.0900, L501.1400, L501.1105, L100.0500, L501.4100 ####[facility] [address] [place], [address] MCHC (RBC) [Mass/Vol] 31.9 g/dL Low 32-36 [facility] Comment on above: Performed By: #### L 501.4405, L501.0900, L501.1400, L501.1105, L100.0500, L501.4100 ####[facility] [address] [place], [address] MCV (RBC) [Entitic vol] 83.5 fL Normal 81-99 [facility] Comment on above: Performed By: #### L 501.4405, L501.0900, L501.1400, L501.1105, L100.0500, L501.4100 ####[facility] [address] [place], [address] Platelet mean volume (Bld) [Entitic vol] 11.8 fL Normal 6.2-12.0 [facility] Comment on above: Performed By: #### L 501.4405, L501.0900, L501.1400, L501.1105, L100.0500, L501.4100 ####[facility] [address] [place], [address] Platelets (Bld) [#/Vol] 273 10*3/uL Normal 150-450 [facility] Comment on above: Performed By: #### L 501.4405, L501.0900, L501.1400, L501.1105, L100.0500, L501.4100 ####[facility] [address] [place], [address] RBC (Bld) [#/Vol] 4.84 10*6/uL Normal 4.2-5.4 [facility] Comment on above: Performed By: #### L 501.4405, L501.0900, L501.1400, L501.1105, L100.0500, L501.4100 ####[facility] [address] [place], [address] RDW SD 44.4 fl High 35.1-43.9 [facility] Comment on above: Performed By: #### L 501.4405, L501.0900, L501.1400, L501.1105, L100.0500, L501.4100 ####[facility] [address] [place], [address] WBC (Bld) [#/Vol] 12.0 10*3/uL High 4.4-11.0 [facility] Comment on above: Performed By: #### L 501.4405, L501.0900, L501.1400, L501.1105, L100.0500, L501.4100 ####[facility] [address] [place], [address] Group B Strep DNA By PCRon 0 03-27-2024 GBS DNA ASSAY Negative Normal Negative [facility] Comment on above: Performed By: #### L 8200.0000 ####[facility] [address] 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, [address] No Panel InformationOrdered By: Amber Ram on 03-27-2024 Specimen Comment (Misc) Not Reportable [facility] Not Reportable [facility] Progress Noteon 03-27-2024 Pull Worker Authentication Interface Message Text Comanage PregestationalDiabetes Mellitus Fred Melgoza is seen at 36w4d for comanagement of Pregestational Diabetes Mellitus Type 2. She complains of new onset headache 7/10 scale. BP were 138/94 and 130/90 . Her blood glucose record was reviewed. Her insulin did not change and oral medications Metformin did not change. Current dose is Lantus 46/46. Log 40/44/70 and Metformin 500mg at HS . History of Presenting Problem: She is accompanied by her significant other. Pregestational Diabetes Fred presents today for her comanage visit. She has type 2 diabetes. The disease course is improving. Blood glucose readings reviewed. Readings are as follows: overall improvement from last week. inconsistent with HS snack and early HS lantus causing some nighttime lows. Past Medical History: Past Medical History: Diagnosis Date Anxiety no medication Depression no medication Diabetes mellitus, type 2 Gallbladder disease affecting pt to have gallbladder removed after Migraine headache Obesity Uncomplicated asthma History reviewed. No pertinent surgical history. Medications: Outpatient Encounter Medications as of 03/27/2024 Medication Sig Dispense Refill nitrofurantoin monohydrate (MACROBID) 100 MG capsule Take 1 Capsule (100 mg) by mouth 2 times daily fluticasone HFA 44 mcg inhaler inhale 2 (TWO) puff inhaled twice a day; administer with spacer insulin glargine (LANTUS) 100 UNIT/ML SOLN injection Inject 70-100 units SQ daily as directed. Current dose 42 units in am and 36 units at HS. (Patient taking differently: Inject 70-100 units SQ daily as directed. Current dose 46 units in am and 46 units at HS.) 30 mL 3 ondansetron (ZOFRAN-ODT) 4 MG disintegrating tablet metFORMIN (GLUCOPHAGE-XR) 500 MG ER tablet Take 1 Tablet (500 mg) by mouth nightly at bedtime 90 Tablet 2 Doxylamine Succinate, Sleep, (UNISOM PO) Take 25 mg by mouth nightly at bedtime promethazine (PHENERGAN) 25 MG tablet Take 1 Tablet (25 mg) by mouth 3 times daily MV & Min w/FA-DHA ( ADULT GUMMY/DHA/FA PO) Take 1 Tablet by mouth daily famotidine (PEPCID) 20 MG tablet Take 1 Tablet (20 mg) by mouth 2 times daily Insulin Lispro, 1 Unit Dial, (HUMALOG) 100 UNIT/ML SOPN Inject 0.15-0.3 mL (15-30 Units) into the skin 3 times daily (before meals) for 162 days (Patient taking differently: Inject 0.15-0.3 mL (15-30 Units) into the skin 3 times daily (before meals) Currently taking 40/44/70) 27 mL 5 Continuous Glucose Sensor (DEXCOM G7 SENSOR) MISC 1 Each by Does not apply route every 10 days for 162 days 3 Each 5 Continuous Glucose Transfer Man (DEXCOM G7 SITE DIRECTOR) PARAM 1 Each by Does not apply route daily 1 Each 0 albuterol 108 (90 Base) MCG/ACT inhaler Inhale 2 Puffs into the lungs every 6 hours as needed fluticasone (FLONASE) 50 MCG/ACT nasal spray 2 Sprays by Does not apply route 2 times daily UNIFINE PENTIPS 29G X 12MM MISC use 1 new pen tip with each injection. lansoprazole (PREVACID) 15 MG capsule Take 2 Capsules (30 mg) by mouth daily Now takes 1 of the 30 mg capsules daily glycopyrrolate (ROBINUL) 2 MG tablet Take 1 Tablet (2 mg) by mouth daily Acetaminophen (TYLENOL PO) Take by mouth Prn for headaches glucose blood (ONE TOUCH ULTRA) test strip Use as directed to check blood sugar 200 Each 3 Alcohol Swabs (ALCOHOL PADS) Use to cleanse skin prior to insulin injection or checking blood sugar 200 Each 2 Lancets MISC Pt to check glucoses 4-7 times per day 200 Each 4 aspirin EC (ECOTRIN LOW STRENGTH) 81 MG EC tablet 81 mg po daily 90 Tablet 3 Magnesium Oxide (MAG OX) 400 (241.3 Mg) MG TABS tablet Take 1 Tablet (400 mg) by mouth daily for 180 days 90 Tablet 1 Blood Glucose Monitoring Suppl (ONE TOUCH ULTRA MINI) w/Device KIT Use as directed. 1 Kit 1 No facility-administered encounter medications on file as of 03/27/2024. Allergies: Allergies Allergen Reactions Prednisone Anaphylaxis and Other (See Comments) Latex Swelling Cetirizine Swelling Metformin Nausea And Vomiting Norethin Yaya-Eth Estrad-Fe Other (See Comments) and Rash Wound Dressing Adhesive Rash ER bandages Family Medical History: Family History Problem Relation Age of Onset Diabetes Mother Heart Failure Mother Asthma Mother Arthritis Mother Diabetes Mellitus I Mother Miscarriages / Stillbirths Mother Sleep Apnea Mother Arthritis Father Colon Cancer Other Social History: Social History Socioeconomic History Marital status: Spouse name: None Number of children: None Years of education: None Highest education level: None Tobacco Use Smoking status: Never Smokeless tobacco: Never Substance and Sexual Activity Alcohol use: Not Currently Drug use: Never Physical Exam: Vitals Extended BP: 130/90 Weight - Scale: (!) 135.7 kg (299 lb 1.6 oz) Heart Rate: Positive Number of Fetuses: 1 Heart Rate: 148 (per [place]) Movement: P (more content not included)... Normal [facility] Protein+Creatinine Ratio,Uri neon 03-27-2024 PROT:CRE RATIO 161 mg/g CRE Normal 0-200 [facility] Comment on above: Performed By: #### L 501.4405, L501.0900, L501.1400, L501.1105, L100.0500, L501.4100 ####[facility] [address] [place], [address] Protein (U) [Mass/Vol] 16.7 mg/dL High <11.9 [facility] Comment on above: Performed By: #### L 501.4405, L501.0900, L501.1400, L501.1105, L100.0500, L501.4100 ####[facility] [address] [place], [address] UR CREAT 104.00 mg/dL Normal NO RANGE EST. [facility] Comment on above: Performed By: #### L 501.4405, L501.0900, L501.1400, L501.1105, L100.0500, L501.4100 ####[facility] [address] [place], [address] Screening beta-hemolytic Str eptococcus cultureOrdered By: Amber aRm on 03-27-2024 Beta-hemolytic Streptococcus culture Group B Beta Streptococcus is not isolated. [facility] Screening beta-hemolytic Streptococcus culture Group B Beta Streptococcus is not isolated. [facility] Serum Creatinine AND GFRon 0 03-27-2024 Creatinine [Mass/Vol] 0.68 mg/dL Normal 0.55-1.02 [facility] Comment on above: Result Comment: The validity of the calculated GFR GFRAA in patients over70 years has not been determined. Clinical correlation isessential. Performed By: #### L 501.4405, L501.0900, L501.1400, L501.1105, L100.0500, L501.4100 ####[facility] [address] [place], [address] ECRCL 179.42 ml/min Normal [facility] Comment on above: Performed By: #### L 501.4405, L501.0900, L501.1400, L501.1105, L100.0500, L501.4100 ####[facility] [address] [place], [address] EST GFR - AA 135 mL/min Normal >60 [facility] Comment on above: Result Comment: Afri can Guinean GFR Calc Performed By: #### L 501.4405, L501.0900, L501.1400, L501.1105, L100.0500, L501.4100 ####[facility] [address] [place], [address] GFR/1.73 sq M.predicted among non-blacks MDRD (S/P/Bld) [Vol rate/Area] 111 mL/min/{1.73_m2} Normal >60 [facility] Comment on above: Result Comment: Non- GFR Calc Performed By: #### L 501.4405, L501.0900, L501.1400, L501.1105, L100.0500, L501.4100 ####[facility] [address] [place], [address] Serum Treponema species anti body detectionOrdered By: Shelbi Vargas on 03-27-2024 Treponema sp Ab Ql (S) Non-Reactive [facility] Treponema sp Ab Ql (S)Ordere d By: Shelbi Vargas on 03-27-2024 Serum Treponema species antibody detection Non-Reactive [facility] Type AND Screenon 03-27-2024 Ab SCREEN GEL Negative Normal [facility] Comment on above: Order Comment: Labor Performed By: #### L 100.0100, BTS ####[facility] [address] [place], [address] Uric Acidon 03-27-2024 URIC 5.1 mg/dL Normal 2.6-6.0 [facility] Comment on above: Result Comment: The drugs N-Acetylcysteine and Metamizole may falselydepress this assay. Performed By: #### L 501.4405, L501.0900, L501.1400, L501.1105, L100.0500, L501.4100 ####[facility] [address] [place], [address] Biophysical Prof W/O Non Str eson 03-24-2024 Biophysical Prof W/O Non Stres Normal [facility] OB Triage Physician Noteon 0 03-24-2024 OB Triage Physician Note Normal [facility] Progress Noteon 03-20-2024 Pull Worker Authentication Interface Message Text Comanage PregestationalDiabetes Mellitus Fred Carmen Devineclaytonchinedu is seen at 35w4d for comanagement of Pregestational Diabetes Mellitus Type 2. She denies any complaints today. STates respiratory issues have resolved. was seen in triage for pedal edema Normal PEC labs. Denies PEC sx today. Normotensive. Her blood glucose record was reviewed. Her insulin changed and oral medications Metformin did not change. Current dose is Lantus 46/46. Log / and Metformin 500mg at HS . History of Presenting Problem: She is accompanied by her significant other. Signs and Symptoms of Labor Fred presents with no labor symptoms. Movement Fred reports normal movement. Vaginal Bleeding During Fred denies any vaginal bleeding at this time. Vaginal DischargeFaith denies any unusual or increase in vaginal discharge. Rupture of Membranes/Leaking Fluid The patient denies any leaking of fluid at this time. Signs and Symptoms of Preeclampsia Fred is presenting with no preeclampsia symptoms. Pain Scale Fred denies any signs or symptoms of pain. Pregestational DiabetesShefren has type 2 diabetes. The disease course is fluctuating. Her symptom course is noncompliant. Blood glucose readings reviewed and are not well controlled. Readings are as follows: food choice and timing related elevations. Prior visit with dietitian: declines follow up. Exercise: encouraged daily. Past Medical History: Past Medical History: Diagnosis Date Anxiety no medication Depression no medication Diabetes mellitus, type 2 Gallbladder disease affecting pt to have gallbladder removed after Migraine headache Obesity Uncomplicated asthma History reviewed. No pertinent surgical history. Medications: Outpatient Encounter Medications as of 03/20/2024 Medication Sig Dispense Refill nitrofurantoin monohydrate (MACROBID) 100 MG capsule Take 1 Capsule (100 mg) by mouth 2 times daily fluticasone HFA 44 mcg inhaler inhale 2 (TWO) puff inhaled twice a day; administer with spacer insulin glargine (LANTUS) 100 UNIT/ML SOLN injection Inject 70-100 units SQ daily as directed. Current dose 42 units in am and 36 units at HS. 30 mL 3 ondansetron (ZOFRAN-ODT) 4 MG disintegrating tablet metFORMIN (GLUCOPHAGE-XR) 500 MG ER tablet Take 1 Tablet (500 mg) by mouth nightly at bedtime 90 Tablet 2 Doxylamine Succinate, Sleep, (UNISOM PO) Take 25 mg by mouth nightly at bedtime promethazine (PHENERGAN) 25 MG tablet Take 1 Tablet (25 mg) by mouth 3 times daily MV & Min w/FA-DHA ( ADULT GUMMY/DHA/FA PO) Take 1 Tablet by mouth daily famotidine (PEPCID) 20 MG tablet Take 1 Tablet (20 mg) by mouth 2 times daily Insulin Lispro, 1 Unit Dial, (HUMALOG) 100 UNIT/ML SOPN Inject 0.15-0.3 mL (15-30 Units) into the skin 3 times daily (before meals) for 162 days 27 mL 5 Continuous Glucose Sensor (DEXCOM G7 SENSOR) MISC 1 Each by Does not apply route every 10 days for 162 days 3 Each 5 Continuous Glucose Transfer Man (DEXCOM G7 SITE DIRECTOR) PARAM 1 Each by Does not apply route daily 1 Each 0 albuterol 108 (90 Base) MCG/ACT inhaler Inhale 2 Puffs into the lungs every 6 hours as needed fluticasone (FLONASE) 50 MCG/ACT nasal spray 2 Sprays by Does not apply route 2 times daily UNIFINE PENTIPS 29G X 12MM MISC use 1 new pen tip with each injection. lansoprazole (PREVACID) 15 MG capsule Take 2 Capsules (30 mg) by mouth daily Now takes 1 of the 30 mg capsules daily glycopyrrolate (ROBINUL) 2 MG tablet Take 1 Tablet (2 mg) by mouth daily Acetaminophen (TYLENOL PO) Take by mouth Prn for headaches glucose blood (ONE TOUCH ULTRA) test strip Use as directed to check blood sugar 200 Each 3 Alcohol Swabs (ALCOHOL PADS) Use to cleanse skin prior to insulin injection or checking blood sugar 200 Each 2 Lancets MISC Pt to check glucoses 4-7 times per day 200 Each 4 aspirin EC (ECOTRIN LOW STRENGTH) 81 MG EC tablet 81 mg po daily 90 Tablet 3 Magnesium Oxide (MAG OX) 400 (241.3 Mg) MG TABS tablet Take 1 Tablet (400 mg) by mouth daily for 180 days 90 Tablet 1 Blood Glucose Monitoring Suppl (ONE TOUCH ULTRA MINI) w/Device KIT Use as directed. 1 Kit 1 No facility-administered encounter medications on file as of 03/20/2024. Allergies: Allergies Allergen Reactions Prednisone Anaphylaxis and Other (See Comments) Latex Swelling Cetirizine Swelling Metformin Nausea And Vomiting Norethin Yaya-Eth Estrad-Fe Other (See Comments) and Rash Family Medical History: Family History Problem Relation Age of Onset Diabetes Mother Heart Failure Mother Asthma Mother Arthritis Mother Diabetes Mellitus I Mother Miscarriages / Stillbirths Mother Sleep Apnea Mother Arthritis Father Colon Cancer Other Social History: Social History Socioeconomic History Marital status: Spouse name: None Number of children: None Years of education: None Highest education (more content not included)... Normal [place] [facility] ALT [Catalytic activity/Vol] Ordered By: Ana Lu on 03-19-2024 Serum or plasma alanine aminotransferase (ALT) measurement 31 U/L [facility] AST(SGOT)on 03-19-2024 AST [Catalytic activity/Vol] 24 U/L Normal 15-37 [facility] Comment on above: Performed By: #### L 501.4405, L501.1400, L100.0500, L501.4100, L501.0900, L501.1105 ####[facility] [address] [place], [address] Alanine Aminotransferas (SGP T)on 03-19-2024 ALT [Catalytic activity/Vol] 31 U/L Normal [facility] Comment on above: Performed By: #### L 501.4405, L501.1400, L100.0500, L501.4100, L501.0900, L501.1105 ####[facility] [address] [place], [address] CBC-Complete Blood Cnt No Di ffon 03-19-2024 Erythrocyte distribution width (RBC) [Ratio] 14.6 % Normal 11.6-14.6 [facility] Comment on above: Performed By: #### L 501.4405, L501.1400, L100.0500, L501.4100, L501.0900, L501.1105 ####[facility] [address] [place], [address] Hematocrit (Bld) [Volume fraction] 38.6 % Normal 37-47 [facility] Comment on above: Performed By: #### L 501.4405, L501.1400, L100.0500, L501.4100, L501.0900, L501.1105 ####[facility] [address] [place], [address] Hemoglobin (Bld) [Mass/Vol] 12.6 g/dL Normal 12.0-15.0 [facility] Comment on above: Performed By: #### L 501.4405, L501.1400, L100.0500, L501.4100, L501.0900, L501.1105 ####[facility] [address] [place], [address] MCH (RBC) [Entitic mass] 26.9 pg Low 27.0-32.0 [facility] Comment on above: Performed By: #### L 501.4405, L501.1400, L100.0500, L501.4100, L501.0900, L501.1105 ####[facility] [address] [place], [address] MCHC (RBC) [Mass/Vol] 32.6 g/dL Normal 32-36 [facility] Comment on above: Performed By: #### L 501.4405, L501.1400, L100.0500, L501.4100, L501.0900, L501.1105 ####[facility] [address] [place], [address] MCV (RBC) [Entitic vol] 82.5 fL Normal 81-99 [facility] Comment on above: Performed By: #### L 501.4405, L501.1400, L100.0500, L501.4100, L501.0900, L501.1105 ####[facility] [address] [place], [address] Platelet mean volume (Bld) [Entitic vol] 11.8 fL Normal 6.2-12.0 [facility] Comment on above: Performed By: #### L 501.4405, L501.1400, L100.0500, L501.4100, L501.0900, L501.1105 ####[facility] [address] [place], [address] Platelets (Bld) [#/Vol] 231 10*3/uL Normal 150-450 [facility] Comment on above: Performed By: #### L 501.4405, L501.1400, L100.0500, L501.4100, L501.0900, L501.1105 ####[facility] [address] [place], [address] RBC (Bld) [#/Vol] 4.68 10*6/uL Normal 4.2-5.4 [facility] Comment on above: Performed By: #### L 501.4405, L501.1400, L100.0500, L501.4100, L501.0900, L501.1105 ####[facility] [address] [place], [address] RDW SD 43.1 fl Normal 35.1-43.9 [facility] Comment on above: Performed By: #### L 501.4405, L501.1400, L100.0500, L501.4100, L501.0900, L501.1105 ####[facility] [address] [place], [address] WBC (Bld) [#/Vol] 12.5 10*3/uL High 4.4-11.0 [facility] Comment on above: Performed By: #### L 501.4405, L501.1400, L100.0500, L501.4100, L501.0900, L501.1105 ####[facility] [address] [place], [address] Creatinine (U) [Mass/Vol]Ord ered By: Ana uL on 03-19-2024 Urine creatinine measurement (mass/volume) 63.10 mg/dL NO RANGE EST. [facility] Creatinine [Mass/Vol]Ordered By: Ana Lu on 03-19-2024 Serum or plasma creatinine measurement (mass/volume) 0.64 mg/dL 0.55-1.02 [facility] Erythrocyte distribution wid th (RBC) [Entitic vol]Ordered By: Ana Lu on 03-19-2024 Erythrocyte distribution width standard deviation 43.1 fl 35.1-43.9 [facility] Erythrocyte distribution wid th (RBC) [Ratio]Ordered By: Ana Lu on 03-19-2024 Erythrocyte distribution width ratio 14.6 % 11.6-14.6 [facility] Estimated glomerular filtrat ion rate (GFR) AmericanOrdered By: Ana Lu on 03-19-2024 Estimated glomerular filtration rate (GFR) 145 mL/min >60 [facility] Estimation of creatinine warner aranceOrdered By: Ana Lu on 03-19-2024 Estimation of creatinine clearance 188.92 ml/min [facility] Glomerular filtration rate ( GFR) estimationOrdered By: Ana Lu on 03-19-2024 Glomerular filtration rate (GFR) estimation 119 mL/min >60 [facility] Hematocrit Auto (Bld) [Volum e fraction]Ordered By: Ana Lu on 03-19-2024 Automated blood hematocrit (percentage) 38.6 % 37-47 [facility] Hemoglobin measurementOrdere d By: Ana Lu on 03-19-2024 Hemoglobin measurement 12.6 g/dL 12.0-15.0 [facility] MCV (RBC) [Entitic vol]Order ed By: Ana Lu on 03-19-2024 MCV (mean corpuscular volume) determination 82.5 fL 81-99 [facility] Mean corpuscular hemoglobin (MCH) determinationOrdered By: Ana Lu on 03-19-2024 Mean corpuscular hemoglobin (MCH) determination 26.9 pg Low 27.0-32.0 [facility] Mean corpuscular hemoglobin concentration (MCHC) determinationOrdered By: Ana Lu on 03-19-2024 Mean corpuscular hemoglobin concentration (MCHC) determination 32.6 g/dL 32-36 [facility] Mean platelet volume determi nationOrdered By: Ana Lu on 03-19-2024 Mean platelet volume determination 11.8 fl 6.2-12.0 [facility] No Panel InformationOrdered By: Ana Lu on 03-19-2024 24 U/L 15-37 [facility] Platelet countOrdered By: May Lu on 03-19-2024 Platelet count 231 K/mm3 150-450 [facility] Protein+Creatinine Ratio,Uri neon 03-19-2024 PROT:CRE RATIO 128 mg/g CRE Normal 0-200 [facility] Comment on above: Performed By: #### L 501.4405, L501.1400, L100.0500, L501.4100, L501.0900, L501.1105 ####[facility] [address] [place], [address] Protein (U) [Mass/Vol] 8.1 mg/dL Normal <11.9 [facility] Comment on above: Performed By: #### L 501.4405, L501.1400, L100.0500, L501.4100, L501.0900, L501.1105 ####[facility] [address] [place], [address] UR CREAT 63.10 mg/dL Normal NO RANGE EST. [facility] Comment on above: Performed By: #### L 501.4405, L501.1400, L100.0500, L501.4100, L501.0900, L501.1105 ####[facility] [address] [place], [address] Protein/Creatinine (U) [Mass ratio]Ordered By: Ana Lu on 03-19-2024 Urine protein/creatinine mass ratio 128 mg/g CRE 0-200 [facility] RBC Auto (Bld) [#/Vol]Ordere d By: Ana Lu on 03-19-2024 Automated blood erythrocyte count 4.68 M/mm3 4.2-5.4 [facility] Random urine protein measure mentOrdered By: Ana Lu on 03-19-2024 Random urine protein measurement 8.1 mg/dL 0.0-11.8 [facility] Serum Creatinine AND GFRon 0 03-19-2024 Creatinine [Mass/Vol] 0.64 mg/dL Normal 0.55-1.02 [facility] Comment on above: Result Comment: The validity of the calculated GFR GFRAA in patients over70 years has not been determined. Clinical correlation isessential. Performed By: #### L 501.4405, L501.1400, L100.0500, L501.4100, L501.0900, L501.1105 ####[facility] [address] [place], [address] ECRCL 188.92 ml/min Normal [facility] Comment on above: Performed By: #### L 501.4405, L501.1400, L100.0500, L501.4100, L501.0900, L501.1105 ####[facility] [address] [place], [address] EST GFR - AA 145 mL/min Normal >60 [facility] Comment on above: Result Comment: Afri can Guine[place] GFR Calc Performed By: #### L 501.4405, L501.1400, L100.0500, L501.4100, L501.0900, L501.1105 ####[facility] [address] [place], [address] GFR/1.73 sq M.predicted among non-blacks MDRD (S/P/Bld) [Vol rate/Area] 119 mL/min/{1.73_m2} Normal >60 [facility] Comment on above: Result Comment: Non- GFR Calc Performed By: #### L 501.4405, L501.1400, L100.0500, L501.4100, L501.0900, L501.1105 ####[facility] [address] [place], [address] Urate [Mass/Vol]Ordered By: Ana Lu on 03-19-2024 Serum or plasma uric acid measurement (mass/volume) 4.9 mg/dL 2.6-6.0 [facility] Uric Acidon 03-19-2024 URIC 4.9 mg/dL Normal 2.6-6.0 [facility] Comment on above: Result Comment: The drugs N-Acetylcysteine and Metamizole may falselydepress this assay. Performed By: #### L 501.4405, L501.1400, L100.0500, L501.4100, L501.0900, L501.1105 ####[facility] [address] [place], [address] White blood cell (WBC) count Ordered By: Ana Lu on 03-19-2024 White blood cell (WBC) count 12.5 K/mm3 High 4.4-11.0 [facility] Biophysical Prof W/O Non Str eson 03-17-2024 Biophysical Prof W/O Non Stres Normal [facility] CBC-Complete Blood Cnt No Di ffon 03-17-2024 Erythrocyte distribution width (RBC) [Ratio] 14.4 % Normal 11.6-14.6 [facility] Comment on above: Performed By: #### L 501.1400, L501.1105, L501.4405, L100.0500, L501.0900, L501.4100 ####[facility] [address] [place], [address] Hematocrit (Bld) [Volume fraction] 36.3 % Low 37-47 [facility] Comment on above: Performed By: #### L 501.1400, L501.1105, L501.4405, L100.0500, L501.0900, L501.4100 ####[facility] [address] [place], [address] Hemoglobin (Bld) [Mass/Vol] 11.6 g/dL Low 12.0-15.0 [facility] Comment on above: Performed By: #### L 501.1400, L501.1105, L501.4405, L100.0500, L501.0900, L501.4100 ####[facility] [address] [place], [address] MCH (RBC) [Entitic mass] 26.4 pg Low 27.0-32.0 [facility] Comment on above: Performed By: #### L 501.1400, L501.1105, L501.4405, L100.0500, L501.0900, L501.4100 ####[facility] [address] [place], [address] MCHC (RBC) [Mass/Vol] 32.0 g/dL Normal 32-36 [facility] Comment on above: Performed By: #### L 501.1400, L501.1105, L501.4405, L100.0500, L501.0900, L501.4100 ####[facility] [address] [place], [address] MCV (RBC) [Entitic vol] 82.7 fL Normal 81-99 [facility] Comment on above: Performed By: #### L 501.1400, L501.1105, L501.4405, L100.0500, L501.0900, L501.4100 ####[facility] [address] [place], [address] Platelet mean volume (Bld) [Entitic vol] 11.6 fL Normal 6.2-12.0 [facility] Comment on above: Performed By: #### L 501.1400, L501.1105, L501.4405, L100.0500, L501.0900, L501.4100 ####[facility] [address] [place], [address] Platelets (Bld) [#/Vol] 235 10*3/uL Normal 150-450 [facility] Comment on above: Performed By: #### L 501.1400, L501.1105, L501.4405, L100.0500, L501.0900, L501.4100 ####[facility] [address] [place], [address] RBC (Bld) [#/Vol] 4.39 10*6/uL Normal 4.2-5.4 [facility] Comment on above: Performed By: #### L 501.1400, L501.1105, L501.4405, L100.0500, L501.0900, L501.4100 ####[facility] [address] [place], [address] RDW SD 43.0 fl Normal 35.1-43.9 [facility] Comment on above: Performed By: #### L 501.1400, L501.1105, L501.4405, L100.0500, L501.0900, L501.4100 ####[facility] [address] [place], [address] WBC (Bld) [#/Vol] 12.1 10*3/uL High 4.4-11.0 [facility] Comment on above: Performed By: #### L 501.1400, L501.1105, L501.4405, L100.0500, L501.0900, L501.4100 ####[facility] [address] [place], [address] OB Triage Physician Noteon 0 03-17-2024 OB Triage Physician Note Normal [facility] Protein+Creatinine Ratio,Uri neon 03-17-2024 PROT:CRE RATIO 101 mg/g CRE Normal 0-200 [facility] Comment on above: Performed By: #### L 501.1400, L501.1105, L501.4405, L100.0500, L501.0900, L501.4100 ####[facility] [address] [place], [address] Protein (U) [Mass/Vol] 14.3 mg/dL High <11.9 [facility] Comment on above: Performed By: #### L 501.1400, L501.1105, L501.4405, L100.0500, L501.0900, L501.4100 ####[facility] [address] [place], [address] UR CREAT 141.00 mg/dL Normal NO RANGE EST. [facility] Comment on above: Performed By: #### L 501.1400, L501.1105, L501.4405, L100.0500, L501.0900, L501.4100 ####[facility] [address] [place], [place], [id number] ALT [Catalytic activity/Vol] Ordered By: Shelbi Vargas on 03-16-2024 Serum or plasma alanine aminotransferase (ALT) measurement 30 U/L [facility] AST(SGOT)on 03-16-2024 AST [Catalytic activity/Vol] 28 U/L Normal 15-37 [facility] Comment on above: Performed By: #### L 501.1400, L501.1105, L501.4405, L100.0500, L501.0900, L501.4100 ####[facility] [address] [place], [address] Alanine Aminotransferas (SGP T)on 03-16-2024 ALT [Catalytic activity/Vol] 30 U/L Normal [facility] Comment on above: Performed By: #### L 501.1400, L501.1105, L501.4405, L100.0500, L501.0900, L501.4100 ####[facility] [address] [place], [address] CBC-Complete Blood Cnt No Di ffon 03-16-2024 Erythrocyte distribution width (RBC) [Ratio] 14.5 % Normal 11.6-14.6 [facility] Comment on above: Performed By: #### L 300.4700, L100.0500 ####[facility] [address] [place], [address] Hematocrit (Bld) [Volume fraction] 37.0 % Normal 37-47 [facility] Comment on above: Performed By: #### L 300.4700, L100.0500 ####[facility] [address] [place], [address] Hemoglobin (Bld) [Mass/Vol] 12.0 g/dL Normal 12.0-15.0 [facility] Comment on above: Performed By: #### L 300.4700, L100.0500 ####[facility] [address] [place], [address] MCH (RBC) [Entitic mass] 26.9 pg Low 27.0-32.0 [facility] Comment on above: Performed By: #### L 300.4700, L100.0500 ####[facility] [address] [place], [address] MCHC (RBC) [Mass/Vol] 32.4 g/dL Normal 32-36 [facility] Comment on above: Performed By: #### L 300.4700, L100.0500 ####[facility] [address] [place], [address] MCV (RBC) [Entitic vol] 83.0 fL Normal 81-99 [facility] Comment on above: Performed By: #### L 300.4700, L100.0500 ####[facility] [address] [place], [address] Platelet mean volume (Bld) [Entitic vol] 11.2 fL Normal 6.2-12.0 [facility] Comment on above: Performed By: #### L 300.4700, L100.0500 ####[facility] [address] [place], [address] Platelets (Bld) [#/Vol] 241 10*3/uL Normal 150-450 [facility] Comment on above: Performed By: #### L 300.4700, L100.0500 ####[facility] [address] [place], [address] RBC (Bld) [#/Vol] 4.46 10*6/uL Normal 4.2-5.4 [facility] Comment on above: Performed By: #### L 300.4700, L100.0500 ####[facility] [address] [place], [address] RDW SD 43.5 fl Normal 35.1-43.9 [facility] Comment on above: Performed By: #### L 300.4700, L100.0500 ####[facility] [address] [place], [address] WBC (Bld) [#/Vol] 13.1 10*3/uL High 4.4-11.0 [facility] Comment on above: Performed By: #### L 300.4700, L100.0500 ####[facility] [address] [place], [address] Creatinine (U) [Mass/Vol]Ord ered By: Shelbi Vargas on 03-16-2024 Urine creatinine measurement (mass/volume) 141.00 mg/dL NO RANGE EST. [facility] Creatinine [Mass/Vol]Ordered By: Shelbi Vargas on 03-16-2024 Serum or plasma creatinine measurement (mass/volume) 0.68 mg/dL 0.55-1.02 [facility] Erythrocyte distribution wid th (RBC) [Entitic vol]Ordered By: Shelbi Vargas on 03-16-2024 Erythrocyte distribution width standard deviation 43.0 fl 35.1-43.9 [facility] Erythrocyte distribution width standard deviation 43.5 fl 35.1-43.9 [facility] Erythrocyte distribution wid th (RBC) [Ratio]Ordered By: Shelbi Vargas on 03-16-2024 Erythrocyte distribution width ratio 14.4 % 11.6-14.6 [facility] Erythrocyte distribution width ratio 14.5 % 11.6-14.6 [facility] Estimated glomerular filtrat ion rate (GFR) AmericanOrdered By: Shelbi Vargas on 03-16-2024 Estimated glomerular filtration rate (GFR) 134 mL/min >60 [facility] Estimation of creatinine warner aranceOrdered By: Shelbi Vargas on 03-16-2024 Estimation of creatinine clearance 177.25 ml/min [facility] Fibrinogenon 03-16-2024 FIBRINOGEN 546 mg/dl High 203-444 [facility] Comment on above: Performed By: #### L 300.4700, L100.0500 ####[facility] [address] [place], [address] Fibrinogen measurementOrdere d By: Shelbi Vargas on 03-16-2024 Fibrinogen measurement 546 mg/dl High 203-444 [facility] Glomerular filtration rate ( GFR) estimationOrdered By: Shelbi Vargas on 03-16-2024 Glomerular filtration rate (GFR) estimation 111 mL/min >60 [facility] Hematocrit Auto (Bld) [Volum e fraction]Ordered By: Shelbi Vargas on 03-16-2024 Automated blood hematocrit (percentage) 36.3 % Low 37-47 [facility] Automated blood hematocrit (percentage) 37.0 % 37-47 [facility] Hemoglobin measurementOrdere d By: Shelbi Vargas on 03-16-2024 Hemoglobin measurement 11.6 g/dL Low 12.0-15.0 [facility] Hemoglobin measurement 12.0 g/dL 12.0-15.0 [facility] MCV (RBC) [Entitic vol]Order ed By: Shelbi Vargas on 03-16-2024 MCV (mean corpuscular volume) determination 82.7 fL 81-99 [facility] MCV (mean corpuscular volume) determination 83.0 fL 81-99 [facility] Mean corpuscular hemoglobin (MCH) determinationOrdered By: Shelbi Vargas on 03-16-2024 Mean corpuscular hemoglobin (MCH) determination 26.4 pg Low 27.0-32.0 [facility] Mean corpuscular hemoglobin (MCH) determination 26.9 pg Low 27.0-32.0 [facility] Mean corpuscular hemoglobin concentration (MCHC) determinationOrdered By: Shelbi Vargas on 03-16-2024 Mean corpuscular hemoglobin concentration (MCHC) determination 32.0 g/dL 32-36 [facility] Mean corpuscular hemoglobin concentration (MCHC) determination 32.4 g/dL 32-36 [facility] Mean platelet volume determi nationOrdered By: Shelbi Vargas on 03-16-2024 Mean platelet volume determination 11.6 fl 6.2-12.0 [facility] Mean platelet volume determination 11.2 fl 6.2-12.0 [facility] No Panel InformationOrdered By: Shelbi Vargas on 03-16-2024 28 U/L 15-37 [facility] OB Triage Physician Noteon 0 03-16-2024 OB Triage Physician Note Normal [facility] OB Triage Physician Note Normal [facility] Platelet countOrdered By: [place] Vargas on 03-16-2024 Platelet count 235 K/mm3 150-450 [facility] Platelet count 241 K/mm3 150-450 [facility] Protein/Creatinine (U) [Mass ratio]Ordered By: Shelbi Vargas on 03-16-2024 Urine protein/creatinine mass ratio 101 mg/g CRE 0-200 [facility] RBC Auto (Bld) [#/Vol]Ordere d By: Shelbi Vargas on 03-16-2024 Automated blood erythrocyte count 4.39 M/mm3 4.2-5.4 [facility] Automated blood erythrocyte count 4.46 M/mm3 4.2-5.4 [facility] Random urine protein measure mentOrdered By: Shelbi Vargas on 03-16-2024 Random urine protein measurement 14.3 mg/dL High 0.0-11.8 [facility] Serum Creatinine AND GFRon 0 03-16-2024 Creatinine [Mass/Vol] 0.68 mg/dL Normal 0.55-1.02 [facility] Comment on above: Result Comment: The validity of the calculated GFR GFRAA in patients over70 years has not been determined. Clinical correlation isessential. Performed By: #### L 501.1400, L501.1105, L501.4405, L100.0500, L501.0900, L501.4100 ####[facility] [address] [place], [address] ECRCL 177.25 ml/min Normal [facility] Comment on above: Performed By: #### L 501.1400, L501.1105, L501.4405, L100.0500, L501.0900, L501.4100 ####[facility] [address] [place], [address] EST GFR - AA 134 mL/min Normal >60 [facility] Comment on above: Result Comment: Afri can [place] GFR Calc Performed By: #### L 501.1400, L501.1105, L501.4405, L100.0500, L501.0900, L501.4100 ####[facility] [address] [place], [address] GFR/1.73 sq M.predicted among non-blacks MDRD (S/P/Bld) [Vol rate/Area] 111 mL/min/{1.73_m2} Normal >60 [facility] Comment on above: Result Comment: Non- GFR Calc Performed By: #### L 501.1400, L501.1105, L501.4405, L100.0500, L501.0900, L501.4100 ####[facility] [address] [place], [address] Urate [Mass/Vol]Ordered By: Shelbi Vargas on 03-16-2024 Serum or plasma uric acid measurement (mass/volume) 5.0 mg/dL 2.6-6.0 [facility] Uric Acidon 03-16-2024 URIC 5.0 mg/dL Normal 2.6-6.0 [facility] Comment on above: Result Comment: The drugs N-Acetylcysteine and Metamizole may falselydepress this assay. Performed By: #### L 501.1400, L501.1105, L501.4405, L100.0500, L501.0900, L501.4100 ####[facility] [address] [place], [address] White blood cell (WBC) count Ordered By: Shelbi Vargas on 03-16-2024 White blood cell (WBC) count 12.1 K/mm3 High 4.4-11.0 [facility] White blood cell (WBC) count 13.1 K/mm3 High 4.4-11.0 [facility] No Panel Informationon 03-15 Negative [facility] Admitting Coordinator Office Visit Reporton 03-15-2024 Admitting Coordinator Office Visit Report Normal [facility] Progress Noteon 03-13-2024 Pull Worker Authentication Interface Message Text Comanage Pregestational T2 Diabetes Mellitus Fred Melgoza is seen at 33w4d for comanagement of Pregestational Diabetes Mellitus. She denies any complaints today. Her blood glucose record was reviewed, hyperglycemia with meals. See problem list for further discussion. Her insulin changed. Current dose is Humalog/Novalog 36 units before breakfast, Humalog/Novalog 40 units before lunch, Humalog/Novalog 62 units before dinner, and Lantus 42 in am, 38 at HS. Pt to also continue Metformin 500 mg at HS . History of Presenting Problem: She is accompanied by her significant other. Fred denies any cramping, contractions, vaginal bleeding, unusual or increase in vaginal discharge, signs and symptoms of pre-eclampsia, or leaking of any fluid. Patient with positive movement. Past Medical History: Past Medical History: Diagnosis Date Anxiety no medication Depression no medication Diabetes mellitus, type 2 Gallbladder disease affecting pt to have gallbladder removed after Migraine headache Obesity Uncomplicated asthma History reviewed. No pertinent surgical history. Medications: Outpatient Encounter Medications as of 03/13/2024 Medication Sig Dispense Refill nitrofurantoin monohydrate (MACROBID) 100 MG capsule Take 1 Capsule (100 mg) by mouth 2 times daily fluticasone HFA 44 mcg inhaler inhale 2 (TWO) puff inhaled twice a day; administer with spacer insulin glargine (LANTUS) 100 UNIT/ML SOLN injection Inject 70-100 units SQ daily as directed. Current dose 42 units in am and 36 units at HS. (Patient taking differently: Inject 70-100 units SQ daily as directed. Current dose 42 units in am and 38 units at HS.) 30 mL 3 ondansetron (ZOFRAN-ODT) 4 MG disintegrating tablet metFORMIN (GLUCOPHAGE-XR) 500 MG ER tablet Take 1 Tablet (500 mg) by mouth nightly at bedtime 90 Tablet 2 Doxylamine Succinate, Sleep, (UNISOM PO) Take 25 mg by mouth nightly at bedtime promethazine (PHENERGAN) 25 MG tablet Take 1 Tablet (25 mg) by mouth 3 times daily MV & Min w/FA-DHA ( ADULT GUMMY/DHA/FA PO) Take 1 Tablet by mouth daily famotidine (PEPCID) 20 MG tablet Take 1 Tablet (20 mg) by mouth 2 times daily Insulin Lispro, 1 Unit Dial, (HUMALOG) 100 UNIT/ML SOPN Inject 0.15-0.3 mL (15-30 Units) into the skin 3 times daily (before meals) for 162 days (Patient taking differently: Inject 0.15-0.3 mL (15-30 Units) into the skin 3 times daily (before meals) Currently taking ) 27 mL 5 albuterol 108 (90 Base) MCG/ACT inhaler Inhale 2 Puffs into the lungs every 6 hours as needed fluticasone (FLONASE) 50 MCG/ACT nasal spray 2 Sprays by Does not apply route 2 times daily lansoprazole (PREVACID) 15 MG capsule Take 2 Capsules (30 mg) by mouth daily Now takes 1 of the 30 mg capsules daily glycopyrrolate (ROBINUL) 2 MG tablet Take 1 Tablet (2 mg) by mouth daily Acetaminophen (TYLENOL PO) Take by mouth Prn for headaches aspirin EC (ECOTRIN LOW STRENGTH) 81 MG EC tablet 81 mg po daily 90 Tablet 3 Magnesium Oxide (MAG OX) 400 (241.3 Mg) MG TABS tablet Take 1 Tablet (400 mg) by mouth daily for 180 days 90 Tablet 1 [DISCONTINUED] DexAMETHasone (DECADRON) 4 MG tablet TAKE 1 TABLET BY MOUTH ONCE DAILY. repeat dose on 02/01/2024 NEEDED Continuous Glucose Sensor ([employer] G7 SENSOR) MISC 1 Each by Does not apply route every 10 days for 162 days 3 Each 5 Continuous Glucose Transfer Man (DEXCOM G7 SITE DIRECTOR) PARAM 1 Each by Does not apply route daily 1 Each 0 UNIFINE PENTIPS 29G X 12MM MISC use 1 new pen tip with each injection. glucose blood (ONE TOUCH ULTRA) test strip Use as directed to check blood sugar 200 Each 3 Alcohol Swabs (ALCOHOL PADS) Use to cleanse skin prior to insulin injection or checking blood sugar 200 Each 2 Lancets MISC Pt to check glucoses 4-7 times per day 200 Each 4 Blood Glucose Monitoring Suppl (ONE TOUCH ULTRA MINI) w/Device KIT Use as directed. 1 Kit 1 No facility-administered encounter medications on file as of 03/13/2024. Allergies: Allergies Allergen Reactions Prednisone Anaphylaxis and Other (See Comments) Latex Swelling Cetirizine Swelling Metformin Nausea And Vomiting Norethin Yaya-Eth Estrad-Fe Other (See Comments) and Rash Family Medical History: Family History Problem Relation Age of Onset Diabetes Mother Heart Failure Mother Asthma Mother Arthritis Mother Diabetes Mellitus I Mother Miscarriages / Stillbirths Mother Sleep Apnea Mother Arthritis Father Colon Cancer Other Social History: Social History Socioeconomic History Marital status: Spouse name: None Number of children: None Years of education: None Highest education level: None Tobacco Use Smoking status: Never Smokeless tobacco: Never Substance and Sexual Activity Alcohol use: Not Currently Drug use: Never Physical Exam: Vitals Extended BP: 130/67 Weight - Scale: (!) 131.7 kg (290 lb 4.8 oz) Fet (more content not included)... Normal [facility] OB Triage Progress Noteon OB Triage Progress Note Normal [facility] Urine Cultureon 03-11-2024 URC Mixed Gram Positive Organisms [place] Count 11,000-25,000 MIXC Mixed contaminants. Submit a new specimen if indicated. Normal [facility] Comment on above: Performed By: #### M [id number] ####[facility] [address] [place], [place], [id number] Biophysical Prof W/O Non Str eson 03-10-2024 Biophysical Prof W/O Non Stres Normal [facility] Clarity (U)Ordered By: Mary Lu on 03-09-2024 Urine clarity Sl. Cloudy Clear [facility] Color (U)Ordered By: Ana Lu on 03-09-2024 Urine color determination Yellow Yellow [facility] Glucose Ql (U)Ordered By: May Lu on 03-09-2024 Urine glucose detection 250 mg/dl High Normal [facility] Ketones Test strip Ql (U)Ord ered By: Ana Lu on 03-09-2024 Urine ketones detection by test strip 5 mg/dl High Negative [facility] Leukocyte esterase Test stri p Ql (U)Ordered By: Ana Lu on 03-09-2024 Urine leukocyte esterase detection by dipstick 100 /ul High Negative [facility] Protein Test strip Ql (U)Ord ered By: Ana Lu on 03-09-2024 Urine protein assay by test strip, semi-quantitative 30 mg/dl High Negative [facility] Specific gravity (U) [Rel de nsity]Ordered By: Ana Lu on 03-09-2024 Urine specific gravity measurement 1.025 1.002-1.030 [facility] Urinalysis, Routine (Dipstic k)on 03-09-2024 BILIRUBIN URINE Negative Normal Negative [facility] Comment on above: Order Comment: CLEAN CATCH Performed By: #### L 400.2010 ####[facility] [address] [place], [place], [id number] Clarity (U) Sl. Cloudy Normal Clear [facility] Comment on above: Order Comment: CLEAN CATCH Performed By: #### L 400.2010 ####[facility] [address] [place], [place], [phone] Color (U) Yellow Normal Yellow [facility] Comment on above: Order Comment: CLEAN CATCH Performed By: #### L 400.2010 ####[facility] [address] [place], [place], [phone] GLUCOSE, UR 250 mg/dl Abnormal Normal [facility] Comment on above: Order Comment: CLEAN CATCH Performed By: #### L 400.2010 ####[facility] [address] [place], [place], [phone] KETONE UR 5 mg/dl Abnormal Negative [facility] Comment on above: Order Comment: CLEAN CATCH Performed By: #### L 400.2010 ####[facility] [address] [place], [address] LEUK ESTERASE 100 /ul Abnormal Negative [facility] Comment on above: Order Comment: CLEAN CATCH Performed By: #### L 400.2010 ####[facility] [address] [place], [address] Nitrite Ql (U) Negative Normal Negative [facility] Comment on above: Order Comment: CLEAN CATCH Performed By: #### L 400.2010 ####[facility] [address] [place], [address] OCCULT BLOOD-UR 10 /ul Abnormal Negative [facility] Comment on above: Order Comment: CLEAN CATCH Performed By: #### L 400.2010 ####[facility] [address] [place], [address] pH UR 5.0 Normal 5.0 - 8.0 [facility] Comment on above: Order Comment: CLEAN CATCH Performed By: #### L 400.2010 ####[facility] [address] [place], [address] PROT DIPSTX 30 mg/dl Abnormal Negative [facility] Comment on above: Order Comment: CLEAN CATCH Performed By: #### L 400.2010 ####[facility] [address] [place], [address] SP.GR. DIPSTX 1.025 Normal 1.002-1.030 [facility] Comment on above: Order Comment: CLEAN CATCH Performed By: #### L 400.2010 ####[facility] [address] [facility] [address] UROBILI 1 mg/dl Abnormal Normal [facility] Comment on above: Order Comment: CLEAN CATCH Performed By: #### L 400.2010 ####[facility] [address] [place], [address] Urine blood detectionOrdered By: Ana Lu on 03-09-2024 Urine blood detection 10 /ul High Negative [facility] Urine cultureOrdered By: Tanisha Lu on 03-09-2024 Urine culture Positive Abnormal [facility] Urine total bilirubin detect ion by test stripOrdered By: Ana Lu on 03-09-2024 Urine total bilirubin detection by test strip Negative Negative [facility] Urobilinogen Ql (U)Ordered B y: Ana Lu on 03-09-2024 Urine urobilinogen measurement 1 mg/dl High Normal [facility] pH (U)Ordered By: Ana Miramontes llins on 03-09-2024 Urine pH 5.0 5.0 - 8.0 [facility] Bacterial vaginosis and vagi nitis rRNA panel Probe (Vag fld)on 03-06-2024 Bacterial vaginosis Ql (Vag fld) [Interp] Not detected Not Detected [facility] C. glabrata DNA ROXANA+probe Ql (Vag fld) Not detected Not Detected [facility] Lora sp DNA ROXANA+probe Ql (Vag fld) Not detected Not Detected [facility] Interpretation and review of laboratory results Normal [facility] T. vaginalis DNA ROXANA+probe Ql (Vag fld) Not detected Not Detected [facility] Methodology: real-ti me PCR A negative result does not preclude a possible infection. This assay can detect the Lora species C. albicans, C. tropicalis, C. parapsilosis, and C. dubliniensis but does not differentiate among them. The assay also detects C. glabrata and C. krusei, but does not differentiate between them. Results should be interpreted in conjunction with other clinical data. This test has not been validated for use with specimens collected by patients at home. This test is intended for medical purposes only and is not valid for the evaluation of suspected sexual abuse or for other forensic purposes. [facility] COMPLETE URINALYSISon 2023 BACTERIA (#/HPF) IN URINE Few Abnormal Negative [facility] Comment on above: Performed By: #### L [id number] ####[employer]: GIULIA ROJO ([id number])[facility] ([address] BILIRUBIN, TOTAL PRESENCE IN URINE Negative Normal Negative [facility] Comment on above: Performed By: #### L [id number] ####[employer]: GIULIA ROJO ([id number])[facility])[address] [place] [address] Clarity (U) Clear Normal Clear [facility] Comment on above: Performed By: #### L [id number] ####[employer]: GIULIA ORJO ([id number])[facility])[address] [place] [address] Color (U) Yellow Normal Lt. Yellow [facility] Comment on above: Performed By: #### L [id number] ####[employer]: GIULIA ROJO ([id number])[address] Glucose (U) [Mass/Vol] 30 mg/dL Normal Normal (<70) [facility] Comment on above: Performed By: #### L [id number] ####[employer]: GIULIA ROJO ([id number])[facility])[address] [place] [address] HEMOGLOBIN PRESENCE IN URINE 0.03 mg/dL Abnormal Negative [facility] Comment on above: Performed By: #### L [id number] ####[employer]: GIULIA ROJO ([id number])[facility])[address] [place] [address] HYALINE CASTS (#/LPF) IN URINE SEDIMENT BY MICROSCOPY Negative Normal Negative [facility] Comment on above: Performed By: #### L [id number] ####[employer]: GIULIA ROJO ([id number])[facility])[address] [place] [address] Ketones Ql (U) Negative Normal Negative [facility] Comment on above: Performed By: #### L [id number] ####[employer]: GIULIA ROJO ([id number])[facility])[address] [place] [address] [place] LEUKOCYTE ESTERASE PRESENCE IN URINE BY TEST STRIP Negative Normal Negative [facility] Comment on above: Performed By: #### L [id number] ####[employer]: GIULIA ROJO ([id number])[facility])[address] [place] [address] [place] MUCUS (#/LPF) IN URINE SEDIMENT Few Normal Negative [facility] Comment on above: Performed By: #### L [id number] ####[employer]: GIULIA ROJO ([id number])[facility] ([facility])[address] [place] [address] NITRITE PRESENCE IN URINE Negative Normal Negative [facility] Comment on above: Performed By: #### L [id number] ####[employer]: GIULIA ROJO ([id number])[facility])[address] [place] [address] pH (U) 5.5 [pH] Normal 5.0-8.0 [facility] Comment on above: Performed By: #### L [id number] ####[employer]: GIULIA ROJO ([id number])[facility] ([facility])[address] [place] [address] Protein (U) [Mass/Vol] 20 mg/dL Abnormal Negative [facility] Comment on above: Performed By: #### L [id number] ####[employer]: GIULIA ROJO ([id number])[facility] ([facility])[address] [place] [address] RBC (#/HPF) IN URINE SEDIMENT 0-2 Normal 0-2 [facility] Comment on above: Performed By: #### L [id number] ####[employer]: GIULIA ROJO ([id number])[facility])[address] [place] [address] Specific gravity (U) [Rel density] 1.030 Normal 1.005-1.030 [facility] Comment on above: Performed By: #### L [id number] ####[employer]: GIULIA ROJO ([id number])[facility])[address] [place] [address] [place] SQUAMOUS EPITHELIAL CELLS (#/HPF) IN URINE SEDIMENT 6-10 Abnormal 3-5 [facility] Comment on above: Performed By: #### L [id number] ####[employer]: GIULIA ROJO ([id number])[facility] ([facility])[address] [place] [address] UROBILINOGEN (MG/DL) IN URINE Normal Normal Normal (0-1) [facility] Comment on above: Performed By: #### L [id number] ####[employer]: GIULIA ROJO ([id number])[facility] ([facility])[address] [place] [address] WBC (LEUKOCYTE) (#/HPF) IN URINE SEDIMENT 0-2 Normal 0-5 [facility] Comment on above: Performed By: #### L [id number] ####[employer]: GIULIA ROJO ([id number])[facility] ([facility])[address] [place] [address] Progress Noteon 03-06-2024 Progress Note ----- ----- Attestation signed by Maria Victoria Campos DO at 03/06/2024 11:27 PM Hospital Care (Independent): I independently saw and evaluated the patient. I agree with the findings and plan of care as documented in the resident's note. I reviewed physical exam findings with the patient and her significant other. Patient notes improvement in symptoms. All questions were answered to their satisfaction. Will plan to discharge home. Return precautions were provided. ----- Department of Obstetrics and Gynecology Labor and Delivery Triage Note CHIEF COMPLAINT: Abdominal Pain HISTORY OF PRESENT ILLNESS: The patient is a 24 y.o. 33w4d. OB History 1 Para Term AB Living SAB IAB Ectopic Multiple Live Births Patient presents with a chief complaint as above. Having abdominal pain all over her belly described as tightening. Q10 minutes. Severe enough to make her cry. Also having stabbing pain to the middle of her back. Big gush of fluid around 6pm. Denies DFM/VB Estimated Due Date: Estimated Date of Delivery: 04/20/24 PAST MEDICAL HISTORY: Past Medical History: Diagnosis Date Acid reflux Asthma Diabetes mellitus (HCC) Sleep apnea PAST SURGICAL HISTORY: History reviewed. No pertinent surgical history. SOCIAL HISTORY: reports that she has never smoked. She has never used smokeless tobacco. She reports that she does not drink alcohol and does not use drugs. MEDICATIONS: Prior to Admission medications Medication Sig Start Date End Date Taking? Authorizing Provider albuterol 108 (90 Base) MCG/ACT inhaler Inhale 2 puffs every 6 hours as needed for wheezing or shortness of breath. 02/02/23 Yes Fifi Morales MD aspirin 81 MG EC tablet 81 mg po daily 10/21/23 Yes Historical Provider, glycopyrrolate (Robinul) 2 MG tablet Take 1 tablet (2 mg) by mouth daily. 05/14/23 Yes Fifi Morales MD insulin lispro (HumaLOG) 100 UNIT/ML pen injection Inject 15-30 Units under the skin in the morning and 15-30 Units at noon and 15-30 Units in the evening. Inject 20 units with bf, for lunch 22 units and for dinner 24 units . 11/10/23 04/20/24 Yes Historical Provider, Lanjuan SoloStar 100 UNIT/ML pen Inject 37 before bedtime 11/23/23 Yes Historical Provider, magnesium oxide (Mag-Ox) 400 (240 Mg) MG tablet Take 1 Tablet (400 mg) by mouth daily for 180 days Yes Historical Provider, VIT W/ FE BISG-FA PO Take by mouth. Yes Historical Provider, SUMAtriptan (Imitrex) 50 MG tablet Take 1 tablet (50 mg) by mouth Once as needed for migraine. May repeat after 2 hours. 12/10/22 12/10/23 Fifi Morales MD Unifine Pentips 29G X 12MM misc use 1 new pen tip with each injection. Patient not taking: Reported on 03/06/2024 11/02/23 Historical Provider, CARE: Complicated by: DM on humalog and lantus, Asthma, Gallstones REVIEW OF SYSTEMS: A comprehensive review of systems was negative. APPEARANCE: Pain: No PHYSICAL EXAM: Vital Signs: VS wnl-reviewed/Respirations normal effort Vitals: 03/06/24 1840 BP: 129/81 Pulse: 95 Resp: 18 Temp: 36.4 ?C (97.5 ?F) TempSrc: Oral SpO2: 98% Abdomen: soft, NT, ND, no rebound/guarding Uterus: gravid/non-tender LE Edema: trace Speculum Exam: no pooling of fluid seen, Nitrizine test is negative, Ferning test is negative, cervix visually closed heart rate: Category I Cervix: closed Contraction frequency: none Membranes: Intact Musculoskeletal: Hypertonic paraspinal muscles from throacic to lumbar region that are tender to palpation. RESULTS: NST: Reactive GENERAL LABS: No results found for this or any previous visit (from the past 24 hours). TRIAGE COURSE: BSUS cephalic SVE closed SSE as above Lidocaine and flexaril for pain Vaginitis panel collected Will re-evaluate in 2 hours unchanged at this time. FHT Cat I and reactive. BGT on Dexcom 109. Patient reports improvement of sx. UA negative. Ucx and vaginitis pending, will follow up outpatient. Provided triage precautions and advised her to keep next OB appt. IMPRESSION: False Labor Pain assessment and plan: None DISCUSSED WITH PNC PROVIDER: Dr. Humphrey DISPOSITION: Discharge to Home Normal [facility] [employer]ios [employer] Authentication Interface Message Text DIABETES AND PROGRAM COMANAGEMENT 03/12/2024 Referring/Requesting Provider: Anirudh De Los Santos MD PCP: No Primary Care, MD Gunjan CHIEF COMPLAINT: T2DM IMPRESSION AND RECOMMENDATIONS Fred is a 24 y.o. at 33w4d here for diabetes co-management visit. Blood glucose log was reviewed today; medication changes were discussed with patient. Ultrasound today shows BPP 8/8, known 2VC F/u in 1 week for co-management Kiel MOLINAA [facility]AC[facility] Maternal- Medicine HISTORY OF PRESENT ILLNESS: Fred is a 24 y.o. at 33w4d with diabetes in treated with insulin. There are no complaints today and denies abdominal pain, contractions, bleeding, leakage of fluid, and preeclampsia symptoms. She reports normal movement. OB History Para Term AB Living 1 0 0 0 0 0 SAB IAB Ectopic Multiple Live Births 0 0 0 0 0 # Outcome Date GA Lbr Riki/2nd Weight Sex Type Anes PTL Lv 1 Current Past Medical History: Diagnosis Date Anxiety no medication Depression no medication Diabetes mellitus, type 2 Gallbladder disease affecting pt to have gallbladder removed after Migraine headache Obesity Uncomplicated asthma History reviewed. No pertinent surgical history. Outpatient Medications Marked as Taking for the 03/06/24 encounter (Office Visit) with Fidel Dutta MD Medication Sig Dispense Refill fluticasone HFA 44 mcg inhaler inhale 2 (TWO) puff inhaled twice a day; administer with spacer insulin glargine (LANTUS) 100 UNIT/ML SOLN injection Inject 70-100 units SQ daily as directed. Current dose 42 units in am and 36 units at HS. (Patient taking differently: Inject 70-100 units SQ daily as directed. Current dose 46 units in am and 36 units at HS.) 30 mL 3 ondansetron (ZOFRAN-ODT) 4 MG disintegrating tablet metFORMIN (GLUCOPHAGE-XR) 500 MG ER tablet Take 1 Tablet (500 mg) by mouth nightly at bedtime 90 Tablet 2 Doxylamine Succinate, Sleep, (UNISOM PO) Take 25 mg by mouth nightly at bedtime promethazine (PHENERGAN) 25 MG tablet Take 1 Tablet (25 mg) by mouth 3 times daily MV & Min w/FA-DHA ( ADULT GUMMY/DHA/FA PO) Take 1 Tablet by mouth daily famotidine (PEPCID) 20 MG tablet Take 1 Tablet (20 mg) by mouth 2 times daily Insulin Lispro, 1 Unit Dial, (HUMALOG) 100 UNIT/ML SOPN Inject 0.15-0.3 mL (15-30 Units) into the skin 3 times daily (before meals) for 162 days (Patient taking differently: Inject 0.15-0.3 mL (15-30 Units) into the skin 3 times daily (before meals) Currently taking ) 27 mL 5 Continuous Glucose Sensor (DEXCOM G7 SENSOR) MISC 1 Each by Does not apply route every 10 days for 162 days 3 Each 5 Continuous Glucose Transfer Man (DEXCOM G7 SITE DIRECTOR) PARAM 1 Each by Does not apply route daily 1 Each 0 albuterol 108 (90 Base) MCG/ACT inhaler Inhale 2 Puffs into the lungs every 6 hours as needed fluticasone (FLONASE) 50 MCG/ACT nasal spray 2 Sprays by Does not apply route 2 times daily UNIFINE PENTIPS 29G X 12MM MISC use 1 new pen tip with each injection. lansoprazole (PREVACID) 15 MG capsule Take 2 Capsules (30 mg) by mouth daily Now takes 1 of the 30 mg capsules daily glycopyrrolate (ROBINUL) 2 MG tablet Take 1 Tablet (2 mg) by mouth daily Acetaminophen (TYLENOL PO) Take by mouth Prn for headaches glucose blood (ONE TOUCH ULTRA) test strip Use as directed to check blood sugar 200 Each 3 Alcohol Swabs (ALCOHOL PADS) Use to cleanse skin prior to insulin injection or checking blood sugar 200 Each 2 Lancets MISC Pt to check glucoses 4-7 times per day 200 Each 4 aspirin EC (ECOTRIN LOW STRENGTH) 81 MG EC tablet 81 mg po daily 90 Tablet 3 Magnesium Oxide (MAG OX) 400 (241.3 Mg) MG TABS tablet Take 1 Tablet (400 mg) by mouth daily for 180 days 90 Tablet 1 Blood Glucose Monitoring Suppl (ONE TOUCH ULTRA MINI) w/Device KIT Use as directed. 1 Kit 1 Allergies Allergen Reactions Prednisone Anaphylaxis and Other (See Comments) Latex Swelling Cetirizine Swelling Metformin Nausea And Vomiting Norethin Yaya-Eth Estrad-Fe Other (See Comments) and Rash PHYSICAL EXAM: VITAL SIGNS: BP 122/70 Pulse 105 Resp 20 Wt (!) 128 kg (282 lb 3 oz) LMP 07/15/2023 SpO2 97% BMI 45.57 kg/m AAOx3, NAD Resp effort normal This documentation was prepared using [employer] voice recognition software. As a result, errors may occur. When identified, these errors have been corrected. While every attempt is made to correct errors during dictation, errors may still exist. [employer] Chart review and preparation: 5 minutes. Face to face: 10 minutes. Documentation and care coordination: 5 minutes. =-=-=-=-=-=-==-=-=-=-=-=- ==-=-=-=-=-=-==-=-=-=-= Total time spent on patient care today: 20 minutes. Normal [facility] URINE CULTUREon 03-06-2024 Bacteria identified Cx Nom (U) URINE CULTURE Reference Normal urogenital kp present [ S = SUSCEPTIBLE R = RESISTANT I = INTERMEDIATE S-DD = Susceptible-dose dependent NS = Non-susceptible NO = No Interpretation ] Normal [facility] Comment on above: Performed By: #### L [id number] ####[employer]: GIULIA ROJO ([id number])[facility] ([facility])[address] [place] [address] Urinalysis complete panel (U )Ordered By: Rubina Hernández on 03-06-2024 Bacteria LM.HPF (Urine sed) [#/Area] Few Abnormal Negative /HPF [facility] Bilirubin Ql (U) Negative Negative mg/dL [facility] Clarity (U) Clear Clear [facility] Color (U) Yellow Lt. Yellow [facility] Epithelial cells.squamous LM.HPF (Urine sed) [#/Area] 6-10 Abnormal [facility] Glucose Ql (U) 30 mg/dL Normal (<70) [facility] Hemoglobin Ql (U) 0.03 mg/dL Abnormal Negative [facility] Hyaline casts Auto (Urine sed) [#/Area] Negative Negative /LPF [facility] Interpretation and review of laboratory results Abnormal [facility] Ketones (U) [Mass/Vol] Negative Negat debra mg/dL [facility] Leukocyte esterase Test strip Ql (U) Negative Negative Marty/uL [facility] Mucus LM.HPF (Urine sed) [#/Area] Few Negative /LPF [facility] Nitrite Ql (U) Negative Negative [facility] pH (U) 5.5 [pH] 5.0 - 8.0 pH [facility] Protein (U) [Mass/Vol] 20 mg/dL Abnormal Negative [facility] RBC LM.HPF (Urine sed) [#/Area] 0-2 [facility] Specific gravity (U) [Rel density] 1.03 1.005 - 1.030 [facility] Urobilinogen (U) [Mass/Vol] Normal Normal (0-1) mg/dL [facility] WBC LM.HPF (Urine sed) [#/Area] 0-2 [facility] VAGINITIS PANEL MVP PCRon VAGINITIS PANEL MVP PCR BACTERIAL VAGINOSIS MVP PCR Reference Not Detected Not Detected LORA SPP MVP PCR Reference Not Detected Not Detected LORA GLABRATA/KRUSEI MVP PCR Reference Not Detected Not Detected TRICHOMONAS VAGINALIS MVP PCR Reference Not Detected Not Detected ORDER COMMENTS: Methodology: real-time PCR A negative result does not preclude a possible infection. This assay can detect the Lora species C. albicans, C. tropicalis, C. parapsilosis, and C. dubliniensis but does not differentiate among them. The assay also detects C. glabrata and C. krusei, but does not differentiate between them. Results should be interpreted in conjunction with other clinical data. This test has not been validated for use with specimens collected by patients at home. This test is intended for medical purposes only and is not valid for the evaluation of suspected sexual abuse or for other forensic purposes. Normal [facility] Comment on above: Performed By: #### L [id number] ####[employer]: GIULIA ROJO ([id number])[address] Biophysical Prof W/O Non Str eson 03-03-2024 Biophysical Prof W/O Non Stres Normal [facility] Bacteria LM.HPF (Urine sed) [#/Area]Ordered By: Lulu Moscoso on 03-02-2024 Urine sediment bacteria count by microscopy (number/high power field) RARE /hpf None Seen [facility] Basic Metabolic Profile (BMP )on 03-02-2024 BUN/CRE 17.1 RATIO Normal 10-20 [facility] Comment on above: Performed By: #### L 500.2500 ####[facility] [address] [place], [place], [id number] CA,Total 8.6 mg/dL Normal 8.5-10.1 [facility] Comment on above: Performed By: #### L 500.2500 ####[facility] [address] [place], [address] Chloride [Moles/Vol] 111 mmol/L High 98-107 [facility] Comment on above: Performed By: #### L 500.2500 ####[facility] [address] [place], [address] CO2 [Moles/Vol] 20.0 mmol/L Low 21.0-32.0 [facility] Comment on above: Performed By: #### L 500.2500 ####[facility] [address] [place], [address] Creatinine [Mass/Vol] 0.64 mg/dL Normal 0.55-1.02 [facility] Comment on above: Result Comment: The validity of the calculated GFR GFRAA in patients over70 years has not been determined. Clinical correlation isessential. Performed By: #### L 500.2500 ####[facility] [address] [place], [address] ECRCL 184.01 ml/min Normal [facility] Comment on above: Performed By: #### L 500.2500 ####[facility] [address] [place], [address] EST GFR - AA 144 mL/min Normal >60 [facility] Comment on above: Result Comment: Afri can Guinean GFR Calc Performed By: #### L 500.2500 ####[facility] [address] [place], [address] GAP 9 Normal 5-15 [facility] Comment on above: Performed By: #### L 500.2500 ####[facility] [address] [place], [address] GFR/1.73 sq M.predicted among non-blacks MDRD (S/P/Bld) [Vol rate/Area] 119 mL/min/{1.73_m2} Normal >60 [facility] Comment on above: Result Comment: Non- GFR Calc Performed By: #### L 500.2500 ####[facility] [address] [place], [address] Glucose [Mass/Vol] 77 mg/dL Normal 74-106 [facility] Comment on above: Performed By: #### L 500.2500 ####[facility] [address] [place], [address] Potassium [Moles/Vol] 3.5 mmol/L Normal 3.5-5.1 [facility] Comment on above: Performed By: #### L 500.2500 ####[facility] [address] [place], [address] Sodium [Moles/Vol] 139 mmol/L Normal 136-145 [facility] Comment on above: Performed By: #### L 500.2500 ####[facility] [address] [place], [address] Urea nitrogen [Mass/Vol] 11 mg/dL Normal 7-18 [facility] Comment on above: Performed By: #### L 500.2500 ####[facility] [address] [place], [address] Blood urea nitrogen (BUN)/cr eatinine ratioOrdered By: Lulu Moscoso on 03-02-2024 Blood urea nitrogen (BUN)/creatinine ratio 17.1 RATIO 10-20 [facility] Calcium [Mass/Vol]Ordered By : Lulu Moscoso on 03-02-2024 Serum or plasma calcium measurement (mass/volume) 8.6 mg/dL 8.5-10.1 [facility] Carbon dioxide measurementOr dered By: Lulu Moscoso on 03-02-2024 Carbon dioxide measurement 20.0 mmol/L Low 21.0-32.0 [facility] Chloride measurementOrdered By: Lulu Moscoso on 03-02-2024 Chloride measurement 111 mmol/L High 98-107 [facility] Clarity (U)Ordered By: Sofia Moscoso on 03-02-2024 Urine clarity Clear Clear [facility] Color (U)Ordered By: Naila Ly on 03-02-2024 Urine color determination Yellow Yellow [facility] Creatinine [Mass/Vol]Ordered By: Lulu Moscoso on 03-02-2024 Serum or plasma creatinine measurement (mass/volume) 0.64 mg/dL 0.55-1.02 [facility] Emergency Department Summary on 03-02-2024 Emergency Department Summary Normal [facility] Epithelial cells.squamous LM Ql (Urine sed)Ordered By: Lulu Moscoso on 03-02-2024 Squamous epithelial cells detection in urine sediment by light microscopy 0-5 SEEN /hpf 5-10 [facility] Estimated glomerular filtrat ion rate (GFR) AmericanOrdered By: Lulu Moscoso on 03-02-2024 Estimated glomerular filtration rate (GFR) 144 mL/min >60 [facility] Estimation of creatinine warner aranceOrdered By: Lulu Moscoso on 03-02-2024 Estimation of creatinine clearance 184.01 ml/min [facility] Glomerular filtration rate ( GFR) estimationOrdered By: Lulu Moscoso on 03-02-2024 Glomerular filtration rate (GFR) estimation 119 mL/min >60 [facility] Glucose measurementOrdered B y: Lulu Moscoso on 03-02-2024 Glucose measurement 77 mg/dL 74-106 [facility] Potassium measurementOrdered By: Lulu Moscoso on 03-02-2024 Potassium measurement 3.5 mmol/L 3.5-5.1 [facility] Serum anion gap measurementO rdered By: Lulu Moscoso on 03-02-2024 Serum anion gap measurement 9 5-15 [facility] Sodium levelOrdered By: Geovanny Moscoso on 03-02-2024 Sodium level 139 mmol/L 136-145 [facility] Specific gravity (U) [Rel de nsity]Ordered By: Lulu Moscoso on 03-02-2024 Urine specific gravity measurement 1.020 1.002-1.030 [facility] Urea nitrogen [Mass/Vol]Orde red By: Lulu Moscoso on 03-02-2024 Serum or plasma urea nitrogen measurement (mass/volume) 11 mg/dL 7-18 [facility] Urinalysis, Completeon 03-02 BACTERIA RARE Normal None Seen [facility] Comment on above: Order Comment: FAISAL CTOR TO SPECIFY Performed By: #### L 400.0001 ####[facility] [address] [place], [address] EPI,SQUAMOUS 0-5 SEEN Normal 5-10 [facility] Comment on above: Order Comment: FAISAL CTOR TO SPECIFY Performed By: #### L 400.0001 ####[facility] [address] [place], [address] Mucus Ql (Urine sed) 0 SEEN Normal [facility] Comment on above: Order Comment: FAISAL CTOR TO SPECIFY Performed By: #### L 400.0001 ####[facility] [address] [place], [address] RBC 0 SEEN Normal 0-5 [facility] Comment on above: Order Comment: FAISAL CTOR TO SPECIFY Performed By: #### L 400.0001 ####[facility] [address] [place], [address] WBC 0 SEEN Normal 0-5 [facility] Comment on above: Order Comment: FAISAL CTOR TO SPECIFY Performed By: #### L 400.0001 ####[facility] [address] [place], [address] Urine glucose detectionOrder ed By: Lulu Moscoso on 03-02-2024 Urine glucose detection Normal mg/dl Normal [facility] Urine total bilirubin detect ion by test stripOrdered By: Lulu Moscoso on 03-02-2024 Urine total bilirubin detection by test strip Negative Negative [facility] White blood cell countOrdere d By: Lulu Moscoso on 03-02-2024 White blood cell count 0 SEEN /hpf W [facility] pH (U)Ordered By: Lulu Moscoso on 03-02-2024 Urine pH 6.0 5.0 - 8.0 [facility] HbA1c (Bld) [Mass fraction]O rdered By: REGINA PEARSON on 02-28-2024 Hemoglobin A1c percentage 6.0 % High 3.8-5.6 [facility] Hemoglobin A1con 02-28-2024 HbA1c (Bld) [Mass fraction] 6.0 % High 3.8-5.6 [facility] Comment on above: Result Comment: Norm al < 5.7 % Prediabetic 5.7 - 6.4 % Diabetic >or= 6.5 % Please note range changes. Performed By: #### L 501.9985 ####[facility] [address] 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 She denies any complaints today. She denies fever/chills, cough, SOB, headache, bleeding, loss of fluid, UC/Cramping, abdominal pain. movement is present. Her blood glucose record was reviewed. Her insulin changed. Current dose is Lantus 50/42, Log 32/34/58, and Metformin 500mg at hs. ULTRASOUND FINDINGS: 1. Single, living IUP at 32w 4d by clinical PARAMJIT. 2. There is appropriate growth. The EFW is 1936 g at 41%. 3. Amniotic fluid volume appeared normal, 12.2 cm. 4. Placenta is normal without evidence of previa. 5. Visualized anatomy appears normal as noted above. 6. BPP was 8/8. Past Medical History: Past Medical History: Diagnosis Date Anxiety no medication Depression no medication Diabetes mellitus, type 2 Gallbladder disease affecting pt to have gallbladder removed after Migraine headache Obesity Uncomplicated asthma History reviewed. No pertinent surgical history. Medications: Outpatient Encounter Medications as of 02/28/2024 Medication Sig Dispense Refill fluticasone HFA 44 mcg inhaler inhale 2 (TWO) puff inhaled twice a day; administer with spacer insulin glargine (LANTUS) 100 UNIT/ML SOLN injection Inject 70-100 units SQ daily as directed. Current dose 42 units in am and 36 units at HS. (Patient taking differently: Inject 70-100 units SQ daily as directed. Current dose 46 units in am and 36 units at HS.) 30 mL 3 ondansetron (ZOFRAN-ODT) 4 MG disintegrating tablet metFORMIN (GLUCOPHAGE-XR) 500 MG ER tablet Take 1 Tablet (500 mg) by mouth nightly at bedtime 90 Tablet 2 Doxylamine Succinate, Sleep, (UNISOM PO) Take 25 mg by mouth nightly at bedtime promethazine (PHENERGAN) 25 MG tablet Take 1 Tablet (25 mg) by mouth 3 times daily MV & Min w/FA-DHA ( ADULT GUMMY/DHA/FA PO) Take 1 Tablet by mouth daily famotidine (PEPCID) 20 MG tablet Take 1 Tablet (20 mg) by mouth 2 times daily Insulin Lispro, 1 Unit Dial, (HUMALOG) 100 UNIT/ML SOPN Inject 0.15-0.3 mL (15-30 Units) into the skin 3 times daily (before meals) for 162 days (Patient taking differently: Inject 0.15-0.3 mL (15-30 Units) into the skin 3 times daily (before meals) Currently taking ) 27 mL 5 Continuous Glucose Sensor (DEXCOM G7 SENSOR) MISC 1 Each by Does not apply route every 10 days for 162 days 3 Each 5 Continuous Glucose Transfer Man (DEXCOM G7 SITE DIRECTOR) PARAM 1 Each by Does not apply route daily 1 Each 0 albuterol 108 (90 Base) MCG/ACT inhaler Inhale 2 Puffs into the lungs every 6 hours as needed fluticasone (FLONASE) 50 MCG/ACT nasal spray 2 Sprays by Does not apply route 2 times daily UNIFINE PENTIPS 29G X 12MM MISC use 1 new pen tip with each injection. lansoprazole (PREVACID) 15 MG capsule Take 2 Capsules (30 mg) by mouth daily Now takes 1 of the 30 mg capsules daily glycopyrrolate (ROBINUL) 2 MG tablet Take 1 Tablet (2 mg) by mouth daily Acetaminophen (TYLENOL PO) Take by mouth Prn for headaches glucose blood (ONE TOUCH ULTRA) test strip Use as directed to check blood sugar 200 Each 3 Alcohol Swabs (ALCOHOL PADS) Use to cleanse skin prior to insulin injection or checking blood sugar 200 Each 2 Lancets MISC Pt to check glucoses 4-7 times per day 200 Each 4 aspirin EC (ECOTRIN LOW STRENGTH) 81 MG EC tablet 81 mg po daily 90 Tablet 3 Magnesium Oxide (MAG OX) 400 (241.3 Mg) MG TABS tablet Take 1 Tablet (400 mg) by mouth daily for 180 days 90 Tablet 1 Blood Glucose Monitoring Suppl (ONE TOUCH ULTRA MINI) w/Device KIT Use as directed. 1 Kit 1 DexAMETHasone (DECADRON) 4 MG tablet TAKE 1 TABLET BY MOUTH ONCE DAILY. repeat dose on 02/01/2024 NEEDED No facility-administered encounter medications on file as of 02/28/2024. Allergies: Allergies Allergen Reactions Prednisone Anaphylaxis and Other (See Comments) Latex Swelling Cetirizine Swelling Metformin Nausea And Vomiting Norethin Yaya-Eth Estrad-Fe Other (See Comments) and Rash Family Medical History: Family History Problem Relation Age of Onset Diabetes Mother Heart Failure Mother Asthma Mother Arthritis Mother Diabetes Mellitus I Mother Miscarriages / Stillbirths Mother Sleep Apnea Mother Arthritis Father Colon Cancer Other Social History: Social History Socioeconomic History Marital status: Spouse name: None Number of children: None Years of education: None Highest education level: None Tobacco Use Smoking status: Never Smokeless tobacco: Never Substance and Sexual Activity Alcohol use: Not Currently Drug use: Never Physical Exam: Vitals Extended BP: 119/67 Weight - Scale: (!) 127.6 kg (281 lb 3.2 oz) (more content not included)... Normal [facility] OB Triage Progress Noteon OB Triage Progress Note Normal [facility] ALP [Catalytic activity/Vol] Ordered By: Anirudh De Los Santos on 02-24-2024 Serum or plasma alkaline phosphatase measurement 94 U/L 45-117 [facility] ALT [Catalytic activity/Vol] Ordered By: Anirudh De Los Santos on 02-24-2024 Serum or plasma alanine aminotransferase (ALT) measurement 19 U/L 13-56 [facility] Albumin [Mass/Vol]Ordered By : Anirudh De Los Santos on 02-24-2024 Serum or plasma albumin measurement (mass/volume) 2.3 g/dL Low 3.2-5.0 [facility] Albumin to globulin ratioOrd ered By: Anirudh Myrickmitra on 02-24-2024 Albumin to globulin ratio 0.5 RATIO Low 0.9-2.4 [facility] Bilirubin, totalOrdered By: Anirudh De Los Santos on 02-24-2024 Bilirubin, total 0.30 mg/dL 0.20-1.00 [facility] Blood urea nitrogen (BUN)/cr eatinine ratioOrdered By: Anirudh Rocco on 02-24-2024 Blood urea nitrogen (BUN)/creatinine ratio 17.0 RATIO 10-20 [facility] CBC-Complete Blood Cnt No Di ffon 02-24-2024 Erythrocyte distribution width (RBC) [Ratio] 14.1 % Normal 11.6-14.6 [facility] Comment on above: Performed By: #### L 100.0500, L500.4050, L501.0900, L501.1400 ####[facility] [address] [place], [address] Hematocrit (Bld) [Volume fraction] 36.5 % Low 37-47 [facility] Comment on above: Performed By: #### L 100.0500, L500.4050, L501.0900, L501.1400 ####[facility] [address] [place], [address] Hemoglobin (Bld) [Mass/Vol] 12.0 g/dL Normal 12.0-15.0 [facility] Comment on above: Performed By: #### L 100.0500, L500.4050, L501.0900, L501.1400 ####[facility] [address] [place], [address] MCH (RBC) [Entitic mass] 27.2 pg Normal 27.0-32.0 [facility] Comment on above: Performed By: #### L 100.0500, L500.4050, L501.0900, L501.1400 ####[facility] [address] [place], [address] MCHC (RBC) [Mass/Vol] 32.9 g/dL Normal 32-36 [facility] Comment on above: Performed By: #### L 100.0500, L500.4050, L501.0900, L501.1400 ####[facility] [address] [place], [address] MCV (RBC) [Entitic vol] 82.8 fL Normal 81-99 [facility] Comment on above: Performed By: #### L 100.0500, L500.4050, L501.0900, L501.1400 ####[facility] [address] [place], [address] Platelet mean volume (Bld) [Entitic vol] 11.2 fL Normal 6.2-12.0 [facility] Comment on above: Performed By: #### L 100.0500, L500.4050, L501.0900, L501.1400 ####[facility] [address] [place], [address] Platelets (Bld) [#/Vol] 239 10*3/uL Normal 150-450 [facility] Comment on above: Performed By: #### L 100.0500, L500.4050, L501.0900, L501.1400 ####[facility] [address] [place], [address] RBC (Bld) [#/Vol] 4.41 10*6/uL Normal 4.2-5.4 [facility] Comment on above: Performed By: #### L 100.0500, L500.4050, L501.0900, L501.1400 ####[facility] [address] [place], [address] RDW SD 41.8 fl Normal 35.1-43.9 [facility] Comment on above: Performed By: #### L 100.0500, L500.4050, L501.0900, L501.1400 ####[facility] [address] [place], [address] WBC (Bld) [#/Vol] 12.0 10*3/uL High 4.4-11.0 [facility] Comment on above: Performed By: #### L 100.0500, L500.4050, L501.0900, L501.1400 ####[facility] [address] [place], [address] Calcium [Mass/Vol]Ordered By : Anirudh De Los Santos on 02-24-2024 Serum or plasma calcium measurement (mass/volume) 8.9 mg/dL 8.5-10.1 [facility] Carbon dioxide measurementOr dered By: Anirudh De Los Santos on 02-24-2024 Carbon dioxide measurement 21.0 mmol/L 21.0-32.0 [facility] Chloride measurementOrdered By: Anirudh De Los Santos on 02-24-2024 Chloride measurement 111 mmol/L High 98-107 [facility] Comprehensive Metabolic Prof ilon 02-24-2024 Albumin [Mass/Vol] 2.3 g/dL Low 3.2-5.0 [facility] Comment on above: Performed By: #### L 100.0500, L500.4050, L501.0900, L501.1400 ####[facility] [address] [place], [address] Albumin/Globulin [Mass ratio] 0.5 {ratio} Low 0.9-2.4 [facility] Comment on above: Performed By: #### L 100.0500, L500.4050, L501.0900, L501.1400 ####[facility] [address] [place], [address] ALK P 94 U/L Normal 45-117 [facility] Comment on above: Performed By: #### L 100.0500, L500.4050, L501.0900, L501.1400 ####[facility] [address] [place], [address] ALT [Catalytic activity/Vol] 19 U/L Normal 13-56 [facility] Comment on above: Performed By: #### L 100.0500, L500.4050, L501.0900, L501.1400 ####[facility] [address] [place], [address] AST [Catalytic activity/Vol] 11 U/L Low 15-37 [facility] Comment on above: Performed By: #### L 100.0500, L500.4050, L501.0900, L501.1400 ####[facility] [address] [place], [address] Bilirubin [Mass/Vol] 0.30 mg/dL Normal 0.20-1.00 [facility] Comment on above: Result Comment: For patients on eltrombopag therapy, use of Dimension [place] TBIL is not recommended. Performed By: #### L 100.0500, L500.4050, L501.0900, L501.1400 ####[facility] [address] [place], [address] BUN/CRE 17.0 RATIO Normal 10-20 [facility] Comment on above: Performed By: #### L 100.0500, L500.4050, L501.0900, L501.1400 ####[facility] [address] [place], [address] CA,Total 8.9 mg/dL Normal 8.5-10.1 [facility] Comment on above: Performed By: #### L 100.0500, L500.4050, L501.0900, L501.1400 ####[facility] [address] [place], [address] Chloride [Moles/Vol] 111 mmol/L High 98-107 [facility] Comment on above: Performed By: #### L 100.0500, L500.4050, L501.0900, L501.1400 ####[facility] [address] [place], [address] CO2 [Moles/Vol] 21.0 mmol/L Normal 21.0-32.0 [facility] Comment on above: Performed By: #### L 100.0500, L500.4050, L501.0900, L501.1400 ####[facility] [address] [place], [address] Creatinine [Mass/Vol] 0.59 mg/dL Normal 0.55-1.02 [facility] Comment on above: Result Comment: The validity of the calculated GFR GFRAA in patients over70 years has not been determined. Clinical correlation isessential. Performed By: #### L 100.0500, L500.4050, L501.0900, L501.1400 ####[facility] [address] [place], [address] EST GFR - AA 160 mL/min Normal >60 [facility] Comment on above: Result Comment: Afri can Guinean GFR Calc Performed By: #### L 100.0500, L500.4050, L501.0900, L501.1400 ####[facility] [address] [place], [address] GAP 5 Normal 5-15 [facility] Comment on above: Performed By: #### L 100.0500, L500.4050, L501.0900, L501.1400 ####[facility] [address] [place], [address] GFR/1.73 sq M.predicted among non-blacks MDRD (S/P/Bld) [Vol rate/Area] 132 mL/min/{1.73_m2} Normal >60 [facility] Comment on above: Result Comment: Non- GFR Calc Performed By: #### L 100.0500, L500.4050, L501.0900, L501.1400 ####[facility] [address] [place], [address] Globulin (S) [Mass/Vol] 4.5 g/dL High 2.2-4.2 [facility] Comment on above: Performed By: #### L 100.0500, L500.4050, L501.0900, L501.1400 ####[facility] [address] [place], [address] Glucose [Mass/Vol] 122 mg/dL High 74-106 [facility] Comment on above: Result Comment: Fast ing Glucose result from 100 to 125 mg/dLsuggests IMPAIRED HOMEOSTASIS per A.D.A. criteria. Performed By: #### L 100.0500, L500.4050, L501.0900, L501.1400 ####[facility] [address] [place], [address] Potassium [Moles/Vol] 3.8 mmol/L Normal 3.5-5.1 [facility] Comment on above: Performed By: #### L 100.0500, L500.4050, L501.0900, L501.1400 ####[facility] [address] [place], [address] Sodium [Moles/Vol] 138 mmol/L Normal 136-145 [facility] Comment on above: Performed By: #### L 100.0500, L500.4050, L501.0900, L501.1400 ####[facility] [address] [place], [address] T PROT 6.8 g/dL Normal 6.4-8.2 [facility] Comment on above: Performed By: #### L 100.0500, L500.4050, L501.0900, L501.1400 ####[facility] [address] [place], [address] Urea nitrogen [Mass/Vol] 10 mg/dL Normal 7-18 [facility] Comment on above: Performed By: #### L 100.0500, L500.4050, L501.0900, L501.1400 ####[facility] [address] [place], [address] ALB Normal 3.2-5.0 [facility] Comment on above: Result Comment: MOVE D TO DIFFERENT REQ- SEE C72 Performed By: #### L 500.4050 ####[facility] [address] [place], [address] ALK P Normal 45-117 [facility] Comment on above: Result Comment: MOVE D TO DIFFERENT REQ- SEE C72 Performed By: #### L 500.4050 ####[facility] [address] [place], [address] ALT Normal 13-56 [facility] Comment on above: Result Comment: MOVE D TO DIFFERENT REQ- SEE C72 Performed By: #### L 500.4050 ####[facility] [address] [place], [address] AST Normal 15-37 [facility] Comment on above: Result Comment: MOVE D TO DIFFERENT REQ- SEE C72 Performed By: #### L 500.4050 ####[facility] [address] [place], [address] BUN Normal 7-18 [facility] Comment on above: Result Comment: MOVE D TO DIFFERENT REQ- SEE C72 Performed By: #### L 500.4050 ####[facility] [address] [place], [address] BUN/CRE Normal 10-20 [facility] Comment on above: Result Comment: MOVE D TO DIFFERENT REQ- SEE C72 Performed By: #### L 500.4050 ####[facility] [address] [place], [address] CA,Total Normal 8.5-10.1 [facility] Comment on above: Result Comment: MOVE D TO DIFFERENT REQ- SEE C72 Performed By: #### L 500.4050 ####[facility] [address] [place], [address] CL Normal 98-107 [facility] Comment on above: Result Comment: MOVE D TO DIFFERENT REQ- SEE C72 Performed By: #### L 500.4050 ####[facility] [address] [place], [address] CO2 Normal 21.0-32.0 [facility] Comment on above: Result Comment: MOVE D TO DIFFERENT REQ- SEE C72 Performed By: #### L 500.4050 ####[facility] [address] [place], [address] CREAT,SERUM Normal 0.55-1.02 [facility] Comment on above: Result Comment: MOVE D TO DIFFERENT REQ- SEE C72 Performed By: #### L 500.4050 ####[facility] [address] [place], [address] EST GFR Normal >60 [facility] Comment on above: Result Comment: MOVE D TO DIFFERENT REQ- SEE C72 Performed By: #### L 500.4050 ####[facility] [address] [place], [address] EST GFR - AA Normal >60 [facility] Comment on above: Result Comment: MOVE D TO DIFFERENT REQ- SEE C72 Performed By: #### L 500.4050 ####[facility] [address] [place], [address] GAP Normal 5-15 [facility] Comment on above: Result Comment: MOVE D TO DIFFERENT REQ- SEE C72 Performed By: #### L 500.4050 ####[facility] [address] [place], [address] GLU Normal 74-106 [facility] Comment on above: Result Comment: MOVE D TO DIFFERENT REQ- SEE C72 Performed By: #### L 500.4050 ####[facility] [address] [place], [address] Potassium Normal 3.5-5.1 [facility] Comment on above: Result Comment: MOVE D TO DIFFERENT REQ- SEE C72 Performed By: #### L 500.4050 ####[facility] [address] [place], [address] T BILI Normal 0.20-1.00 [facility] Comment on above: Result Comment: MOVE D TO DIFFERENT REQ- SEE C72 Performed By: #### L 500.4050 ####[facility] [address] [place], [address] T PROT Normal 6.4-8.2 [facility] Comment on above: Result Comment: MOVE D TO DIFFERENT REQ- SEE C72 Performed By: #### L 500.4050 ####[facility] [address] [place], [address] Comprehensive Metabolic Profil Normal 136-145 [facility] Comment on above: Result Comment: MOVE D TO DIFFERENT REQ- SEE C72 Performed By: #### L 500.4050 ####[facility] [address] [place], [address] Creatinine (U) [Mass/Vol]Ord ered By: Anirudh De Los Santos on 02-24-2024 Urine creatinine measurement (mass/volume) 243.00 mg/dL NO RANGE EST. [facility] Creatinine [Mass/Vol]Ordered By: Anirudh De Los Santos on 02-24-2024 Serum or plasma creatinine measurement (mass/volume) 0.59 mg/dL 0.55-1.02 [facility] Erythrocyte distribution wid th (RBC) [Entitic vol]Ordered By: Anirudh De Los Santos on 02-24-2024 Erythrocyte distribution width standard deviation 41.8 fl 35.1-43.9 [facility] Erythrocyte distribution wid th (RBC) [Ratio]Ordered By: Anirudh De Los Santos on 02-24-2024 Erythrocyte distribution width ratio 14.1 % 11.6-14.6 [facility] Estimated glomerular filtrat ion rate (GFR) AmericanOrdered By: Anirudh De Los Santos on 02-24-2024 Estimated glomerular filtration rate (GFR) 160 mL/min >60 [facility] Glomerular filtration rate ( GFR) estimationOrdered By: Anirudh De Los Santos on 02-24-2024 Glomerular filtration rate (GFR) estimation 132 mL/min >60 [facility] Glucose measurementOrdered B y: Anirudh De Los Santos on 02-24-2024 Glucose measurement 122 mg/dL High 74-106 [facility] Hematocrit Auto (Bld) [Volum e fraction]Ordered By: Anirudh De Los Santos on 02-24-2024 Automated blood hematocrit (percentage) 36.5 % Low 37-47 [facility] Hemoglobin measurementOrdere d By: Anirudh De Los Santos on 02-24-2024 Hemoglobin measurement 12.0 g/dL 12.0-15.0 [facility] MCV (RBC) [Entitic vol]Order ed By: Anirudh De Los Santos on 02-24-2024 MCV (mean corpuscular volume) determination 82.8 fL 81-99 [facility] Mean corpuscular hemoglobin (MCH) determinationOrdered By: Anirudh De Los Santos on 02-24-2024 Mean corpuscular hemoglobin (MCH) determination 27.2 pg 27.0-32.0 [facility] Mean corpuscular hemoglobin concentration (MCHC) determinationOrdered By: Anirudh De Los Santos on 02-24-2024 Mean corpuscular hemoglobin concentration (MCHC) determination 32.9 g/dL 32-36 [facility] Mean platelet volume determi nationOrdered By: Anirudh De Los Santos on 02-24-2024 Mean platelet volume determination 11.2 fl 6.2-12.0 [facility] No Panel InformationOrdered By: Anirudh De Los Santos on 02-24-2024 11 U/L Low 15-37 [facility] Platelet countOrdered By: Sahra De Los Santos on 02-24-2024 Platelet count 239 K/mm3 150-450 [facility] Potassium measurementOrdered By: Anirudh De Los Santos on 02-24-2024 Potassium measurement 3.8 mmol/L 3.5-5.1 [facility] Protein+Creatinine Ratio,Uri neon 02-24-2024 PROT:CRE RATIO 158 mg/g CRE Normal 0-200 [facility] Comment on above: Performed By: #### L 100.0500, L500.4050, L501.0900, L501.1400 ####[facility] [address] [place], [address] Protein (U) [Mass/Vol] 38.4 mg/dL High <11.9 [facility] Comment on above: Performed By: #### L 100.0500, L500.4050, L501.0900, L501.1400 ####[facility] [address] [place], [address] UR CREAT 243.00 mg/dL Normal NO RANGE EST. [facility] Comment on above: Performed By: #### L 100.0500, L500.4050, L501.0900, L501.1400 ####[facility] [address] [place], [address] Protein/Creatinine (U) [Mass ratio]Ordered By: Anirudh De Los Santos on 02-24-2024 Urine protein/creatinine mass ratio 158 mg/g CRE 0-200 [facility] RBC Auto (Bld) [#/Vol]Ordere d By: Anriudh De Los Santos on 02-24-2024 Automated blood erythrocyte count 4.41 M/mm3 4.2-5.4 [facility] Random urine protein measure mentOrdered By: Anirudh De Los Santos on 02-24-2024 Random urine protein measurement 38.4 mg/dL High 0.0-11.8 [facility] Serum anion gap measurementO rdered By: Anirudh De Los Santos on 02-24-2024 Serum anion gap measurement 5 5-15 [facility] Serum globulin measurementOr dered By: Anirudh Diazbeverley on 02-24-2024 Serum globulin measurement 4.5 g/dL High 2.2-4.2 [facility] Sodium levelOrdered By: Lokesh ochoa Rocco on 02-24-2024 Sodium level 138 mmol/L 136-145 [facility] Total proteinOrdered By: Tip De Los Santos on 02-24-2024 Total protein 6.8 g/dL 6.4-8.2 [facility] Urate [Mass/Vol]Ordered By: Anirudh De Los Santos on 02-24-2024 Serum or plasma uric acid measurement (mass/volume) 3.8 mg/dL 2.6-6.0 [facility] Urea nitrogen [Mass/Vol]Orde red By: Anirudh De Los Santos on 02-24-2024 Serum or plasma urea nitrogen measurement (mass/volume) 10 mg/dL 7-18 [facility] Uric Acidon 02-24-2024 URIC 3.8 mg/dL Normal 2.6-6.0 [facility] Comment on above: Result Comment: The drugs N-Acetylcysteine and Metamizole may falselydepress this assay. Performed By: #### L 100.0500, L500.4050, L501.0900, L501.1400 ####[facility] [address] [place], [place], [id number] White blood cell (WBC) count Ordered By: Anirudh De Los Santos on 02-24-2024 White blood cell (WBC) count 12.0 K/mm3 High 4.4-11.0 [facility] Urine Cultureon 02-23-2024 URC Mixed Gram Positive Organisms [place] Count 80,000-100,000 [facility] Mixed contaminants. Submit a new specimen if indicated. Normal [facility] Comment on above: Performed By: #### M 100.2200 ####[facility] [address] [facility] [address] [place], [place], [id number] ALP [Catalytic activity/Vol] Ordered By: Best Gudino on 02-22-2024 Serum or plasma alkaline phosphatase measurement 107 U/L 45-117 [facility] ALT [Catalytic activity/Vol] Ordered By: Best Gudino on 02-22-2024 Serum or plasma alanine aminotransferase (ALT) measurement 19 U/L 13-56 [facility] Albumin [Mass/Vol]Ordered By : Best Gudino on 02-22-2024 Serum or plasma albumin measurement (mass/volume) 2.6 g/dL Low 3.2-5.0 [facility] Albumin to globulin ratioOrd ered By: Best Gudino on 02-22-2024 Albumin to globulin ratio 0.6 RATIO Low 0.9-2.4 [facility] Bilirubin, totalOrdered By: Best Gudino on 02-22-2024 Bilirubin, total 0.40 mg/dL 0.20-1.00 [facility] Blood urea nitrogen (BUN)/cr eatinine ratioOrdered By: Best Gudino on 02-22-2024 Blood urea nitrogen (BUN)/creatinine ratio 11.0 RATIO 10-20 [facility] CBC-Complete Blood Cnt No Di ffon 02-22-2024 Erythrocyte distribution width (RBC) [Ratio] 14.2 % Normal 11.6-14.6 [facility] Comment on above: Performed By: #### L 100.0500, L501.1400 ####[facility] [address] [facility] [place], [address] Hematocrit (Bld) [Volume fraction] 39.2 % Normal 37-47 [facility] Comment on above: Performed By: #### L 100.0500, L501.1400 ####[facility] [address] [place], [address] Hemoglobin (Bld) [Mass/Vol] 12.6 g/dL Normal 12.0-15.0 [facility] Comment on above: Performed By: #### L 100.0500, L501.1400 ####[facility] [address] [facility] [place], [address] MCH (RBC) [Entitic mass] 26.9 pg Low 27.0-32.0 [facility] Comment on above: Performed By: #### L 100.0500, L501.1400 ####[facility] [address] [place], [address] MCHC (RBC) [Mass/Vol] 32.1 g/dL Normal 32-36 [facility] Comment on above: Performed By: #### L 100.0500, L501.1400 ####[facility] [address] [place], [address] MCV (RBC) [Entitic vol] 83.8 fL Normal 81-99 [facility] Comment on above: Performed By: #### L 100.0500, L501.1400 ####[facility] [address] [place], [address] Platelet mean volume (Bld) [Entitic vol] 11.2 fL Normal 6.2-12.0 [facility] Comment on above: Performed By: #### L 100.0500, L501.1400 ####[facility] [address] [place], [address] Platelets (Bld) [#/Vol] 256 10*3/uL Normal 150-450 [facility] Comment on above: Performed By: #### L 100.0500, L501.1400 ####[facility] [address] [place], [address] RBC (Bld) [#/Vol] 4.68 10*6/uL Normal 4.2-5.4 [facility] Comment on above: Performed By: #### L 100.0500, L501.1400 ####[facility] [address] [place], [address] RDW SD 42.8 fl Normal 35.1-43.9 [facility] Comment on above: Performed By: #### L 100.0500, L501.1400 ####[facility] [address] [place], [address] WBC (Bld) [#/Vol] 13.9 10*3/uL High 4.4-11.0 [facility] Comment on above: Performed By: #### L 100.0500, L501.1400 ####[facility] [address] [place], [address] Calcium [Mass/Vol]Ordered By : Best Gudino on 02-22-2024 Serum or plasma calcium measurement (mass/volume) 8.9 mg/dL 8.5-10.1 [facility] Carbon dioxide measurementOr dered By: Best Gudino on 02-22-2024 Carbon dioxide measurement 19.0 mmol/L Low 21.0-32.0 [facility] Chloride measurementOrdered By: Best Gudino on 02-22-2024 Chloride measurement 110 mmol/L High 98-107 [facility] Clarity (U)Ordered By: Best Gudino on 02-22-2024 Urine clarity Clear Clear [facility] Color (U)Ordered By: Best Gudino on 02-22-2024 Urine color determination Yellow Yellow [facility] Comprehensive Metabolic Prof ilon 02-22-2024 Albumin [Mass/Vol] 2.6 g/dL Low 3.2-5.0 [facility] Comment on above: Performed By: #### L 500.4050 ####[facility] [address] [place], [address] Albumin/Globulin [Mass ratio] 0.6 {ratio} Low 0.9-2.4 [facility] Comment on above: Performed By: #### L 500.4050 ####[facility] [address] [place], [address] ALK P 107 U/L Normal 45-117 [facility] Comment on above: Performed By: #### L 500.4050 ####[facility] [address] [place], [address] ALT [Catalytic activity/Vol] 19 U/L Normal 13-56 [facility] Comment on above: Performed By: #### L 500.4050 ####[facility] [address] [place], [address] AST [Catalytic activity/Vol] 10 U/L Low 15-37 [facility] Comment on above: Performed By: #### L 500.4050 ####[facility] [address] [place], [address] Bilirubin [Mass/Vol] 0.40 mg/dL Normal 0.20-1.00 [facility] Comment on above: Result Comment: For patients on eltrombopag therapy, use of Dimension [place] TBIL is not recommended. Performed By: #### L 500.4050 ####[facility] [address] [place], [address] BUN/CRE 11.0 RATIO Normal 10-20 [facility] Comment on above: Performed By: #### L 500.4050 ####[facility] [address] [place], [address] CA,Total 8.9 mg/dL Normal 8.5-10.1 [facility] Comment on above: Performed By: #### L 500.4050 ####[facility] [address] [place], [address] Chloride [Moles/Vol] 110 mmol/L High 98-107 [facility] Comment on above: Performed By: #### L 500.4050 ####[facility] [address] [place], [address] CO2 [Moles/Vol] 19.0 mmol/L Low 21.0-32.0 [facility] Comment on above: Performed By: #### L 500.4050 ####[facility] [address] [place], [address] Creatinine [Mass/Vol] 0.73 mg/dL Normal 0.55-1.02 [facility] Comment on above: Result Comment: The validity of the calculated GFR GFRAA in patients over70 years has not been determined. Clinical correlation isessential. Performed By: #### L 500.4050 ####[facility] [address] [place], [address] ECRCL 159.74 ml/min Normal [facility] Comment on above: Performed By: #### L 500.4050 ####[facility] [address] [place], [address] EST GFR - AA 125 mL/min Normal >60 [facility] Comment on above: Result Comment: Afri can Guinean GFR Calc Performed By: #### L 500.4050 ####[facility] [address] [place], [address] GAP 8 Normal 5-15 [facility] Comment on above: Performed By: #### L 500.4050 ####[facility] [address] [place], [address] GFR/1.73 sq M.predicted among non-blacks MDRD (S/P/Bld) [Vol rate/Area] 104 mL/min/{1.73_m2} Normal >60 [facility] Comment on above: Result Comment: Non- GFR Calc Performed By: #### L 500.4050 ####[facility] [address] [place], [address] Globulin (S) [Mass/Vol] 4.5 g/dL High 2.2-4.2 [facility] Comment on above: Performed By: #### L 500.4050 ####[facility] [address] [place], [address] Glucose [Mass/Vol] 216 mg/dL High 74-106 [facility] Comment on above: Result Comment: Gluc ose result greater than or equal to 200 mg/dLsuggests DIABETES MELLITUS per A.D.A. criteria. Performed By: #### L 500.4050 ####[facility] [address] [place], [address] Potassium [Moles/Vol] 3.8 mmol/L Normal 3.5-5.1 [facility] Comment on above: Performed By: #### L 500.4050 ####[facility] [address] [place], [address] Sodium [Moles/Vol] 137 mmol/L Normal 136-145 [facility] Comment on above: Performed By: #### L 500.4050 ####[facility] [address] [place], [address] T PROT 7.1 g/dL Normal 6.4-8.2 [facility] Comment on above: Performed By: #### L 500.4050 ####[facility] [address] [place], [address] Urea nitrogen [Mass/Vol] 8 mg/dL Normal 7-18 [facility] Comment on above: Performed By: #### L 500.4050 ####[facility] [address] [place], [address] Creatinine (U) [Mass/Vol]Ord ered By: Best Gudino on 02-22-2024 Urine creatinine measurement (mass/volume) 230.00 mg/dL NO RANGE EST. [facility] Creatinine [Mass/Vol]Ordered By: Best Gudino on 02-22-2024 Serum or plasma creatinine measurement (mass/volume) 0.73 mg/dL 0.55-1.02 [facility] Emergency Department Summary on 02-22-2024 Emergency Department Summary Normal [facility] Erythrocyte distribution wid th (RBC) [Entitic vol]Ordered By: Best Gudino on 02-22-2024 Erythrocyte distribution width standard deviation 42.8 fl 35.1-43.9 [facility] Erythrocyte distribution wid th (RBC) [Ratio]Ordered By: Best Gudino on 02-22-2024 Erythrocyte distribution width ratio 14.2 % 11.6-14.6 [facility] Estimated glomerular filtrat ion rate (GFR) AmericanOrdered By: Best Gudino on 02-22-2024 Estimated glomerular filtration rate (GFR) 125 mL/min >60 [facility] Estimation of creatinine warner aranceOrdered By: Best Gudino on 02-22-2024 Estimation of creatinine clearance 159.74 ml/min [facility] Glomerular filtration rate ( GFR) estimationOrdered By: Best Gudino on 02-22-2024 Glomerular filtration rate (GFR) estimation 104 mL/min >60 [facility] Glucose Ql (U)Ordered By: Dipak Gudino on 02-22-2024 Urine glucose detection 1000 mg/dl High Normal [facility] Glucose measurementOrdered B y: Best Gudino on 02-22-2024 Glucose measurement 216 mg/dL High 74-106 [facility] Hematocrit Auto (Bld) [Volum e fraction]Ordered By: Best Gudino on 02-22-2024 Automated blood hematocrit (percentage) 39.2 % 37-47 [facility] Hemoglobin measurementOrdere d By: Best Gudino on 02-22-2024 Hemoglobin measurement 12.6 g/dL 12.0-15.0 [facility] Internal Medicine Office Vis iton 02-22-2024 Internal Medicine Office Visit Normal [facility] Ketones Test strip Ql (U)Ord ered By: Best Gudino on 02-22-2024 Urine ketones detection by test strip 5 mg/dl High Negative [facility] Leukocyte esterase Test stri p Ql (U)Ordered By: Best Gudino on 02-22-2024 Urine leukocyte esterase detection by dipstick 100 /ul High Negative [facility] MCV (RBC) [Entitic vol]Order ed By: Best Gudino on 02-22-2024 MCV (mean corpuscular volume) determination 83.8 fL 81-99 [facility] Mean corpuscular hemoglobin (MCH) determinationOrdered By: Best Gudino on 02-22-2024 Mean corpuscular hemoglobin (MCH) determination 26.9 pg Low 27.0-32.0 [facility] Mean corpuscular hemoglobin concentration (MCHC) determinationOrdered By: Best Gudino on 02-22-2024 Mean corpuscular hemoglobin concentration (MCHC) determination 32.1 g/dL 32-36 [facility] Mean platelet volume determi nationOrdered By: Best Gudino on 02-22-2024 Mean platelet volume determination 11.2 fl 6.2-12.0 [facility] Microscopic analysis of urin e for red blood cells (RBC)Ordered By: Best Gudino on 02-22-2024 Microscopic analysis of urine for red blood cells (RBC) 5-10 SEEN /hpf 0-5 [facility] Mucus LM Ql (Urine sed)Order ed By: Best Gudino on 02-22-2024 Mucus detection in urine sediment by light microscopy 1+ /hpf [facility] No Panel InformationOrdered By: Best Gudino on 02-22-2024 10 U/L Low 15-37 [facility] Platelet countOrdered By: Dipak Gudino on 02-22-2024 Platelet count 256 K/mm3 150-450 [facility] Potassium measurementOrdered By: Best Gudino on 02-22-2024 Potassium measurement 3.8 mmol/L 3.5-5.1 [facility] Protein Test strip Ql (U)Ord ered By: Best Gudino on 02-22-2024 Urine protein assay by test strip, semi-quantitative 30 mg/dl High Negative [facility] Protein+Creatinine Ratio,Uri neon 02-22-2024 PROT:CRE RATIO 111 mg/g CRE Normal 0-200 [facility] Comment on above: Performed By: #### L 501.0900 ####[facility] [address] [facility] [place], [address] Protein (U) [Mass/Vol] 25.5 mg/dL High <11.9 [facility] Comment on above: Performed By: #### L 501.0900 ####[facility] [address] [place], [address] UR CREAT 230.00 mg/dL Normal NO RANGE EST. [facility] Comment on above: Performed By: #### L 501.0900 ####[facility] [address] [place], [address] Protein/Creatinine (U) [Mass ratio]Ordered By: Best Gudino on 02-22-2024 Urine protein/creatinine mass ratio 111 mg/g CRE 0-200 [facility] RBC Auto (Bld) [#/Vol]Ordere d By: Best Gudino on 02-22-2024 Automated blood erythrocyte count 4.68 M/mm3 4.2-5.4 [facility] Random urine protein measure mentOrdered By: Best Gudino on 02-22-2024 Random urine protein measurement 25.5 mg/dL High 0.0-11.8 [facility] Serum anion gap measurementO rdered By: Best Gudino on 02-22-2024 Serum anion gap measurement 8 5-15 [facility] Serum globulin measurementOr dered By: Best Gudino on 02-22-2024 Serum globulin measurement 4.5 g/dL High 2.2-4.2 [facility] Sodium levelOrdered By: Best Gudino on 02-22-2024 Sodium level 137 mmol/L 136-145 [facility] Specific gravity (U) [Rel de nsity]Ordered By: Best Gudino on 02-22-2024 Urine specific gravity measurement 1.025 1.002-1.030 [facility] Total proteinOrdered By: Gregory Gudino on 02-22-2024 Total protein 7.1 g/dL 6.4-8.2 [facility] Urate [Mass/Vol]Ordered By: Best Gudino on 02-22-2024 Serum or plasma uric acid measurement (mass/volume) 4.4 mg/dL 2.6-6.0 [facility] Urea nitrogen [Mass/Vol]Orde red By: Best Gudino on 02-22-2024 Serum or plasma urea nitrogen measurement (mass/volume) 8 mg/dL 7-18 [facility] Uric Acidon 02-22-2024 URIC 4.4 mg/dL Normal 2.6-6.0 [facility] Comment on above: Result Comment: The drugs N-Acetylcysteine and Metamizole may falselydepress this assay. Performed By: #### L 100.0500, L501.1400 ####[facility] [address] [place], [place], [id number] Urinalysis, Completeon 02-21 CA OX CRYSTAL 2+ /hpf Normal [facility] Comment on above: Order Comment: COLLE CTOR TO SPECIFY Performed By: #### L 400.0001 ####[facility] [address] [place], [address] BACTERIA 2+ /hpf Normal None Seen [facility] Comment on above: Order Comment: FAISAL CTOR TO SPECIFY Performed By: #### L 400.0001 ####[facility] [address] [place], [address] EPI,SQUAMOUS 50-100 SEEN Normal 5-10 [facility] Comment on above: Order Comment: FAISAL CTOR TO SPECIFY Performed By: #### L 400.0001 ####[facility] [address] [place], [address] Mucus Ql (Urine sed) 1+ /hpf Normal [facility] Comment on above: Order Comment: FAISAL CTOR TO SPECIFY Performed By: #### L 400.0001 ####[facility] [address] [place], [address] RBC 5-10 SEEN Normal 0-5 [facility] Comment on above: Order Comment: FAISAL CTOR TO SPECIFY Performed By: #### L 400.0001 ####[facility] [address] [place], [address] WBC 50-100 SEEN Normal 0-5 [facility] Comment on above: Order Comment: FAISAL CTOR TO SPECIFY Performed By: #### L 400.0001 ####[facility] [address] [place], [address] BILIRUBIN URINE Negative Normal Negative [facility] Comment on above: Order Comment: FAISAL CTOR TO SPECIFY Performed By: #### L 400.0001 ####[facility] [address] [place], [address] Clarity (U) Clear Normal Clear [facility] Comment on above: Order Comment: FAISAL CTOR TO SPECIFY Performed By: #### L 400.0001 ####[facility] [address] [place], [address] Color (U) Yellow Normal Yellow [facility] Comment on above: Order Comment: FAISAL CTOR TO SPECIFY Performed By: #### L 400.0001 ####[facility] [address] [place], [address] GLUCOSE, UR 1000 mg/dl Abnormal Normal [facility] Comment on above: Order Comment: FAISAL CTOR TO SPECIFY Performed By: #### L 400.0001 ####[facility] [address] [place], [address] KETONE UR 5 mg/dl Abnormal Negative [facility] Comment on above: Order Comment: FAISAL CTOR TO SPECIFY Performed By: #### L 400.0001 ####[facility] [address] [place], [address] LEUK ESTERASE 100 /ul Abnormal Negative [facility] Comment on above: Order Comment: FAISAL CTOR TO SPECIFY Performed By: #### L 400.0001 ####[facility] [address] [place], [address] Nitrite Ql (U) Negative Normal Negative [facility] Comment on above: Order Comment: FAISAL CTOR TO SPECIFY Performed By: #### L 400.0001 ####[facility] [address] [place], [address] OCCULT BLOOD-UR Negative Normal Negative [facility] Comment on above: Order Comment: FAISAL CTOR TO SPECIFY Performed By: #### L 400.0001 ####[facility] [address] [place], [address] pH UR 6.0 Normal 5.0 - 8.0 [facility] Comment on above: Order Comment: FAISAL CTOR TO SPECIFY Performed By: #### L 400.0001 ####[facility] [address] [place], [address] PROT DIPSTX 30 mg/dl Abnormal Negative [facility] Comment on above: Order Comment: FAISAL CTOR TO SPECIFY Performed By: #### L 400.0001 ####[facility] [address] [place], [address] SP.GR. DIPSTX 1.025 Normal 1.002-1.030 [facility] Comment on above: Order Comment: FAISAL CTOR TO SPECIFY Performed By: #### L 400.0001 ####[facility] [address] [place], [address] UROBILI 1 mg/dl Abnormal Normal [facility] Comment on above: Order Comment: FAISAL CTOR TO SPECIFY Performed By: #### L 400.0001 ####[facility] [address] [place], [place], [id number] Urine sediment bacteria coun t by microscopy (number/high power field)Ordered By: Best Gudino on 02-22-2024 Urine sediment bacteria count by microscopy (number/high power field) 2+ /hpf [facility] Urine total bilirubin detect ion by test stripOrdered By: Best Gudino on 02-22-2024 Urine total bilirubin detection by test strip Negative Negative [facility] Urobilinogen Ql (U)Ordered B y: Best Gudino on 02-22-2024 Urine urobilinogen measurement 1 mg/dl High Normal [facility] White blood cell (WBC) count Ordered By: Best Gudino on 02-22-2024 White blood cell (WBC) count 13.9 K/mm3 High 4.4-11.0 [facility] White blood cell countOrdere d By: Best Gudino on 02-22-2024 White blood cell count 50-100 SEEN /hpf 5-10 [facility] pH (U)Ordered By: Best Gudino on 02-22-2024 Urine pH 6.0 5.0 - 8.0 [facility] Urine cultureOrdered By: Gregory Gudino on 02-21-2024 Urine culture Positive Abnormal [facility] No Panel Informationon 02-15 Negative [facility] Admitting Coordinator Office Visit Reporton 02-16-2024 Admitting Coordinator Office Visit Report Normal [facility] Progress Noteon 02-14-2024 Pull Worker Authentication Interface Message Text Comanage PregestationalDiabetes Mellitus Fred Melgoza is seen at 30w4d for comanagement of Pregestational Diabetes Mellitus.She complains of on-going but improving URI sx. Ribs sore from non productive cough . Her blood glucose record was reviewed. Her insulin changed. Current dose is Lantus 42 Units before breakfast, Lantus 36 Units at 10pm, Humalog/Novalog 32 units before breakfast, Humalog/Novalog 34 units before lunch, Humalog/Novalog 52 units before dinner, and Metformin 500units at bedtime. History of Presenting Problem: She is accompanied by her significant other. Pregestational Diabetes Fred presents today for her comanage visit. She has type 2 diabetes. The disease course is fluctuating. Hyper/Hypoglycemia complications include required simple CHO. Current treatments include diet, insulin injections and oral agent (monotherapy). She is compliant with treatment most of the time. Blood glucose readings reviewed. Readings are as follows: pp lunch(going into lunch above 100) and dinner elevations. Exercise: tries daily walk. Past Medical History: Past Medical History: Diagnosis Date Anxiety no medication Depression no medication Diabetes mellitus, type 2 Gallbladder disease affecting pt to have gallbladder removed after Migraine headache Obesity Uncomplicated asthma History reviewed. No pertinent surgical history. Medications: Outpatient Encounter Medications as of 02/14/2024 Medication Sig Dispense Refill fluticasone HFA 44 mcg inhaler inhale 2 (TWO) puff inhaled twice a day; administer with spacer ondansetron (ZOFRAN-ODT) 4 MG disintegrating tablet metFORMIN (GLUCOPHAGE-XR) 500 MG ER tablet Take 1 Tablet (500 mg) by mouth nightly at bedtime 90 Tablet 2 Doxylamine Succinate, Sleep, (UNISOM PO) Take 25 mg by mouth nightly at bedtime promethazine (PHENERGAN) 25 MG tablet Take 1 Tablet (25 mg) by mouth 3 times daily MV & Min w/FA-DHA ( ADULT GUMMY/DHA/FA PO) Take 1 Tablet by mouth daily [DISCONTINUED] insulin glargine (LANTUS) 100 UNIT/ML SOLN injection Inject 20-50 units SQ daily as directed (Patient taking differently: Inject 20-50 units SQ daily as directed Currently taking 38 units in the morning and 36 units at bedtime.) 15 mL 5 famotidine (PEPCID) 20 MG tablet Take 1 Tablet (20 mg) by mouth 2 times daily Insulin Lispro, 1 Unit Dial, (HUMALOG) 100 UNIT/ML SOPN Inject 0.15-0.3 mL (15-30 Units) into the skin 3 times daily (before meals) for 162 days (Patient taking differently: Inject 0.15-0.3 mL (15-30 Units) into the skin 3 times daily (before meals) Currently taking 32/34/38) 27 mL 5 Continuous Glucose Sensor (DEXCOM G7 SENSOR) MISC 1 Each by Does not apply route every 10 days for 162 days 3 Each 5 Continuous Glucose Transfer Man (DEXCOM G7 SITE DIRECTOR) PARAM 1 Each by Does not apply route daily 1 Each 0 albuterol 108 (90 Base) MCG/ACT inhaler Inhale 2 Puffs into the lungs every 6 hours as needed fluticasone (FLONASE) 50 MCG/ACT nasal spray 2 Sprays by Does not apply route 2 times daily UNIFINE PENTIPS 29G X 12MM MISC use 1 new pen tip with each injection. lansoprazole (PREVACID) 15 MG capsule Take 1 Capsule (15 mg) by mouth daily glycopyrrolate (ROBINUL) 2 MG tablet Take 1 Tablet (2 mg) by mouth daily Acetaminophen (TYLENOL PO) Take by mouth Prn for headaches glucose blood (ONE TOUCH ULTRA) test strip Use as directed to check blood sugar 200 Each 3 Alcohol Swabs (ALCOHOL PADS) Use to cleanse skin prior to insulin injection or checking blood sugar 200 Each 2 Lancets MISC Pt to check glucoses 4-7 times per day 200 Each 4 aspirin EC (ECOTRIN LOW STRENGTH) 81 MG EC tablet 81 mg po daily 90 Tablet 3 Magnesium Oxide (MAG OX) 400 (241.3 Mg) MG TABS tablet Take 1 Tablet (400 mg) by mouth daily for 180 days 90 Tablet 1 Blood Glucose Monitoring Suppl (ONE TOUCH ULTRA MINI) w/Device KIT Use as directed. 1 Kit 1 insulin glargine (LANTUS) 100 UNIT/ML SOLN injection Inject 70-100 units SQ daily as directed. Current dose 42 units in am and 36 units at HS. 30 mL 3 DexAMETHasone (DECADRON) 4 MG tablet TAKE 1 TABLET BY MOUTH ONCE DAILY. repeat dose on 02/01/2024 NEEDED No facility-administered encounter medications on file as of 02/14/2024. Allergies: Allergies Allergen Reactions Prednisone Anaphylaxis and Other (See Comments) Latex Swelling Cetirizine Swelling Metformin Nausea And Vomiting Norethin Yaya-Eth Estrad-Fe Other (See Comments) and Rash Family Medical History: Family History Problem Relation Age of Onset Diabetes Mother Heart Failure Mother Asthma Mother Arthritis Mother Diabetes Mellitus I Mother Miscarriages / Stillbirths Mother Sleep Apnea Mother Arthritis Father Colon Cancer Other Social History: Social History Socioeconomic History Marital status: Spouse name: None Number of children: None Years of education: None Highest education level: Non (more content not included)... Normal [facility] Absolute neutrophil countOrd ered By: Amber Ram on 02-02-2024 Absolute neutrophil count 7.6 X10^3/uL 2.0-7.7 [facility] Basophil percentageOrdered B y: Amber Ram on 02-02-2024 Basophil percentage 0.2 % 0-1 [facility] CBC W/Diff, Automatedon 01-07 Absolute Lymph 3.89 X10 3/uL Normal 0.83-4.51 [facility] Comment on above: Performed By: #### L 509.8000, L3890.6005, L100.0100, BTS ####[facility] [address] [place], [address] Absolute Neut 7.6 X10 3/uL Normal 2.0-7.7 [facility] Comment on above: Performed By: #### L 509.8000, L3890.6005, L100.0100, BTS ####[facility] [address] [place], [address] Basophils/100 WBC (Bld) 0.2 % Normal 0-1 [facility] Comment on above: Performed By: #### L 509.8000, L3890.6005, L100.0100, BTS ####[facility] [address] [place], [address] Eosinophils/100 WBC (Bld) 0.8 % Normal 0-5 [facility] Comment on above: Performed By: #### L 509.8000, L3890.6005, L100.0100, BTS ####[facility] [address] [place], [address] Erythrocyte distribution width (RBC) [Ratio] 13.4 % Normal 11.6-14.6 [facility] Comment on above: Performed By: #### L 509.8000, L3890.6005, L100.0100, BTS ####[facility] [address] [place], [address] Hematocrit (Bld) [Volume fraction] 37.5 % Normal 37-47 [facility] Comment on above: Performed By: #### L 509.8000, L3890.6005, L100.0100, BTS ####[facility] [address] [place], [address] Hemoglobin (Bld) [Mass/Vol] 12.2 g/dL Normal 12.0-15.0 [facility] Comment on above: Performed By: #### L 509.8000, L3890.6005, L100.0100, BTS ####[facility] [address] [place], [address] IG% 0.700 Normal 0.0-0.9 [facility] Comment on above: Result Comment: IG% - Immature Granulocytes (promyelocytes, myelocytes andmetamyelocytes) > 1% indicates that a LEFT SHIFT is Present. Performed By: #### L 509.8000, L3890.6005, L100.0100, BTS ####[facility] [address] [place], [address] Lymphocytes/100 WBC (Bld) 31.7 % Normal 19-41 [facility] Comment on above: Performed By: #### L 509.8000, L3890.6005, L100.0100, BTS ####[facility] [address] [place], [address] MCH (RBC) [Entitic mass] 27.2 pg Normal 27.0-32.0 [facility] Comment on above: Performed By: #### L 509.8000, L3890.6005, L100.0100, BTS ####[facility] [address] [place], [address] MCHC (RBC) [Mass/Vol] 32.5 g/dL Normal 32-36 [facility] Comment on above: Performed By: #### L 509.8000, L3890.6005, L100.0100, BTS ####[facility] [address] [place], [address] MCV (RBC) [Entitic vol] 83.7 fL Normal 81-99 [facility] Comment on above: Performed By: #### L 509.8000, L3890.6005, L100.0100, BTS ####[facility] [address] [place], [address] Monocytes/100 WBC (Bld) 5.0 % Normal 0-10 [facility] Comment on above: Performed By: #### L 509.8000, L3890.6005, L100.0100, BTS ####[facility] [address] [place], [address] Neutrophils/100 WBC (Bld) 61.6 % Normal 47-70 [facility] Comment on above: Performed By: #### L 509.8000, L3890.6005, L100.0100, BTS ####[facility] [address] [place], [address] Nucleated RBC (Bld) [#/Vol] 0 10*3/uL Normal 0-5 [facility] Comment on above: Performed By: #### L 509.8000, L3890.6005, L100.0100, BTS ####[facility] [address] [place], [address] Platelet mean volume (Bld) [Entitic vol] 10.9 fL Normal 6.2-12.0 [facility] Comment on above: Performed By: #### L 509.8000, L3890.6005, L100.0100, BTS ####[facility] [address] [place], [address] Platelets (Bld) [#/Vol] 337 10*3/uL Normal 150-450 [facility] Comment on above: Performed By: #### L 509.8000, L3890.6005, L100.0100, BTS ####[facility] [address] [place], [address] RBC (Bld) [#/Vol] 4.48 10*6/uL Normal 4.2-5.4 [facility] Comment on above: Performed By: #### L 509.8000, L3890.6005, L100.0100, BTS ####[facility] [address] [place], [address] RDW SD 40.7 fl Normal 35.1-43.9 [facility] Comment on above: Performed By: #### L 509.8000, L3890.6005, L100.0100, BTS ####[facility] [address] [place], [address] WBC (Bld) [#/Vol] 12.3 10*3/uL High 4.4-11.0 [facility] Comment on above: Performed By: #### L 509.8000, L3890.6005, L100.0100, BTS ####[facility] [address] [place], [address] Eosinophil percentageOrdered By: Amber Ram on 02-02-2024 Eosinophil percentage 0.8 % 0-5 [facility] Erythrocyte distribution wid th (RBC) [Entitic vol]Ordered By: Amber Ram on 02-02-2024 Erythrocyte distribution width standard deviation 40.7 fl 35.1-43.9 [facility] Erythrocyte distribution wid th (RBC) [Ratio]Ordered By: Amber Ram on 02-02-2024 Erythrocyte distribution width ratio 13.4 % 11.6-14.6 [facility] HIV - WCHon 02-02-2024 HIV Non-Reactive Normal Nonreactive [facility] Comment on above: Performed By: #### L 509.8000, L3890.6005, L100.0100, BTS ####[facility] [address] [place], [place], [address] Hematocrit Auto (Bld) [Volum e fraction]Ordered By: Amber Ram on 02-02-2024 Automated blood hematocrit (percentage) 37.5 % 37-47 [facility] Hemoglobin measurementOrdere d By: Amber Ram on 02-02-2024 Hemoglobin measurement 12.2 g/dL 12.0-15.0 [facility] Immature granulocytes/100 WB C Auto (Bld)Ordered By: Amber Ram on 02-02-2024 Automated immature granulocyte percentage 0.700 % 0.0-0.9 [facility] L509.8000on 02-02-2024 Syphilis Abs Non-Reactive Normal [facility] Comment on above: Performed By: #### L 509.8000, L3890.6005, L100.0100, BTS ####[facility] [address] [place], [place], [address] Lymphocytes Auto (Unsp spec) [#/Vol]Ordered By: Amber Ram on 02-02-2024 Absolute lymphocyte count 3.89 X10^3/uL 0.83-4.51 [facility] Lymphocytes/100 WBC Auto (Un sp spec)Ordered By: Amber Ram on 02-02-2024 Automated lymphocyte count as percentage of total leukocytes 31.7 % 19-41 [facility] MCV (RBC) [Entitic vol]Order ed By: Amber Ram on 02-02-2024 MCV (mean corpuscular volume) determination 83.7 fL 81-99 [facility] Mean corpuscular hemoglobin (MCH) determinationOrdered By: Amber Ram on 02-02-2024 Mean corpuscular hemoglobin (MCH) determination 27.2 pg 27.0-32.0 [facility] Mean corpuscular hemoglobin concentration (MCHC) determinationOrdered By: Amber Ram on 02-02-2024 Mean corpuscular hemoglobin concentration (MCHC) determination 32.5 g/dL 32-36 [facility] Mean platelet volume determi nationOrdered By: Amber Ram on 02-02-2024 Mean platelet volume determination 10.9 fl 6.2-12.0 [facility] Monocyte percentageOrdered B y: Amber Ram on 02-02-2024 Monocyte percentage 5.0 % 0-10 [facility] Neutrophil percentageOrdered By: Amber Ram on 02-02-2024 Neutrophil percentage 61.6 % 47-70 [facility] Nucleated red blood cell per centageOrdered By: Amber Ram on 02-02-2024 Nucleated red blood cell percentage 0 % 0-5 [facility] Admitting Coordinator Office Visit Reporton 02-02-2024 Admitting Coordinator Office Visit Report Normal [facility] Platelet countOrdered By: Sylvain Ram on 02-02-2024 Platelet count 337 K/mm3 150-450 [facility] RBC Auto (Bld) [#/Vol]Ordere d By: Amber Ram on 02-02-2024 Automated blood erythrocyte count 4.48 M/mm3 4.2-5.4 [facility] Serum Treponema species anti body detectionOrdered By: Amber Ram on 02-02-2024 Serum Treponema species antibody detection Non-Reactive Nonreactive [facility] Type AND Screenon 02-02-2024 Ab SCREEN GEL Negative Normal [facility] Comment on above: Order Comment: PN Performed By: #### L 509.8000, L3890.6005, L100.0100, BTS ####[facility] [address] [place], [place], [id number] White blood cell (WBC) count Ordered By: Amber Ram on 02-02-2024 White blood cell (WBC) count 12.3 K/mm3 High 4.4-11.0 [facility] Progress Noteon 01-31-2024 Pull Worker Authentication Interface Message Text Comanage PregestationalDiabetes Mellitus Fred Melgoza is seen at 28w4d for comanagement of Pregestational Diabetes Mellitus Type 2. She complains of ongoing URI sx with dx of bronchitis 01/28 . While still with cough and loss of voice, states is feeling better since started decadron. Took dose 01/28 and next dose 01/31. Her blood glucose record was reviewed. Her insulin changed. Current dose is Lantus 38 in am and 36 units at bedtime. Log 32 with breakfast, 34 units with lunch and 48 units with dinner. Metformin 500mg at HS . History of Presenting Problem: She is accompanied by her significant other. Pregestational Diabetes Fred presents today for her comanage visit. She has type 2 diabetes. The disease course is fluctuating. She is compliant with treatment most of the time. Blood glucose readings reviewed. Readings are as follows: FBS still high 90s low 100, post lunch/dinner elevations. Past Medical History: Past Medical History: Diagnosis Date Anxiety no medication Depression no medication Diabetes mellitus, type 2 Gallbladder disease affecting pt to have gallbladder removed after Migraine headache Obesity Uncomplicated asthma History reviewed. No pertinent surgical history. Medications: Outpatient Encounter Medications as of 01/31/2024 Medication Sig Dispense Refill DexAMETHasone (DECADRON) 4 MG tablet TAKE 1 TABLET BY MOUTH ONCE DAILY. repeat dose on 02/01/2024 NEEDED ondansetron (ZOFRAN-ODT) 4 MG disintegrating tablet metFORMIN (GLUCOPHAGE-XR) 500 MG ER tablet Take 1 Tablet (500 mg) by mouth nightly at bedtime 90 Tablet 2 Doxylamine Succinate, Sleep, (UNISOM PO) Take 25 mg by mouth nightly at bedtime promethazine (PHENERGAN) 25 MG tablet Take 1 Tablet (25 mg) by mouth 3 times daily MV & Min w/FA-DHA ( ADULT GUMMY/DHA/FA PO) Take 1 Tablet by mouth daily insulin glargine (LANTUS) 100 UNIT/ML SOLN injection Inject 20-50 units SQ daily as directed 15 mL 5 famotidine (PEPCID) 20 MG tablet Take 1 Tablet (20 mg) by mouth 2 times daily Insulin Lispro, 1 Unit Dial, (HUMALOG) 100 UNIT/ML SOPN Inject 0.15-0.3 mL (15-30 Units) into the skin 3 times daily (before meals) for 162 days 27 mL 5 Continuous Glucose Sensor (DEXCOM G7 SENSOR) MISC 1 Each by Does not apply route every 10 days for 162 days 3 Each 5 Continuous Glucose Transfer Man (DEXCOM G7 SITE DIRECTOR) PARAM 1 Each by Does not apply route daily 1 Each 0 albuterol 108 (90 Base) MCG/ACT inhaler Inhale 2 Puffs into the lungs every 6 hours as needed fluticasone (FLONASE) 50 MCG/ACT nasal spray 2 Sprays by Does not apply route 2 times daily UNIFINE PENTIPS 29G X 12MM MISC use 1 new pen tip with each injection. lansoprazole (PREVACID) 15 MG capsule Take 1 Capsule (15 mg) by mouth daily glycopyrrolate (ROBINUL) 2 MG tablet Take 1 Tablet (2 mg) by mouth daily Acetaminophen (TYLENOL PO) Take by mouth Prn for headaches glucose blood (ONE TOUCH ULTRA) test strip Use as directed to check blood sugar 200 Each 3 Alcohol Swabs (ALCOHOL PADS) Use to cleanse skin prior to insulin injection or checking blood sugar 200 Each 2 Lancets MISC Pt to check glucoses 4-7 times per day 200 Each 4 aspirin EC (ECOTRIN LOW STRENGTH) 81 MG EC tablet 81 mg po daily 90 Tablet 3 Magnesium Oxide (MAG OX) 400 (241.3 Mg) MG TABS tablet Take 1 Tablet (400 mg) by mouth daily for 180 days 90 Tablet 1 Blood Glucose Monitoring Suppl (ONE TOUCH ULTRA MINI) w/Device KIT Use as directed. 1 Kit 1 [DISCONTINUED] cephALEXin (KEFLEX) 500 MG capsule No facility-administered encounter medications on file as of 01/31/2024. Allergies: Allergies Allergen Reactions Prednisone Anaphylaxis and Other (See Comments) Latex Swelling Cetirizine Swelling Metformin Nausea And Vomiting Norethin Yaya-Eth Estrad-Fe Other (See Comments) and Rash Family Medical History: Family History Problem Relation Age of Onset Diabetes Mother Heart Failure Mother Asthma Mother Arthritis Mother Diabetes Mellitus I Mother Miscarriages / Stillbirths Mother Sleep Apnea Mother Arthritis Father Colon Cancer Other Social History: Social History Socioeconomic History Marital status: Spouse name: None Number of children: None Years of education: None Highest education level: None Tobacco Use Smoking status: Never Smokeless tobacco: Never Substance and Sexual Activity Alcohol use: Not Currently Drug use: Never Physical Exam: Vitals Extended BP: 130/74 Weight - Scale: (!) 122.6 kg (270 lb 4.8 oz) Heart Rate: Positive Number of Fetuses: 1 Heart Rate: 146 Movement: Present Vaginal Bleeding: Absent Cramps / Contractions: Absent Mucous Discharge: Absent Growth ultrasound today- EFW 53%tile. Full report to be sent under separate cover by Dr Humphrey Assessment/Plan: Fred Melgoza is a 23 y.o. at 28w4d with: Active Non-Hospital Problems (more content not included)... Normal [facility] Bedside Glucoseon 01-30-2024 FINGERSTICK GLU 98 mg/dL Normal 74-106 [facility] Comment on above: Result Comment: CHILO MEJIA OF PATIENT CARE PER NURSING PROTOCOL Performed By: #### L 501.080 ####[facility] [address] [place], [address] Chest PA and Lateralon 01-28 Chest PA and Lateral Normal [facility] Emergency Department Summary on 01-29-2024 Emergency Department Summary Normal [facility] Glucose measurement at bedsi deOrdered By: Best Gudino on 01-29-2024 Glucose measurement at bedside 98 mg/dL 74-106 [facility] Progress Noteon 01-24-2024 Pull Worker Authentication Interface Message Text Comanage PregestationalDiabetes Mellitus Fred Melgoza is seen at 26w4[age] for comanagement of Pregestational Diabetes Mellitus Type 2. She complains of resolving URI sx- still with raspy cough. No fever, SOB or exacerbation of asthma . She denies contractions, no vag bleeding and reports good movement. Her blood glucose record was reviewed. Her insulin changed. Current dose is Humalog/Novalog 32 units before breakfast, Humalog/Novalog 30 units before lunch, Humalog/Novalog 44 units before dinner, and Lantus 38/34. Metformin remains at 500mg at HS . History of Presenting Problem: She is accompanied by her significant other. Pregestational Diabetes Fred presents today for her comanage visit. She has type 2 diabetes. The disease course is fluctuating. Symptoms Course: challenge with compliance due to ongoing URI. Current treatments include insulin injections, diet and oral agent (monotherapy). She is compliant with treatment most of the time. Blood glucose readings reviewed. Readings are as follows: baseline elevation throughout morning and post dinner hyperglycemia. Exercise: not much physical activity due to illness. Past Medical History: Past Medical History: Diagnosis Date Anxiety no medication Depression no medication Diabetes mellitus, type 2 Gallbladder disease affecting pt to have gallbladder removed after Migraine headache Obesity Uncomplicated asthma History reviewed. No pertinent surgical history. Medications: Outpatient Encounter Medications as of 01/24/2024 Medication Sig Dispense Refill cephALEXin (KEFLEX) 500 MG capsule ondansetron (ZOFRAN-ODT) 4 MG disintegrating tablet metFORMIN (GLUCOPHAGE-XR) 500 MG ER tablet Take 1 Tablet (500 mg) by mouth nightly at bedtime 90 Tablet 2 Doxylamine Succinate, Sleep, (UNISOM PO) Take 25 mg by mouth nightly at bedtime promethazine (PHENERGAN) 25 MG tablet Take 1 Tablet (25 mg) by mouth 3 times daily MV & Min w/FA-DHA ( ADULT GUMMY/DHA/FA PO) Take 1 Tablet by mouth daily insulin glargine (LANTUS) 100 UNIT/ML SOLN injection Inject 20-50 units SQ daily as directed (Patient taking differently: Inject 20-50 units SQ daily as directed 38/34) 15 mL 5 famotidine (PEPCID) 20 MG tablet Take 1 Tablet (20 mg) by mouth 2 times daily Insulin Lispro, 1 Unit Dial, (HUMALOG) 100 UNIT/ML SOPN Inject 0.15-0.3 mL (15-30 Units) into the skin 3 times daily (before meals) for 162 days (Patient taking differently: Inject 0.15-0.3 mL (15-30 Units) into the skin 3 times daily (before meals) Taking 32//) 27 mL 5 Continuous Glucose Sensor (DEXCOM G7 SENSOR) MISC 1 Each by Does not apply route every 10 days for 162 days 3 Each 5 Continuous Glucose Transfer Man (DEXCOM G7 SITE DIRECTOR) PARAM 1 Each by Does not apply route daily 1 Each 0 albuterol 108 (90 Base) MCG/ACT inhaler Inhale 2 Puffs into the lungs every 6 hours as needed fluticasone (FLONASE) 50 MCG/ACT nasal spray 2 Sprays by Does not apply route 2 times daily UNIFINE PENTIPS 29G X 12MM MISC use 1 new pen tip with each injection. lansoprazole (PREVACID) 15 MG capsule Take 1 Capsule (15 mg) by mouth daily glycopyrrolate (ROBINUL) 2 MG tablet Take 1 Tablet (2 mg) by mouth daily Acetaminophen (TYLENOL PO) Take by mouth Prn for headaches glucose blood (ONE TOUCH ULTRA) test strip Use as directed to check blood sugar 200 Each 3 Alcohol Swabs (ALCOHOL PADS) Use to cleanse skin prior to insulin injection or checking blood sugar 200 Each 2 Lancets MISC Pt to check glucoses 4-7 times per day 200 Each 4 aspirin EC (ECOTRIN LOW STRENGTH) 81 MG EC tablet 81 mg po daily 90 Tablet 3 Magnesium Oxide (MAG OX) 400 (241.3 Mg) MG TABS tablet Take 1 Tablet (400 mg) by mouth daily for 180 days 90 Tablet 1 Blood Glucose Monitoring Suppl (ONE TOUCH ULTRA MINI) w/Device KIT Use as directed. 1 Kit 1 [DISCONTINUED] Vuwgcwzi-Pgx-Iz-FA (PRE- FORMULA PO) Take 1 Tablet by mouth daily No facility-administered encounter medications on file as of 01/24/2024. Allergies: Allergies Allergen Reactions Prednisone Anaphylaxis and Other (See Comments) Latex Swelling Cetirizine Swelling Metformin Nausea And Vomiting Norethin Yaya-Eth Estrad-Fe Other (See Comments) and Rash Family Medical History: Family History Problem Relation Age of Onset Diabetes Mother Heart Failure Mother Asthma Mother Arthritis Mother Diabetes Mellitus I Mother Miscarriages / Stillbirths Mother Sleep Apnea Mother Arthritis Father Colon Cancer Other Social History: Social History Socioeconomic History Marital status: Spouse name: None Number of children: None Years of education: None Highest education level: None Tobacco Use Smoking status: Never Smokeless tobacco: Never Substance and Sexual Activity Alcohol use: Not Currently Drug use: Never Physical Exam: Vitals Extended BP: 132/72 Weight - Scale: (more content not included)... Normal [facility] Urine Cultureon 01-21-2024 URC Mixed Gram Pos Gram Neg Org [place] Count 25,000-50,000 MIXC Mixed contaminants. Submit a new specimen if indicated. Normal [facility] Comment on above: Performed By: #### M 100.7513 ####[facility] [address] [place], [place], [id number] Bedside Glucoseon 01-20-2024 FINGERSTICK GLU 85 mg/dL Normal 74-106 [facility] Comment on above: Result Comment: CHILO MEJIA OF PATIENT CARE PER NURSING PROTOCOL Performed By: #### L 501.080 ####[facility] [address] [place], [address] Emergency Department Summary on 01-20-2024 Emergency Department Summary Normal [facility] Urinalysis, Completeon 01-19 WBC 10-25 SEEN Normal 0-5 [facility] Comment on above: Order Comment: COLOR OF URINE MAY AFFECT DIPSTICK RESULTS.CLEAN CATCH Performed By: #### L 400.0001 ####[facility] [address] [place], [address] BACTERIA 2+ /hpf Normal None Seen [facility] Comment on above: Order Comment: COLOR OF URINE MAY AFFECT DIPSTICK RESULTS.CLEAN CATCH Performed By: #### L 400.0001 ####[facility] [address] [place], [address] RBC 0-5 SEEN Normal 0-5 [facility] Comment on above: Order Comment: COLOR OF URINE MAY AFFECT DIPSTICK RESULTS.CLEAN CATCH Performed By: #### L 400.0001 ####[facility] [address] [place], [address] EPI,SQUAMOUS 0-5 SEEN Normal 5-10 [facility] Comment on above: Order Comment: COLOR OF URINE MAY AFFECT DIPSTICK RESULTS.CLEAN CATCH Performed By: #### L 400.0001 ####[facility] [address] [place], [address] Mucus Ql (Urine sed) 0 SEEN Normal [facility] Comment on above: Order Comment: COLOR OF URINE MAY AFFECT DIPSTICK RESULTS.CLEAN CATCH Performed By: #### L 400.0001 ####[facility] [address] [place], [address] Admitting Coordinator Office Visit Reporton 01-19-2024 Admitting Coordinator Office Visit Report Normal [facility] 12 Lead EKGon 01-13-2024 12 Lead EKG Normal [facility] Basic Metabolic Profile (BMP )on 01-13-2024 BUN/CRE 11.0 RATIO Normal 10-20 [facility] Comment on above: Order Comment: 'TROP ' Serial specimen #1, #2 or #3: 1 Performed By: #### L 500.2500, L100.0100, L501.4020 ####[facility] [address] [place], [address] CA,Total 8.5 mg/dL Normal 8.5-10.1 [facility] Comment on above: Order Comment: 'TROP ' Serial specimen #1, #2 or #3: 1 Performed By: #### L 500.2500, L100.0100, L501.4020 ####[facility] [address] [place], [address] Chloride [Moles/Vol] 112 mmol/L High 98-107 [facility] Comment on above: Order Comment: 'TROP ' Serial specimen #1, #2 or #3: 1 Performed By: #### L 500.2500, L100.0100, L501.4020 ####[facility] [address] [place], [address] CO2 [Moles/Vol] 21.0 mmol/L Normal 21.0-32.0 [facility] Comment on above: Order Comment: 'TROP ' Serial specimen #1, #2 or #3: 1 Performed By: #### L 500.2500, L100.0100, L501.4020 ####[facility] [address] [place], [address] Creatinine [Mass/Vol] 0.73 mg/dL Normal 0.55-1.02 [facility] Comment on above: Order Comment: 'TROP ' Serial specimen #1, #2 or #3: 1 Result Comment: The validity of the calculated GFR GFRAA in patients over70 years has not been determined. Clinical correlation isessential. Performed By: #### L 500.2500, L100.0100, L501.4020 ####[facility] [address] [place], [address] ECRCL 161.71 ml/min Normal [facility] Comment on above: Order Comment: 'TROP ' Serial specimen #1, #2 or #3: 1 Performed By: #### L 500.2500, L100.0100, L501.4020 ####[facility] [address] [place], [address] EST GFR - AA 126 mL/min Normal >60 [facility] Comment on above: Order Comment: 'TROP ' Serial specimen #1, #2 or #3: 1 Result Comment: Afri can Guinean GFR Calc Performed By: #### L 500.2500, L100.0100, L501.4020 ####[facility] [address] [place], [address] GAP 7 Normal 5-15 [facility] Comment on above: Order Comment: 'TROP ' Serial specimen #1, #2 or #3: 1 Performed By: #### L 500.2500, L100.0100, L501.4020 ####[facility] [address] [place], [address] GFR/1.73 sq M.predicted among non-blacks MDRD (S/P/Bld) [Vol rate/Area] 104 mL/min/{1.73_m2} Normal >60 [facility] Comment on above: Order Comment: 'TROP ' Serial specimen #1, #2 or #3: 1 Result Comment: Non- GFR Calc Performed By: #### L 500.2500, L100.0100, L501.4020 ####[facility] [address] [place], [address] Glucose [Mass/Vol] 94 mg/dL Normal 74-106 [facility] Comment on above: Order Comment: 'TROP ' Serial specimen #1, #2 or #3: 1 Performed By: #### L 500.2500, L100.0100, L501.4020 ####[facility] [address] [place], [address] Potassium [Moles/Vol] 3.5 mmol/L Normal 3.5-5.1 [facility] Comment on above: Order Comment: 'TROP ' Serial specimen #1, #2 or #3: 1 Performed By: #### L 500.2500, L100.0100, L501.4020 ####[facility] [address] [place], [address] Sodium [Moles/Vol] 139 mmol/L Normal 136-145 [facility] Comment on above: Order Comment: 'TROP ' Serial specimen #1, #2 or #3: 1 Performed By: #### L 500.2500, L100.0100, L501.4020 ####[facility] [address] [place], [address] Urea nitrogen [Mass/Vol] 8 mg/dL Normal 7-18 [facility] Comment on above: Order Comment: 'TROP ' Serial specimen #1, #2 or #3: 1 Performed By: #### L 500.2500, L100.0100, L501.4020 ####[facility] [address] [place], [address] CBC W/Diff, Automatedon 11-0 7-4 Absolute Lymph 1.62 X10 3/uL Normal 0.83-4.51 [facility] Comment on above: Performed By: #### L 500.2500, L100.0100, L501.4020 ####[facility] [address] [place], [address] Absolute Neut 7.0 X10 3/uL Normal 2.0-7.7 [facility] Comment on above: Performed By: #### L 500.2500, L100.0100, L501.4020 ####[facility] [address] [place], [address] Basophils/100 WBC (Bld) 0.3 % Normal 0-1 [facility] Comment on above: Performed By: #### L 500.2500, L100.0100, L501.4020 ####[facility] [address] [place], [address] Eosinophils/100 WBC (Bld) 0.5 % Normal 0-5 [facility] Comment on above: Performed By: #### L 500.2500, L100.0100, L501.4020 ####[facility] [address] [place], [address] Erythrocyte distribution width (RBC) [Ratio] 13.7 % Normal 11.6-14.6 [facility] Comment on above: Performed By: #### L 500.2500, L100.0100, L501.4020 ####[facility] [address] [place], [address] Hematocrit (Bld) [Volume fraction] 37.8 % Normal 37-47 [facility] Comment on above: Performed By: #### L 500.2500, L100.0100, L501.4020 ####[facility] [address] [place], [address] Hemoglobin (Bld) [Mass/Vol] 12.1 g/dL Normal 12.0-15.0 [facility] Comment on above: Performed By: #### L 500.2500, L100.0100, L501.4020 ####[facility] [address] [place], [address] IG% 0.400 Normal 0.0-0.9 [facility] Comment on above: Result Comment: IG% - Immature Granulocytes (promyelocytes, myelocytes andmetamyelocytes) > 1% indicates that a LEFT SHIFT is Present. Performed By: #### L 500.2500, L100.0100, L501.4020 ####[facility] [address] [place], [address] Lymphocytes/100 WBC (Bld) 17.5 % Low 19-41 [facility] Comment on above: Performed By: #### L 500.2500, L100.0100, L501.4020 ####[facility] [address] [place], [address] MCH (RBC) [Entitic mass] 26.9 pg Low 27.0-32.0 [facility] Comment on above: Performed By: #### L 500.2500, L100.0100, L501.4020 ####[facility] [address] [place], [address] MCHC (RBC) [Mass/Vol] 32.0 g/dL Normal 32-36 [facility] Comment on above: Performed By: #### L 500.2500, L100.0100, L501.4020 ####[facility] [address] [place], [address] MCV (RBC) [Entitic vol] 84.2 fL Normal 81-99 [facility] Comment on above: Performed By: #### L 500.2500, L100.0100, L501.4020 ####[facility] [address] [place], [address] Monocytes/100 WBC (Bld) 6.1 % Normal 0-10 [facility] Comment on above: Performed By: #### L 500.2500, L100.0100, L501.4020 ####[facility] [address] [place], [address] Neutrophils/100 WBC (Bld) 75.2 % High 47-70 [facility] Comment on above: Performed By: #### L 500.2500, L100.0100, L501.4020 ####[facility] [address] [place], [address] Nucleated RBC (Bld) [#/Vol] 0 10*3/uL Normal 0-5 [facility] Comment on above: Performed By: #### L 500.2500, L100.0100, L501.4020 ####[facility] [address] [place], [address] Platelet mean volume (Bld) [Entitic vol] 10.7 fL Normal 6.2-12.0 [facility] Comment on above: Performed By: #### L 500.2500, L100.0100, L501.4020 ####[facility] [address] [place], [address] Platelets (Bld) [#/Vol] 218 10*3/uL Normal 150-450 [facility] Comment on above: Performed By: #### L 500.2500, L100.0100, L501.4020 ####[facility] [address] [place], [address] RBC (Bld) [#/Vol] 4.49 10*6/uL Normal 4.2-5.4 [facility] Comment on above: Performed By: #### L 500.2500, L100.0100, L501.4020 ####[facility] [address] [place], [address] RDW SD 42.0 fl Normal 35.1-43.9 [facility] Comment on above: Performed By: #### L 500.2500, L100.0100, L501.4020 ####[facility] [address] [place], [address] WBC (Bld) [#/Vol] 9.3 10*3/uL Normal 4.4-11.0 [facility] Comment on above: Performed By: #### L 500.2500, L100.0100, L501.4020 ####[facility] [address] [place], [address] Chest PA and Lateralon 01-12 Chest PA and Lateral Normal [facility] Emergency Department Summary on 01-13-2024 Emergency Department Summary Normal [facility] L501.4020on 01-13-2024 TROPONIN-I HS < 3 Low 3.0-54.0 [facility] Comment on above: Order Comment: 'TROP ' Serial specimen #1, #2 or #3: 1 Result Comment: Valerie craig Note: New Test Units and Gender Specific Reference Ranges. For more information see Policy Stat Procedure [place] High Sensitivity Troponin (TNIH) and attachments. Performed By: #### L 500.2500, L100.0100, L501.4020 ####[facility] [address] [place], [place], [address] M100.678on 01-13-2024 M100.678 Pending SARS-CoV-2 (COVID 19) Negative INFLUENZA A A Positive A INFLUENZA B Negative RSV PCR Negative INFLUENZAE A Normal [facility] Comment on above: Performed By: #### M 100.678 ####[facility] [address] [place], [place], [address] CNOVon 01-12-2024 CNOV Office Visit (WSTR ) ----- FRED MELGOZA ([id number]) 2000 F Date Time Provider Department 01/12/24 10:00 AM ARNALDO BOWIE [facility] During your visit today, we recorded the following information about you: Temperature Pulse Respiration Blood pressure 97.7 degrees 114/minute 18/minute 118/74 Weight 124.1 kg Arnaldo Bowie APRN.CNP 01/12/2024 11:19 AM Signed Subjective HPI HPI Fred Melgoza is a 23 year old female who presents today for CC of cough, congestion, st. This started 6 days ago. Has tried otc medication for relief. Symptoms are worsened by nothing. Risk factors 25 weeks . Diabetic. nonsmoker. .Patient presents with: Cough: Cough, chest congestion, vomiting and St x 6 days PAST MEDICAL HISTORY Diagnosis Date Asthma Depression Diabetes mellitus (HCC) Generalized anxiety disorder No past surgical history on file. ALLERGIES Norethindrone Ac-Eth Estradiol, Norgestimate-Ethinyl Estradiol, Prednisone, and Zyrtec [Cetirizine] MEDICATIONS no.144-folic acid 400 mcg chew Take 1 tablet by mouth once daily. albuterol HFA (PROVENTIL HFA, VENTOLIN HFA) 90 mcg/actuation inhaler Inhale 2 Puffs as instructed every 6 hours as needed. omeprazole (PRILOSEC) 20 mg capsule take 1 capsule by mouth daily in the morning ondansetron orally disintegrating (ZOFRAN ODT) 4 mg disintegrating tablet Take by mouth. SUMAtriptan (IMITREX) 50 mg tablet TAKE 1 TABLET BY MOUTH NEEDED FOR MIGRAINE HEADACHE; MAY REPEAT AFTER 2 HOURS FREESTYLE SHOBHA 2 SENSOR kit glycopyrrolate (ROBINUL) 1 mg tablet Take 2 mg by mouth twice daily. sodium chloride (SALINE MIST) 0.65 % nasal spray Use 2 Sprays in the nose two times a day as needed. (Patient not taking: Reported on 05/14/2023) azelastine 0.1% nasal spray Use 1 [place] in each nostril two times a day. (Patient not taking: Reported on 05/14/2023) fluticasone (FLONASE) 50 mcg/actuation nasal spray Use 2 Sprays in each nostril two times a day. Rinse mouth after use. (Patient not taking: Reported on 05/14/2023) LIDOCAINE VISCOUS 2 % solution Take 15 mL by mouth three times a day as needed. (Patient not taking: Reported on 05/14/2023) JARDIANCE 10 mg tablet Take 1 tablet by mouth every afternoon. (Patient not taking: Reported on 05/14/2023) mupirocin (BACTROBAN) 2 % ointment Use 2 g in the nose. (Patient not taking: Reported on 05/14/2023) TRULICITY 1.5 mg/0.5 mL pen injector Inject 3 mg subcutaneously one time a week. (Patient not taking: Reported on 09/19/2023) metformin HCl (METFORMIN ORAL) Take 500 mg [...] Never Review of Systems Constitutional: Negative for fever. HENT: Positive for congestion and sore throat. Negative for ear pain and nosebleeds. Respiratory: Positive for cough. Negative for shortness of breath and wheezing. Musculoskeletal: Negative for neck pain. Objective Blood pressure 118/74, pulse 114, temperature 36.5 ?C (97.7 ?F), temperature source Tympanic, resp. rate 18, weight 124.1 kg (273 lb 9.5 oz), SpO2 98%. Physical Exam Constitutional: General: She is not in acute distress. Appearance: She is not toxic-appearing or diaphoretic. HENT: Head: Normocephalic and atraumatic. Right Ear: Hearing, tympanic membrane, ear canal and external ear normal. Left Ear: Hearing, tympanic membrane, ear canal and external ear normal. Nose: Nose normal. Mouth/Throat: Pharynx: Uvula midline. No pharyngeal swelling, oropharyngeal exudate, posterior oropharyngeal erythema or uvula swelling. Eyes: General: Lids are normal. No scleral icterus. Right eye: No discharge. Left eye: No discharge. Conjunctiva/sclera: Conjunctivae normal. Pupils: Pupils are equal, round, and reactive to light. Neck: Trachea: Trachea normal. Cardiovascular: Rate and Rhythm: Normal rate and regular rhythm. Heart sounds: Normal heart sounds. Pulmonary: Effort: Pulmonary effort is normal. Breath sounds: Normal breath sounds. Musculoskeletal: Cervical back: Normal range of motion and neck supple. Lymphadenopathy: Cervical: No cervical adenopathy. Right cervical: No superficial cervical adenopathy. Left cervical: No superficial cervical adenopathy. Skin: Findings: No rash. Neurological: Mental Status: She is alert and oriented to person, place, and time. Allergies As of Date: 01/12/2024 Noted Allergy Reaction NORETHINDRONE AC-ETH ESTRADIOL 11/04/2020 14 - Other: See Comments NORGESTIMATE-ETHINYL ESTRADIOL 10/02/19 (more content not included)... Normal [facility] FRED MELGOZA ([id number]) 2000 F Date Time Provider Department 01/12/24 ARNALDO BOWIE [facility] During your visit today, we recorded the following information about you: Muriel Rodriguez LPN 01/12/2024 1:22 PM Signed Patient calling, thought that a prescription for Flonase was to be sent to the pharmacy. Patient is asking that this be sent to [facility]. Please advise. Arnaldo Bowie APRN.[facility] 01/12/2024 1:25 PM Signed resent Allergies As of Date: 01/12/2024 Noted Allergy Reaction NORETHINDRONE AC-ETH ESTRADIOL 11/04/2020 14 - Other: See Comments NORGESTIMATE-ETHINYL ESTRADIOL 10/02/2019 18 - Angioedema PREDNISONE 11/04/2020 14 - Other: See Comments ZYRTEC (CETIRIZINE) 10/03/2020 7 - Swelling Date Reviewed: 01/12/2024 Reviewed by: Wendie Mathews LPN - Fully Assessed Reason for Visit: Medication Question [2898] Order(s):fluticasone (FLONASE) 50 mcg/actuation nasal sprayUse 2 Sprays in each nostril once daily. Rinse mouth after use.Disp: 1 EachRfl: 0 Prescriptions as of 01/12/2024 - fluticasone (FLONASE) 50 mcg/actuation nasal spray Use 2 Sprays in each nostril once daily. Rinse mouth after use. - no.144-folic acid 400 mcg chew Take 1 tablet by mouth once daily. - albuterol HFA (PROVENTIL HFA, VENTOLIN HFA) 90 mcg/actuation inhaler Inhale 2 Puffs as instructed every 6 hours as needed. - omeprazole (PRILOSEC) 20 mg capsule take 1 capsule by mouth daily in the morning - ondansetron orally disintegrating (ZOFRAN ODT) 4 mg disintegrating tablet Take by mouth. - sodium chloride (SALINE MIST) 0.65 % nasal spray Use 2 Sprays in the nose two times a day as needed. - azelastine 0.1% nasal spray Use 1 [place] in each nostril two times a day. - fluticasone (FLONASE) 50 mcg/actuation nasal spray Use 2 Sprays in each nostril two times a day. Rinse mouth after use. - LIDOCAINE VISCOUS 2 % solution Take 15 mL by mouth three times a day as needed. - JARDIANCE 10 mg tablet Take 1 tablet by mouth every afternoon. - SUMAtriptan (IMITREX) 50 mg tablet TAKE 1 TABLET BY MOUTH NEEDED FOR MIGRAINE HEADACHE; MAY REPEAT AFTER 2 HOURS - Cotendo SHOBHA 2 SENSOR kit - mupirocin (BACTROBAN) 2 % ointment Use 2 g in the nose. - glycopyrrolate (ROBINUL) 1 mg tablet Take 2 mg by mouth twice daily. - TRULICITY 1.5 mg/0.5 mL pen injector Inject 3 mg subcutaneously one time a week. - metformin HCl (METFORMIN ORAL) Take 500 mg by mouth twice daily. Problem List As Of Date: 01/12/2024 (None) Prescriptions ordered this encounter Disp Refills Start End FLUTICASONE PROPIONATE 50 MCG/ACTUAT* 1 Ea* 0 01/12/2024 Route: EACH NOSTRIL Sig: Use 2 Sprays in each nostril once daily. Rinse mouth after use. Encounter Status:Closed by ARNALDO OBWIE on 01/12/24 Normal [facility] STREP A MOLECULAR (POC)on Procedural Control Valid [facility] Strep A (POCT) Negative Negative [facility] XR CHEST 2V FRONTAL/LATon XR CHEST 2V FRONTAL/LAT * * *Final Report* * * DATE OF EXAM: Jan 12 2024 10:30AM WOX [id number] - XR CHEST 2V FRONTAL/LAT / PROCEDURE REASON: Acute cough * * * * Physician Interpretation * * * * EXAMINATION: CHEST RADIOGRAPH (2 VIEW FRONTAL and LATERAL) CLINICAL HISTORY: Acute cough MQ: XC2_6 EXAM DATE/TIME: 01/12/2024 10:30 AM COMPARISON: No relevant prior studies available. RESULT: Lines, tubes, and devices: None. Lungs and pleura: No consolidation. No lung mass. No pleural effusion. No pneumothorax. Cardiomediastinal silhouette: Normal cardiomediastinal silhouette. Bones and soft tissues: Unremarkable. IMPRESSION: No acute radiographic abnormality. Auto Transmission Specialist: [facility] Transcribe Date/Time: Jan 12 2024 10:36A Dictated by : SANDRA STARKS MD This examination was interpreted and the report reviewed and electronically signed by: SANDRA STARKS MD on Jan 12 2024 10:36AM EST [id number] Normal [facility] XR Chest PA and Lateralon IMPRESSION: No acute radiographic abnormality. Auto Transmission Specialist: [facility] Transcribe Date/Time: Jan 12 2024 10:36A Dictated by : SANDRA STARKS MD This examination was interpreted and the report reviewed and electronically signed by: SANDRA STARKS MD on Jan 12 2024 10:36AM EST DIVISION OF RADIOLOGY * * *Final Report* * * DATE OF EXAM: Jan 12 2024 10:30AM [id number] - XR CHEST 2V FRONTAL/LAT / PROCEDURE REASON: Acute cough * * * * Physician Interpretation * * * * EXAMINATION: CHEST RADIOGRAPH (2 VIEW FRONTAL & LATERAL) CLINICAL HISTORY: Acute cough MQ: XC2_6 EXAM DATE/TIME: 01/12/2024 10:30 AM COMPARISON: No relevant prior studies available. RESULT: Lines, tubes, and devices: None. Lungs and pleura: No consolidation. No lung mass. No pleural effusion. No pneumothorax. Cardiomediastinal silhouette: Normal cardiomediastinal silhouette. Bones and soft tissues: Unremarkable. DIVISION OF RADIOLOGY Provider, [facility] - 01/12/2024 * * *Final Report* * * DATE OF EXAM: Jan 12 2024 10:30AM WOX [id number] - XR CHEST 2V FRONTAL/LAT / PROCEDURE REASON: Acute cough * * * * Physician Interpretation * * * * EXAMINATION: CHEST RADIOGRAPH (2 VIEW FRONTAL & LATERAL) CLINICAL HISTORY: Acute cough MQ: XC2_6 EXAM DATE/TIME: 01/12/2024 10:30 AM COMPARISON: No relevant prior studies available. RESULT: Lines, tubes, and devices: None. Lungs and pleura: No consolidation. No lung mass. No pleural effusion. No pneumothorax. Cardiomediastinal silhouette: Normal cardiomediastinal silhouette. Bones and soft tissues: Unremarkable. IMPRESSION IMPRESSION: No acute radiographic abnormality. Auto Transmission Specialist: [facility] Transcribe Date/Time: Jan 12 2024 10:36A Dictated by : SANDRA STARKS MD This examination was interpreted and the report reviewed and electronically signed by: SANDRA STARKS MD on Jan 12 2024 10:36AM EST [facility] Radiology Study observation (narrative) [facility] XR Chest PA and LateralOrder ed By: [facility] Provider on 01-12-2024 [facility] Progress Noteon 01-11-2024 Pull Worker Authentication Interface Message Text Comanage Pregestational T2 Diabetes Mellitus Fred Melgoza is seen at 25w5d for comanagement of Pregestational Diabetes Mellitus. She denies any complaints today. Her blood glucose record was reviewed. Her insulin changed and oral medications Metformin did not change. Current dose is Lantus 34/34, Log 32/30/38 and Metformin 500mg at hs . History of Presenting Problem: She is accompanied by her partner. Fred denies any cramping, contractions, vaginal bleeding, unusual or increase in vaginal discharge, signs and symptoms of pre-eclampsia, or leaking of any fluid. Patient with positive movement. Past Medical History: Past Medical History: Diagnosis Date Anxiety no medication Depression no medication Diabetes mellitus, type 2 Gallbladder disease affecting pt to have gallbladder removed after Migraine headache Obesity Uncomplicated asthma History reviewed. No pertinent surgical history. Medications: Outpatient Encounter Medications as of 01/11/2024 Medication Sig Dispense Refill metFORMIN (GLUCOPHAGE-XR) 500 MG ER tablet Take 1 Tablet (500 mg) by mouth nightly at bedtime 90 Tablet 2 Doxylamine Succinate, Sleep, (UNISOM PO) Take 25 mg by mouth nightly at bedtime promethazine (PHENERGAN) 25 MG tablet Take 1 Tablet (25 mg) by mouth 3 times daily MV & Min w/FA-DHA ( ADULT GUMMY/DHA/FA PO) Take 1 Tablet by mouth daily insulin glargine (LANTUS) 100 UNIT/ML SOLN injection Inject 20-50 units SQ daily as directed 15 mL 5 famotidine (PEPCID) 20 MG tablet Take 1 Tablet (20 mg) by mouth 2 times daily Srtusrjr-Xuv-Dc-FA (PRE- FORMULA PO) Take 1 Tablet by mouth daily albuterol 108 (90 Base) MCG/ACT inhaler Inhale 2 Puffs into the lungs every 6 hours as needed fluticasone (FLONASE) 50 MCG/ACT nasal spray 2 Sprays by Does not apply route 2 times daily lansoprazole (PREVACID) 15 MG capsule Take 1 Capsule (15 mg) by mouth daily glycopyrrolate (ROBINUL) 2 MG tablet Take 1 Tablet (2 mg) by mouth daily Acetaminophen (TYLENOL PO) Take by mouth Prn for headaches aspirin EC (ECOTRIN LOW STRENGTH) 81 MG EC tablet 81 mg po daily 90 Tablet 3 Magnesium Oxide (MAG OX) 400 (241.3 Mg) MG TABS tablet Take 1 Tablet (400 mg) by mouth daily for 180 days 90 Tablet 1 fluticasone HFA 44 mcg inhaler Inhale 1 Puff into the lungs 2 times daily for 90 days 1 Each 1 Blood Glucose Monitoring Suppl (ONE TOUCH ULTRA MINI) w/Device KIT Use as directed. 1 Kit 1 Insulin Lispro, 1 Unit Dial, (HUMALOG) 100 UNIT/ML SOPN Inject 0.15-0.3 mL (15-30 Units) into the skin 3 times daily (before meals) for 162 days (Patient taking differently: Inject 0.15-0.3 mL (15-30 Units) into the skin 3 times daily (before meals) Takes 30 units in the morning, 28 units with lunch, and 36 units with dinner) 27 mL 5 Continuous Glucose Sensor (DEXCOM G7 SENSOR) MISC 1 Each by Does not apply route every 10 days for 162 days 3 Each 5 Continuous Glucose Transfer Man (DEXCOM G7 SITE DIRECTOR) PARAM 1 Each by Does not apply route daily 1 Each 0 UNIFINE PENTIPS 29G X 12MM MISC use 1 new pen tip with each injection. glucose blood (ONE TOUCH ULTRA) test strip Use as directed to check blood sugar 200 Each 3 Alcohol Swabs (ALCOHOL PADS) Use to cleanse skin prior to insulin injection or checking blood sugar 200 Each 2 Lancets MISC Pt to check glucoses 4-7 times per day 200 Each 4 No facility-administered encounter medications on file as of 01/11/2024. Allergies: Allergies Allergen Reactions Prednisone Anaphylaxis and Other (See Comments) Latex Swelling Cetirizine Swelling Metformin Nausea And Vomiting Norethin Yaya-Eth Estrad-Fe Other (See Comments) and Rash Family Medical History: Family History Problem Relation Age of Onset Diabetes Mother Heart Failure Mother Asthma Mother Arthritis Mother Diabetes Mellitus I Mother Miscarriages / Stillbirths Mother Sleep Apnea Mother Arthritis Father Colon Cancer Other Social History: Social History Socioeconomic History Marital status: Spouse name: None Number of children: None Years of education: None Highest education level: None Tobacco Use Smoking status: Never Smokeless tobacco: Never Substance and Sexual Activity Alcohol use: Not Currently Drug use: Never Physical Exam: Vitals Extended BP: 111/61 Weight - Scale: (!) 123.7 kg (272 lb 12.8 oz) Heart Rate: 148 See growth US from 01/03/24 Assessment/Plan: Fred Melgoza is a 23 y.o. at 25w5d with: Active Non-Hospital Problems Diagnosis Date Noted Supervision of other high risk pregnancies, second trimester 11/10/2023 Priority: High COMANAGE PLAN OF CARE MD/OB APPOINTMENTS Genetic screening: per OB, will reach out to primary OB (2 vessel cord) How often should patient be evaluated? Q 1-2 weeks prn diabetes until 32 weeks then weekly until delivery Work restrictions: NA EVALUATIO (more content not included)... Normal [facility] Progress Noteon 01-03-2024 Pull Worker Authentication Interface Message Text Comanage PregestationalDiabetes Mellitus Fred Melgoza is seen at 24w4d for comanagement of Pregestational Diabetes Mellitus.She denies any complaints today.Still with intermittent gallbladder discomfort. Reports + movement. Her blood glucose record was reviewed. Her insulin changed. Current dose is Lantus 28 units with breakfast and Lantus 28 units at HS, Humalog/Novalog 30 units before breakfast, Humalog/Novalog 28 units before lunch, Humalog/Novalog 36 units before dinner, and Metformin 500mg at HS . History of Presenting Problem: She is accompanied by her significant other. Pregestational Diabetes Fred presents today for her comanage visit. She has type 2 diabetes. The disease course is fluctuating. Her symptom course is noncompliant. Pertinent negative hyper/hypoglycemia symptoms include none. Hyper/Hypoglycemia complications do not include none. Current treatments include insulin injections, diet and oral agent (monotherapy). She is compliant with treatment some of the time. Blood glucose readings reviewed. Readings are as follows: Avg glucose 139 Running 100-140 at HS, no lows, 41% high 6% very high/. Blood glucose ranges are > 20% of values above. Exercise: only walks to/from work. standing during shift only physical activity. Past Medical History: Past Medical History: Diagnosis Date Anxiety no medication Depression no medication Diabetes mellitus, type 2 Gallbladder disease affecting pt to have gallbladder removed after Migraine headache Obesity Uncomplicated asthma History reviewed. No pertinent surgical history. Medications: Outpatient Encounter Medications as of 01/03/2024 Medication Sig Dispense Refill metFORMIN (GLUCOPHAGE-XR) 500 MG ER tablet Take 1 Tablet (500 mg) by mouth nightly at bedtime 90 Tablet 2 Doxylamine Succinate, Sleep, (UNISOM PO) Take 25 mg by mouth nightly at bedtime promethazine (PHENERGAN) 25 MG tablet Take 1 Tablet (25 mg) by mouth 3 times daily MV & Min w/FA-DHA ( ADULT GUMMY/DHA/FA PO) Take 1 Tablet by mouth daily insulin glargine (LANTUS) 100 UNIT/ML SOLN injection Inject 20-50 units SQ daily as directed (Patient taking differently: Inject 20-50 units SQ daily as directed Takes 28 units in the morning and 28 units at bedtime) 15 mL 5 famotidine (PEPCID) 20 MG tablet Take 1 Tablet (20 mg) by mouth 2 times daily Insulin Lispro, 1 Unit Dial, (HUMALOG) 100 UNIT/ML SOPN Inject 0.15-0.3 mL (15-30 Units) into the skin 3 times daily (before meals) for 162 days (Patient taking differently: Inject 0.15-0.3 mL (15-30 Units) into the skin 3 times daily (before meals) Takes 30 units in the morning, 28 units with lunch, and 36 units with dinner) 27 mL 5 Continuous Glucose Sensor (DEXCOM G7 SENSOR) MISC 1 Each by Does not apply route every 10 days for 162 days 3 Each 5 Continuous Glucose Transfer Man (DEXCOM G7 SITE DIRECTOR) PARAM 1 Each by Does not apply route daily 1 Each 0 Tckaqkks-Eaw-Cs-FA (PRE-STEFANIA FORMULA PO) Take 1 Tablet by mouth daily albuterol 108 (90 Base) MCG/ACT inhaler Inhale 2 Puffs into the lungs every 6 hours as needed fluticasone (FLONASE) 50 MCG/ACT nasal spray 2 Sprays by Does not apply route 2 times daily UNIFINE PENTIPS 29G X 12MM MISC use 1 new pen tip with each injection. lansoprazole (PREVACID) 15 MG capsule Take 1 Capsule (15 mg) by mouth daily glycopyrrolate (ROBINUL) 2 MG tablet Take 1 Tablet (2 mg) by mouth daily Acetaminophen (TYLENOL PO) Take by mouth Prn for headaches glucose blood (ONE TOUCH ULTRA) test strip Use as directed to check blood sugar 200 Each 3 Alcohol Swabs (ALCOHOL PADS) Use to cleanse skin prior to insulin injection or checking blood sugar 200 Each 2 Lancets [facility] Pt to check glucoses 4-7 times per day 200 Each 4 aspirin EC (ECOTRIN LOW STRENGTH) 81 MG EC tablet 81 mg po daily 90 Tablet 3 Magnesium Oxide (MAG OX) 400 (241.3 Mg) MG TABS tablet Take 1 Tablet (400 mg) by mouth daily for 180 days 90 Tablet 1 fluticasone HFA 44 mcg inhaler Inhale 1 Puff into the lungs 2 times daily for 90 days 1 Each 1 Blood Glucose Monitoring Suppl (ONE TOUCH ULTRA MINI) w/Device KIT Use as directed. 1 Kit 1 No facility-administered encounter medications on file as of 01/03/2024. Allergies: Allergies Allergen Reactions Prednisone Anaphylaxis and Other (See Comments) Latex Swelling Cetirizine Swelling Metformin Nausea And Vomiting Norethin Yaya-Eth Estrad-Fe Other (See Comments) and Rash Family Medical History: Family History Problem Relation Age of Onset Diabetes Mother Heart Failure Mother Asthma Mother Arthritis Mother Diabetes Mellitus I Mother Miscarriages / Stillbirths Mother Sleep Apnea Mother Arthritis Father Colon Cancer Other Social History: Social History Socioeconomic History Marital status: Spouse name: None Number of children: None Years of education: None Highest education l (more content not included)... Normal [facility] Progress Noteon 12-22-2023 Pull Worker Authentication Interface Message Text Comanage Pregestational T2 Diabetes Mellitus Fred Melgoza is seen at 22w6d for comanagement of Pregestational Diabetes Mellitus. She denies any complaints today. Her blood glucose record was reviewed. Her insulin changed due to elevated baseline glucose, and excursion with meals. Current dose is Lantus , Log , and add Metformin 500mg qhs . has used Metformin in the past with GI upset but not until higher doses. History of Presenting Problem: She is accompanied by her spouse. Fred denies any cramping, contractions, vaginal bleeding, unusual or increase in vaginal discharge, signs and symptoms of pre-eclampsia, or leaking of any fluid. Patient with positive movement. Past Medical History: Past Medical History: Diagnosis Date Anxiety no medication Depression no medication Diabetes mellitus, type 2 Gallbladder disease affecting pt to have gallbladder removed after Migraine headache Obesity Uncomplicated asthma History reviewed. No pertinent surgical history. Medications: Outpatient Encounter Medications as of 12/22/2023 Medication Sig Dispense Refill Doxylamine Succinate, Sleep, (UNISOM PO) Take 25 mg by mouth nightly at bedtime promethazine (PHENERGAN) 25 MG tablet Take 1 Tablet (25 mg) by mouth 3 times daily [DISCONTINUED] Ondansetron HCl (ZOFRAN PO) Take by mouth as needed MV & Min w/FA-DHA ( ADULT GUMMY/DHA/FA PO) Take 1 Tablet by mouth daily insulin glargine (LANTUS) 100 UNIT/ML SOLN injection Inject 20-50 units SQ daily as directed (Patient taking differently: Inject 20-50 units SQ daily as directed Taking 42 units at hs) 15 mL 5 famotidine (PEPCID) 20 MG tablet Take 1 Tablet (20 mg) by mouth 2 times daily Insulin Lispro, 1 Unit Dial, (HUMALOG) 100 UNIT/ML SOPN Inject 0.15-0.3 mL (15-30 Units) into the skin 3 times daily (before meals) for 162 days (Patient taking differently: Inject 0.15-0.3 mL (15-30 Units) into the skin 3 times daily (before meals) ) 27 mL 5 Continuous Glucose Sensor (DEXCOM G7 SENSOR) MISC 1 Each by Does not apply route every 10 days for 162 days 3 Each 5 Continuous Glucose Transfer Man (DEXCOM G7 SITE DIRECTOR) PARAM 1 Each by Does not apply route daily 1 Each 0 Zvpbmbed-Omn-Mf-FA (PRE-STEFANIA FORMULA PO) Take 1 Tablet by mouth daily albuterol 108 (90 Base) MCG/ACT inhaler Inhale 2 Puffs into the lungs every 6 hours as needed fluticasone (FLONASE) 50 MCG/ACT nasal spray 2 Sprays by Does not apply route 2 times daily UNIFINE PENTIPS 29G X 12MM [facility] use 1 new pen tip with each injection. lansoprazole (PREVACID) 15 MG capsule Take 1 Capsule (15 mg) by mouth daily glycopyrrolate (ROBINUL) 2 MG tablet Take 1 Tablet (2 mg) by mouth daily Acetaminophen (TYLENOL PO) Take by mouth Prn for headaches glucose blood (ONE TOUCH ULTRA) test strip Use as directed to check blood sugar 200 Each 3 Alcohol Swabs (ALCOHOL PADS) Use to cleanse skin prior to insulin injection or checking blood sugar 200 Each 2 Lancets [facility] Pt to check glucoses 4-7 times per day 200 Each 4 aspirin EC (ECOTRIN LOW STRENGTH) 81 MG EC tablet 81 mg po daily 90 Tablet 3 Magnesium Oxide (MAG OX) 400 (241.3 Mg) MG TABS tablet Take 1 Tablet (400 mg) by mouth daily for 180 days 90 Tablet 1 fluticasone HFA 44 mcg inhaler Inhale 1 Puff into the lungs 2 times daily for 90 days 1 Each 1 Blood Glucose Monitoring Suppl (ONE TOUCH ULTRA MINI) w/Device KIT Use as directed. 1 Kit 1 No facility-administered encounter medications on file as of 12/22/2023. Allergies: Allergies Allergen Reactions Prednisone Anaphylaxis and Other (See Comments) Latex Swelling Cetirizine Swelling Metformin Nausea And Vomiting Norethin Yaya-Eth Estrad-Fe Other (See Comments) and Rash Family Medical History: Family History Problem Relation Age of Onset Diabetes Mother Heart Failure Mother Asthma Mother Arthritis Mother Diabetes Mellitus I Mother Miscarriages / Stillbirths Mother Arthritis Father Social History: Social History Socioeconomic History Marital status: Spouse name: None Number of children: None Years of education: None Highest education level: None Tobacco Use Smoking status: Never Smokeless tobacco: Never Substance and Sexual Activity Alcohol use: Not Currently Drug use: Never Physical Exam: Vitals Extended BP: 126/74 Weight - Scale: (!) 123.2 kg (271 lb 11.2 oz) Fundal Height (cm): 23 Heart Rate: 148 Assessment/Plan: Fred Melgoza is a 23 y.o. at 22w6d with: Active Non-Hospital Problems Diagnosis Date Noted Supervision of other high risk pregnancies, second trimester 11/10/2023 Priority: High COMANAGE PLAN OF CARE MD/OB APPOINTMENTS Genetic screening: per OB, will reach out to primary OB (2 vessel cord) How often should patient be evaluated? Q 1-2 weeks prn diabetes until 32 weeks then weekly until delivery (more content not included)... Normal [facility] Admitting Coordinator Office Visit Reporton 12-15-2023 Admitting Coordinator Office Visit Report Normal [facility] Progress Noteon 12-08-2023 Pull Worker Authentication Interface Message Text Comanage Pregestational Diabetes Mellitus Fred Melgoza is seen at 20w6d for comanagement of Pregestational Diabetes Mellitus. She denies any complaints today. Her blood glucose record was reviewed. Her insulin changed. New dose is Lantus 42u at HS and Log . History of Presenting Problem: She is accompanied by her significant other. Fred denies any cramping, contractions, vaginal bleeding, unusual or increase in vaginal discharge, signs and symptoms of pre-eclampsia, or leaking of any fluid. Patient with positive movement. Past Medical History: Past Medical History: Diagnosis Date Anxiety no medication Depression no medication Diabetes mellitus type 1 Gallbladder disease affecting pt to have gallbladder removed after Migraine headache Obesity Uncomplicated asthma History reviewed. No pertinent surgical history. Medications: Outpatient Encounter Medications as of 12/08/2023 Medication Sig Dispense Refill MV & Min w/FA-DHA ( ADULT GUMMY/DHA/FA PO) Take 1 Tablet by mouth daily insulin glargine (LANTUS) 100 UNIT/ML SOLN injection Inject 20-50 units SQ daily as directed (Patient taking differently: Inject 20-50 units SQ daily as directed Taking 37 units at hs) 15 mL 5 famotidine (PEPCID) 20 MG tablet Take 1 Tablet (20 mg) by mouth 2 times daily Insulin Lispro, 1 Unit Dial, (HUMALOG) 100 UNIT/ML SOPN Inject 0.15-0.3 mL (15-30 Units) into the skin 3 times daily (before meals) for 162 days (Patient taking differently: Inject 0.15-0.3 mL (15-30 Units) into the skin 3 times daily (before meals) ) 27 mL 5 Continuous Glucose Sensor (DEXCOM G7 SENSOR) MISC 1 Each by Does not apply route every 10 days for 162 days 3 Each 5 Continuous Glucose Transfer Man (DEXCOM G7 SITE DIRECTOR) PARAM 1 Each by Does not apply route daily 1 Each 0 Liqogjtf-Swo-Mn-FA (PRE- FORMULA PO) Take 1 Tablet by mouth daily albuterol 108 (90 Base) MCG/ACT inhaler Inhale 2 Puffs into the lungs every 6 hours as needed fluticasone (FLONASE) 50 MCG/ACT nasal spray 2 Sprays by Does not apply route 2 times daily UNIFINE PENTIPS 29G X 12MM MISC use 1 new pen tip with each injection. lansoprazole (PREVACID) 15 MG capsule Take 1 Capsule (15 mg) by mouth daily glycopyrrolate (ROBINUL) 2 MG tablet Take 1 Tablet (2 mg) by mouth daily Acetaminophen (TYLENOL PO) Take by mouth Prn for headaches glucose blood (ONE TOUCH ULTRA) test strip Use as directed to check blood sugar 200 Each 3 Alcohol Swabs (ALCOHOL PADS) Use to cleanse skin prior to insulin injection or checking blood sugar 200 Each 2 Lancets MISC Pt to check glucoses 4-7 times per day 200 Each 4 aspirin EC (ECOTRIN LOW STRENGTH) 81 MG EC tablet 81 mg po daily 90 Tablet 3 Magnesium Oxide (MAG OX) 400 (241.3 Mg) MG TABS tablet Take 1 Tablet (400 mg) by mouth daily for 180 days 90 Tablet 1 fluticasone HFA 44 mcg inhaler Inhale 1 Puff into the lungs 2 times daily for 90 days 1 Each 1 Blood Glucose Monitoring Suppl (ONE TOUCH ULTRA MINI) w/Device KIT Use as directed. 1 Kit 1 No facility-administered encounter medications on file as of 12/08/2023. Allergies: Allergies Allergen Reactions Prednisone Anaphylaxis and Other (See Comments) Latex Swelling Cetirizine Swelling Metformin Nausea And Vomiting Norethin Yaya-Eth Estrad-Fe Other (See Comments) and Rash Family Medical History: Family History Problem Relation Age of Onset Diabetes Mother Heart Failure Mother Asthma Mother Arthritis Mother Diabetes Mellitus I Mother Miscarriages / Stillbirths Mother Arthritis Father Social History: Social History Socioeconomic History Marital status: Spouse name: None Number of children: None Years of education: None Highest education level: None Tobacco Use Smoking status: Never Smokeless tobacco: Never Substance and Sexual Activity Alcohol use: Not Currently Drug use: Never Physical Exam: Vitals Extended BP: 124/78 Weight - Scale: (!) 120.7 kg (266 lb 1.6 oz) Heart Rate: 148 See anatomy US from 11/29/23, and f/u suboptimal views from today 12/07. Assessment/Plan: Fred Melgoza is a 23 y.o. at 20w6d with: Active Non-Hospital Problems Diagnosis Date Noted Supervision of other high risk pregnancies, second trimester 11/10/2023 Priority: High COMANAGE PLAN OF CARE MD/OB APPOINTMENTS Genetic screening: per OB, will reach out to primary OB (2 vessel cord) How often should patient be evaluated? Q 1-2 weeks prn diabetes until 32 weeks then weekly until delivery Work restrictions: NA EVALUATION surveillance: 2x per week starting at 32 weeks Ultrasound: anatomy, echo, growth Q4 DELIVERY PLAN Hospital: [place]- may consider [place] if need for gallbladder surgery Induction at 39 weeks Contraception:TBD : declines Vaccinations recommended: Covid, influenza, TDap, RS (more content not included)... Normal [facility] Urine Cultureon 12-05-2023 URC Below infection leve l. Mixed Gram Positive Organisms [place] Count 1000-10,000 MIXC Mixed contaminants. Submit a new specimen if indicated. Presumptive C albicans [place] Count <1000 Normal [facility] Comment on above: Performed By: #### M 100.2199 ####[facility] [id number] [place], [place], [address] OB Triage Physician Noteon 0 12-03-2023 OB Triage Physician Note Normal [facility] Urinalysis, Routine (Dipstic k)on 12-03-2023 BILIRUBIN URINE Negative Normal Negative [facility] Comment on above: Order Comment: CLEAN CATCH Performed By: #### L ####[facility] [id number] [place], [place], [phone] (U) Cloudy Normal Clear [facility] Comment on above: Order Comment: CLEAN CATCH Performed By: #### L 400.2010 ####[facility] [address] [place], [address] Color (U) Yellow Normal Yellow [facility] Comment on above: Order Comment: CLEAN CATCH Performed By: #### L 400.2010 ####[facility] [id number] [place], [address] GLUCOSE, UR Normal Normal Normal [facility] Comment on above: Order Comment: CLEAN CATCH Performed By: #### L 400.2010 ####[facility] [id number] [place], [address] KETONE UR Negative Normal Negative [facility] Comment on above: Order Comment: CLEAN CATCH Performed By: #### L 400.2010 ####[facility] [id number] [place], [address] LEUK ESTERASE 500 /ul Abnormal Negative [facility] Comment on above: Order Comment: CLEAN CATCH Performed By: #### L 400.2010 ####[facility] [address] [place], [address] Nitrite Ql (U) Negative Normal Negative [facility] Comment on above: Order Comment: CLEAN CATCH Performed By: #### L 400.2010 ####[facility] [address] [place], [address] OCCULT BLOOD-UR 50 /ul Abnormal Negative [facility] Comment on above: Order Comment: CLEAN CATCH Performed By: #### L 400.2010 ####[facility] [address] [place], [address] pH UR 6.0 Normal 5.0 - 8.0 [facility] Comment on above: Order Comment: CLEAN CATCH Performed By: #### L 400.2010 ####[facility] [address] [place], [address] PROT DIPSTX 30 mg/dl Abnormal Negative [facility] Comment on above: Order Comment: CLEAN CATCH Performed By: #### L 400.2010 ####[facility] [address] [place], [address] SP.GR. DIPSTX 1.020 Normal 1.002-1.030 [facility] Comment on above: Order Comment: CLEAN CATCH Performed By: #### L 400.2010 ####[facility] [address] [place], [address] UROBILI 1 mg/dl Abnormal Normal [facility] Comment on above: Order Comment: CLEAN CATCH Performed By: #### L 400.2010 ####[facility] [address] [place], [address] 36on 12-02-2023 36 Please obtain ophthalmology report from Manish carrasco [place] from 09/2023 Normal [facility] Office Visiton 12-02-2023 Follow-up visit [id number] Fred Melgoza 2000 F Date Provider Department Center 12/02/2023 JOHN KHAN [facility] None Family History Problem Relation Age of Onset Diabetes Mother Hypertension Mother COPD Mother Arthritis Father Cancer Maternal Grandmother Diabetes Maternal Grandfather Family Status - Relation Status Age at Mother Alive Father Alive Maternal Grandmother Maternal Grandfather Level of Service:33149 [place] OFFICE/OUTPATIENT NEW MODERATE MDM 45 MINUTES Reason for Visit and Comments: New Patient [542] Diabetes [34] Normal [facility] Progress Noteon 12-02-2023 Progress Note [facility] DICAL [facility] ENDOCRINOLOGY [facility] [address] [place] [address] Dept: [phone] Dept Loc: [phone] Visit type: Reason for Visit: New Patient and Diabetes Assessment and Plan 1. Pre-existing type 2 diabetes mellitus during in second trimester - C-Peptide - Comprehensive metabolic panel - Glutamic acid decarboxylase (Sendout) - Diabetes Foot Exam - Diabetes Eye Exam 2. Therapeutic drug monitoring Goal A1C = less than 7%. Lab Results Component Value Date HGBA1C 6.9 (A) 11/10/2023 Diabetes is not stable Insulin is necessary for ongoing mgmt. - Pt will make the following changes to regimen: Dexcom G7/notch grinder ( phone not compatible) currently--in process of changing to Medtronic pump Continue Lantus 37 units q hs Continue Humalog 11/29/23 saw MFM--19 wks 4 days PARAMJIT 04/20/24 After review of record PCP notes and patient hx of non-insulin agents for diabetes most likely DM 2-- however MFM notes states DM1 and patient is unsure, there are no available labs to confirm Will just check C-peptide and DAVID to be sure - Recommend FSBS to occur Dexcom G7 times daily, be recorded, and send to office in will report MFM weeks for review. - Discussed A1C and BG goals - Encouraged lifestyle modifications of diet and exercise - Encouraged optimal foot care- follow with podiatry if needed - Encouraged following with ophthalmology - Patient counseled on the importance of taking medication as prescribed - Patient counseled on the effects of uncontrolled DM on other organ systems - Patient counseled on risk factors assoicated with diabetes - Patient counseled on detection and treatment of hypoglycemia - Patient instructed to call office if BG >250 or <70 consistently - Pt counseled about these recommendations. Pt voiced understanding. Diagnostic data I reviewed: Outside Documentation: none Laboratory: yes Radiographic: none Pt was advised of the results. [] Records from outside facility/PCP office to be requested. [] Scripts sent to pharmacy of pt choice. No follow-ups on file. Subjective HPI PCP = Fifi Morales MD Referring provider: PCP Initial [facility] Office visit: 12/02/2023 AYDEN: na DM Onset: 2018 age 17 metformin--stopped due to SE then on Jardiance--stopped due to UTI's, Trulicity stopped due to Type of DM: DM2 Sxs at time of dx = passed out at school--ED BG 500 Previous hospitalizations for DM/glucose abnorms = denies DKA Family hx DM = Mom DM2 Pt complaints include: Referral was made prior to preg and patient wants to be established after Preg hx pre-gestational DM2 Gall bladder disease plan surgery PP Working with M for Medtronic Pump Current Dexcom G7/notch grinder Current DM Medications: Lantus 37 units q hs Humalog Injection Sites: rotating no issues Taking Medications w/o Missed Doses: Yes Pt c/o SEs from Medications at today's visit: No Pt voices concerns about cost of medications at today's visit: No Reports HGM Dexcom G7 times per day Blood Sugar Log present: Yes Log Reviewed w/ pt: Yes Scanned into Media: Yes Hyperglycemia present: Yes Hypoglycemia present: No Following Diet for DM: No Bf saus, egg, toast make into sandwich Lunch works at [employer]-- Dinner protein, veg, starch Snack cheese stick, fruit Drink decaf coffee with SF creamer, water, diet pop Following Exercise Regimen: Yes At work-- go to gym with -- less lately Previously Used DM Meds: Yes metformin--stopped due to SE Jardiance--stopped due to UTI's, Trulicity stopped due to Lantus/Humalog in preg Complications: Cardiovascular -- No denies HTN, HLP, CAD Statin Use -- No Last JORDY/Retina Eval: 09/2023 Manish Hawkins Retinopathy -- No Nephropathy -- No YAYA/ARB Use -- No Polyneuropathy -- No foot exam 12/02/2023 Obesity -- Yes Other -- No AZAM needs to change mask Review of Systems Constitutional: Positive for fatigue. Gastrointestinal: Positive for nausea and vomiting (occasionally). Negative for abdominal pain, constipation and diarrhea. Endocrine: Positive for polydipsia and polyuria. Negative for polyphagia. Skin: Negative for wound. Neurological: Negative for numbness. Psychiatric/Behavioral: Positive for sleep disturbance. Negative for behavioral problems. The patient is not nervous/anxious. Allergies Allergen Reactions Prednisone Other and Anaphylaxis Latex Swelling Cetirizine Swelling Metformin Nausea And Vomiting Microgestin Fe 1-20 [Norethin Yaya-Eth Estrad-Fe] Unknown and Other Norgestimate-Eth Estradiol Angioedema Other Other reaction(s): Anaphylaxis Outpatient Medications Prior to Visit Medication Sig Dispense Refill albuterol 108 (90 Base) MCG/ACT inhaler Inhale 2 puffs every 6 hours as needed for wheezing or shortness of breath. 18 g 3 (more content not included)... Normal [facility] Progress Noteon 09-23-2024 Pull Worker Authentication Interface Message Text Comanage PregestationalDiabetes Mellitus Fred Melgoza is seen at 19w4d for comanagement of Pregestational Diabetes Mellitus. She denies any complaints today. Her blood glucose record was reviewed. Her insulin changed. Current dose is Lantus 35 units at HS, Log 20 units with breakfast, 22 units with lunch and 24 units with dinner . History of Presenting Problem: She is accompanied by her . Pregestational Diabetes Fred presents today for her comanage visit. She has type1 diabetes. The disease course is fluctuating. Symptoms Course: inconsistent with following dietary recommendations. Hyper/Hypoglycemia complications include required simple CHO. Current treatments include insulin injections and diet. She is compliant with treatment some of the time. Readings are as follows: responding to changes made last week. Past Medical History: Past Medical History: Diagnosis Date Anxiety no medication Depression no medication Diabetes mellitus type 1 Gallbladder disease affecting pt to have gallbladder removed after Migraine headache Obesity Uncomplicated asthma No past surgical history on file. Medications: Outpatient Encounter Medications as of 11/29/2023 Medication Sig Dispense Refill MV & Min w/FA-DHA ( ADULT GUMMY/DHA/FA PO) Take 1 Tablet by mouth daily insulin glargine (LANTUS) 100 UNIT/ML SOLN injection Inject 20-50 units SQ daily as directed (Patient taking differently: Inject 20-50 units SQ daily as directed Taking 30 units at hs) 15 mL 5 famotidine (PEPCID) 20 MG tablet Take 1 Tablet (20 mg) by mouth 2 times daily Insulin Lispro, 1 Unit Dial, (HUMALOG) 100 UNIT/ML SOPN Inject 0.15-0.3 mL (15-30 Units) into the skin 3 times daily (before meals) for 162 days (Patient taking differently: Inject 0.15-0.3 mL (15-30 Units) into the skin 3 times daily (before meals) ) 27 mL 5 Continuous Glucose Sensor (DEXCOM G7 SENSOR) MISC 1 Each by Does not apply route every 10 days for 162 days 3 Each 5 Continuous Glucose Transfer Man (DEXCOM G7 SITE DIRECTOR) PARAM 1 Each by Does not apply route daily 1 Each 0 Gjheqzgv-Uoz-Te-FA (PRE-STEFANIA FORMULA PO) Take 1 Tablet by mouth daily albuterol 108 (90 Base) MCG/ACT inhaler Inhale 2 Puffs into the lungs every 6 hours as needed fluticasone (FLONASE) 50 MCG/ACT nasal spray 2 Sprays by Does not apply route 2 times daily UNIFINE PENTIPS 29G X 12MM MISC use 1 new pen tip with each injection. lansoprazole (PREVACID) 15 MG capsule Take 1 Capsule (15 mg) by mouth daily glycopyrrolate (ROBINUL) 2 MG tablet Take 1 Tablet (2 mg) by mouth daily Acetaminophen (TYLENOL PO) Take by mouth Prn for headaches glucose blood (ONE TOUCH ULTRA) test strip Use as directed to check blood sugar 200 Each 3 Alcohol Swabs (ALCOHOL PADS) Use to cleanse skin prior to insulin injection or checking blood sugar 200 Each 2 Lancets MISC Pt to check glucoses 4-7 times per day 200 Each 4 aspirin EC (ECOTRIN LOW STRENGTH) 81 MG EC tablet 81 mg po daily 90 Tablet 3 Magnesium Oxide (MAG OX) 400 (241.3 Mg) MG TABS tablet Take 1 Tablet (400 mg) by mouth daily for 180 days 90 Tablet 1 fluticasone HFA 44 mcg inhaler Inhale 1 Puff into the lungs 2 times daily for 90 days 1 Each 1 Blood Glucose Monitoring Suppl (ONE TOUCH ULTRA MINI) w/Device KIT Use as directed. 1 Kit 1 No facility-administered encounter medications on file as of 11/29/2023. Allergies: Allergies Allergen Reactions Prednisone Anaphylaxis and Other (See Comments) Latex Swelling Cetirizine Swelling Metformin Nausea And Vomiting Norethin Yaya-Eth Estrad-Fe Other (See Comments) and Rash Family Medical History: Family History Problem Relation Age of Onset Diabetes Mother Heart Failure Mother Asthma Mother Arthritis Mother Diabetes Mellitus I Mother Miscarriages / Stillbirths Mother Arthritis Father Social History: Social History Socioeconomic History Marital status: Tobacco Use Smoking status: Never Smokeless tobacco: Never Substance and Sexual Activity Alcohol use: Not Currently Drug use: Never Physical Exam: Assessment/Plan: Fred Carmen Melgoza is a 23 y.o. at 19w4d with: Active Non-Hospital Problems Diagnosis Date Noted Supervision of other high risk pregnancies, second trimester 11/10/2023 COMANAGE PLAN OF CARE MD/OB APPOINTMENTS Genetic screening: per OB How often should patient be evaluated? Q 1-2 weeks prn diabetes until 32 weeks then weekly until delivery Work restrictions: NA EVALUATION surveillance: 2x per week starting at 32 weeks Ultrasound: anatomy, echo, growth Q4 DELIVERY PLAN Hospital: [facility] Induction at 39 weeks Contraception:TBD : recommended Vaccinations recommended: Covid, influenza, TDap, RSV Gallbladder disease affecting S/P MFM consult pt to have gallbladder removed after Obesity Pre (more content not included)... Normal [facility] Basic Metabolic Profile (BMP )on 11-26-2023 BUN/CRE 26.4 RATIO High 12-25 [facility] Comment on above: Performed By: #### L 500.3400, L500.2500, L100.0100, L501.5200, L501.2450 ####[facility] [address] [place], [address] CA,Total 8.8 mg/dL Normal 8.5-10.1 [facility] Comment on above: Performed By: #### L 500.3400, L500.2500, L100.0100, L501.5200, L501.2450 ####[facility] [address] [place], [address] Chloride [Moles/Vol] 108 mmol/L High 98-107 [facility] Comment on above: Performed By: #### L 500.3400, L500.2500, L100.0100, L501.5200, L501.2450 ####[facility] [address] [place], [address] CO2 [Moles/Vol] 24.0 mmol/L Normal 21.0-32.0 [facility] Comment on above: Performed By: #### L 500.3400, L500.2500, L100.0100, L501.5200, L501.2450 ####[facility] [address] [place], [address] Creatinine [Mass/Vol] 0.49 mg/dL Low 0.55-1.02 [facility] Comment on above: Result Comment: The validity of the calculated GFR GFRAA in patients over70 years has not been determined. Clinical correlation isessential. Performed By: #### L 500.3400, L500.2500, L100.0100, L501.5200, L501.2450 ####[facility] [address] [place], [address] ECRCL 234.83 ml/min Normal [facility] Comment on above: Performed By: #### L 500.3400, L500.2500, L100.0100, L501.5200, L501.2450 ####[facility] [address] [place], [address] EST GFR - AA 197 mL/min Normal >60 [facility] Comment on above: Result Comment: Afri can Guinean GFR Calc Performed By: #### L 500.3400, L500.2500, L100.0100, L501.5200, L501.2450 ####[facility] [address] [place], [address] GAP 5 Normal 5-15 [facility] Comment on above: Performed By: #### L 500.3400, L500.2500, L100.0100, L501.5200, L501.2450 ####[facility] [address] [place], [address] GFR/1.73 sq M.predicted among non-blacks MDRD (S/P/Bld) [Vol rate/Area] 163 mL/min/{1.73_m2} Normal >60 [facility] Comment on above: Result Comment: Non- GFR Calc Performed By: #### L 500.3400, L500.2500, L100.0100, L501.5200, L501.2450 ####[facility] [address] [place], [address] Glucose [Mass/Vol] 93 mg/dL Normal 74-106 [facility] Comment on above: Performed By: #### L 500.3400, L500.2500, L100.0100, L501.5200, L501.2450 ####[facility] [address] [place], [address] Potassium [Moles/Vol] 3.6 mmol/L Normal 3.5-5.1 [facility] Comment on above: Performed By: #### L 500.3400, L500.2500, L100.0100, L501.5200, L501.2450 ####[facility] [address] [place], [address] Sodium [Moles/Vol] 137 mmol/L Normal 136-145 [facility] Comment on above: Performed By: #### L 500.3400, L500.2500, L100.0100, L501.5200, L501.2450 ####[facility] [address] [place], [address] Urea nitrogen [Mass/Vol] 13 mg/dL Normal 7-18 [facility] Comment on above: Performed By: #### L 500.3400, L500.2500, L100.0100, L501.5200, L501.2450 ####[facility] [address] [place], [address] Bedside Glucoseon 11-26-2023 FINGERSTICK GLU 70 mg/dL Low 74-106 [facility] Comment on above: Result Comment: CHILO MEJIA OF PATIENT CARE PER NURSING PROTOCOL Performed By: #### L 501.080 ####[facility] [address] [place], [address] CBC W/Diff, Automatedon 11-07 Absolute Lymph 3.89 X10 3/uL Normal 0.83-4.51 [facility] Comment on above: Performed By: #### L 500.3400, L500.2500, L100.0100, L501.5200, L501.2450 ####[facility] [address] [place], [address] Absolute Neut 7.5 X10 3/uL Normal 2.0-7.7 [facility] Comment on above: Performed By: #### L 500.3400, L500.2500, L100.0100, L501.5200, L501.2450 ####[facility] [address] [place], [address] Basophils/100 WBC (Bld) 0.2 % Normal 0-1 [facility] Comment on above: Performed By: #### L 500.3400, L500.2500, L100.0100, L501.5200, L501.2450 ####[facility] [address] [place], [address] Eosinophils/100 WBC (Bld) 0.7 % Normal 0-5 [facility] Comment on above: Performed By: #### L 500.3400, L500.2500, L100.0100, L501.5200, L501.2450 ####[facility] [address] [place], [address] Erythrocyte distribution width (RBC) [Ratio] 14.5 % Normal 11.6-14.6 [facility] Comment on above: Performed By: #### L 500.3400, L500.2500, L100.0100, L501.5200, L501.2450 ####[facility] [address] [place], [address] Hematocrit (Bld) [Volume fraction] 37.2 % Normal 37-47 [facility] Comment on above: Performed By: #### L 500.3400, L500.2500, L100.0100, L501.5200, L501.2450 ####[facility] [address] [place], [address] Hemoglobin (Bld) [Mass/Vol] 12.0 g/dL Normal 12.0-15.0 [facility] Comment on above: Performed By: #### L 500.3400, L500.2500, L100.0100, L501.5200, L501.2450 ####[facility] [address] [place], [address] IG% 1.700 High 0.0-0.9 [facility] Comment on above: Result Comment: IG% - Immature Granulocytes (promyelocytes, myelocytes andmetamyelocytes) > 1% indicates that a LEFT SHIFT is Present. Performed By: #### L 500.3400, L500.2500, L100.0100, L501.5200, L501.2450 ####[facility] [address] [place], [address] Lymphocytes/100 WBC (Bld) 30.7 % Normal 19-41 [facility] Comment on above: Performed By: #### L 500.3400, L500.2500, L100.0100, L501.5200, L501.2450 ####[facility] [address] [place], [address] MCH (RBC) [Entitic mass] 27.0 pg Normal 27.0-32.0 [facility] Comment on above: Performed By: #### L 500.3400, L500.2500, L100.0100, L501.5200, L501.2450 ####[facility] [address] [place], [address] MCHC (RBC) [Mass/Vol] 32.3 g/dL Normal 32-36 [facility] Comment on above: Performed By: #### L 500.3400, L500.2500, L100.0100, L501.5200, L501.2450 ####[facility] [address] [place], [address] MCV (RBC) [Entitic vol] 83.6 fL Normal 81-99 [facility] Comment on above: Performed By: #### L 500.3400, L500.2500, L100.0100, L501.5200, L501.2450 ####[facility] [address] [place], [address] Monocytes/100 WBC (Bld) 7.8 % Normal 0-10 [facility] Comment on above: Performed By: #### L 500.3400, L500.2500, L100.0100, L501.5200, L501.2450 ####[facility] [address] [place], [address] Neutrophils/100 WBC (Bld) 58.9 % Normal 47-70 [facility] Comment on above: Performed By: #### L 500.3400, L500.2500, L100.0100, L501.5200, L501.2450 ####[facility] [address] [place], [address] Nucleated RBC (Bld) [#/Vol] 0 10*3/uL Normal 0-5 [facility] Comment on above: Performed By: #### L 500.3400, L500.2500, L100.0100, L501.5200, L501.2450 ####[facility] [address] [place], [address] Platelet mean volume (Bld) [Entitic vol] 11.9 fL Normal 6.2-12.0 [facility] Comment on above: Performed By: #### L 500.3400, L500.2500, L100.0100, L501.5200, L501.2450 ####[facility] [address] [place], [address] Platelets (Bld) [#/Vol] 246 10*3/uL Normal 150-450 [facility] Comment on above: Performed By: #### L 500.3400, L500.2500, L100.0100, L501.5200, L501.2450 ####[facility] [address] [place], [address] RBC (Bld) [#/Vol] 4.45 10*6/uL Normal 4.2-5.4 [facility] Comment on above: Performed By: #### L 500.3400, L500.2500, L100.0100, L501.5200, L501.2450 ####[facility] [address] [place], [address] RDW SD 44.0 fl High 35.1-43.9 [facility] Comment on above: Performed By: #### L 500.3400, L500.2500, L100.0100, L501.5200, L501.2450 ####[facility] [address] [place], [address] WBC (Bld) [#/Vol] 12.7 10*3/uL High 4.4-11.0 [facility] Comment on above: Performed By: #### L 500.3400, L500.2500, L100.0100, L501.5200, L501.2450 ####[facility] [address] [place], [address] Emergency Department Summary on 11-26-2023 Emergency Department Summary Normal [facility] Lipaseon 11-26-2023 Lipase [Catalytic activity/Vol] 25 U/L Normal 13-75 [facility] Comment on above: Result Comment: Valerie craig note:LIPASE revised reference range effective 22.New Lipase methodology. Expected to produce lower valuesthan the previous assay method.NEW Reference Range: 13 - 75 U/L Performed By: #### L 500.3400, L500.2500, L100.0100, L501.5200, L501.2450 ####[facility] [address] [place], [address] Liver Profileon 11-26-2023 Albumin [Mass/Vol] 2.6 g/dL Low 3.2-5.0 [facility] Comment on above: Performed By: #### L 500.3400, L500.2500, L100.0100, L501.5200, L501.2450 ####[facility] [address] [place], [address] ALK P 63 U/L Normal 45-117 [facility] Comment on above: Performed By: #### L 500.3400, L500.2500, L100.0100, L501.5200, L501.2450 ####[facility] [address] [place], [address] ALT [Catalytic activity/Vol] 22 U/L Normal 13-56 [facility] Comment on above: Performed By: #### L 500.3400, L500.2500, L100.0100, L501.5200, L501.2450 ####[facility] [address] [place], [address] AST [Catalytic activity/Vol] 17 U/L Normal 15-37 [facility] Comment on above: Performed By: #### L 500.3400, L500.2500, L100.0100, L501.5200, L501.2450 ####[facility] [address] [place], [address] Bilirubin [Mass/Vol] 0.40 mg/dL Normal 0.20-1.00 [facility] Comment on above: Result Comment: For patients on eltrombopag therapy, use of Dimension [place] TBIL is not recommended. Performed By: #### L 500.3400, L500.2500, L100.0100, L501.5200, L501.2450 ####[facility] [address] [place], [address] Bilirubin.direct [Mass/Vol] 0.12 mg/dL Normal 0.00-0.30 [facility] Comment on above: Performed By: #### L 500.3400, L500.2500, L100.0100, L501.5200, L501.2450 ####[facility] [address] [place], [address] Globulin (S) [Mass/Vol] 4.1 g/dL Normal 2.2-4.2 [facility] Comment on above: Performed By: #### L 500.3400, L500.2500, L100.0100, L501.5200, L501.2450 ####[facility] [address] [place], [address] T PROT 6.7 g/dL Normal 6.4-8.2 [facility] Comment on above: Performed By: #### L 500.3400, L500.2500, L100.0100, L501.5200, L501.2450 ####[facility] [address] [place], [address] Magnesiumon 11-26-2023 Magnesium [Mass/Vol] 1.5 mg/dL Low 1.6-2.6 [facility] Comment on above: Performed By: #### L 500.3400, L500.2500, L100.0100, L501.5200, L501.2450 ####[facility] [address] [place], [address] Gallbladderon 11-25-2023 Gallbladder Normal [facility] Urinalysis, Completeon 11-24 WBC 0-5 SEEN Normal 0-5 [facility] Comment on above: Order Comment: CLEAN CATCH Performed By: #### L 400.0001 ####[facility] [address] [place], [address] BACTERIA 0 SEEN Normal None Seen [facility] Comment on above: Order Comment: CLEAN CATCH Performed By: #### L 400.0001 ####[facility] [address] [place], [place], [address] EPI,SQUAMOUS 0 SEEN Normal 5-10 [facility] Comment on above: Order Comment: CLEAN CATCH Performed By: #### L 400.0001 ####[facility] [facility] [id number] [place], [place], [id number] Mucus Ql (Urine sed) 0 SEEN Normal [facility] Comment on above: Order Comment: CLEAN CATCH Performed By: #### L 400.0001 ####[facility] [id number] [place], [address] RBC 0 SEEN Normal 0-5 [facility] Comment on above: Order Comment: CLEAN CATCH Performed By: #### L 400.0001 ####[facility] [id number] [place], [place], [id number] Progress Noteon 11-24-2023 Pull Worker Authentication Interface Message Text Comanage Pregestational T1 Diabetes Mellitus Fred Melgoza is seen at 18w6d for comanagement of Pregestational Diabetes Mellitus. She denies any complaints today. Her blood glucose record was reviewed, poor control noted. Reviewed importance of diet and lifestyle compliance. Her insulin changed. Current dose is Humalog/Novalog 22 units before breakfast, Humalog/Novalog 20 units before lunch, Humalog/Novalog 20 units before dinner, and Lantus 36 units at HS . History of Presenting Problem: She is accompanied by her . Fred denies any cramping, contractions, vaginal bleeding, unusual or increase in vaginal discharge, signs and symptoms of pre-eclampsia, or leaking of any fluid. Patient with positive movement. Past Medical History: Past Medical History: Diagnosis Date Anxiety no medication Depression no medication Diabetes mellitus type 1 Gallbladder disease affecting pt to have gallbladder removed after Migraine headache Obesity Uncomplicated asthma History reviewed. No pertinent surgical history. Medications: Outpatient Encounter Medications as of 11/24/2023 Medication Sig Dispense Refill MV & Min w/FA-DHA ( ADULT GUMMY/DHA/FA PO) Take 1 Tablet by mouth daily insulin glargine (LANTUS) 100 UNIT/ML SOLN injection Inject 20-50 units SQ daily as directed (Patient taking differently: Inject 20-50 units SQ daily as directed Taking 30 units at hs) 15 mL 5 famotidine (PEPCID) 20 MG tablet Take 1 Tablet (20 mg) by mouth 2 times daily Insulin Lispro, 1 Unit Dial, (HUMALOG) 100 UNIT/ML SOPN Inject 0.15-0.3 mL (15-30 Units) into the skin 3 times daily (before meals) for 162 days (Patient taking differently: Inject 0.15-0.3 mL (15-30 Units) into the skin 3 times daily (before meals) ) 27 mL 5 Continuous Glucose Sensor (DEXCOM G7 SENSOR) MISC 1 Each by Does not apply route every 10 days for 162 days 3 Each 5 Continuous Glucose Transfer Man (DEXCOM G7 SITE DIRECTOR) PARAM 1 Each by Does not apply route daily 1 Each 0 Hakvgjgm-Ait-Vg-FA (PRE-STEFANIA FORMULA PO) Take 1 Tablet by mouth daily albuterol 108 (90 Base) MCG/ACT inhaler Inhale 2 Puffs into the lungs every 6 hours as needed fluticasone (FLONASE) 50 MCG/ACT nasal spray 2 Sprays by Does not apply route 2 times daily lansoprazole (PREVACID) 15 MG capsule Take 1 Capsule (15 mg) by mouth daily glycopyrrolate (ROBINUL) 2 MG tablet Take 1 Tablet (2 mg) by mouth daily Acetaminophen (TYLENOL PO) Take by mouth Prn for headaches aspirin EC (ECOTRIN LOW STRENGTH) 81 MG EC tablet 81 mg po daily 90 Tablet 3 Magnesium Oxide (MAG OX) 400 (241.3 Mg) MG TABS tablet Take 1 Tablet (400 mg) by mouth daily for 180 days 90 Tablet 1 fluticasone HFA 44 mcg inhaler Inhale 1 Puff into the lungs 2 times daily for 90 days 1 Each 1 Blood Glucose Monitoring Suppl (ONE TOUCH ULTRA MINI) w/Device KIT Use as directed. 1 Kit 1 UNIFINE PENTIPS 29G X 12MM MIS use 1 new pen tip with each injection. glucose blood (ONE TOUCH ULTRA) test strip Use as directed to check blood sugar 200 Each 3 Alcohol Swabs (ALCOHOL PADS) Use to cleanse skin prior to insulin injection or checking blood sugar 200 Each 2 Lancets MIS Pt to check glucoses 4-7 times per day 200 Each 4 No facility-administered encounter medications on file as of 11/24/2023. Allergies: Allergies Allergen Reactions Prednisone Anaphylaxis and Other (See Comments) Latex Swelling Cetirizine Swelling Metformin Nausea And Vomiting Norethin Yaya-Eth Estrad-Fe Other (See Comments) and Rash Family Medical History: Family History Problem Relation Age of Onset Diabetes Mother Heart Failure Mother Asthma Mother Arthritis Mother Diabetes Mellitus I Mother Miscarriages / Stillbirths Mother Arthritis Father Social History: Social History Socioeconomic History Marital status: Spouse name: None Number of children: None Years of education: None Highest education level: None Tobacco Use Smoking status: Never Smokeless tobacco: Never Substance and Sexual Activity Alcohol use: Not Currently Drug use: Never Physical Exam: Vitals Extended BP: 112/60 Weight - Scale: (!) 118.9 kg (262 lb 3.2 oz) Heart Rate: Positive Number of Fetuses: 1 Heart Rate: 148 Movement: Absent Vaginal Bleeding: Absent Cramps / Contractions: Absent Mucous Discharge: Absent Assessment/Plan: Fred Melgoza is a 23 y.o. at 18w6d with: Active Non-Hospital Problems Diagnosis Date Noted Supervision of other high risk pregnancies, second trimester 11/10/2023 COMANAGE PLAN OF CARE MD/OB APPOINTMENTS Genetic screening: per OB How often should patient be evaluated? Q 1-2 weeks prn diabetes until 32 weeks then weekly until delivery Work restrictions: NA EVALUATION surveillance: 2x per week starting at 32 weeks Ultrasound: anatomy, echo, growth Q4 D (more content not included)... Normal [facility] Progress Noteon 11-18-2023 Pull Worker Authentication Interface Message Text [facility] phone encounter I received a call from Dr. Shelbi Parmar about this patient today after Dr. Parmar was directed to call me about an admission from Sandy Tamez RN in our office the patient was not reviewed with a physician at [facility] and Dr. Parmar called the IP [facility] which was me. I attempted to talk to Sandy about this situation before I got the particulars from Dr. Parmar but she was not available. I reviewed the case with Dr Parmar and she reports some elevated fasting values up to 160 and she adjusted her BGT in the office, but wanted her to have closer follow up and stated this did not warrant admission, but was concerned as she had no additional appointments scheduled I reviewed the chart and she was placed on the schedule by Nay Tamez RN for 11/24/23 with an ultrasound. Sandra our schedule reached out to the patient via the and he stated she needs to work tomorrow and requested a Wednesday follow up. I did talk with both Dr. Parmar and Nay Tamez RN about the plan and agreed with Dr Parmar that the patient did not require admission but close follow up weekly and encouraged if the patient has persistently elevated BGT > 200 to come to [facility] for admission. If the patient after her appointment needs to be admitted after she is assessed by a provider this can also be arranged directly. Kaycee Kirby MD Normal [facility] COMPREHENSIVE METABOLIC PANE Jerome 11-10-2023 Albumin [Mass/Vol] 3.8 g/dL Normal 3.5-5.0 [facility] Comment on above: Order Comment: Relea se to patient->Automatic Performed By: #### 3 834 ####SHELBI BACCON W ([id number])[facility] ([employer] [address] [place] ALP [Catalytic activity/Vol] 76 U/L Normal 35-104 [facility] Comment on above: Order Comment: Relea se to patient->Automatic Performed By: #### 3 834 ####SHELBI BACCON W ([id number])[facility] ([employer])[facility] [place] [address] [place] ALT [Catalytic activity/Vol] 13 U/L Normal <=34 [facility] Comment on above: Order Comment: Relea se to patient->Automatic Performed By: #### 3 834 ####SHELBI BACCON W ([id number])[facility] ([employer])[facility] [place] [address] [place] AST [Catalytic activity/Vol] 20 U/L Normal <=31 [facility] Comment on above: Order Comment: Relea se to patient->Automatic Performed By: #### 3 834 ####SHELBI BACCON W ([id number])[facility] ([employer])[facility] [place] [address] [place] BILI,TOTAL 0.4 MG/DL Normal <=1.0 [facility] Comment on above: Order Comment: Relea se to patient->Automatic Performed By: #### 3 834 ####SHELBI Kwok ([id number])[facility] ([employer])[place] [address] [place] Calcium [Mass/Vol] 9.3 mg/dL Normal 7.6-11.0 [facility] Comment on above: Order Comment: Relea se to patient->Automatic Performed By: #### 3 834 ####SHELBI BACCON W ([id number])[facility] ([employer])[place] [address] [place] Chloride [Moles/Vol] 102 mmol/L Normal 96-[address] [facility] Comment on above: Order Comment: Relea se to patient->Automatic Performed By: #### 3 834 ####SHELBI BACCHRISTIANO W ([id number])[facility] ([employer])[place] [address] [place] CO2 [Moles/Vol] 21.1 mmol/L Low 22.0-29.0 [facility] Comment on above: Order Comment: Relea se to patient->Automatic Performed By: #### 3 834 ####SHELBI MICHAEL W ([id number])[facility] ([employer])[place] [address] [place] Creatinine [Mass/Vol] 0.57 mg/dL Normal 0.50-1.00 [facility] Comment on above: Order Comment: Relea se to patient->Automatic Performed By: #### 3 834 ####SHELBI BACCHRISTIANO W ([id number])[facility] ([employer])[place] [address] [place] GFR/1.73 sq M.predicted among non-blacks MDRD (S/P/Bld) [Vol rate/Area] mL/min/{1.73_m2} Normal >=60 [facility] Comment on above: Order Comment: Relea se to patient->Automatic Performed By: #### 3 834 ####SHELBI BACCHRISTIANO W ([id number])[facility] ([employer])[place] [address] [place] Glucose [Mass/Vol] 72 mg/dL Normal 70-99 [facility] Comment on above: Order Comment: Relea se to patient->Automatic Result Comment: Anjelica garza for Diagnosis of Diabetes: Fasting Specimen (no caloric intake for at least 8 hours): <100 mg/dL Normal 100-125 mg/dL Increased risk for Diabetes >125 mg/dL Diagnostic for Diabetes Random Glucose (any time of day without regard to last meal): > or = 200 mg/dL plus Classic Symptoms of Diabetes Performed By: #### 3 834 ####SHELBI Kwok ([id number])[facility] ([employer])[facility] [place] [address] [place] Potassium [Moles/Vol] 3.7 mmol/L Normal 3.3-5.1 [facility] Comment on above: Order Comment: Relea se to patient->Automatic Performed By: #### 3 834 ####SHELBI BACCHRISTIANO W ([id number])[facility] ([employer] [place] [address] [place] Protein [Mass/Vol] 7.3 g/dL Normal 5.9-8.4 [facility] Comment on above: Order Comment: Relea se to patient->Automatic Performed By: #### 3 834 ####SHELBI BACCHRISTIANO W ([id number])[facility] ([employer] [address] [place] Sodium [Moles/Vol] 135 mmol/L Normal 133-145 [facility] Comment on above: Order Comment: Relea se to patient->Automatic Performed By: #### 3 834 ####SHELBI BACCHRISTIANO W ([id number])[facility] ([employer])[facility] [place] [address] [place] Urea nitrogen [Mass/Vol] 10 mg/dL Normal 4-19 [facility] Comment on above: Order Comment: Relea se to patient->Automatic Performed By: #### 3 834 ####SHELBI BACCHRISTIANO W ([id number])[facility] ([employer] [place] [address] [place] CREATININE URINE RANDOMon Creatinine Urine, Random 112.0 MG/DL Normal 28.0-217.0 [facility] Comment on above: Order Comment: Relea se to patient->Automatic Performed By: #### 2 220 ####SHELBI Kwok ([id number])[facility] ([facility])[address] Comprehensive metabolic pane jerome 11-10-2023 Albumin BCG dye [Mass/Vol] 3.8 g/dL [facility] ALP [Catalytic activity/Vol] 76 U/L 35 - 104 U/L [facility] ALT With P-5'-P [Catalytic activity/Vol] 13 U/L NINF - 34 U/L [facility] AST With P-5'-P [Catalytic activity/Vol] 20 U/L BANNER - 31 U/L [facility] Bilirubin [Mass/Vol] 0.4 mg/dL [facility] Calcium [Mass/Vol] 9.3 mg/dL [facility] Chloride [Moles/Vol] 102 mmol/L [facility] Creatinine [Mass/Vol] 0.57 mg/dL [facility] eGFR - PINF [facility] Glucose [Mass/Vol] 72 mg/dL [facility] Comment on above: Criteria for Diagnos is of Diabetes: Fasting Specimen (no caloric intake for at least 8 hours): <100 mg/dL Normal 100-125 mg/dL Increased risk for Diabetes >125 mg/dL Diagnostic for Diabetes Random Glucose (any time of day without regard to last meal): > or = 200 mg/dL plus Classic Symptoms of Diabetes HCO3 (P) [Moles/Vol] 21.[address] [facility] Interpretation and review of laboratory results Abnormal [facility] Potassium (BldA) [Moles/Vol] 3.7 mmol/L 3.3 - 5.1 mmol/L [facility] Protein [Mass/Vol] 7.3 g/dL [facility] Sodium [Moles/Vol] 135 mmol/L 133 - 145 mmol/L [facility] Urea nitrogen [Mass/Vol] 10 mg/dL [facility] Creatinine Urine, Randomon 0 11-10-2023 Creatinine (U) [Mass/Vol] 112 mg/dL [facility] Interpretation and review of laboratory results Normal [facility] HEMOGLOBIN A1Con 11-10-2023 HbA1c (Bld) [Mass fraction] 6.9 % High <=5.6 [facility] Comment on above: Order Comment: Relea se to patient->Automatic Result Comment: Refe rence Interval: <5.7% 5.7-6.4% Prediabetes > or = 6.5% Diabetes Targets for diabetes management: Type I <7.5% Type II <7.0% Performed By: #### 2 557 ####SHELBI Kwok ([id number])[facility] ([address] Hemoglobin [id number] By: Deonte [facility] on 11-10-2023 HbA1c (Bld) [Mass fraction] 6.9 % High NINF - 5.6 % [facility] Comment on above: Reference Interval: <5.7% 5.7-6.4% Prediabetes > or = 6.5% Diabetes Targets for diabetes management: Type I <7.5% Type II <7.0% Interpretation and review of laboratory results Abnormal [facility] No Panel Informationon 11-09 [facility] No Panel InformationOrdered By: Background Lab on 11-10-2023 [facility] Progress Noteon 11-10-2023 Pull Worker Authentication Interface Message Text DIABETES AND PROGRAM COMANAGEMENT Referring/Requesting Provider: Shelbi Parmar, * PCP: [facility], MD Gunjan CHIEF COMPLAINT: T1DM HISTORY OF PRESENT ILLNESS: Fred is a 23 y.o. at 16w6d with T1DM on Lantus 20 units QHS, Novilin R . Blood glucose record was reviewed. Hyperglycemia is present > 50% of values. Fred denies headache, visual changes, abdominal pain, nausea, vomiting, swelling. No OB complaints. Her phone is not compatible with her Shobha CGM. She is interested in Dexcom. Dexcom sensor and notch grinder ordered. FGB 87-183 (02/17 elevated) 2 hour Pp bg 73-203 (01/31 elevated) OB History Para Term AB Living 1 SAB IAB Ectopic Multiple Live Births # Outcome Date GA Lbr Riki/2nd Weight Sex Type Anes PTL Lv 1 Current Past Medical History: Diagnosis Date Anxiety no medication Depression no medication Diabetes mellitus type 1 Gallbladder disease affecting pt to have gallbladder removed after Migraine headache Obesity Uncomplicated asthma History reviewed. No pertinent surgical history. Outpatient Medications Marked as Taking for the 11/10/23 encounter (Office Visit) with Bala Concepcion, Medication Sig Dispense Refill famotidine (PEPCID) 20 MG tablet Take 1 Tablet (20 mg) by mouth 2 times daily Wiwikwep-Uhe-Vx-FA (PRE- FORMULA PO) Take 1 Tablet by mouth daily albuterol 108 (90 Base) MCG/ACT inhaler Inhale 2 Puffs into the lungs every 6 hours as needed fluticasone (FLONASE) 50 MCG/ACT nasal spray 2 Sprays by Does not apply route 2 times daily insulin glargine (LANTUS) 100 UNIT/ML SOLN injection Pt taking 20 units at bedtime. UNIFINE PENTIPS 29G X 12MM MISC use 1 new pen tip with each injection. lansoprazole (PREVACID) 15 MG capsule Take 1 Capsule (15 mg) by mouth daily glycopyrrolate (ROBINUL) 2 MG tablet Take 1 Tablet (2 mg) by mouth daily Acetaminophen (TYLENOL PO) Take by mouth Prn for headaches glucose blood (ONE TOUCH ULTRA) test strip Use as directed to check blood sugar 200 Each 3 Alcohol Swabs (ALCOHOL PADS) Use to cleanse skin prior to insulin injection or checking blood sugar 200 Each 2 Lancets MISC Pt to check glucoses 4-7 times per day 200 Each 4 aspirin EC (ECOTRIN LOW STRENGTH) 81 MG EC tablet 81 mg po daily 90 Tablet 3 Magnesium Oxide (MAG OX) 400 (241.3 Mg) MG TABS tablet Take 1 Tablet (400 mg) by mouth daily for 180 days 90 Tablet 1 fluticasone HFA 44 mcg inhaler Inhale 1 Puff into the lungs 2 times daily for 90 days 1 Each 1 Blood Glucose Monitoring Suppl (ONE TOUCH ULTRA MINI) w/Device KIT Use as directed. 1 Kit 1 [DISCONTINUED] Insulin NPH Isophane & Regular (NOVOLIN 70/30 FLEXPEN) (70-30) 100 UNIT/ML SUPN Pt taking 15 units with every meal Allergies Allergen Reactions Prednisone Anaphylaxis and Other (See Comments) Latex Swelling Cetirizine Swelling Metformin Nausea And Vomiting Norethin Yaya-Eth Estrad-Fe Other (See Comments) and Rash PHYSICAL EXAM: VITAL SIGNS: BP 124/75 Pulse 89 Resp 18 Wt (!) 117.9 kg (260 lb) LMP 07/15/2023 SpO2 98% BMI 41.97 kg/m AAOx3, NAD Resp effort normal IMPRESSION AND RECOMMENDATIONS: Fred is a 23 y.o. at 16w6d with Active Non-Hospital Problems Diagnosis Date Noted Pre-existing type 1 diabetes mellitus in in second trimester 10/22/2023 Priority: High Pregestational Diabetes - Maternal Evaluation 1st trimester 2nd trimester 3rd trimester HA1c Ordered EKG Ordered Echo (age > 35, DM >10 yrs) UPC Ordered TSH c reflex fT4 Ordered Dental Exam Recommended Opthalmology Exam Recommended, up to date Nutrition declined ASA start at 12 weeks Taking 11/10/23 Lantus 20 units QHS increased to 24 Regular insulin changed to Log Dexcom not compatible with her phone. G7 sensor and notch grinder ordered through [facility]. Supervision of other high risk pregnancies, second trimester 11/10/2023 COMANAGE PLAN OF CARE MD/OB APPOINTMENTS Genetic screening: per OB How often should patient be evaluated? Q 1-2 weeks prn diabetes until 32 weeks then weekly until delivery Work restrictions: NA EVALUATION surveillance: 2x per week starting at 32 weeks Ultrasound: growth Q4 DELIVERY PLAN Hospital: [facility] Induction at 39 weeks Contraception:TBD : recommended Vaccinations recommended: Covid, influenza, TDap, RSV Gallbladder disease affecting S/P MFM consult pt to have gallbladder removed after Obesity Rh negative state in antepartum period, second trimester 10/22/2023 - Rhogam management per OB. Asthma affecting in second trimester 10/22/2023 - No current symptoms. Anxiety during in second trimester, antepartum 10/22/2023 Management per OB. Follow up with MFM In 1 week Chart review and preparation: 8 minutes. Face to face: 15 minutes. Documentation and care coordinati (more content not included)... Normal [facility] TOTAL PROTEIN URINE RANDOMon 11-10-2023 Protein (U) [Mass/Vol] 22 mg/dL High 0-11 [facility] Comment on above: Order Comment: Relea se to patient->Automatic Performed By: #### 1 254 ####SHELBI Kwok ([id number])[facility] ([employer])[place] [id number] [facility] TSH WITH REFLEX TO T4, FREEo n 11-10-2023 TSH 2.150 uIU/mL Normal 0.300-4.200 [facility] Comment on above: Order Comment: Relea se to patient->Automatic Performed By: #### 3 310 ####SHELBI LEARYCON W ([id number])[facility] ([place] [address] [facility] TSH with Reflex to T4, Freeo n 11-10-2023 Interpretation and review of laboratory results Normal [facility] TSH Qn 2.15 m[IU]/L [facility] Total Protein Urine, RandomO rdered By: Background Lab on 11-10-2023 Interpretation and review of laboratory results Abnormal [facility] Protein (U) [Mass/Vol] 22 mg/dL High 0 - 11 mg/dL [facility] CNOVon 10-28-2023 CNOV Office Visit ([facility]WSTR ) ----- FRED MELGOZA ([id number]) 2000 F Date Time Provider Department 10/28/23 6:30 PM INOCENCIA BRANDON WSTR During your visit today, we recorded the following information about you: Inocencia Brandon APRN.CNP 10/28/2023 7:38 PM Signed TRIAGE NOTE: Fred Melgoza with boyfriend, reports to express care with c/o abdominal pain. She is 15w3d . She denies any vaginal bleeding, discharge or loss of fluid. She has not yet felt movement. She did not call OB. Advised due to complaint and , she would need to be evaluated in OB triage. Will call OB at [place] and go to [facility]. Inocencia Brandon APRN.[employer] Allergies As of Date: 10/28/2023 Noted Allergy Reaction NORETHINDRONE AC-ETH ESTRADIOL 11/04/2020 14 - Other: See Comments NORGESTIMATE-ETHINYL ESTRADIOL 10/02/2019 18 - Angioedema PREDNISONE 11/04/2020 14 - Other: See Comments ZYRTEC (CETIRIZINE) 10/03/2020 7 - Swelling Date Reviewed: 09/19/2023 Reviewed by: Tiffanie Humphrey - Fully Assessed Primary Visit Diagnosis:Abdominal pain, unspecified abdominal location [R10.9] Other Visit Diagnosis:15 weeks gestation of [Z3A.15] Prescriptions as of 10/28/2023 - no.144-folic acid 400 mcg chew Take 1 tablet by mouth once daily. - albuterol HFA (PROVENTIL HFA, VENTOLIN HFA) 90 mcg/actuation inhaler Inhale 2 Puffs as instructed every 6 hours as needed. - omeprazole (PRILOSEC) 20 mg capsule take 1 capsule by mouth daily in the morning - ondansetron orally disintegrating (ZOFRAN ODT) 4 mg disintegrating tablet Take by mouth. - sodium chloride (SALINE MIST) 0.65 % nasal spray Use 2 Sprays in the nose two times a day as needed. - azelastine 0.1% nasal spray Use 1 [place] in each nostril two times a day. - fluticasone (FLONASE) 50 mcg/actuation nasal spray Use 2 Sprays in each nostril two times a day. Rinse mouth after use. - LIDOCAINE VISCOUS 2 % solution Take 15 mL by mouth three times a day as needed. - JARDIANCE 10 mg tablet Take 1 tablet by mouth every afternoon. - SUMAtriptan (IMITREX) 50 mg tablet TAKE 1 TABLET BY MOUTH NEEDED FOR MIGRAINE HEADACHE; MAY REPEAT AFTER 2 HOURS - FREESTYLE SHOBHA 2 SENSOR kit - mupirocin (BACTROBAN) 2 % ointment Use 2 g in the nose. - glycopyrrolate (ROBINUL) 1 mg tablet Take 2 mg by mouth twice daily. - TRULICITY 1.5 mg/0.5 mL pen injector Inject 3 mg subcutaneously one time a week. - metformin HCl (METFORMIN ORAL) Take 500 mg by mouth twice daily. Problem List As Of Date: 10/28/2023 (None) Encounter Status:Closed by INOCENCIA BRANDON on 10/28/23 Normal [facility] CNOVon 09-19-2023 CNOV Office Visit ([facility]WSTR ) ----- FRED MELGOZA ([id number]) 2000 F Date Time Provider Department 09/19/23 2:00 PM NED BIRCH [facility] During your visit today, we recorded the following information about you: Temperature Pulse Respiration Blood pressure 97.5 degrees 86/minute 16/minute 128/70 Weight 116 kg Ned Birch PA 09/19/2023 2:13 PM Signed This note was created using [employer] ([place] Subjective Fred Melgoza is a 23 year old female. HPI 23-year-old female 9 weeks presents for left low back pain starting yesterday. Patient states she has been having left low back pain and left buttocks pain since yesterday. Pain is worse with movement and walking. She had a little bit of pain and numbness radiating into the back of her legs. No pain or numbness anywhere else. No fevers. No history of sciatica. No history of surgery in the lumbar spine. No vaginal discharge or bleeding. No abdominal pain or pelvic pain. No urinary symptoms. She has not taken anything dxud-spk-nuazuri as she is not sure which she can take due to being . PAST MEDICAL HISTORY Diagnosis Date Asthma Depression Diabetes mellitus (HCC) Generalized anxiety disorder No past surgical history on file. ALLERGIES Norethindrone Ac-Eth Estradiol, Norgestimate-Ethinyl Estradiol, Prednisone, and Zyrtec [Cetirizine] MEDICATIONS no.144-folic acid 400 mcg chew Take 1 tablet by mouth once daily. albuterol HFA (PROVENTIL HFA, VENTOLIN HFA) 90 mcg/actuation inhaler Inhale 2 Puffs as instructed every 6 hours as needed. ondansetron orally disintegrating (ZOFRAN ODT) 4 mg disintegrating tablet Take by mouth. SUMAtriptan (IMITREX) 50 mg tablet TAKE 1 TABLET BY MOUTH NEEDED FOR MIGRAINE HEADACHE; MAY REPEAT AFTER 2 HOURS FREESTYLE SHOBHA 2 SENSOR kit glycopyrrolate (ROBINUL) 1 mg tablet Take 2 mg by mouth twice daily. omeprazole (PRILOSEC) 20 mg capsule take 1 capsule by mouth daily in the morning sodium chloride (SALINE MIST) 0.65 % nasal spray Use 2 Sprays in the nose two times a day as needed. (Patient not taking: Reported on 05/14/2023) azelastine 0.1% nasal spray Use 1 [place] in each nostril two times a day. (Patient not taking: Reported on 05/14/2023) fluticasone (FLONASE) 50 mcg/actuation nasal spray Use 2 Sprays in each nostril two times a day. Rinse mouth after use. (Patient not taking: Reported on 05/14/2023) LIDOCAINE VISCOUS 2 % solution Take 15 mL by mouth three times a day as needed. (Patient not taking: Reported on 05/14/2023) JARDIANCE 10 mg tablet Take 1 tablet by mouth every afternoon. (Patient not taking: Reported on 05/14/2023) mupirocin (BACTROBAN) 2 % ointment Use 2 g in the nose. (Patient not taking: Reported on 05/14/2023) TRULICITY 1.5 mg/0.5 mL pen injector Inject 3 mg subcutaneously one time a week. (Patient not taking: Reported on 09/19/2023) metformin HCl (METFORMIN ORAL) Take 500 mg [...] Never Review of Systems Constitutional: Negative for chills and fever. HENT: Negative for congestion, ear pain and sore throat. Respiratory: Negative for cough and shortness of breath. Cardiovascular: Negative for chest pain. Gastrointestinal: Negative for diarrhea and vomiting. Musculoskeletal: Positive for back pain. Objective BP 128/70 Pulse 86 Temp 36.4 ?C (97.5 ?F) Resp 16 Wt 116 kg (255 lb 11.7 oz) LMP (LMP Unknown) SpO2 97% BMI 41.28 kg/m? Physical Exam Vitals and nursing note reviewed. Constitutional: General: She is not in acute distress. Appearance: Normal appearance. She is not toxic-appearing. Cardiovascular: Rate and Rhythm: Normal rate and regular rhythm. Pulmonary: Effort: Pulmonary effort is normal. Breath sounds: Normal breath sounds. Musculoskeletal: Lumbar back: Tenderness present. No bony tenderness. Negative right straight leg raise test and negative left straight leg raise test. Back: Comments: Tenderness over left lower lumbar paraspinal muscles. No midline tenderness. Pain worse with movement of lumbar spine. Normal sensation lower extremities. Negative seated straight leg raise. Able to ambulate. Skin: General: Skin is warm and dry. Neurological: Mental Status: She is alert. Assessment and Plan ASSESSMENT/PLAN: 1. Lumbar pain - ICD9: 724.2, ICD10: M54.50 -Suspect muscular pain. -Low suspicion fracture, no fall or injury. -Patient is . Recommend ice 3 times daily. Tylenol as needed for pain. (more content not included)... Normal [facility] CNOVon 08-16-2023 CNOV Office Visit (UCWSTR ) ----- FRED MELGOZA ([id number]) 2000 F Date Time Provider Department 08/16/23 5:45 PM TIKI JEFFERSON [facility] During your visit today, we recorded the following information about you: Temperature Pulse Respiration Blood pressure 98.3 degrees 91/minute 18/minute 118/80 Weight 116 kg Tiki Jefferson APRN.[facility] 08/16/2023 6:04 PM Signed [facility] [address] [place], [place] [address] Emergency Department Diagnosis: Assessment : Your exam shows that you are . If you have not made arrangements with a doctor or clinic for care, we recommend that you call today for an appointment. An early checkup on your weight, blood pressure, development, and nutrition are very important, even if you have had normal pregnancies in the past. Vitamin and iron supplements are also recommended. Some symptoms of such as morning sickness, breast tenderness, and fatigue are normal. Take extra time for rest when you feel tired. Most physical activities (except rough contact sports) are allowed if you are not having any problems. You can safely have sex until shortly before the baby is born if you don?t have any problems with pain in the abdomen or bleeding from the vagina, but you shouldn?t douche. To prevent swelling, keep your legs elevated as much as possible and don?t sit with them crossed. Regular exercise will help you feel well and condition you for the physical stress of and delivery. Ask your doctor about the best type of exercises to do. Be sure to avoid getting dehydrated, and never exercise in hot conditions. Do not use a hot tub while you are . Taking 400-800 mcg of folic acid daily in the first weeks of has been shown to decrease the risk of neural tube defects in infants. All other drugs should be avoided, even non-prescription ones, unless approved by your doctor. Tobacco, marijuana, alcohol, cocaine, and amphetamines are especially harmful to your unborn baby. If you have a drug problem, tell your doctor and get help as soon as possible. Call your doctor or the emergency room if you have any of these symptoms: Abdominal pain or urinary burning. Vaginal bleeding or heavy discharge. Repeated vomiting and dehydration. Fever or chills. Tiki Jefferson APRN.[facility] 08/16/2023 6:53 PM Signed This note was created using Plusmoter. Subjective Fred Melgoza is a 23 year old female. Fred Melgoza is a 23 year old female with a PMH of T1DM, asthma, presenting with a possible . She is here today with her . He states that they have had 3 positive at-home tests since last night. She had noticed her menstrual cycle was late so that's why she decided to take one. Her LMP was July 08. Her last gynecology appointment was some time in the last year. She has a scheduled gynecology appointment on the this month. They had unprotected intercourse, and had been trying to get for years. She denies urinary frequency, urgency and burning, but states she is urinating more than usual and doesn't know if it is related to her T1DM. She denies vaginal discharge. Endorses n/v/d, but states she has gallbladder issues that might cause that. Her also states that she has been increasingly florentino, and that he noticed her abdomen was firm last week. Pertinent negatives: -abdominal pain -back pain -diaphoresis -fever -shortness of breath -chest pain -pelvic pain -vaginal pain -urinary frequency/urgency -vaginal discharge Pertinent positives: +polyuria +n/v/d +chills +fatigue The history is provided by the patient and the spouse. PAST MEDICAL HISTORY Diagnosis Date Asthma Depression Diabetes mellitus (HCC) Generalized anxiety disorder No past surgical history on file. ALLERGIES Norethindrone Ac-Eth Estradiol, Norgestimate-Ethinyl Estradiol, Prednisone, and Zyrtec [Cetirizine] MEDICATIONS albuterol HFA (PROVENTIL HFA, VENTOLIN HFA) 90 mcg/actuation inhaler Inhale 2 Puffs as instructed every 6 hours as needed. omeprazole (PRILOSEC) 20 mg capsule take 1 capsule by mouth daily in the morning ondansetron orally disintegrating (ZOFRAN ODT) 4 mg disintegrating tablet Take by mouth. SUMAtriptan (IMITREX) 50 mg tablet TAKE 1 TABLET BY MOUTH NEEDED FOR MIGRAINE HEADACHE; MAY REPEAT AFTER 2 HOURS FREESTYLE SHOBHA 2 SENSOR kit glycopyrrolate (ROBINUL) 1 mg tablet Take 2 mg by mouth twice daily. TRULICITY 1.5 mg/0.5 mL pen injector Inject 3 mg subcutaneously one time a week. no.144-folic acid 400 mcg chew Take 1 tablet by mouth once daily. sodium chloride (SALINE MIST) 0.65 % nasal spray Use 2 Sprays in the nose two times a day as needed. (Patient not taking: Reported on 05/14/2023) azelastine 0 (more content not included)... Normal [facility] UA DIP,URINE HCG (POC)on Beta HCG ( test) Ql (U) Positive Abnormal Negative [facility] Comment on above: Location: [facility], [address], [place], [address] Interpretation and review of laboratory results Abnormal [facility] Slot Tag Inserter (POCT) Internal QC OK [facility] Location:[facility], [address], [place], [address] [facility] CNPNon 07-01-2023 CNPN Telephone (NEMOWS) ----- FRED MELGOZA ([id number]) 2000 F Date Time Provider Department 07/01/23 NEUROLOGY PROVIDER JOSE During your visit today, we recorded the following information about you: Loli Arreola LPN 07/01/2023 5:55 PM Signed Referral received from [place] for Dx R41.3 other amnesia. Phone call placed unable to leave a message to schedule appointment. [place] active 01/2023 message sent , fwd to scheduling to assist patient. PARKER Gonzalez Jessica, LPN 07/02/2023 4:17 PM Signed Pt read message at 10:44 AM on 07/02/2023, with no response. No appointment made at this time. PARKER Raymond Lorinda, LPN 07/13/2023 6:36 PM Signed Appointment scheduled with 08/17/2023, no further action. Loli Arreola LPN Allergies As of Date: 07/01/2023 Noted Allergy Reaction NORETHINDRONE AC-ETH ESTRADIOL 11/04/2020 14 - Other: See Comments NORGESTIMATE-ETHINYL ESTRADIOL 10/02/2019 18 - Angioedema PREDNISONE 11/04/2020 14 - Other: See Comments ZYRTEC (CETIRIZINE) 10/03/2020 7 - Swelling Date Reviewed: 05/14/2023 Reviewed by: David Powers APRN.[employer] - Fully Assessed Reason for Visit: Appointment [186] Prescriptions as of 07/13/2023 - albuterol HFA (PROVENTIL HFA, VENTOLIN HFA) 90 mcg/actuation inhaler Inhale 2 Puffs as instructed every 6 hours as needed. - omeprazole (PRILOSEC) 20 mg capsule take 1 capsule by mouth daily in the morning - ondansetron orally disintegrating (ZOFRAN ODT) 4 mg disintegrating tablet Take by mouth. - sodium chloride (SALINE MIST) 0.65 % nasal spray Use 2 Sprays in the nose two times a day as needed. - azelastine 0.1% nasal spray Use 1 [place] in each nostril two times a day. - fluticasone (FLONASE) 50 mcg/actuation nasal spray Use 2 Sprays in each nostril two times a day. Rinse mouth after use. - LIDOCAINE VISCOUS 2 % solution Take 15 mL by mouth three times a day as needed. - JARDIANCE 10 mg tablet Take 1 tablet by mouth every afternoon. - SUMAtriptan (IMITREX) 50 mg tablet TAKE 1 TABLET BY MOUTH NEEDED FOR MIGRAINE HEADACHE; MAY REPEAT AFTER 2 HOURS - FREESTYLE SHOBHA 2 SENSOR kit - mupirocin (BACTROBAN) 2 % ointment Use 2 g in the nose. - glycopyrrolate (ROBINUL) 1 mg tablet Take 2 mg by mouth twice daily. - TRULICITY 1.5 mg/0.5 mL pen injector Inject 3 mg subcutaneously one time a week. - metformin HCl (METFORMIN ORAL) Take 500 mg by mouth twice daily. Problem List As Of Date: 07/01/2023 (None) Encounter Status:Closed by TIKI PEGUERO on 07/02/23 Normal [facility] Laboratory - Chemistry and C hemistry - challengeOrdered By: Yayo Martell on 06-21-2023 HCG ( test) Ql (U) Negative [facility] Comment on above: Very dilute urine sp ecimens, as indicated by a low specificgravity, may not contain commercial representative levels of hCG. If is still suspected, a first morning urinespecimen should be collected 48 hours later and tested. Thin prep Papanicolaou smear with manual screeningOrdered By: Rafael Bear on 06-21-2023 Thin prep Papanicolaou smear with manual screening 124 mg/dL 74-106 [facility] Comment on above: MANAGEMENT OF PATIEN T CARE PER NURSING PROTOCOL Basophil percentageOrdered B y: Yayo Martell on 06-17-2023 Chloride [Moles/Vol] 109 mmol/L 98-107 [facility] Glucose [Mass/Vol] 106 mg/dL 74-106 [facility] Comment on above: Fasting Glucose resu lt from 100 to 125 mg/dL suggests IMPAIRED HOMEOSTASIS per A.D.A. criteria. Hemoglobin (Bld) [Mass/Vol] 13.2 g/dL 12.0-15.0 [facility] Potassium [Moles/Vol] 4.1 mmol/L 3.5-5.1 [facility] Sodium [Moles/Vol] 138 mmol/L 136-145 [facility] WBC (Bld) [#/Vol] 8.1 10*3/uL 4.4-11.0 [facility] Determination of erythrocyte mean corpuscular volume (MCV)Ordered By: Yayo Martell on 06-17-2023 MCV (RBC) [Entitic vol] 81.3 fL 81-99 [facility] Erythrocyte distribution wid th ratioOrdered By: Yayo Martell on 06-17-2023 Erythrocyte distribution width (RBC) [Ratio] 13.3 % 11.6-14.6 [facility] Erythrocyte distribution wid th standard deviationOrdered By: Yayo Martell on 06-17-2023 Erythrocyte distribution width (RBC) [Entitic vol] 39.0 fL 35.1-43.9 [facility] Hematocrit Auto (Bld) [Volum e fraction]Ordered By: Yayo Martell on 06-17-2023 Hematocrit (Bld) [Volume fraction] 42.7 % 37-47 [facility] Laboratory - Chemistry and C hemistry - challengeOrdered By: Yayo Martell on 06-17-2023 CO2 [Moles/Vol] 27.0 mmol/L 21.0-32.0 [facility] Urea nitrogen/Creatinine [Mass ratio] 9.0 mg/mg 10-20 [facility] Laboratory - Hematology and Cell countsOrdered By: Yayo Martell on 06-17-2023 MCH (RBC) [Entitic mass] 25.1 pg 27.0-32.0 [facility] MCHC (RBC) [Mass/Vol] 30.9 g/dL 32-36 [facility] Platelet mean volume (Bld) [Entitic vol] 10.8 fL 6.2-12.0 [facility] Platelets (Bld) [#/Vol] 263 10*3/uL 150-450 [facility] No Panel InformationOrdered By: Keagan Shrestha on 06-17-2023 Anti-Nuclear Antibody Screen Negative Negative [facility] Comment on above: Performed at: [place] [id number] Director: Titi White PhD, Phone: [phone] [facility] B Antibody <0.2 AI 0.0-0.9 [facility] JULIETH-1 Antibody <0.2 AI 0.0-0.9 [facility] [employer] Antibody 0.3 AI 0.0-0.9 [facility] SM Antibody <0.2 AI 0.0-0.9 [facility] SS-A/Ro IgG Antibody < 0.2 AI 0.0-0.9 [facility] SS-B/La IgG Antibody < 0.2 AI 0.0-0.9 [facility] Vitamin D 25-Hydroxy 34.4 ng/mL [facility] Comment on above: Vitamin D 25(OH) Sta tus Range Deficiency <20 ng/mL (50nmol/L) Insufficiency 20 - 30 ng/mL (50 - 75 nmol/L) Sufficiency 30 - 100 ng/mL (75 - 250 nmol/L) Toxicity >100 ng/mL (>250 nmol/L) No Panel InformationOrdered By: Yayo Martell on 06-17-2023 Estimated GFR (MDRD) Amer 100 mL/min >60 [facility] Comment on above: GFR Calc Estimated GFR (MDRD) Non-Af Amer 83 mL/min >60 [facility] Comment on above: Non- GFR Calc RBC Auto (Bld) [#/Vol]Ordere d By: Yayo Martell on 06-17-2023 RBC (Bld) [#/Vol] 5.25 10*6/uL 4.2-5.4 [facility] Serum DNA double strand anti body assay (units/volume)Ordered By: Keagan Shrestha on 06-17-2023 DNA double strand Ab Qn (S) 4 [IU]/mL 0-9 [facility] Comment on above: Negative <5 Equivoca l 5 - 9 Positive >9 Serum Scl-70 antibody assay (units/volume)Ordered By: Keagan Shrestha on 06-17-2023 SCL-70 extractable nuclear Ab Qn (S) <0.2 AI 0.0-0.9 [facility] Serum or plasma calcium flaca urement (mass/volume)Ordered By: Yayo Martell on 06-17-2023 Calcium [Mass/Vol] 8.9 mg/dL 8.5-10.1 [facility] Serum or plasma creatinine m easurement (mass/volume)Ordered By: Yayo Martell on 06-17-2023 Creatinine [Mass/Vol] 0.89 mg/dL 0.55-1.02 [facility] Comment on above: The validity of the calculated GFR & GFRAA in patients over 70 years has not been determined. Clinical correlation is essential. Serum or plasma urea nitroge n measurement (mass/volume)Ordered By: Yayo Martell on 06-17-2023 Urea nitrogen [Mass/Vol] 8 mg/dL 7-18 [facility] Thin prep Papanicolaou smear with manual screeningOrdered By: Yayo Martell on 06-17-2023 Thin prep Papanicolaou smear with manual screening 2 5-15 [facility] Laboratory - Hematology and Cell countson 05-31-2023 HbA1c (Bld) [Mass fraction] 6.8 % 4.2-6.3 [facility] CNOVon 05-14-2023 CNOV Office Visit (UCWSTR ) ----- FRED MELGOZA ([id number]) 2000 F Date Time Provider Department 05/14/23 7:00 PM DAVID POWERS [facility] During your visit today, we recorded the following information about you: Temperature Pulse Respiration Blood pressure 98.3 degrees 81/minute 18/minute 104/73 Weight Last Period 110 kg 05/02/23 David Powers APRN.[employer] 05/14/2023 7:31 PM Signed Subjective HPI Nontoxic-appearing female presents urgent care [...] needed. azelastine 0.1% nasal spray Use 1 [place] in each nostril two times a day. [...] HEADACHE; MAY REPEAT AFTER 2 HOURS FREESTYLE SHOBHA 2 SENSOR kit mupirocin (BACTROBAN) 2 % [...] of motion. Lymphadenopathy: Cervical: No cervical adenopathy. (more content not included)... Normal [facility] CBC panel Auto (Bld)on 04-27 Erythrocyte distribution width (RBC) [Ratio] 14.4 % 11.0 - 15.0 % [facility] Hematocrit (Bld) [Volume fraction] 41.1 % 35.0 - 45.0 % [facility] Hemoglobin (Bld) [Mass/Vol] 12.9 g/dL 11.7 - 15.5 g/dL [facility] MCH (RBC) [Entitic mass] 25.7 pg Low 27.0 - 33.0 pg [facility] MCHC (RBC) [Mass/Vol] 31.4 g/dL Low 32.0 - 36.0 g/dL [facility] MCV (RBC) [Entitic vol] 81.9 fL 80.0 - 100.0 fL [facility] Platelet mean volume (Bld) [Entitic vol] 12.3 fL 7.5 - 12.5 fL [facility] Platelets (Bld) [#/Vol] 236 10*3/uL [facility] RBC (Bld) [#/Vol] 5.02 10*6/uL [facility] WBC (Bld) [#/Vol] 10.5 10*3/uL [facility] Comprehensive metabolic 1998 panelon 04-27-2023 Albumin [Mass/Vol] 4.2 g/dL 3.6 - 5.1 g/dL [facility] Albumin/Globulin [Mass ratio] 1.4 {ratio} [facility] ALP [Catalytic activity/Vol] 73 U/L 31 - 125 U/L [facility] ALT [Catalytic activity/Vol] 13 U/L 6 - 29 U/L [facility] AST [Catalytic activity/Vol] 13 U/L 10 - 30 U/L [facility] Bilirubin [Mass/Vol] 0.5 mg/dL 0.2 - 1 .2 mg/dL [facility] Calcium [Mass/Vol] 8.8 mg/dL 8.6 - 10. 2 mg/dL [facility] Chloride [Moles/Vol] 108 mmol/L 98 - 11 0 mmol/L [facility] CO2 [Moles/Vol] 22 mmol/L 20 - 32 mmol/L [facility] Creatinine [Mass/Vol] 0.77 mg/dL 0.50 - 0.96 mg/dL [facility] GFR/1.73 sq M.predicted among non-blacks MDRD (S/P/Bld) [Vol rate/Area] 110 mL/min/{1.73_m2} > OR = 60 mL/min/1.73m 2 [facility] Globulin (S) [Mass/Vol] 3.1 g/dL [facility] Glucose [Mass/Vol] 103 mg/dL High 65 - 99 mg/dL [facility] Comment on above: Fasting reference interval For someone without known diabetes, a glucose value between 100 and 125 mg/dL is consistent with prediabetes and should be confirmed with a follow-up test. Potassium [Moles/Vol] 4.2 mmol/L 3.5 - 5.3 mmol/L [facility] Protein [Mass/Vol] 7.3 g/dL 6.1 - 8.1 g/dL [facility] Sodium [Moles/Vol] 140 mmol/L 135 - 146 mmol/L [facility] Urea nitrogen [Mass/Vol] 19 mg/dL 7 - 25 mg/dL [facility] Urea nitrogen/Creatinine [Mass ratio] SEE NOTE: [facility] Comment on above: Not Reported: BUN an d Creatinine are within reference range. No Panel Informationon 04-27 Interpretation and review of laboratory results Abnormal [facility] TSHon 04-27-2023 TSH Qn 1.53 m[IU]/L mIU/L [facility] Comment on above: Reference Range > or = 20 Years 0.40-4.50 Ranges First trimester 0.26-2.66 Second trimester 0.55-2.73 Third trimester 0.43-2.91 Vitamin B12on 04-27-2023 Cobalamin (Vitamin B12) [Mass/Vol] 362 pg/mL 200 - 1100 pg/mL [facility] Comment on above: Please Note: Although the reference range for vitamin B12 is 200-1100 pg/mL, it has been reported that between 5 and 10% of patients with values between 200 and 400 pg/mL may experience neuropsychiatric and hematologic abnormalities due to occult B12 deficiency; less than 1% of patients with values above 400 pg/mL will have symptoms. AMB POC HEMOGLOBIN A1Con HbA1c (Bld) [Mass fraction] 6.2 % Abnormal - 5.7 % [facility] HbA1c (Bld) [Mass fraction]o n 02-26-2023 Interpretation and review of laboratory results Abnormal [facility] Absolute lymphocyte countOrd ered By: Juan Grimm on 12-25-2022 Lymphocytes Auto (Unsp spec) [#/Vol] 3.05 10*3/uL 0.83-4.51 [facility] Basophil percentageOrdered B y: Juan Grimm on 12-25-2022 Basophils/100 WBC (Bld) 0.5 % 0-1 [facility] Bilirubin [Mass/Vol] 0.70 mg/dL 0.20-1.00 [facility] Comment on above: For patients on eltr ombopag therapy, use of Dimension [place] TBIL is not recommended. Chloride [Moles/Vol] 109 mmol/L 98-107 [facility] Eosinophils/100 WBC (Bld) 1.0 % 0-5 [facility] Glucose [Mass/Vol] 103 mg/dL 74-106 [facility] Comment on above: Fasting Glucose resu lt from 100 to 125 mg/dL suggests IMPAIRED HOMEOSTASIS per A.D.A. criteria. Neutrophils (Bld) [#/Vol] 6.0 10*3/uL 2.0-7.7 [facility] Neutrophils/100 WBC (Bld) 60.4 % 47-70 [facility] Potassium [Moles/Vol] 3.9 mmol/L 3.5-5.1 [facility] Comment on above: Moderate Hemolysis, Result may be falsely increased. Protein [Mass/Vol] 8.1 g/dL 6.4-8.2 [facility] Sodium [Moles/Vol] 140 mmol/L 136-145 [facility] WBC (Bld) [#/Vol] 9.9 10*3/uL 4.4-11.0 [facility] Blood erythrocytes count (nu mber/volume)Ordered By: Juan Grimm on 12-25-2022 RBC (Bld) [#/Vol] 5.41 10*6/uL 4.2-5.4 [facility] Blood hemoglobin measurement (mass/volume)Ordered By: Juan Grimm on 12-25-2022 Hemoglobin (Bld) [Mass/Vol] 13.4 g/dL 12.0-15.0 [facility] Blood lymphocytes/100 leukoc ytesOrdered By: Juan Grimm on 12-25-2022 Lymphocytes/100 WBC (Bld) 30.8 % 19-41 [facility] Blood manual differential co mment interpretation (narrative result)Ordered By: Juan Grimm on 12-25-2022 Manual differential comment David (Bld) [Interp] SCANNED [facility] Comment on above: Please note: For thi s sample, a platelet estimate is provided rather than a platelet count due to platelet clumping. Other parameters associated with this sample are not affected by platelet clumping. If a more accurate platelet count is required, a redraw of the patient will be necessary. Blood monocytes/100 leukocyt esOrdered By: Juan Grimm on 12-25-2022 Monocytes/100 WBC (Bld) 7.0 % 0-10 [facility] Blood platelet mean volumeOr dered By: Juan Grimm on 12-25-2022 Platelet mean volume (Bld) [Entitic vol] 10.7 fL 6.2-12.0 [facility] Determination of erythrocyte mean corpuscular volume (MCV)Ordered By: Juan Grimm on 12-25-2022 MCV (RBC) [Entitic vol] 78.7 fL 81-99 [facility] Direct bilirubinOrdered By: Juan Grimm on 12-25-2022 Bilirubin.direct [Mass/Vol] 0.10 mg/dL 0.00-0.30 [facility] Hematocrit Auto (Bld) [Volum e fraction]Ordered By: Juan Grimm on 12-25-2022 Hematocrit (Bld) [Volume fraction] 42.6 % 37-47 [facility] Laboratory - Chemistry and C hemistry - challengeOrdered By: Juan Grimm on 12-25-2022 ALP [Catalytic activity/Vol] 86 U/L 45-117 [facility] ALT [Catalytic activity/Vol] 29 U/L 13-56 [facility] CO2 [Moles/Vol] 24.0 mmol/L 21.0-32.0 [facility] Globulin (S) [Mass/Vol] 4.7 g/dL 2.2-4.2 [facility] Lipase [Catalytic activity/Vol] 18 U/L 13-75 [facility] Comment on above: Please note:LIPASE r evised reference range effective 22. New Lipase methodology. Expected to produce lower values than the previous assay method. NEW Reference Range: 13 - 75 U/L Urea nitrogen/Creatinine [Mass ratio] 10.3 mg/mg 12-25 [facility] - Hematology and Cell countsOrdered By: Juan Grimm on 12-25-2022 Erythrocyte distribution width (RBC) [Entitic vol] 39.6 fL 35.1-43.9 [facility] Erythrocyte distribution width (RBC) [Ratio] 14.0 % 11.6-14.6 [facility] Immature granulocytes/100 WBC (Bld) 0.300 % 0.0-0.9 [facility] Comment on above: IG% - Immature Granu locytes (promyelocytes, myelocytes and metamyelocytes) > 1% indicates that a LEFT SHIFT is Present. MCH (RBC) [Entitic mass] 24.8 pg 27.0-32.0 [facility] Nucleated RBC/100 WBC (Bld) [Ratio] 0 % 0-5 [facility] MCHC Auto (RBC) [Mass/Vol]Or dered By: Juan Grimm on 12-25-2022 MCHC (RBC) [Mass/Vol] 31.5 g/dL 32-36 [facility] No Panel InformationOrdered By: Juan Grimm on 12-25-2022 Estimated Creatinine Clearance Calc 94.15 ml/min [facility] Estimated GFR (MDRD) Amer 102 mL/min >60 [facility] Comment on above: GFR Calc Estimated GFR (MDRD) Non-Af Amer 85 mL/min >60 [facility] Comment on above: Non- GFR Calc Platelets bldOrdered By: Franklin Grimm on 12-25-2022 Platelets (Bld) [#/Vol] 217 10*3/uL 150-450 [facility] Serum or plasma albumin flaca urement (mass/volume)Ordered By: Juan Grimm on 12-25-2022 Albumin [Mass/Vol] 3.4 g/dL 3.2-5.0 [facility] Serum or plasma calcium flaca urement (mass/volume)Ordered By: Juan Grimm on 12-25-2022 Calcium [Mass/Vol] 9.0 mg/dL 8.5-10.1 [facility] Serum or plasma creatinine m easurement (mass/volume)Ordered By: Juan Grimm on 12-25-2022 Creatinine [Mass/Vol] 0.87 mg/dL 0.55-1.02 [facility] Comment on above: The validity of the calculated GFR & GFRAA in patients over 70 years has not been determined. Clinical correlation is essential. Serum or plasma urea nitroge n measurement (mass/volume)Ordered By: Juan Grimm on 12-25-2022 Urea nitrogen [Mass/Vol] 9 mg/dL 7- [facility] Thin prep Papanicolaou smear with manual screeningOrdered By: Juan Grimm on 12-25-2022 Thin prep Papanicolaou smear with manual screening 31 U/L 15-37 [facility] Comment on above: Moderate Hemolysis, Result may be falsely increased. Thin prep Papanicolaou smear with manual screening 7 5-15 [facility] STREP A MOLECULAR (POC)on Procedural Control Valid [facility] Strep A (POCT) Negative Negative [facility] Absolute lymphocyte countOrd ered By: Juan Grimm on 12-03-2022 Lymphocytes Auto (Unsp spec) [#/Vol] 4.38 10*3/uL 0.83-4.51 [facility] Basophil percentageOrdered B y: Juan Grimm on 12-03-2022 Basophil percentage 0-5 SEEN /hpf 0-5 [facility] Basophils/100 WBC (Bld) 0.6 % 0-1 [facility] Bilirubin [Mass/Vol] 0.60 mg/dL 0.20-1.00 [facility] Comment on above: For patients on eltr ombopag therapy, use of Dimension [place] TBIL is not recommended. Chloride [Moles/Vol] 108 mmol/L 98-107 [facility] Eosinophils/100 WBC (Bld) 2.8 % 0-5 [facility] Glucose [Mass/Vol] 95 mg/dL 74-106 [facility] Neutrophils (Bld) [#/Vol] 3.8 10*3/uL 2.0-7.7 [facility] Neutrophils/100 WBC (Bld) 42.3 % 47-70 [facility] Potassium [Moles/Vol] 3.4 mmol/L 3.5-5.1 [facility] Protein [Mass/Vol] 7.8 g/dL 6.4-8.2 [facility] Sodium [Moles/Vol] 138 mmol/L 136-145 [facility] WBC (Bld) [#/Vol] 9.0 10*3/uL 4.4-11.0 [facility] Bilirubin Test strip Ql (U)O rdered By: Juan Grimm on 12-03-2022 Bilirubin Ql (U) Negative Negative [facility] Blood erythrocytes count (nu mber/volume)Ordered By: Juan Grimm on 12-03-2022 RBC (Bld) [#/Vol] 5.27 10*6/uL 4.2-5.4 [facility] Blood hemoglobin measurement (mass/volume)Ordered By: Juan Grimm on 12-03-2022 Hemoglobin (Bld) [Mass/Vol] 13.5 g/dL 12.0-15.0 [facility] Blood lymphocytes/100 leukoc ytesOrdered By: Juan Grimm on 12-03-2022 Lymphocytes/100 WBC (Bld) 48.6 % 19-41 [facility] Blood monocytes/100 leukocyt esOrdered By: Juan Grimm on 12-03-2022 Monocytes/100 WBC (Bld) 5.5 % 0-10 [facility] Blood platelet mean volumeOr dered By: Juan Grimm on 12-03-2022 Platelet mean volume (Bld) [Entitic vol] 10.6 fL 6.2-12.0 [facility] Determination of erythrocyte mean corpuscular volume (MCV)Ordered By: Juan Grimm on 12-03-2022 MCV (RBC) [Entitic vol] 80.8 fL 81-99 [facility] Direct bilirubinOrdered By: Juan Grimm on 12-03-2022 Bilirubin.direct [Mass/Vol] 0.16 mg/dL 0.00-0.30 [facility] Hematocrit Auto (Bld) [Volum e fraction]Ordered By: Juan Grimm on 12-03-2022 Hematocrit (Bld) [Volume fraction] 42.6 % 37-47 [facility] Ketones Test strip Ql (U)Ord ered By: Juan Grimm on 12-03-2022 Ketones Ql (U) 5 mg/dl Negative [facility] - Chemistry and C hemistry - challengeOrdered By: Juan Grimm on 12-03-2022 HCG ( test) Ql (U) Negative [facility] Comment on above: Very dilute urine sp ecimens, as indicated by a low specificgravity, may not contain commercial representative levels of hCG. If is still suspected, a first morning urinespecimen should be collected 48 hours later and tested. ALP [Catalytic activity/Vol] 75 U/L 45-117 [facility] ALT [Catalytic activity/Vol] 32 U/L 13-56 [facility] CO2 [Moles/Vol] 26.0 mmol/L 21.0-32.0 [facility] Globulin (S) [Mass/Vol] 3.9 g/dL 2.2-4.2 [facility] Lipase [Catalytic activity/Vol] 28 U/L 13-75 [facility] Comment on above: Please note:LIPASE r evised reference range effective 22. New Lipase methodology. Expected to produce lower values than the previous assay method. NEW Reference Range: 13 - 75 U/L Urea nitrogen/Creatinine [Mass ratio] 16.2 mg/mg 10-20 [facility] - Hematology and Cell countsOrdered By: Juan Grimm on 12-03-2022 Erythrocyte distribution width (RBC) [Entitic vol] 41.9 fL 35.1-43.9 [facility] Erythrocyte distribution width (RBC) [Ratio] 14.5 % 11.6-14.6 [facility] Immature granulocytes/100 WBC (Bld) 0.200 % 0.0-0.9 [facility] Comment on above: IG% - Immature Granu locytes (promyelocytes, myelocytes and metamyelocytes) > 1% indicates that a LEFT SHIFT is Present. MCH (RBC) [Entitic mass] 25.6 pg 27.0-32.0 [facility] Nucleated RBC/100 WBC (Bld) [Ratio] 0 % 0-5 [facility] MCHC Auto (RBC) [Mass/Vol]Or dered By: Juan Grimm on 12-03-2022 MCHC (RBC) [Mass/Vol] 31.7 g/dL 32-36 [facility] Mucus LM Ql (Urine sed)Order ed By: Juan Grimm on 12-03-2022 Mucus Ql (Urine sed) 0 SEEN /hpf [facility] Nitrite Test strip Ql (U)Ord ered By: Juan Grimm on 12-03-2022 Nitrite Ql (U) Negative Negative [facility] No Panel InformationOrdered By: Juan Grimm on 12-03-2022 Estimated Creatinine Clearance Calc 78.01 ml/min [facility] Estimated GFR (MDRD) Amer 83 mL/min >60 [facility] Comment on above: GFR Calc Estimated GFR (MDRD) Non-Af Amer 69 mL/min >60 [facility] Comment on above: Non- GFR Calc Platelets bldOrdered By: Franklin Grimm on 12-03-2022 Platelets (Bld) [#/Vol] 258 10*3/uL 150-450 [facility] Protein Test strip Ql (U)Ord ered By: Juan Grimm on 12-03-2022 Protein Ql (U) Negative Negative [facility] Serum or plasma albumin flaca urement (mass/volume)Ordered By: Juan Grimm on 12-03-2022 Albumin [Mass/Vol] 3.9 g/dL 3.2-5.0 [facility] Serum or plasma calcium flaca urement (mass/volume)Ordered By: Juan Grimm on 12-03-2022 Calcium [Mass/Vol] 8.9 mg/dL 8.5-10.1 [facility] Serum or plasma creatinine m easurement (mass/volume)Ordered By: Juan Grimm on 12-03-2022 Creatinine [Mass/Vol] 1.05 mg/dL 0.55-1.02 [facility] Comment on above: The validity of the calculated GFR & GFRAA in patients over 70 years has not been determined. Clinical correlation is essential. Serum or plasma urea nitroge n measurement (mass/volume)Ordered By: Juan Grimm on 12-03-2022 Urea nitrogen [Mass/Vol] 17 mg/dL 7-18 [facility] Squamous epithelial cells de tection in urine sediment by light microscopyOrdered By: Juan Grimm on 12-03-2022 Epithelial cells.squamous LM Ql (Urine sed) 5-10 SEEN /hpf 5-10 [facility] Thin prep Papanicolaou smear with manual screeningOrdered By: Juan Grimm on 12-03-2022 Thin prep Papanicolaou smear with manual screening 16 U/L 15-37 [facility] Thin prep Papanicolaou smear with manual screening 4 5-15 [facility] Urine blood detectionOrdered By: Juan Grimm on 12-03-2022 RBC Ql (U) Negative Negative [facility] RBC Ql (U) 0 SEEN /hpf 0-5 [facility] Urine clarityOrdered By: Franklin Grimm on 12-03-2022 Clarity (U) Clear Clear [facility] Urine color determinationOrd ered By: Juan Grimm on 12-03-2022 Color (U) Yellow Yellow [facility] Urine glucose detectionOrder ed By: Juan Grimm on 12-03-2022 Glucose Ql (U) 1000 mg/dl Normal [facility] Urine leukocyte esterase det ection by dipstickOrdered By: Juan Grimm on 12-03-2022 Leukocyte esterase Test strip Ql (U) 25 /ul Negative [facility] Urine pHOrdered By: Juan berkowitz on 12-03-2022 pH (U) 5.0 [pH] 5.0 - 8.0 [facility] Urine sediment bacteria coun t by microscopy (number/high power field)Ordered By: Juan Grimm on 12-03-2022 Bacteria LM.HPF (Urine sed) [#/Area] 0 /[HPF] None Seen [facility] Urine specific gravity measu rementOrdered By: Juan Grmim on 12-03-2022 Specific gravity (U) [Rel density] 1.015 1.002-1.030 [facility] Urobilinogen Auto test strip Ql (U)Ordered By: Juan Grimm on 12-03-2022 Urobilinogen Ql (U) Normal mg/dl Normal [facility] AMB POC HEMOGLOBIN A1Con HbA1c (Bld) [Mass fraction] 7.7 % Abnormal - 5.7 % [facility] HbA1c (Bld) [Mass fraction]o n 11-18-2022 Interpretation and review of laboratory results Abnormal [facility] CNPNon 10-19-2022 CNPN Telephone (AGOBST) ----- FRED MELGOZA ([id number]) 2000 F Date Time Provider Department 10/19/22 EFRAÍN WYLIE During your visit today, we recorded the following information about you: Lisa Mcfarland RN 10/19/2022 1:25 PM Signed Aware of results and recommendations. Still having s/s so instructions for clean catch given. Lisa Mcfarland RN Urine results suggest contamination. If patient is still asymptomatic, she can repeat the culture with clean catch technique. Orders filed. Thanks! Efraín Wylie PA-C Allergies As of Date: 10/19/2022 Noted Allergy Reaction NORETHINDRONE AC-ETH ESTRADIOL 11/04/2020 14 - Other: See Comments NORGESTIMATE-ETHINYL ESTRADIOL 10/02/2019 18 - Angioedema PREDNISONE 11/04/2020 14 - Other: See Comments ZYRTEC (CETIRIZINE) 10/03/2020 7 - Swelling Date Reviewed: 06/02/2022 Reviewed by: Ken Gomez APRN.[employer]ER [employer]ENG[employer] - Fully Assessed Reason for Visit: Results [95] Prescriptions as of 10/19/2022 - mupirocin (BACTROBAN) 2 % ointment Use 2 g in the nose. - pantoprazole DR (PROTONIX) 40 mg tablet Take 40 mg by mouth twice daily. - glycopyrrolate (ROBINUL) 1 mg tablet Take 2 mg by mouth twice daily. - TRULICITY 1.5 mg/0.5 mL pen injector Inject 3 mg subcutaneously one time a week. - metformin HCl (METFORMIN ORAL) Take 500 mg by mouth twice daily. Problem List As Of Date: 10/19/2022 (None) Encounter Status:Closed by LISA MCFARLAND on 10/19/22 Normal [facility] Bacteria Ur Culton 3 Bacteria identified Cx Nom (U) CULTURE, URINE: 50,000-<100,000 CFU/mL Three or more organisms, no one type predominant, suggesting contamination during collection. Recollect if clinically indicated. Abnormal [facility] Comment on above: Performed By: #### 6 30-4 #### [facility] CLIA [id number] [address] [place] [facility] Urinalysis complete panel (U )on 10-16-2022 Bilirubin Ql (U) Negative Normal Negative [facility] Comment on above: Order Comment: Speci men Type: URINE SPECIMEN Ordering Facility: [facility] Address: [address] [place] [address] Performed By: #### 2 4356-8 #### [facility] CLIA [id number] [address] [place] Clarity (Unsp spec) Turbid Abnormal Clear [facility] Comment on above: Order Comment: Speci men Type: URINE SPECIMEN Ordering Facility: [facility] Address: [address] [address] Performed By: #### 2 4356-8 #### [facility] CLIA [id number] [address] Color (U) Yellow Normal yellow [facility] Comment on above: Order Comment: Speci men Type: URINE SPECIMEN Ordering Facility: [facility] Address: [address] [address] Performed By: #### 2 4356-8 #### [facility] CLIA [id number] [address] Epithelial cells LM.HPF (Urine sed) [#/Area] Few Normal [facility] Comment on above: Order Comment: Speci men Type: URINE SPECIMEN Ordering Facility: [facility] Address: [address] [place] [address] Performed By: #### 2 4356-8 #### [facility] CLIA [id number] [address] Glucose Test strip (U) [Mass/Vol] Negative Normal Trace, Negative [facility] Comment on above: Order Comment: Speci men Type: URINE SPECIMEN Ordering Facility: [facility] Address: [address] [place] [address] Performed By: #### 2 4356-8 #### [facility] CLIA [id number] [address] Hemoglobin Ql (U) 2+ Abnormal Negative, Trace [facility] Comment on above: Order Comment: Speci men Type: URINE SPECIMEN Ordering Facility: [facility] Address: [address] [place] [address] Performed By: #### 2 4356-8 #### [facility] CLIA [id number] [address] Ketones Ql (U) Negative Normal Negative, Trace [facility] Comment on above: Order Comment: Speci men Type: URINE SPECIMEN Ordering Facility: [facility] Address: [address] [place] [address] Performed By: #### 2 4356-8 #### [facility] CLIA [id number] [address] [place] Leukocyte esterase Test strip Ql (U) Negative Normal Negative, 25 Marty/uL [facility] Comment on above: Order Comment: Speci men Type: URINE SPECIMEN Ordering Facility: [facility] Address: [address] [place] [address] Performed By: #### 2 4356-8 #### [facility] CLIA [id number] [address] Nitrite Ql (U) Negative Normal Negative [facility] Comment on above: Order Comment: Speci men Type: URINE SPECIMEN Ordering Facility: [facility] Address: [address] [place] [address] Performed By: #### 2 4356-8 #### [facility] CLIA [id number] [address] pH (U) 6.0 [pH] Normal 5.0-8.0 [facility] Comment on above: Order Comment: Speci men Type: URINE SPECIMEN Ordering Facility: [facility] Address: [address] [place] [address] Performed By: #### 2 4356-8 #### [facility] CLIA [id number] [address] Protein (U) [Mass/Vol] Trace Normal Trace , Negative [facility] Comment on above: Order Comment: Speci men Type: URINE SPECIMEN Ordering Facility: [facility] Address: [address] [place] [address] Performed By: #### 2 4356-8 #### [facility] CLIA [id number] [address] RBC LM.HPF (Urine sed) [#/Area] 3-5 /HPF Abnormal 0-3 /HPF [facility] Comment on above: Order Comment: Speci men Type: URINE SPECIMEN Ordering Facility: [facility] Address: [address] [place] [address] Performed By: #### 2 4356-8 #### [facility] CLIA [id number] [address] Specific gravity (U) [Rel density] 1.030 Normal 1.005-1.030 [facility] Comment on above: Order Comment: Speci men Type: URINE SPECIMEN Ordering Facility: [facility] Address: [address] [place] [address] Performed By: #### 2 4356-8 #### [facility] CLIA [id number] [address] Urobilinogen Ql (U) 1+ Abnormal Negative [facility] Comment on above: Order Comment: Speci men Type: URINE SPECIMEN Ordering Facility: [facility] Address: [address] [address] Performed By: #### 2 4356-8 #### [facility] CLIA [id number] [address] WBC LM.HPF (Urine sed) [#/Area] 0-5 /HPF Normal 0-5 /HPF [facility] Comment on above: Order Comment: Speci men Type: URINE SPECIMEN Ordering Facility: [facility] Address: [address] [place] [address] Performed By: #### 2 4356-8 #### [facility] CLIA [id number] [address] AMB POC HEMOGLOBIN A1Con HbA1c (Bld) [Mass fraction] 7.020 % - 5.6 % [facility] HbA1c (Bld) [Mass fraction]o n 09-10-2022 [facility] - Chemistry and C hemistry - challengeOrdered By: Heather Love on 08-29-2022 Beta HCG ( test) Ql Negative Negative [facility] Comment on above: Please note: Very di lute urine specimens, as indicated by a low specific gravity, may not contain commercial representative levels of hCG. If is still suspected, a first morning urine specimen should be collected 48 hours later and tested. Beta HCG ( test) Ql (U) is the most common reason for HCG in urine, although choriocarcinoma, hydatidiform mole, and certain nontrophoblastic malignancies also result in detectable urinary HCG levels. Sensitivity = 20mIU/mL. [facility] No Panel InformationOrdered By: Heather Love on 08-29-2022 [facility] Urinalysis complete panel (U )Ordered By: Isamar Peralta on 08-29-2022 Bacteria LM.HPF (Urine sed) [#/Area] Few Abnormal Negative /HPF [facility] Bilirubin Ql (U) Negative Negative mg/dL [facility] Clarity (U) Extra Turbid Abnormal Clear [facility] Color (U) Dark Brown Abnormal Lt. Yellow [facility] Epithelial cells.squamous LM.HPF (Urine sed) [#/Area] Negative [facility] Glucose Ql (U) Normal Normal (<70) mg/dL [facility] Hemoglobin Ql (U) >1.0 Abnormal Negative mg/dL [facility] Hyaline casts Auto (Urine sed) [#/Area] Negative Negative /LPF [facility] Interpretation and review of laboratory results Abnormal [facility] Ketones (U) [Mass/Vol] Trace Abnormal Negat debra mg/dL [facility] Leukocyte esterase Test strip Ql (U) 500 Abnormal Negative Marty/uL [facility] Nitrite Ql (U) Negative Negative [facility] pH (U) 5.5 [pH] 5.0 - 8.0 pH [facility] Protein (U) [Mass/Vol] 100 mg/dL Abnormal Negative [facility] RBC LM.HPF (Urine sed) [#/Area] /[HPF] Abnormal [facility] Specific gravity (U) [Rel density] 1.012 1.005 - 1.030 [facility] Urobilinogen (U) [Mass/Vol] Normal Normal (0-1) mg/dL [facility] WBC LM.HPF (Urine sed) [#/Area] /[HPF] Abnormal [facility] AMB POC HEMOGLOBIN A1Con HbA1c (Bld) [Mass fraction] 7.3 % Abnormal 4.4 - 6.5 % [facility] HbA1c (Bld) [Mass fraction]o n 06-09-2022 Interpretation and review of laboratory results Abnormal [facility] CNOVon 06-02-2022 CNOV Office Visit (ZHENT ) ----- FRED MELGOZA ([id number]) 2000 F Date Time Provider Department 06/02/22 1:00 PM KEN GOMEZ During your visit today, we recorded the following information about you: Blood pressure Weight Height Last Period 131/84 118.9 kg 1.676 m 05/13/22 Ken Gomez APRN.[employer]OU[employer] PH[employer]ENG[employer] 06/02/2022 2:08 PM Signed Fred is a 22 year old who presents for an annual gynecologic exam without complaints. Menses: monthly Contraception: combined hormonal contraceptives HPV vaccine: N/A Last Pap: 04/25/2020 normal HPV: N/A History of abnormal pap: No Last mammogram: never Sexually active: Yes Pain with intercourse: No Postcoital bleeding: No OB History T0 L0 SAB0 IAB0 Ectopic0 Multiple0 Live Births0 Endoscopy Rn History LMP: 05/13/2022 (Approximate), Having periods Age at Menarche: Age at First : Age at Menopause: Endoscopy Rn History Comments: Sexual Activity: Yes; Male Contraception: [...] external genitalia normal, normal Bartholin's glands, urethra, [place]'s glands, no vulvar lesions, no cervical lesions, [...] up one year or sooner as needed MARY Bonilla APRN.CNP 06/02/2022 1:13 PM Signed ACOG Screening Guidelines The following health screening schedule is recommended by the [employer] (ACOG). Some of these tests may be ordered or performed by your primary care doctor. Pap test screening The pap test looks at cells on the cervix (the opening from the vagina to the uterus) to look for cancer or pre-cancerous changes. These changes are caused by the human papillomavirus (HPV). Studies estimate that half of all women will test positive for this virus within 3 years of starting sexual activity. For young women with a normal immune system, 90% of HPV infections will resolve within 2 years. There is a vaccine available against some forms of HPV. This is recommended for girls and women age 9-45. For ages 9-14, two injections are given at 0 and 6 months. For ages 15-45, three injections are given at 0,2 and 6 months. Because this vaccine does not protect against all HPV types which can cause cervical cancer, women who received the vaccine still need pap tests. Pap smear screening should be started at age 21. The pap test should be done every 3 years from age 21-29. From age 30-65, pap smears can be done every 5 years if HPV test is negative or every 3 years if HPV testing is not done. For women over the age of 65, ACOG recommends against screening women who have had adequate prior screening and are not otherwise at high risk for cervical cancer. Women who have had a hysterectomy also do not need routine pap smear screening unless the pap smear (more content not included)... Normal [facility] CNOVon 05-15-2022 CNOV Office Visit ([facility] R) ----- FRED MELGOZA ([id number]) 2000 F Date Time Provider Department 05/15/22 12:30 PM TIKI NUNEZ During your visit today, we recorded the following information about you: JOBY Fernandez 05/15/2022 12:57 PM Signed [facility] Consultation Note Genetic Counselor: Tiki Nunez MS, [facility] [place]: Fred Melgoza Patient Name and confirmed at initiation of visit HIGH LEVEL SUMMARY: The patient's family history is not suggestive of a hereditary cancer syndrome. Genetic testing is not indicated at this time. The patient was encouraged to keep us updated with any changes to her personal or family history of cancer as this may affect her risk assessment. IDENTIFICATION AND CHIEF COMPLAINT: Dr. Fernanda Cerda requested a consultation for genetic counseling and risk assessment for Fred Melgoza, a 22 year old female, for discussion of her family history of cancer. She presents to clinic today, accompanied by her mother, to discuss the possibility of a genetic predisposition to cancer, and to further clarify her risks, as well as her family members' risks for cancer. HISTORY OF PRESENT ILLNESS: Fred Melgoza is a 22 year old female with [...] is common in the general population. The [place] [employer] estimates that 1 in every [...] ovarian cancer, male breast cancer, and Ashkenazi Faith ancestry increase the likelihood of an inherited [...] greater than 50% of which was spent [id number] counseling. This plan is being carried out under the oversight of Dr. Nicole Angeles. This note will also be sent to the referring provider via the electronic medical record. Tiki Nunez MS, [facility] [place] Licensed Genetic Counselor [facility] CC: Dr. Fernanda Mendoza Referring Provider: FERNANDA CERDA [[id number]] Allergies As of Date: 05/15/2022 Noted Allergy Reaction NORETHINDRONE AC-ETH ESTRADIOL 11/04/2020 14 - Other: See Comments NORGESTIMATE-ETHINYL ESTRADIOL 10/02/2019 18 - Angioedema PREDNISONE 11/04/2020 14 - Other: See Comments ZYRTEC (CETIRIZINE) 10/03/2020 7 - Swelling Date Reviewed: 12/01/2021 Reviewed by: Ken Landers MA - Fully Assessed Primary Visit Diagnosis:Family history of malignant neoplasm of breast [Z80.3] Prescriptions as of 05/15/2022 - mupirocin (BACTROBAN) 2 % ointment Use 2 g in the nose. - naproxen (NAPROSYN) 500 mg tablet Take 500 mg by mouth twice daily with meals. - pantoprazole DR (PROTONIX) 4 (more content not included)... Normal [facility] CNOVon 12-01-2021 CNOV Office Visit ([facility] ) ----- FRED MELGOZA ([id number]) 2000 F Date Time Provider Department 12/01/21 10:00 AM FERNANDA CERDAGMAURICIO During your visit today, we recorded the following information about you: Blood pressure Weight Height 118/78 115.2 kg 1.676 m Fernanda Cerda MD, MD 12/01/2021 11:04 AM Signed CHIEF COMPLAINT: ED Follow Up (R breast [...] her to high risk clinic if necessary Fernanda Cerda MD Referring Provider: SELF [[id number]] Allergies As of Date: 12/01/2021 Noted Allergy Reaction NORETHINDRONE AC-ETH ESTRADIOL 11/04/2020 14 - Other: See Comments NORGESTIMATE-ETHINYL ESTRADIOL 10/02/2019 18 - Angioedema PREDNISONE 11/04/2020 14 - Other: See Comments ZYRTEC (CETIRIZINE) 10/03/2020 7 - Swelling Date Reviewed: 12/01/2021 Reviewed by: Ken Landers MA - Fully Assessed Reason for Visit: ED Follow Up [973] Cmt: R breast abcess is doing better just has discoloration Primary Visit Diagnosis:Abscess of right breast [N61.1] Other Visit Diagnosis:Family history of breast cancer in mother [Z80.3] Prescriptions as of 12/01/2021 - mupirocin (BACTROBAN) 2 % ointment Use 2 g in the nose. - naproxen (NAPROSYN) 500 mg tablet Take 500 mg by mouth twice daily with meals. - pantoprazole DR (PROTONIX) 40 mg tablet Take 40 mg by mouth twice daily. - glycopyrrolate (ROBINUL) 1 mg tablet Take 2 mg by mouth twice daily. - TRULICITY 1.5 mg/0.5 mL pen injector Inject 3 mg subcutaneously one time a week. - metformin HCl (METFORMIN ORAL) Take 500 mg by mouth twice daily. Problem List As Of Date: 12/01/2021 (None) Disposition: Return if symptoms worsen or fail to improve. Follow-up and Disposition History for Encounter Date Provider Department Center 12/01/2021 [id number]-EOYHFERNANDA CERDAGWANDRE CATHI BANERJEE Encounter Status:Closed by FERNANDA CERDA on 12/01/21 [facility] ED Provider Noteon 08-30-202 2 ED Provider Note [facility] EMERGENCY DEPT eMERGENCY dEPARTMENT eNCOUnter Pt Name: Fred Melgoza Birthdate 2000 Date of evaluation: 11/04/2021 Provider: Jose G Emanuel MD CHIEF COMPLAINT Chief Complaint Patient presents with Abscess Pt stated she has an abscess on her right breast. Pt stated it is more painful at night. HISTORY OF PRESENT ILLNESS (Location/Symptom, Timing/Onset,Context/Sett ing, Quality, Duration, Modifying Factors, Severity) Note limiting factors. HPI Fred Melgoza is a 21 y.o. female who presents to the emergency department for evaluation of painful, erythematous, tender area on right breast. Nursing Notes were reviewed. REVIEW OF SYSTEMS (2+ for4; 10+ for level 5) Review of Systems Constitutional: Negative for chills and fever. HENT: Negative for sinus pressure and sinus pain. Respiratory: Negative for cough and shortness of breath. Cardiovascular: Negative for chest pain, palpitations and leg swelling. Gastrointestinal: Negative for nausea and vomiting. Genitourinary: Negative for difficulty urinating and flank pain. Musculoskeletal: Negative for back pain and neck pain. Skin: Negative for pallor and rash. Neurological: Negative for dizziness and headaches. Psychiatric/Behavioral: Negative for agitation and confusion. PAST MEDICAL HISTORY Past Medical History: Diagnosis Date Depression Diabetes mellitus (HCC) SURGICALHISTORY No past surgical history on file. CURRENT MEDICATIONS Previous Medications ALBUTEROL SULFATE HFA 108 (90 BASE) MCG/ACT INHALER Inhale 2 puffs into the lungs 4 times daily as needed for Wheezing or Shortness of Breath BLOOD GLUCOSE TEST STRIPS (ONETOUCH ULTRA) STRIP TEST GLUCOSE ONCE DAILY CYCLOBENZAPRINE (FLEXERIL) 10 MG TABLET TAKE 1 TABLET BY MOUTH THREE TIMES DAILY NEEDED FOR MUSCLE SPASMS FLUTICASONE (FLONASE) 50 MCG/ACT NASAL SPRAY SHAKE LIQUID AND USE 1 SPRAY IN EACH NOSTRIL DAILY GLUCOSE MONITORING (FREESTYLE FREEDOM) KIT Type II DM, E11.9, Glucometer as allowed by insurance,Test once a day. GLUCOSE MONITORING KIT (FREESTYLE) MONITORING KIT Type II DM, E11.9, Glucometer as allowed by insurance,Test once a day. GLYCOPYRROLATE (ROBINUL) 2 MG TABLET LANCETS MIS Test once a day. Type II DM, E11.9 METFORMIN (GLUCOPHAGE) 1000 MG TABLET TAKE 1 TABLET BY MOUTH TWICE DAILY WITH MEALS NAPROXEN (NAPROSYN) 250 MG TABLET TAKE 1 TABLET BY MOUTH TWICE DAILY WITH MEALS PANTOPRAZOLE (PROTONIX) 40 MG TABLET Take 1 tablet by mouth in the morning and at bedtime SPACER/AERO-HOLDING CHAMBERS (VALVED HOLDING CHAMBER) PARAM USE WITH INHALATION MEDICATION DIRECTED TRULICITY 3 MG/0.5ML SOPN INJECT 3 MG INTO THE SKIN ONCE A WEEK Other, Sprintec 28 [norgestimate-eth estradiol], and Zyrtec [cetirizine] FAMILY HISTORY Family History Problem Relation Age of Onset Diabetes Mother Heart Failure Mother High Blood Pressure Mother No Known Problems Father SOCIAL HISTORY Social History Socioeconomic History Marital status: Tobacco Use Smoking status: Never Smokeless tobacco: Never Vaping Use Vaping Use: Never used Substance and Sexual Activity Alcohol use: Never Drug use: Never SCREENINGS Rohini Coma Scale Eye Opening: Spontaneous Best Verbal Response: Oriented Best Motor Response: Obeys commands Rohini Coma Scale Score: 15 PHYSICAL EXAM (5+ for level 4, 8+ for level 5) ED Triage Vitals BP Temp Temp Source Heart Rate Resp SpO2 Height Weight 11/04/21 2104 11/04/21 2104 11/04/21 2104 11/04/21 2104 11/04/21 2104 11/04/21 2104 11/04/21 2106 11/04/21 2106 (!) 155/104 97.4 ?F (36.3 ?C) Temporal (!) 103 16 100 % 5' 6 (1.676 m) 249 lb (112.9 kg) Physical Exam Constitutional: General: She is not in acute distress. Appearance: Normal appearance. She is not ill-appearing, toxic-appearing or diaphoretic. HENT: Head: Normocephalic and atraumatic. Nose: No congestion or rhinorrhea. Mouth/Throat: Mouth: Mucous membranes are moist. Eyes: Extraocular Movements: Extraocular movements intact. Conjunctiva/sclera: Conjunctivae normal. Pupils: Pupils are equal, round, and reactive to light. Cardiovascular: Rate and Rhythm: Normal rate and regular rhythm. Pulses: Normal pulses. Heart sounds: No murmur heard. No friction rub. No gallop. Pulmonary: Effort: No respiratory distress. Breath sounds: No stridor. No wheezing, rhonchi or rales. Chest: Chest wall: No tenderness. Abdominal: General: There is no distension. Palpations: Abdomen is soft. Tenderness: There is no abdominal tenderness. There is no right CVA tenderness, left CVA tenderness, guarding or rebound. Musculoskeletal: General: No tenderness or deformity. Normal range of motion. Cervical back: Normal range of motion. No rigidity. No muscular tenderness. Right lower leg: No edema. Left lower leg: No edema. Lymphadenopathy: Cervical: No cervical adenopathy. Skin: General: Skin i (more content not included)... Normal [facility] Basic Metabolic Panelon - Calcium [Mass/Vol] 9.6 mg/dL Normal 8.4-10.4 [facility] Comment on above: Performed By: #### T SH5, LIPD2, BMP3, HEMOG #### [facility] [address] [place] [address] Glucose [Mass/Vol] 104 mg/dL High 70-100 [facility] Comment on above: Performed By: #### T SH5, LIPD2, BMP3, HEMOG #### [facility] [address] [place] [address] Anion gap [Moles/Vol] 9 mmol/L Normal 3-13 [facility] Comment on above: Performed By: #### T SH5, LIPD2, BMP3, HEMOG #### [facility] [address] [place] [address] CO2 [Moles/Vol] 24 mmol/L Normal 22-30 [facility] Comment on above: Performed By: #### T SH5, LIPD2, BMP3, HEMOG #### [facility] [address] [place] [address] Creatinine [Mass/Vol] 0.73 mg/dL Normal 0.52-1.25 [facility] Comment on above: Performed By: #### T SH5, LIPD2, BMP3, HEMOG #### [facility] [address] [place] [address] eGFR OTHER > 90.0 Normal >60 [facility] Comment on above: Result Comment: KDIG O guidelines provide the following GFR categories: Stage GFR(ml/min/1.73 m2) Terms G1 >=90 Normal or high G2 60-89 Mildly decreased* G3a 45-59 Mildly to moderately decreased G3b 30-44 Moderately to severely decreased G4 15-29 Severely decreased G5 <15 Kidney failure *Relative to young adult level. In the absence of evidence of kidney damage, neither GFR category G1 nor G2 fulfill the criteria for CKD. The CKD-EPI equation is validated in individuals 18 years of age and older. Currently the best equation for estimating glomerular filtration rate (GFR) from serum creatinine in children is the Bedside Mckeon equation. It is less accurate in patients with extremes of muscle mass, restriction of dietary protein, ingestion of creatine, extra-renal metabolism of creatinine, or treatment with medications that affect renal tubular creatinine secretion. Performed By: #### T SH5, LIPD2, BMP3, HEMOG #### [facility] [address] [place] [address] GFR/1.73 sq M.predicted among blacks MDRD (S/P/Bld) [Vol rate/Area] mL/min/{1.73_m2} Normal >60 [facility] Comment on above: Performed By: #### T SH5, LIPD2, BMP3, HEMOG #### [facility] [address] [place] [address] Urea nitrogen [Mass/Vol] 13 mg/dL Normal 9-20 [facility] Comment on above: Performed By: #### T SH5, LIPD2, BMP3, HEMOG #### [facility] [address] [place] [address] Potassium [Moles/Vol] 4.1 mmol/L Normal 3.5-5.1 [facility] Comment on above: Performed By: #### T SH5, LIPD2, BMP3, HEMOG #### [facility] [address] [place] [address] Chloride [Moles/Vol] 103 mmol/L Normal 98-107 [facility] Comment on above: Performed By: #### T SH5, LIPD2, BMP3, HEMOG #### [facility] [address] [place] [address] Sodium [Moles/Vol] 137 mmol/L Normal 135-145 [facility] Comment on above: Performed By: #### T SH5, LIPD2, BMP3, HEMOG #### [facility] [address] [place] [address] Anion gap [Moles/Vol] 9 mmol/L 3 - 13 mmol/L [facility] Calcium [Mass/Vol] 9.6 mg/dL 8.4 - 10. 4 mg/dL [facility] Chloride [Moles/Vol] 103 mmol/L 98 - 10 7 mmol/L [facility] CO2 [Moles/Vol] 24 mmol/L 22 - 30 mmol/L [facility] Creatinine [Mass/Vol] 0.73 mg/dL 0.52 - 1.25 mg/dL [facility] EGFR IF NonAfrican [place] >90.0 >60 mL/min [facility] Comment on above: KDIGO guidelines pro vide the following GFR categories: Stage GFR(ml/min/1.73 m2) Terms G1 >=90 Normal or high G2 60-89 Mildly decreased* G3a 45-59 Mildly to moderately decreased G3b 30-44 Moderately to severely decreased G4 15-29 Severely decreased G5 <15 Kidney failure *Relative to young adult level. In the absence of evidence of kidney damage, neither GFR category G1 nor G2 fulfill the criteria for CKD. The CKD-EPI equation is validated in individuals 18 years of age and older. Currently the best equation for estimating glomerular filtration rate (GFR) from serum creatinine in children is the Bedside Mckeon equation. It is less accurate in patients with extremes of muscle mass, restriction of dietary protein, ingestion of creatine, extra-renal metabolism of creatinine, or treatment with medications that affect renal tubular creatinine secretion. GFR/1.73 sq M.predicted among blacks MDRD (S/P/Bld) [Vol rate/Area] mL/min/{1.73_m2} >60 mL/min [facility] Glucose [Mass/Vol] 104 mg/dL High 70 - 100 mg/dL [facility] Potassium [Moles/Vol] 4.1 mmol/L 3.5 - 5.1 mmol/L [facility] Sodium [Moles/Vol] 137 mmol/L 135 - 145 mmol/L [facility] Urea nitrogen (BldV) [Mass/Vol] 13 mg/dL 9 - 20 mg/dL [facility] CBCon 05-23-2021 Hemoglobin.gastrointes tinal spec 1 Ql (Stl) 12.2 g/dL 11.7 - 16.0 g/dL [facility] Interpretation and review of laboratory results Abnormal [facility] MCHC (RBC) [Mass/Vol] 31.8 % Low 32.0 - 36.0 % [facility] Platelet distribution width (Bld) [Ratio] 15.7 % High 11.5 - 14.5 % [facility] Test Performed by [facility], [address] , [address] LAB [facility] Hemogramon 05-23-2021 Erythrocyte distribution width (RBC) [Ratio] 15.7 % High 11.5-14.5 [facility] Comment on above: Performed By: #### T SAHRA5, LIPD2, BMP3, HEMOG #### [facility] [address] [place] [address] Hemoglobin (Bld) [Mass/Vol] 12.2 g/dL Normal 11.7-16.0 [facility] Comment on above: Performed By: #### T SH5, LIPD2, BMP3, HEMOG #### [facility] [address] [place] [address] MCHC 31.8 % Low 32.0-36.0 [facility] Comment on above: Performed By: #### T SH5, LIPD2, BMP3, HEMOG #### [facility] [address] [place] [address] Hematocrit (Bld) [Volume fraction] 38.5 % Normal 35.0-47.0 [facility] Comment on above: Performed By: #### T SH5, LIPD2, BMP3, HEMOG #### [facility] [address] [place] [address] MCH (RBC) [Entitic mass] 23.3 pg Low 26.0-34.0 [facility] Comment on above: Performed By: #### T SH5, LIPD2, BMP3, HEMOG #### [facility] [address] [place] [address] MCV (RBC) [Entitic vol] 73.3 fL Low 79.0-98.0 [facility] Comment on above: Performed By: #### T SH5, LIPD2, BMP3, HEMOG #### [facility] [address] [place] [address] Platelet mean volume (Bld) [Entitic vol] 8.5 fL Normal 7.4-10.4 [facility] Comment on above: Performed By: #### T SH5, LIPD2, BMP3, HEMOG #### [facility] [address] [place] [address] Platelets (Bld) [#/Vol] 286 10*3/uL Normal 140-440 [facility] Comment on above: Performed By: #### T SH5, LIPD2, BMP3, HEMOG #### [facility] [address] [place] [address] RBC (Bld) [#/Vol] 5.25 10*6/uL High 3.80-5.20 [facility] Comment on above: Performed By: #### T SH5, LIPD2, BMP3, HEMOG #### [facility] [address] [place] [address] WBC (Bld) [#/Vol] 10.0 10*3/uL Normal 3.6-10.7 [facility] Comment on above: Performed By: #### T SH5, LIPD2, BMP3, HEMOG #### [facility] [address] [place] [address] Lipid Panelon 05-23-2021 Chol/HDL 5 Normal [facility] Comment on above: Result Comment: Ref Range: < 3 Low Risk for CHD 3-6 Mod Risk for CHD > 6 High Risk for CHD Performed By: #### T SH5, LIPD2, BMP3, HEMOG #### [facility] [address] [place] [address] Cholesterol in HDL [Mass/Vol] 32 mg/dL Low 40-60 [facility] Comment on above: Performed By: #### T SH5, LIPD2, BMP3, HEMOG #### [facility] [address] [place] [address] Low Density Lipoprotein 98 mg/dL Normal <100 [facility] Comment on above: Performed By: #### T SH5, LIPD2, BMP3, HEMOG #### [facility] [address] [place] [address] Triglyceride [Mass/Vol] 146 mg/dL Normal <150 [facility] Comment on above: Performed By: #### T SH5, LIPD2, BMP3, HEMOG #### [facility] [address] [place] [address] Cholesterol [Mass/Vol] 159 mg/dL Normal < 200 [facility] Comment on above: Performed By: #### T SH5, LIPD2, BMP3, HEMOG #### [facility] [address] [place] [address] Cholesterol [Mass/Vol] 159 mg/dL <200 [facility] Cholesterol in HDL [Mass/Vol] 32 mg/dL Low 40 - 60 mg/dL [facility] Cholesterol in LDL [Mass/Vol] 98 mg/dL <100 [facility] Cholesterol.total/Chol esterol in HDL [Mass ratio] 5 {ratio} [facility] Comment on above: Ref Range: < 3 Low Risk for CHD 3-6 Mod Risk for CHD > 6 High Risk for CHD Triglyceride [Mass/Vol] 146 mg/dL <150 [facility] No Panel Informationon 05-23 Interpretation and review of laboratory results Abnormal [facility] Test Performed by [facility], [facility] [address] , [address] LAB [facility] TSHon 05-23-2021 TSH Qn 1.678 u[IU]/mL 0.465 - 4.680 u[IU]/mL [facility] Test Performed by [facility], [facility] [address] LAB [facility] Thyroid Stim. Hormoneon 05-06 Thyroid Stim. Hormone 1.678 u[IU]/mL Normal 0.465-4.68 0 [facility] Comment on above: Performed By: #### T SH5, LIPD2, BMP3, HEMOG #### [facility] [address] [place] [address] CR Spine Cervical 2 or 3 Vie wson 04-18-2021 CR Spine Cervical 2 or 3 Views Patient Name: FRED MELGOZA Diagnostic Radiology ACCESSION EXAM DATE/TIME PROCEDURE ORDERING PROVIDER [id number] 04/18/2021 12:43 EST CR Spine Cervical 2 or 3 BERTHA, DISPLAY MAKER,VALERIO Views CPT code 27960 Reason For Exam (CR Spine Cervical 2 or 3 Views) Dorsalgia, unspecified Report CERVICAL SPINE SERIES CLINICAL INDICATION: Right-sided neck pain after fall AP, lateral, and odontoid views of the cervical spine were obtained. COMPARISON: CT cervical spine dated 09/18/2019. FINDINGS: The alignment of the cervical spine is normal. No fractures are seen. There is no prevertebral soft tissue swelling. The dens and lateral masses of the C1 vertebral body appear normal on the odontoid view. Intervertebral disc spaces are relatively well-preserved. IMPRESSION: No evidence of fracture or dislocation of the cervical spine. No significant degenerative changes. Report Dictated on Workstation: [employer] Final Dictating Physician: MD KELLER JONATHAN R Signed Date and Time: 04/19/2021 5:21 pm Signed by: MD KELLER JONATHAN R Transcribed Date and Time: 04/19/2021 5:22 [facility] CR Spine Lumbosacral 2 or 3 Viewson 04-18-2021 CR Spine Lumbosacral 2 or 3 Views Patient Name: FRED MELGOZA Diagnostic Radiology ACCESSION EXAM DATE/TIME PROCEDURE ORDERING PROVIDER [id number] 04/18/2021 12:43 EST CR Spine Lumbosacral 2 AUSTIN CRUZ,VALERIO or 3 Views CPT code 87189 Reason For Exam (CR Spine Lumbosacral 2 or 3 Views) Low back pain, unspecified Report CLINICAL INFORMATION: Low back pain. Frontal, bilateral oblique , L5/S1 spot view and lateral views of the lumbar spine were obtained. There are 5 lumbar type vertebrae. Bone density appears normal. Mild loss of height of L1 appears similar to prior sagittal reconstructions from a CT dated 08/01/2020. The other lumbar vertebral heights are within normal limits. No spondylolisthesis or spondylolysis is noted. Disc spaces are maintained. No fracture is noted. IMPRESSION: IMPRESSION: No acute bony abnormality. Report Dictated on Final Dictating Physician: MD GARCIA LAURA Signed Date and Time: 04/18/2021 3:34 pm Signed by: MD GARCIA LAURA Transcribed Date and Time: 04/18/2021 3:35 [facility] XR LUMBAR SPINE (2-3 VIEWS)o n 04-18-2021 Patient Name: FRED GRAY Diagnostic Radiology ACCESSION EXAM DATE/TIME PROCEDURE ORDERING PROVIDER [id number] 04/18/2021 12:43 EST CR Spine Lumbosacral 2 CRUZ, DISPLAY MAKER,VLAERIO or 3 Views CPT code 77446 Reason For Exam (CR Spine Lumbosacral 2 or 3 Views) Low back pain, unspecified Report CLINICAL INFORMATION: Low back pain. Frontal, bilateral oblique , L5/S1 spot view and lateral views of the lumbar spine were obtained. There are 5 lumbar type vertebrae. Bone density appears normal. Mild loss of height of L1 appears similar to prior sagittal reconstructions from a CT dated 08/01/2020. The other lumbar vertebral heights are within normal limits. No spondylolisthesis or spondylolysis is noted. Disc spaces are maintained. No fracture is noted. IMPRESSION: IMPRESSION: No acute bony abnormality. Report Dictated on --- Final --- Dictating Physician: MD GARCIA LAURA Signed Date and Time: 04/18/2021 3:34 pm Signed by: MD GARCIA LAURA Transcribed Date and Time: 04/18/2021 3:35 [facility] Telma Garcia MD - 04/18/2021 Patient Name: FRED MELGOZA Diagnostic Radiology ACCESSION EXAM DATE/TIME PROCEDURE ORDERING PROVIDER [id number] 04/18/2021 12:43 EST CR Spine Lumbosacral 2 CRUZ, DISPLAY MAKER,VALERIO or 3 Views CPT code 04772 Reason For Exam (CR Spine Lumbosacral 2 or 3 Views) Low back pain, unspecified Report CLINICAL INFORMATION: Low back pain. Frontal, bilateral oblique , L5/S1 spot view and lateral views of the lumbar spine were obtained. There are 5 lumbar type vertebrae. Bone density appears normal. Mild loss of height of L1 appears similar to prior sagittal reconstructions from a CT dated 08/01/2020. The other lumbar vertebral heights are within normal limits. No spondylolisthesis or spondylolysis is noted. Disc spaces are maintained. No fracture is noted. IMPRESSION: IMPRESSION: No acute bony abnormality. Report Dictated on --- Final --- Dictating Physician: MD GARCIA LAURA Signed Date and Time: 04/18/2021 3:34 pm Signed by: MD GARCIA LAURA Transcribed Date and Time: 04/18/2021 3:35 [facility] Work Phone: Radiology Study observation (narrative) [facility] Work Phone: XR LUMBAR SPINE (2-3 VIEWS)O rdered By: Telma Garcia on 04-18-2021 [facility] Work Phone: ED Provider Noteon ED Provider Note [facility] Patient: Fred Melgoza : 2000 Date of Evaluation: 03/05/2021 ED A[facility] Provider: AMADO Hassan Chief Complaint Chief Complaint Patient presents with ? Urticaria patient c/o facial hives that she noticed today. denies itching. also c/o cough. denies covid concern. denies environmental changes. speaking full sentences, no tongue swelling/airway concern in triage. [place] I was wearing a KN95 mask for the entirety of this encounter. Fred Melgoza is a 21 y.o. female who presents to the emergency department for evaluation of itching and redness on the patient's face. Patient states she noticed this around 6 PM today. Denies any new foods, detergents, soaps, or products on her face. Patient states she is allergic to gain detergent as well as Zyrtec. No shortness of breath or chest pain. Patient is not having difficulty swallowing. No sore throat. Patient states she has had a cough, coughing more frequently as well as nausea and vomited once today. Patient denies aggravating/alleviating factors. Patient denies CP, SOB, fevers, aches, chills, frequency, urgency, constipation or diarrhea. ROS: Review of Systems At least 10 systems reviewed and otherwise acutely negative except as in the [place]. Past History Past Medical History: Diagnosis Date ? Depression ? Diabetes mellitus (HCC) History reviewed. No pertinent surgical history. Social History Socioeconomic History ? Marital status: Spouse name: None ? Number of children: None ? Years of education: None ? Highest education level: None Occupational History ? None Tobacco Use ? Smoking status: Never Smoker ? Smokeless tobacco: Never Used Vaping Use ? Vaping Use: Never used Substance and Sexual Activity ? Alcohol use: Never ? Drug use: Never ? Sexual activity: None Other Topics Concern ? None Social History Narrative ? None Social Determinants of Health Financial Resource Strain: ? Difficulty of Paying Living Expenses: Not on file Food Insecurity: ? Worried About Running Out of Food in the Last Year: Not on file ? Ran Out of Food in the Last Year: Not on file Transportation Needs: ? Lack of Transportation (Medical): Not on file ? Lack of Transportation (Non-Medical): Not on file Physical Activity: ? Days of Exercise per Week: Not on file ? Minutes of Exercise per Session: Not on file Stress: ? Feeling of Stress : Not on file Social Connections: ? Frequency of Communication with Friends and Family: Not on file ? Frequency of Social Gatherings with Friends and Family: Not on file ? Attends Christianity Services: Not on file ? Active Member of Clubs or Organizations: Not on file ? Attends Club or Organization Meetings: Not on file ? Marital Status: Not on file Intimate Partner Violence: ? Fear of Current or Ex-Partner: Not on file ? Emotionally Abused: Not on file ? Physically Abused: Not on file ? Sexually Abused: Not on file Housing Stability: ? Unable to Pay for Housing in the Last Year: Not on file ? Number of Places Lived in the Last Year: Not on file ? Unstable Housing in the Last Year: Not on file Medications/Allergies Discharge Medication List as of 03/05/2021 9:16 PM CONTINUE these medications which have NOT CHANGED Details metFORMIN (GLUCOPHAGE) 1000 MG tablet TAKE 1 TABLET BY MOUTH TWICE DAILY WITH MEALS, Disp-60 tablet, R-5Normal pantoprazole (PROTONIX) 40 MG tablet Take 1 tablet by mouth every morning (before breakfast), Disp-30 tablet, R-5Normal methylPREDNISolone (MEDROL DOSEPACK) 4 MG tablet Take 4 mg by mouth See Admin Instructions Take by mouth.Historical Med glucose monitoring (FREESTYLE FREEDOM) kit Disp-1 kit, R-0, NormalType II DM, E11.9, Glucometer as allowed by insurance,Test once a day. blood glucose monitor strips type II Dm, E11.9, test once per day, Disp-100 strip, R-5, Normal Lancets MISC Disp-100 each, R-3, NormalTest once a day. Type II DM, E11.9 Dulaglutide (TRULICITY) 1.5 MG/0.5ML SOPN Inject 1.5 mg into the skin once a week, Disp-4 pen, R-3Normal glycopyrrolate (ROBINUL) 1 MG tablet Take 2 mg by mouth 2 times daily Historical Med albuterol sulfate HFA 108 (90 Base) MCG/ACT inhaler Inhale 2 puffs into the lungs 4 times daily as needed for Wheezing or Shortness of Breath, Disp-1 Inhaler, R-0Normal Vit-Fe Fumarate-FA ( VITAMIN PO) Take by mouthHistorical Med ibuprofen (ADVIL;MOTRIN) 600 MG tablet Take 1 tablet by mouth 4 times daily as needed for Pain, Disp-40 tablet, R-0Normal glucose monitoring kit (FREESTYLE) monitoring kit Disp-1 kit, R-0, NormalType II DM, E11.9, Glucometer as allowed by insurance,Test once a day. fluticasone (FLONASE) 50 MCG/ACT nasal spray 1 spray by Nasal route daily, Disp-1 Bottle, R-5Normal Allergies Allergen Reactions ? Other Anaphylaxis, Swelling and Rash Gain Fabric product ? (more content not included)... Normal [facility] CR Wrist Complete 3 Views [place] 01-17-2021 CR Wrist Complete 3 Views Left Patient Name: FRED MELGOZA Diagnostic Radiology ACCESSION EXAM DATE/TIME PROCEDURE ORDERING PROVIDER [id number] 01/17/2021 13:20 EST CR Wrist Complete 3 JAIME D.O., MACIEJ M Views Left CPT code 67580 Reason For Exam (CR Wrist Complete 3 Views Left) lt wrist pain Report Left wrist: 01/17/2021. CLINICAL INFORMATION: Pain. FINDINGS: Three views of the left wrist were obtained. The bones are well-mineralized. There is no evidence of fracture or dislocation. There is fusion of the lunate and triquetrum which is a normal variant. 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 No acute abnormalities identified. Report Dictated on Final Dictating Physician: MD SWENSON RISA Signed Date and Time: 01/20/2021 12:50 pm Signed by: MD SWENSON RISA Transcribed Date and Time: 01/20/2021 12:51 Normal [facility] Office Visit (Urgent Care)on 01-15-2021 Follow-up visit Diagnoses/Problems Assessed Tendinitis (726.90) (M77.9) Orders Tendinitis Start: methylPREDNISolone 4 MG Oral Tablet Therapy Pack; take 1 tab as directed Rx By: Myah Mccoy; Dispense: 6 Days ; #:1 X 21 Tablet Pack; Refill: 0;For: Tendinitis; NORMA = N; Verified Transmission to [facility] 38193; Last Updated By: [employer]; 01/15/2021 4:42:13 PM Patient Discussion/Summary TENDINITIS, LEFT ARM - Suspect tendinitis or possibly shoulder impingement - Medrol Rx given - Brace for left wrist given with YAYA wrap - Ice the area - Continue with follow up with PCP tomorrow for further evaluation Red flags symptoms reviewed with patient and all questions answered. Patient or parent/guardian verbalized understanding and agreement with care plan as above. All in office testing reviewed with patient. If symptoms worsen or do not improve, patient is to follow up with PCP or report to the ER. Chief Complaint Left arm pain History of Present IllnessPatient c/o sharp pain in her left arm,, [...] in activity that she is aware of. Review of Systems All other systems have been reviewed and are negative for complaint. Past Medical History Problems No pertinent past medical history (V49.89) (Z78.9) Family History Mother No pertinent family history Father No pertinent family history Allergies NonMedication Other Adverse Reaction; Anaphylaxis;; Recorded By: Michelle Moraes; 06/29/2020 12:25:03 PM Steroids Current Meds Medication NameInstruction Fluconazole 150 MG Oral TabletTAKE 1 TABLET ONCE. MAY REPEAT IN 2 DAYS.. metFORMIN HCl TABS TABS Vitals Vital Signs Recorded: 15Jan2021 04:05PM Vkaltuxzocv25 F Heart Clxz359 Mpbfgjlk669 Aeriqziar25 Height5 ft 6 in Doluea582 lb 0.8 oz BMI Dllflrytte08.78 kg/m2 BSA Calculated2.25 O2 Gezzpeqfpm68 Vital signs were reviewed and are stable. Physical Exam GENERAL APPEARANCE: WD/WN, in no acute distress HEENT: Normocephalic and atraumatic. MMM. LUNGS: Breathing nonlabored. MUSC: LUE: There is pain with palpation of the tendons in the forearm. There is pain with flexion/extension/radial and ulnar deviation of the wrist in the forearm, and pain with pronation and supination against resistance also in the forearm. There is pain in the shoulder all the way down the arm with ROM exercises against resistance. Negative Phalen/Tinel. Negative Neer/Polo. FROM and 5/5 motor strength of BUEs. NEUROLOGIC: No focal sensory or motor deficits are noted. Gait is normal. PSYCHIATRIC: The patient is awake, alert, and oriented x3. SKIN: Warm, dry, and well perfused. Good turgor. No lesions, nodules or rashes are noted. Signatures Electronically signed by : Myah Mccoy PA-C; Jan 16 2021 6:45PM EST (Author) Normal [facility] - Microbiology an d Antimicrobial susceptibilityon 11-15-2020 T. vaginalis Ag IA Ql (Genital specimen) Negative Negative for Trichomonas Antigen [facility] Bacterial sialidase Ql (Unsp spec) Negative Negative for the presence of bacterial vaginosis. [facility] - Chemistry and C hemistry - challengeon 10-03-2020 HCG.beta subunit Qn m[IU]/mL 0.0 - 6. 0 mIU/mL [facility] - Microbiology an d Antimicrobial susceptibilityon 10-03-2020 Bacterial sialidase Ql (Unsp spec) Negative Negative for the presence of bacterial vaginosis. [facility] T. vaginalis Ag IA Ql (Genital specimen) Negative Negative for Trichomonas Antigen [facility] CR Chest PA/LATon 07-30-2020 CR Chest PA/LAT Patient Name: FRED GRAY Diagnostic Radiology ACCESSION EXAM DATE/TIME PROCEDURE ORDERING PROVIDER [id number] 07/30/2020 15:12 EDT CR Chest PA and LAT MACIEJ JAIME D.O. CPT code 47381 Reason For Exam (CR Chest PA and LAT) wheezing Report CLINICAL INFORMATION: Wheezing. Frontal and lateral views of the chest were obtained. Comparison was made to the study dated 01/29/2020. No acute pulmonary disease is noted. The cardiovascular silhouette is within normal limits. There are no pleural effusions. IMPRESSION: No acute pulmonary disease. No significant change when compared to the previous study. Report Dictated on Final Dictating Physician: DO CARIAS ANTHONY Signed Date and Time: 07/30/2020 3:28 pm Signed by: DO CARIAS ANTHONY Transcribed Date and Time: 07/30/2020 3:29 Normal [facility] XR CHEST (2 VW)Ordered By: Robbie Jaime on 07-30-2020 Patient Name: FRED GRAY Diagnostic Radiology ACCESSION EXAM DATE/TIME PROCEDURE ORDERING PROVIDER [id number] 07/30/2020 15:12 EDT CR Chest PA & LAT MACIEJ JAIME D.O. CPT code 49134 Reason For Exam (CR Chest PA & LAT) wheezing Report CLINICAL INFORMATION: Wheezing. Frontal and lateral views of the chest were obtained. Comparison was made to the study dated 01/29/2020. No acute pulmonary disease is noted. The cardiovascular silhouette is within normal limits. There are no pleural effusions. IMPRESSION: No acute pulmonary disease. No significant change when compared to the previous study. Report Dictated on --- Final --- Dictating Physician: DO CARIAS ANTHONY Signed Date and Time: 07/30/2020 3:28 pm Signed by: DO CARIAS ANTHONY Transcribed Date and Time: 07/30/2020 3:29 [facility] Work Phone: [place], [facility] Incoming Radiology Results From [facility] - 07/30/2020 3:29 PM EDT Patient Name: FRED MELGOZA Diagnostic Radiology ACCESSION EXAM DATE/TIME PROCEDURE ORDERING PROVIDER [id number] 07/30/2020 15:12 EDT CR Chest PA & LAT MACIEJ JAIME D.O. CPT code 96896 Reason For Exam (CR Chest PA & LAT) wheezing Report CLINICAL INFORMATION: Wheezing. Frontal and lateral views of the chest were obtained. Comparison was made to the study dated 01/29/2020. No acute pulmonary disease is noted. The cardiovascular silhouette is within normal limits. There are no pleural effusions. IMPRESSION: No acute pulmonary disease. No significant change when compared to the previous study. Report Dictated on --- Final --- Dictating Physician: DO CARIAS ANTHONY Signed Date and Time: 07/30/2020 3:28 pm Signed by: DO CARIAS ANTHONY Transcribed Date and Time: 07/30/2020 3:29 [facility] Work Phone: [facility] Work Phone: Office Visit (Urgent Care)on 06-29-2020 Follow-up visit Diagnoses/Problems Assessed Burning with urination (788.1) (R30.0) Vaginal discharge (623.5) (N89.8) Abdominal pain (789.00) (R10.9) Orders Abdominal pain IO HCG, Urine Test; Status:Resulted - Requires Verification,Retrospectiv e By Protocol Authorization; Done: [id number] 12:44PM Performed:In Office; Due:27Sep2020; Last Updated By:Michelle Moraes; 06/29/2020 12:44:25 PM;Ordered; For:Abdominal pain; Ordered By:Ana Paula Shelton; Burning with urination IO UA (automated w/o microscopy); Status:Complete; Done: 59Veu0430 12:26PM Performed:In Office; Due:27Exg1479;Ordered; For:Burning with urination; Ordered By:Ana Paula Shelton; Vaginal discharge Start: Fluconazole 150 MG Oral Tablet; TAKE 1 TABLET ONCE. MAY REPEAT IN 2 DAYS. Rx By: Ana Paula Shelton; Dispense: 2 Days ; #:2 Tablet; Refill: 0;For: Vaginal discharge; NORMA = N; Verified Transmission to [facility]; Last Updated By: Vishal Mir; 06/29/2020 12:46:32 PM GC + Chlamydia By Amplified Detection; Status:Active; Requested for:29Jun2020; Perform:Lab Services - Lab To Draw (Non-Blood Test); Due:27Sep2020;Ordered; For:Vaginal discharge; Ordered By:Ana Paula Shelton; Trichomonas Vaginalis, Amplified; Status:Active; Requested for:29Jun2020; Perform:Lab Services - Lab To Draw (Non-Blood Test); Due:05Thp1631;Ordered; For:Vaginal discharge; Ordered By:Ana Paula Shelton; VAGINITIS GRAM STAIN FOR BACTERIAL VAGINOSIS + YEAST; Status:Hold For - Specimen/Data Collection; Requested for:29Jun2020; Perform:Lab Services - Lab To Draw (Non-Blood Test); Due:07Xcr1068;Ordered; For:Vaginal discharge; Ordered By:Ana Paula Shelton; Patient Discussion/Summary Vaginal Discharge; Dysuria BV, yeast, trichomonas, gonorrhea, and chlamydia swabbed. Will call with results. Start Fluconazole IO UA showed glucose. No ketones, leuks, protein or nitrates. Patient states that her blood sugar today was 217. IO urine hcg- negative Follow up with PCP in 2-4 days. If symptoms worsen, report to the emergency room. Red flag symptoms discussed, all questions answered. Patient verbalized understanding. Chief Complaint Possible UTI History of Present IllnessPatient complains of burning with urination, urinary frequency, odor, and occasional lower abdominal discomfort for the past month. She tried taking Azo 3 days ago, but symptoms persist. She also states that she was seen at another urgent care a couple of weeks ago, and was prescribed an antibiotic for UTI, but symptoms persist. LKMP- 06/06/20. Patient is a type II diabetic, and states that her sugars have been high recently. She does note clear/yellow vaginal discharge. Patient is sexually active. Denies fever, chills, cough, chest pain, shortness of breath, blood in urine, low back pain, nausea, vomiting, diarrhea, constipation. Review of Systems All other systems have been reviewed and are negative for complaint. Active Problems Problems Burning with urination (788.1) (R30.0) Allergies NonMedication Other Adverse Reaction; Anaphylaxis;; Recorded By: Michelle Moraes; 06/29/2020 12:25:03 PM Steroids Current Meds Medication NameInstruction metFORMIN HCl TABS TABS Vitals Vital Signs Recorded: 29Jun2020 12:22PM Rxiwxxxebxt08.6 F Heart Sedb894 Cpakrjae934 Pbvjqxvoj49 Height5 ft 6 in Wmwipp527 lb 6.4 oz BMI Vymnooypep66.48 BSA Calculated2.27 O2 Htcepujchb82 Physical Exam Constitutional: Well developed, well nourished. vital signs reviewed. patient alert patient without distress Cardiovascular: Heart rate normal, normal S1 and S2, no gallops, no murmurs and no pericardial rub. Pulmonary: No respiratory distress. Clear bilateral breath sounds. Abdomen: Palpation of abdomen: Abnormal. No organomegaly. Normal bowel sounds. Mild suprapubic tenderness noted with palpation. No rebound or guarding. No CVA tenderness noted with percussion bilaterally. Musculoskeletal: Gait and station: Normal. Skin: Normal skin () color and pigmentation, normal skin () turgor, and no rash. Psychiatric: Judgment and insight: Intact. Mood and affect: Normal. Results/Data IO HCG, Urine [id number] 12:44PMBuck, Ana Paula Test NameResultFlagReference IO Urine hCGNegative IO UA (automated w/o microscopy)29Jun2020 12:26PMAna Paula Shelton Test NameResultFlagReference IO ColorYellow IO AppearanceHazy IO Glucose - Ahplj580 mg/dl IO BilirubinNegative IO KetonesNegative IO Specific Gravity1.030 IO BloodNegative IO pH5.5 IO Protein, UrineNegative IO Urobilinogen Normal (0.2-1.0 mg/dl) IO Nitrite, UrineNegative IO LeukocytesNegative Signatures Electronically signed by : Ana Paula Shelton PA-C; Jun 29 2020 12:52PM EST (Author) Normal [facility] XR CHEST PORTABLEon 01-29-20 Patient Name: FRED MCKENZIE ---Diagnostic Radiology--- Exam Date/Time 01/29/2020 13:13:40 EST Exam CR Chest Portable Ordering Physician MD VALLEJO MARK D Accession Number [id number] CPT4 Codes 53563 () Reason For Exam sob, cough Report CHEST (Frontal View) History: Dyspnea, cough Comparison: 09/17/2019 Findings: Frontal chest view shows no lung infiltrate or congestion. The heart is normal in size. There is no mediastinal widening, pleural effusion or other significant change from last exam. IMPRESSION: No acute pulmonary process. Report Dictated on --- Final --- Dictated: 01/29/2020 1:21 pm Dictating Physician: MD DE LOS SANTOS AHMAD Signed Date and Time: 01/29/2020 1:21 pm Signed by: MD DE LOS SANTOS AHMAD Transcribed Date and Time: 01/29/2020 1:21 [facility] [place], [place] [facility] 1:23 PM EST Patient Name: FRED MCKENZIE ---Diagnostic Radiology--- Exam Date/Time 01/29/2020 13:13:40 EST Exam CR Chest Portable Ordering Physician MD VALLEJO MARK D Accession Number [id number] CPT4 Codes 56685 () Reason For Exam sob, cough Report CHEST (Frontal View) History: Dyspnea, cough Comparison: 09/17/2019 Findings: Frontal chest view shows no lung infiltrate or congestion. The heart is normal in size. There is no mediastinal widening, pleural effusion or other significant change from last exam. IMPRESSION: No acute pulmonary process. Report Dictated on --- Final --- Dictated: 01/29/2020 1:21 pm Dictating Physician: MD DE LOS SANTOS AHMAD Signed Date and Time: 01/29/2020 1:21 pm Signed by: MD DE LOS SANTOS AHMAD Transcribed Date and Time: 01/29/2020 1:21 [place], [place] Basic Metabolic Panelon 09-05 Anion gap [Moles/Vol] 10 mmol/L [place], [place] Calcium [Mass/Vol] 9.2 mg/dL 8.4 - 10. 4 mg/dL [place] Chloride [Moles/Vol] 107 mmol/L 98 - 10 7 mmol/L [place] CO2 [Moles/Vol] 22 mmol/L 22 - 30 mmol/L [place] Creatinine [Mass/Vol] 0.54 mg/dL 0.52 - 1.25 mg/dL [place] EGFR IF NonAfrican [place]an >90.0 >60 mL/min [place], [place] Comment on above: KDIGO guidelines pro vide the following GFR categories: Stage GFR(ml/min/1.73 m2) Terms G1 >=90 Normal or high G2 60-89 Mildly decreased* G3a 45-59 Mildly to moderately decreased G3b 30-44 Moderately to severely decreased G4 15-29 Severely decreased G5 <15 Kidney failure *Relative to young adult level. In the absence of evidence of kidney damage, neither GFR category G1 nor G2 fulfill the criteria for CKD. The CKD-EPI equation is validated in individuals 18 years of age and older. Currently the best equation for estimating glomerular filtration rate (GFR) from serum creatinine in children is the Bedside Mckeon equation. It is less accurate in patients with extremes of muscle mass, restriction of dietary protein, ingestion of creatine, extra-renal metabolism of creatinine, or treatment with medications that affect renal tubular creatinine secretion. GFR/1.73 sq M predicted among blacks MDRD (S/P/Bld) [Vol rate/Area] mL/min/{1.73_m2} >60 mL/min [place] Glucose [Mass/Vol] 104 mg/dL High 70 - 100 mg/dL [place] Interpretation and review of laboratory results Abnormal [place] Potassium [Moles/Vol] 4.0 mmol/L 3.5 - 5.1 mmol/L [place] Sodium [Moles/Vol] 140 mmol/L 135 - 145 mmol/L [place] Urea nitrogen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 blood pressure 77 mm[Hg] John Hardwick POWERHOUSE MECHANIC APPRENTICE - NEWS ASSISTANT Work Phone: [facility] 11-14-2024 14:44-0400 Heart rate 84 /min John Hardwick POWERHOUSE MECHANIC APPRENTICE - NEWS ASSISTANT Work Phone: [facility] 11-14-2024 14:44-0400 Systolic blood pressure 115 mm[Hg] John Hardwick POWERHOUSE MECHANIC APPRENTICE - NEWS ASSISTANT Work Phone: [facility] 07-26-2024 07:47-0400 Body height 167.[address] Keagan Shrestha MD Work Phone: [facility] 07-26-2024 07:47-0400 Body mass index (BMI) [Ratio] 44.4 kg/m2 Dr. Keagan Shrestha MD Work Phone: [facility] 07-26-2024 07:47-0400 Body temperature 97.6 [degF] Dr. Keagan Shrestha MD Work Phone: [facility] 07-26-2024 07:47-0400 Body weight 124.[address] Keagan Shrestha MD Work Phone: [facility] 07-26-2024 07:47-0400 Diastolic blood pressure 90 mm[Hg] Dr. Keagan Shrestha MD Work Phone: [facility] 07-26-2024 07:47-0400 Heart rate 94 /min Dr. Keagan Shrestha MD Work Phone: [facility] 07-26-2024 07:47-0400 Respiratory rate 16 /min Dr. Keagan Shrestha MD Work Phone: [facility] 07-26-2024 07:47-0400 SaO2% (BldA) [Mass fraction] 99 % Dr. Keagan Shrestha MD Work Phone: [facility] 07-26-2024 07:47-0400 Systolic blood pressure 134 mm[Hg] Dr. Keagan Shrestha MD Work Phone: [facility] 07-16-2024 13:32-0400 Diastolic blood pressure 66 mm[Hg] Mukund Fonseca MD Work Phone: [facility] 07-16-2024 13:32-0400 Heart rate 83 /min Mukund Fonseca MD Work Phone: [facility] 07-16-2024 13:32-0400 Respiratory rate 16 /min Mukund Fonseca MD Work Phone: [facility] 07-16-2024 13:32-0400 SaO2% (BldA) [Mass fraction] 98 % Mukund Fonseac MD Work Phone: [facility] 07-16-2024 13:32-0400 Systolic blood pressure 103 mm[Hg] Mukund Fonseca MD Work Phone: [facility] 07-16-2024 12:38-0400 Body height 167.6 cm Mukund Fonseca MD Work Phone: [facility] 07-16-2024 12:38-0400 Body mass index (BMI) [Ratio] 44.39 kg/m2 Mukund Fonseca MD Work Phone: [facility] 07-16-2024 12:38-0400 Body temperature 97.81 [degF] Mukund Fonseca MD Work Phone: [facility] 07-16-2024 12:38-0400 Body weight 124.74 kg Mukund Fonseca MD Work Phone: [facility] 07-11-2024 08:43-0400 Body mass index (BMI) [Ratio] 45.8 kg/m2 Dr. Keagan Shrestha MD Work Phone: [facility] 07-11-2024 08:43-0400 Body weight 128.[address] Keagan Shrestha MD Work Phone: [facility] 07-11-2024 08:43-0400 Diastolic blood pressure 79 mm[Hg] Dr. Keagan Shrestha MD Work Phone: [facility] 07-11-2024 08:43-0400 Systolic blood pressure 120 mm[Hg] Dr. Keagan Shrestha MD Work Phone: [facility] 06-09-2024 13:04-0400 Body height 167.6 cm John Hardwick POWERHOUSE MECHANIC APPRENTICE - NEWS ASSISTANT Work Phone: [facility] 06-09-2024 13:04-0400 Body mass index (BMI) [Ratio] 43.87 kg/m2 John Hardwick POWERHOUSE MECHANIC APPRENTICE - NEWS ASSISTANT Work Phone: [facility] 06-09-2024 13:04-0400 Body weight 123.29 kg John Alphonse POWERHOUSE MECHANIC APPRENTICE - NEWS ASSISTANT Work Phone: [facility] 06-09-2024 13:04-0400 Diastolic blood pressure 83 mm[Hg] John Hardwick POWERHOUSE MECHANIC APPRENTICE - NEWS ASSISTANT Work Phone: [facility] 06-09-2024 13:04-0400 Heart rate 68 /min John Hardwick POWERHOUSE MECHANIC APPRENTICE - NEWS ASSISTANT Work Phone: [facility] 06-09-2024 13:04-0400 Systolic blood pressure 125 mm[Hg] John Hardwick POWERHOUSE MECHANIC APPRENTICE - NEWS ASSISTANT Work Phone: [facility] 05-30-2024 11:35-0400 Body mass index (BMI) [Ratio] 43.9 kg/m2 Dr. Keagan Shrestha MD Work Phone: [facility] 05-30-2024 11:35-0400 Body weight 123.[address] Keagan Shrestha MD Work Phone: [facility] 05-30-2024 11:35-0400 Diastolic blood pressure 85 mm[Hg] Dr. Keagan Shrestha MD Work Phone: [facility] 05-30-2024 11:35-0400 Systolic blood pressure 126 mm[Hg] Dr. Keagan Shrestha MD Work Phone: [facility] 05-03-2024 10:35-0500 Body height 167.[address] Keagan Shrestha MD Work Phone: [facility] 05-03-2024 10:29-0500 Body mass index (BMI) [Ratio] 45.5 kg/m2 Dr. Keagan Shrestha MD Work Phone: [facility] 05-03-2024 10:29-0500 Body weight 127.[address] Keagan Shrestha MD Work Phone: [facility] 05-03-2024 10:29-0500 Diastolic blood pressure 80 mm[Hg] Dr. Keagan Shrestha MD Work Phone: [facility] 05-03-2024 10:29-0500 Systolic blood pressure 126 mm[Hg] Dr. Keagan Shrestha MD Work Phone: [facility] 04-26-2024 09:10-0500 Body mass index (BMI) [Ratio] 45.3 kg/m2 Dr. Keagan Shrestha MD Work Phone: [facility] 04-26-2024 09:10-0500 Body weight 127.[address] Keagan Shrestha MD Work Phone: [facility] 04-26-2024 09:10-0500 Diastolic blood pressure 77 mm[Hg] Dr. Keagan Shrestha MD Work Phone: [facility] 04-26-2024 09:10-0500 Heart rate 88 /min Dr. Keagan Shrestha MD Work Phone: [facility] 04-26-2024 09:10-0500 Respiratory rate 17 /min Dr. Keagan Shrestha MD Work Phone: [facility] 04-26-2024 09:10-0500 SaO2% (BldA) [Mass fraction] 97 % Dr. Keagan Shrestha MD Work Phone: [facility] 04-26-2024 09:10-0500 Systolic blood pressure 126 mm[Hg] Dr. Keagan Shrestha MD Work Phone: [facility] 04-04-2024 06:57-0500 Body height 167.6 cm Myesha Dunbar POWERHOUSE MECHANIC APPRENTICE - RETOUCHER PHOTOENGRAVING Work Phone: [facility] 04-04-2024 06:57-0500 Body mass index (BMI) [Ratio] 43.93 kg/m2 Myesha Dunbar POWERHOUSE MECHANIC APPRENTICE - RETOUCHER PHOTOENGRAVING Work Phone: [facility] 04-04-2024 06:57-0500 Body weight 123.47 kg Myesha Dunbar POWERHOUSE MECHANIC APPRENTICE - RETOUCHER [employer]ENGRAVING Work Phone: [facility] 04-04-2024 06:57-0500 Diastolic blood pressure 79 mm[Hg] Myesha Dunbar POWERHOUSE MECHANIC APPRENTICE - RETOUCHER PH[employer]ENGRAVING Work Phone: [facility] 04-04-2024 06:57-0500 Heart rate 88 /min Myesha Dunbar POWERHOUSE MECHANIC APPRENTICE - RETOUCHER PHOTOENGRAVING Work Phone: [facility] 04-04-2024 06:57-0500 Systolic blood pressure 119 mm[Hg] Myesha Dunbar POWERHOUSE MECHANIC APPRENTICE - RETOUCHER PH[employer]ENGRAVING Work Phone: [facility] 03-31-2024 14:00-0500 Body temperature 98.7 [degF] Dr. Keagan Shrestha MD Work Phone: [facility] 03-31-2024 14:00-0500 Diastolic blood pressure 92 mm[Hg] Dr. Keagan Shrestha MD Work Phone: [facility] 03-31-2024 14:00-0500 Heart rate 105 /min Dr. Keagan Shrestha MD Work Phone: [facility] 03-31-2024 14:00-0500 Respiratory rate 16 /min Dr. Keagan Shrestha MD Work Phone: [facility] 03-31-2024 14:00-0500 SaO2% (BldA) [Mass fraction] 99 % Dr. Keagan Shrestha MD Work Phone: [facility] 03-31-2024 14:00-0500 Systolic blood pressure 130 mm[Hg] Dr. Keagan Shrestha MD Work Phone: [facility] 03-27-2024 14:30-0500 Body mass index (BMI) [Ratio] 48.2 kg/m2 Dr. Keagan Shrestha MD Work Phone: [facility] 03-27-2024 14:30-0500 Body weight 135.[address] Keagan Shrestha MD Work Phone: [facility] 03-19-2024 14:37-0500 Body mass index (BMI) [Ratio] 47.5 kg/m2 Dr. Keagan Shrestha MD Work Phone: [facility] 03-19-2024 14:37-0500 Body weight 133.[address] Keagan Shrestha MD Work Phone: [facility] 03-19-2024 14:16-0500 Diastolic blood pressure 64 mm[Hg] Dr. Keagan Shrestha MD Work Phone: [facility] 03-19-2024 14:16-0500 Heart rate 81 /min Dr. Keagan Shrestha MD Work Phone: [facility] 03-19-2024 14:16-0500 Systolic blood pressure 124 mm[Hg] Dr. Keagan Shrestha MD Work Phone: [facility] 03-17-2024 00:17-0500 Diastolic blood pressure 72 mm[Hg] Dr. Keagan Shrestha MD Work Phone: [facility] 03-17-2024 00:17-0500 Heart rate 77 /min Dr. Keagan Shrestha MD Work Phone: [facility] 03-17-2024 00:17-0500 Systolic blood pressure 126 mm[Hg] Dr. Keagan Shrestha MD Work Phone: [facility] 03-16-2024 23:22-0500 Body mass index (BMI) [Ratio] 47.3 kg/m2 Dr. Keagan Shrestha MD Work Phone: [facility] 03-16-2024 23:22-0500 Body weight [address] Keagan Shrestha MD Work Phone: [facility] 03-16-2024 23:12-0500 Body temperature 98.3 [degF] Dr. Keagan Shrestha MD Work Phone: [facility] 03-16-2024 23:12-0500 Respiratory rate 16 /min Dr. Keagan Shrestha MD Work Phone: [facility] 03-16-2024 23:11-0500 SaO2% (BldA) [Mass fraction] 98 % Dr. Keagan Shrestha MD Work Phone: [facility] 03-16-2024 16:32-0500 Diastolic blood pressure 78 mm[Hg] Dr. Keagan Shrestha MD Work Phone: [facility] 03-16-2024 16:32-0500 Heart rate 96 /min Dr. Keagan Shrestha MD Work Phone: [facility] 03-16-2024 16:32-0500 SaO2% (BldA) [Mass fraction] 98 % Dr. Keagan Shrestha MD Work Phone: [facility] 03-16-2024 16:32-0500 Systolic blood pressure 132 mm[Hg] Dr. Keagan Shrestha MD Work Phone: [facility] 03-16-2024 15:13-0500 Body mass index (BMI) [Ratio] 47.2 kg/m2 Dr. Keagan Shrestha MD Work Phone: [facility] 03-16-2024 15:13-0500 Body weight 132.[address] Keagan Shrestha MD Work Phone: [facility] 03-16-2024 15:05-0500 Body temperature 98.1 [degF] Dr. Keagan Shrestha MD Work Phone: [facility] 03-16-2024 15:05-0500 Respiratory rate 18 /min Dr. Keagan Shrestha MD Work Phone: [facility] 03-15-2024 15:15-0500 Body mass index (BMI) [Ratio] 47.9 kg/m2 Dr. Keagan Shrestha MD Work Phone: [facility] 03-15-2024 15:15-0500 Body weight 134.[address] Keagan Shrestha MD Work Phone: [facility] 03-15-2024 15:15-0500 Diastolic blood pressure 88 mm[Hg] Dr. Keagan Shrestha MD Work Phone: [facility] 03-15-2024 15:15-0500 Systolic blood pressure 130 mm[Hg] Dr. Keagan Shrestha MD Work Phone: [facility] 03-11-2024 18:11-0500 Diastolic blood pressure 78 mm[Hg] Dr. Keagan Shrestha MD Work Phone: [facility] 03-11-2024 18:11-0500 Heart rate 100 /min Dr. Keagan Shrestha MD Work Phone: [facility] 03-11-2024 18:11-0500 Systolic blood pressure 131 mm[Hg] Dr. Keagan Shrestha MD Work Phone: [facility] 03-11-2024 15:18-0500 SaO2% (BldA) [Mass fraction] 98 % Dr. Keagan Shrestha MD Work Phone: [facility] 03-11-2024 14:53-0500 Body mass index (BMI) [Ratio] 46.1 kg/m2 Dr. Keagan Shrestha MD Work Phone: [facility] 03-11-2024 14:53-0500 Body weight 129.[address] Keagan Shrestha MD Work Phone: [facility] 03-11-2024 14:47-0500 Body temperature 97.4 [degF] Dr. Keagan Shrestha MD Work Phone: [facility] 03-11-2024 14:47-0500 Respiratory rate 18 /min Dr. Keagan Shrestha MD Work Phone: [facility] 03-09-2024 15:53-0500 Body temperature 98.4 [degF] Dr. Keagan Shrestha MD Work Phone: [facility] 03-09-2024 15:53-0500 Diastolic blood pressure 82 mm[Hg] Dr. Keagan Shrestha MD Work Phone: [facility] 03-09-2024 15:53-0500 Heart rate 100 /min Dr. Keagan Shrestha MD Work Phone: [facility] 03-09-2024 15:53-0500 Respiratory rate 18 /min Dr. Keagan Shrestha MD Work Phone: [facility] 03-09-2024 15:53-0500 Systolic blood pressure 133 mm[Hg] Dr. Keagan Shrestha MD Work Phone: [facility] 03-09-2024 15:10-0500 Body mass index (BMI) [Ratio] 45.5 kg/m2 Dr. Keagan Shrestha MD Work Phone: [facility] 03-09-2024 15:10-0500 Body weight [address] Keagan Shrestha MD Work Phone: [facility] 03-06-2024 21:05-0500 Heart rate 83 /min Maria Victoria Tamirisa DO Work Phone: [facility] 03-06-2024 18:40-0500 Body temperature 97.5 [degF] Maria Victoria Tamirisa DO Work Phone: [facility] 03-06-2024 18:40-0500 Diastolic blood pressure 81 mm[Hg] Maria Victoria Tamirisa DO Work Phone: [facility] 03-06-2024 18:40-0500 Respiratory rate 18 /min Maria Victoria Tamirisa DO Work Phone: [facility] 03-06-2024 18:40-0500 SaO2% (BldA) [Mass fraction] 98 % Maria Victoria Christirisa DO Work Phone: [facility] 03-06-2024 18:40-0500 Systolic blood pressure 129 mm[Hg] Maria Victoria Tamirisa DO Work Phone: [facility] 03-02-2024 22:09-0500 Body temperature 97.5 [degF] Dr. Keagan Shrestha MD Work Phone: [facility] 03-02-2024 22:09-0500 Diastolic blood pressure 74 mm[Hg] Dr. Keagan Shrestha MD Work Phone: [facility] 03-02-2024 22:09-0500 Heart rate 78 /min Dr. Keagan Shrestha MD Work Phone: [facility] 03-02-2024 22:09-0500 Respiratory rate 18 /min Dr. Keagan Shrestha MD Work Phone: [facility] 03-02-2024 22:09-0500 SaO2% (BldA) [Mass fraction] 97 % Dr. Keagan Shrestha MD Work Phone: [facility] 03-02-2024 22:09-0500 Systolic blood pressure 128 mm[Hg] Dr. Keagan Shrestha MD Work Phone: [facility] 03-02-2024 20:45-0500 Body mass index (BMI) [Ratio] 45.5 kg/m2 Dr. Keagan Shrestha MD Work Phone: [facility] 03-02-2024 20:45-0500 Body weight 127.[address] Keagan Shrestha MD Work Phone: [facility] 02-28-2024 14:25-0500 Body mass index (BMI) [Ratio] 45.6 kg/m2 Dr. Keagan Shrestha MD Work Phone: [facility] 02-28-2024 14:25-0500 Body weight 128.[address] Keagan Shrestha MD Work Phone: [facility] 02-28-2024 14:25-0500 Diastolic blood pressure 83 mm[Hg] Dr. Keagan Shrestha MD Work Phone: [facility] 02-28-2024 14:25-0500 Systolic blood pressure 130 mm[Hg] Dr. Keagan Shrestha MD Work Phone: [facility] 02-24-2024 02:47-0500 Body temperature 97.4 [degF] Dr. Keagan Shrestha MD Work Phone: [facility] 02-24-2024 02:47-0500 Diastolic blood pressure 80 mm[Hg] Dr. Keagan Shrestha MD Work Phone: [facility] 02-24-2024 02:47-0500 Heart rate 95 /min Dr. Keagan Shrestha MD Work Phone: [facility] 02-24-2024 02:47-0500 Respiratory rate 16 /min Dr. Keagan Shrestha MD Work Phone: [facility] 02-24-2024 02:47-0500 Systolic blood pressure 121 mm[Hg] Dr. Keagan Shrestha MD Work Phone: [facility] 02-23-2024 11:06-0500 Body mass index (BMI) [Ratio] 44.6 kg/m2 Dr. Keagan Shrestha MD Work Phone: [facility] 02-23-2024 11:06-0500 Body temperature 97.4 [degF] Dr. Keagan Shrestha MD Work Phone: [facility] 02-23-2024 11:06-0500 Body weight 125.[address] Keagan Shrestha MD Work Phone: [facility] 02-23-2024 11:06-0500 Diastolic blood pressure 82 mm[Hg] Dr. Keagan Shrestha MD Work Phone: [facility] 02-23-2024 11:06-0500 Heart rate 92 /min Dr. Keagan Shrestha MD Work Phone: [facility] 02-23-2024 11:06-0500 Respiratory rate 20 /min Dr. Keagan Shrestha MD Work Phone: [facility] 02-23-2024 11:06-0500 SaO2% (BldA) [Mass fraction] 98 % Dr. Keagan Shrestha MD Work Phone: [facility] 02-23-2024 11:06-0500 Systolic blood pressure 128 mm[Hg] Dr. Keagan Shrestha MD Work Phone: [facility] 02-22-2024 03:54-0500 Body temperature 97.5 [degF] Dr. Keagan Shrestha MD Work Phone: [facility] 02-22-2024 03:54-0500 Diastolic blood pressure 96 mm[Hg] Dr. Keagan Shrestha MD Work Phone: [facility] 02-22-2024 03:54-0500 Heart rate 100 /min Dr. Keagan Shrestha MD Work Phone: [facility] 02-22-2024 03:54-0500 Respiratory rate 18 /min Dr. Keagan Shrestha MD Work Phone: [facility] 02-22-2024 03:54-0500 SaO2% (BldA) [Mass fraction] 97 % Dr. Keagan Shrestha MD Work Phone: [facility] 02-22-2024 03:54-0500 Systolic blood pressure 140 mm[Hg] Dr. Keagan Shrestha MD Work Phone: [facility] 02-22-2024 00:19-0500 Body mass index (BMI) [Ratio] 44.7 kg/m2 Dr. Keagan Shrestha MD Work Phone: [facility] 02-22-2024 00:19-0500 Body weight 125.[address] Keagan Shrestha MD Work Phone: [facility] 02-16-2024 13:44-0500 Body mass index (BMI) [Ratio] 44.5 kg/m2 Dr. Keagan Shrestha MD Work Phone: [facility] 02-16-2024 13:44-0500 Body weight 125.[address] Keagan Shrestha MD Work Phone: [facility] 02-16-2024 13:44-0500 Diastolic blood pressure 82 mm[Hg] Dr. Keagan Shrestha MD Work Phone: [facility] 02-16-2024 13:44-0500 Systolic blood pressure 118 mm[Hg] Dr. Keagan Shrestha MD Work Phone: [facility] 02-02-2024 14:19-0500 Body mass index (BMI) [Ratio] 43 kg/m2 Dr. Keagan Shrestha MD Work Phone: [facility] 02-02-2024 14:19-0500 Body weight 120.[address] Keagan Shrestha MD Work Phone: [facility] 02-02-2024 14:19-0500 Diastolic blood pressure 80 mm[Hg] Dr. Keagan Shrestha MD Work Phone: [facility] 02-02-2024 14:19-0500 Systolic blood pressure 118 mm[Hg] Dr. Keagan Shrestha MD Work Phone: [facility] 01-29-2024 18:22-0500 Body temperature 98 [degF] Dr. Keagan Shrestha MD Work Phone: [facility] 01-29-2024 18:22-0500 Diastolic blood pressure 66 mm[Hg] Dr. Keagan Shrestha MD Work Phone: [facility] 01-29-2024 18:22-0500 Heart rate 110 /min Dr. Keagan Shrestha MD Work Phone: [facility] 01-29-2024 18:22-0500 Respiratory rate 18 /min Dr. Keagan Shrestha MD Work Phone: [facility] 01-29-2024 18:22-0500 SaO2% (BldA) [Mass fraction] 97 % Dr. Keagan Shrestha MD Work Phone: [facility] 01-29-2024 18:22-0500 Systolic blood pressure 108 mm[Hg] Dr. Keagan Shrestha MD Work Phone: [facility] 01-29-2024 15:43-0500 Body mass index (BMI) [Ratio] 42.9 kg/m2 Dr. Keagan Shrestha MD Work Phone: [facility] 01-29-2024 15:43-0500 Body weight 120.[address] Keagan Shrestha MD Work Phone: [facility] 01-12-2024 10:06-0500 Body mass index (BMI) [Ratio] 44.16 kg/m2 Arnaldo Bowie APRN.CNP Work Phone: [facility] 01-12-2024 10:06-0500 Body temperature 97.7 [degF] Arnaldo Bowie POWERHOUSE MECHANIC APPRENTICE.RETOUCHER PHOTOENGRAVING Work Phone: [facility] 01-12-2024 10:06-0500 Body weight 124.1 kg Arnaldo Bowie POWERHOUSE MECHANIC APPRENTICE.RETOU[employer]ER [employer]OTOENGRAVING Work Phone: [facility] 01-12-2024 10:06-0500 Diastolic blood pressure 74 mm[Hg] Arnaldo King POWERHOUSE MECHANIC APPRENTICE.RETOUCHER PHOTOENGRAVING Work Phone: [facility] 01-12-2024 10:06-0500 Heart rate 114 /min Arnaldo Bowie POWERHOUSE MECHANIC APPRENTICE.RETOUCHER PHOTOENGRAVING Work Phone: [facility] 01-12-2024 10:06-0500 Respiratory rate 18 /min Arnaldo Bowie POWERHOUSE MECHANIC APPRENTICE.RETOUCHER PHOTOENGRAVING Work Phone: [facility] 01-12-2024 10:06-0500 SaO2% (BldA) [Mass fraction] 98 % Arnaldo Bowie POWERHOUSE MECHANIC APPRENTICE.RETOUCHER PHOTOENGRAVING Work Phone: [facility] 01-12-2024 10:06-0500 Systolic blood pressure 118 mm[Hg] Arnaldo Bowie POWERHOUSE MECHANIC APPRENTICE.RETOUCHER PHOTOENGRAVING Work Phone: [facility] 12-02-2023 10:45-0400 Body height 167.6 cm John Hardwick POWERHOUSE MECHANIC APPRENTICE - NEWS ASSISTANT Work Phone: [facility] 12-02-2023 10:45-0400 Body mass index (BMI) [Ratio] 42.93 kg/m2 John Hardwick POWERHOUSE MECHANIC APPRENTICE - NEWS ASSISTANT Work Phone: [employer] 12-02-2023 10:45-0400 Body weight 120.66 kg John Hardwick POWERHOUSE MECHANIC APPRENTICE - NEWS ASSISTANT Work Phone: [facility] 12-02-2023 10:45-0400 Diastolic blood pressure 53 mm[Hg] John Hardwick POWERHOUSE MECHANIC APPRENTICE - NEWS ASSISTANT Work Phone: [facility] 12-02-2023 10:45-0400 Heart rate 89 /min John Hardwick POWERHOUSE MECHANIC APPRENTICE - NEWS ASSISTANT Work Phone: [facility] 12-02-2023 10:45-0400 Systolic blood pressure 111 mm[Hg] John Alphonse POWERHOUSE MECHANIC APPRENTICE - NEWS ASSISTANT Work Phone: [facility] 09-19-2023 14:00-0400 Body mass index (BMI) [Ratio] 41.28 kg/m2 Krislyn Aberegg PA Work Phone: [facility] 09-19-2023 14:00-0400 Body temperature 97.5 [degF] Krislyn Aberegg PA Work Phone: [facility] 09-19-2023 14:00-0400 Body weight 116 kg Krislyn Aberegg PA Work Phone: [facility] 09-19-2023 14:00-0400 Diastolic blood pressure 70 mm[Hg] Krislyn Aberegg PA Work Phone: [facility] 09-19-2023 14:00-0400 Heart rate 86 /min Krislyn Aberegg PA Work Phone: [facility] 09-19-2023 14:00-0400 Respiratory rate 16 /min Krislyn Aberegg PA Work Phone: [facility] 09-19-2023 14:00-0400 SaO2% (BldA) [Mass fraction] 97 % Krislyn Aberegg PA Work Phone: [facility] 09-19-2023 14:00-0400 Systolic blood pressure 128 mm[Hg] Krislyn Aberegg PA Work Phone: [facility] 08-16-2023 17:39-0400 Body mass index (BMI) [Ratio] 41.28 kg/m2 Tiki Jefferson POWERHOUSE MECHANIC APPRENTICE.RETOUCHER PHOTOENGRAVING Work Phone: [facility] 08-16-2023 17:39-0400 Body temperature 98.29 [degF] Tiki Jefferson POWERHOUSE MECHANIC APPRENTICE.RETOUCHER PHOTOENGRAVING Work Phone: [facility] 08-16-2023 17:39-0400 Body weight 116 kg Tiki Jefferson POWERHOUSE MECHANIC APPRENTICE.RETOUCHER PHOTOENGRAVING Work Phone: [facility] 08-16-2023 17:39-0400 Diastolic blood pressure 80 mm[Hg] Tiki Jefferson POWERHOUSE MECHANIC APPRENTICE.RETOUCHER PHOTOENGRAVING Work Phone: [facility] 08-16-2023 17:39-0400 Heart rate 91 /min Tiki Jefferson POWERHOUSE MECHANIC APPRENTICE.RETOUCHER PHOTOENGRAVING Work Phone: [facility] 08-16-2023 17:39-0400 Respiratory rate 18 /min Tiki Jefferson POWERHOUSE MECHANIC APPRENTICE.RETOUCHER PHOTOENGRAVING Work Phone: [facility] 08-16-2023 17:39-0400 SaO2% (BldA) [Mass fraction] 97 % Tiki Jefferson POWERHOUSE MECHANIC APPRENTICE.RETOUCHER PHOTOENGRAVING Work Phone: [facility] 08-16-2023 17:39-0400 Systolic blood pressure 118 mm[Hg] Tiki Jefferson POWERHOUSE MECHANIC APPRENTICE.RETOUCHER PHOTOENGRAVING Work Phone: [facility] 06-26-2023 20:54-0400 Body temperature 98.7 [degF] No Primary Care Physician [facility] 06-26-2023 20:54-0400 Diastolic blood pressure 92 mm[Hg] No Primary Care Physician [facility] 06-26-2023 20:54-0400 Heart rate 82 /min No Primary Care Physician [facility] 06-26-2023 20:54-0400 Respiratory rate 16 /min No Primary Care Physician [facility] 06-26-2023 20:54-0400 SaO2% (BldA) [Mass fraction] 100 % No Primary Care Physician [facility] 06-26-2023 20:54-0400 Systolic blood pressure 128 mm[Hg] No Primary Care Physician [facility] 06-26-2023 18:37-0400 Body height 167.64 cm No Primary Care Physician [facility] 06-26-2023 18:37-0400 Body mass index (BMI) [Ratio] 24.8 kg/m2 No Primary Care Physician [facility] 06-26-2023 18:37-0400 Body weight 69.89 kg No Primary Care Physician [facility] 06-21-2023 08:51-0400 Body temperature 98.2 [degF] No Primary Care Physician [facility] 06-21-2023 08:51-0400 Diastolic blood pressure 77 mm[Hg] No Primary Care Physician [facility] 06-21-2023 08:51-0400 Heart rate 108 /min No Primary Care Physician [facility] 06-21-2023 08:51-0400 Respiratory rate 20 /min No Primary Care Physician [facility] 06-21-2023 08:51-0400 SaO2% (BldA) [Mass fraction] 94 % No Primary Care Physician [facility] 06-21-2023 08:51-0400 Systolic blood pressure 121 mm[Hg] No Primary Care Physician [facility] 06-21-2023 08:40-0400 Inhaled oxygen flow rate 8 L/min No Primary Care Physician [facility] 06-21-2023 06:42-0400 Body height 167.64 cm No Primary Care Physician [facility] 06-21-2023 06:42-0400 Body mass index (BMI) [Ratio] 39.9 kg/m2 No Primary Care Physician [facility] 06-21-2023 06:42-0400 Body weight 112.03 kg No Primary Care Physician [facility] 06-17-2023 13:36-0400 Body mass index (BMI) [Ratio] 39.9 kg/m2 No Primary Care Physician [facility] 06-17-2023 13:36-0400 Body temperature 97.8 [degF] No Primary Care Physician [facility] 06-17-2023 13:36-0400 Body weight 112.03 kg No Primary Care Physician [facility] 06-17-2023 13:36-0400 Diastolic blood pressure 76 mm[Hg] No Primary Care Physician [facility] 06-17-2023 13:36-0400 Heart rate 87 /min No Primary Care Physician [facility] 06-17-2023 13:36-0400 Respiratory rate 16 /min No Primary Care Physician [facility] 06-17-2023 13:36-0400 SaO2% (BldA) [Mass fraction] 99 % No Primary Care Physician [facility] 06-17-2023 13:36-0400 Systolic blood pressure 128 mm[Hg] No Primary Care Physician [facility] 06-10-2023 13:06-0400 Body mass index (BMI) [Ratio] 39.4 kg/m2 No Primary Care Physician [facility] 06-10-2023 13:06-0400 Body weight 110.67 kg No Primary Care Physician [facility] 06-10-2023 13:06-0400 Diastolic blood pressure 78 mm[Hg] No Primary Care Physician [facility] 06-10-2023 13:06-0400 Respiratory rate 16 /min No Primary Care Physician [facility] 06-10-2023 13:06-0400 Systolic blood pressure 114 mm[Hg] No Primary Care Physician [facility] 05-31-2023 13:56-0400 Body mass index (BMI) [Ratio] 39 kg/m2 No Primary Care Physician [facility] 05-31-2023 13:56-0400 Body temperature 99.2 [degF] No Primary Care Physician [facility] 05-31-2023 13:56-0400 Body weight 109.76 kg No Primary Care Physician [facility] 05-31-2023 13:56-0400 Diastolic blood pressure 68 mm[Hg] No Primary Care Physician [facility] 05-31-2023 13:56-0400 Heart rate 89 /min No Primary Care Physician [facility] 05-31-2023 13:56-0400 Respiratory rate 18 /min No Primary Care Physician [facility] 05-31-2023 13:56-0400 SaO2% (BldA) [Mass fraction] 98 % No Primary Care Physician [facility] 05-31-2023 13:56-0400 Systolic blood pressure 108 mm[Hg] No Primary Care Physician [facility] 05-16-2023 18:55-0400 Body height 167.64 cm No Primary Care Physician [facility] 05-16-2023 18:55-0400 Body mass index (BMI) [Ratio] 39.4 kg/m2 No Primary Care Physician [facility] 05-16-2023 18:55-0400 Body temperature 97.5 [degF] No Primary Care Physician [facility] 05-16-2023 18:55-0400 Body weight 110.72 kg No Primary Care Physician [facility] 05-16-2023 18:55-0400 Diastolic blood pressure 85 mm[Hg] No Primary Care Physician [facility] 05-16-2023 18:55-0400 Heart rate 93 /min No Primary Care Physician [facility] 05-16-2023 18:55-0400 Respiratory rate 18 /min No Primary Care Physician [facility] 05-16-2023 18:55-0400 SaO2% (BldA) [Mass fraction] 98 % No Primary Care Physician [facility] 05-16-2023 18:55-0400 Systolic blood pressure 121 mm[Hg] No Primary Care Physician [facility] 04-26-2023 15:00-0500 Body height 167.6 cm Fifi Morales MD Work Phone: [facility] 04-26-2023 15:00-0500 Body mass index (BMI) [Ratio] 39.12 kg/m2 Fifi Morales MD Work Phone: [facility] 04-26-2023 15:00-0500 Body weight 109.95 kg Fifi Morales MD Work Phone: [facility] 04-26-2023 15:00-0500 Diastolic blood pressure 79 mm[Hg] Fifi Morales MD Work Phone: [facility] 04-26-2023 15:00-0500 Heart rate 91 /min Fifi Morales MD Work Phone: [facility] 04-26-2023 15:00-0500 SaO2% (BldA) [Mass fraction] 96 % Fifi Morales MD Work Phone: [facility] 04-26-2023 15:00-0500 Systolic blood pressure 117 mm[Hg] Fifi Morales MD Work Phone: [facility] 02-26-2023 13:27-0500 Body height 167.6 cm Fifi Morales MD Work Phone: [facility] 02-26-2023 13:27-0500 Body mass index (BMI) [Ratio] 38.58 kg/m2 Fifi Morales MD Work Phone: [facility] 02-26-2023 13:27-0500 Body temperature 97.5 [degF] Fifi Morales MD Work Phone: [facility] 02-26-2023 13:27-0500 Body weight 108.41 kg Fifi Morales MD Work Phone: [facility] 02-26-2023 13:27-0500 Diastolic blood pressure 78 mm[Hg] Fifi Morales MD Work Phone: [facility] 02-26-2023 13:27-0500 Heart rate 91 /min Fifi Morales MD Work Phone: [facility] 02-26-2023 13:27-0500 SaO2% (BldA) [Mass fraction] 98 % Fifi Morales MD Work Phone: [facility] 02-26-2023 13:27-0500 Systolic blood pressure 115 mm[Hg] Fifi Morales MD Work Phone: [facility] 12-26-2022 00:12-0400 Respiratory rate 16 /min Dr. Rafael Bear Work Phone: [facility] 12-25-2022 22:12-0400 Body height 167.[address] Rafael Bear Work Phone: [facility] 12-25-2022 22:12-0400 Body mass index (BMI) [Ratio] 39.1 kg/m2 Dr. Rafael Bear Work Phone: [facility] 12-25-2022 22:12-0400 Body temperature 97.8 [degF] Dr. Rafael Bear Work Phone: [facility] 12-25-2022 22:12-0400 Body weight 109.[address] Rafael Bear Work Phone: [facility] 12-25-2022 22:12-0400 Diastolic blood pressure 97 mm[Hg] Dr. Rafael Bear Work Phone: [facility] 12-25-2022 22:12-0400 Heart rate 110 /min Dr. Rafael Bear Work Phone: [facility] 12-25-2022 22:12-0400 SaO2% (BldA) [Mass fraction] 99 % Dr. Rafael Bear Work Phone: [facility] 12-25-2022 22:12-0400 Systolic blood pressure 132 mm[Hg] Dr. Rafael Bear Work Phone: [facility] 12-23-2022 18:07-0400 Body temperature 98.49 [degF] Tia Harding APRN.[employer] Work Phone: [facility] 12-23-2022 18:07-0400 Body weight 112.13 kg Tia Harding APRN.[employer] Work Phone: [facility] 12-23-2022 18:07-0400 Diastolic blood pressure 78 mm[Hg] Tia Harding APRN.[employer] Work Phone: [facility] 12-23-2022 18:07-0400 Heart rate 101 /min Tia Harding APRN.[employer] Work Phone: [facility] 12-23-2022 18:07-0400 Respiratory rate 18 /min Tia Harding APRN.[employer] Work Phone: [facility] 12-23-2022 18:07-0400 SaO2% (BldA) [Mass fraction] 99 % Tia Harding APRN.[employer] Work Phone: [facility] 12-23-2022 18:07-0400 Systolic blood pressure 122 mm[Hg] Tia Harding APRN.[employer] Work Phone: [facility] 12-17-2022 14:15-0400 Body mass index (BMI) [Ratio] 41.4 kg/m2 Dr. Rafael Bear Work Phone: [facility] 12-17-2022 14:15-0400 Body temperature 97.7 [degF] Dr. Rafael Bear Work Phone: [facility] 12-17-2022 14:15-0400 Body weight 116.[address] Rafael Bear Work Phone: [facility] 12-17-2022 14:15-0400 Diastolic blood pressure 84 mm[Hg] Dr. Rafael Bear Work Phone: [facility] 12-17-2022 14:15-0400 Heart rate 87 /min Dr. Rafael Bear Work Phone: [facility] 12-17-2022 14:15-0400 Respiratory rate 18 /min Dr. Rafael Bear Work Phone: [facility] 12-17-2022 14:15-0400 SaO2% (BldA) [Mass fraction] 96 % Dr. Rafael Bear Work Phone: [facility] 12-17-2022 14:15-0400 Systolic blood pressure 119 mm[Hg] Dr. Rafael Bear Work Phone: [facility] 12-03-2022 21:52-0400 Body height 167.64 cm [facility] 12-03-2022 21:52-0400 Body mass index (BMI) [Ratio] 40.8 kg/m2 [facility] 12-03-2022 21:52-0400 Body temperature 98.4 [degF] [facility] 12-03-2022 21:52-0400 Body weight 114.75 kg [facility] 12-03-2022 21:52-0400 Diastolic blood pressure 98 mm[Hg] [facility] 12-03-2022 21:52-0400 Heart rate 97 /min [facility] 12-03-2022 21:52-0400 Respiratory rate 18 /min [facility] 12-03-2022 21:52-0400 SaO2% (BldA) [Mass fraction] 97 % [facility] 12-03-2022 21:52-0400 Systolic blood pressure 149 mm[Hg] [facility] 12-03-2022 14:06-0400 Body temperature 98.6 [degF] [facility] POWERHOUSE MECHANIC APPRENTICE.[employer] Work Phone: [facility] 12-03-2022 14:06-0400 Body weight 114.31 kg [facility] POWERHOUSE MECHANIC APPRENTICE.[employer] Work Phone: [facility] 12-03-2022 14:06-0400 Diastolic blood pressure 78 mm[Hg] [facility] POWERHOUSE MECHANIC APPRENTICE.[employer] Work Phone: [facility] 12-03-2022 14:06-0400 Heart rate 92 /min [facility] POWERHOUSE MECHANIC APPRENTICE.[employer] Work Phone: [facility] 12-03-2022 14:06-0400 Respiratory rate 18 /min [facility] POWERHOUSE MECHANIC APPRENTICE.[employer] Work Phone: [facility] 12-03-2022 14:06-0400 SaO2% (BldA) [Mass fraction] 96 % [facility] POWERHOUSE MECHANIC APPRENTICE.[employer] Work Phone: [facility] 12-03-2022 14:06-0400 Systolic blood pressure 112 mm[Hg] [facility] POWERHOUSE MECHANIC APPRENTICE.[employer] Work Phone: [facility] 11-18-2022 14:55-0400 Body height 167.6 cm Fifi Morales MD Work Phone: [facility] 11-18-2022 14:55-0400 Body mass index (BMI) [Ratio] 42.68 kg/m2 Fifi Morales MD Work Phone: [facility] 11-18-2022 14:55-0400 Body temperature 98.91 [degF] Fifi Morales MD Work Phone: [facility] 11-18-2022 14:55-0400 Body weight 119.93 kg Fifi Morales MD Work Phone: [facility] 11-18-2022 14:55-0400 Diastolic blood pressure 78 mm[Hg] Fifi Morales MD Work Phone: [facility] 11-18-2022 14:55-0400 Heart rate 92 /min Fifi Morales MD Work Phone: [facility] 11-18-2022 14:55-0400 Respiratory rate 16 /min Fifi Morales MD Work Phone: [facility] 11-18-2022 14:55-0400 SaO2% (BldA) [Mass fraction] 91 % Fifi Morales MD Work Phone: [facility] 11-18-2022 14:55-0400 Systolic blood pressure 109 mm[Hg] Fifi Morales MD Work Phone: [facility] 10-30-2022 03:14-0400 Diastolic blood pressure 86 mm[Hg] Fifi Morales MD Work Phone: [facility] 10-30-2022 03:14-0400 Heart rate 93 /min Fifi Morales MD Work Phone: [facility] 10-30-2022 03:14-0400 Respiratory rate 16 /min Fifi Morales MD Work Phone: [facility] 10-30-2022 03:14-0400 SaO2% (BldA) [Mass fraction] 99 % Fifi Morales MD Work Phone: [facility] 10-30-2022 03:14-0400 Systolic blood pressure 140 mm[Hg] Fifi Morales MD Work Phone: [facility] 10-29-2022 22:09-0400 Body height 167.6 cm Fifi Morales MD Work Phone: [facility] 10-29-2022 22:09-0400 Body mass index (BMI) [Ratio] 40.35 kg/m2 Fifi Morales MD Work Phone: [facility] 10-29-2022 22:09-0400 Body weight 113.4 kg Fifi Morales MD Work Phone: [facility] 10-29-2022 22:06-0400 Body temperature 96.91 [degF] Fifi Morales MD Work Phone: [facility] 09-10-2022 09:02-0400 Body height 167.6 cm Fifi Morales MD Work Phone: [facility] 09-10-2022 09:02-0400 Body mass index (BMI) [Ratio] 42.42 kg/m2 Fifi Morales MD Work Phone: [facility] 09-10-2022 09:02-0400 Body temperature 97.9 [degF] Fifi Morales MD Work Phone: [facility] 09-10-2022 09:02-0400 Body weight 119.2 kg Fifi Morales MD Work Phone: [facility] 09-10-2022 09:02-0400 Diastolic blood pressure 83 mm[Hg] Fifi Morales MD Work Phone: [facility] 09-10-2022 09:02-0400 Heart rate 85 /min Fifi Morales MD Work Phone: [facility] 09-10-2022 09:02-0400 Respiratory rate 18 /min Fifi Morales MD Work Phone: [facility] 09-10-2022 09:02-0400 SaO2% (BldA) [Mass fraction] 96 % Fifi Morales MD Work Phone: [facility] 09-10-2022 09:02-0400 Systolic blood pressure 125 mm[Hg] Fifi Morales MD Work Phone: [facility] 08-29-2022 21:32-0400 Diastolic blood pressure 77 mm[Hg] Fifi Morales MD Work Phone: [facility] 08-29-2022 21:32-0400 Heart rate 96 /min Fifi Morales MD Work Phone: [facility] 08-29-2022 21:32-0400 Respiratory rate 18 /min Fifi Morales MD Work Phone: [facility] 08-29-2022 21:32-0400 SaO2% (BldA) [Mass fraction] 97 % Fifi Morales MD Work Phone: [facility] 08-29-2022 21:32-0400 Systolic blood pressure 121 mm[Hg] Fifi Morales MD Work Phone: [facility] 08-29-2022 17:24-0400 Body height 167.6 cm Fifi Morales MD Work Phone: [facility] 08-29-2022 17:24-0400 Body mass index (BMI) [Ratio] 41.97 kg/m2 Fifi Morales MD Work Phone: [facility] 08-29-2022 17:24-0400 Body temperature 97.81 [degF] Fifi Morales MD Work Phone: [facility] 08-29-2022 17:24-0400 Body weight 117.94 kg Fifi Morales MD Work Phone: [facility] 06-09-2022 09:04-0400 Body height 167.6 cm Fifi Morales MD Work Phone: [facility] 06-09-2022 09:04-0400 Body mass index (BMI) [Ratio] 41.97 kg/m2 Fifi Morales MD Work Phone: [facility] 06-09-2022 09:04-0400 Body temperature 97.39 [degF] Fifi Morales MD Work Phone: [facility] 06-09-2022 09:04-0400 Body weight 117.94 kg Fifi Morales MD Work Phone: [facility] 06-09-2022 09:04-0400 Diastolic blood pressure 79 mm[Hg] Fifi Morales MD Work Phone: [facility] 06-09-2022 09:04-0400 Heart rate 99 /min Fifi Morales MD Work Phone: [facility] 06-09-2022 09:04-0400 Respiratory rate 20 /min Fifi Morales MD Work Phone: [facility] 06-09-2022 09:04-0400 SaO2% (BldA) [Mass fraction] 97 % Fifi Morales MD Work Phone: [facility] 06-09-2022 09:04-0400 Systolic blood pressure 112 mm[Hg] Fifi Morales MD Work Phone: [facility] 04-29-2022 12:51-0500 Body height 167.6 cm Xander Hodges MD Work Phone: [facility] 04-29-2022 12:51-0500 Body mass index (BMI) [Ratio] 41.16 kg/m2 Xander Hodges MD Work Phone: [facility] 04-29-2022 12:51-0500 Body weight 115.67 kg Xander Hodges MD Work Phone: [facility] 11-04-2021 21:06-0400 Body height 167.6 cm Jose G Emanuel MD Work Phone: [facility] 11-04-2021 21:06-0400 Body mass index (BMI) [Ratio] 40.19 kg/m2 Jose G Emanuel MD Work Phone: [facility] 11-04-2021 21:06-0400 Body weight 112.95 kg Jose G Emanuel MD Work Phone: [facility] 11-04-2021 21:04-0400 Body temperature 97.39 [degF] Jose G Emanuel MD Work Phone: [facility] 11-04-2021 21:04-0400 Diastolic blood pressure 104 mm[Hg] Jose G Emanuel MD Work Phone: [facility] 11-04-2021 21:04-0400 Heart rate 103 /min Jose G Emanuel MD Work Phone: [facility] 11-04-2021 21:04-0400 Respiratory rate 16 /min Jose G Emanuel MD Work Phone: [facility] 11-04-2021 21:04-0400 SaO2% (BldA) [Mass fraction] 100 % Jose G Emanuel MD Work Phone: [facility] 11-04-2021 21:04-0400 Systolic blood pressure 155 mm[Hg] Jose G Emanuel MD Work Phone: [facility] 08-19-2021 15:32-0400 Body height 167.6 cm Ken Klutts POWERHOUSE MECHANIC APPRENTICE.[employer] Work Phone: [facility] 08-19-2021 15:32-0400 Body weight 117.94 kg Ken Klutts POWERHOUSE MECHANIC APPRENTICE.[employer] Work Phone: [facility] 08-19-2021 15:32-0400 Diastolic blood pressure 79 mm[Hg] Ken Klutts POWERHOUSE MECHANIC APPRENTICE.[employer] Work Phone: [facility] 08-19-2021 15:32-0400 Systolic blood pressure 112 mm[Hg] Ken Klutts POWERHOUSE MECHANIC APPRENTICE.[employer] Work Phone: [facility] 01-15-2021 16:05-0500 Body height 167.64 cm Referring Provider Unknown [facility] Work Phone: 01-15-2021 16:05-0500 Body mass index (BMI) [Ratio] 42.78 kg/m2 Referring Provider Unknown [facility] Work Phone: 01-15-2021 16:05-0500 Body surface area Derived from formula 2.25 m2 Referring Provider Unknown [facility] Work Phone: 01-15-2021 16:05-0500 Body temperature 98 [degF] Referring Provider Unknown [facility] Work Phone: 01-15-2021 16:05-0500 Body weight 120.23 kg Referring Provider Unknown [facility] Work Phone: 01-15-2021 16:05-0500 Diastolic blood pressure 84 mm[Hg] Referring Provider Unknown [facility] Work Phone: 01-15-2021 16:05-0500 Heart rate 100 /min Referring Provider Unknown [facility] Work Phone: 01-15-2021 16:05-0500 SaO2% (BldA) [Mass fraction] 98 % Referring Provider Unknown [facility] Work Phone: 01-15-2021 16:05-0500 Systolic blood pressure 126 mm[Hg] Referring Provider Unknown [facility] Work Phone: 11-15-2020 09:01-0400 Body height 167.6 cm Mariely Mar MD Work Phone: [facility] 11-15-2020 09:01-0400 Body weight 118.39 kg Mariely Mar MD Work Phone: [facility] 11-15-2020 09:01-0400 Diastolic blood pressure 72 mm[Hg] Mariely Mar MD Work Phone: [facility] 11-15-2020 09:01-0400 Systolic blood pressure 118 mm[Hg] Mariely Mar MD Work Phone: [facility] 10-15-2020 15:16-0400 Body height 167.6 cm Ken Gomez POWERHOUSE MECHANIC APPRENTICE.[employer] Work Phone: [facility] 10-15-2020 15:16-0400 Body weight 118.39 kg Ken Gomez POWERHOUSE MECHANIC APPRENTICE.[employer] Work Phone: [facility] 10-03-2020 13:27-0400 Body height 165.1 cm Ken Gomez POWERHOUSE MECHANIC APPRENTICE.[employer] Work Phone: [facility] 10-03-2020 13:27-0400 Body weight 118.75 kg Ken Gomez POWERHOUSE MECHANIC APPRENTICE.[employer] Work Phone: [facility] 10-03-2020 13:27-0400 Diastolic blood pressure 81 mm[Hg] Ken Wallutts POWERHOUSE MECHANIC APPRENTICE.[employer] Work Phone: [facility] 10-03-2020 13:27-0400 Systolic blood pressure 117 mm[Hg] Ken Gomez POWERHOUSE MECHANIC APPRENTICE.[employer] Work Phone: [facility] 07-16-2020 23:41-0400 Body temperature 98.01 [degF] Maciej Jaime DO Work Phone: [facility] Work Phone: 07-16-2020 23:41-0400 Diastolic blood pressure 91 mm[Hg] Maciej Jaime DO Work Phone: [facility] Work Phone: 07-16-2020 23:41-0400 Heart rate 94 /min Maciej Jaime DO Work Phone: [facility] Work Phone: 07-16-2020 23:41-0400 Respiratory rate 18 /min Maciej Jaime DO Work Phone: [facility] Work Phone: 07-16-2020 23:41-0400 SaO2% (BldA) [Mass fraction] 96 % Maciej Jaime DO Work Phone: [facility] Work Phone: 07-16-2020 23:41-0400 Systolic blood pressure 137 mm[Hg] Maciej Jaime DO Work Phone: [facility] Work Phone: 07-16-2020 21:37-0400 Body height 167.6 cm Maciej Jaime DO Work Phone: [facility] Work Phone: 07-16-2020 21:37-0400 Body mass index (BMI) [Ratio] 41.97 kg/m2 Maciej Jaime DO Work Phone: [facility] Work Phone: 07-16-2020 21:37-0400 Body weight 117.94 kg Maciej Jaime DO Work Phone: [facility] Work Phone: 04-29-2020 18:44-0500 BMI (Body Mass Index) 41.97 kg/m2 [facility] Work Phone: 04-29-2020 18:44-0500 Body Temperature 97.9 [degF] [facility] Work Phone: 04-29-2020 18:44-0500 Body weight 117.94 kg [facility] Work Phone: 04-29-2020 18:44-0500 BP Diastolic 86 mm[Hg] [facility] Work Phone: 04-29-2020 18:44-0500 BP Systolic 141 mm[Hg] [facility] Work Phone: 04-29-2020 18:44-0500 Height 167.6 cm [facility] Work Phone: 04-29-2020 18:44-0500 Pulse (Heart Rate) 99 /min [facility] Work Phone: 04-29-2020 18:44-0500 Pulse Oximetry 97 % [facility] Work Phone: 04-29-2020 18:44-0500 Respiratory Rate 16 /min [employer] Work Phone: 01-29-2020 11:48-0500 Body Temperature 97.5 [degF] [place]onne [facility] 01-29-2020 11:48-0500 BP Diastolic 84 mm[Hg] [facility] [place] 01-29-2020 11:48-0500 BP Systolic 125 mm[Hg] [facility] [place] 01-29-2020 11:48-0500 Pulse (Heart Rate) 85 /min [facility] [place] 01-29-2020 11:48-0500 Pulse Oximetry 97 % [facility]onne [facility] [place] , [place] 01-29-2020 11:48-0500 Respiratory Rate 16 /min [facility] [place] 01-29-2020 11:46-0500 BMI (Body Mass Index) 38.74 kg/m2 [facility]onne [facility] [place] 01-29-2020 11:46-0500 Body weight 108.86 kg Lavonne Garcia [facility] [place] , [place] 01-29-2020 11:46-0500 Height 167.6 cm Lavonne Garcia [facility] [place] , [place] 12-27-2019 22:29-0400 BP Diastolic 91 mm[Hg] Jose G Emanuel [facility] [place] , [place] 12-27-2019 22:29-0400 BP Systolic 115 mm[Hg] Jose G Emanuel [facility] [place] 12-27-2019 22:29-0400 Pulse (Heart Rate) 96 /min Jose G Emanuel [facility] [place], [place] 12-27-2019 22:29-0400 Pulse Oximetry 100 % Jose G Emanuel [facility] [place] 12-27-2019 22:29-0400 Respiratory Rate 16 /min Jose G Emanuel [facility] [place] 12-27-2019 21:48-0400 Body Temperature 98.1 [degF] Jose G Emanuel [facility] [place] 11-27-2019 03:51-0400 BP Diastolic 81 mm[Hg] [facility] [place] 11-27-2019 03:51-0400 BP Systolic 121 mm[Hg] [facility] [place] 11-27-2019 03:51-0400 Pulse (Heart Rate) 95 /min [facility] [place] 11-27-2019 03:51-0400 Pulse Oximetry 100 % [facility] [place] 11-27-2019 03:51-0400 Respiratory Rate 16 /min [facility] [place] 11-27-2019 02:29-0400 Body Temperature 98.71 [degF] [facility] [place] 09-22-2019 10:54-0400 BP Diastolic 83 mm[Hg] Everette Benitez [facility] [place] 09-22-2019 10:54-0400 BP Systolic 119 mm[Hg] [facility] [place] 09-22-2019 10:54-0400 Pulse (Heart Rate) 82 /min Everette Garcia [facility] - [place], [place] 09-22-2019 10:54-0400 Pulse Oximetry 100 % Everette Garcia [facility], [place] 09-22-2019 10:54-0400 Respiratory Rate 16 /min Everette Garcia [facility] [place] 09-22-2019 00:13-0400 BMI (Body Mass Index) 39.06 kg/m2 Everette Benitez [facility], [place] 09-22-2019 00:13-0400 Body Temperature 97.7 [degF] Everette [facility]itez [facility] [place] 09-22-2019 00:13-0400 Body weight 109.77 kg Everette [facility]z [facility], [place] 09-22-2019 00:13-0400 Height 167.6 cm [facility], [place] 09-18-2019 06:45-0400 BP Diastolic 66 mm[Hg] [facility] [place] , [place] 09-18-2019 06:45-0400 BP Systolic 112 mm[Hg] Renny Fox [facility] [place] 09-18-2019 06:45-0400 Pulse (Heart Rate) 74 /min Renny [facility] [place] 09-18-2019 06:45-0400 Pulse Oximetry 98 % Renny Fox [facility] [place] 09-18-2019 06:45-0400 Respiratory Rate 16 /min [facility] [place] 09-17-2019 22:47-0400 BMI (Body Mass Index) 37.28 kg/m2 Renny [facility] [place] 09-17-2019 22:47-0400 Body Temperature 98.29 [degF] Renny [facility] [place] 09-17-2019 22:47-0400 Body weight 107.96 kg Renny Fox [facility] [place] 09-17-2019 22:47-0400 Height 170.2 cm Renny Fox [facility] [place] 03-20-2019 16:50-0500 Body height 167.6 cm [employer] Work Phone: 03-20-2019 16:50-0500 Body mass index (BMI) [Ratio] 37.61 kg/m2 [employer] Work Phone: 03-20-2019 16:50-0500 Body temperature 98.4 [degF] [employer] Work Phone: 03-20-2019 16:50-0500 Body weight 105.69 kg [employer] Work Phone: 03-20-2019 16:50-0500 Diastolic blood pressure 96 mm[Hg] [employer] Work Phone: 03-20-2019 16:50-0500 Heart rate 90 /min [employer] Work Phone: 03-20-2019 16:50-0500 Respiratory rate 16 /min [employer] Work Phone: 03-20-2019 16:50-0500 SaO2% (BldA) [Mass fraction] 100 % [employer] Work Phone: 03-20-2019 16:50-0500 Systolic blood pressure 136 mm[Hg] [employer] Work Phone: 12-18-2018 12:23-0400 BMI (Body Mass Index) 38.74 kg/m2 [facility] [place] 12-18-2018 12:23-0400 Body Temperature 98.01 [degF] [facility] [place] 12-18-2018 12:23-0400 Body weight 108.86 kg [facility] [place] 12-18-2018 12:23-0400 BP Diastolic 58 mm[Hg] [facility] [place] 12-18-2018 12:23-0400 BP Systolic 115 mm[Hg] [facility] [place] 12-18-2018 12:23-0400 Height 167.6 cm [facility] [place] 12-18-2018 12:23-0400 Pulse (Heart Rate) 84 /min Lavonne Carmona [facility], [place] 12-18-2018 12:23-0400 Pulse Oximetry 99 % Lavonne [facility] , [place] 12-18-2018 12:23-0400 Respiratory Rate 20 /min [facility] [place] Encounters Encounter Date Encounter Type Care Provider Facility Start: 11-23-2024 ambulatory Maciej Ryan [employer] Fac ility:[facility] Start: 11-22-2024 End: 11-22-2024 ambulatory [facility] Facility:[facility] Start: 11-18-2024 End: 11-18-2024 Letter encounter [facility] Start: 11-14-2024 End: 11-14-2024 Office outpatient visit 25 minutes John Hardwick APRN [employer] Work Phone: [facility] Comment on above: Type 2 diabetes anabelle itus with hyperglycemia, with long-term current use of insulin (HCC) (Primary Dx); Class 3 severe obesity with serious comorbidity and body mass index (BMI) of 40.0 to 44.9 in adult, unspecified obesity type; Type 2 diabetes mellitus with hyperlipidemia (HCC) (HCC); Therapeutic drug monitoring Start: 11-14-2024 End: 11-14-2024 ambulatory JOHN HARDWICK [facility] Start: 11-14-2024 End: 11-16-2024 Telephone encounter John Hardwick APRN [employer] Work Phone: [facility] Comment on above: Other (Manish SPENCE ) Start: 10-18-2024 End: 10-18-2024 ambulatory Rafael Bear [facility] Start: 10-11-2024 End: 10-11-2024 ambulatory Kayleen Helton Facility:[facility] Start: 09-27-2024 End: 09-27-2024 ambulatory Jaymie Montoya Facility:[facility] Start: 09-25-2024 End: 09-25-2024 ambulatory Keagan Fady Facility:[facility] Start: 09-06-2024 End: 09-06-2024 ambulatory Nomi Duvall Facility:[facility] Start: 08-29-2024 End: 08-29-2024 ambulatory Keagan Sarasota Facility:[facility] Start: 08-25-2024 End: 09-05-2024 Telephone encounter Fifi Morales MD Work Phone: [facility] Comment on above: Record Request Start: 07-26-2024 End: 07-26-2024 Patient encounter procedure González FISCHER -[facility] Work Phone: Start: 07-26-2024 End: 07-26-[address] Keagan Shrestha MD Work Phone: [facility] Work Phone: Start: 07-26-2024 End: 07-26-2024 ambulatory González FISCHER Facility:[facility] Start: 07-16-2024 End: 07-16-2024 Emergency department patient visit Mukund Fonseca MD Work Phone: [facility] Comment on above: Dysuria (Primary Dx) Start: 07-11-2024 End: 07-11-2024 Patient encounter procedure Kayleen Helton NP-C -[facility] Work Phone: Start: 07-11-2024 End: 07-11-2024 ambulatory Kayleen Helton [facility] Start: 06-09-2024 End: 06-09-2024 Office outpatient visit 25 minutes John Hardwick POWERHOUSE MECHANIC APPRENTICE - NEWS ASSISTANT Work Phone: [facility] Comment on above: Type 2 diabetes anabelle itus with hyperglycemia, with long-term current use of insulin (HCC) (Primary Dx); Class 3 severe obesity with serious comorbidity and body mass index (BMI) of 40.0 to 44.9 in adult, unspecified obesity type (HCC); Thyromegaly; Therapeutic drug monitoring Start: 06-09-2024 End: 06-09-2024 ambulatory JOHN HARDWICK [facility] Start: 05-30-2024 End: 05-30-2024 Patient encounter procedure Kayleen Helton DISPLAY MAKER-C -[facility] Work Phone: Start: 05-30-2024 End: 05-30-2024 ambulatory Keagan Fady Facility:[facility] Start: 05-04-2024 End: 05-04-2024 Telephone encounter John Hardwick APRN - NEWS ASSISTANT Work Phone: [facility] Comment on above: Other Other (Chart notes a nd CMN) Start: 05-03-2024 End: 05-03-2024 Patient encounter procedure Kayleen Helton DISPLAY MAKER-C -[facility] Work Phone: Start: 05-03-2024 End: 05-03-2024 Kayleen Helton DISPLAY MAKER-C -[facility] Work Phone: Start: 05-03-2024 End: 05-03-[address] Keagan Shrestha MD Work Phone: [facility] Work Phone: Start: 05-03-2024 End: 05-03-2024 ambulatory Kayleen Helton Facility:[facility] Start: 04-26-2024 End: 04-26-2024 Patient encounter procedure Tiffanie Mcintyre PA-C -[facility] Work Phone: Start: 04-26-2024 End: 04-26-2024 Tiffanie Mcintyre PA-C -[facility] Work Phone: Start: 04-26-2024 End: 04-26-2024 ambulatory Tiffanie FISCHER [facility] Start: 04-21-2024 ambulatory Keagan Sarasota Facility :[facility] Start: 04-14-2024 ambulatory Keagan Fady Facility :[facility] Start: 04-07-2024 End: 04-07-2024 Subsequent hospital visit by physician Myesha Dunbar POWERHOUSE MECHANIC APPRENTICE - RETOUCHER PHOTOENGRAVING Work Phone: [facility] Comment on above: Thyromegaly Start: 04-07-2024 End: 04-07-2024 ambulatory MYESHA DUNBAR [facility] Start: 04-04-2024 End: 04-04-2024 Office outpatient visit 25 minutes Myesha Dunbar POWERHOUSE MECHANIC APPRENTICE - RETOUCHER PHOTOENGRAVING Work Phone: [facility] Comment on above: Type 2 diabetes anabelle itus with hyperglycemia, with long-term current use of insulin (HCC) (Primary Dx); Obesity (BMI 30-39.9); Thyromegaly Start: 04-04-2024 End: 04-04-2024 ambulatory MYESHA DUNBAR [facility] Start: 03-31-2024 ambulatory Keaganmiguelina Patinolay Facility :[facility] Start: 03-31-2024 Non-patient / Non-visit Ana chilel [facility] Start: 03-31-2024 [facility] Start: 03-30-2024 Non-patient / Non-visit Dr. Boston Dewitt [facility] Start: 03-30-2024 Dr. Shelbi Vargas [facility] Start: 03-29-2024 ambulatory Keaganflaco Patinolay Facility :[facility] Start: 03-29-2024 Non-patient / Non-visit Amber Lua ms [facility] Start: 03-29-2024 Amber Ram [facility] Start: 03-28-2024 Non-patient / Non-visit Dr. Boston Dewitt [facility] Start: 03-28-2024 Dr. Shelbi Vargas [facility] Start: 03-27-2024 Amber Ram [facility] Start: 03-27-2024 ambulatory Shelbi Markham:[facility] Start: 03-27-2024 End: 03-31-2024 Evaluation and management of inpatient Dr. Shelbi Dewitt DO [facility] Work Phone: Start: 03-27-2024 End: 03-31-2024 [facility]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 Ty Irizarry DO Work Phone: Start: 03-06-2024 Urinalysis complete panel - Urine Ty Irizarry DO Work Phone: Start: 03-06-2024 Urnls dip stick/tablet reagent auto microscopy Ty Irizarry DO Work Phone: Start: 03-03-2024 Ultrasonography for biophysical profile without non-stress testing Dr. Keagan Shrestha MD Work Phone: Start: 02-22-[address] Keagan Shrestha MD Work Phone: Start: 01-29-2024 X-ray of chest, PA and lateral views Dr. Keagan Shrestha MD Work Phone: Start: 01-12-2024 Radiologic exam chest 2 views Arnaldo lema APRN.RETOUCHER PHOTOENGRAVING Work Phone: Start: 01-12-2024 STREP A MOLECULAR (POC) [facility] Provider Start: 11-10-2023 End: 11-10-2023 Creatinine other source Bala Concepcion DO Work Phone: Start: 08-16-2023 UA DIP,URINE HCG (POC) [facility] Provider Start: 06-21-2023 Esophagogastroduodenoscopy No Primary Ca re Physician Start: 04-26-2023 Comprehensive metabolic panel Fifi muhammad MD Work Phone: Start: 04-26-2023 Thyrotropin [Units/volume] in Serum or Plasma Fifi Morales MD Work Phone: Start: 03-29-2023 Radionuclide imaging of liver and/or biliary tract using radioactive isotope No Primary Care Physician Start: 02-26-2023 Hemoglobin glycosylated a1c Fifi lim MD Work Phone: Start: 12-23-2022 STREP A MOLECULAR (POC) Tia Harding POWERHOUSE MECHANIC APPRENTICE.RETOUCHER PHOTOENGRAVING Work Phone: Start: 12-03-2022 Plain chest X-ray Start: 12-03-2022 US scan of gallbladder Start: 11-18-2022 Hemoglobin glycosylated a1c Fifi lim MD Work Phone: Start: 09-10-2022 Hemoglobin glycosylated a1c Fifi lim MD Work Phone: Start: 08-29-2022 Urinalysis complete panel - Urine Kevin Aleman MD Work Phone: Start: 08-29-2022 Urine test visual color cmprsn meths Kevin Aleman MD Work Phone: Start: 08-29-2022 Urnls dip stick/tablet reagent auto microscopy Kevin Aleman MD Work Phone: Start: 06-09-2022 Hemoglobin glycosylated a1c Fifi lim MD Work Phone: Start: 11-08-2021 Lipid 1996 panel - Serum or Plasma Raimundo Morales MD Work Phone: Start: 05-23-2021 Basic metabolic panel calcium total Maciej Jaime DO Work Phone: Start: 05-23-2021 Lipid panel Maciej Jaime DO Work Phone: Start: 04-18-2021 Radex spine lumbosacral 2/3 views Yaw Cruz POWERHOUSE MECHANIC APPRENTICE - RETOUCHER PHOTOENGRAVING Work Phone: Start: 11-15-2020 Iaadiadoo trichomonas vaginalis Mariely Mar MD Work Phone: Start: 10-03-2020 Iaadiadoo trichomonas vaginalis Ken Gomez POWERHOUSE MECHANIC APPRENTICE.RETOUCHER PHOTOENGRAVING Work Phone: Start: 09-05-2020 Brncdilat rspse spmtry pre&post-brncdilat admn Maciej Jaime DO Work Phone: Start: 07-30-2020 Radiologic exam chest 2 views Maciej Jaime DO Work Phone: Start: 04-23-2020 Microscopic observation [Identifier] in Cervix by Cyto stain Maciej Jaime DO Work Phone: Start: 01-29-2020 Radiologic exam chest single view Lavonne Vallejo Work Phone: Start: 09-22-2019 Mri spinal canal cervical w/o contrast matrl Donnell Her Work Phone: Start: 09-22-2019 Basic metabolic panel calcium total Everette Benitez Work Phone: Start: 09-22-2019 Urine test visual color cmprsn meths Donnell Her Work Phone: Start: 09-22-2019 Urnls dip stick/tablet rgnt auto w/o microscopy Donnell Her Work Phone: Start: 09-22-2019 Blood count complete auto&auto difrntl wbc Donnell Her Work Phone: Start: 09-18-2019 Ct cervical spine w/o contrast material Donnell Her Work Phone: Start: 09-18-2019 Ct head/brain w/o contrast material Donnell Her Work Phone: Start: 09-17-2019 Radex forearm 2 views Donnell Her Work Phone: Start: 09-17-2019 Radex hand minimum 3 views Donnell Her Work Phone: Start: 09-17-2019 Radex humerus minimum 2 views Donnell Tam Work Phone: Start: 09-17-2019 Radiologic exam chest single view James Her Work Phone: Start: 12-18-2018 Radex wrist complete minimum 3 views Lavonne Carmona Work Phone: Laboratory test result abnormal Abnormal laboratory test Ken Gomez APRN.RETOUCHER PHOTOENGRAVING Work Phone: Plan of Treatment Date Care Activity Detail Author Start: 2074 RSV Immunization for Adults (1 - 1-dose 75+ series) RSV Immunization for Adults (1 - 1-dose 75+ series) [facility] Start: 2059 RSV Immunization aged 60 or older (1 - 1-dose 60+ series) RSV Immunization aged 60 or older (1 - 1-dose 60+ series) [facility] Start: 2049 Shingles (RZV) Vaccine (1 of 2) Shingles (RZV) Vaccine (1 of 2) [facility] Start: 2049 Zoster Vaccines (1 of 2) Zoster Vaccines (1 of 2) [facility] Start: 11-16-2025 Glaucoma screening Diabetes: Retinopathy Screening [facility] Start: 11-14-2025 Hemoglobin A1c measurement Diabetes: Hemoglobin A1C [facility] Start: 06-09-2025 Diabetes: Estimated Glomerular Filtration Rate for [facility]ney Health Diabetes: Estimated Glomerular Filtration Rate for Kidney Health [facility] Start: 06-09-2025 Diabetes: Urine Albumin-Creatinine Ratio for [facility]ney Health Diabetes: Urine Albumin-Creatinine Ratio for Kidney Health [facility] Start: 06-09-2025 Hemoglobin A1c measurement Diabetes: Hemoglobin A1C [facility] Start: 06-09-2025 Lipid panel Lipid Panel [facility] Start: 05-23-2025 End: 05-23-2025 Patient encounter procedure 05/23/2025 8:00 AM EDT Office Visit [facility] [address] [place] [phone] John Hardwick APRN - NEWS ASSISTANT [address] [facility] Start: 05-14-2025 Depression Monitoring Depression Monitoring [facility] Start: 02-28-2025 Diabetes: Estimated Glomerular Filtration Rate for Kidney Health Diabetes: Estimated Glomerular Filtration Rate for Kidney Health [facility] Start: 01-24-2025 End: 01-24-2025 Patient encounter procedure 01/24/2025 1:30 PM EST Office Visit [facility] [address] [place] [phone] John Hardwick APRN - NEWS ASSISTANT [address] [facility] Start: 01-12-2025 End: 01-12-2025 Patient encounter procedure 01/12/2025 9:00 AM EST Office Visit [facility] [address] [place] [phone] John Hardwick APRN - NEWS ASSISTANT [address] [place] [address] [place] [address] [facility] Start: 12-01-2024 Diabetic foot examination Diabetes: Foot Exam [facility] Start: 12-01-2024 Glaucoma screening Diabetes: Retinopathy Screening [facility] Start: 11-14-2024 End: 11-14-2024 Patient encounter procedure 11/14/2024 2:30 PM EDT Office Visit [facility] [address] [place] [phone] John Hardwick APRN - NEWS ASSISTANT [address] [facility] Start: 11-09-2024 Diabetes: Urine Albumin-Creatinine Ratio for Kidney Health Diabetes: Urine Albumin-Creatinine Ratio for Kid[facility] Health [facility] Start: 11-09-2024 Hemoglobin A1c measurement Diabetes: Hemoglobin A1C [facility] Start: 11-06-2024 COVID-19 Vaccine ( season) COVID-19 Vaccine ( season) [facility] Start: 11-06-2024 Influenza vaccination [facility] Start: 09-07-2024 End: 09-07-2024 Patient encounter procedure 09/07/2024 9:30 AM EDT Office Visit [facility] [address] [place] [phone] John Hardwick APRN - NEWS ASSISTANT [address] [facility] Start: 07-26-2024 Bacteria identified in Urine by Culture Urine Culture [facility] Start: 07-26-2024 Urinalysis complete panel - Urine [facility] Start: 07-26-2024 [facility] Start: 07-11-2024 Patient referral [facility] Work Phone: Start: 06-09-2024 End: 06-09-2024 Patient encounter procedure 06/09/2024 1:00 PM EDT Office Visit [facility] [address] [place] [phone] John Hardwick, POWERHOUSE MECHANIC APPRENTICE - NEWS ASSISTANT [address] [facility] [address] [place] [address] [facility] Start: 04-26-2024 Diabetes: Estimated Glomerular Filtration Rate for Kidney Health Diabetes: Estimated Glomerular Filtration Rate for Kidney Health [facility] Start: 04-09-2024 Glaucoma screening Diabetes: Retinopathy Screening [facility] Start: 04-07-2024 End: 04-07-2024 Patient encounter procedure 04/07/2024 9:30 AM EST Appointment [facility] [address] [place] [address] Myesha Dunbar, MILADIS - RETOUCHER PHOTOENGRAVING [address] [place] [address] [facility] Start: 04-04-2024 End: 04-04-2025 Comprehensive metabolic 1998 panel - Serum or Plasma Comprehensive metabolic panel Lab Routine Type 2 diabetes mellitus with hyperglycemia, with long-term current use of insulin (HCC) Expected: 04/04/2024 (Approximate), Expires: 04/04/2025 [facility] Comment on above: Expected: 04/04/2024 (Approximate), Expi res: 04/04/2025 Start: 04-04-2024 End: 04-04-2025 Hemoglobin A1c measurement Hemoglobin A1c Lab Routine Type 2 diabetes mellitus with hyperglycemia, with long-term current use of insulin (HCC) Expected: 04/04/2024 (Approximate), Expires: 04/04/2025 [facility] Comment on above: Expected: 04/04/2024 (Approximate), Expi res: 04/04/2025 Start: 04-04-2024 End: 04-04-2025 Lipid 1996 panel - Serum or Plasma Lipid panel Lab Routine Type 2 diabetes mellitus with hyperglycemia, with long-term current use of insulin (HCC) Expected: 04/04/2024 (Approximate), Expires: 04/04/2025 [facility] Comment on above: Expected: 04/04/2024 (Approximate), Expi res: 04/04/2025 Start: 04-04-2024 End: 04-04-2025 Microalbumin/Creatinine panel in random Urine Microalbumin / creatinine urine ratio Lab Routine Type 2 diabetes mellitus with hyperglycemia, with long-term current use of insulin (HCC) Expected: 04/04/2024 (Approximate), Expires: 04/04/2025 [facility] Work Phone: Comment on above: Expected: 04/04/2024 (Approximate), Expi res: 04/04/2025 Start: 04-04-2024 End: 04-04-2025 Thyrotropin [Units/volume] in Serum or Plasma TSH Lab Routine Type 2 diabetes mellitus with hyperglycemia, with long-term current use of insulin (HCC) Obesity (BMI 30-39.9) Expected: 04/04/2024 (Approximate), Expires: 04/04/2025 [facility] Comment on above: Expected: 04/04/2024 (Approximate), Expi res: 04/04/2025 Start: 04-04-2024 End: 04-04-2025 Thyroxine (T4) free [Mass/volume] in Serum or Plasma T4, free Lab Routine Type 2 diabetes mellitus with hyperglycemia, with long-term current use of insulin (HCC) Obesity (BMI 30-39.9) Expected: 04/04/2024 (Approximate), Expires: 04/04/2025 [facility] Comment on above: Expected: 04/04/2024 (Approximate), Expi res: 04/04/2025 Start: 04-04-2024 End: 04-04-2025 US Thyroid gland US thyroid Imaging Routine Thyromegaly Expected: 04/04/2024, Expires: 04/04/2025 [facility] Comment on above: Expected: 04/04/2024, Expires: Start: 03-31-2024 Patient discharge [facility] Start: 03-29-2024 [facility] Start: 03-29-2024 [facility] Start: 03-29-2024 Consultation [facility] Start: 03-28-2024 [facility] Start: 03-28-2024 Documentation procedure [facility] Start: 03-28-2024 Administration of blood product [facility] Start: 03-28-2024 Administration of medication [facility] Start: 03-28-2024 Application of ice collar, cap or bag [facility] Start: 03-28-2024 Catheterization of vein [facility] Start: 03-28-2024 Introduction of urinary catheter [facility] Start: 03-28-2024 Measuring intake and output [facility] Start: 03-28-2024 Notification of physician [facility] Start: 03-28-2024 Procedure discontinued [facility] Start: 03-28-2024 Provision of activity privileges [facility] Start: 03-28-2024 Vital signs measurements [facility] Start: 03-28-2024 End: 03-28-2024 [facility] Start: 03-28-2024 [facility] Start: 03-27-2024 Admission procedure [facility] Start: 03-24-2024 biophysical profile w/o non-stress testing [facility] Start: 03-19-2024 Nonstress test [facility] Start: 03-19-2024 Obstetric monitoring [facility] Start: 03-19-2024 Vital signs measurements [facility] Start: 03-19-2024 [facility] Start: 03-19-2024 Patient discharge [facility] Start: 03-17-2024 Patient discharge [facility] Start: 03-16-2024 Nonstress test [facility] Start: 03-16-2024 Obstetric monitoring [facility] Start: 03-16-2024 Vital signs measurements [facility] [facility] Start: 03-16-2024 [facility] Start: 03-16-2024 Nonstress test [facility] Start: 03-16-2024 Obstetric monitoring [facility] Start: 03-16-2024 Vital signs measurements [facility] Start: 03-16-2024 [facility] Start: 03-16-2024 Assay of blood/uric acid [facility] Start: 03-16-2024 Blood count complete automated [facility] Start: 03-16-2024 Collection venous blood venipuncture [facility] Start: 03-16-2024 Creatinine blood [facility] Start: 03-16-2024 Creatinine other source [facility] Start: 03-16-2024 monitoring labor phys written report [facility] Start: 03-16-2024 nonstress test [facility] Start: 03-16-2024 Protein total xcpt refractometry urine [facility] Start: 03-16-2024 Transferase alanine amino alt sgpt [facility] Start: 03-16-2024 Transferase aspartate amino ast sgot [facility] Start: 03-16-2024 Patient discharge [facility] Start: 03-11-2024 Nonstress test [facility] Start: 03-11-2024 Obstetric monitoring [facility] Start: 03-11-2024 Vital signs measurements [facility] Start: 03-11-2024 [facility] Start: 03-11-2024 Patient discharge [facility] Start: 03-09-2024 Nonstress test [facility] Start: 03-09-2024 Obstetric monitoring [facility] Start: 03-09-2024 Vital signs measurements [facility] Start: 03-09-2024 [facility] Start: 03-09-2024 Patient discharge [facility] Start: 03-09-2024 [facility] Start: 03-02-2024 [facility] Start: 02-27-2024 Hemoglobin A1c measurement Diabetes: Hemoglobin A1C [facility] Start: 02-25-2024 RSV Vaccine (1 - Risk 1-dose series) RSV Vaccine (1 - Risk 1-dose series) [facility] Start: 02-24-2024 RSV Immunization for Adults (1 - Risk 1-dose series) RSV Immunization for Adults (1 - Risk 1-dose series) [facility] Start: 02-24-2024 Nonstress test [facility] Start: 02-24-2024 Obstetric monitoring [facility] Start: 02-24-2024 Vital signs measurements [facility] Start: 02-24-2024 [facility] Start: 02-24-2024 [facility] Start: 02-24-2024 Vital signs measurements [facility] Start: 02-24-2024 Patient discharge [facility] Start: 02-22-2024 [facility] Start: 02-09-2024 Hemoglobin A1c/Hemoglobin.total in Blood HbA1c [facility] Start: 01-29-2024 [facility] Start: 01-08-2024 Chlamydia Screening () Chlamydia Screening () [facility] Start: 01-08-2024 GC (Gonorrhea) Screening () GC (Gonorrhea) Screening () [facility] Start: 12-02-2023 End: 12-01-2024 C-Peptide C-Peptide Lab Routine Pre-existing type 2 diabetes mellitus during in second trimester Expected: 12/02/2023 (Approximate), Expires: 12/01/2024 [facility] Work Phone: Comment on above: Expected: 12/02/2023 (Approximate), Expi res: 12/01/2024 Start: 12-02-2023 End: 12-01-2024 Comprehensive metabolic 1998 panel - Serum or Plasma Comprehensive metabolic panel Lab Routine Pre-existing type 2 diabetes mellitus during in second trimester Expected: 12/02/2023 (Approximate), Expires: 12/01/2024 [facility] Comment on above: Expected: 12/02/2023 (Approximate), Expi res: 12/01/2024 Start: 12-02-2023 End: 12-01-2024 Glutamic acid decarboxylase (Sendout) Glutamic acid decarboxylase (Sendout) Lab Routine Pre-existing type 2 diabetes mellitus during in second trimester Expected: 12/02/2023 (Approximate), Expires: 12/01/2024 [facility] Comment on above: Expected: 12/02/2023 (Approximate), Expi res: 12/01/2024 Start: 11-24-2023 End: 11-24-2023 Professional / ancillary services management 11/24/2023 1:00 PM EDT Ancillary Procedure Visit [facility]aternal [facility] [address] [place] [address] Shelbi Parmar, [address] [facility] [address] [place] [address] [facility] Start: 11-19-2023 Hemoglobin A1c measurement Diabetes: Hemoglobin A1C [facility] Start: 11-07-2023 COVID-19 ( season) COVID-19 () [facility] Start: 11-07-2023 COVID-19 Vaccine () COVID-19 Vaccine () [facility] Start: 11-07-2023 Covid-19 Vaccine () Covid-19 Vaccine () [facility] Start: 11-07-2023 FLU (#1) FLU (#1) [facility] Start: 11-07-2023 Influenza vaccination [facility] Start: 09-11-2023 Hemoglobin A1c measurement Diabetes: Hemoglobin A1C [facility] Start: 07-19-2023 End: 07-19-2023 Patient encounter procedure 07/19/2023 8:40 AM EDT Office Visit [facility] [address] [facility] [address] [place] [phone] Robb Orozco MD [address] [facility] [address] [place] [phone] [facility] Start: 06-26-2023 [facility] Start: 06-21-2023 Esophagogastroduodenoscopy transoral diagnostic EGD DIAGNOSTIC BRUSH WASH [facility] Start: 06-21-2023 Patient discharge [facility] Start: 06-17-2023 Nuclear Ab [Presence] in Serum [facility] Start: 06-17-2023 [facility] Start: 06-07-2023 End: 06-07-2023 Patient encounter procedure 06/07/2023 3:20 PM EDT Office Visit [facility] Medicine [address] [place] [phone] Fifi Morales MD [address], [place] [phone] [facility] Start: 05-31-2023 Patient referral [facility] Work Phone: Start: 05-16-2023 [facility] Start: 04-26-2023 End: 04-26-2023 Patient encounter procedure 04/26/2023 3:00 PM EST Office Visit [facility] [address] [place] [phone] Fifi Morales MD [address] [place] [address] [facility] Start: 04-23-2023 PAP TESTING PAP TESTING [facility] Start: 04-23-2023 Screening for malignant neoplasm of cervix [facility] Start: 04-09-2023 Glaucoma screening Diabetes: Retinopathy Screening [facility] Start: 03-13-2023 Depression Monitoring Depression Monitoring [facility] Start: 03-13-2023 Depresssion Monitoring Depresssion Monitoring [facility] Start: 03-08-2023 Behavioral Health Screening Behavioral Health Screening [facility] Start: 02-26-2023 End: 02-26-2023 Patient encounter procedure 02/26/2023 1:40 PM EST Office Visit [facility] [address] [place] [phone] Fifi Morales MD [address], [place] [phone] [facility] Start: 12-25-2022 [facility] Start: 12-11-2022 End: 12-11-2022 Patient encounter procedure 12/11/2022 8:00 AM EDT Office Visit [facility] [address] [place] [phone] Fifi Morales MD [address], [place] [phone] [facility] Start: 12-09-2022 Depresssion Monitoring Depresssion Monitoring [facility] Start: 11-08-2022 Diabetes: Urine Albumin-Creatinine Ratio for Kidney Health Diabetes: Urine Albumin-Creatinine Ratio for Kidney Health [facility] Start: 11-08-2022 Lipid panel Lipid Panel [facility] Start: 11-08-2022 Urine screening for protein Diabetes: Urine Protein Screening [facility] Start: 11-06-2022 Covid-19 Vaccine () Covid-19 Vaccine () [facility] Start: 11-06-2022 Influenza vaccination [facility] Start: 10-15-2022 End: 10-16-2023 Bacteria identified in Urine by Culture URINE CULTURE Microbiology Routine Urinary tract infection without hematuria, site unspecified Expected: 10/15/2022, Expires: 10/16/[address] [facility] Work Phone: Comment on above: Expected: 10/15/2022, Expires: 4 Start: 10-15-2022 End: 12-15-2022 Urinalysis complete panel - Urine URINALYSIS, WITH MICROSCOPIC Lab Routine Urinary tract infection without hematuria, site unspecified Expected: 10/15/2022, Expires: 12/15/[address] [facility] Work Phone: Comment on above: Expected: 10/15/2022, Expires: 3 Start: 09-10-2022 End: 09-10-2022 Patient encounter procedure [facility] Start: 09-08-2022 Hemoglobin A1c measurement Diabetes: Hemoglobin A1C [facility] Start: 06-09-2022 End: 06-09-2022 Patient encounter procedure 06/09/2022 Office Visit Family Medicine Fifi Morales MD [address], [place] [phone] [facility] Start: 05-23-2022 Hemoglobin A1c measurement A1C test (Diabetic or Prediabetic) [facility] Start: 05-23-2022 Lipid panel [facility] Start: 05-23-2022 Urine screening for protein Diabetic microalbuminuria test [facility] Start: 05-20-2022 End: 05-20-2022 Patient encounter procedure 05/20/2022 Office Visit Otolaryngology Xander Hodges MD [address] [place] [address] [facility] Start: 04-29-2022 End: 04-29-2022 Patient encounter procedure 04/29/2022 Office Visit Otolaryngology Xander Hodges MD [address] [place] [address] [facility] Start: 03-08-2022 DEPRESSION ASSESSMENT DEPRESSION ASSESSMENT [facility] Start: 02-07-2022 Hemoglobin A1c measurement Diabetes: Hemoglobin A1C [facility] Start: 11-29-2021 DTaP/Tdap/Td vaccine (2 - Td) DTaP/Tdap/Td vaccine (2 - Td) [place] Start: 11-15-2021 CHLAMYDIA SCREENING (18-24) CHLAMYDIA SCREENING (18-24) [facility] Start: 11-15-2021 GC (GONORRHEA) SCREENING (18-24) GC (GONORRHEA) SCREENING (18-24) [facility] Start: 11-15-2021 Screening for Chlamydia trachomatis Chlamydia screen [facility] Start: 11-13-2021 End: 11-13-2021 Patient encounter procedure 11/13/2021 Office Visit Otolaryngology Xander Hodges MD [address] [place] [address] [facility] Start: 11-06-2021 Influenza vaccination [facility] Start: 11-06-2021 End: 11-06-2021 Patient encounter procedure 11/06/2021 Office Visit Family Medicine Maciej Jaime, DO [address] [place], [place] [phone] [facility] Start: 10-30-2021 Hemoglobin A1c measurement A1C test (Diabetic or Prediabetic) [facility] Start: 10-03-2021 CHLAMYDIA SCREENING (18-24) CHLAMYDIA SCREENING (18-24) [facility] Start: 10-03-2021 GC (GONORRHEA) SCREENING (18-24) GC (GONORRHEA) SCREENING (18-24) [facility] Start: 09-19-2021 Diabetic retinal exam Diabetic retinal exam [facility] Start: 08-08-2021 End: 08-08-2021 Patient encounter procedure 08/08/2021 Office Visit Family Medicine Maciej Jaime, DO [address] [place], [place] [phone] [facility] Start: 07-30-2021 Hemoglobin A1c measurement A1C test (Diabetic or Prediabetic) [facility] Work Phone: Start: 05-31-2021 Screening for Chlamydia trachomatis Chlamydia screen [facility] Start: 05-28-2021 Lipid panel Lipid screen [facility] Start: 05-23-2021 End: 05-23-2021 Patient encounter procedure 05/23/2021 Office Visit Family Medicine Maciej Jaime, DO [address] [place], [place] [phone] [facility] Start: 05-20-2021 End: 05-20-2021 Patient encounter procedure 05/20/2021 Office Visit Family Medicine Maciej Jaime, DO [address] [place], [place] [phone] [facility] Start: 05-16-2021 End: 05-16-2021 Patient encounter procedure 05/16/2021 Office Visit Sports Medicine Dagoberto Martinez DO [address] [place], [place] [phone] [facility] [place] Start: 05-01-2021 Diabetic microalbuminuria test Diabetic microalbuminuria test [facility] Start: 05-01-2021 Hemoglobin A1c measurement A1C test (Diabetic or Prediabetic) [facility] Work Phone: Start: 05-01-2021 Urine screening for protein Diabetic microalbuminuria test [facility] Start: 03-08-2021 DEPRESSION ASSESSMENT DEPRESSION ASSESSMENT [facility] Start: 02-03-2021 End: 02-03-2021 Patient encounter procedure 02/03/2021 Office Visit Family Medicine Maciej Jaime, DO [address] [place] [address] [facility] Start: 11-26-2020 End: 10-15-2021 DHEA-S BLD DHEA-S BLD Lab Routine Abnormal laboratory test Expected: 11/26/2020, Expires: 10/15/2021 [facility] Comment on above: Expected: 11/26/2020, Expires: Start: 11-06-2020 Influenza vaccination [facility] Start: 10-30-2020 End: 10-30-2020 Patient encounter procedure 10/30/2020 Office Visit Family Medicine Maciej Jaime, DO [address] [place] [address] [phone] [facility] Start: 10-01-2020 End: 10-01-2020 Patient encounter procedure 10/01/2020 Office Visit Family Medicine Maciej Jaime, DO [address] [place] [address] [phone] [facility] Start: 09-02-2020 End: 09-02-2020 Patient encounter procedure 09/02/2020 Office Visit Family Medicine Maciej Jaime, DO [address] [place] [address] [phone] [facility] Start: 07-30-2020 End: 07-30-2020 Patient encounter procedure 07/30/2020 Office Visit Family Medicine Maciej Jaime DO [address] [place], [place] [address] [facility] Start: 05-01-2020 End: 05-01-2020 Office Visit 05/01/2020 Office Visit Family Medicine Maciej Jaime DO [address] [place], [place] [phone] [facility] Start: 02-12-2020 Microscopic observation [Identifier] in Cervix by Cyto stain Pap Smear [facility] Start: 02-12-2020 Screening for malignant neoplasm of cervix [facility] Start: 11-07-2019 Influenza vaccination [place] Start: 11-06-2018 Influenza vaccination Flu vaccine (#1) [place] Start: 2018 DTaP/Tdap/Td vaccine (1 - Tdap) DTaP/Tdap/Td vaccine (1 - Tdap) [facility] Start: 2018 DTaP/Tdap/Td Vaccines (1 - Tdap) DTaP/Tdap/Td Vaccines (1 - Tdap) [facility] Start: 2018 Hepatitis A (HAV) Vaccine (optional start 19+ years) Hepatitis A (HAV) Vaccine (optional start 19+ years) [facility] Start: 2018 Hepatitis B (1 of 3 - 19+ 3-dose series) Hepatitis B (1 of 3 - 19+ 3-dose series) [facility] Start: 2018 Hepatitis B vaccination Hepatitis B (HBV) Vaccine (1 of 3 - 19+ 3-dose series) [facility] Start: 2018 Hepatitis B Vaccine (1 of 3 - 19+ 3-dose series) Hepatitis B Vaccine (1 of 3 - 19+ 3-dose series) [facility] Start: 2018 Hepatitis B vaccine (1 of 3 - Risk 3-dose series) Hepatitis B vaccine (1 of 3 - Risk 3-dose series) [facility] Start: 2018 Hepatitis B Vaccines (1 of 3 - 19+ 3-dose series) Hepatitis B Vaccines (1 of 3 - 19+ 3-dose series) [facility] Start: 2018 Tetanus vaccination Tetanus (Td or Tdap) [facility] Start: 2018 Urine microalbumin profile [facility] Start: 2017 Anxiety Screening Anxiety Screening [facility] Start: 2017 CHLAMYDIA SCREENING (18-24) CHLAMYDIA SCREENING (18-24) [facility] Start: 2017 Depression Screening Depression Screening [facility] Start: 2017 GC (GONORRHEA) SCREENING (18-24) GC (GONORRHEA) SCREENING (18-24) [facility] Start: 2017 HEPATITIS C SCREENING HEPATITIS C SCREENING [facility] Start: 2017 Hepatitis C screening Hepatitis C Antibody [facility] Start: 2017 HIV SCREENING HIV SCREENING [facility] Start: 2017 HIV screening HIV Screening [facility] Start: 2017 Screening for Chlamydia trachomatis STI Screening (Age 18-24) [facility] Start: 2017 Tetanus + diphtheria + acellular pertussis vaccine (product) Tdap [facility] Start: 2015 MenB (1 of 2 - MenB 2-Dose Series Bexsero) MenB (1 of 2 - MenB 2-Dose Series Bexsero) [facility] Start: 2015 Meningococcal B Vaccine: Consider Based On Risk (1 of 2 - Patient Seeks Protection) Meningococcal B Vaccine: Consider Based On Risk (1 of 2 - Patient Seeks Protection) [facility] Start: 2015 MENINGOCOCCAL B: Consider based on risk (1 of 2 - Patient Seeks Protection) MENINGOCOCCAL B: Consider based on risk (1 of 2 - Patient Seeks Protection) [facility] Start: 2015 Screening for Chlamydia trachomatis Chlamydia screen [facility] [place] Start: 2014 HIV screening [facility] Start: 2014 HPV (1 - 3-dose series) HPV (1 - 3-dose series) [facility] Start: 2014 HPV Vaccine (1 - 3-dose series) HPV Vaccine (1 - 3-dose series) [facility] Start: 2014 HPV Vaccines (1 - 3-dose series) HPV Vaccines (1 - 3-dose series) [facility] Start: 2014 Vaccination for human papillomavirus HPV Vaccine (1 - 3-dose series) [facility] Start: 2013 PEDS TO ADULT TRANSITION ANNUAL ASSESSMENT PEDS TO ADULT TRANSITION ANNUAL ASSESSMENT [facility] Start: 02-22-2012 Varicella vaccine (2 of 2 - 2-dose childhood series) Varicella vaccine (2 of 2 - 2-dose childhood series) [place] Start: 02-12-2012 Varicella (1 of 2 - 13+ 2-dose series) Varicella (1 of 2 - 13+ 2-dose series) [facility] Start: 02-12-2012 Varicella vaccination Varicella Vaccines (1 of 2 - 13+ 2-dose series) [facility] Start: 2011 Adult depression screening assessment DEPRESSION SCREENING [facility] Start: 2011 COVID-19 Vaccine (1) COVID-19 Vaccine (1) [facility] Start: 2011 Depression Monitoring Depression Monitoring [facility] Start: 2011 PEDS TO ADULT TRANSITION INITIAL DISCUSSION PEDS TO ADULT TRANSITION INITIAL DISCUSSION [facility] Start: 2010 HPV vaccine (1 - 2-dose series) HPV vaccine (1 - 2-dose series) [facility] Start: 2010 HPV Vaccines (1 - 2-dose series) HPV Vaccines (1 - 2-dose series) [facility] Start: 2010 Vaccination for human papillomavirus HPV Vaccine (1 - 2-dose series) [facility] Start: 2009 Diabetic foot examination [facility] Start: 2009 Diabetic retinal exam Diabetic retinal exam [facility] Work Phone: Start: 2009 MENINGOCOCCAL B: Consider based on risk (1 of 2 - Risk Bexsero 2-dose series) MENINGOCOCCAL B: Consider based on risk (1 of 2 - Risk Bexsero 2-dose series) [facility] Start: 2009 Preventive dental service Diabetes: Dental Exam [facility] Start: 02-12-2008 HPV VACCINE (1 - 2-dose series) HPV VACCINE (1 - 2-dose series) [facility] Start: 2006 Tetanus Diphtheria and Pertussis Vaccines (1 - Tdap) Tetanus Diphtheria and Pertussis Vaccines (1 - Tdap) [facility] Start: 2005 Pneumococcal 0-64 years Vaccine (1 - PCV) Pneumococcal 0-64 years Vaccine (1 - PCV) [facility] Start: 2005 Pneumococcal 0-64 years Vaccine (1 of 1 - PPSV23) Pneumococcal 0-64 years Vaccine (1 of 1 - PPSV23) [facility] Work Phone: Start: 2005 Pneumococcal 0-64 years Vaccine (1 of 2 - PPSV23) Pneumococcal 0-64 years Vaccine (1 of 2 - PPSV23) [facility] Start: 02-12-2004 COVID-19 VACCINE (#1) COVID-19 VACCINE (#1) [facility] Start: 02-12-2004 COVID-19 Vaccine (1) COVID-19 Vaccine (1) [facility] Start: 02-12-2000 MMR (1 of 1 - Standard series) MMR (1 of 1 - Standard series) [facility] Start: 02-12-2000 MMR Vaccines (1 of 1 - Standard series) MMR Vaccines (1 of 1 - Standard series) [facility] Start: 02-12-2000 Varicella vaccination Varicella Vaccines (1 of 2 - 2-dose childhood series) [facility] Start: 02-12-2000 Varicella vaccine (1 of 2 - 2-dose childhood series) Varicella vaccine (1 of 2 - 2-dose childhood series) [facility] Start: 1999 COVID-19 Vaccine (#1) COVID-19 Vaccine (#1) [facility] Start: 1999 HEPATITIS B (1 of 3 - 3-dose series) HEPATITIS B (1 of 3 - 3-dose series) [facility] Start: 1999 Hepatitis B Vaccine (1 of 3 - 3-dose series) Hepatitis B Vaccine (1 of 3 - 3-dose series) [facility] Start: 1999 Hepatitis B Vaccines (1 of 3 - 3-dose series) Hepatitis B Vaccines (1 of 3 - 3-dose series) [facility] Start: 1999 Hepatitis C screening Hepatitis C screen [facility] Work Phone: ALERE STREP A TEST (AG) ALERE ST REP A TEST (AG) Lab Routine Sore throat Ordered: 01/12/[address] [facility] Work Phone: Comment on above: Ordered: 01/12/2024 Antibody to lupus La protein measurement [facility] Antibody to Scl-70 measurement [facility] Antibody to SS-A measurement [facility] Bacteria identified in Urine by Culture URINE CULTURE Microbiology Routine Dysuria Ordered: 08/19/[address] [facility] Work Phone: Comment on above: Ordered: 08/19/2021 End: 08-29-2022 Bacteria identified in [facility]rine by Culture [facility] Work Phone: Comment on above: Once (Lab) for 1 Occurrences starting until 08/29/2022 End: 03-06-2024 Bacteria identified in Urine by Culture [facility] Work Phone: Comment on above: Once (Lab) for 1 Occurrences starting until 03/06/2024 Once for 1 Occurrenc es starting 03/06/2024 until 03/06/2024 End: 07-16-2024 Bacteria identified in Urine by Culture [facility] Work Phone: Comment on above: STAT (Lab) for 1 Occurrences starting until 07/16/2024 Once for 1 Occurrenc es starting 07/16/2024 until 07/16/2024 Bilirubin measurement, urine [facility] Centrome[employer] protein B Ab [Units/volume] in Serum [facility] Chromatin Ab [Units/ volume] in Serum or Plasma [facility] End: 01-29-2020 COVID-19 COVID-19 Lab Routine One Time for 1 Occurrences starting 01/29/2020 until 01/29/2020 [facility] on above: One Time for 1 Occurrences starting 01/07 until 01/29/2020 COVID-19 COVID-19 Lab STA T 01/29/2020 12:35 PM EST [facility] End: 10-03-2021 DHEA-S BLD DHEA-S BLD Lab Routine Irregular menstrual cycle 1 Occurrences starting 10/03/2020 until 10/03/2021 [facility] Comment on above: 1 Occurrences starting 10/03/2020 until 10/03/2021 DHEA-S BLD DHEA-S BLD Lab R outine Irregular menstrual cycle 10/03/2020 2:15 PM EDT [facility] DNA double strand Ab [Units/volume] in Serum [facility] Biophysical pr ofile panel US [facility] Biophysical pr ofile panel [facility] Full PFT Study With Bronchodilator Full PFT Study With Bronchodilator PFT Routine Chronic cough 09/05/2020 2:10 PM EDT [facility] Work Phone: FUNGAL SMEAR FUNGAL SMEAR Microbiology Routine Vaginal discharge 10/03/2020 1:55 PM EDT [facility] FUNGAL SMEAR FUNGAL SMEAR Microbiology Routine Acute vaginitis Ordered: 08/19/[address] [facility] Work Phone: Comment on above: Ordered: 08/19/2021 GC/CHLAMYDIA DNA DET [facility] Comment on above: Ordered: 11/15/2020 Hemoglobin [Presence] in Urine [facility] Julieth-1 extractable nuc lear Ab [Units/volume] in Serum [facility] Measurement of keton es in urine using dipstick [facility] Microscopic urinalysis [facility] MR Brain WO and W contrast IV [facility] Organism count, micr oscopic method [facility] Patient Education [facility] Work Phone: Patient referral [facility] Work Phone: PELVIC US WHI PELVIC US I An c Imaging Routine Irregular menstrual cycle Ordered: 10/03/2020 [facility] Comment on above: Ordered: 10/03/2020 pH of Urine [facility] End: 10-03-2021 Prolactin [Mass/volume] in Serum or Plasma PROLACTIN BLD Lab Routine Irregular menstrual cycle 1 Occurrences starting 10/03/2020 until 10/03/2021 [facility] Comment on above: 1 Occurrences starting 10/03/2020 until 10/03/2021 Prolactin [Mass/volu me] in Serum or Plasma PROLACTIN BLD Lab Routine Irregular menstrual cycle 10/03/2020 2:15 PM EDT [facility] RAPID BACT VAGINOSIS (AK) RAPID BACT VAGINOSIS (AK) Lab Routine Acute vaginitis Ordered: 08/19/[address] [facility] Work Phone: Comment on above: Ordered: 08/19/2021 [employer]IC[employer] antibody measurement [facility] [place]tt extractable nu clear Ab [Presence] in Serum [facility] Specific gravity of Urine [facility] End: 10-03-2021 TESTOSTERONE, FREE AND TOTAL TESTOSTERONE, FREE AND TOTAL Lab Routine Irregular menstrual cycle 1 Occurrences starting 10/03/2020 until 10/03/2021 [facility] Comment on above: 1 Occurrences starting 10/03/2020 until 10/03/2021 TESTOSTERONE, FREE AND TOTAL BHAVANI TOSTERONE, FREE AND TOTAL Lab Routine Irregular menstrual cycle 10/03/2020 2:15 PM EDT [facility] End: 10-03-2021 Thyrotropin [Units/volume] in Serum or Plasma TSH BLD Lab Routine Irregular menstrual cycle 1 Occurrences starting 10/03/2020 until 10/03/2021 [facility] Comment on above: 1 Occurrences starting 10/03/2020 until 10/03/2021 Thyrotropin [Units/v olume] in Serum or Plasma TSH BLD Lab Routine Irregular menstrual cycle 10/03/2020 2:15 PM EDT [facility] UA DIP, URINE (POC) UA DIP, URIN E (POC) Lab Routine Dysuria Ordered: 08/19/[address] [facility] Work Phone: Comment on above: Ordered: 08/19/2021 Urine culture [facility] Urine dipstick for glucose [facility] Urine dipstick for l eukocyte esterase [facility] Urine dipstick for nitrite [facility] Urine dipstick for protein [facility] Urine examination [facility] End: 03-06-2024 Urine Hold Cup Urine Hold Cup Lab Timed Once for 1 Occurrences starting 03/06/2024 until 03/06/2024 [facility] Comment on above: Once for 1 Occurrences starting 03/06/20 until 03/06/2024 Urine microscopy: ep ithelial cells [facility] Urine microscopy: red cells [facility] Urine test [facility] Urobilinogen [Presence] in Urine [facility] White blood cell count [facility] End: 04-18-2021 XR CERVICAL SPINE (2-3 VIEWS) [facility] Work Phone: Comment on above: 1 Occurrences starting 04/18/2021 until 04/18/2021 End: 01-17-2021 XR WRIST LEFT 3 [facility] Work Phone: Comment on above: Once for 1 Occurrences starting 01/18/20 21 until 01/17/2021 [facility] Immunizations Immunization Date Immunization Notes Care Provider Jarrod chavesemmanuelle 11-06-2021 Pneumococcal Conjuga te PCV20, Pf (Prevnar 20) Fifi Morales MD Work Phone: [facility] Payers Date Payer Category Payer Self-pay 2022 Medicaid [id number] 2022 Medicaid HMO [id number] 2020 Dental --Stand Alone DENTAL-MEDI CAID HMO [id number] 2020 Medicaid [id number] [id number]. [id number] 2020 Medicaid [id number]. 1.13.159.2. [id number] 2020 Private Health Insurance [id number] 1.2.840.112093.1.13.159.2. [id number] 2020 Private Health Insurance [id number] 1.2.840.848213.1.13.239.2. [id number] 2014 Private Health Insurance [id number] 1.2.840.704172.1.13.239.2. 7.3.057499.315 1999 Unknown [id number] 2.16.840.1.871591.3.579.2. 356 1999 Unknown [id number] 2.16.840.1.562718.3.579.2. 479 1999 Unknown [id number] 2.16.840.1.420639.3.579.2. 479 1999 Unknown [id number] 2.16.840.1.803702.3.579.2. 479 1999 Unknown [id number] 2.16.840.1.157576.3.579.2. 479 1999 Unknown [id number] 2.16.840.1.792861.3.579.2 479 1999 Unknown [id number] 2.16.840.1.913488.3.579.2. 479 1999 Unknown [id number] 2.16.840.1.877230.3.579.2 479 1999 Unknown [id number] 2.16.840.1.487560.3.579.2. 479 1999 Unknown [id number] 2.16.840.1.658088.3.579.2. 479 1999 Unknown [id number] 2.16.840.1.046017.3.579.2. 479 1999 Unknown [id number] 2.16.840.1.463637.3.579.2. 479 1999 Unknown [id number] 2.16.840.1.777541.3.579.2. 479 1999 Unknown [id number] 2.16.840.1.412970.3.579.2. 479 1999 Unknown [id number] 2.16.840.1.116819.3.579.2 1999 Unknown [id number] 2.16.840.1.145774.3.579.2 1999 Unknown [id number] 2.16.840.1.060998.3.579.2 1999 Unknown [id number] 2.16.840.1.697573.3.579.2 1999 Unknown [id number] 2.16.840.1.651887.3.579.2 1999 Unknown [id number] 2.16.840.1.585597.3.579. 1999 Unknown [id number] 2.16.840.1.106112.3.579. 1999 Unknown [id number] 2.16.840.1.348791.3.579. 1999 Unknown [id number] 2.16.840.1.624489.3.579.2 1999 Unknown [id number] 2.16.840.1.782689.3.579.2 1999 Unknown [id number] 2.16.840.1.917939.3.579.2 1999 Unknown [id number] 2.16.840.1.400844.3.579.2 1999 Unknown [id number] 2.16.840.1.402089.3.579.2 1999 Unknown [id number] 2.16.840.1.518494.3.579.2 1999 Unknown [id number] 2.16.840.1.764053.3.579.2 1999 Unknown [id number] 2.16.840.1.034030.3.579.2 1999 Unknown [id number] 2.16.840.1.577921.3.579.2. 479 Unknown [facility] Unknown [id number] 2.16.840.1.910141.3.579.2. 462 Unknown [id number] 2.16.840.1.016732.3.579.2. 462 Unknown [id number] 2..840.1.545407.3.579.2. 462 Unknown [id number] 2..840.1.396140.3.579.2. 462 Unknown [id number] 2.840.1.218250.3.579.2. 462 Unknown [id number] 2..840.1.148046.3.579.2. 462 Unknown [id number] 2.840.1.450407.3.579.2. 462 Unknown [id number] 2.840.1.347538.3.579.2. 462 Unknown [id number] 2.840.1.478550.3.579.2. 462 Unknown [id number] 2..840.1.779960.3.579.2. 462 Unknown [id number] 2..840.1.650076.3.579.2. 462 Unknown [id number] 2.840.1.569546.3.579.2. 462 Unknown [id number] 2.840.1.607818.3.579.2. 462 Unknown [id number] 2..840.1.488586.3.579.2. 462 Unknown [id number] 2.16.840.1.169920.3.579.2. 462 Unknown [id number] 2.16.840.1.134944.3.579.2. 462 Unknown [id number] 2.16.840.1.497057.3.579.2. 462 Unknown [id number] 2.16.840.1.981461.3.579.2. 462 Unknown [id number] 2.16.840.1.257746.3.579.2. 462 Unknown [id number] 2.16.840.1.261211.3.579.2. 462 Unknown [id number] 2.16.840.1.189965.3.579.2. 462 Unknown [id number] 2.16.840.1.451193.3.579.2. 462 Unknown [id number] 2.16.840.1.433525.3.579.2. 462 Unknown [id number] 2.16840.1.602333.3.579.2. 462 Unknown [id number] 2.16.840.1.659582.3.579.2. 462 Unknown [id number] 2.840.1.818699.3.579.2. 462 Unknown [id number] 2.16840.1.243285.3.579.2. 462 Unknown [id number] 2.840.1.044647.3.579.2. 462 Unknown [id number] 2.16.840.1.849142.3.579.2. 462 Unknown [id number] 2.16840.1.619447.3.579.2. 462 Unknown [id number] 2.16.840.1.165342.3.579.2. 462 Unknown [id number] 2.16.840.1.797915.3.579.2. 462 Unknown [id number] 2.16.840.1.798828.3.579.2. 462 Unknown [id number] 2.16.840.1.886031.3.579.2. 462 Unknown [id number] 2.16.840.1.379929.3.579.2. 462 Unknown [id number] 2.16.840.1.542852.3.579.2. 462 Unknown [id number] 2.16.840.1.607191.3.579.2. 462 Unknown [id number] 2.16.840.1.804834.3.579.2. 462 Unknown [id number] 2.16.840.1.672113.3.579.2. 462 Unknown [id number] 2.16840.1.206961.3.579.2. 462 Unknown [id number] 2.16.840.1.097900.3.579.2. 462 Unknown [id number] 2.840.1.087093.3.579.2. 462 Unknown [id number] 2.840.1.084125.3.579.2. 462 Unknown [id number] 2.840.1.096417.3.579.2. 462 Unknown [id number] 2.840.1.183652.3.579.2. 462 Unknown [id number] 2.840.1.937248.3.579.2. 462 Unknown [id number] 2.840.1.845752.3.579.2. 462 Unknown [id number] 2.840.1.010241.3.579.2. 462 Unknown [id number] 2.840.1.596284.3.579.2. 462 Unknown [id number] 2.840.1.682896.3.579.2. 462 Unknown [id number] 2.840.1.612659.3.579.2. 462 Unknown [id number] 2.16840.1.684859.3.579.2. 462 Unknown [id number] 2.16840.1.725463.3.579.2. 462 Unknown [id number] 2.840.1.635648.3.579.2. 462 Unknown [id number] 2.16.840.1.889001.3.579.2. 462 Unknown [id number] 2.16.840.1.207553.3.579.2. 462 Unknown [id number] 2.16.840.1.040729.3.579.2. 462 Unknown [id number] 2.16.840.1.115194.3.579.2. 462 Unknown [id number] 2.16.840.1.700452.3.579.2. 462 Unknown [id number] 2.16.840.1.849537.3.579.2. 462 Unknown [id number] 2.16.840.1.900709.3.579.2. 462 Social History Date Type Detail Facility Tobacco smoking stat [facility] Unknown if ever smoked [place], [place] Start: 1999 Sex Assigned At Not on file [place] Start: 04-23-2021 End: 10-30-2022 Exposure to SARS-CoV-2 (event) Not sure [place] Start: 09-22-2019 End: 01-03-2022 Tobacco smoking status WAIS Never smoker [facility] Start: 09-22-2019 End: 01-03-2022 Tobacco use and exposure Never used [place] Start: 11-27-2019 End: 11-14-2024 Alcohol intake Lifetime non-drinker (finding) [place] Start: 11-27-2019 End: 01-18-2022 History SDOH Alcohol Frequency 1 [place] Start: 1999 Sex Assigned At Female [employer] Work Phone: Exposure to SARS-CoV -2 (event) Yes [employer] Work Phone: Start: 08-29-2022 End: 11-14-2024 History of Social function [facility] Start: 08-29-2022 End: 11-14-2024 Alcohol Use Disorder Identification Test - Consumption [AUDIT-C] [facility] How often to you hav e a drink containing alcohol? Never [facility] How many standard dr inks containing alcohol do you have on a typical day? Patient does not drink [facility] Start: 10-15-2020 Gender identity Identifies as female gender (finding) [facility] Start: 10-15-2020 Sexual orientation Heterosexual (finding) [facility] Start: 12-03-2022 End: 06-26-2023 Tobacco smoking status NHIS Unknown if ever smoked [facility] Start: 07-29-2023 [facility] Start: 10-06-2021 End: 07-14-2022 Sex Female (finding) [facility] Start: 11-10-2023 Alcoholic beverage intake Ex-drinker (finding) [facility] Medical Equipment Procedure Code Equipment Code Equipment Origin al Text Equipment Identifier Dates [id number] Start: 05-01-2020 End: 06-09-2024 Test once a day. Type II DM, E11.9 [id number] Start: 05-01-2020 type II Dm, E11. 9, test once per day [id number] Start: 12-17-2020 Test once a day. Type II DM, E11.9 [id number] Start: 12-17-2020 TEST GLUCOSE ONC E DAILY [id number] Start: 10-30-2021 1 each by Other route daily. [id number] Start: 02-13-2022 End: 02-26-2023 Use as directed to check blood sugar [id number] Start: 10-21-2023 Pt to check gluc oses 4-7 times per day [id number] Start: 10-21-2023 Use as instructe d 4 times daily for CGM failure [id number] Start: 04-04-2024 Inject 1 each un eriberto the skin 4 times daily (before meals and nightly). Use as instructed [id number] Start: 06-09-2024 Pen Needle, Diab etic (Ultra-Thin Ii Ins Pen [place]) 29 gauge x 1/2 needle Start: 12-13-2023 Pen Needle, Diab etic (Ultra-Thin Ii Ins Pen [place]) 29 gauge x 1/2 needle Start: 08-18-2023 End: 08-18-2023 Pen Needle, Diab etic (Ultra-Thin Ii Ins Pen [place]) 29 gauge x 1/2 needle Start: 08-18-2023 End: 12-13-2023 Pen Needle, Diab etic (Ultra-Thin Ii Ins Pen [place]) 29 gauge x 1/2 needle Start: 12-13-2023 Pen Needle, Diab etic (Ultra-Thin Ii Ins Pen [place]) 29 gauge x 1/2 needle Start: 08-18-2023 End: 08-18-2023 Pen Needle, Diab etic (Ultra-Thin Ii Ins Pen [place]) 29 gauge x 1/2 needle Start: 08-18-2023 End: 12-13-2023 Goals Date Patient Goal Desired Activity /State Functional Status Date Assessment Result Facility 11-14-2024 Patient Health [facility] ionnaire 2 item (PHQ-2) [Reported] [facility] 11-14-2024 Little interest or p marco in doing things Several days 11/14/2024 1:29 PM EDT Mychart, Generic Several days [facility] 11-14-2024 Feeling down, depres sed, or hopeless More than half the days 11/14/2024 1:29 PM EDT Mychart, Generic More than half the days [facility] Mental Status Date Assessment Result Facility 06-21-2023 Cognitive function Voice/Name;Touch/Kajal moss [facility] Work Phone: 12-03-2022 Cognitive function Level Of Cons ciousness Awake;Alert;Appropriate [facility] Work Phone: Clinical Notes 03-20-2019 to 11-14-2024 [facility]/14/[facility] 3:54 PM EDTTelephone Encounter - Nehasarwat Sadler - 11/14/2024 3:54 PM EDTCMILADIS Rodriguez - 11/14/2024 2:30 PM EDT Note Date & Type Note Facility 11-14-2024 Telephone encounter Note Form atting of this note might be different from the original. Go Harris - [phone] JORDY requested Received - in provider box [facility] 11-14-2024 Miscellaneous Notes Formattin g of this note might be different from the original. Go Harris - [phone] JORDY requested Received - in provider box documented in this encounter [facility] 11-14-2024 History of Presen t illness Narrative Images from the original note were not included. [facility] [address] [place] [address] Dept: [phone] Dept Loc: [phone] Visit type: Established Patient Reason for Visit: Diabetes Mellitus and Follow-up Assessment and Plan 1. Type 2 diabetes mellitus with hyperglycemia, with long-term current use of insulin (HCC) - AMB POC HEMOGLOBIN A1C - Continuous Glucose Sensor (FreeStyle Shobha 3 Plus Sensor) misc; 1 each daily. Change sensor every 15 days, Starting Wed11/14/2024, Normal - insulin lispro (HumaLOG) 100 UNIT/ML pen injection; Multiple Dosages:Starting Wed11/14/2024, Until Wed11/14/2025 at 2359Inject 8 Units under the skin every morning (before breakfast) AND 6 Units daily (before lunch) AND 8 Units daily (before dinner)., Normal 2. Class 3 severe obesity with serious comorbidity and body mass index (BMI) of 40.0 to 44.9 in adult, unspecified obesity type 3. Type 2 diabetes mellitus with hyperlipidemia (HCC) (HCC) 4. Therapeutic drug monitoring Lab Results Component Value Date HGBA1C 7.4 (A) 11/14/2024 HGBA1C 6.2 (A) 06/09/2024 Lab Results Component Value Date EGFR 102 06/09/2024 TSH 2.32 06/09/2024 CHOLESTEROLT 165 06/09/2024 TRIG 134 11/08/2021 HDLCHOLESTER 45 (L) 06/09/2024 LDLCHOLESTER 101 (H) 06/09/2024 MICROALBCREA see below 11/08/2021 ALBUMINCREAT 3 06/09/2024 DM2 Diabetes is: worsening however GMI 6.7% Glycemic Target: less than 7% Recommendations: Dexcom G7/reciever/MSC Continue Lantus 10 units QAM Continue Humalog 8 before BF and dinner and decrease to 6 units before lunch Continue Metformin XR 500 mg bid denies SE *Taper off insulin as able -Hypo: Glucagon --Gvoke -Meter/Supplies: [employer] has supplies --> BG monitoring: DL 2-3 weeks; sooner if issues. --> Msg to staff to call/send home upload of notch grinder info * prior to GLP restart and gallbladder disease resolution Education: - Discussed A1C and BG goals - Encouraged lifestyle modifications of diet and exercise - Encouraged optimal foot care- follow with podiatry if needed - Encouraged following with ophthalmology - Patient counseled on the importance of taking medication as prescribed - Patient counseled on the effects of uncontrolled DM on other organ systems - Patient counseled on risk factors assoicated with diabetes - Patient counseled on detection and treatment of hypoglycemia - Patient instructed to call office if BG >250 or <70 consistently Obesity Body mass index is 44.76 kg/m . Wt Readings from Last 3 Encounters: 11/14/24 277 lb 4.8 oz (126 kg) 07/16/24 275 lb (125 kg) 06/09/24 271 lb 12.8 oz (123 kg) --> Continue to work on lifestyle changes: dietary habits; increasing activity as able, weight reduction --> Optimize DM agents to aid w/ the same such as GLP once GB disease improved HLP --LDL elevated 101 no current statin --taking OCP --Low CVD risk will continue to monitor [x] Records from outside facility/PCP office to be requested. JORDY [x] Scripts sent to pharmacy of choice. Follow up in about 3 months (around 02/13/2025). Diagnostic Data Reviewed Today: CGM AGP Reviewed: Yes Subjective HPI PCP: Keagan Shrestha MD Since AYDEN: 06/09/24 Having skin irritation with Dexcom wants to go back Shobha 3 plus has alec Plan for mark in a few weeks CPAP regularly-- Stress housing, vehicles etc-- Taking OCP 03/28/2024 Delivery; baby girl; ~36 weeks. Health baby. Not - formula exclusively Wt Readings from Last 4 Encounters: 11/14/24 277 lb 4.8 oz (126 kg) 07/16/24 275 lb (125 kg) 06/09/24 271 lb 12.8 oz (123 kg) 04/04/24 272 lb 3.2 oz (123 kg) Medication Cost Concerns: Denies Missed Medication Doses: Denies- only low if not eating Medication Side Effect: Denies Recent Steroid use: Denies Recent Weight Changes: Endorses Exercise Patterns: Gym, ADLs Dietary Patterns: 3x most days. Higher CHO choices Noted diet review from AYDEN: Bf saus, egg, toast make into sandwich Lunch works at [employer]-- Dinner protein, veg, starch Snack cheese stick, fruit Drink decaf coffee with SF creamer, water, diet pop Employment/Lifestyle Patterns/Schedule Alterations: Delivered health baby girl 03/28/2024 History of Type 2 Diabetes Age at Onset: 17 yo Circumstances surrounding dx: syncope at school--ED BG 500 Previous hospitalizations for DM: Denies Family hx DM: Endorses-Mother (DM2) Family hx thyroid disease/thyroid cancer: Denies *02/2024 cpeptide 4.52 w/ glucose 136 *02/2024 DAVID negative Current Medication Regimen: Lantus 10 units Humalog Metformin XR 500mg BID Previously Used DM Agents: Metformin: Gi upset Jardiance: recurrent UTI Trulicity: DC re: status Injection Sites/Rotation: rotates; arms only OTC Supplement Usage: Endorses-Vit D supp Glucose Monitoring CGM use: Yes-Dexcom G7 w/ notch grinder BG Monitoring: truemetrix Recent Hypoglycemia: Denies Hypoglycemic Treatment Plan: glucagon BG Trends: Trend Review: Complication History Retinopathy: Denies - Last Dilated Eye Exam: per pt; Manish Stiles Neuropathy: Denies - Last DMFE: 12/02/2023. 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 Subcentimeter nodules as described above which do not meet criteria for follow-up imaging. Review of Systems ROS was performed at the time of this encounter. Unless noted above in the HPI, the ROS is negative. Allergies Allergen Reactions Prednisone Other and Anaphylaxis Wound Dressing Adhesive Hives, Rash and Shortness of breath ER bandages Latex Swelling Cetirizine Swelling Metformin Nausea And Vomiting Microgestin Fe 1-20 [Norethin Yaya-Eth Estrad-Fe] Unknown and Other Norgestimate-Eth Estradiol Angioedema Other Other reaction(s): Anaphylaxis Outpatient Medications Prior to Visit Medication Sig Dispense Refill albuterol 108 (90 Base) MCG/ACT inhaler Inhale 2 puffs every 6 hours as needed for wheezing or shortness of breath. 18 g 3 Alcohol Swabs pads Use to cleanse skin prior to insulin injection or checking blood sugar Blood Glucose Monitoring Suppl (True Metrix Meter) w/Device kit As directed cholecalciferol (Vitamin D-3) 50 MCG (2000 UT) tablet Take 2,000 Units by mouth daily. Drug [place] Unilet Lancets 30G misc Pt to check glucoses 4-7 times per day glucagon (Gvoke HypoPen 2-Pack) 1 MG/0.2ML injection Inject 0.2 mL (1 mg) under the skin Once as needed for low blood sugar. 2 each 3 glucose 4 g chewable tablet Chew 4 tablets (16 g) Daily as needed for low blood sugar. 50 tablet 3 insulin pen needle 32G X 4 MM misc Inject 1 each under the skin 4 times daily (before meals and nightly). Use as instructed 100 each 11 Lantus SoloStar 100 UNIT/ML pen Inject 10 Units under the skin every morning. 9 mL 3 metFORMIN XR (Glucophage-XR) 500 MG 24 hr tablet Take 1 tablet (500 mg) by mouth 2 times daily. Do not crush, chew, or split. 180 tablet 3 NIFEdipine CC (Adalat CC) 30 MG 24 hr tablet Take 30 mg by mouth every morning (before breakfast). Do not crush, chew, or split. norethindrone (Deblitane) 0.35 MG tablet Take 1 tablet by mouth daily. sertraline (Zoloft) 50 MG tablet Take 50 mg by mouth daily. (Patient taking differently: Take 150 mg by mouth daily.) SUMAtriptan (Imitrex) 50 MG tablet Take 1 tablet (50 mg) by mouth Once as needed for migraine. May repeat after 2 hours. 9 tablet 3 True [employer] Blood Glucose Test test strip Use as instructed 4 times daily for CGM failure 100 each 11 Continuous Glucose Transfer Man (Dexcom G7 Transfer Man) device 1 each daily. 1 each 0 insulin lispro (HumaLOG) 100 UNIT/ML pen injection Inject 8 Units under the skin 3 times daily (with meals). 21.6 mL 3 No facility-administered medications prior to visit. Past Medical History: Diagnosis Date Acid reflux Anxiety Cant remember Asthma Cant remember Diabetes mellitus (HCC) February 2019 Headache Can't remember Sleep apnea Social History Tobacco Use Smoking status: Never Smokeless tobacco: Never Substance Use Topics Alcohol use: Never History reviewed. No pertinent surgical history. Family History Problem Relation Name Age of Onset Diabetes Mother Hypertension Mother COPD Mother Arthritis Father Cancer Maternal Grandmother Diabetes Maternal Grandfather Asthma Mother Jeannie mckenzie COPD Mother Jeannie mckenzie Depression Mother Jeannie mckenzie Diabetes Mother Jeannie mckenzie Hypertension Mother Jeannie mckenzie Objective BP 115/77 Pulse 84 Ht 5' 6 (1.676 m) Wt 277 lb 4.8 oz (126 kg) BMI 44.76 kg/m Physical Exam Vitals reviewed. HENT: Head: Normocephalic. Eyes: Pupils: Pupils are equal, round, and reactive to light. Cardiovascular: Rate and Rhythm: Normal rate and regular rhythm. Pulses: Normal pulses. Heart sounds: Normal heart sounds. Pulmonary: Effort: Pulmonary effort is normal. Breath sounds: Normal breath sounds. Musculoskeletal: General: No swelling. Normal range of motion. Cervical back: Normal range of motion. Skin: General: Skin is warm and dry. Neurological: Mental Status: She is alert and oriented to person, place, and time. Psychiatric: Mood and Affect: Mood normal. Behavior: Behavior normal. Data Reviewed and Summarized Labs: Lab Results Component Value Date HGBA1C 7.4 (A) 11/14/2024 Lab Results Component Value Date CHOL 158 11/08/2021 CHOL 159 05/23/2021 CHOL 166 05/28/2020 CHOLESTEROLT 165 06/09/2024 Lab Results Component Value Date TRIG 134 11/08/2021 TRIG 146 05/23/2021 TRIG 157 (A) 05/28/2020 TRIGLYCERIDE 101 06/09/2024 Lab Results Component Value Date HDL 40 11/08/2021 HDL 32 (L) 05/23/2021 HDL 39 (L) 05/28/2020 HDLCHOLESTER 45 (L) 06/09/2024 Lab Results Component Value Date LDL 91 11/08/2021 LDL 98 05/23/2021 LDL 96 05/28/2020 LDLCHOLESTER 101 (H) 06/09/2024 Lab Results Component Value Date EGFR 102 06/09/2024 EGFR 129 02/29/2024 EGFR 110 04/26/2023 Lab Results Component Value Date MICROALBCREA see below 11/08/2021 ALBUMINCREAT 3 06/09/2024 Lab Results Component Value Date TSH 2.32 06/09/2024 Lab Results Component Value Date [id number] 04/26/2023 I reviewed previous notes, test results, and face to face with the patient discussing the diagnosis and importance of compliance with the treatment plan as well as documenting on the day of the visit. I have addressed the above chronic illnesses including management, progression, and benefits and side effects of treatment. Portions of the information within this encounter were entered using an electronic dictation system. Best attempts were made to edit/proofread the information prior to note completion. Despite the review of information, some errors may remain. If there are questions related to the information contained within the note please contact the signing provider directly. Electronically signed by Kristen Hardwick MSN, POWERHOUSE MECHANIC APPRENTICE, ACNS-BC, [facility] Clinical Nurse Specialist and Certified Diabetes Care and Industrial Gas Fitter Helper on 11/16/2024 10:25 AM Electronically signed by MILADIS Noriega NEWS ASSISTANT documented in this encounter [facility] 08-30-2024 Telephone encounter Note Form atting of this note might be different from the original. Pt CPAP Machine was prescribed by Maciej Jaime MD, And DME order was fax to [facility]. [address] [place] [address] PHONE ~ [phone] FAX~ [phone] Please relay this message, if they call back again. Pt also No longer under our prescriber. [facility] 08-30-2024 Miscellaneous Notes Formattin g of this note might be different from the original. Pt CPAP Machine was prescribed by Maciej Jaime MD, And DME order was fax to [facility]. [address] [place] [address] PHONE ~ [phone] FAX~ [phone] Please relay this message, if they call back again. Pt also No longer under our prescriber. 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 Morales on 02/26/23 Practice: [facility] Chief Complaint/Reason for Call: Ayesha states that Patient is coming in for a new patient appointment on Wednesday and they need to find out what medical supply company provided the CPAP machine for sleep apnea as they need to get a compliance report. Ayesha states that the sleep study was ordered in October of 2020 and they need to know who the CPAP machine was prescribed by and which medical supply company this was sent to. Please advise. Best time of day caller can be reached: Any Patient advised that office/PCP has 24-48 business hours to return their call: No documented in this encounter [facility] 08-25-2024 Telephone encounter Note Form atting of this note might be different from the original. 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 Morales on 02/26/23 Practice: [facility] Chief Complaint/Reason for Call: Ayesha states that Patient is coming in for a new patient appointment on Wednesday and they need to find out what medical supply company provided the CPAP machine for sleep apnea as they need to get a compliance report. Ayesha states that the sleep study was ordered in October of 2020 and they need to know who the CPAP machine was prescribed by and which medical supply company this was sent to. Please advise. Best time of day caller can be reached: Any Patient advised that office/PCP has 24-48 business hours to return their call: No [facility] 07-26-[address] [facility] 07-26-2024 Progress note Note Date/Time July 26, 2024 8:24am [facility] [address] [place] [address] [place] [address] OFFICE VISIT Date of Service: 07/26/24 MR#: [id number] Acct: [id number] Name: FRED MELGOZA Rep #: [id number] : 2000 Provider: AMADO Tabor Age/Sex: 24/F [facility] [facility] Status: Signed Intake Vital Signs 07/11/24 08:43 07/26/24 07:47 Height 5 ft 6 in 5 ft 6 in Weight: 275 lb BMI 44.4 BP 134/90 H Blood Pressure Location Lt brachial Position Sitting Respiration 16 Pulse 94 Pulse Source Monitor Temp 97.6 F L Temp Source Temporal Pulse Oximetry (%) 99 Oxygen Delivery Method room air Intake Visit Reasons: ACUTE - ER FU Field Service Rep Required: No Is patient in pain?: No Allergies cetirizine (From Zyrtec) Allergy (Severe, Verified 07/11/24 08:42) Angioedema prednisone Allergy (Severe, Verified 07/11/24 08:42) Swelling adhesive tape Allergy (Intermediate, Verified 07/11/24 08:42) Rash latex Allergy (Intermediate, Verified 07/11/24 08:42) Swelling Medications ?Medication ?Instructions ?Recorded ?Confirmed ?Type ondansetron 4 mg disintegrating 4 mg PO TID PRN nausea and 12/26/22 07/26/24 Rx tablet vomiting #21 tabs flash glucose sensor (FreeStyle 09/28/23 07/26/24 His tormary Shobha 2 Sensor kit) pen needle, diabetic 29 gauge x #100 ea 12/13/2307/26 Rx 1/2 (Ultra-Thin II Insulin Pen [place]) albuterol sulfate 90 mcg/actuation 2 puff inhalation Q 4H PRN wheezing 02/07/24 07/26/24 Rx aerosol inhaler #8.5 grams fluticasone propionate 44 2 puff inhalation BID #10.6 grams 02/08/24 07/26/24 Rx mcg/actuation HFA aerosol inhaler lansoprazole 30 mg capsule,delayed 30 mg PO DAILY 1 mo [facility] #30 caps 02/23/24 07/26/24 Rx release insulin glargine 100 unit/mL (3 10 unit subcut QAM 07/26/24 History mL) subcutaneous pen (Lantus Solostar U-100 Insulin) insulin lispro 100 unit/mL 8 unit subcut TID 04/26/24 07/26/24 History subcutaneous pen (Humalog KwikPen (U-100) Insulin) metformin 500 mg tablet 500 mg PO BID 04/26/2407/26 History norethindrone (contraceptive) 0.35 0.35 mg PO QDAY #84 tabs 05/07/24 07/26/24 Rx mg tablet (Nadja) glycopyrrolate 2 mg tablet 2 mg PO DAILY #30 tabs 0411/3007/26/24 Rx nifedipine 30 mg tablet,extended 30 mg PO DAILY #90 ta bs 06/26/24 07/26/24 Rx release 24 hr sertraline 50 mg tablet (Zoloft) 50 mg PO DAILY #30 ta bs 07/11/24 07/26/24 Rx Nurse's Note: [facility] 07/16/24 having dysuria dx'd w/ uti. Was given atb's still has some burning but not as bad. Finished atb's on 07/19/24. Denies, urinary incontinence, urinary hesitancy or retention, odd color, odor, flank pain or pressure. Does c/o urinary frequency still. Denies vaginal discharge. [facility] Medical History Type 1 diabetes mellitus affecting in first trimester, antepartum Trauma during Vaginal delivery Rh negative status during Seasonal allergies Wears glasses Depression Anxiety Dietary restriction Gastric reflux Non-smoker Shortness of breath on exertion Leg cramps Migraine Cholelithiasis Diabetes GERD (gastroesophageal reflux disease) CPAP (continuous positive airway pressure) dependence Sleep apnea Asthma Surgical History History of esophagogastroduodenoscopy (EGD) No history of previous surgery Family History Mother Asthma Diabetes Hypertension High cholesterol Congestive heart failure Arthritis Anxiety and depression CVA (cerebral vascular accident) History of recurrent miscarriages Father Arthritis Social History adopted: No household members: spouse current occupational status: employed current occupation: [employer] pets and animals: No history of recent travel: No sexually active: Yes Smoking Status: Never smoker Electronic Cigarette Use: not used alcohol intake: never substance use type: does not use well-balanced diet: about half the time caffeine: Yes (2) Type: coffee and tea eating out: 1-3 times/week during the past year weight has: increased > 10 lbs frequency: does not exercise fred/moravian: Taoist seatbelt use: always do you feel safe at home: Yes additional social history: [place] HPI Details: FRED MELGOZA, is a 24 F who presents to the office today for ER f/u. She went to the ER for symptoms of dysuria and frequency last Wednesday. She states that they checked her urine and was told that she had an infection. She was placed on antibiotics (she wasn't sure what it was) for 3 days. She states that she completed the antibiotics a week ago. She states that she feels like it never full went away a she has some intermittent dysuria. She states that it isn't as bad as it was and again is not constant with every urination. She denies fevers, chills, abdominal pains, back pains, hematuria or the same frequency. She states that she does have frequency at the same time she states that she has some frequency regularly due to her diabetes. ROS Const Constitutional: No body ache, chills, excessive sweating, fatigue, fever(s), frequent falls, headache(s), snoring, weakness, sleep problems or change in appetite Eyes Eyes: No blurry vision, change in vision, eye pain or Light sensitivity ENT ENT: No abnormal hearing, ear or mastoid pain, tinnitus, nasal congestion, headache(s), neck pain or sore throat Resp Respiratory: No cough, shortness of breath, snoring or wheezing Cardio Cardiology: No chest pain at rest, chest pain with exertion, excessive sweating,shortness of breath, dyspnea on exertion, lightheadedness, orthopnea or palpitations Gastro GI: No abdominal pain, change in bowel habits, constipation, cramping, diarrhea,nausea/dyspepsia or vomiting Genitourinary-Female: Positive for burning urination, painful urination and urinary frequency; No urinary incontinence, abnormal vaginal bleeding or pelvic pain Musc Musculoskeletal: No abnormal gait, joint pain, back pain, limited range of motion, neck pain or numbness Skin Skin: No dry skin, redness, lesions, itchy eyes, rash or wounds Neuro Neurology: No abnormal gait, abnormal hearing, weakness, frequent falls, headache(s), memory loss or numbness Psych Psychiatric: No anxiety, No change in appetite, No depression, No memory loss and No Thoughts of harming yourself/Others Endo Endocrine: No cold intolerance, excessive sweating, fatigue, flushing, heat intolerance, increased thirst/drinking or increased hunger Aller/Imm Allergy/Immunologic: No itchy eyes, seasonal allergy symptoms, hives or wheezing Sergei/Lymp Hematologic/Lymphatic: No easy bleeding, easy bruising, enlarged lymph nodes or other Exam Const General: cooperative, comfortable, no acute distress, well developed, well groomed and not ill appearing Nutritional Appearance: obese Orientation: alert, awake and oriented x3 Limitations: mental status not altered Resp Effort & Inspection: normal respiratory effort and able to speak in complete sentences Cardio Rate: regular rate Pulses: radial pulses present bilaterally 2+ GI Inspection: obesity Palpation: soft and nontender General: bladder normal to palpation and No CVA tenderness Bimanual Exam- Vagina & Uterus: bladder normal to palpation Coding Level of Care Code Off vis,est,level 3 Diagnoses Dysuria R30.0 Assessment and Plan Assessment and Plan (1) Dysuria: Status: Acute Plan: Patient presents the office today for follow-up of recent urinary symptoms. Patient states that again she went to the emergency department on Mother's Day (10 days ago) for dysuria and frequency. Patient was given 3-day prescription of Keflex (was able to locate this on her MyChart). She states that she is continue to have some intermittent symptoms. She states that the discomfort shedoes have is not nearly as bad as it was and it is not all the time but just wanted to have it checked. No acute findings today in the office. No fevers, chills, abdominal pains or any CVA tenderness. At this time we are going to geta urinalysis (complete) as well as send this for culture since she is already had antibiotics. I did discuss that she will need to be in contact with the office and if she is not heard from us by the end of the day today about the urinalysis then she is to call tomorrow and then she may have to end up calling this weekend as we do not have any providers in the office on Wednesday to receive the culture results which can take 48 to 72 hours. If the urinalysis shows evidence of infection we will go and start her empirically and we will have to wait for the culture and explained that sometimes we have to change antibiotics based on findings. If she has any fevers, chills, hematuria, increase in frequency or other symptoms she is to notify the office sooner and should have evaluation if not here then in the emergency department. She can notify the office with any other questions or concerns in the meantime. I do want her to increase her fluid intake which she admits she is not great at. This note was generated with [employer] dictation software. It may contain incorrectwords, spelling, and punctuation that were not noted in checking the note beforesigning. Orders: Orders Culture, Urine Today R30.0 - Dysuria Urinalysis, Complete Today R30.0 - Dysuria 07/26/24 9318 <Electronically signed by González FISCHER> Date _ González FISCHER Cosigner Signature: Date (if applicable) CC: ~ [facility] Work Phone: [phone] Emergency department Note* Mukund Fonseca MD - 07/16/2024 12:33 PM EDT EMERGENCY DEPARTMENT ENCOUNTER Pt Name: Fred Melgoza Birthdate 2000 Date of evaluation: 07/16/2024 ED Provider: Mukund Fonseca MD CHIEF COMPLAINT Chief Complaint Patient presents with Female Dysuria HISTORY OF PRESENT ILLNESS (Location/Symptom, Timing/Onset, Context/Setting, Quality, Duration, Modifying Factors, Severity) Note limiting factors. I wore appropriate PPE for the entirety of this encounter. HPI Fred Melgoza is a 24 y.o. who presents to the emergency department with chief complaint of possibly having UTI. The patient has had dysuria and some frequency for the past few days. She denies any major urgency. She denies any blood in the urine. She denies any abnormal vaginal bleeding or discharge. She denies any fevers or chills. No current abdominal pain, vomiting or diarrhea. No flank pain described. She is a diabetic. She says her blood sugars have been fine. No current headaches orvisual complaints. No cough or sore throat. No chest pain or trouble breathing. She denies being . No rash or bruising. No numbness or weakness described. No other associated symptoms. Nursing Notes were reviewed. Limitations to history: None Outside historians: Significant other REVIEW OF SYSTEMS Review of Systems Constitutional: Negative for chills and fever. HENT: Negative. Eyes: Negative for visual disturbance. Respiratory: Negative for shortness of breath. Cardiovascular: Negative for chest pain. Gastrointestinal: Negative for abdominal pain, nausea and vomiting. Genitourinary: Positive for dysuria and frequency. Negative for flank pain, hematuria, vaginal bleeding and vaginal discharge. Musculoskeletal: Negative for arthralgias and back pain. Skin: Negative for color change and rash. Neurological: Negative for weakness and numbness. All other systems reviewed and are negative. Pertinent positives and negatives as per HPI. PAST MEDICAL HISTORY Past Medical History: Diagnosis Date Acid reflux Asthma Diabetes mellitus (HCC) Sleep apnea SURGICAL HISTORY History reviewed. No pertinent surgical history. CURRENT MEDICATIONS Previous Medications ALBUTEROL 108 (90 BASE) MCG/ACT INHALER Inhale 2 puffs every 6 hours as needed for wheezing or shortness of breath. ALCOHOL SWABS PADS Use to cleanse skin prior to insulin injection or checking blood sugar BLOOD GLUCOSE MONITORING SUPPL (TRUE METRIX METER) W/DEVICE KIT As directed CHOLECALCIFEROL (VITAMIN D-3) 50 MCG (2000 UT) TABLET Take 2,000 Units by mouth daily. CONTINUOUS GLUCOSE SITE DIRECTOR (DEXCOM G7 SITE DIRECTOR) DEVICE [facility] UNILET LANCETS 30G MISC Pt to check glucoses 4-7 times per day GLUCAGON (GVOKE HYPOPEN 2-PACK) 1 MG/0.2ML INJECTION Inject 0.2 mL (1 mg) under the skin Once as needed for low blood sugar. GLUCOSE 4 G CHEWABLE TABLET Chew 4 tablets (16 g) Daily as needed for low blood sugar. INSULIN LISPRO (HUMALOG) 100 UNIT/ML PEN INJECTION Inject 8 Units under the skin 3 times daily (with meals). INSULIN PEN NEEDLE 32G X 4 MM MISC Inject 1 each under the skin 4 times daily (before meals and nightly). Use as instructed LANTUS SOLOSTAR 100 UNIT/ML PEN Inject 10 Units under the skin every morning. METFORMIN XR (GLUCOPHAGE-XR) 500 MG 24 HR TABLET Take 1 tablet (500 mg) by mouth 2 times daily. Do not crush, chew, or split. NIFEDIPINE CC (ADALAT CC) 30 MG 24 HR TABLET Take 30 mg by mouth every morning (before breakfast). Do not crush, chew, or split. NORETHINDRONE (DEBLITANE) 0.35 MG TABLET Take 1 tablet by mouth daily. SERTRALINE (ZOLOFT) 50 MG TABLET Take 50 mg by mouth daily. SUMATRIPTAN (IMITREX) 50 MG TABLET Take 1 tablet (50 mg) by mouth Once as needed for migraine. May repeat after 2 hours. TRUE METRIX BLOOD GLUCOSE TEST TEST STRIP Use as instructed 4 times daily for CGM failure ALLERGIES Prednisone, Wound dressing adhesive, Latex, Cetirizine, Metformin, Microgestin fe 1-20 [norethin yaya-eth estrad-fe], Norgestimate-eth estradiol, and Other FAMILY HISTORY Family History Problem Relation Name Age of Onset Diabetes Mother Hypertension Mother COPD Mother Arthritis Father Cancer Maternal Grandmother Diabetes Maternal Grandfather SOCIAL HISTORY Social History Socioeconomic History Marital status: Tobacco Use Smoking status: Never Smokeless tobacco: Never Vaping Use Vaping status: Never Used Substance and Sexual Activity Alcohol use: Never Drug use: Never Sexual activity: Yes Partners: Male Social Drivers of Health Financial Resource Strain: Low Risk (12/09/2021) [facility] Overall Financial Resource Strain (CARDIA) Difficulty of Paying Living Expenses: Not very hard Food Insecurity: No Food Insecurity (12/09/2021) [facility] Hunger Vital Sign Worried About Running Out of Food in the Last Year: Never true Ran Out of Food in the Last Year: Never true Transportation Needs: No Transportation Needs (12/09/2021) Received from [facility] PRAPARE - Transportation Lack of Transportation (Medical): No Lack of Transportation (Non-Medical): No Physical Activity: Insufficiently Active (12/09/2021) [facility] Exercise Vital Sign Days of Exercise per Week: 2 days Minutes of Exercise per Session: 20 min Stress: No Stress Concern Present (12/09/2021) Received from [facility] Thai [place] of Occupational Health - Occupational Stress Questionnaire Feeling of Stress : Only a little Social Connections: Socially Integrated (12/09/2021) [facility] Social Connection and Isolation Panel [NHANES] Frequency of Communication with Friends and Family: Twice a week Frequency of Social Gatherings with Friends and Family: Twice a week Attends Christianity Services: More than 4 times per year Active Member of Clubs or Organizations: Yes Attends Club or Organization Meetings: More than 4 times per year Marital Status: Intimate Partner Violence: Not At Risk (12/09/2021) [facility] Humiliation, Afraid, Rape, and Kick questionnaire Fear of Current or Ex-Partner: No Emotionally Abused: No Physically Abused: No Sexually Abused: No SCREENINGS [place] [employer] Coma Scale Best Eye Response: Spontaneous Best Verbal Response: Oriented Best Motor Response: Follows commands Rohini Coma Scale Score: 15 PHYSICAL EXAM ED Triage Vitals [07/16/24 1238] Temp Heart Rate Resp BP 36.6 C (97.8 F) 97 16 117/72 SpO2 Temp Source Heart Rate Source Patient Position 96 % Oral Monitor -- BP Location FiO2 (%) -- -- Physical Exam Vitals and nursing note reviewed. Exam conducted with a supervisor bit and shank department present. Constitutional: General: She is not in acute distress. Appearance: Normal appearance. She is well-developed. She is not toxic-appearing. HENT: Head: Normocephalic and atraumatic. Right Ear: External ear normal. Left Ear: External ear normal. Nose: Nose normal. Mouth/Throat: Mouth: Mucous membranes are moist. Pharynx: Oropharynx is clear. Eyes: Extraocular Movements: Extraocular movements intact. Conjunctiva/sclera: Conjunctivae normal. Pupils: Pupils are equal, round, and reactive to light. Cardiovascular: Rate and Rhythm: Normal rate and regular rhythm. Heart sounds: No murmur heard. Pulmonary: Effort: Pulmonary effort is normal. No respiratory distress. Breath sounds: Normal breath sounds. Abdominal: General: Bowel sounds are normal. Palpations: Abdomen is soft. Tenderness: There is no abdominal tenderness. There is no right CVA tenderness, left CVA tenderness, guarding or rebound. Musculoskeletal: General: Normal range of motion. Cervical back: Normal range of motion and neck supple. Skin: General: Skin is warm and dry. Neurological: General: No focal deficit present. Mental Status: She is alert and oriented to person, place, and time. GCS: GCS eye subscore is 4. GCS verbal subscore is 5. GCS motor subscore is 6. Cranial Nerves: Cranial nerves 2-12 are intact. Sensory: Sensation is intact. Motor: Motor function is intact. Coordination: Coordination is intact. Psychiatric: Mood and Affect: Mood normal. DIAGNOSTIC RESULTS Interpretation per the Radiologist below, if available at the time of this note: No orders to display ED BEDSIDE ULTRASOUND: Performed by ED Physician - none LABS: Labs Reviewed COMPLETE URINALYSIS WITH REFLEX TO CULTURE - Abnormal Result Value Color, Urine Yellow Clarity, Urine Clear pH, Urine 6.0 Leukocytes, Urine 75 (*) Nitrite, Urine Negative Protein, Urine Negative Glucose, Urine Normal Bilirubin, Urine Negative Ketones, Urine Negative Urobilinogen, Urine Normal Blood, Urine Negative Volume, Urine 12 mL RBC, Urine Negative WBC, Urine 0-2 Squamous Epithelial, Urine 6-10 (*) Bacteria, Urine Negative SPECIFIC GRAVITY OF URINE (NUMERIC) 1.027 Narrative: A specimen with <=10 WBC is not consistent with inflammation. This specimen will not reflex to aurine culture. URINE CULTURE, ORDERABLE Narrative: The following orders were created for panel order Urine culture. Procedure Abnormality Status --------- ------ Urine culture[[id number]] Urine Hold Cup[[id number]] Please view results for these tests on the individual orders. URINE CULTURE HCG QUALITATIVE URINE HCG,URINE QUAL Negative Narrative: is the most common reason for HCG in urine, although choriocarcinoma, hydatidiform mole, and certain nontrophoblastic malignancies also result in detectable urinary HCG levels. Sensitivity = 20mIU/mL. URINE HOLD CUP All other labs were within normal range or not returned as of this dictation. EMERGENCY DEPARTMENT COURSE and DIFFERENTIAL DIAGNOSIS/MDM: Vitals: Vitals: 07/16/24 1238 BP: 117/72 Pulse: 97 Resp: 16 Temp: 36.6 C (97.8 F) TempSrc: Oral SpO2: 96% Weight: 125 kg (275 lb) Height: 1.676 m (5' 6) Diagnoses as of 07/16/24 1318 Dysuria The patient presented with chief complaint of dysuria. The differential diagnosis associated with this patient's presentation includes UTI, elevated bloodsugar, unlikely STD, unlikely PID, unlikely pyelonephritis, unlikely sepsis or bacteremia. Our workup consisted of ordering/reviewing: Urinalysis will be checked. Patient is in agreement with this plan. Medications cephalexin (Keflex) capsule 500 mg (has no administration in time range) REVAL: Based on her complaints of urinary frequency and dysuria, I told her that we would check for UTI. She otherwise appears well and has stable vital signs. I did not feel as though any other lab work was necessary or indicated. No imaging studies necessary either. Urine hCG negative. Urinalysis had elevated leukocyte esterase and a few squamous epithelial cells, but was otherwise unremarkable. Urineculture will be sent. I told her that even though her urine sample was only slightly abnormal, we will start on antibiotic for treatment of UTI. She was taking Azo cranberry [id number]. She should continue that. We will give her Keflex here and a prescription for home. Follow-up with her primary physician recommended. If anything changes she can notify us. She is comfortable with the plan. CRITICAL CARE TIME None CONSULTS: None PROCEDURES: Unless otherwise noted below, none FINAL IMPRESSION 1. Dysuria DISPOSITION Discharge 07/16/2024 01:17:58 PM PATIENT REFERRED TO: Keagan Shrestha MD [address] [facility] [address] Call DISCHARGE MEDICATIONS: New Prescriptions CEPHALEXIN (KEFLEX) 500 MG CAPSULE Take 1 capsule (500 mg) by mouth 4 times daily for 3 days. (Comment: Please note this report has been produced using speech recognition software and may contain errors related to that system including errors in grammar, punctuation, and spelling, as well as words and phrases that may be inappropriate. If there are any questions or concerns please feel freeto contact the dictating provider for clarification.) Mukund Fonseca MD (electronically signed) Emergency Medicine Provider Mukund Fonseca MD 07/16/24 1319 * Wilma Delacruz RN - 07/16/2024 12:33 PM EDT Patient to room 14 with c/o dysuria, and frequency for 3 days. V/S obtained, call light within reach. [id number] Emergency department Triage note* Wilma Delacruz RN - 07/16/2024 12:33 PM EDT Patient to room 14 with c/o dysuria, and frequency for 3 days. V/S obtained, call light within reach. [id number] Physician Emergency department Note* Mukund Fonseca MD - 07/16/2024 12:33 PM EDT EMERGENCY DEPARTMENT ENCOUNTER Pt Name: Fred Melgoza Birthdate 2000 Date of evaluation: 07/16/2024 ED Provider: Mukund Fonseca MD CHIEF COMPLAINT Chief Complaint Patient presents with Female Dysuria HISTORY OF PRESENT ILLNESS (Location/Symptom, Timing/Onset, Context/Setting, Quality, Duration, Modifying Factors, Severity) Note limiting factors. I wore appropriate PPE for the entirety of this encounter. HPI Fred Melgoza is a 24 y.o. who presents to the emergency department with chief complaint of possibly having UTI. The patient has had dysuria and some frequency for the past few days. She denies any major urgency. She denies any blood in the urine. She denies any abnormal vaginal bleeding or discharge. She denies any fevers or chills. No current abdominal pain, vomiting or diarrhea. No flank pain described. She is a diabetic. She says her blood sugars have been fine. No current headaches orvisual complaints. No cough or sore throat. No chest pain or trouble breathing. She denies being . No rash or bruising. No numbness or weakness described. No other associated symptoms. Nursing Notes were reviewed. Limitations to history: None Outside historians: Significant other REVIEW OF SYSTEMS Review of Systems Constitutional: Negative for chills and fever. HENT: Negative. Eyes: Negative for visual disturbance. Respiratory: Negative for shortness of breath. Cardiovascular: Negative for chest pain. Gastrointestinal: Negative for abdominal pain, nausea and vomiting. Genitourinary: Positive for dysuria and frequency. Negative for flank pain, hematuria, vaginal bleeding and vaginal discharge. Musculoskeletal: Negative for arthralgias and back pain. Skin: Negative for color change and rash. Neurological: Negative for weakness and numbness. All other systems reviewed and are negative. Pertinent positives and negatives as per HPI. PAST MEDICAL HISTORY Past Medical History: Diagnosis Date Acid reflux Asthma Diabetes mellitus (HCC) Sleep apnea SURGICAL HISTORY History reviewed. No pertinent surgical history. CURRENT MEDICATIONS Previous Medications ALBUTEROL 108 (90 BASE) MCG/ACT INHALER Inhale 2 puffs every 6 hours as needed for wheezing or shortness of breath. ALCOHOL SWABS PADS Use to cleanse skin prior to insulin injection or checking blood sugar BLOOD GLUCOSE MONITORING SUPPL (TRUE METRIX METER) W/DEVICE KIT As directed CHOLECALCIFEROL (VITAMIN D-3) 50 MCG (2000 UT) TABLET Take 2,000 Units by mouth daily. CONTINUOUS GLUCOSE SITE DIRECTOR (DEXCOM G7 SITE DIRECTOR) DEVICE [facility] UNILET LANCETS 30G MISC Pt to check glucoses 4-7 times per day GLUCAGON (GVOKE HYPOPEN 2-PACK) 1 MG/0.2ML INJECTION Inject 0.2 mL (1 mg) under the skin Once as needed for low blood sugar. GLUCOSE 4 G CHEWABLE TABLET Chew 4 tablets (16 g) Daily as needed for low blood sugar. INSULIN LISPRO (HUMALOG) 100 UNIT/ML PEN INJECTION Inject 8 Units under the skin 3 times daily (with meals). INSULIN PEN NEEDLE 32G X 4 MM MISC Inject 1 each under the skin 4 times daily (before meals and nightly). Use as instructed LANTUS SOLOSTAR 100 UNIT/ML PEN Inject 10 Units under the skin every morning. METFORMIN XR (GLUCOPHAGE-XR) 500 MG 24 HR TABLET Take 1 tablet (500 mg) by mouth 2 times daily. Do not crush, chew, or split. NIFEDIPINE CC (ADALAT CC) 30 MG 24 HR TABLET Take 30 mg by mouth every morning (before breakfast). Do not crush, chew, or split. NORETHINDRONE (DEBLITANE) 0.35 MG TABLET Take 1 tablet by mouth daily. SERTRALINE (ZOLOFT) 50 MG TABLET Take 50 mg by mouth daily. SUMATRIPTAN (IMITREX) 50 MG TABLET Take 1 tablet (50 mg) by mouth Once as needed for migraine. May repeat after 2 hours. TRUE METRIX BLOOD GLUCOSE TEST TEST STRIP Use as instructed 4 times daily for CGM failure ALLERGIES Prednisone, Wound dressing adhesive, Latex, Cetirizine, Metformin, Microgestin fe 1-20 [norethin yaya-eth estrad-fe], Norgestimate-eth estradiol, and Other FAMILY HISTORY Family History Problem Relation Name Age of Onset Diabetes Mother Hypertension Mother COPD Mother Arthritis Father Cancer Maternal Grandmother Diabetes Maternal Grandfather SOCIAL HISTORY Social History Socioeconomic History Marital status: Tobacco Use Smoking status: Never Smokeless tobacco: Never Vaping Use Vaping status: Never Used Substance and Sexual Activity Alcohol use: Never Drug use: Never Sexual activity: Yes Partners: Male Social Drivers of Health Financial Resource Strain: Low Risk (12/09/2021) Received from [facility] Overall Financial Resource Strain (CARDIA) Difficulty of Paying Living Expenses: Not very hard Food Insecurity: No Food Insecurity (12/09/2021) [facility] Hunger Vital Sign Worried About Running Out of Food in the Last Year: Never true Ran Out of Food in the Last Year: Never true Transportation Needs: No Transportation Needs (12/09/2021) Received from [facility] PRAPARE - Transportation Lack of Transportation (Medical): No Lack of Transportation (Non-Medical): No Physical Activity: Insufficiently Active (12/09/2021) [facility] Exercise Vital Sign Days of Exercise per Week: 2 days Minutes of Exercise per Session: 20 min Stress: No Stress Concern Present (12/09/2021) Received from [facility] Thai [place] of Occupational Health - Occupational Stress Questionnaire Feeling of Stress : Only a little Social Connections: Socially Integrated (12/09/2021) [facility] Social Connection and Isolation Panel [NHANES] Frequency of Communication with Friends and Family: Twice a week Frequency of Social Gatherings with Friends and Family: Twice a week Attends Christianity Services: More than 4 times per year Active Member of Clubs or Organizations: Yes Attends Club or Organization Meetings: More than 4 times per year Marital Status: Intimate Partner Violence: Not At Risk (12/09/2021) Received from [facility] [employer] [facility] [employer] [facility] Humiliation, Afraid, Rape, and Kick questionnaire Fear of Current or Ex-Partner: No Emotionally Abused: No Physically Abused: No Sexually Abused: No SCREENINGS Rohini Coma Scale Best Eye Response: Spontaneous Best Verbal Response: Oriented Best Motor Response: Follows commands Rohini Coma Scale Score: 15 PHYSICAL EXAM ED Triage Vitals [07/16/24 1238] Temp Heart Rate Resp BP 36.6 C (97.8 F) 97 16 117/72 SpO2 Temp Source Heart Rate Source Patient Position 96 % Oral Monitor -- BP Location FiO2 (%) -- -- Physical Exam Vitals and nursing note reviewed. Exam conducted with a supervisor bit and shank department present. Constitutional: General: She is not in acute distress. Appearance: Normal appearance. She is well-developed. She is not toxic-appearing. HENT: Head: Normocephalic and atraumatic. Right Ear: External ear normal. Left Ear: External ear normal. Nose: Nose normal. Mouth/Throat: Mouth: Mucous membranes are moist. Pharynx: Oropharynx is clear. Eyes: Extraocular Movements: Extraocular movements intact. Conjunctiva/sclera: Conjunctivae normal. Pupils: Pupils are equal, round, and reactive to light. Cardiovascular: Rate and Rhythm: Normal rate and regular rhythm. Heart sounds: No murmur heard. Pulmonary: Effort: Pulmonary effort is normal. No respiratory distress. Breath sounds: Normal breath sounds. Abdominal: General: Bowel sounds are normal. Palpations: Abdomen is soft. Tenderness: There is no abdominal tenderness. There is no right CVA tenderness, left CVA tenderness, guarding or rebound. Musculoskeletal: General: Normal range of motion. Cervical back: Normal range of motion and neck supple. Skin: General: Skin is warm and dry. Neurological: General: No focal deficit present. Mental Status: She is alert and oriented to person, place, and time. GCS: GCS eye subscore is 4. GCS verbal subscore is 5. GCS motor subscore is 6. Cranial Nerves: Cranial nerves 2-12 are intact. Sensory: Sensation is intact. Motor: Motor function is intact. Coordination: Coordination is intact. Psychiatric: Mood and Affect: Mood normal. DIAGNOSTIC RESULTS Interpretation per the Radiologist below, if available at the time of this note: No orders to display ED BEDSIDE ULTRASOUND: Performed by ED Physician - none LABS: Labs Reviewed COMPLETE URINALYSIS WITH REFLEX TO CULTURE - Abnormal Result Value Color, Urine Yellow Clarity, Urine Clear pH, Urine 6.0 Leukocytes, Urine 75 (*) Nitrite, Urine Negative Protein, Urine Negative Glucose, Urine Normal Bilirubin, Urine Negative Ketones, Urine Negative Urobilinogen, Urine Normal Blood, Urine Negative Volume, Urine 12 mL RBC, Urine Negative WBC, Urine 0-2 Squamous Epithelial, Urine 6-10 (*) Bacteria, Urine Negative SPECIFIC GRAVITY OF URINE (NUMERIC) 1.027 Narrative: A specimen with <=10 WBC is not consistent with inflammation. This specimen will not reflex to aurine culture. URINE CULTURE, ORDERABLE Narrative: The following orders were created for panel order Urine culture. Procedure Abnormality Status --------- ------ Urine culture[[id number]] Urine Hold Cup[[id number]] Please view results for these tests on the individual orders. URINE CULTURE HCG QUALITATIVE URINE HCG,URINE QUAL Negative Narrative: is the most common reason for HCG in urine, although choriocarcinoma, hydatidiform mole, and certain nontrophoblastic malignancies also result in detectable urinary HCG levels. Sensitivity = 20mIU/mL. URINE HOLD CUP All other labs were within normal range or not returned as of this dictation. EMERGENCY DEPARTMENT COURSE and DIFFERENTIAL DIAGNOSIS/MDM: Vitals: Vitals: 07/16/24 1238 BP: 117/72 Pulse: 97 Resp: 16 Temp: 36.6 C (97.8 F) TempSrc: Oral SpO2: 96% Weight: 125 kg (275 lb) Height: 1.676 m (5' 6) Diagnoses as of 07/16/24 1318 Dysuria The patient presented with chief complaint of dysuria. The differential diagnosis associated with this patient's presentation includes UTI, elevated bloodsugar, unlikely STD, unlikely PID, unlikely pyelonephritis, unlikely sepsis or bacteremia. Our workup consisted of ordering/reviewing: Urinalysis will be checked. Patient is in agreement with this plan. Medications cephalexin (Keflex) capsule 500 mg (has no administration in time range) REVAL: Based on her complaints of urinary frequency and dysuria, I told her that we would check for UTI. She otherwise appears well and has stable vital signs. I did not feel as though any other lab work was necessary or indicated. No imaging studies necessary either. Urine hCG negative. Urinalysis had elevated leukocyte esterase and a few squamous epithelial cells, but was otherwise unremarkable. Urineculture will be sent. I told her that even though her urine sample was only slightly abnormal, we will start on antibiotic for treatment of UTI. She was taking Azo cranberry [id number]. She should continue that. We will give her Keflex here and a prescription for home. Follow-up with her primary physician recommended. If anything changes she can notify us. She is comfortable with the plan. CRITICAL CARE TIME None CONSULTS: None PROCEDURES: Unless otherwise noted below, none FINAL IMPRESSION 1. Dysuria DISPOSITION Discharge 07/16/2024 01:17:58 PM PATIENT REFERRED TO: Keagan Shrestha MD [address] [facility] [address] Call DISCHARGE MEDICATIONS: New Prescriptions CEPHALEXIN (KEFLEX) 500 MG CAPSULE Take 1 capsule (500 mg) by mouth 4 times daily for 3 days. (Comment: Please note this report has been produced using speech recognition software and may contain errors related to that system including errors in grammar, punctuation, and spelling, as well as words and phrases that may be inappropriate. If there are any questions or concerns please feel freeto contact the dictating provider for clarification.) Mukund Fonseca MD (electronically signed) Emergency Medicine Provider Mukund Fonseca MD 07/16/24 1319 [facility] [id number] History of Present illness Narrative* John Hardwick, MILADIS - NEWS ASSISTANT - 06/09/2024 1:00 PM EDT Images from the original note were not included. [facility] [address] [place] [address] Dept: [phone] Dept Loc: [phone] Visit type: Established Patient Reason for Visit: Diabetes Mellitus and Follow-up Assessment and Plan 1. Type 2 diabetes mellitus with hyperglycemia, with long-term current use of insulin (HCC) - AMB POC HEMOGLOBIN A1C - insulin pen needle 32G X 4 MM misc; Inject 1 each under the skin 4 times daily (before meals and nightly). Use as instructed, Starting Wed06/09/2024, Normal 2. Class 3 severe obesity with serious comorbidity and body mass index (BMI) of 40.0 to 44.9 in adult, unspecified obesity type (HCC) 3. Thyromegaly 4. Therapeutic drug monitoring Lab Results Component Value Date HGBA1C 6.2 (A) 06/09/2024 HGBA1C 6.3 (H) 06/09/2024 Lab Results Component Value Date EGFR 102 06/09/2024 TSH 2.32 06/09/2024 CHOLESTEROLT 165 06/09/2024 TRIG 134 11/08/2021 HDLCHOLESTER 45 (L) 06/09/2024 LDLCHOLESTER 101 (H) 06/09/2024 MICROALBCREA see below 11/08/2021 ALBUMINCREAT 3 06/09/2024 DM2 Diabetes is: improving Glycemic Target: 7% Recommendations: Dexcom G7/reciever/MSC ( will restart sample notch grinder, her's went through laundry) Continue Lantus 10 units QAM Continue Humalog 8 tidac Continue Metformin XR 500 mg bid denies SE *Taper off insulin as able -Hypo: Glucagon --Gvoke -Meter/Supplies: True metrix has supplies --> BG monitoring: DL 2-3 weeks; sooner if issues. --> Msg to staff to call/send home upload of notch grinder info --> YAYA/ARB: defer until MACR --> Statin: Defer until lipids checked *BC prior to GLP restart and gallbladder disease resolution Education: - Notification Parameters - Glucagon emergency use instructions given Obesity Body mass index is 43.87 kg/m . Wt Readings from Last 3 Encounters: 06/09/24 271 lb 12.8 oz (123 kg) 04/04/24 272 lb 3.2 oz (123 kg) 12/02/23 266 lb (121 kg) --> Continue to work on lifestyle changes: dietary habits; increasing activity as able, weight reduction --> Optimize DM agents to aid w/ the same such as GLP once GB disease improved Thyromegaly No personal/family hx thyroid disease 11/2023 Thyroid function testing WNL W/ recent thyroiditis is a possibility --> Thyroid function testing, --> THUS 04/07/24 nodules noted does not meet criteria for FNA [x] Records from outside facility/PCP office to be requested. JORDY [x] Scripts sent to pharmacy of choice. Follow up in about 3 months (around 09/08/2024). Diagnostic Data Reviewed Today: CGM AGP Reviewed: Yes Subjective HPI PCP: Keagan Shrestha MD Since AYDEN: Dexcom notch grinder went through wash needs a new one Has had some lows usually later afternoon Plan for Mark after using CPAP regularly--still not using reg due to moved during renovations Stress housing, vehicles etc--new parents Taking OCP 03/28/2024 Delivery; baby girl; ~36 weeks. Health baby. Not - formula exclusively Wt Readings from Last 4 Encounters: 06/09/24 271 lb 12.8 oz (123 kg) 04/04/24 272 lb 3.2 oz (123 kg) 12/02/23 266 lb (121 kg) 04/26/23 242 lb 6.4 oz (110 kg) Medication Cost Concerns: Denies Missed Medication Doses: Denies- only low if not eating Medication Side Effect: Denies Recent Steroid use: Denies Recent Weight Changes: Endorses Exercise Patterns: Gym, ADLs Dietary Patterns: 3x most days. Higher CHO choices Noted diet review from AYDEN: Bf saus, egg, toast make into sandwich Lunch works at [employer]-- Dinner protein, veg, starch Snack cheese stick, fruit Drink decaf coffee with SF creamer, water, diet pop Employment/Lifestyle Patterns/Schedule Alterations: Delivered health baby girl 03/28/2024 History of Type 2 Diabetes Age at Onset: 17 yo Circumstances surrounding dx: syncope at school--ED BG 500 Previous hospitalizations for DM: Denies Family hx DM: Endorses-Mother (DM2) Family hx thyroid disease/thyroid cancer: Denies *02/2024 cpeptide 4.52 w/ glucose 136 *02/2024 DAVID negative Current Medication Regimen: Lantus 10 units Humalog Metformin XR 500mg BID Previously Used DM Agents: Metformin: Gi upset Jardiance: recurrent UTI Trulicity: DC re: status Injection Sites/Rotation: rotates; arms only OTC Supplement Usage: Endorses-Vit D supp Glucose Monitoring CGM use: Yes-Dexcom G7 w/ notch grinder BG Monitoring: truemetrix Recent Hypoglycemia: Denies Hypoglycemic Treatment Plan: glucagon BG Trends: Trend Review: Complication History Retinopathy: Denies - Last Dilated Eye Exam: 09/2023 per pt; Manish Hawkins Neuropathy: Denies - Last DMFE: 12/02/2023. 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 Unless noted above in the HPI, the ROS is negative. Allergies Allergen Reactions Prednisone Other and Anaphylaxis Latex Swelling Cetirizine Swelling Metformin Nausea And Vomiting Microgestin Fe 1-20 [Norethin Yaya-Eth Estrad-Fe] Unknown and Other Norgestimate-Eth Estradiol Angioedema Other Other reaction(s): Anaphylaxis Outpatient Medications Prior to Visit Medication Sig Dispense Refill albuterol 108 (90 Base) MCG/ACT inhaler Inhale 2 puffs every 6 hours as needed for wheezing or shortness of breath. 18 g 3 Alcohol Swabs pads Use to cleanse skin prior to insulin injection or checking blood sugar Blood Glucose Monitoring Suppl (True Metrix Meter) w/Device kit As directed cholecalciferol (Vitamin D-3) 50 MCG (2000 UT) tablet Take 2,000 Units by mouth daily. Continuous Glucose Transfer Man (Dexcom G7 Transfer Man) device Drug [place] Unilet Lancets 30G mis Pt to check glucoses 4-7 times per day glucagon (Gvoke HypoPen 2-Pack) 1 MG/0.2ML injection Inject 0.2 mL (1 mg) under the skin Once as needed for low blood sugar. 2 each 3 glucose 4 g chewable tablet Chew 4 tablets (16 g) Daily as needed for low blood sugar. 50 tablet 3 insulin lispro (HumaLOG) 100 UNIT/ML pen injection Inject 8 Units under the skin 3 times daily (with meals). 21.6 mL 3 Lantus SoloStar 100 UNIT/ML pen Inject 10 Units under the skin every morning. 9 mL 3 metFORMIN XR (Glucophage-XR) 500 MG 24 hr tablet Take 1 tablet (500 mg) by mouth 2 times daily. Do not crush, chew, or split. 180 tablet 3 NIFEdipine CC (Adalat CC) 30 MG 24 hr tablet Take 30 mg by mouth every morning (before breakfast). Do not crush, chew, or split. norethindrone (Deblitane) 0.35 MG tablet Take 1 tablet by mouth daily. True Metrix Blood Glucose Test test strip Use as instructed 4 times daily for CGM failure 100 each 11 Unifine Pentips 29G X 12MM misc SUMAtriptan (Imitrex) 50 MG tablet Take 1 tablet (50 mg) by mouth Once as needed for migraine. May repeat after 2 hours. 9 tablet 3 magnesium oxide (Mag-Ox) 400 (240 Mg) MG tablet Take 1 Tablet (400 mg) by mouth daily for 180 days VIT W/ FE BISG-FA PO Take by mouth. No facility-administered medications prior to visit. Past Medical History: Diagnosis Date Acid reflux Asthma Diabetes mellitus (HCC) Sleep apnea Social History Tobacco Use Smoking status: Never Smokeless tobacco: Never Substance Use Topics Alcohol use: Never History reviewed. No pertinent surgical history. Family History Problem Relation Name Age of Onset Diabetes Mother Hypertension Mother COPD Mother Arthritis Father Cancer Maternal Grandmother Diabetes Maternal Grandfather Objective BP 125/83 Pulse 68 Ht 5' 6 (1.676 m) Wt 271 lb 12.8 oz (123 kg) LMP 04/08/2023 (Exact Date) No BMI 43.87 kg/m Physical Exam Vitals reviewed. Constitutional: Appearance: Normal appearance. She is obese. HENT: Head: Normocephalic. Eyes: Pupils: Pupils are equal, round, and reactive to light. Neck: Thyroid: Thyromegaly present. Cardiovascular: Rate and Rhythm: Normal rate and regular rhythm. Pulses: Normal pulses. Heart sounds: Normal heart sounds. Pulmonary: Effort: Pulmonary effort is normal. Breath sounds: Normal breath sounds. Musculoskeletal: General: No swelling. Normal range of motion. Cervical back: Normal range of motion. Neurological: Mental Status: She is alert and oriented to person, place, and time. Psychiatric: Mood and Affect: Mood normal. Behavior: Behavior normal. Data Reviewed and Summarized Labs: Lab Results Component Value Date HGBA1C 6.2 (A) 06/09/2024 Results from last 7 days Lab Units 06/09/24 1215 CO2 mmol/L 25 BUN mg/dL 15 CREATININE mg/dL 0.82 EGFR mL/min/1.73m2 102 GLUCOSE mg/dL 94 CALCIUM mg/dL 9.0 ALBUMIN g/dL 4.5 Lab Results Component Value Date CHOL 158 11/08/2021 CHOL 159 05/23/2021 CHOL 166 05/28/2020 CHOLESTEROLT 165 06/09/2024 Lab Results Component Value Date TRIG 134 11/08/2021 TRIG 146 05/23/2021 TRIG 157 (A) 05/28/2020 TRIGLYCERIDE 101 06/09/2024 Lab Results Component Value Date HDL 40 11/08/2021 HDL 32 (L) 05/23/2021 HDL 39 (L) 05/28/2020 HDLCHOLESTER 45 (L) 06/09/2024 Lab Results Component Value Date LDL 91 11/08/2021 LDL 98 05/23/2021 LDL 96 05/28/2020 LDLCHOLESTER 101 (H) 06/09/2024 Lab Results Component Value Date EGFR 102 06/09/2024 EGFR 129 02/29/2024 EGFR 110 04/26/2023 Lab Results Component Value Date MICROALBCREA see below 11/08/2021 ALBUMINCREAT 3 06/09/2024 Lab Results Component Value Date TSH 2.32 06/09/2024 Lab Results Component Value Date [id number] 04/26/2023 Electronically signed by MILADIS Noriega Portions of the information within this encounter were entered using an electronic dictation system. Best attempts were made to edit/proofread the information prior to note completion. Despite the review of information, some errors may remain. If there are questions related to the information contained within the note please contact the signing physician directly. documented in this [facility]03-07-2025 Telephone encounter Note* Telephone Encounter - Asia Vasquez MA - 05/12/2024 9:17 AM EST Re-faxed CMN form to [facility]. [place] [id number] Miscellaneous Notes* Telephone Encounter - Asia Vasquez MA - 05/12/2024 9:17 AM EST Re-faxed CMN form to [facility]. * Telephone Encounter - Lisa Lara - 05/09/2024 11:20 AM EST Message released to Allison/YUAN as written. Faxed 05/09/24 10:56 Allison/YUAN's further questions if applicable: Will wait for fax Were all questions from office addressed or relayed to the patient from encounter: N/A * Telephone Encounter - Asia Vasquez MA - 05/09/2024 10:56 AM EST Faxed * Telephone Encounter - Jovanny Ordonez - 05/04/2024 11:03 AM EST Name of caller: Allison Contact phone number: [phone] option 5 then option 3 Relationship to Patient: [employer] Provider: EVANS Hardwick Practice: [facility] Endocrinology Chief Complaint/Reason for Call: Allison states she is faxing over a CMN that will need to be filled out, signed and dated along with a request for the most updated office notes. Allison is requesting that it be faxed back to [phone]. Please review. Best time of day caller can be reached: any Patient advised that office/PCP has 24-48 business hours to return their call: N/A [facility] [id number] Telephone encounter Note* Telephone Encounter - Lisa Lara - 05/09/2024 11:20 AM EST Message released to Allison/YUAN as written. Faxed 05/09/24 10:56 Allison/[facility]'s further questions if applicable: Will wait for fax Were all questions from office addressed or relayed to the patient from encounter: N/A [facility] [id number] Miscellaneous Notes* Telephone Encounter - Lisa Lara - 05/09/2024 11:20 AM EST Message released to Allison/[facility] as written. Faxed 05/09/24 10:56 Allison/[facility]'s further questions if applicable: Will wait for fax Were all questions from office addressed or relayed to the patient from encounter: N/A * Telephone Encounter - Asia Vasquez MA - 05/09/2024 10:56 AM EST Faxed * Telephone Encounter - Jovanny Ordonez - 05/04/2024 11:03 AM EST Name of caller: Allison Contact phone number: [phone] option 5 then option 3 Relationship to Patient: [employer] Provider: EVANS Hardwick Practice: [facility] Endocrinology Chief Complaint/Reason for Call: Allison states she is faxing over a CMN that will need to be filled out, signed and dated along with a request for the most updated office notes. Allison is requesting that it be faxed back to [phone]. Please review. Best time of day caller can be reached: any Patient advised that office/PCP has 24-48 business hours to return their call: N/A documented in this [facility]SBl[facility] [id number] Telephone encounter Note* Telephone Encounter - Asia Vasquez MA - 05/09/2024 10:56 AM EST Faxed [facility] [id number] Telephone encounter Note* Telephone Encounter - Jovanny Monique Mery - 05/04/2024 11:03 AM EST Name of caller: Allison Contact phone number: [phone] option 5 then option 3 Relationship to Patient: [employer] Provider: EVANS Hardwick Practice: [facility] Endocrinology Chief Complaint/Reason for Call: Allison states she is faxing over a CMN that will need to be filled out, signed and dated along with a request for the most updated office notes. Allison is requesting that it be faxed back to [phone]. Please review. Best time of day caller can be reached: any Patient advised that office/PCP has 24-48 business hours to return their call: N/A [facility] [id number] Miscellaneous Notes* Telephone Encounter - Jovanny Kayden Ordonez - 05/04/2024 11:03 AM EST Name of caller: Allison Contact phone number: [phone] option 5 then option 3 Relationship to Patient: [employer] Provider: EVANS Hardwick Practice: [facility] Endocrinology Chief Complaint/Reason for Call: Allison states she is faxing over a CMN that will need to be filled out, signed and dated along with a request for the most updated office notes. Allison is requesting that it be faxed back to [phone]. Please review. Best time of day caller can be reached: any Patient advised that office/PCP has 24-48 business hours to return their call: N/A documented in this [facility]02-19-2025 Evaluation note* Diagnosis Onset Date Resolution Status Admit Date Cholelithiasis acute April 082024 8:59am Depression acute May 03, 2024 10:26am Diabetes acute May 03, 2024 10:26am Routine Follow-Up noneact debra May 03, 2024 10:26am Depression acute May 30 11:33am Contact dermatitis noneactive May 30, 2024 11:33am Depression acute July 11, 2024 8:35am Dysuria acute July 26, 2024 7:43am [facility] Work Phone: [phone] 251-877802-04-2025 Telephone encounter Note* Telephone Encounter - Angie Enrique MA - 04/11/2024 9:[address] Do hui, from [facility], we are able to see record, patient seen on 04/09/2022, please review. [facility] [id number] Miscellaneous Notes* Telephone Encounter - Angie Enrique MA - 04/11/2024 9:[address] Do hui, from [facility], we are able to see record, patient seen on 04/09/2022, please review. * Telephone Encounter - Teri Reed LPN - 04/07/2024 4:45 PM EST Health Maintenance is showing that pt had JORDY done 12/02/23. That is not so that I can see. It was ordered by kristen Hardwick on that date. * Telephone Encounter - Alexus Ortega - 04/07/2024 1:53 PM EST Name of caller: Marin Contact phone number: [phone] Relationship to Patient: [facility] Provider: Myesha Dunbar APRN - EVANS Practice: [facility] ENDO Chief Complaint/Reason for Call: Marin called in regards to patient's eye exam report and states that while she ordered glasses from the vision center in 2022, she was not seen by their doctor. He states the patient was seen by Dr. Do Luna in 2022 with [facility]. Please advise. Best time of day caller can be reached: Any Patient advised that office/PCP has 24-48 business hours to return their call: Yes * Telephone Encounter - MILADSI Feldman - 12/02/2023 12:13 PM EDT Please obtain ophthalmology report [facility] [place] from 09/[address] [facility]01-31-2025 Telephone encounter Note* Telephone Encounter - Teri Reed LPN - 04/07/2024 4:45 PM EST Health Maintenance is showing that pt had JORDY done 12/02/23. That is not so that I can see. It was ordered by kristen Hardwick on that date. [facility] [id number] Miscellaneous Notes* Telephone Encounter - Teri Reed LPN - 04/07/2024 4:45 PM EST Health Maintenance is showing that pt had JORDY done 12/02/23. That is not so that I can see. It was ordered by kristen Hardwick on that date. * Telephone Encounter - Alexus Ortega - 04/07/2024 1:53 PM EST Name of caller: Marin Contact phone number: [phone] Relationship to Patient: [facility] Provider: Myesha Dunbar APRN - EVANS Practice: [facility] ENDO Chief Complaint/Reason for Call: Marin called in regards to patient's eye exam report and states that while she ordered glasses from the vision center in 2022, she was not seen by their doctor. He states the patient was seen by Dr. Do Luna in 2022 with [facility]. Please advise. Best time of day caller can be reached: Any Patient advised that office/PCP has 24-48 business hours to return their call: Yes * Telephone Encounter - MILADIS Feldman - 12/02/2023 12:13 PM EDT Please obtain ophthalmology report from [facility] from 09/2023 documented in this [facility]SBl[facility] [id number] Telephone encounter Note* Telephone Encounter - Alexus Ortega - 04/07/2024 1:53 PM EST Name of caller: Marin Contact phone number: [phone] Relationship to Patient: [facility] Provider: MILADIS William CNP Practice: [facility] ENDO Chief Complaint/Reason for Call: Marin called in regards to patient's eye exam report and states that while she ordered glasses from the vision center in 2022, she was not seen by their doctor. He states the patient was seen by Dr. Do Luna in 2022 with [facility]. Please advise. Best time of day caller can be reached: Any Patient advised that office/PCP has 24-48 business hours to return their call: Yes [facility] [id number] History of Present illness Narrative* MILADIS William CNP - 04/04/2024 7:00 AM EST Images from the original note were not included. [facility] [address] [place] [address] Dept: [phone] Dept Loc: [phone] Visit type: Established Patient Reason for Visit: Diabetes Mellitus and Follow-up Assessment and Plan 1. Type 2 diabetes mellitus with hyperglycemia, with long-term current use of insulin (HCC) - glucose 4 g chewable tablet; Chew 4 tablets (16 g) Daily as needed for low blood sugar., StartingWed04/04/2024, Until Wed04/04/2025 at 2359, Normal - glucagon (Gvoke HypoPen 2-Pack) 1 MG/0.2ML injection; Inject 0.2 mL (1 mg) under the skin Once asneeded for low blood sugar., Starting Wed04/04/2024, Normal - True Metrix Blood Glucose Test test strip; Use as instructed 4 times daily for CGM failure, Normal - metFORMIN XR (Glucophage-XR) 500 MG 24 hr tablet; Take 1 tablet (500 mg) by mouth 2 times daily. Do not crush, chew, or split., Starting Wed04/04/2024, Until Wed04/04/2025, Normal - insulin lispro (HumaLOG) 100 UNIT/ML pen injection; Inject 8 Units under the skin 3 times daily (with meals)., Starting Wed04/04/2024, Until Wed04/04/2025, Normal - Lantus SoloStar 100 UNIT/ML pen; Inject 10 Units under the skin every morning., Starting Wed04/04/2024, Until Wed04/04/2025, Normal - Microalbumin / creatinine urine ratio - Lipid panel - Hemoglobin A1c - Comprehensive metabolic panel - TSH - T4, free 2. Obesity (BMI 30-39.9) - TSH - T4, free 3. Thyromegaly - US thyroid Lab Results Component Value Date HGBA1C 6.9 (A) 11/10/2023 HGBA1C 6.2 (A) 02/26/2023 Lab Results Component Value Date EGFR 129 02/29/2024 TSH 1.53 04/26/2023 TRIG 134 11/08/2021 MICROALBCREA see below 11/08/2021 DM2 Diabetes is: improving Glycemic Target: 7% Recommendations: Lantus 11 units bid--> 10 units QAM Humalog 12/16/16--> 8 tidac Metformin XR 500mg HS--> 500 bid *Taper up Metformin XR as tolerated *Taper off insulin as able -Hypo: Glucagon sent today -Meter/Supplies: rx resent --> Labs to be done fasting prior to next visit; discussed holding supplements 5 days prior. Prior to next OV --> BG monitoring: DD 3 weeks; sooner if issues. --> Msg to staff to call/send home upload of notch grinder info --> YAYA/ARB: Defer until UACR screened re: normal BP --> Statin: Defer until lipids checked *BC prior to GLP restart and gallbladder disease resolution Education: - Notification Parameters - Glucagon emergency use instructions given via AVS Obesity Body mass index is 43.93 kg/m . Wt Readings from Last 3 Encounters: 04/04/24 272 lb 3.2 oz (123 kg) 12/02/23 266 lb (121 kg) 04/26/23 242 lb 6.4 oz (110 kg) --> Continue to work on lifestyle changes: dietary habits; increasing activity as able, weight reduction --> Optimize DM agents to aid w/ the same such as GLP once GB disease improved Thyromegaly No personal/family hx thyroid disease 11/2023 Thyroid function testing WNL W/ recent thyroiditis is a possibility --> Thyroid function testing, THUS [x] Records from outside facility/PCP office to be requested. JORDY [x] Scripts sent to pharmacy of choice. No follow-ups on file. Diagnostic Data Reviewed Today: CGM AGP Reviewed: Yes Subjective HPI PCP: Keagan Shrestha MD Since AYDEN: New to me; [facility] 11/2023 w/ Kristen Roy Scheduled acute visit w/ me today re: recent delivery 02/2024 LD: false labor 03/28/2024 Delivery; baby girl; ~36 weeks. Health baby. Not - formula exclusively No on control Medication Cost Concerns: Denies Missed Medication Doses: Endorses- x1 HS lantus held re: low BG at home Medication Side Effect: Denies Recent Steroid use: Denies Recent Weight Changes: Endorses- 272 today Exercise Patterns: Gym, ADLs Dietary Patterns: 3x most days. Higher CHO choices Noted diet review from [facility]: Bf saus, egg, toast make into sandwich Lunch works at [employer]-- Dinner protein, veg, starch Snack cheese stick, fruit Drink decaf coffee with SF creamer, water, diet pop Employment/Lifestyle Patterns/Schedule Alterations: Delivered health baby girl 03/28/2024 History of Type 2 Diabetes Age at Onset: 17 yo Circumstances surrounding dx: syncope at school--ED BG 500 Previous hospitalizations for DM: Denies Family hx DM: Endorses-Mother (DM2) Family hx thyroid disease/thyroid cancer: Denies *02/2024 cpeptide 4.52 w/ glucose 136 *02/2024 DAVID negative Current Medication Regimen: Lantus 11 units bid Humalog 12/16/16 Metformin XR 500mg HS Previously Used DM Agents: Metformin: Gi upset Jardiance: recurrent UTI Trulicity: DC re: status Injection Sites/Rotation: rotates; arms only OTC Supplement Usage: Endorses-, magnesium Glucose Monitoring CGM use: Yes-Dexcom G7 w/ notch grinder BG Monitoring: truemetrix Recent Hypoglycemia: Endorses - few various times since homegoing; significant hypo while IP for delivery Hypoglycemic Treatment Plan: glucagon sent today BG Trends: 92% TIR; few lows Trend Review: Complication History Retinopathy: Denies - Last Dilated Eye Exam: 2023 per pt; Manish Hawkins Neuropathy: Denies - Last DMFE: 12/02/2023. 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 Unless noted above in the HPI, the ROS is negative. Allergies Allergen Reactions Prednisone Other and Anaphylaxis Latex Swelling Cetirizine Swelling Metformin Nausea And Vomiting Microgestin Fe 1-20 [Norethin Yaya-Eth Estrad-Fe] Unknown and Other Norgestimate-Eth Estradiol Angioedema Other Other reaction(s): Anaphylaxis Outpatient Medications Prior to Visit Medication Sig Dispense Refill albuterol 108 (90 Base) MCG/ACT inhaler Inhale 2 puffs every 6 hours as needed for wheezing or shortness of breath. 18 g 3 Alcohol Swabs pads Use to cleanse skin prior to insulin injection or checking blood sugar Blood Glucose Monitoring Suppl (True Metrix Meter) w/Device kit As directed Continuous Glucose Transfer Man (Dexcom G7 Transfer Man) device Drug [place] Unilet Lancets 30G misc Pt to check glucoses 4-7 times per day magnesium oxide (Mag-Ox) 400 (240 Mg) MG tablet Take 1 Tablet (400 mg) by mouth daily for 180 days NIFEdipine CC (Adalat CC) 30 MG 24 hr tablet Take 30 mg by mouth every morning (before breakfast). Do not crush, chew, or split. VIT W/ FE BISG-FA PO Take by mouth. insulin lispro (HumaLOG) 100 UNIT/ML pen injection Inject 15-30 Units under the skin in the morningand 15-30 Units at noon and 15-30 Units in the evening. Inject 20 units with bf, for lunch 22 unitsand for dinner 24 units . (Patient taking differently: Inject under the skin 3 times a day. 12/16/16) Lantus SoloStar 100 UNIT/ML pen 11 Units 2 times daily. Inject 37 before bedtime True Metrix Blood Glucose Test test strip Use as directed to check blood sugar, 4-7 times a day. WHAT TYPE OF METER DO YOU HAVE? SUMAtriptan (Imitrex) 50 MG tablet Take 1 tablet (50 mg) by mouth Once as needed for migraine. May repeat after 2 hours. 9 tablet 3 Unifine Pentips 29G X 12MM misc use 1 new pen tip with each injection. (Patient not taking: Reported on 04/04/2024) aspirin 81 MG EC tablet 81 mg po daily glycopyrrolate (Robinul) 2 MG tablet Take 1 tablet (2 mg) by mouth daily. (Patient not taking: Reported on 04/04/2024) 90 tablet 0 metFORMIN XR (Glucophage-XR) 500 MG 24 hr tablet Take 500 mg by mouth with evening meal. Do not crush, chew, or split. No facility-administered medications prior to visit. Past Medical History: Diagnosis Date Acid reflux Asthma Diabetes mellitus (HCC) Sleep apnea Social History Tobacco Use Smoking status: Never Smokeless tobacco: Never Substance Use Topics Alcohol use: Never History reviewed. No pertinent surgical history. Family History Problem Relation Name Age of Onset Diabetes Mother Hypertension Mother COPD Mother Arthritis Father Cancer Maternal Grandmother Diabetes Maternal Grandfather Objective BP 119/79 Pulse 88 Ht 5' 6 (1.676 m) Wt 272 lb 3.2 oz (123 kg) LMP 04/08/2023 (Exact Date)Comment: Delivered 03/28/2024 No BMI 43.93 kg/m Physical Exam Vitals reviewed. Constitutional: General: She is not in acute distress. Appearance: Normal appearance. She is obese. HENT: Head: Normocephalic. Neck: Thyroid: Thyromegaly present. No thyroid tenderness. Cardiovascular: Rate and Rhythm: Normal rate and regular rhythm. Comments: Trace LE edema Pulmonary: Effort: Pulmonary effort is normal. No respiratory distress. Neurological: Mental Status: She is alert. Mental status is at baseline. Psychiatric: Mood and Affect: Mood normal. Judgment: Judgment normal. Data Reviewed and Summarized Labs: Lab Results Component Value Date HGBA1C 6.9 (A) 11/10/2023 Lab Results Component Value Date CHOL 158 11/08/2021 CHOL 159 05/23/2021 CHOL 166 05/28/2020 Lab Results Component Value Date TRIG 134 11/08/2021 TRIG 146 05/23/2021 TRIG 157 (A) 05/28/2020 Lab Results Component Value Date HDL 40 11/08/2021 HDL 32 (L) 05/23/2021 HDL 39 (L) 05/28/2020 Lab Results Component Value Date LDL 91 11/08/2021 LDL 98 05/23/2021 LDL 96 05/28/2020 Lab Results Component Value Date EGFR 129 02/29/2024 EGFR 110 04/26/2023 EGFR >90.0 01/18/2022 Lab Results Component Value Date MICROALBCREA see below 11/08/2021 Lab Results Component Value Date TSH 1.53 04/26/2023 Lab Results Component Value Date [id number] 04/26/2023 Electronically signed by MILADIS Joseph CNP Portions of the information within this encounter were entered using an electronic dictation system. Best attempts were made to edit/proofread the information prior to note completion. Despite the review of information, some errors may remain. If there are questions related to the information contained within the note please contact the signing physician directly. documented [facility] this [facility]01-28-2025 Instructions* Patient Instructions* MILADIS William CNP - 04/04/2024 7:00 AM EST *Please arrive 15 minutes prior to your scheduled appointment to ensure we have adequate time together at each visit to address all your health needs *It is recommended that you schedule your follow up appointments well in advance as the schedule fills up quickly *Bring your glucometer, blood sugar logs or CGM if being seen for diabetic care to ensure your trends can be thoroughly evaluated *Ordered labs should be done at least a week prior to your next scheduled appointment, fasting unless instructed otherwise *Due to possible lab interference, please hold any biotin-containing supplements including multivitamins or other over the counter supplements for at least 5 days prior to your labs being done. *Should you have any questions or concerns regarding your plan of ekta, please send me a message via [employer] or call [phone] so we can address your needs *Please notify at appointments of any refill needs. Should you require refills prior to your next appointment, please notify the office at least a week prior to your last dose to allow adequate time for review and authorization if required. To Do List: Send trends in 3 weeks - Test your blood sugar 4 times daily via glucometer (or by continuous glucose monitor) and send message/readings to office in 3 weeks for review. Sooner if issues arise. - Your A1c goal is 7% - Work on lifestyle modifications of diet and exercise to assist with improving diabetic control - Check your feet daily for optimal foot care- follow with podiatry if needed - Continue following with ophthalmology every year for your dilated eye exam - Please take your medication as prescribed. If you encounter issues with side effects, glucose control, or cost please let me know - Uncontrolled diabetes has effects on multiple organ systems. Keeping your trends at goal and withlimited variability will help to reduce your risk for future complications such as heart disease, chronic kidney disease, nerve damage (neuropathy), and other problems with your feet, oral health, vision, hearing, and mental health. - Be mindful of symptoms of both hypoglycemia (<70) and hyperglycemia (>250) and notify me ifyou are seeing trends outside these parameters consistently so we can adjust your plan of care. documented in this [facility]01-24-2025 [facility]01-20-2025 Evaluation note* Diagnosis Onset Date Resolution Status Admit Date Abdominal pain acute March 272024 4:55pm Abnormal biliary HIDA scan acute March 27, 2024 4:55pm Cholecystectomy planned acute J anuary 2024 4:55pm Cholelithiasis acute March 272024 4:55pm Depression acute March 27, 2024 4:55pm GERD (gastroesophageal reflu x disease) acute March 27 4:55pm Hx of recurrent urinary trac t infection acute March 27 4:55pm Maternal varicella, non-immune acute March 27, 2024 4:55pm Morbid obesity with BMI of 40.0-44.9, adult acute March 27 4:55pm Nausea & vomiting acute March 27, 2024 4:55pm Obstructive sleep apnea acute J an2024 4:55pm Bloating symptom resolved March 27, 2024 4:55pm Encounter for induction of labor resolved March 27 4:55pm Headache resolved March 27, 2024 4:55pm resolved March 27, 2024 4:55pm Supervision of high-risk resolved March 27 4:55pm Two vessel umbilical cord in [place] , antepartum resolved March 27 4:55pm UTI (urinary tract infection) resolv ed March 27, 2024 4:55pm Rh negative status during inactive March 27 4:55pm Trauma during inactive 2024 4:55pm Type 1 diabetes mellitus affecting in first trimester, antepartum inactive March 272024 4:55pm Vaginal delivery inactive March 27, 2024 4:55pm Cholelithiasis acute April 082024 8:59am Depression acute May 03, 2024 10:26am Diabetes acute May 03, 2024 10:26am Routine Follow-Up noneact debra May 03, 2024 10:26am Depression acute May 30 11:33am Contact dermatitis noneactive May 30, 2024 11:33am Depression acute July 11, 2024 8:35am Dysuria acute July 26, 2024 7:43am [facility] Work Phone: [phone] 173-207112-30-2024 Hospital Discharge instructions* Discharge Instructions* Maeve Parsons MD - 03/06/2024 9:16 PM EST Follow up appointment with your doctor/casting operator helper - Keep next scheduled appointment Activity - Normal Activity Call your doctor/casting operator helper if you have: - leaking fluid - vaginal bleeding - regular contractions: More than 6 contractions in one hour - decreased movement - worsening abdominal (belly) pain - headache, blurry vision, increased swelling, upper abdominal pain If you are going home with contractions that are uncomfortable/painful- we recommend these coping strategies: rhythmic breathing, hydrotherapy, imagery or visualization, gentle massage, walking and changing your position. Treatment Verification: Fred Melgoza was assessed on Labor and Delivery for a related visit on 03/06/24 . Maeve Parsons MD [facility] documented in this [facility]12-30-2024 History of Present illness Narrative* Maeve Parsons MD - 03/06/2024 6:52 PM EST Department of Obstetrics and Gynecology Labor and Delivery Triage Note CHIEF COMPLAINT: Abdominal Pain HISTORY OF PRESENT ILLNESS: The patient is a 24 y.o. 33w4d. OB History 1 Para Term AB Living SAB IAB Ectopic Multiple Live Births Patient presents with a chief complaint as above. Having abdominal pain all over her belly described as tightening. Q10 minutes. Severe enough to make her cry. Also having stabbing pain to the middle of her back. Big gush of fluid around 6pm. Denies DFM/VB Estimated Due Date: Estimated Date of Delivery: 04/20/24 PAST MEDICAL HISTORY: Past Medical History: Diagnosis Date Acid reflux Asthma Diabetes mellitus (HCC) Sleep apnea PAST SURGICAL HISTORY: History reviewed. No pertinent surgical history. SOCIAL HISTORY: reports that she has never smoked. She has never used smokeless tobacco. She reports that she does not drink alcohol and does not use drugs. MEDICATIONS: Prior to Admission medications Medication Sig Start Date End Date Taking? Authorizing Provider albuterol 108 (90 Base) MCG/ACT inhaler Inhale 2 puffs every 6 hours as needed for wheezing or shortness of breath. 02/02/23 Yes Fifi Morales MD aspirin 81 MG EC tablet 81 mg po daily 10/21/23 Yes Historical Provider, glycopyrrolate (Robinul) 2 MG tablet Take 1 tablet (2 mg) by mouth daily. 05/14/23 Yes Fifi Morales MD insulin lispro (HumaLOG) 100 UNIT/ML pen injection Inject 15-30 Units under the skin in the morningand 15-30 Units at noon and 15-30 Units in the evening. Inject 20 units with bf, for lunch 22 unitsand for dinner 24 units . 11/10/23 04/20/24 Yes Historical Provider, Lantus SoloStar 100 UNIT/ML pen Inject 37 before bedtime 11/23/23 Yes Historical Provider, magnesium oxide (Mag-Ox) 400 (240 Mg) MG tablet Take 1 Tablet (400 mg) by mouth daily for 180 days Yes Historical Provider, VIT W/ FE BISG-FA PO Take by mouth. Yes Historical Provider, SUMAtriptan (Imitrex) 50 MG tablet Take 1 tablet (50 mg) by mouth Once as needed for migraine. May repeat after 2 hours. 12/10/22 12/10/23 Fifi Morales MD Unifine Pentips 29G X 12MM misc use 1 new pen tip with each injection. Patient not taking: Reported on 03/06/2024 11/02/23 Historical Provider, CARE: Complicated by: DM on humalog and lantus, Asthma, Gallstones REVIEW OF SYSTEMS: A comprehensive review of systems was negative. APPEARANCE: Pain: No PHYSICAL EXAM: Vital Signs: VS wnl-reviewed/Respirations normal effort Vitals: 03/06/24 1840 BP: 129/81 Pulse: 95 Resp: 18 Temp: 36.4 C (97.5 F) TempSrc: Oral SpO2: 98% Abdomen: soft, NT, ND, no rebound/guarding Uterus: gravid/non-tender LE Edema: trace Speculum Exam: no pooling of fluid seen, Nitrizine test is negative, Ferning test is negative, cervix visually closed heart rate: Category I Cervix: closed Contraction frequency: none Membranes: Intact Musculoskeletal: Hypertonic paraspinal muscles from throacic to lumbar region that are tender to palpation. RESULTS: NST: Reactive GENERAL LABS: No results found for this or any previous visit (from the past 24 hours). TRIAGE COURSE: BSUS cephalic SVE closed SSE as above Lidocaine and flexaril for pain Vaginitis panel collected Will re-evaluate in 2 hours unchanged at this time. FHT Cat I and reactive. BGT on Dexcom 109. Patient reports improvement of sx. UA negative. Ucx and vaginitis pending, will follow up outpatient. Provided triage precautions and advised her to keep next OB appt. IMPRESSION: False Labor Pain assessment and plan: None DISCUSSED WITH C PROVIDER: Dr. Humphrey DISPOSITION: Discharge to Home Cosigned by Maria Victoria Campos DO at 03/06/2024 11:27 PM EST Associated attestation - Maria Victoria Campos DO - 03/06/2024 11:27 PM EST Hospital Care (Independent): I independently saw and evaluated the patient. I agree with the findings and plan of care as documented in the resident's note. I reviewed physical exam findings with thepatient and her significant other. Patient notes improvement in symptoms. All questions were answered to their satisfaction. Will plan to discharge home. Return precautions were provided. documented in this [facility]11-27-2024 Evaluation note* Diagnosis Onset Date Resolution Status Admit Date Abdominal pain acute January 072023 2:11pm Abnormal biliary HIDA scan acute February 02, 2024 2:11pm Cholecystectomy planned acute N ovember 2023 2:11pm Cholelithiasis acute January 072023 2:11pm GERD (gastroesophageal reflu x disease) acute February 01, 2 024 2:11pm Hx of recurrent urinary trac t infection acute February 01, 2 024 2:11pm Maternal varicella, non-immune acute February 02, 2024 2:11pm Morbid obesity with BMI of 40.0-44.9, adult acute February 02, 2024 2:11pm Nausea & vomiting acute Novembe r 2023 2:11pm Obstructive sleep apnea acute N ovember 2023 2:11pm Bloating symptom resolved February 02, 2024 2:11pm resolved February 02, 2024 2:11pm Supervision of high-risk resolved February 01, 2 024 2:11pm Two vessel umbilical cord in [place] , antepartum resolved February 01, 2 024 2:11pm UTI (urinary tract infection) resolv ed February 02, 2024 2:11pm Asthma exacerbation inactive Novem sole 2023 2:11pm Bronchitis inactive February 02, 2024 2:11pm Rh negative status during inactive February 01, 2 024 2:11pm Third trimester inactive February 02, 2024 2:11pm Type 1 diabetes mellitus affecting in first trimester, antepartum inactive January 072023 2:11pm Abnormal biliary HIDA scan acute February 16, 2024 1:40pm Cholecystectomy planned acute D ecember 2023 1:40pm Cholelithiasis acute February 052023 1:40pm GERD (gastroesophageal reflu x disease) acute February 15, 2 024 1:40pm Hx of recurrent urinary trac t infection acute February 15, 2 024 1:40pm Maternal varicella, non-immune acute February 16, 2024 1:40pm Morbid obesity with BMI of 40.0-44.9, adult acute February 16, 2024 1:40pm Bloating symptom resolved February 16, 2024 1:40pm resolved February 16, 2024 1:40pm Supervision of high-risk resolved February 15, 2 024 1:40pm Two vessel umbilical cord in [place] , antepartum resolved February 15, 2 024 1:40pm Rh negative status during inactive February 15, 2 024 1:40pm Type 1 diabetes mellitus affecting in first trimester, antepartum inactive February 052023 1:40pm Cholelithiasis acute February 052023 10:52am GERD (gastroesophageal reflu x disease) acute February 22, 2 024 10:52am Obstructive sleep apnea acute D ecember 2023 10:52am Third trimester inactive February 23, 2024 10:52am Mid back pain noneactive February 222023 10:52am Influenza vaccination declined nonea ctive February 23, 2024 10:52am Type 2 diabetes mellitus noneactive February 23, 2024 10:52am Cough present for greater th an 3 weeks noneactive February 22, 024 10:52am Memory change noneactive February 222023 10:52am Chronic headache noneactive February 23, 2024 10:52am Mild asthma without complication noneactive February 22, 2 024 10:52am 31 weeks gestation of resolved February 23 024 2:25am Abdominal pain during in third trimester resolved Feb 2:25am Abdominal pain acute February 062023 3:19pm Abnormal biliary HIDA scan acute February 28, 2024 3:19pm Cholecystectomy planned acute D ecember 2023 3:19pm Cholelithiasis acute February 062023 3:19pm GERD (gastroesophageal reflu x disease) acute February 27 024 3:19pm Hx of recurrent urinary trac t infection acute February 27 024 3:19pm Maternal varicella, non-immune acute February 28, 2024 3:19pm Morbid obesity with BMI of 40.0-44.9, adult acute February 28, 2024 3:19pm Nausea & vomiting acute Decembe r 2023 3:19pm Obstructive sleep apnea acute D ecember 2023 3:19pm Bloating symptom resolved February 28, 2024 3:19pm resolved February 28, 2024 3:19pm Supervision of high-risk resolved February 27 024 3:19pm Two vessel umbilical cord in [place] , antepartum resolved February 27 024 3:19pm UTI (urinary tract infection) resolv ed February 28, 2024 3:19pm Back strain inactive February 3:19pm Rh negative status during inactive February 27 024 3:19pm Third trimester inactive February 28, 2024 3:19pm Type 1 diabetes mellitus affecting in first trimester, antepartum inactive February 062023 3:19pm UTI in inactive February 28, 2024 3:19pm UTI (urinary tract infection) resolv ed March 09, 2024 2:45pm Abdominal pain acute March 2:30pm Abnormal biliary HIDA scan acute March 11, 2024 2:30pm Cholecystectomy planned acute J anuary 2024 2:30pm Cholelithiasis acute March 2:30pm GERD (gastroesophageal reflu x disease) acute March 11 2:30pm Hx of recurrent urinary trac t infection acute March 11 2:30pm Maternal varicella, non-immune acute March 11, 2024 2:30pm Morbid obesity with BMI of 40.0-44.9, adult acute March 11 2:30pm Nausea & vomiting acute March 11, 2024 2:30pm Obstructive sleep apnea acute J anuary 2024 2:30pm Bloating symptom resolved March 11, 2024 2:30pm Fall resolved March 11, 2 025 2:30pm resolved March 11, 2 025 2:30pm Supervision of high-risk resolved March 11 2:30pm Two vessel umbilical cord in [place] , antepartum resolved March 11 2:30pm UTI (urinary tract infection) resolv ed March 11, 2024 2:30pm Rh negative status during inactive March 11 2:30pm Type 1 diabetes mellitus affecting in first trimester, antepartum inactive March 2:30pm Abdominal pain acute March 3:09pm Abnormal biliary HIDA scan acute March 15, 2024 3:09pm Cholecystectomy planned acute J anuary 2024 3:09pm Cholelithiasis acute March 3:09pm Depression acute March 15, 2 025 3:09pm GERD (gastroesophageal reflu x disease) acute March 15 3:09pm Hx of recurrent urinary trac t infection acute March 15 3:09pm Maternal varicella, non-immune acute March 15, 2024 3:09pm Morbid obesity with BMI of 40.0-44.9, adult acute March 15 3:09pm Nausea & vomiting acute March 15, 2024 3:09pm Obstructive sleep apnea acute J anuary 2024 3:09pm Bloating symptom resolved March 15, 2024 3:09pm resolved March 15, 2 025 3:09pm Supervision of high-risk resolved March 15 3:09pm Two vessel umbilical cord in [place] , antepartum resolved March 15 3:09pm UTI (urinary tract infection) resolv ed March 15, 2024 3:09pm Rh negative status during inactive March 15 3:09pm Type 1 diabetes mellitus affecting in first trimester, antepartum inactive March 3:09pm Abdominal pain acute March 2:52pm Abnormal biliary HIDA scan acute March 16, 2024 2:52pm Cholecystectomy planned acute J anuary 2024 2:52pm Cholelithiasis acute March 2:52pm GERD (gastroesophageal reflu x disease) acute March 16 2:52pm Maternal varicella, non-immune acute March 16, 2024 2:52pm Morbid obesity with BMI of 40.0-44.9, adult acute March 16 2:52pm Nausea & vomiting acute March 16, 2024 2:52pm Obstructive sleep apnea acute J anuary 2024 2:52pm Bloating symptom resolved March 16, 2024 2:52pm resolved March 16, 2 025 2:52pm Supervision of high-risk resolved March 16 2:52pm Two vessel umbilical cord in [place] , antepartum resolved March 16 2:52pm Rh negative status during inactive March 16 2:52pm Trauma during inactive J anuary 2024 2:52pm Type 1 diabetes mellitus affecting in first trimester, antepartum inactive March 2:52pm Abdominal pain acute March 10:58pm Abnormal biliary HIDA scan acute March 16, 2024 10:58pm Cholecystectomy planned acute J anuary 2024 10:58pm Cholelithiasis acute March 10:58pm Depression acute March 16, 025 10:58pm GERD (gastroesophageal reflu x disease) acute March 16 10:58pm Hx of recurrent urinary trac t infection acute March 16 10:58pm Maternal varicella, non-immune acute March 16, 2024 10:58pm Morbid obesity with BMI of 40.0-44.9, adult acute March 16 10:58pm Nausea & vomiting acute March 16, 2024 10:58pm Obstructive sleep apnea acute J anuary 2024 10:58pm Bloating symptom resolved March 16, 2024 10:58pm resolved March 16, 10:58pm Supervision of high-risk resolved March 16 10:58pm Two vessel umbilical cord in [place] , antepartum resolved March 16 10:58pm UTI (urinary tract infection) resolv ed March 16, 2024 10:58pm Rh negative status during inactive March 16 10:58pm Type 1 diabetes mellitus affecting in first trimester, antepartum inactive March 10:58pm Headache resolved March 19, 2024 1:50pm Abdominal pain acute March 272024 4:55pm Abnormal biliary HIDA scan acute March 27, 2024 4:55pm Cholecystectomy planned acute J anuary 2024 4:55pm Cholelithiasis acute March 272024 4:55pm Depression acute March 27, 2024 4:55pm GERD (gastroesophageal reflu x disease) acute March 27 4:55pm Hx of recurrent urinary trac t infection acute March 27 4:55pm Maternal varicella, non-immune acute March 27, 2024 4:55pm Morbid obesity with BMI of 40.0-44.9, adult acute March 27 4:55pm Nausea & vomiting acute March 27, 2024 4:55pm Obstructive sleep apnea acute J anuary 2024 4:55pm Bloating symptom resolved March 27, 2024 4:55pm Encounter for induction of labor resolved March 27 4:55pm Headache resolved March 27, 2024 4:55pm resolved March 27, 2024 4:55pm Supervision of high-risk resolved March 27 4:55pm Two vessel umbilical cord in [place] , antepartum resolved March 27 4:55pm UTI (urinary tract infection) resolv ed March 27, 2024 4:55pm Rh negative status during inactive March 27 4:55pm Trauma during inactive J anuary 2024 4:55pm Type 1 diabetes mellitus affecting in first trimester, antepartum inactive March 272024 4:55pm Vaginal delivery inactive March 27, 2024 4:55pm Cholelithiasis acute April 082024 8:59am Depression acute May 03, 2024 10:26am Diabetes acute May 03, 2024 10:26am Routine Follow-Up noneact debra May 03, 2024 10:26am [facility] Work Phone: [phone]) 322-444011-06-2024 Telephone encounter Note* Telephone Encounter - Arnaldo Bowie APRN.CNP - 01/12/2024 1:24 PM EST resent [facility]11-06-2024 Miscellaneous Notes* Telephone Encounter - Arnaldo Bowie APRN.CNP - 01/12/2024 1:24 PM EST resent * Telephone Encounter - Muriel Rodriguez LPN - 01/12/2024 1:20 PM EST Patient calling, thought that a prescription for Flonase was to be sent to the pharmacy. Patient isasking [facility]. Please advise. [facility] Telephone encounter Note * Telephone Encounter - Muriel Rodriguez LPN - 01/12/2024 1:20 PM EST Patient calling, thought that a prescription for Flonase was to be sent to the pharmacy. [facility] [place] Please advise. [facility]11-06-2024 History of Present illness Narrative* Jennifer Mccoy, RT(R) - 01/12/2024 10:30 AM EST Radiology Service Progress Note PATIENT NAME: Fred Melgoza DATE OF SERVICE: January 12, 2024 TIME: 10:23 AM PATIENT IDENTITY VERIFICATION COMPLETED USING TWO (2) IDENTIFIERS: Name and Date of confirmedby patient verbally. FALL SCREENING: Has the patient had 2 falls in the last year or 1 fall with injury or currently using an Ambulatory Assistive Device (Walker, Cane, Wheelchair, Crutches, etc.)? No PATIENT GENDER DATA: Female. status: : Yes. Radiologist notified: Patient and ordering provider agreeable to imaging. status: NO. PATIENT RELEVANT IMPLANT DATA REVIEWED: Yes PATIENT PRESENTS WITH AN IMPLANTABLE OR ATTACHED EXPERIMENTAL ROCKETSLED MECHANIC: No RADIOLOGY DEPARTMENT: General X-ray: Exam(s) Completed: Chest X-Ray PERIPHERAL IV DATA: Not applicable SIGNED BY: ROSANA Villegas) January 12, 2024 10:23 AM [facility]24 NoteHNO ID: [id number] Author: JENNIFER MCCOY RT(R) Service: Radiology Author Type: Technologist Type: Progress Notes Filed: 01/12/2024 10:31 Note Text: Radiology Service Progress Note PATIENT NAME: Fred Melgoza DATE OF SERVICE: January 12, 2024 TIME: 10:23 AM PATIENT IDENTITY VERIFICATION COMPLETED USING TWO (2) IDENTIFIERS: Name and Date of confirmed by patient verbally. FALL SCREENING: Has the patient had 2 falls in the last year or 1 fall with injury or currently using an Ambulatory Assistive Device (Walker, Cane, Wheelchair, Crutches, etc.)? No PATIENT GENDER DATA: Female. status: : Yes. Radiologist notified: Patient and ordering provider agreeable to imaging. status: NO. PATIENT RELEVANT IMPLANT DATA REVIEWED: Yes PATIENT PRESENTS WITH AN IMPLANTABLE OR ATTACHED EXPERIMENTAL ROCKETSLED MECHANIC: No RADIOLOGY DEPARTMENT: General X-ray: Exam(s) Completed: Chest X-Ray PERIPHERAL IV DATA: Not applicable SIGNED BY: ROSANA Villegas) January 12, 2024 10:23 [facility]11-06-2024 NoteHNO ID: [id number] Author: ARNALDO BOWIE APRN.RETOUCHER [employer]ENG[employer]ING Service: ? Author Type: Nurse Practitioner Type: Progress Notes Filed: 01/12/2024 11:19 Note Text: Subjective HPI HPI Fred Melgoza is a 23 year old female who presents today for CC of cough, congestion, st. This started 6 days ago. Has tried otc medication for relief. Symptoms are worsened by nothing. Risk factors 25 weeks . Diabetic. nonsmoker. .Patient presents with: Cough: Cough, chest congestion, vomiting and St x 6 days PAST MEDICAL HISTORY Diagnosis Date Asthma Depression Diabetes mellitus (HCC) Generalized anxiety disorder No past surgical history on file. ALLERGIES Norethindrone Ac-Eth Estradiol, Norgestimate-Ethinyl Estradiol, Prednisone, and Zyrtec [Cetirizine] MEDICATIONS no.144-folic acid 400 mcg chew Take 1 tablet by mouth once daily. albuterol HFA (PROVENTIL HFA, VENTOLIN HFA) 90 mcg/actuation inhaler Inhale 2 Puffs as instructed every 6 hours as needed. omeprazole (PRILOSEC) 20 mg capsule take 1 capsule by mouth daily in the morning ondansetron orally disintegrating (ZOFRAN ODT) 4 mg disintegrating tablet Take by mouth. SUMAtriptan (IMITREX) 50 mg tablet TAKE 1 TABLET BY MOUTH NEEDED FOR MIGRAINE HEADACHE; MAY REPEAT AFTER 2 HOURS FREESTYLE SHOBHA 2 SENSOR kit glycopyrrolate (ROBINUL) 1 mg tablet Take 2 mg by mouth twice daily. sodium chloride (SALINE MIST) 0.65 % nasal spray Use 2 Sprays in the nose two times a day as needed. (Patient not taking: Reported on 05/14/2023) azelastine 0.1% nasal spray Use 1 [place] in each nostril two times a day. (Patient not taking: Reported on 05/14/2023) fluticasone (FLONASE) 50 mcg/actuation nasal spray Use 2 Sprays in each nostril two times a day. Rinse mouth after use. (Patient not taking: Reported on 05/14/2023) LIDOCAINE VISCOUS 2 % solution Take 15 mL by mouth three times a day as needed. (Patient not taking: Reported on 05/14/2023) JARDIANCE 10 mg tablet Take 1 tablet by mouth every afternoon. (Patient not taking: Reported on 05/14/2023) mupirocin (BACTROBAN) 2 % ointment Use 2 g in the nose. (Patient not taking: Reported on 05/14/2023) TRULICITY 1.5 mg/0.5 mL pen injector Inject 3 mg subcutaneously one time a week. (Patient not taking: Reported on 09/19/2023) metformin HCl (METFORMIN ORAL) Take 500 mg [...] Never Review of Systems Constitutional: Negative for fever. HENT: Positive for congestion and sore throat. Negative for ear pain and nosebleeds. Respiratory: Positive for cough. Negative for shortness of breath and wheezing. Musculoskeletal: Negative for neck pain. Objective Blood pressure 118/74, pulse 114, temperature 36.5 ?C (97.7 ?F), temperature source Tympanic, resp. rate 18, weight 124.1 kg (273 lb 9.5 oz), SpO2 98%. Physical Exam Constitutional: General: She is not in acute distress. Appearance: She is not toxic-appearing or diaphoretic. HENT: Head: Normocephalic and atraumatic. Right Ear: Hearing, tympanic membrane, ear canal and external ear normal. Left Ear: Hearing, tympanic membrane, ear canal and external ear normal. Nose: Nose normal. Mouth/Throat: Pharynx: Uvula midline. No pharyngeal swelling, oropharyngeal exudate, posterior oropharyngeal erythema or uvula swelling. Eyes: General: Lids are normal. No scleral icterus. Right eye: No discharge. Left eye: No discharge. Conjunctiva/sclera: Conjunctivae normal. Pupils: Pupils are equal, round, and reactive to light. Neck: Trachea: Trachea normal. Cardiovascular: Rate and Rhythm: Normal rate and regular rhythm. Heart sounds: Normal heart sounds. Pulmonary: Effort: Pulmonary effort is normal. Breath sounds: Normal breath sounds. Musculoskeletal: Cervical back: Normal range of motion and neck supple. Lymphadenopathy: Cervical: No cervical adenopathy. Right cervical: No superficial cervical adenopathy. Left cervical: No superficial cervical adenopathy. Skin: Findings: No rash. Neurological: Mental Status: She is alert and oriented to person, place, and time.[facility]11-06[facility] History of Present illness Narrative* Arnaldo Bowie APRN.RETOUCHER PHOTOENGRAVING - 01/12/2024 10:19 AM EST Subjective HPI HPI Fred Melgoza is a 23 year old female who presents today for CC of cough, congestion, st. This started 6 days ago. Has tried otc medication for relief. Symptoms are worsened by nothing. Riskfactors 25 weeks . Diabetic. nonsmoker. .Patient presents with: Cough: Cough, chest congestion, vomiting and St x 6 days PAST MEDICAL HISTORY Diagnosis Date Asthma Depression Diabetes mellitus (HCC) Generalized anxiety disorder No past surgical history on file. ALLERGIES Norethindrone Ac-Eth Estradiol, Norgestimate-Ethinyl Estradiol, Prednisone, and Zyrtec [Cetirizine] MEDICATIONS no.144-folic acid 400 mcg chew Take 1 tablet by mouth once daily. albuterol HFA (PROVENTIL HFA, VENTOLIN HFA) 90 mcg/actuation inhaler Inhale 2 Puffs as instructed every 6 hours as needed. omeprazole (PRILOSEC) 20 mg capsule take 1 capsule by mouth daily in the morning ondansetron orally disintegrating (ZOFRAN ODT) 4 mg disintegrating tablet Take by mouth. SUMAtriptan (IMITREX) 50 mg tablet TAKE 1 TABLET BY MOUTH NEEDED FOR MIGRAINE HEADACHE; MAY REPEAT AFTER 2 HOURS FREESTYLE SHOBHA 2 SENSOR kit glycopyrrolate (ROBINUL) 1 mg tablet Take 2 mg by mouth twice daily. sodium chloride (SALINE MIST) 0.65 % nasal spray Use 2 Sprays in the nose two times a day as needed. (Patient not taking: Reported on 05/14/2023) azelastine 0.1% nasal spray Use 1 [place] in each nostril two times a day. (Patient not taking: Reported on 05/14/2023) fluticasone (FLONASE) 50 mcg/actuation nasal spray Use 2 Sprays in each nostril two times a day. Rinse mouth after use. (Patient not taking: Reported on 05/14/2023) LIDOCAINE VISCOUS 2 % solution Take 15 mL by mouth three times a day as needed. (Patient not taking: Reported on 05/14/2023) JARDIANCE 10 mg tablet Take 1 tablet by mouth every afternoon. (Patient not taking: Reported on 05/14/2023) mupirocin (BACTROBAN) 2 % ointment Use 2 g in the nose. (Patient not taking: Reported on 05/14/2023) TRULICITY 1.5 mg/0.5 mL pen injector Inject 3 mg subcutaneously one time a week. (Patient not taking: Reported on 09/19/2023) metformin HCl (METFORMIN ORAL) Take 500 mg [...] Never Review of Systems Constitutional: Negative for fever. HENT: Positive for congestion and sore throat. Negative for ear pain and nosebleeds. Respiratory: Positive for cough. Negative for shortness of breath and wheezing. Musculoskeletal: Negative for neck pain. Objective Blood pressure 118/74, pulse 114, temperature 36.5 C (97.7 F), temperature source Tympanic, resp. rate 18, weight 124.1 kg (273 lb 9.5 oz), SpO2 98%. Physical Exam Constitutional: General: She is not in acute distress. Appearance: She is not toxic-appearing or diaphoretic. HENT: Head: Normocephalic and atraumatic. Right Ear: Hearing, tympanic membrane, ear canal and external ear normal. Left Ear: Hearing, tympanic membrane, ear canal and external ear normal. Nose: Nose normal. Mouth/Throat: Pharynx: Uvula midline. No pharyngeal swelling, oropharyngeal exudate, posterior oropharyngeal erythema or uvula swelling. Eyes: General: Lids are normal. No scleral icterus. Right eye: No discharge. Left eye: No discharge. Conjunctiva/sclera: Conjunctivae normal. Pupils: Pupils are equal, round, and reactive to light. Neck: Trachea: Trachea normal. Cardiovascular: Rate and Rhythm: Normal rate and regular rhythm. Heart sounds: Normal heart sounds. Pulmonary: Effort: Pulmonary effort is normal. Breath sounds: Normal breath sounds. Musculoskeletal: Cervical back: Normal range of motion and neck supple. Lymphadenopathy: Cervical: No cervical adenopathy. Right cervical: No superficial cervical adenopathy. Left cervical: No superficial cervical adenopathy. Skin: Findings: No rash. Neurological: Mental Status: She is alert and oriented to person, place, and time. documented [facility] Telephone encounter Note * Telephone Encounter - MILADIS Feldman - 12/02/2023 12:13 PM EDT Please obtain ophthalmology report from [facility] [id number] Miscellaneous Notes* Telephone Encounter - MILADIS Feldman - 12/02/2023 12:13 PM EDT Please obtain ophthalmology report from [facility] [place] from 09/[address] [facility]09-26-2024 History of Present illness Narrative* MILADIS Feldman - 12/02/2023 11:00 AM EDT Images from the original note were not included. [facility] ENDOCRINOLOG[facility] [address] [place] [address] Dept: [phone] Dept Loc: [phone] Visit type: Reason for Visit: New Patient and Diabetes Assessment and Plan 1. Pre-existing type 2 diabetes mellitus during in second trimester - C-Peptide - Comprehensive metabolic panel - Glutamic acid decarboxylase (Sendout) - Diabetes Foot Exam - Diabetes Eye Exam 2. Therapeutic drug monitoring Goal A1C = less than 7%. Lab Results Component Value Date HGBA1C 6.9 (A) 11/10/2023 Diabetes is not stable Insulin is necessary for ongoing mgmt. - Pt will make the following changes to regimen: Dexcom G7/notch grinder ( phone not compatible) currently--in process of changing to Medtronic pump Continue Lantus 37 units q hs Continue Humalog 11/29/23 saw MFM--19 wks 4 days PARAMJIT 04/20/24 After review of record PCP notes and patient hx of non-insulin agents for diabetes most likely DM 2-- however MFM notes states DM1 and patient is unsure, there are no available labs to confirm Will just check C-peptide and DAVID to be sure - Recommend FSBS to occur Dexcom G7 times daily, be recorded, and send to office in will report MFMweeks for review. - Discussed A1C and BG goals - Encouraged lifestyle modifications of diet and exercise - Encouraged optimal foot care- follow with podiatry if needed - Encouraged following with ophthalmology - Patient counseled on the importance of taking medication as prescribed - Patient counseled on the effects of uncontrolled DM on other organ systems - Patient counseled on risk factors assoicated with diabetes - Patient counseled on detection and treatment of hypoglycemia - Patient instructed to call office if BG >250 or <70 consistently - Pt counseled about these recommendations. Pt voiced understanding. Diagnostic data I reviewed: Outside Documentation: none Laboratory: yes Radiographic: none Pt was advised of the results. [] Records from outside facility/PCP office to be requested. [] Scripts sent to pharmacy of pt choice. No follow-ups on file. Subjective HPI PCP = Fifi Morales MD Referring provider: PCP Initial Wilber Pearson Office visit: 12/02/2023 AYDEN: na DM Onset: 2018 age 17 metformin--stopped due to SE then on Jardiance--stopped due to UTI's, Trulicity stopped due to Type of DM: DM2 Sxs at time of dx = passed out at school--ED BG 500 Previous hospitalizations for DM/glucose abnorms = denies DKA Family hx DM = Mom DM2 Pt complaints include: Referral was made prior to preg and patient wants to be established after Preg hx pre-gestational DM2 Gall bladder disease plan surgery PP Working with MFM for Medtronic Pump Current Dexcom G7/notch grinder Current DM Medications: Lantus 37 units q hs Humalog Injection Sites: rotating no issues Taking Medications w/o Missed Doses: Yes Pt c/o SEs from Medications at today's visit: No Pt voices concerns about cost of medications at today's visit: No Reports HGM Dexcom G7 times per day Blood Sugar Log present: Yes Log Reviewed w/ pt: Yes Scanned into Media: Yes Hyperglycemia present: Yes Hypoglycemia present: No Following Diet for DM: No Bf saus, egg, toast make into sandwich Lunch works at [employer]-- Dinner protein, veg, starch Snack cheese stick, fruit Drink decaf coffee with SF creamer, water, diet pop Following Exercise Regimen: Yes At work-- go to gym with -- less lately Previously Used DM Meds: Yes metformin--stopped due to SE Jardiance--stopped due to UTI's, Trulicity stopped due to Lantus/Humalog in preg Complications: Cardiovascular -- No denies HTN, HLP, CAD Statin Use -- No Last JORDY/Retina Eval: 09/2023 [facility] Retinopathy -- No Nephropathy -- No YAYA/ARB Use -- No Polyneuropathy -- No foot exam 12/02/2023 Obesity -- Yes Other -- No AZAM needs to change mask Review of Systems Constitutional: Positive for fatigue. Gastrointestinal: Positive for nausea and vomiting (occasionally). Negative for abdominal pain, constipation and diarrhea. Endocrine: Positive for polydipsia and polyuria. Negative for polyphagia. Skin: Negative for wound. Neurological: Negative for numbness. Psychiatric/Behavioral: Positive for sleep disturbance. Negative for behavioral problems. The patient is not nervous/anxious. Allergies Allergen Reactions Prednisone Other and Anaphylaxis Latex Swelling Cetirizine Swelling Metformin Nausea And Vomiting Microgestin Fe 1-20 [Norethin Yaya-Eth Estrad-Fe] Unknown and Other Norgestimate-Eth Estradiol Angioedema Other Other reaction(s): Anaphylaxis Outpatient Medications Prior to Visit Medication Sig Dispense Refill albuterol 108 (90 Base) MCG/ACT inhaler Inhale 2 puffs every 6 hours as needed for wheezing or shortness of breath. 18 g 3 aspirin 81 MG EC tablet 81 mg po daily glycopyrrolate (Robinul) 2 MG tablet Take 1 tablet (2 mg) by mouth daily. 90 tablet 0 insulin lispro (HumaLOG) 100 UNIT/ML pen injection Inject 15-30 Units under the skin in the morningand 15-30 Units at noon and 15-30 Units in the evening. Inject 20 units with bf, for lunch 22 unitsand for dinner 24 units . Lantus SoloStar 100 UNIT/ML pen Inject 37 before bedtime magnesium oxide (Mag-Ox) 400 (240 Mg) MG tablet Take 1 Tablet (400 mg) by mouth daily for 180 days VIT W/ FE BISG-FA PO Take by mouth. SUMAtriptan (Imitrex) 50 MG tablet Take 1 tablet (50 mg) by mouth Once as needed for migraine. May repeat after 2 hours. 9 tablet 3 Unifine Pentips 29G X 12MM misc use 1 new pen tip with each injection. Continuous Blood Gluc Transfer Man (FreeStyle Shobha 2 [place]) device 1 Units 4 times daily (before meals and nightly). 1 each 0 Continuous Blood Gluc Sensor (FreeStyle Shobha 2 Sensor) misc Change sensor every two weeks to monitor blood sugars 2 each 11 dulaglutide (Trulicity) 3 MG/0.5ML solution pen-injector Inject 3 mg under the skin 1 (one) time per week. 4 each 3 omeprazole (PriLOSEC) [address] capsule Take 20 mg by mouth daily. No facility-administered medications prior to visit. Past Medical History: Diagnosis Date Acid reflux Asthma Diabetes mellitus (HCC) Sleep apnea Social History Tobacco Use Smoking status: Never Smokeless tobacco: Never Substance Use Topics Alcohol use: Never History reviewed. No pertinent surgical history. Family History Problem Relation Name Age of Onset Diabetes Mother Hypertension Mother COPD Mother Arthritis Father Cancer Maternal Grandmother Diabetes Maternal Grandfather Objective BP 111/53 Pulse 89 Ht 5' 6 (1.676 m) Wt 266 lb (121 kg) LMP 04/08/2023 (Exact Date) BMI 42.93 kg/m Physical Exam Vitals reviewed. Constitutional: General: She is not in acute distress. Appearance: Normal appearance. She is obese. HENT: Head: Normocephalic. Eyes: Pupils: Pupils are equal, round, and reactive to light. Cardiovascular: Rate and Rhythm: Normal rate and regular rhythm. Pulses: Normal pulses. Heart sounds: Normal heart sounds. Pulmonary: Effort: Pulmonary effort is normal. Breath sounds: Normal breath sounds. Abdominal: General: Bowel sounds are normal. Musculoskeletal: General: Normal range of motion. Cervical back: Normal range of motion. Feet: Right foot: Protective Sensation: 7 sites tested. 7 sites sensed. Skin integrity: No callus or dry skin. Toenail Condition: Right toenails are normal. Left foot: Protective Sensation: 7 sites tested. 7 sites sensed. Skin integrity: No callus or dry skin. Toenail Condition: Left toenails are normal. Comments: Foot exam completed Skin: General: Skin is warm and dry. Comments: Dexcom rt arm Neurological: Mental Status: She is alert and oriented to person, place, and time. Psychiatric: Mood and Affect: Mood normal. Behavior: Behavior normal. Data Reviewed and Summarized Labs: No components found for: LABA1C No components found for: EAG Lab Results Component Value Date NA 137 01/18/2022 K 4.0 01/18/2022 CL 106 01/18/2022 CO2 22 04/26/2023 BUN 19 04/26/2023 CREATININE 0.77 04/26/2023 GLUCOSE 103 (H) 04/26/2023 CALCIUM 8.8 04/26/2023 Lab Results Component Value Date CHOL 158 11/08/2021 CHOL 159 05/23/2021 CHOL 166 05/28/2020 Lab Results Component Value Date TRIG 134 11/08/2021 TRIG 146 05/23/2021 TRIG 157 (A) 05/28/2020 Lab Results Component Value Date HDL 40 11/08/2021 HDL 32 (L) 05/23/2021 HDL 39 (L) 05/28/2020 No results found for: LDLCALC No results found for: VLDL Lab Results Component Value Date CHOLHDLRATIO 4 11/08/2021 CHOLHDLRATIO 5 05/23/2021 CHOLHDLRATIO 4 05/28/2020 No results found for: [id number] No results found for: THYROID Imaging/Testing: I spent total time 45 minutes reviewing previous notes, test results, and face to face with the patient discussing the diagnosis and importance of compliance with the treatment plan as well as documenting on the day of the visit. I have addressed the above chronic illnesses including management, progression, and benefits and side effects of treatment. Portions of the information within this encounter were entered using an electronic dictation system. Best attempts were made to edit/proofread the information prior to note completion. Despite the review of information, some errors may remain. If there are questions related to the information contained within the note please contact the signing provider directly. Electronically signed by Kristen ESTES, POWERHOUSE MECHANIC APPRENTICE, ACNS-BC, CDCES Clinical Nurse Specialist and Certified Diabetes Care and Industrial Gas Fitter Helper on 12/02/2023 12:07 PM MILADIS Noriega documented in this encounterSBlanchard Valley Health System Bl[facility]ard Valley [id number] NoteHNO ID: [id number] Author: INOCENCIA BRANDON APRN.CNP Service: ? Author Type: Nurse Practitioner Type: Progress Notes Filed: 10/28/2023 19:38 Note Text: TRIAGE NOTE: Fred Melgoza with boyfriend, reports to express care with c/o abdominal pain. She is 15w3d . She denies any vaginal bleeding, discharge or loss of fluid. She has not yet felt movement. She did not call OB. Advised due to complaint and , she would need to be evaluated in OB triage. Will call OB at [place] and go to [facility]. Inocencia Brandon APRN.CNPMercy Health [facility]08-22-2024 History of Present illness Narrative* Inocencia Brandon APRN.CNP - 10/28/2023 6:54 PM EDT TRIAGE NOTE: Fred Melgoza with boyfriend, reports to express care with c/o abdominal pain. She is 15w3d . She denies any vaginal bleeding, discharge or loss of fluid. She has not yet felt movement. She did not call OB. Advised due to complaint and , she would need to be evaluated in OB triage. Will call OB at [place] and go to [facility]. Inocencia Brandon APRN.CNP documented in this encounterTrumbull [facility]08-15-2024 [facility] CONSULTATION ASSESSMENT AND RECOMMENDATIONS DM1 I explained to the patient that patients with diabetes are at significant risks during their . Poor glucose control at conception is associated with increased risk for miscarriage and malformations, particularly skeletal, cardiac and NEWS ASSISTANT. It is difficult to know her exact risk given we do not have her A1c values outside of . However, it is fair to say likely elevated above normal (<6%) given prior elevations of A1c near 8% and known elevated fasting levels. Our goal A1c would be to get her less than 6%. We also discussed at length the potential for growth abnormality- either growth restriction or macrosomia, polyhydramnios, premature delivery, preeclampsia, stillbirth, diabetic ketoacidosis, operative delivery, injury, delayed lung maturity leading to respiratory distress syndrome and complications including but not limited to: jaundice, hypoglycemia, hypocalcemia and polycythemia. I explained that diabetics with long standing poor control are at risk for maternal cardiac, renal, vascular damage that increases her risk for decompensation during . We reviewed monitoring of her fetus, which will include: - Anatomy ultrasound at 18-20 weeks gestation - echocardiogram at 22-24 weeks gestation - Serial growth ultrasound by 28 weeks gestaton - surveillance by 32 weeks gestation The patient has previously met with the nutritional educators to discuss diet information. Please see that separate note from 10/20/23. The patient does currently have a Shobha CGM in place, however it is not compatible with her phone. This makes it difficult to assess control. I discussed checking her blood glucose and logging for the next 3-4 days so that we can make adjustments to her insulin regimen this coming Mon/Tu. We can consider switching to a different CGM that may be compatible at next visit. I have instructed her on checking her glucose before and 1hour after each meal. We reviewed our glucose goals are < 90-95 before meals and < 140 after meals, which is consistent with goals outlined by the [place] [employer] and [place] [employer]. The importance of diet and schedule was emphasized. We also discussed that she consider possible barriers to her schedule, eating choices and how we can help with achieving this goal for the prevention of a poor outcome. Asthma Multiple physiologic changes of the cardiopulmonary system occur during . From a pulmonary standpoint, residual volume and functional residual capacity decreased secondary to diaphragmatic elevation. Minute ventilation increases, resulting in an increased PaO2 and decreased PaO2 compared to the non- state. Women also develop a slight alkalosis (respiratory alkalosis). These changes are very important when one is interpreting a woman with an asthma exacerbation. A PaCO2 >35 mmHg and/or a PaO2 <70 mmHg represents more severe compromise than it would in the non- state. As for asthma severity, about 1/3 of women improve during , 1/3 worsen, and 1/3 remain stable. Worsening is most likely to occur between 29 and 36 weeks, with disease status often improving somewhat in the last month of . Monitoring of the peak expiratory flow and/or forced expiratory volume in 1 minute can allow earlier detection and management of an exacerbation. As for the effects of asthma on , a few complications may be more likely, including mortality, preeclampsia/HTN, delivery, low birthweight, hemorrhage, labor complications, congenital malformations, and mortality. The OR for these complications, though, is generally only between the range of 1.1 to 1.7. The theory is that the impaired maternal oxygenation may impact oxygenation and/or uteroplacental blood flow. When managing asthma in , it is important to remember that treatment should be similar in many ways to the non- state. In the setting of an asthma exacerbation, the goal should be to keep the maternal SpO2 greater than or equal to 95%. FHT monitoring is indicated to assess the oxygenation status, particularly if the mother requires O2 supplementation or more aggressive management. From a medication standpoint, prednisone is commonly used for treatment of asthma exacerbation in . There may be an increased risk of suboptimal growth, but this is hard to fully tease out from the risk of FGR secondary to the disease itself. Fluticasone (inhaled glucocorticoid), Mometasone/Formoterol, and Albuterol can all be safely used in . Migraines The patient reports that she has long-standing history of migraines in . Outside of , she has been on Im (more content not included)...[facility]07-24-2024 Telephone encounter Note* Telephone Encounter - Yolette Blanton - 09/29/2023 8:45 AM EDT 2nd attempt- sent Merkleg to pt. [facility] [id number] Miscellaneous Notes* Telephone Encounter - Yolette Blanton - 09/29/2023 8:45 AM EDT 2nd attempt- sent mychart msg to pt. * Telephone Encounter - Rosalio Lundberg - 09/28/2023 3:32 PM EDT Name of Caller: Fred Contact Reason for Appointment: Fred returned call to potentially get November appointment. Please advise. Office Name: Endocrinology * Telephone Encounter - Yolette Blanton - 09/28/2023 1:48 PM EDT 1st attempt to schedule patient sooner- left voicemail offering November at the [place] location. Left our phone number for patient to call back. * Telephone Encounter - Livier Beasley - 09/27/2023 3:55 PM EDT Pt returned call to office to schedule appointment. Pt prefers not to wait until January for DISPLAY MAKER appt, as she is . Please advise. * Telephone Encounter - Yolette Blanton - 09/27/2023 9:41 AM EDT Processed/created the referral. Patient is ready for scheduling. * Telephone Encounter - Yolette Blanton - 09/24/2023 8:14 AM EDT An incomplete referral has been received in Endocrinology and is being processed. It is missing necessary documents that would enable a productive appointment with the patient. A request for records will be sent to the referring provider's office. We are waiting on the receipt of these documents prior to finishing the referral and scheduling the patient. Missing Labs. * Telephone Encounter - Rosalio Lundberg - 09/22/2023 1:32 PM EDT Name of caller: Fred Contact phone number: [phone] Relationship to Patient: patient Provider: N/A Practice: Endocrinology Chief Complaint/Reason for Call: Fred called advising her PCP Dr Keagan Shrestha from [facility] sent referral over. Please advise if referral was received. Best time of day caller can be reached: any Patient advised that office/PCP has 24-48 business hours to return their call: Yes documented in this encounterSBlanchard Valley Health System Blanchard Valley [id number] Telephone encounter Note* Telephone Encounter - Rosalio Lundberg - 09/28/2023 3:32 PM EDT Name of Caller: Fred Contact Reason for Appointment: Fred returned call to potentially get November appointment. Please advise. Office Name: Endocrinology [facility] [id number] Miscellaneous Notes* Telephone Encounter - Rosalio Lundberg - 09/28/2023 3:32 PM EDT Name of Caller: Fred Contact Reason for Appointment: Fred returned call to potentially get November appointment. Please advise. Office Name: Endocrinology * Telephone Encounter - Yolette Blanton - 09/28/2023 1:48 PM EDT 1st attempt to schedule patient sooner- left voicemail offering November at the [place] location. Left our phone number for patient to call back. * Telephone Encounter - Livier Beasley - 09/27/2023 3:55 PM EDT Pt returned call to office to schedule appointment. Pt prefers not to wait until January for DISPLAY MAKER appt, as she is . Please advise. * Telephone Encounter - Yolette Blanton - 09/27/2023 9:41 AM EDT Processed/created the referral. Patient is ready for scheduling. * Telephone Encounter - Yolette Blanton - 09/24/2023 8:14 AM EDT An incomplete referral has been received in Endocrinology and is being processed. It is missing necessary documents that would enable a productive appointment with the patient. A request for records will be sent to the referring provider's office. We are waiting on the receipt of these documents prior to finishing the referral and scheduling the patient. Missing Labs. * Telephone Encounter - Rosalio Lundberg - 09/22/2023 1:32 PM EDT Name of caller: Fred Contact phone number: [phone] Relationship to Patient: patient Provider: N/A Practice: Endocrinology Chief Complaint/Reason for Call: Fred called advising her PCP Dr Keagan Shrestha from [facility] sent referral over. Please advise if referral was received. Best time of day caller can be reached: any Patient advised that office/PCP has 24-48 business hours to return their call: Yes documented [facility] this [facility]07-23-2024 Telephone encounter Note* Telephone Encounter - Yolette Blanton - 09/28/2023 1:48 PM EDT 1st attempt to schedule patient sooner- left voicemail offering November at the [place] location. Left our phone number for patient to call back. [facility] [id number] Telephone encounter Note* Telephone Encounter - Livier Beasley - 09/27/2023 3:55 PM EDT Pt returned call to office to schedule appointment. Pt prefers not to wait until January for DISPLAY MAKER appt, as she is . Please advise. [facility] [id number] Miscellaneous Notes* Telephone Encounter - Livier Beasley - 09/27/2023 3:55 PM EDT Pt returned call to office to schedule appointment. Pt prefers not to wait until January for DISPLAY MAKER appt, as she is . Please advise. * Telephone Encounter - Yolette Blanton - 09/27/2023 9:41 AM EDT Processed/created the referral. Patient is ready for scheduling. * Telephone Encounter - Yolette Blanton - 09/24/2023 8:14 AM EDT An incomplete referral has been received in Endocrinology and is being processed. It is missing necessary documents that would enable a productive appointment with the patient. A request for records will be sent to the referring provider's office. We are waiting on the receipt of these documents prior to finishing the referral and scheduling the patient. Missing Labs. * Telephone Encounter - Rosalio Lundberg - 09/22/2023 1:32 PM EDT Name of caller: Fred Contact phone number: [phone] Relationship to Patient: patient Provider: N/A Practice: Endocrinology Chief Complaint/Reason for Call: Fred called advising her PCP Dr Keagan Shrestha from [facility] sent referral over. Please advise if referral was received. Best time of day caller can be reached: any Patient advised that office/PCP has 24-48 business hours to return their call: Yes documented in this encounterSBlanchard Valley Health System Blanchard Valley [id number] Telephone encounter Note* Telephone Encounter - Yolette Blanton - 09/27/2023 9:41 AM EDT Processed/created the referral. Patient is ready for scheduling. [facility] [id number] Telephone encounter Note* Telephone Encounter - Yolette Blanton - 09/24/2023 8:14 AM EDT An incomplete referral has been received in Endocrinology and is being processed. It is missing necessary documents that would enable a productive appointment with the patient. A request for records will be sent to the referring provider's office. We are waiting on the receipt of these documents prior to finishing the referral and scheduling the patient. Missing Labs. [facility] [id number] Miscellaneous Notes* Telephone Encounter - Yolette Blanton - 09/24/2023 8:14 AM EDT An incomplete referral has been received in Endocrinology and is being processed. It is missing necessary documents that would enable a productive appointment with the patient. A request for records will be sent to the referring provider's office. We are waiting on the receipt of these documents prior to finishing the referral and scheduling the patient. Missing Labs. * Telephone Encounter - Rosalio Lundberg - 09/22/2023 1:32 PM EDT Name of caller: Fred Contact phone number: [phone] Relationship to Patient: patient Provider: N/A Practice: Endocrinology Chief Complaint/Reason for Call: Fred called advising her PCP Dr Keagan Shrestha from [facility] sent referral over. Please advise if referral was received. Best time of day caller can be reached: any Patient advised that office/PCP has 24-48 business hours to return their call: Yes [facility] [id number] Telephone encounter Note* Telephone Encounter - Rosalio Pierce Lundberg - 09/22/2023 1:32 PM EDT Name of caller: Fred Contact phone number: [phone] Relationship to Patient: patient Provider: N/A Practice: Endocrinology Chief Complaint/Reason for Call: Fred called advising her PCP Dr Keagan Shrestha from [facility] sent referral over. Please advise if referral was received. Best time of day caller can be reached: any Patient advised that office/PCP has 24-48 business hours to return their call: Yes [id number] Miscellaneous Notes* Telephone Encounter - Rosalio Pierce Lundberg - 09/22/2023 1:32 PM EDT Name of caller: Fred Contact phone number: [phone] Relationship to Patient: patient Provider: N/A Practice: Endocrinology Chief Complaint/Reason for Call: Fred called advising her PCP Dr Keagan Shrestha from [facility] sent referral over. Please advise if referral was received. Best time of day caller can be reached: any Patient advised that office/PCP has 24-48 business hours to return their call: Yes documented in this [facility]07-14-2024 Instructions* Patient Instructions* Ned Birch PA - 09/19/2023 2:04 PM EDT Rest the area. Ice 3 times daily for 15 minutes at a time Tylenol as needed for pain. Do not exceed 3 g in a day. documented in this [facility]-2024 NoteHNO ID: [id number] Author: NED BIRCH PA Service: ? Author Type: Physician Audience Development Manager Type: Progress Notes Filed: 09/19/2023 14:13 Note Text: This note was created using Fanmoderiter. Subjective Fred Melgoza is a 23 year old female. HPI 23-year-old female 9 weeks presents for left low back pain starting yesterday. Patient states she has been having left low back pain and left buttocks pain since yesterday. Pain is worse with movement and walking. She had a little bit of pain and numbness radiating into the back of her legs. No pain or numbness anywhere else. No fevers. No history of sciatica. No history of surgery in the lumbar spine. No vaginal discharge or bleeding. No abdominal pain or pelvic pain. No urinary symptoms. She has not taken anything [id number] as she is not sure which she can take due to being . PAST MEDICAL HISTORY Diagnosis Date Asthma Depression Diabetes mellitus (HCC) Generalized anxiety disorder No past surgical history on file. ALLERGIES Norethindrone Ac-Eth Estradiol, Norgestimate-Ethinyl Estradiol, Prednisone, and Zyrtec [Cetirizine] MEDICATIONS no.144-folic acid 400 mcg chew Take 1 tablet by mouth once daily. albuterol HFA (PROVENTIL HFA, VENTOLIN HFA) 90 mcg/actuation inhaler Inhale 2 Puffs as instructed every 6 hours as needed. ondansetron orally disintegrating (ZOFRAN ODT) 4 mg disintegrating tablet Take by mouth. SUMAtriptan (IMITREX) 50 mg tablet TAKE 1 TABLET BY MOUTH NEEDED FOR MIGRAINE HEADACHE; MAY REPEAT AFTER 2 HOURS FREESTYLE SHOBHA 2 SENSOR kit glycopyrrolate (ROBINUL) 1 mg tablet Take 2 mg by mouth twice daily. omeprazole (PRILOSEC) 20 mg capsule take 1 capsule by mouth daily in the morning sodium chloride (SALINE MIST) 0.65 % nasal spray Use 2 Sprays in the nose two times a day as needed. (Patient not taking: Reported on 05/14/2023) azelastine 0.1% nasal spray Use 1 [place] in each nostril two times a day. (Patient not taking: Reported on 05/14/2023) fluticasone (FLONASE) 50 mcg/actuation nasal spray Use 2 Sprays in each nostril two times a day. Rinse mouth after use. (Patient not taking: Reported on 05/14/2023) LIDOCAINE VISCOUS 2 % solution Take 15 mL by mouth three times a day as needed. (Patient not taking: Reported on 05/14/2023) JARDIANCE 10 mg tablet Take 1 tablet by mouth every afternoon. (Patient not taking: Reported on 05/14/2023) mupirocin (BACTROBAN) 2 % ointment Use 2 g in the nose. (Patient not taking: Reported on 05/14/2023) TRULICITY 1.5 mg/0.5 mL pen injector Inject 3 mg subcutaneously one time a week. (Patient not taking: Reported on 09/19/2023) metformin HCl (METFORMIN ORAL) Take 500 mg [...] Never Review of Systems Constitutional: Negative for chills and fever. HENT: Negative for congestion, ear pain and sore throat. Respiratory: Negative for cough and shortness of breath. Cardiovascular: Negative for chest pain. Gastrointestinal: Negative for diarrhea and vomiting. Musculoskeletal: Positive for back pain. Objective BP 128/70 Pulse 86 Temp 36.4 ?C (97.5 ?F) Resp 16 Wt 116 kg (255 lb 11.7 oz) LMP (LMP Unknown) SpO2 97% BMI 41.28 kg/m? Physical Exam Vitals and nursing note reviewed. Constitutional: General: She is not in acute distress. Appearance: Normal appearance. She is not toxic-appearing. Cardiovascular: Rate and Rhythm: Normal rate and regular rhythm. Pulmonary: Effort: Pulmonary effort is normal. Breath sounds: Normal breath sounds. Musculoskeletal: Lumbar back: Tenderness present. No bony tenderness. Negative right straight leg raise test and negative left straight leg raise test. Back: Comments: Tenderness over left lower lumbar paraspinal muscles. No midline tenderness. Pain worse with movement of lumbar spine. Normal sensation lower extremities. Negative seated straight leg raise. Able to ambulate. Skin: General: Skin is warm and dry. Neurological: Mental Status: She is alert. Assessment and Plan ASSESSMENT/PLAN: 1. Lumbar pain - ICD9: 724.2, ICD10: M54.50 -Suspect muscular pain. -Low suspicion fracture, no fall or injury. -Patient is . Recommend ice 3 times daily. Tylenol as needed for pain. -Given red flag symptoms and when to go to ER. -Follow-up with OB as scheduled. Diagnosis and treatment plan were discussed and questions were answered to the patient's satisfaction. Pt acknowledged understanding of concepts and follow up plan. Specific signs and symptoms that would indica (more content not included)...[facility]07-14-2024 History of Present illness Narrative* Ned Birch PA - 09/19/2023 1:57 PM EDT Images from the original note were not included. This note was created using Plusmoter. Subjective Fred Melgoza is a 23 year old female. HPI 23-year-old female 9 weeks presents for left low back pain starting yesterday. Patientstates she has been having left low back pain and left buttocks pain since yesterday. Pain is worsewith movement and walking. She had a little bit of pain and numbness radiating into the back of herlegs. No pain or numbness anywhere else. No fevers. No history of sciatica. No history of surgery in the lumbar spine. No vaginal discharge or bleeding. No abdominal pain or pelvic pain. No urinary symptoms. She has not taken anything [id number] as she is not sure which she can take due to being . PAST MEDICAL HISTORY Diagnosis Date Asthma Depression Diabetes mellitus (HCC) Generalized anxiety disorder No past surgical history on file. ALLERGIES Norethindrone Ac-Eth Estradiol, Norgestimate-Ethinyl Estradiol, Prednisone, and Zyrtec [Cetirizine] MEDICATIONS no.144-folic acid 400 mcg chew Take 1 tablet by mouth once daily. albuterol HFA (PROVENTIL HFA, VENTOLIN HFA) 90 mcg/actuation inhaler Inhale 2 Puffs as instructed every 6 hours as needed. ondansetron orally disintegrating (ZOFRAN ODT) 4 mg disintegrating tablet Take by mouth. SUMAtriptan (IMITREX) 50 mg tablet TAKE 1 TABLET BY MOUTH NEEDED FOR MIGRAINE HEADACHE; MAY REPEAT AFTER 2 HOURS FREESTYLE SHOBHA 2 SENSOR kit glycopyrrolate (ROBINUL) 1 mg tablet Take 2 mg by mouth twice daily. omeprazole (PRILOSEC) 20 mg capsule take 1 capsule by mouth daily in the morning sodium chloride (SALINE MIST) 0.65 % nasal spray Use 2 Sprays in the nose two times a day as needed. (Patient not taking: Reported on 05/14/2023) azelastine 0.1% nasal spray Use 1 [place] in each nostril two times a day. (Patient not taking: Reported on 05/14/2023) fluticasone (FLONASE) 50 mcg/actuation nasal spray Use 2 Sprays in each nostril two times a day. Rinse mouth after use. (Patient not taking: Reported on 05/14/2023) LIDOCAINE VISCOUS 2 % solution Take 15 mL by mouth three times a day as needed. (Patient not taking: Reported on 05/14/2023) JARDIANCE 10 mg tablet Take 1 tablet by mouth every afternoon. (Patient not taking: Reported on 05/14/2023) mupirocin (BACTROBAN) 2 % ointment Use 2 g in the nose. (Patient not taking: Reported on 05/14/2023) TRULICITY 1.5 mg/0.5 mL pen injector Inject 3 mg subcutaneously one time a week. (Patient not taking: Reported on 09/19/2023) metformin HCl (METFORMIN ORAL) Take 500 mg [...] Never Review of Systems Constitutional: Negative for chills and fever. HENT: Negative for congestion, ear pain and sore throat. Respiratory: Negative for cough and shortness of breath. Cardiovascular: Negative for chest pain. Gastrointestinal: Negative for diarrhea and vomiting. Musculoskeletal: Positive for back pain. Objective BP 128/70 Pulse 86 Temp 36.4 C (97.5 F) Resp 16 Wt 116 kg (255 lb 11.7 oz) LMP (LMP Unknown) SpO2 97% BMI 41.28 kg/m Physical Exam Vitals and nursing note reviewed. Constitutional: General: She is not in acute distress. Appearance: Normal appearance. She is not toxic-appearing. Cardiovascular: Rate and Rhythm: Normal rate and regular rhythm. Pulmonary: Effort: Pulmonary effort is normal. Breath sounds: Normal breath sounds. Musculoskeletal: Lumbar back: Tenderness present. No bony tenderness. Negative right straight leg raise test and negative left straight leg raise test. Back: Comments: Tenderness over left lower lumbar paraspinal muscles. No midline tenderness. Pain worse with movement of lumbar spine. Normal sensation lower extremities. Negative seated straight leg raise. Able to ambulate. Skin: General: Skin is warm and dry. Neurological: Mental Status: She is alert. Assessment and Plan ASSESSMENT/PLAN: 1. Lumbar pain - ICD9: 724.2, ICD10: M54.50 -Suspect muscular pain. -Low suspicion fracture, no fall or injury. -Patient is . Recommend ice 3 times daily. Tylenol as needed for pain. -Given red flag symptoms and when to go to ER. -Follow-up with OB as scheduled. Diagnosis and treatment plan were discussed and questions were answered to the patient's satisfaction. Pt acknowledged understanding of concepts and follow up plan. Specific signs and symptoms that would indicate the need for higher level of care were discussed in detail warranting prompt ER evaluation. AMADO Santillan documented in this encounterTr[facility]06-10-2024 NoteHNO ID: [id number] Author: TIKI JEFFERSON APRN.EVANS Service: ? Author Type: Nurse Practitioner Type: Progress Notes Filed: 08/16/2023 18:53 Note Text: This note was created using Fanmoderiter. Subjective Fred Melgoza is a 23 year old female. Fred Melgoza is a 23 year old female with a PMH of T1DM, asthma, presenting with a possible . She is here today with her . He states that they have had 3 positive at-home tests since last night. She had noticed her menstrual cycle was late so that's why she decided to take one. Her LMP was July 08. Her last gynecology appointment was some time in the last year. She has a scheduled gynecology appointment on the this month. They had unprotected intercourse, and had been trying to get for years. She denies urinary frequency, urgency and burning, but states she is urinating more than usual and doesn't know if it is related to her T1DM. She denies vaginal discharge. Endorses n/v/d, but states she has gallbladder issues that might cause that. Her also states that she has been increasingly florentino, and that he noticed her abdomen was firm last week. Pertinent negatives: -abdominal pain -back pain -diaphoresis -fever -shortness of breath -chest pain -pelvic pain -vaginal pain -urinary frequency/urgency -vaginal discharge Pertinent positives: +polyuria +n/v/d +chills +fatigue The history is provided by the patient and the spouse. PAST MEDICAL HISTORY Diagnosis Date Asthma Depression Diabetes mellitus (HCC) Generalized anxiety disorder No past surgical history on file. ALLERGIES Norethindrone Ac-Eth Estradiol, Norgestimate-Ethinyl Estradiol, Prednisone, and Zyrtec [Cetirizine] MEDICATIONS albuterol HFA (PROVENTIL HFA, VENTOLIN HFA) 90 mcg/actuation inhaler Inhale 2 Puffs as instructed every 6 hours as needed. omeprazole (PRILOSEC) 20 mg capsule take 1 capsule by mouth daily in the morning ondansetron orally disintegrating (ZOFRAN ODT) 4 mg disintegrating tablet Take by mouth. SUMAtriptan (IMITREX) 50 mg tablet TAKE 1 TABLET BY MOUTH NEEDED FOR MIGRAINE HEADACHE; MAY REPEAT AFTER 2 HOURS FREESTYLE SHOBHA 2 SENSOR kit glycopyrrolate (ROBINUL) 1 mg tablet Take 2 mg by mouth twice daily. TRULICITY 1.5 mg/0.5 mL pen injector Inject 3 mg subcutaneously one time a week. no.144-folic acid 400 mcg chew Take 1 tablet by mouth once daily. sodium chloride (SALINE MIST) 0.65 % nasal spray Use 2 Sprays in the nose two times a day as needed. (Patient not taking: Reported on 05/14/2023) azelastine 0.1% nasal spray Use 1 [place] in each nostril two times a day. (Patient not taking: Reported on 05/14/2023) fluticasone (FLONASE) 50 mcg/actuation nasal spray Use 2 Sprays in each nostril two times a day. Rinse mouth after use. (Patient not taking: Reported on 05/14/2023) LIDOCAINE VISCOUS 2 % solution Take 15 mL by mouth three times a day as needed. (Patient not taking: Reported on 05/14/2023) JARDIANCE 10 mg tablet Take 1 tablet by mouth every afternoon. (Patient not taking: Reported on 05/14/2023) mupirocin (BACTROBAN) 2 % ointment Use 2 g in the nose. (Patient not taking: Reported on 05/14/2023) metformin HCl (METFORMIN ORAL) Take 500 mg [...] Drug use: Never Review of Systems Constitutional: Positive for chills and fatigue. Negative for diaphoresis and fever. HENT: Negative. Eyes: Negative. Respiratory: Negative for cough, chest tightness, shortness of breath, wheezing and stridor. Cardiovascular: Negative for chest pain and palpitations. Gastrointestinal: Positive for diarrhea, nausea and vomiting. Negative for abdominal pain and constipation. Endocrine: Positive for polyuria. Genitourinary: Positive for menstrual problem. Negative for decreased urine volume, difficulty urinating, dysuria, flank pain, frequency, hematuria, pelvic pain, urgency, vaginal bleeding, vaginal discharge and vaginal pain. Late menstrual period Musculoskeletal: Negative for arthralgias, back pain and myalgias. Neurological: Negative for dizziness, light-headedness and headaches. Objective BP 118/80 Pulse 91 Temp 36.8 ?C (98.3 ?F) (Tympanic) Resp 18 Wt 116 kg (255 lb 11.7 oz) LMP 05/02/2023 (Approximate) SpO2 97% BMI 41.28 kg/m? Physical Exam Vitals and nursing note reviewed. Constitutional: General: She is not in acute distress. Appearance: Normal appearance. She is obese. She is not toxic-appearing. HENT: Head: Normocephalic and atraumat (more content not included)...[facility]06-10-2024 History of Present illness Narrative* Tiki Jefferson APRN.RETOUCHER PHOTOENGRAVING - 08/16/2023 6:09 PM EDT This note was created using Fanmoderiter. Subjective Fred Melgoza is a 23 year old female. Fred Melgoza is a 23 year old female with a PMH of T1DM, asthma, presenting with a possible . She is here today with her . He states that they have had 3 positive at-home tests since last night. She had noticed her menstrual cycle was late so that's why she decided to take one. Her LMP was July 08. Her last gynecology appointment was some time in the last year. She has a scheduled gynecology appointment on the this month. They had unprotected intercourse, and had been trying to get for years. She denies urinary frequency, urgency and burning, but states she is urinating more than usual and doesn't know if it is related to her T1DM. She denies vaginal discharge. Endorses n/v/d, but states she has gallbladder issues that might cause that. Her also states that she has been increasingly florentino, and that he noticed her abdomen was firmlast week. Pertinent negatives: -abdominal pain -back pain -diaphoresis -fever -shortness of breath -chest pain -pelvic pain -vaginal pain -urinary frequency/urgency -vaginal discharge Pertinent positives: +polyuria +n/v/d +chills +fatigue The history is provided by the patient and the spouse. PAST MEDICAL HISTORY Diagnosis Date Asthma Depression Diabetes mellitus (HCC) Generalized anxiety disorder No past surgical history on file. ALLERGIES Norethindrone Ac-Eth Estradiol, Norgestimate-Ethinyl Estradiol, Prednisone, and Zyrtec [Cetirizine] MEDICATIONS albuterol HFA (PROVENTIL HFA, VENTOLIN HFA) 90 mcg/actuation inhaler Inhale 2 Puffs as instructed every 6 hours as needed. omeprazole (PRILOSEC) 20 mg capsule take 1 capsule by mouth daily in the morning ondansetron orally disintegrating (ZOFRAN ODT) 4 mg disintegrating tablet Take by mouth. SUMAtriptan (IMITREX) 50 mg tablet TAKE 1 TABLET BY MOUTH NEEDED FOR MIGRAINE HEADACHE; MAY REPEAT AFTER 2 HOURS FREESTYLE SHOBHA 2 SENSOR kit glycopyrrolate (ROBINUL) 1 mg tablet Take 2 mg by mouth twice daily. TRULICITY 1.5 mg/0.5 mL pen injector Inject 3 mg subcutaneously one time a week. no.144-folic acid 400 mcg chew Take 1 tablet by mouth once daily. sodium chloride (SALINE MIST) 0.65 % nasal spray Use 2 Sprays in the nose two times a day as needed. (Patient not taking: Reported on 05/14/2023) azelastine 0.1% nasal spray Use 1 [place] in each nostril two times a day. (Patient not taking: Reported on 05/14/2023) fluticasone (FLONASE) 50 mcg/actuation nasal spray Use 2 Sprays in each nostril two times a day. Rinse mouth after use. (Patient not taking: Reported on 05/14/2023) LIDOCAINE VISCOUS 2 % solution Take 15 mL by mouth three times a day as needed. (Patient not taking: Reported on 05/14/2023) JARDIANCE 10 mg tablet Take 1 tablet by mouth every afternoon. (Patient not taking: Reported on 05/14/2023) mupirocin (BACTROBAN) 2 % ointment Use 2 g in the nose. (Patient not taking: Reported on 05/14/2023) metformin HCl (METFORMIN ORAL) Take 500 mg [...] Drug use: Never Review of Systems Constitutional: Positive for chills and fatigue. Negative for diaphoresis and fever. HENT: Negative. Eyes: Negative. Respiratory: Negative for cough, chest tightness, shortness of breath, wheezing and stridor. Cardiovascular: Negative for chest pain and palpitations. Gastrointestinal: Positive for diarrhea, nausea and vomiting. Negative for abdominal pain and constipation. Endocrine: Positive for polyuria. Genitourinary: Positive for menstrual problem. Negative for decreased urine volume, difficulty urinating, dysuria, flank pain, frequency, hematuria, pelvic pain, urgency, vaginal bleeding, vaginal discharge and vaginal pain. Late menstrual period Musculoskeletal: Negative for arthralgias, back pain and myalgias. Neurological: Negative for dizziness, light-headedness and headaches. Objective BP 118/80 Pulse 91 Temp 36.8 C (98.3 F) (Tympanic) Resp 18 Wt 116 kg (255 lb 11.7 oz) LMP05/02/2023 (Approximate) SpO2 97% BMI 41.28 kg/m Physical Exam Vitals and nursing note reviewed. Constitutional: General: She is not in acute distress. Appearance: Normal appearance. She is obese. She is not toxic-appearing. HENT: Head: Normocephalic and atraumatic. Cardiovascular: Rate and Rhythm: Normal rate and regular rhythm. Heart sounds: Normal heart sounds. No murmur heard. No friction rub. No gallop. Pulmonary: Effort: Pulmonary effort is normal. No respiratory distress. Breath sounds: Normal breath sounds. No stridor. No wheezing, rhonchi or rales. Chest: Chest wall: No tenderness. Abdominal: General: Bowel sounds are normal. There is no distension. There are no signs of injury. Palpations: Abdomen is soft. There is no mass. Tenderness: There is no abdominal tenderness. There is no right CVA tenderness, left CVA tenderness, guarding or rebound. Negative signs include Mendoza's sign, Rovsing's sign and McBurney's sign. Hernia: No hernia is present. Comments: Negative Mendoza's, McBurney's, Rovsing's sign. No CVA tenderness. Musculoskeletal: General: Normal range of motion. Cervical back: No tenderness. Lymphadenopathy: Cervical: No cervical adenopathy. Skin: General: Skin is warm and dry. Neurological: Mental Status: She is alert. Psychiatric: Mood and Affect: Mood normal. Behavior: Behavior normal. Thought Content: Thought content normal. Judgment: Judgment normal. Assessment and Plan ASSESSMENT/PLAN: 1. confirmed by positive urine test - ICD9: V72.42, ICD10: Z32.01 3 positive at-home tests. +nausea . LMP 07/08. Urine hcg positive for . Rx vitamins once daily. Recommend no drinking, smoking, illegal drugs. See gyno for appointment Helen Hansen TEACHING PROVIDER (Physician/PA/POWERHOUSE MECHANIC APPRENTICE) NOTE OF PERSONAL INVOLVEMENT IN CARE: I have personally seen and examined the patient and performed the medical decision-making components. I have reviewed the Advanced Practice Registered Nurse (POWERHOUSE MECHANIC APPRENTICE) Student's documentation and verified the findings in the note as written. Any additions or changes are noted in bold/italics. Signature: Tiki Jefferson Date: 08/16/2023 Time: 6:53 PM documented in this encounterTrumbull [facility]06-10-2024 Instructions* Patient Instructions* Tiki Jefferson APRN.RETOUCHER PHOTOENGRAVING - 08/16/2023 6:04 PM EDT [facility] [place] [id number] [place] [id number] Emergency Department Diagnosis: Assessment : Your exam shows that you are . If you have not made arrangements with a doctor or clinic for care, we recommend that you call today for an appointment. An early checkup on your weight, blood pressure, development, and nutrition are very important, even if you have had normal pregnancies in the past. Vitamin and iron supplements are also recommended. Some symptoms of such as morning sickness, breast tenderness, and fatigue are normal. Take extra time for rest when you feel tired. Most physical activities (except rough contact sports) are allowed if you are not having any problems. You can safely have sex until shortly before the baby is born if you don t have any problems with pain in the abdomen or bleeding from the vagina, but youshouldn t douche. To prevent swelling, keep your legs elevated as much as possible and don t sit with them crossed. Regular exercise will help you feel well and condition you for the physical stress of and delivery. Ask your doctor about the best type of exercises to do. Be sure to avoid getting dehydrated, and never exercise in hot conditions. Do not use a hot tub while you are . Taking 400-800 mcg of folic acid daily in the first weeks of has been shown to decrease the risk of neural tube defects in infants. All other drugs should be avoided, even non-prescription ones, unless approved by your doctor. Tobacco, marijuana, alcohol, cocaine, and amphetamines are especially harmful to your unborn baby. If you have a drug problem, tell your doctor and get help as soon as possible. Call your doctor or the emergency room if you have any of these symptoms: Abdominal pain or urinary burning. Vaginal bleeding or heavy discharge. Repeated vomiting and dehydration. Fever or chills. documented in this encounterTrumbull [facility]04-26-2024 Telephone encounter Note * Telephone Encounter - Tiki Peguero LPN - 07/02/2023 4:16 PM EDT Pt read message at 10:44 AM on 07/02/2023, with no response. No appointment made at this time. Tiki Peguero LPN [facility]04-26-2024 Miscellaneous Notes* Telephone Encounter - Tiki Peguero LPN - 07/02/2023 4:16 PM EDT Pt read [facility] message at 10:44 AM on 07/02/2023, with no response. No appointment made at this time. Tiki Peguero LPN * Telephone Encounter - Loli Arreola LPN - 07/01/2023 5:51 PM EDT Referral received from [place] for Dx R41.3 other amnesia. Phone call placed unable to leave a message to schedule appointment. [place] active 01/2023 message sent , fwd to scheduling to assist patient. Loli Arreola LPN documented in this encounterTrumbull [facility] Center04-25-2024 Telephone encounter Note * Telephone Encounter - Loli Arreola LPN - 07/01/2023 5:51 PM EDT Referral received from [place] for Dx R41.3 other amnesia. Phone call placed unable to leave a message to schedule appointment. [facility] active 01/2023 message sent , fwd to scheduling to assist patient. Loli Arreola LPN [facility]04-15-2024 Procedure [facility]04-15-2024 Procedure [facility]03-08-2024 NoteHNO ID: [id number] Author: DAVID POWERS APRN.RETOUCHER PHOTOENGRAVING Service: ? Author Type: Nurse Practitioner Type: [...] needed. azelastine 0.1% nasal spray Use 1 [place] in each nostril two times a day. [...] HEADACHE; MAY REPEAT AFTER 2 HOURS FREESTYLE SHOBHA 2 SENSOR kit mupirocin (BACTROBAN) 2 % [...] exam. Patient was educat (more content not included)...[facility]03-08-2024 Telephone encounter Note* Telephone Encounter - Constantin Magaña RN - 05/14/2023 1:08 PM EST Images from the original note were not included. This nurse contacted patient to see what she is taking medication for and this was the response: Fred Melgzoa You5 minutes ago (1:02 PM) It's for my hygiene because it's really bad Thank you, Feel free to reach out if you need anything. Sincerely, Constantin Magaña [employer] combination teacher [phone] [address] [place] [address] [facility] [id number] Miscellaneous Notes* Telephone Encounter - Constantin Magaña RN - 05/14/2023 1:08 PM EST Images from the original note were not included. This nurse contacted patient to see what she is taking medication for and this was the response: Fred Melgoza You5 minutes ago (1:02 PM) It's for my hygiene because it's really bad Thank you, Feel free to reach out if you need anything. Sincerely, Constantin Magaña [employer]ulatory [employer] combination teacher [phone] [place] [address] * Telephone Encounter - Fifi Morales MD - 05/14/2023 12:51 PM EST Does she know why she is taking this medication? * Telephone Encounter - Kris Trevino MA - 05/12/2023 4:36 PM EST Called patient and he uses [facility]. * Telephone Encounter - Kris Trevino MA - 05/12/2023 1:06 PM EST [facility] for glycopyrrolate 2 mg tablet. documented in this encounterSBl[facility] Bl[facility] [id number] Telephone encounter Note* Telephone Encounter - Fifi Morales MD - 05/14/2023 12:51 PM EST Does she know why she is taking this medication? [facility] [id number] Telephone encounter Note* Telephone Encounter - Kris Trevino MA - 05/12/2023 4:36 PM EST Called patient and he uses [facility]. [facility] [id number] Telephone encounter Note* Telephone Encounter - Kris Trevino MA - 05/12/2023 1:06 PM EST [facility] faxed a refill request for glycopyrrolate 2 mg tablet. [facility] [id number] History of Present illness Narrative* Fifi Morales MD - 04/26/2023 3:00 PM EST Images from the original note were not included. Fifi Morales M.D. [facility] [address] [address] Assessments/Plan: 1. Memory impairment - [facility] Neurology - Comprehensive metabolic panel - TSH - Vitamin B12 - CBC 2. Mild persistent asthma with acute exacerbation - [facility] Pulmonary/Pulmonology Fred presents today with memory concerns. I have advised on metabolic and baseline testing. Referral to Neurology. I also advised on pulmonary follow up due to increased shortness of breath. Exam is unremarkable sono acute exacerbation. She has a allergy to prednisone. Not sure if she will have similar reaction to inhaled glucocorticosteroids. She was advised to continue with albuterol as needed. Follow up for Next scheduled follow-up. Reason for Appointment: Fred Melgoza is a 23 y.o. female who presents [...] breath. 18 g 3 Continuous Blood Gluc Transfer Man ([employer] Medical SystemsStyle Shobha 2 [place]) device 1 Units 4 times daily (before meals and nightly). 1 each 0 Continuous Blood Gluc Sensor (FreeStyle Shohba 2 Sensor) misc Change sensor every two [...] and phrases are mis-transcribed.) documented in this encounterSBlanchard Valley Health System Blanchard Valley [id number] Telephone encounter Note* Telephone Encounter - Estela Escalona - 04/06/2023 3:51 PM EST Name of caller: Fred Contact phone number: [phone] Relationship to Patient: patient Provider: Dr Morales Practice: Primary Care at [facility] Chief Complaint/Reason for Call: Patient called to follow up on medication request for dulaglutide (Trulicity) 3 MG/0.5ML solution pen-injector . Patient informed that her PCP usually has 24-48 business hours to approve medication for refill, and Dr Morales has not review request yet. Patient voiced understanding, and states that she would need order by next week-I. Best time of day caller can be reached: any Patient advised that office/PCP has 24-48 business hours to return their call: Yes [facility] [id number] Miscellaneous Notes* Telephone Encounter - Estela Escalona - 04/06/2023 3:51 PM EST Name of caller: Fred Contact phone number: [phone] Relationship to Patient: patient Provider: Dr Morales Practice: Primary Care at [facility] Chief Complaint/Reason for Call: Patient called to follow up on medication request for dulaglutide (Trulicity) 3 MG/0.5ML solution pen-injector . Patient informed that her PCP usually has 24-48 business hours to approve medication for refill, and Dr Morales has not review request yet. Patient voiced understanding, and states that she would need order by next week-I. Best time of day caller can be reached: any Patient advised that office/PCP has 24-48 business hours to return their call: Yes * Telephone Encounter - Lizz Palomino - 04/05/2023 2:04 PM EST Ordering provider: Andrew Date of last office visit: 02/26/23 Date [...] (see medication tab): 12/10/[address] [facility]01-29-2024 Telephone encounter Note* Telephone Encounter - Lizz Palomino - 04/05/2023 2:04 PM EST Ordering provider: Andrew Date of last office visit: 02/26/23 Date [...] of last refill (see medication tab): 12/10/22 [facility] [id number] History of Present illness Narrative* Constantin Magaña RN - 03/29/2023 9:14 AM EST The patient has been holding the below medications for one week as ordered by Dr. Morales below: Dr Morales: She has apparently been having low blood sugars. She can HOLD the Januvia and the Trulicity. Resume the Trulicity in one week if her symptoms resolve The patient wants to know whether should start Januvia again with her Trulicity. The patient statedhas been feeling ok. Last recorded blood sugars [...] reach out if you need anything. Sincerely, Constantin Magaña [employer]ulatory high school combination teacher [phone] [place] [address] * Fifi Morales MD - 03/29/2023 9:14 AM EST In the message above it says should she start Januvia again with her Trulicity-- so she has stopped BOTH? If she has STOPPED both she can resume her Trulicity only. If she has been on the Trulicitybut stopped the Januvia only then she can HOLD the Januvia indefinitely. * Constantin Magaña RN - 03/29/2023 9:14 AM EST Patient advised to continue to hold the Januvia and restart Trulicity today. Patient aware and knows to call with any questions or concerns. documented in this encounterSBlanchard Valley Health System Blanch[facility] Valley [id number] Telephone encounter Note* Telephone Encounter - Nicole Corral MA - 03/22/2023 4:02 PM EST Called pt and she talked to constantin already. BS was at 67 [facility] [id number] Miscellaneous Notes* Telephone Encounter - Nicole Corral MA - 03/22/2023 4:02 PM EST Called pt and she talked to constantin already. BS was at 67 * Telephone Encounter - Darshana Cutler RN - 03/22/2023 1:02 PM EST S: Patient spoke with [facility] nurse regarding hypoglycemia. B: Onset of [...] taking two Glucose tablets, and a cookie atthis time. BS: 58 after 10 minutes. Patient encouraged to drink orange juice with sugar, or additional glucose tablets at this time. Patient states she wants to wait a little bit longer before tryingadditional intervention. Reports BS has been repeatedly dropping into the 50's throughout the day for a few weeks since starting prescribed Trulicity. Patient is taking SITagliptin (Januvia) 100 MG ta blet 1 tablet by mouth daily and dulaglutide (Trulicity) 3 MG/0.5ML solution pen-injector 3 mg under the skin one time per week (on Wednesdays per patient). R: Patient advised to go to ED at this time for evaluation. Patient requesting second opinion at this time. Office visit offered and declined for follow-up. multiple resaw operator provider, Dr. Morales messaged at this time. Per Dr. Morales, She is wearing a CGM correct? She can continue to monitor and eat a meal if she can. Repeat the BS in 30 min. HOLD the Trulicity on Wednesday. Patient reports wearing a CGM at this time. Patient advised, verbalized understanding, patient asking if she should still take Januvia daily. Patient advised to wait on hold while this RN speaks to Dr. Morales in regard to further instructions, patient requesting a call back, does not want to wait on hold. Call back number verified prior to disconnecting with patient. Per Dr. Morales, She can HOLD the Januvia and the Trulicity. Resume the Trulicity in one week if her symptoms resolve. Attempted to contact patient and patient's spouse to advise of Dr. Morales orders six times [address] success. [address] Morales and Ralph Magaña notified at this time of inability to contact patient with further orders. Per Ralph Magaña, I will contact too! Please reach out to patient and advise. Reason for Disposition Low blood glucose (< 70 mg/dL or 3.9 mmol/L) persists > 30 minutes AND using low blood sugar Care Advice Protocols used: Diabetes - Low Blood Kbzjw-LXALE-TE documented in this [facility]01-15-2024 Telephone encounter Note* Telephone Encounter - Darshana Cutler RN - 03/22/2023 1:02 PM EST S: Patient spoke with [facility] nurse regarding [...] taking two Glucose tablets, and a cookie atthis time. BS: 58 after 10 minutes. Patient encouraged to drink orange juice with sugar, or additional glucose tablets at this time. Patient states she wants to wait a little bit longer before tryingadditional intervention. Reports BS has been repeatedly dropping into the 50's throughout the day for a few weeks since starting prescribed Trulicity. Patient is taking SITagliptin (Januvia) 100 MG ta blet 1 tablet by mouth daily and dulaglutide (Trulicity) 3 MG/0.5ML solution pen-injector 3 mg under the skin one time per week (on Wednesdays per patient). R: Patient advised to go to ED at this time for evaluation. Patient requesting second opinion at this time. Office visit offered and declined for follow-up. multiple resaw operator provider, Dr. Morales messaged at this time. Per Dr. Morales, She is wearing a CGM correct? She can continue to monitor and eat a meal if she can. Repeat the BS in 30 min. HOLD the Trulicity on Wednesday. Patient reports wearing a CGM at this time. Patient advised, verbalized understanding, patient asking if she should still take Januvia daily. Patient advised to wait on hold while this RN speaks to Dr. Morales in regard to further instructions, patient requesting a call back, does not want to wait on hold. Call back number verified prior to disconnecting with patient. Per Dr. Morales, She can HOLD the Januvia and the Trulicity. Resume the Trulicity in one week if her symptoms resolve. Attempted to contact patient and patient's spouse to advise of Dr. Morales orders six times [address] success[address] Morales and Ralph Magaña notified at this time of inability to contact patient with further orders. Per Ralph Magaña, I will contact too! Please reach out to patient and advise. Reason for Disposition Low blood glucose (< 70 mg/dL or 3.9 mmol/L) persists > 30 minutes AND using low blood sugar Care Advice Protocols used: Diabetes - Low Blood Glwam-MFNJQ-OJ [facility] [id number] Evaluation + Plan note* Assessment & Plan Note - Fifi Morales MD - 03/03/2023 7:47 PM ESTAssociated Problem(s): Class 2 severe obesity due to excess calories with serious comorbidity and body mass index (BMI) of 38.0 to 38.9 in adult Advised on choices to make with experiencing the dietary suppression with the Trulcity. Increase protein and lower carbohydrates. [facility] [id number] Miscellaneous Notes* Assessment & Plan Note - Fifi Morales MD - 03/03/2023 7:47 PM ESTAssociated Problem(s): Class 2 severe obesity due to excess calories with serious comorbidity and body mass index (BMI) of 38.0 to 38.9 in adult Advised on choices to make with experiencing the dietary suppression with the Trulcity. Increase protein and lower carbohydrates. * Assessment & Plan Note - Fifi Morales MD - 03/03/2023 7:46 PM EST Associated Problem(s): Type 2 diabetes mellitus without complication, without long-term current useof insulin ([facility]) ([facility]) 6.2% A1c. Improved greatly. - Continue with the Januvia 100 mg daily - Trulicity 3 mg weekly documented in this [facility]12-27-2023 Evaluation + Plan note* Assessment & Plan Note - Fifi Morales MD - 03/03/2023 7:46 PM EST Associated Problem(s): Type 2 diabetes mellitus without complication, without long-term current useof insulin ([facility]) ([facility]) 6.2% A1c. Improved greatly. - Continue with the Januvia 100 mg daily - Trulicity 3 mg weekly [facility] [id number] History of Present illness Narrative* Fifi Morales MD - 02/26/2023 1:40 PM EST Images from the original note were not included. Fifi Morales M.D. [facility] [address] [address] Assessments/Plan: 1. Type 2 diabetes mellitus without complication, without long-term current use of insulin ([facility]) ([facility]) Assessment & Plan: 6.2% A1c. Improved greatly. - Continue with the Januvia 100 mg daily - Trulicity 3 mg weekly Orders: - AMB POC HEMOGLOBIN A1C 2. Class 2 severe obesity due to excess calories with serious comorbidity and body mass index (BMI)of 38.0 to 38.9 in adult Assessment & Plan: Advised on choices to make with experiencing the dietary suppression with the Trulcity. Increase protein and lower carbohydrates. Follow up in about 3 months (around 05/28/2023) for f/u diabetes. Reason for Appointment: Fred Melgoza is a 23 y.o. female who presents today for: Chief Complaint Patient presents with Follow-up 3 months follow up for DM. Subjective Diabetes She presents for her follow-up diabetic visit. She has type 2 diabetes mellitus. Her disease coursehas been improving. There are no hypoglycemic associated symptoms. There are no diabetic associatedsymptoms. There are no hypoglycemic complications. Symptoms are [...] breath. 18 g 3 Continuous Blood Gluc Transfer Man (FreeStyle Shobha 2 [place]) device 1 Units 4 times daily (before meals and nightly). 1 each 0 Continuous Blood Gluc Sensor (FreeStyle Shobha 2 Sensor) misc Change sensor every two [...] % external solution 1 application at bedtime Strength:20 % 60 mL 3 [DISCONTINUED] Blood Glucose [...] and phrases are mis-transcribed.) documented in this [facility]11-28-2023 Telephone encounter Note* Telephone Encounter - Yuridia Caal - 02/02/2023 1:08 PM EST Patient is out of medication. Patient stated she is having some wheezing from being out of inhaler,advised patient to speak with triage nurse, patient [...] medication tab): 02.13.2022 Updated/Validated preferred pharmacy: Yes [facility] - [place], [place] - [address] Patient instructed to contact the pharmacy prior to picking up the medication: Yes [facility] [id number] Miscellaneous Notes* Telephone Encounter - Yuridia Caal - 02/02/2023 1:08 PM EST Patient is out of medication. Patient stated she is having some wheezing from being out of inhaler,advised patient to speak with triage nurse, patient [...] medication tab): 02.13.2022 Updated/Validated preferred pharmacy: Yes [facility] - [place], [place] - [address] Patient instructed to contact the pharmacy prior to picking up the medication: Yes documented in this encounterSBlanch[facility] Blanchard Valley [id number] Telephone encounter Note* Telephone Encounter - Fifi Morales MD - 01/21/2023 4:42 PM EST Messaged patient already and copied Constantin [place] [id number] Miscellaneous Notes* Telephone Encounter - Fifi Morales MD - 01/21/2023 4:42 PM EST Messaged patient already and copied Constantin * Telephone Encounter - Victoria Carias MA - 01/21/2023 4:27 PM EST Just so you know, I also sent a similar message from patient advice. * Telephone Encounter - Carola Go RN - 01/21/2023 4:01 PM EST S: Patient spoke with [facility] nurse regarding UTI and medication question B: Onset of symptoms/concern 2 months A: Patient is questioning if she should stop taking Jardiance due having almost a constant UTI. Shebelieves that Jardiance to be causing her urinary symptoms. Currently patient is frequency, burningwith urination, and she is able to get [...] than usual (i.e., frequency) Protocols used: Urinary Obkurpjn-QICRR-PT documented in this encounterSBlanchard Valley Health [facility] Blanchard Valley HospitalKnujye21-21-9278 Telephone encounter Note* Telephone Encounter - Victoria Carias MA - 01/21/2023 4:27 PM EST Just so you know, I also sent a similar message from patient advice. [facility] [id number] Telephone encounter Note* Telephone Encounter - Carola Go RN - 01/21/2023 4:01 PM EST S: Patient spoke with [facility] nurse regarding UTI and medication question B: Onset of symptoms/concern 2 months A: Patient is questioning if she should stop taking Jardiance due having almost a constant UTI. Shebelieves that Jardiance to be causing her urinary symptoms. Currently patient is frequency, burningwith urination, and she is able to get [...] than usual (i.e., frequency) Protocols used: Urinary Sxatmexr-VJJPX-NM [facility] [id number] Miscellaneous Notes* Telephone Encounter - Clemencia Yoder - 01/11/2023 8:58 AM EST Patient given results and verbalized understanding of instructions given. Clemencia Yoder * Telephone Encounter - Wendie Mathews LPN - 01/09/2023 10:22 AM EDT Left another patient to return call for results and recommendations.Wendie Mathews LPN * Telephone Encounter - Tiki Jefferson APRN.CNP - 01/09/2023 9:45 AM EDT In addition to initial phone encounter and results, patient urine culture has resulted. She is having bacterial growth. The ATB, Macrobid, she was prescribed on her initial visit is appropriate and she needs to complete. * Telephone Encounter - Maribel Arreola LPN - 01/08/2023 1:21 PM EDT Left a message for pt to call the office and ask to speak to a nurse. Maribel Arreola LPN * Telephone Encounter - Marjorie Joshi PA-C - 01/08/2023 7:17 AM EDT Please call and let patient know she [...] is not back yet. documented in this [facility]Tr[facility]10-18-2023 History of Present illness Narrative* Tia Harding APRN.EVANS - 12/23/2022 6:21 PM EDT CC: Patient presents with: Cough: Cough, congestion, drainage and ST x 3 days HPI: Fred Melgoza is a 22 year old female who [...] needed. azelastine 0.1% nasal spray Use 1 [place] in each nostril two times a day. [...] by mouth every 12 (twelve) hours. FREESTYLE SHOBHA 2 SENSOR kit mupirocin (BACTROBAN) 2 % [...] Patient agreeable to treatment plan. Tia Harding APRN.RETOUCHER PHOTOENGRAVING documented in this encounterTrumbull [facility] Center10-10-2023 Telephone encounter Note * Telephone Encounter - Victoria Carias MA - 12/15/2022 11:34 AM EDT Left a detail message for patient though Voice mail. Pt was advise to call back for further. Pleaserelay the message. [facility] [id number] Miscellaneous Notes* Telephone Encounter - Victoria Carias MA - 12/15/2022 11:34 AM EDT Left a detail message for patient though Voice mail. Pt was advise to call back for further. Pleaserelay the message. * Telephone Encounter - Fifi Morales MD - 12/14/2022 3:27 PM EDT Instruct the patient that it would be beneficial to find a PCP in the area in which she lives. She can rack up a hefty bill with continuous ED visits. * Telephone Encounter - Victoria Carias MA - 12/14/2022 2:04 PM EDT FYI. * Telephone Encounter - Maureen Mehta RN - 12/14/2022 9:56 AM EDT S: Patient spoke with [facility] nurse regarding cough worsening, URI B: Onset of symptoms/concern 3 weeks A: Patient states she has a dry cough. Patient also has a sore throat. Patient denies ear pain, headache, or fever. Patient is eating and drinking as normal. In [place] emergency 2 weeks ago for the same symptoms, diagnosed with URI, and prescribed cough medication; CT scan done. Patient has not taken a COVID test. Patient states the prescribed cough medication is helping. Patient states she cannot come to [place] for an appointment. R: Patient advised to go back to [place] ER for further testing and treatment. Patient understands care advice. No further needs at this time. Patient instructed to call back with new or worsening symptoms. Reason for Disposition Continuous (nonstop) coughing interferes with work or school and no improvement using cough treatment per Care Advice Protocols used: Bxkax-XLMGE-QI documented in this [facility]10-09-2023 Telephone encounter Note* Telephone Encounter - Fifi Morales MD - 12/14/2022 3:27 PM EDT Instruct the patient that it would be beneficial to find a PCP in the area in which she lives. She can rack up a hefty bill with continuous ED visits. [facility] [id number] Telephone encounter Note* Telephone Encounter - Victoria Carias MA - 12/14/2022 2:04 PM EDT FYI. [place] [id number] Telephone encounter Note* Telephone Encounter - Maureen Mehta RN - 12/14/2022 9:56 AM EDT S: Patient spoke with [facility] nurse regarding cough worsening, URI B: Onset of symptoms/concern 3 weeks A: Patient states she has a dry cough. Patient also has a sore throat. Patient denies ear pain, headache, or fever. Patient is eating and drinking as normal. In [place] emergency 2 weeks ago for the same symptoms, diagnosed with URI, and prescribed cough medication; CT scan done. Patient has not taken a COVID test. Patient states the prescribed cough medication is helping. Patient states she cannot come to [place] for an appointment. R: Patient advised to go back to [place] ER for further testing and treatment. Patient understands care advice. No further needs at this time. Patient instructed to call back with new or worsening symptoms. Reason for Disposition Continuous (nonstop) coughing interferes with work or school and no improvement using cough treatment per Care Advice Protocols used: Rkgih-FXZDU-XV [facility] [id number] Telephone encounter Note* Telephone Encounter - Katty Baer - 12/10/2022 9:13 AM EDT Name of caller: Fred Melgoza Contact phone number: [phone] Relationship to Patient: patient Provider: Dr. Morales Practice: [facility] Chief Complaint/Reason for Call: Caller states her medications have been sent to various pharmaciesand she would like new scripts sent to pharmacy on file for SUMAtriptan (Imitrex) 50 MG tablet, dulaglutide (Trulicity) 3 MG/0.5ML solution pen-injector and Continuous Blood Gluc Sensor. Please advise. Thank you Best time of day caller can be reached: Any Patient advised that office/PCP has 24-48 business hours to return their call: Yes [facility] [id number] Miscellaneous Notes* Telephone Encounter - Katty Baer - 12/10/2022 9:13 AM EDT Name of caller: Fred Devinemisterbnb Contact phone number: [phone] Relationship to Patient: patient Provider: Dr. Morales Practice: [facility] Chief Complaint/Reason for Call: Caller states her medications have been sent to various pharmaciesand she would like new scripts sent to pharmacy on file for SUMAtriptan (Imitrex) 50 MG tablet, dulaglutide (Trulicity) 3 MG/0.5ML solution pen-injector and Continuous Blood Gluc Sensor. Please advise. Thank you Best time of day caller can be reached: Any Patient advised that office/PCP has 24-48 business hours to return their call: Yes documented in this [facility]09-28-2023 History of Present illness Narrative* David Powers APRN.RETOUCHER [employer]OTOENGRAVING - 12/03/2022 2:11 PM EDT Subjective HPI Nontoxic female presents urgent care [...] by mouth every 12 (twelve) hours. FREESTYLE SHOBHA [address] (PROTONIX) 40 [...] Referred to ED. Will be seen at [facility]. David Powers APRN.RETOUCHER PHOTOENGRAVING [facility] Telephone encounter Note * Telephone Encounter - Fifi Morales MD - 12/03/2022 2:09 PM EDT Noted. [facility] [id number] Miscellaneous Notes* Telephone Encounter - Fifi Morales MD - 12/03/2022 2:09 PM EDT Noted. * Telephone Encounter - Victoria Carias MA - 12/03/2022 1:51 PM EDT FYI. * Telephone Encounter - Antonieta Simpson RN - 12/03/2022 12:52 PM EDT S: Patient spoke with [facility] nurse regarding [...] test for Covid. Pt is unsure if vo miting is due to new medication - Jardience or from antibiotic that she is on for UTI - doesn't know the name of the Rx. Offered appt for tomorrow but pt states she is going to now near her - she lives in [place]. R: Will send message to office to [...] prefers to sit, cannot lie down flat, speaksin phrases, mild retractions, audible wheezing, pulse 100-120. - SEVERE: Very SOB at rest, speaks in single words, struggling to breathe, sitting hunched forward,retractions, pulse > 120 Asthma - SOB at [...] (e.g., travel history, exposures) No Protocols used: [id number] documented in this [facility]09-28-2023 Discharge summary Author Juan Grimm [facility] December 04, 2022 12:17am Note Date/Time December 03, 2022 11:07pm [facility] Medical Records Department [facility] [place] [address] Emergency Department Summary 12/03/22 MR#: [id number] Acct: [id number] Name: FRED MELGOZA Rep #:[id number] : 2000 22 From: Juan Grimm DO PCP: NOT,DEFINED Status:REG ER Location: ED HPI History of Present Illness Chief Complaint: General Illness Informant: patient Narrative Narrative: Patient is a 22-year-old female with past medical history of diabetes. She states for the past 1 to 2 days she has had congestion drainage and cough. She denies any known sick contacts or fevers or chills. She also notes that she hashad pain in her right upper abdomen and has had bouts of vomiting that occurred 10 to 15 minutes after eating. She went to an urgent care secondary to the symptoms and there was concern this could be gallbladder related and therefore patient was sent to the ER for evaluation. [facility] Medical History Asthma CPAP (continuous positive airway pressure) dependence Diabetes GERD (gastroesophageal reflux disease) Sleep apnea Home Medications albuterol sulfate 90 mcg/actuation aerosol inhaler 2 puff inhalation Q6H PRN wheezing 12/03/22 [History Last Taken Unknown] cephalexin 500 mg capsule mg 12/03/22 [History Last Taken Unknown] dulaglutide 3 mg/0.5 mL subcutaneous pen injector (Trulicity) 3 mg subcut .weekly 12/03/22 [History Last Taken Unknown] empagliflozin 10 mg tablet (Jardiance) 10 mg PO DAILY 12/03/22 [History Last Taken Unknown] glycopyrrolate 2 mg tablet 2 mg PO DAILY 12/03/22 [History Last Taken Unknown] benzonatate 200 mg capsule 200 mg PO TID PRN cough #30 caps 12/04/22 [Rx Last Taken Unknown] hydrocodone-acetaminophen 5-325mg 5mg-325mg 1 tab PO Q6H PRN PRN Pain 3 days #12TABLETS 12/04/22 [Rx Last Taken Unknown] metoclopramide HCl 10 mg tablet (Reglan) 10 mg PO 4X/DAY PRN PRN nausea and vomiting #40 tabs 12/04/22 [Rx Last Taken Unknown] Allergy/AdvReac Type Severity Reaction Status Date / Time cetirizine [From [facility]] Allergy Severe Angioedema Verified 12/03/22 21:55 CONTROLL Allergy Intermediate Swelling Uncoded 12/03/22 21:55 Social History Smoking Status: Never smoker ROS ROS ED Constitutional Constitutional ED: Denies chills or fever(s) Eyes Eyes: Denies change in vision ENT ENT ED: Reports rhinorrhea and sore throat Cardiovascular Cardiovascular: Denies chest pain Respiratory/Chest Respiratory/Chest: Reports cough; Denies dyspnea Gastrointestinal Gastrointestinal: Reports abdominal pain, nausea and vomiting; Denies diarrhea Genitourinary Genitourinary ED: Denies dysuria or hematuria Musculoskeletal Musculoskeletal: Denies myalgias Integumentary Denies rash Neurologic Neurologic: Denies headache(s) Hematologic/Lymphatic Hematologic/Lymphatic: Denies easy bleeding or easy bruising EXAM Physical Exam Const Vital Signs: 12/03/22 21:52 12/03/22 22:09 Temperature 98.4 F Temperature Source Temporal Pulse Rate 97 Respiratory Rate 18 Respiratory Effort Normal Respiratory Pattern Normal Blood Pressure 149/98 H Blood Pressure Mean 115 Pulse Ox 97 Oxygen Delivery Method Room Air Positive well nourished, well developed and obese General Appearance ED: well developed Nutritional Appearance: obese HEENT HEENT Narrative: Bilateral TMs are retracted but show no secondary changes to suggest infection Nasal mucosa is hyperemic and boggy with enlarged inferior nasal turbinates There is cobblestoning the posterior pharynx consistent with sinus drainage without airway edema or compromise or secondary changes to suggest infection. Eyes PERRL and EOMs intact bilaterally General Eye ED: Negative for scleral icterus Neck supple Neck Narrative: No nuchal rigidity or meningeal signs noted Resp normal respiratory effort and clear to auscultation bilaterally Cardio regular rate and regular rhythm Rate: other Other Details: Radial and carotid pulses are equal and symmetric GI non-distended GI Narrative: Abdomen is obese soft and nondistended with normal active bowel sounds. There is pain with palpation in the mid epigastric and right upper quadrant region without voluntary guarding or rigidity. Negative Mendoza sign. No voluntary guarding or rigidity. No pulsatile mass. No obvious hernia palpated. Auscultation: normoactive bowel sounds Palpation: soft Extremity normal to inspection Extremity Narrative: No asymmetric edema no pitting edema negative Homans' sign bilaterally Neuro oriented x3 and CN's II-XII intact bilaterally Sensorium / Orientation: alert Psych mental status grossly normal Skin no rashes or lesions noted General Skin Exam: Negative for jaundice MDM MDM MDM Narrative Medical decision making narrative: Patient presented to the ER hypertensive but otherwise with stable vitals. She reported congestion drainage and cough and differential diagnosis for this is viral upper respiratory tract infection versus pneumonia. However she also reported she has an right upper quadrant abdominal pain and bouts of vomiting. This could be related to a viral URI but also pancreatitis or biliary colic is apossibility and therefore basic labs with a chest x-ray and a right upper quadrant ultrasound were obtained. Patient's chest x-ray revealed no obvious infiltrate. Labs show no leukocytosis or left shift her liver enzymes and lipase are normal. There are no laboratory studies to suggest DKA. Ultrasound did confirm cholelithiasis without signs of acute cholecystitis. On reevaluation the patient is resting comfortably and vitals remained stable. Therefore patient given symptomatic care for the viral upper respiratory tract infection and as she is not showing signs of acute cholecystitis I do not feel there is need for emergent general surgery consultation. Patient will be given their name for follow-up and be instructed on symptomatic care for both gallbladder dysfunction and URI. However at this time based on the fact that the pain has improved she has had no bouts of vomiting in the ER and vitals are stable and laboratory studies reveal no clinically significant findings she is safe for discharge. History & Record Review Discussion w/independent historian: Patient Lab Data Attestation: I reviewed the patient's lab results. Labs: Laboratory Results - last 24 hr 12/03/22 12/03/22 22:35 22:45 WBC 9.0 RBC 5.27 Hgb 13.5 Hct 42.6 MCV 80.8 L MCH 25.6 L MCHC 31.7 L RDW Std Deviation 41.9 RDW Coeff of Elmo 14.5 Plt Count 258 MPV 10.6 Immature Gran % (Auto) 0.200 Neut % (Auto) 42.3 L Lymph % (Auto) 48.6 H [place] % (Auto) 5.5 Eos % (Auto) 2.8 Baso % (Auto) 0.6 Absolute Neuts (auto) 3.8 Absolute Lymphs (auto) 4.38 Nucleated RBC % 0 Sodium 138 Potassium 3.4 L Chloride 108 H Carbon Dioxide 26.0 Anion Gap 4 L BUN 17 Creatinine 1.05 H Estim Creat Clear Calc 78.01 Est GFR (MDRD) Af Amer 83 Est GFR (MDRD) Non-Af 69 BUN/Creatinine Ratio 16.2 Glucose 95 Calcium 8.9 Total Bilirubin 0.60 Direct Bilirubin 0.16 AST 16 ALT 32 Alkaline Phosphatase 75 Total Protein 7.8 Albumin 3.9 Globulin 3.9 Lipase 28 Urine Color Yellow Urine Clarity Clear Urine pH 5.0 Ur Specific [place] 1.015 Urine Protein Negative Urine Glucose (UA) 1000 H Urine Ketones 5 H Urine Occult Blood Negative Urine Nitrite Negative Urine Bilirubin Negative Urine Urobilinogen Normal Ur Leukocyte Esterase 25 H Urine RBC 0 SEEN Urine WBC 0-5 SEEN Ur Squamous Epith Cells 5-10 SEEN Urine Bacteria 0 SEEN Urine Mucus 0 SEEN Urine Test Negative Radiography Diagnostic Testing: Clinical Impression(s) from Imaging Studies Gallbladder Ultrasound 12/03/22 22:24 IMPRESSION: Possible mild diffuse fatty liver. Multiple gallstones with positive Mendoza sign, nonspecific in the absence of additional signs of acute cholecystitis. Remainder of the right upper quadrant ultrasound unremarkable. Electronically Signed: Fabiola Kaplan MD at 23:44 EDT Reading Location ID and State: [employer] / [place] , Service support , Chest X-Ray 12/03/22 22:45 IMPRESSION: Normal x-ray examination of the chest. Electronically Signed: Fabiola Kaplan MD at 23:17 EDT Reading Location ID and State: [id number] / [employer] , Service support , 2 view chest x-ray is interpreted by the emergency medicine physician reveals noacute infiltrate pneumothorax or pleural effusion Discharge Plan Triage Chief Complaint: General Illness ED Provider: Juan Grimm Dx/Rx/DC Orders Clinical Impression: Viral upper respiratory tract infection with cough, Cholelithiasis, Non-insulindependent diabetes mellitus Instructions: Gallstones Dc, ED URI, Viral, No Abx (Adult) Prescriptions: New metoclopramide HCl [Reglan] 10 mg tablet 10 mg PO 4X/DAY PRN PRN (Reason: nausea and vomiting) Qty: 40 0RF benzonatate 200 mg capsule 200 mg PO TID PRN (Reason: cough) Qty: 30 0RF hydrocodone-acetaminophen 5-325 mg tablet 1 tab PO Q6H PRN PRN (Reason: Pain) 3 Days Qty: 12 0RF No Action glycopyrrolate 2 mg tablet 2 mg PO DAILY Patient Comments: TAKE 1 TABLET BY MOUTH ONCE DAILY Jardiance 10 mg tablet 10 mg PO DAILY Patient Comments: TAKE 1 TABLET BY MOUTH ONCE DAILY Trulicity 3 mg/0.5 mL pen injector 3 mg SUBCUT .weekly Patient Comments: takes on wednesdays cephalexin 500 mg capsule Patient Comments: TAKE 1 CAPSULE BY MOUTH TWICE DAILY FOR 7 DAYS albuterol sulfate 90 mcg/actuation HFA aerosol inhaler 2 puff INHALATION Q6H PRN (Reason: wheezing) Patient Comments: inhale 2 puffs by mouth and INTO THE LUNGS every 6 hours if needed for wheezing Primary Care Provider: NOT,DEFINED Referrals: Rafael Bear MD [Med Staff - Active Staff] - NOT,DEFINED [Primary Care Provider] - Activity Restrictions/Additional Instructions: Please eat smaller portions more frequently and a bland diet to help prevent anypotential bouts of nausea and vomiting secondary to your ultrasound showing gallstones today. Follow-up with the general surgeon to discuss need for potential surgical removal of the gallbladder and return to the ER if you have intractable pain or develop a fever over 100.4. Disposition Disposition: Home, Self Care What to do if you have Problems For any increased pain, shortness of breath, bleeding, nausea or vomiting, chestpain, or any unexpected problems, contact your Primary Care Provider. Call [facility] ([phone]) or report to the closest Emergency Room. Call 911 if necessary. 12/04/22 001 <Electronically signed by Juan Grimm DO> Cosigner Signature (if applicable): CC: DEFINED NOT ~ Signed [facility] Work Phone: [phone] 911-942309-28-2023 Telephone encounter Note* Telephone Encounter - Victoria Carias MA - 12/03/2022 1:51 PM EDT FYI. [facility] [id number] Telephone encounter Note* Telephone Encounter - Antonieta Simpson RN - 12/03/2022 12:52 PM EDT S: Patient spoke with [facility] nurse regarding [...] test for Covid. Pt is unsure if vo miting is due to new medication - Jardience or from antibiotic that she is on for UTI - doesn't know the name of the Rx. Offered appt for tomorrow but pt states she is going to now near her - she lives in [place]. R: Will send message to office to [...] prefers to sit, cannot lie down flat, speaksin phrases, mild retractions, audible wheezing, pulse 100-120. - SEVERE: Very SOB at rest, speaks in single words, struggling to breathe, sitting hunched forward,retractions, pulse > 120 Asthma - SOB at [...] (e.g., travel history, exposures) No Protocols used: [id number] [id number] Evaluation + Plan note* Assessment & Plan Note - Fifi Morales MD - 11/25/2022 8:26 AM EDTAssociated Problem(s): AZAM (obstructive sleep apnea) Needs an updated sleep study. May be contributing to increased migraine headaches. [facility] [id number] Miscellaneous Notes* Assessment & Plan Note - Fifi Morales MD - 11/25/2022 8:26 AM EDTAssociated Problem(s): AZAM (obstructive sleep apnea) Needs an updated sleep study. May be contributing to increased migraine headaches. * Assessment & Plan Note - Fifi Morales MD - 11/25/2022 8:25 AM EDT Associated Problem(s): Migraine without aura and without status migrainosus, not intractable Added imitrex 50 mg to trial for her headaches. Headache diary and watching if any food triggers. * Assessment & Plan Note - Fifi Morales MD - 11/25/2022 8:21 AM EDT Associated Problem(s): Type 2 diabetes mellitus without complication, without long-term current useof insulin (CMS/HCC) ([facility]) a1c increased to 7.7%. Multifactorial. Reviewed the download of her CGM. She has had some increasedblood sugars more after lunch time. Patient not [...] for her blood sugars. documented in this [facility]SBl[facility] [id number] Evaluation + Plan note* Assessment & Plan Note - Fifi Morales MD - 11/25/2022 8:25 AM EDT Associated Problem(s): Migraine without aura and without status migrainosus, not intractable Added imitrex 50 mg to trial for her headaches. Headache diary and watching if any food triggers. [facility] [id number] Evaluation + Plan note* Assessment & Plan Note - Fifi Morales MD - 11/25/2022 8:21 AM EDTAssociated Problem(s): Type 2 diabetes mellitus without complication, without long-term current useof insulin (CMS/HCC) ([facility]) a1c increased to 7.7%. Multifactorial. Reviewed the download of her CGM. She has had some increasedblood sugars more after lunch time. Patient not [...] what it does for her blood sugars. [facility] [id number] History of Present illness Narrative* Fifi Morales MD - 11/18/2022 3:20 PM EDT Images from the original note were not included. Fifi Morales M.D. FAMILY MEDICINE COUNTS INCLUDE 234 BEDS AT THE [facility] AT [address] [facility] [address] Dept: [phone] Loc: [phone] Assessments/Plan: 1. Type 2 diabetes mellitus with hyperglycemia, without long-term current use of insulin ([facility]) ([facility]) Assessment & Plan: a1c increased to 7.7%. Multifactorial. Reviewed the download of her CGM. She has had some increasedblood sugars more after lunch time. Patient not [...] tablet (10 mg) by mouth daily., Starting 11/18/2022, Normal 2. Migraine without aura and without status migrainosus, not intractable Assessment & Plan: Added imitrex 50 mg to trial for her headaches. Headache diary and watching if any food triggers. Orders: - SUMAtriptan (Imitrex) 50 MG tablet; Take 1 tablet (50 mg) by mouth Once as needed for migraine. May repeat after 2 hours., Starting 11/18/2022, Until Karli 11/18/2023 at 2359, Normal 3. AZAM (obstructive sleep apnea) Assessment & Plan: Needs an updated sleep study. May be contributing to increased migraine headaches. Orders: - [facility] Sleep Medicine Follow up in about 3 months (around 02/17/2023) for f/u DMII. Reason for Appointment: Fred Melgoza is a 22 y.o. female who presents [...] a weight gain). Hypoglycemia complications include nocturnal hypo glycemia and required glucagon injection. Pertinent negatives for hypoglycemia complications include no blackouts, no hospitalization and no required assistance. Symptoms are stable. There are no diabetic complications. Risk factors for coronary artery disease include diabetes mellitus, obesity andfamily history. Current diabetic treatment includes oral agent (monotherapy) (Trulicity). She is compliant with treatment all of the time. Diabetic current diet: No particular diet. She participates in exercise intermittently. An YAYA inhibitor/angiotensin II receptor ronda is not being taken. Shedoes not see a manager convention.Eye exam is current. Review of Systems Constitutional: Negative for weight loss (more of a weight gain). Endocrine: Positive for polydipsia and polyphagia. Skin: Positive for pallor. Neurological: Positive for dizziness, tremors (and changes in vision when blood sugars are low) andheadaches. Negative for seizures and speech difficulty. Psychiatric/Behavioral: [...] E11.65 1 Units 0 Continuous Blood Gluc Transfer Man (FreeStyle Shobha 2 [place]) device 1 Units 4 times daily (before [...] and phrases are mis-transcribed.) documented in this [facility]08-25-2023 Emergency department Note* Tiki Matias RN - 10/30/2022 3:56 AM EDT This Rn went over discharge paperwork with the patient. Patient denies having any questions at thistime. Ambulated with steady gait, A&Ox4. Tiki Matias RN 10/30/22 0356 [facility] [id number] Emergency department Note* Tiki Matias RN - 10/30/2022 3:56 AM EDT This Rn went over discharge paperwork with the patient. Patient denies having any questions at thistime. Ambulated with steady gait, A&Ox4. Tiki Matias RN 10/30/22 0356 * Tiki Matias RN - 10/30/2022 3:23 AM EDT AMADO Morris at the bedside. Tiki Matias RN 10/30/22 0329 * Yolette Dunn RN - 10/29/2022 9:49 PM EDT Bed: 36 Expected date: 10/30/22 Expected time: Means of arrival: Comments: triage Yolette Dunn RN 10/30/[address] [facility]08-[facility] Hospital Discharge instructions* Discharge Instructions* AMADO Ramires - 10/30/2022 3:30 AM EDT Please follow-up with the dental clinic for further evaluation of your dental pain. Information is listed below. Please take antibiotic, Augmentin, as prescribed and take full course. Continue taking Tylenol/ibuprofen as needed for symptomatic relief of your dental pain. Return to the ED with any new or worsening symptoms. * Attachments The following attachments cannot be sent through Care Everywhere. * Dental Pain Discharge Instructions (Maldivian) documented in this [place] [id number] Emergency department Note* Tiki Matias RN - 10/30/2022 3:23 AM EDT AMADO Morris at the bedside. Tiki Matias RN 10/30/22 0329 [facility] [id number] Emergency department Note* Yolette Dunn RN - 10/29/2022 9:49 PM EDT Bed: 36 Expected date: 10/30/22 Expected time: Means of arrival: Comments: triage Yolette Dunn RN 10/30/22 0310 [facility] [id number] Miscellaneous Notes* Telephone Encounter - Lisa Mcfarland RN - 10/19/2022 1:23 PM EDT Aware of results and recommendations. Still having s/s so instructions for clean catch given. SLY [place] Urine results suggest contamination. If patient is still asymptomatic, she can repeat the culture with clean catch technique. Orders filed. Thanks! Efraín Wylie PA-C documented in this [facility]Tr[facility]07-[facility] Telephone encounter Note * Telephone Encounter - Victoria Carias MA - 09/17/2022 2:33 PM EDT Pt was informed. [facility] [id number] Miscellaneous Notes* Telephone Encounter - Victoria Carias MA - 09/17/2022 2:33 PM EDT Pt was informed. * Telephone Encounter - Michelle Torres - 09/17/2022 11:12 AM EDT Name of caller: Fred Contact phone number: [phone] Relationship to Patient: patient Provider: [facility] Practice: [facility] Chief Complaint/Reason for Call: please send scripts from 09/17 to [facility]. I did update the pharmacy. Best time of day caller can be reached: any Patient advised that office/PCP has 24-48 business hours to return their call: No documented in this encounterSBlanch[facility] Bl[facility] HospitalMtifwp41-89-9359 Telephone encounter Note* Telephone Encounter - Michelle Torres - 09/17/2022 11:12 AM EDT Name of caller: Fred Contact phone number: [phone] Relationship to Patient: patient Provider: Andrew Practice: [facility] Chief Complaint/Reason for Call: please send scripts from 09/17 to [facility]. I did update the pharmacy. Best time of day caller can be reached: any Patient advised that office/PCP has 24-48 business hours to return their call: No [facility] [id number] History of Present illness Narrative* Constantin Magaña, RN - 09/17/2022 8:13 AM EDT Patient brought in sensor which was a freestyle shobha 3 and the patient's smart phone ended up not being compatible with freestyle shobha 2 or 3 sensors. This nurse suggested that patient sign up for a phone through medicaid. This nurse started the process. Patient stated that just wanted to get a freestyle shobha 2 sensor and reader until upgrading phone next month. This nurse pended order for thefreestyle 2 reader and sensor for the physician. This nurse will help the patient with application once the patient receives the device from the pharmacy. Thank you, Feel free to reach out if you need anything. Sincerely, Constantin Magaña [employer] combination teacher [phone] [place] [address] * Fifi Morales MD - 09/17/2022 8:13 AM EDT Will insurance cover since she just had the shobha 3 ordered? documented [facility] this [facility]07-10-2023 Telephone encounter Note* Telephone Encounter - Victoria Carias MA - 09/14/2022 8:58 AM EDT Note. [facility] [id number] Miscellaneous Notes* Telephone Encounter - Victoria Carias MA - 09/14/2022 8:58 AM EDT Note. * Telephone Encounter - Jaymie Martínez - 09/14/2022 8:32 AM EDT Name of caller: Fred Contact phone number: [phone] Relationship to Patient: patient Provider: Dr Morales Practice: [facility] Chief Complaint/Reason for Call: only: Pt called to update pharmacy information to [facility]. No other questions/concerns. Best time of day caller can be reached: any Patient advised that office/PCP has 24-48 business hours to return their call: No documented in this [facility]07-10-2023 Telephone encounter Note* Telephone Encounter - Jaymie Martínez - 09/14/2022 8:32 AM EDT Name of caller: Fred Contact phone number: [phone] Relationship to Patient: patient Provider: Dr Morales Practice: [facility] Chief Complaint/Reason for Call: only: Pt called to update pharmacy information to [facility] on [address] No other questions/concerns. Best time of day caller can be reached: any Patient advised that office/PCP has 24-48 business hours to return their call: No [facility] [id number] Evaluation + Plan note* Assessment & Plan Note - Fifi Morales MD - 09/10/2022 12:27 PM EDTAssociated Problem(s): Class 3 severe obesity due to excess calories with serious comorbidity and body mass index (BMI) of 40.0 to 44.9 in adult ([facility]) See above. [facility] [id number] Miscellaneous Notes* Assessment & Plan Note - Fifi Morales MD - 09/10/2022 12:27 PM EDTAssociated Problem(s): Class 3 severe obesity due to excess calories with serious comorbidity and body mass index (BMI) of 40.0 to 44.9 in adult ([facility]) See above. * Assessment & Plan Note - Fifi Morales MD - 09/10/2022 12:24 PM EDT Associated Problem(s): Type 2 diabetes mellitus without complication, without long-term current useof insulin ([facility]) ([facility]) a1c is 7.0%. Controlled. Goal is <7%. [...] switching to ozempic or mounjaro injection. - Shobha 3 sensor also ordered and advised to return to have nurse assist with placement and function. documented in this [facility]07-06-2023 Evaluation + Plan note* Assessment & Plan Note - Fifi Morales MD - 09/10/2022 12:24 PM EDT Associated Problem(s): Type 2 diabetes mellitus without complication, without long-term current useof insulin (CMS/HCC) ([facility]) a1c is 7.0%. Controlled. Goal is <7%. [...] switching to ozempic or mounjaro injection. - Shobha 3 sensor also ordered and advised to return to have nurse assist with placement and function. [facility] [id number] History of Present illness Narrative* Fifi Morales MD - 09/10/2022 9:00 AM EDT Images from the original note were not included. Fifi Morales M.D. [facility] [address] [address] Dept: [phone] Loc: [phone] Assessments/Plan: 1. Type 2 diabetes mellitus without complication, without long-term current use of insulin (CMS/HCC) ([facility]) Assessment & Plan: a1c is 7.0%. Controlled. [...] switching to ozempic or mounjaro injection. - Shobha 3 sensor also ordered and advised to return to have nurse assist with placement and function. Orders: - AMB POC HEMOGLOBIN A1C - Continuous Blood Gluc Sensor (FreeStyle Shobha 3 Sensor) misc; 3 times daily., Starting Karli 09/10/2022, Normal 2. Class 3 severe obesity due to excess calories with serious comorbidity and body mass index (BMI)of 40.0 to 44.9 in adult (HCC) Assessment & Plan: See above. Follow up in about 3 months (around 12/11/2022) for f/u DM; follow up with nurse coordinator for DM and logs. Reason for Appointment: Fred Melgoza is a 22 y.o. female who presents [...] negatives for hypoglycemia complications include no blackouts, nohospitalization and no required assistance. Symptoms are stable. [...] being taken. She does not see a manager convention.Eye exam is current. Review of Systems Constitutional: Positive for fatigue. Negative for weight loss. Eyes: Negative for blurred vision. Cardiovascular: Negative for chest pain. Endocrine: Positive for polydipsia and polyuria. Negative for polyphagia. Skin: Positive for pallor. Neurological: Positive for dizziness, tremors (and changes in vision when blood sugars are low) andheadaches. Negative for seizures, speech difficulty and weakness. [...] Angioedema Other Other reaction(s): Anaphylaxis Objective Vitals: 07/06/23 0902 BP: 125/83 BP Location: Left arm Patient [...] and phrases are mis-transcribed.) documented in this [facility]06-24-2023 Hospital Discharge instructions* Discharge Instructions* Zahida Lion PA-C - 08/29/2022 8:08 PM [...] your medications as prescribed and follow-upas recommended. documented in this [facility]06-24-2023 Emergency department Note* Radha Wiggins RN - 08/29/2022 7:35 PM EDT Dark red urine noted in specimen cup. Zahida DIAZ notified Radha Wiggins RN 08/29/221934 [facility] [id number] Emergency department Note* Radha Wiggins RN - 08/29/2022 7:35 PM EDT Dark red urine noted in specimen cup. Zahida DIAZ notified Radha Wiggins RN 08/29/221934 * Kevin Aleman MD - 08/29/2022 5:04 PM EDT Emergency Department Encounter [facility] EMERGENCY DEPT Patient: Fred Melgoza : 2000 Date of Evaluation: 08/29/2022 ED Provider: KEVIN ALEMAN MD TRIAGE NOTE I saw the patient as the Clinician in Triage and performed a brief history and physical exam, established acuity, and ordered appropriate tests to develop basic plan of care. Patient will be seen by an ALEC, resident and/or my physician partner who will independently evaluate the patient. Please seesubsequent provider notes for further details and disposition Brief HPI: In brief, Fred Melgoza is a 22 y.o. female that presents for evaluation hematuria.Patient states she woke up today had a sense of urgency had a first morning urination and there wassome blood in it. No fever no abdominal pain no flank pain no vaginal discharge or bleeding. She had a sense of urgency later in the day and has had 2 more episodes of hematuria with urination. No fev er chills or sweats no abdominal pain or flank pain the rest of the day no nausea or vomiting. LMP couple weeks ago on time and normal. Focused Physical exam: ABDOMEN: Bowel sounds present, soft, nontender, no guarding rebound or rigidity, no palpable massesor aneurysm. BACK: No thoracic lumbar or flank [...] dictating provider for clarification KEVIN ALEMAN MD [employer] Kevin Aleman MD 08/29/[address] [facility]06-24-2023 Physician Emergency department Note* Kevin Aleman MD - 08/29/2022 5:04 PM EDT Emergency Department Encounter [facility] EMERGENCY DEPT Patient: Fred Melgoza : 2000 Date of Evaluation: 08/29/2022 ED Provider: KEVIN ALEMAN MD TRIAGE NOTE I saw the patient as the Clinician in Triage and performed a brief history and physical exam, established acuity, and ordered appropriate tests to develop basic plan of care. Patient will be seen by an ALEC, resident and/or my physician partner who will independently evaluate the patient. Please seesubsequent provider notes for further details and disposition Brief HPI: In brief, Fred Melgoza is a 22 y.o. female that presents for evaluation hematuria.Patient states she woke up today had a sense of urgency had a first morning urination and there wassome blood in it. No fever no abdominal pain no flank pain no vaginal discharge or bleeding. She had a sense of urgency later in the day and has had 2 more episodes of hematuria with urination. No fev er chills or sweats no abdominal pain or flank pain the rest of the day no nausea or vomiting. LMP couple weeks ago on time and normal. Focused Physical exam: ABDOMEN: Bowel sounds present, soft, nontender, no guarding rebound or rigidity, no palpable massesor aneurysm. BACK: No thoracic lumbar or flank [...] dictating provider for clarification KEVIN ALEMAN MD [employer] Kevin Aleman MD 08/29/22 1748 [facility] Phone: 1(219) 615-530204-06-2023 Telephone encounter Note* Telephone Encounter - Dorothea Sarah - 06/11/2022 1:10 PM EDT Name of caller: Fred Contact phone number: [phone] Relationship to Patient: Patient Provider: Dr. Morales Practice: [facility] Chief Complaint/Reason for Call: Patient states she was going to have a rx for a glucose meter sentto her pharmacy and it hasn't been sent yet. Please advise. [id number] - [place], [place] - [address] Best time of day caller can be reached: any Patient advised that office/PCP has 24-48 business hours to return their call: no [place] [id number] Miscellaneous Notes* Telephone Encounter - Dorothea Smith - 06/11/2022 1:10 PM EDT Name of caller: Fred Contact phone number: [phone] Relationship to Patient: Patient Provider: Dr. Morales Practice: [facility] Chief Complaint/Reason for Call: Patient states she was going to have a rx for a glucose meter sentto her pharmacy and it hasn't been sent yet. Please advise. [id number] - [place], [place] - [address] Best time of day caller can be reached: any Patient advised that office/PCP has 24-48 business hours to return their call: no documented in this [facility]SBl[facility] [id number] Evaluation + Plan note* Assessment & Plan Note - Fifi Morales MD - 06/09/2022 12:37 PM EDT Associated Problem(s): Class 3 severe obesity due to excess calories with serious comorbidity and body mass index (BMI) of 40.0 to 44.9 in adult ([facility]) Discussed changes in diet and exercise. Goal set for 10lbs in the next 3 months. [facility] [id number] Miscellaneous Notes* Assessment & Plan Note - Fifi Morales MD - 06/09/2022 12:37 PM EDTAssociated Problem(s): Class 3 severe obesity due to excess calories with serious comorbidity and body mass index (BMI) of 40.0 to 44.9 in adult ([facility]) Discussed changes in diet and exercise. Goal set for 10lbs in the next 3 months. * Assessment & Plan Note - Fifi Morales MD - 06/09/2022 12:35 PM EDT Associated Problem(s): Type 2 diabetes mellitus with hyperglycemia, without long-term current use of insulin ([facility]) ([facility]) a1c 6.7%->7.3%. Increased Trulicity 3 mg weekly. She has some doses of the 1.5 mg which I encouraged her to finish and then start the new dose. Continue the Metformin 1000 mg BID. - follow up in [address] in this [facility]04-04-2023 Evaluation + Plan note* Assessment & Plan Note - Fifi Morales MD - 06/09/2022 12:35 PM EDT Associated Problem(s): Type 2 diabetes mellitus with hyperglycemia, without long-term current use of insulin ([facility]) ([facility]) a1c 6.7%->7.3%. Increased Trulicity 3 mg weekly. She has some doses of the 1.5 mg which I encouraged her to finish and then start the new dose. Continue the Metformin 1000 mg BID. - follow up in 3 months. [facility] [id number] History of Present illness Narrative* Fifi Morales MD - 06/09/2022 9:00 AM EDT Images from the original note were not included. Fifi Morales M.D. FAMILY MEDICINE COUNTS INCLUDE 234 BEDS AT [facility] [address] [place] [address] Dept: [phone] Loc: [phone] Assessments/Plan: 1. Type 2 diabetes mellitus with hyperglycemia, without long-term current use of insulin ([facility]) ([facility]) Assessment & Plan: a1c 6.7%->7.3%. Increased Trulicity 3 mg weekly. She has some doses of the 1.5 mg which I encouraged her to finish and then start the new dose. Continue the Metformin 1000 mg BID. - follow up in 3 months. Orders: - AMB POC HEMOGLOBIN A1C - dulaglutide (Trulicity) 3 MG/0.5ML solution pen-injector; Inject 3 mg under the skin 1 (one) timeper week., Starting Wed06/09/2022, Normal 2. Class 3 severe obesity due to excess calories with serious comorbidity and body mass index (BMI)of 40.0 to 44.9 in adult ([facility]) Assessment & Plan: Discussed changes in diet and exercise. Goal set for 10lbs in the next 3 months. Follow up in about 3 months (around 09/08/2022) for f/u Diabetes. Reason for Appointment: Fred Melgoza is a 22 y.o. female who presents today for: Chief Complaint Patient presents with Diabetes Return for 6 mos chronics/diabetes- est Dr Morales. Establish Care Subjective Diabetes She presents for [...] no weight loss. Pertinent negatives for hypoglycemia complicationsinclude no blackouts and no hospitalization. Symptoms are stable. Pertinent negatives for diabetic complications include no peripheral neuropathy or retinopathy (patient denies any retinopathy. She did have eye exam this year 04/09/22 at [facility]). Risk factors for coronary artery disease include diabetes mellitus, obesity and family history. Current diabetic treatment includes oral agent (monotherapy) (Trulicity). She is compliant with treatment all of the time. Her weight is fluctuating minimally.Diabetic current diet: No particular diet. She has not had a previous visit with a dietitian. She participates in exercise intermittently. An YAYA inhibitor/angiotensin II receptor ronda is not being taken. She does not see a manager convention.Eye exam is current. Review of Systems Constitutional: [...] per week. 4 pen 11 glucose blood (Envisia TherapeuticsTouch Ultra) test strip 1 each by Other route daily. 100 each 3 glycopyrrolate (Robinul) 2 MG tablet Take 1 tablet (2 mg) by mouth daily. 90 tablet 3 metFORMIN (Glucophage) 1000 MG tablet Take 1 tablet (1,000 mg) by mouth in the morning and 1 tablet(1,000 mg) before bedtime. 180 tablet 3 Misc [...] and phrases are mis-transcribed.) documented in this [facility]03-30-2023 Miscellaneous Notes* Telephone Encounter - Ken Gomez APRN.CNP - 06/04/2022 3:39 PM EDT Have pt decrease caffeine intake and monitor Breast exam was normal Ken Gomez APRN.CNP documented in this encounterTrumbull [facility]03-28-2023 NoteHNO ID: [id number] Author: Ken Gomez APRN.CNP Service: ? Author Type: Nurse Practitioner Type: Progress Notes Filed: 06/02/2022 2:08 PM Note Text: Fred is a 22 year old who presents for an annual gynecologic exam without complaints. Menses: monthly Contraception: combined hormonal contraceptives HPV vaccine: N/A Last Pap: 04/25/2020 normal HPV: N/A History of abnormal pap: No Last mammogram: never Sexually active: Yes Pain with intercourse: No Postcoital bleeding: No OB History T0 L0 SAB0 IAB0 Ectopic0 Multiple0 Live Births0 Endoscopy Rn History LMP: 05/13/2022 (Approximate), Having periods Age at Menarche: Age at First : Age at Menopause: Endoscopy Rn History Comments: Sexual Activity: Yes; Male Contraception: [...] external genitalia normal, normal Bartholin's glands, urethra, [place]'s glands, no vulvar lesions, no cervical lesions, [...] up one year or sooner as needed Ken Gomez APRN.[facility]03-10-2023 NoteHNO ID: [id number] Author: JOBY Fernandez Service: ? Author Type: Genetic Counselor Type: Progress Notes Filed: 05/15/2022 12:57 PM Note Text: [facility] Consultation Note Genetic Counselor: Tiki Nunez MS, [facility] [place]: Fred Melgoza Patient Name and confirmed at initiation of visit HIGH LEVEL SUMMARY: The patient's family history is not suggestive of a hereditary cancer syndrome. Genetic testing is not indicated at this time. The patient was encouraged to keep us updated with any changes to her personal or family history of cancer as this may affect her risk assessment. IDENTIFICATION AND CHIEF COMPLAINT: Dr. Fernanda Cerda requested a consultation for genetic counseling and risk assessment for Fred Melgoza, a 22 year old female, for discussion of her family history of cancer. She presents to clinic today, accompanied by her mother, to discuss the possibility of a genetic predisposition to cancer, and to further clarify her risks, as well as her family members' risks for cancer. HISTORY OF PRESENT ILLNESS: Fred Melgoza is a 22 year old female with [...] is common in the general population. The [place] [employer] estimates that 1 in every [...] ovarian cancer, male breast cancer, and Ashkenazi Faith ancestry increase the likelihood of an inherited [...] greater than 50% of which was spent [id number] counseling. This plan is being carried out under the oversight of Dr. Nicole Angeles. This note will also be sent to the referring provider via the electronic medical record. Tiki Nunez MS, [facility] [place], Licensed Genetic Counselor [facility] CC: Dr. Fernanda Jamesgabriela [facility]03-10-2023 History of Present illness Narrative* Tiki Nunez LG - 05/15/2022 12:36 PM EST Images from the original note were not included. [facility] Consultation Note Genetic Counselor: Tiki Nunez MS, [facility] [place] Patient: Fred Melgoza Patient Name and confirmed at initiation of visit HIGH LEVEL SUMMARY: The patient's family history is not suggestive of a hereditary cancer syndrome. Genetic testing is not indicated at this time. The patient was encouraged to keep us updated with any changes to her personal or family history ofcancer as this may affect her risk assessment. IDENTIFICATION AND CHIEF COMPLAINT: Dr. Fernanda Cerda requested a consultation for genetic counseling and risk assessment for Fred Melgoza, a 22 year old female, for discussion of her family history of cancer. She presents to clinic today, accompanied by her mother, to discuss the possibility of a genetic predisposition to cancer, and to further clarify her risks, as well as her family members' risks for cancer. HISTORY OF PRESENT ILLNESS: Fred Melgoza is a 22 year old female with [...] is common in the general population. The [place] Cancer [employer] estimatesthat 1 in every 8 women will be [...] in these cases we can often see strongpatterns of specific cancers through each generation of a family. Factors such as early onset (<50y), bilateral breast cancer, ovarian cancer, male breast cancer, and Ashkenazi Faith ancestry increase the likelihood of an inherited [...] greater than 50% of which was spent [id number] counseling. This plan is being carried out under the oversight of Dr. Nicole Angeles. This note will also be sent to the referring provider via the electronic medical record. Tiki Nunez MS, [facility] [place], Licensed Genetic Counselor [employer] CC: Dr. Fernanda Mendoza documented in this encounterTrumbull [facility]02-22-2023 History of Present illness Narrative* Xander Hodges MD - 04/29/2022 1:00 PM EST Assessment and Recommendations: Fred Melgoza is a 22 y.o. female here for left-sided epistaxis and nasal dryness - -Patient tolerated cautery well -Use Bactroban ointment twice a day in the left nasal cavity to address the nasal dryness -Follow-up in 3 weeks for reassessment Otolaryngology Head and Neck Surgery Clinic Note HPI: Fred Melgoza is a 22 y.o. yo female who presents to clinic today for follow-up of nasal bleeding. Patient states she was doing well status post cautery however over the past month she has had resumption of bleeding. She states coming on the left side no triggering factors she denies any trauma to the region she continues to the Bactroban ointment without any improvement. States last nosebleed was last night last for approximately 5 minutes she is here for further assessment possible cauterization. PMH: Past Medical History: Diagnosis Date Acid reflux Asthma Diabetes mellitus (HCC) Sleep apnea Allergies: Allergies Allergen Reactions Prednisone Other and Anaphylaxis Cetirizine Swelling Microgestin Fe 1-20 [Norethin Yaya-Eth Estrad-Fe] Unknown and Other Norgestimate-Eth Estradiol Angioedema Medications: Current Outpatient Medications: albuterol 108 (90 Base) MCG/ACT inhaler, Inhale 2 puffs every 6 hours as needed for wheezing or shortness of breath., Disp: 18 g, Rfl: 3 aluminum chloride (Drysol) 20 % external solution, 1 application at bedtime Strength: 20 %, Disp: 60 mL, Rfl: 3 dulaglutide (Trulicity) 1.5 MG/0.5ML solution pen-injector, Inject 1.5 mg under the skin 1 (one) time per week., Disp: 4 pen, Rfl: 11 fluticasone (Flonase) 50 MCG/ACT nasal spray, SHAKE LIQUID AND USE 1 SPRAY IN EACH NOSTRIL DAILY Strength: 50 MCG/ACT (Patient not taking: Reported on 04/09/2022), Disp: 16 g, Rfl: 3 glucose blood (Envisia TherapeuticsTouch Ultra) test strip, 1 each by Other route daily., Disp: 100 each, Rfl: 3 glycopyrrolate (Robinul) 2 MG tablet, Take 1 tablet (2 mg) by mouth daily., Disp: 90 tablet, Rfl: 3 metFORMIN (Glucophage) 1000 MG tablet, Take 1 tablet (1,000 mg) by mouth in the morning and 1 tablet (1,000 mg) before bedtime., Disp: 180 tablet, Rfl: 3 Misc Natural Products (BLOOD SUGAR BALANCE PO), , Disp: , Rfl: mupirocin (Bactroban) 2 % ointment, Apply 2 g to affected nostril(s)., Disp: , Rfl: Nutritional Supplements (ESTRO SUPPORT ES PO), , Disp: , Rfl: pantoprazole (ProtoNix) 40 MG EC tablet, TAKE 1 TABLET BY MOUTH EVERY MORNING BEFORE BREAKFAST Strength: 40 mg, Disp: 90 tablet, Rfl: 1 PSH: No past surgical history on file. FH: Family History Problem Relation Name Age of Onset Diabetes Mother Hypertension Mother COPD Mother Cancer Maternal Grandmother Diabetes Maternal Grandfather SH: Social History Socioeconomic History Marital status: Spouse name: Not on file Number of children: Not on file Years of education: Not on file Highest education level: Not on file Occupational History Not on file Tobacco Use Smoking status: Never Smokeless tobacco: Never Vaping Use Vaping Use: Never used Substance and Sexual Activity Alcohol use: Never Drug use: Never Sexual activity: Not on file Other Topics Concern Not on file Social History Narrative Not on file Social Determinants of Health Financial Resource Strain: Not on file Food Insecurity: Not on file Transportation Needs: Not on file Physical Activity: Not on file Stress: Not on file Social Connections: Not on file Intimate Partner Violence: Not on file Housing Stability: Not on file Physical Exam: Constitutional: General: Patient is not in acute distress. Appearance: Patient is well-developed. Eyes: Conjunctiva/sclera: Conjunctivae normal. Pupils: Pupils are equal, round, and reactive to light. HENT: Jaw: No trismus. Nose: No signs of any recent bleeding on anterior rhinoscopy left side reveals excoriated tissue along the lower anterior septal wall please see note Mouth: Mucous membranes are not pale, not dry and not cyanotic. No oral lesions. Pharynx: Uvula midline. No oropharyngeal exudate or uvula swelling. Tonsils: No tonsillar exudate. No abnormal masses or lesions Thyroid: No significant thyromegaly. Trachea: Trachea and phonation normal. No tracheal deviation. Pulmonary: Effort: Pulmonary effort is normal. No respiratory distress. Breath sounds: No stridor. Musculoskeletal: Head: Normocephalic and atraumatic. Neck: Full passive range of motion without pain, neck supple. Skin: General: Skin is warm and dry. Findings: No erythema or rash. Neurological: Cranial Nerves: No cranial nerve deficit. Sensory: No sensory deficit. Coordination: Coordination normal. Extremities: No significant peripheral edema or varicosities Psychiatric: Mood and Affect: Mood and affect normal. Cognition and Memory: Cognition and memory normal. Procedure note: Control of epistaxis Informed consent was obtained. Anterior anoscopy revealed small amount of excoriated tissue on the left anterior septal wall this was cauterized with silver nitrate cautery patient was observed for 10 to 15 minutes was hemostatic all of her question concerns were answered and she expressed understanding documented in this encounterSBlanchard Valley Health System Blanchard Valley [id number] Telephone encounter Note* Telephone Encounter - Akiko Del Rio - 04/21/2022 2:02 PM EST LMOM for patient to call back to schedule follow up appointment. [facility] [id number] Miscellaneous Notes* Telephone Encounter - Akiko Del Rio - 04/21/2022 2:02 PM EST LMOM for patient to call back to schedule follow up appointment. * Telephone Encounter - Yuliana Prabhakarubbs - 04/17/2022 3:18 PM EST Name of Caller: Fred Contact Reason for Appointment: Pt states she would like to schedule a follow up appt, schedule was time popping at up during call Office Name: [facility] Medication Refills need, if any: n/a Medication Name: n/a documented in this [facility]02-10-2023 Telephone encounter Note* Telephone Encounter - Yuliana Prabhakarubbs - 04/17/2022 3:18 PM EST Name of Caller: Fred Contact Reason for Appointment: Pt states she would like to schedule a follow up appt, schedule was time popping at up during call Office Name: [facility] Medication Refills need, if any: n/a Medication Name: n/a [facility] [id number] History of Present illness Narrative* Do Luna MD - 04/09/2022 1:00 PM EST Images from the original note were not included. [facility] OPHTHALMOLOGY [address] [facility] [address] Dept: [phone] Dept Loc: [phone] Visit type: New patient Reason for Visit: Diabetic Eye Exam Assessment and Plan 1. Diabetes mellitus type 2 without retinopathy (CMS/HCC) (HCC): monitor yearly 2. Myopia of both eyes: Rx glasses given Follow up in about 1 year (around 04/09/2023) for Diabetic exam. Subjective HPI New pt. DFE Lab Results Component Value Date HGBA1C 6.7 (A) 11/08/2021 Lab Results Component Value Date GLUCOSE NEGATIVE 02/13/2022 CALCIUM 9.4 01/18/2022 NA 137 01/18/2022 K 4.0 01/18/2022 CO2 22 01/18/2022 CL 106 01/18/2022 BUN 12 01/18/2022 CREATININE 0.79 01/18/2022 LAST BP: 105/73 on 02-13-22 Pt states for a few days has noticed that when reading, has to hold things closer to see. Pt statesdistance va ou seems weaker, not as good as it was when 1st got glasses 2 yrs ago. Pt states both eyes (OU) feel irritated and itch at times for few weeks. Pt diagnosed with diabetes at age 15. LBS 116 this pm. Ranges 50-200. Last edited by Yeni Cam on 04/09/2022 1:19 PM. ROS Positive for: Endocrine, Eyes Negative for: Constitutional, Gastrointestinal, Neurological, Skin, Genitourinary, Musculoskeletal,HENT, Cardiovascular, Respiratory, Psychiatric, Allergic/Imm, Heme/Lymph Last edited by Do Luna MD on 04/09/2022 2:18 PM. Allergies Allergen Reactions Prednisone Other and Anaphylaxis Cetirizine Swelling Microgestin Fe 1-20 [Norethin Yaya-Eth Estrad-Fe] Unknown and Other Norgestimate-Eth Estradiol Angioedema Outpatient Medications Prior to Visit Medication Sig Dispense Refill [...] (one) time per week. 4 pen 11 glycopyrrolate (Robinul) 2 MG tablet Take 1 tablet (2 mg) by mouth daily. 90 tablet 3 metFORMIN (Glucophage) 1000 MG tablet Take 1 tablet (1,000 mg) by mouth in the morning and 1 tablet(1,000 mg) before bedtime. 180 tablet 3 mupirocin (Bactroban) 2 % ointment Apply 2 g to affected nostril(s). pantoprazole (ProtoNix) 40 MG EC tablet TAKE 1 TABLET BY MOUTH EVERY MORNING BEFORE BREAKFAST Strength: 40 mg 90 tablet 1 fluticasone (Flonase) 50 MCG/ACT nasal spray SHAKE LIQUID AND USE 1 SPRAY IN EACH NOSTRIL DAILY Strength: 50 MCG/ACT (Patient not taking: Reported on 04/09/2022) 16 g 3 glucose blood (Envisia TherapeuticsTouch Ultra) test strip 1 each by Other route daily. 100 each 3 Misc Natural Products (BLOOD SUGAR BALANCE PO) Nutritional Supplements (ESTRO SUPPORT ES PO) No facility-administered medications prior to visit. Past Medical History: Diagnosis Date Acid reflux Asthma Diabetes mellitus (HCC) Sleep apnea Social History Tobacco Use Smoking status: Never Smokeless tobacco: Never Substance Use Topics Alcohol use: Never History reviewed. No pertinent surgical history. Family History Problem Relation Name Age of Onset Diabetes Mother Hypertension Mother COPD Mother Cancer Maternal Grandmother Diabetes Maternal Grandfather Objective Base Eye Exam Visual Acuity (Snellen - Linear) Right Left Dist cc 20/50 -1 20/50 Dist ph cc 20/30 20/25 Near cc J1+ J1+ Tonometry (Applanation with Fluress, 1:43 PM) Right Left Pressure 16 15 Pupils Dark Light Shape React APD Right 3 2 Round Slow None Left 3 2 Round Slow None Visual Reddy Right Left Full Full Extraocular Movement Right Left Full, Ortho Full, Ortho Neuro/Psych Oriented x3: Yes Mood/Affect: Normal Dilation Both eyes: 2.5% Phenylephrine, 1.0% Tropicamide @ 1:35 PM Slit Lamp and Fundus Exam External Exam Right Left External Normal Normal Slit Lamp Exam Right Left Lids/Lashes 1+ Dermatochalasis - upper lid 1+ Dermatochalasis - upper lid Conjunctiva/Sclera White and quiet White and quiet Cornea Clear Clear Anterior Chamber Deep and quiet Deep and quiet Iris Round and reactive Round and reactive Lens Clear Clear Anterior Vitreous Normal Normal Fundus Exam Right Left Disc Normal Normal C/D Ratio 0.2 0.2 Macula Normal Normal Vessels Normal Normal Periphery Normal Normal Refraction Wearing Rx Sphere Cylinder Thompson Right -3.75 +2.25 090 Left -3.00 +1.75 091 Age: 1yrs Type: SVL Manifest Refraction Sphere Cylinder Thompson Dist VA Right -5.25 +3.25 080 20/20 Left -4.75 +3.25 090 20/25 Manifest Refraction #2 (Auto) Sphere Cylinder Thompson Dist VA Right -5.25 +3.50 083 Left -4.75 +3.25 087 Final Rx Sphere Cylinder Thompson Right -5.25 +3.25 080 Left -4.75 +3.25 090 Expiration Date: 04/09/2023 Data Reviewed and Summarized No current labs Do Luna MD documented in this encounterSBlanchard [facility] Bl[facility] [id number] Telephone encounter Note* Telephone Encounter - Kris Trevino MA - 03/05/2022 5:35 PM EST Noted. [facility] [id number] Miscellaneous Notes* Telephone Encounter - Kris Trevino MA - 03/05/2022 5:35 PM EST Noted. * Telephone Encounter - Nicole Corral MA - 02/26/2022 2:08 PM EST FYI * Telephone Encounter - Jerome Prieto - 02/25/2022 2:01 PM EST Name of caller: Fred Contact phone number: [phone] Relationship to Patient: patient Provider: Suzanna Mckeon Practice: [facility] Chief Complaint/Reason for Call: patient is looking for Trulicity at other pharmacies . I suggestedshe contact [facility], then her insurance carrier. There is a nation wide back order on Trulicity in higher dose. Patient will call back with pharmacy she can find Best time of day caller can be reached: any Patient advised that office/PCP has 24-48 business hours to return their call: yes * Telephone Encounter - MILADIS Castillo CNP - 02/23/2022 10:08 AM EST Please contact the pharm. Assist the pt to know if there is another [facility] that carries the 3mg dose. I would prefer she locate a pharmacy that has the correct dose, otherwise will need to complete2 injections for the proper dose. I can send the new rx to this pharm and we can wait to see if insurance agrees to it. She will needto fu with the pharm regarding this. In the mean while, recommend she expand pharmacy or drug storeoptions just in case they do not. I would like to wrap this up today. * Telephone Encounter - Victoria Carias MA - 02/20/2022 10:27 AM EST Please advice, new pharmacy was updated. * Telephone Encounter - Traci Gay - 02/20/2022 9:32 AM EST Name of caller: Fred Contact phone number: [phone] Relationship to Patient: patient Provider: Eyad Mckeon Practice: [facility] Chief Complaint/Reason for Call: The patient states she would like to have the Trulicity injector pen sent to [facility] on [facility] in [place], however they only have the 1.5 mg pens, until the endof the year. Best time of day caller can be reached: Any Patient advised that office/PCP has 24-48 business hours to return their call: No * Telephone Encounter - Victoria Carias MA - 02/20/2022 8:53 AM EST LM for patient to call in office, Please released message to patient. * Telephone Encounter - MILADIS Castillo CNP - 02/19/2022 12:45 PM EST Inform pt to contact alternative pharmacy to check their stock. I will send the rx where ever she states is convenient for her if they have stock. * Telephone Encounter - Victoria Carias MA - 02/19/2022 11:36 AM EST Please advice. * Telephone Encounter - Alejandra Thompson - 02/18/2022 3:31 PM EST Name of caller: fred Contact phone number: [phone] Relationship to Patient: patient Provider: Suzanna Mckeon Practice: Chief Complaint/Reason for Call: pt. Called in about trulicity pen injector, states pharmacy will be out of stock until after first of year, and she needs to have pcp find out where she can get from,please call and advise Best time of day caller can be reached: AM Patient advised that office/PCP has 24-48 business hours to return their call: Yes documented in this encounterSBlanchard Valley Health System Blanchard Valley [id number] Telephone encounter Note* Telephone Encounter - Nicole Corral MA - 02/26/2022 2:08 PM EST SHAYLA [facility] [id number] Telephone encounter Note* Telephone Encounter - Jerome Prieto - 02/25/2022 2:01 PM EST Name of caller: Fred Contact phone number: [phone] Relationship to Patient: patient Provider: Suzanna Mckeon Practice: [facility] Chief Complaint/Reason for Call: patient is looking for Trulicity at other pharmacies . I suggestedshe contact [facility], then her insurance carrier. There is a nation wide back order on Trulicity in higher dose. Patient will call back with pharmacy she can find Best time of day caller can be reached: any Patient advised that office/PCP has 24-48 business hours to return their call: yes [facility] [id number] Telephone encounter Note* Telephone Encounter - MILADIS Castillo CNP - 02/23/2022 10:08 AM EST Please contact the pharm. Assist the pt to know if there is another norberto that carries the 3mg dose. I would prefer she locate a pharmacy that has the correct dose, otherwise will need to complete2 injections for the proper dose. I can send the new rx to this pharm and we can wait to see if insurance agrees to it. She will needto fu with the pharm regarding this. In the mean while, recommend she expand pharmacy or drug storeoptions just in case they do not. I would like to wrap this up today. [id number] Telephone encounter Note* Telephone Encounter - Victoria Carias MA - 02/20/2022 10:27 AM EST Please advice, new pharmacy was updated. [facility] [id number] Telephone encounter Note* Telephone Encounter - Traci Gay - 02/20/2022 9:32 AM EST Name of caller: rFed Contact phone number: [phone] Relationship to Patient: patient Provider: Eyad Mckeon Practice: [facility] Chief Complaint/Reason for Call: The patient states she would like to [facility] [place], however they only have the 1.5 mg pens, until the endof the year. Best time of day caller can be reached: Any Patient advised that office/PCP has 24-48 business hours to return their call: No [employer] [id number] Telephone encounter Note* Telephone Encounter - Victoria Carias MA - 02/20/2022 8:53 AM EST LM for patient to call in office, Please released message to patient. [facility] [id number] Telephone encounter Note* Telephone Encounter - MILADIS Castillo CNP - 02/19/2022 12:45 PM EST Inform pt to contact alternative pharmacy to check their stock. I will send the rx where ever she states is convenient for her if they have stock. [facility] [id number] Telephone encounter Note* Telephone Encounter - Victoria Carias MA - 02/19/2022 11:36 AM EST Please advice. [employer] [id number] Telephone encounter Note* Telephone Encounter - Alejandra Thompson - 02/18/2022 3:31 PM EST Name of caller: fred Contact phone number: [phone] Relationship to Patient: patient Provider: Suzanna Mckeon [facility]: [facility] Chief Complaint/Reason for Call: pt. Called in about trulicity pen injector, states pharmacy will be out of stock until after first of year, and she needs to have pcp find out where she can get from,please call and advise Best time of day caller can be reached: AM Patient advised that office/PCP has 24-48 business hours to return their call: Yes [facility] [employer] [id number] Miscellaneous Notes* Telephone Encounter - Fernanda Cerda MD - 12/01/2021 3:48 PM EDT I placed a consultation to genetic counseling. It is unknown if her insurance will cover this service, so we will have to see if they OK this documented in this encounterTrumbull Regional Medical Center09-26-2022 NoteHNO ID: [id number] Author: Fernanda Cerda MD Service: ? Author Type: Physician [...] her to high risk clinic if necessary Fernanda Cerda, [facility]08-31-2022 Hospital Discharge instructions* Discharge Instructions* Jose G Emanuel MD - 11/05/2021 3:44 AM EDT Take all medication as prescribed. Follow up with your PCP or breaker machine tender this week. Return for new or worsening symptoms before seeing your doctor, or for any symptom you feel needs immediate attention. documented in this encounterSUMMA Work Phone: 1(541) 653-950906-16-2022 Miscellaneous Notes* Telephone Encounter - Lisa Mcfarland RN - 08/21/2021 12:29 PM EDT Aware of UTI and Rx at pharm. Lisa Mcfarland RN * Telephone Encounter - Efraín Wylie PA-C - 08/21/2021 11:15 AM EDT Urine culture positive for GBS, non. Rx sent for amoxicillin. Efraín Wylie PA-C documented in this encounterTrumbull Regional Medical Center06-15-2022 Miscellaneous Notes* Telephone Encounter - Lisa Mcfarland RN - 08/20/2021 2:13 PM EDT LVM that Rx is at pharm. Lisa Mcfarland RN Please inform patient that fungal smear positive for yeast vaginitis. Sent Fluconazole Rx to pharmacy. * Telephone Encounter - Efraín Wylie PA-C - 08/20/2021 1:37 PM EDT Please inform patient that fungal smear positive for yeast vaginitis. Sent Fluconazole Rx to pharmacy. Thanks! Efraín Wylie PA-C documented in this encounterTrumbull Regional Medical Center06-14-2022 Instructions* Patient Instructions* Efraín Wylie PA-C - 08/19/2021 4:10 PM EDT Please call the office before going to the hospital. If you are , go to the ER at the [facility]. Do not go to the outlying ER s ([facility] or [place]). If you need to go to an ER and cannot or will not go downtown, please use one of [facility] ERs (not [facility], [facility] or [facility]). documented in this encounterTrumbull Regional Medical Center06-14-2022 History of Present illness Narrative* Ken Gomez APRN.[facility] - 08/19/2021 3:41 PM EDT Fred Melgoza is a 21 year old female who presents for problem visit with complaint of burningwith urination for the past 10 days. HPI: [...] L0 SAB0 IAB0 Ectopic0 Multiple0 Live Births0 Endoscopy Rn History LMP: 08/14/2021 (Approximate), Having periods Age at Menarche: Age at First : Age at Menopause: Endoscopy Rn History Comments: Sexual Activity: Yes; Male Contraception: [...] history of chronic pain, or current treatment fora chronic pain condition. GENERAL: No weight loss, malaise or fevers RESPIRATORY: Negative for cough, hemoptysis, wheezing, COPD, dyspnea or shortness of breath CARDIOVASCULAR: Negative for chest pain, leg swelling, hypertension, CHF or palpitations RESEARCH SCIENTIST: Negative for abnormal vaginal bleeding, abnormal vaginal [...] nitrates, negative for Leukocytes - URINE CULTURE Efraín Wylie PA-C I spent a total of 20 minutes on the date of the service which included obbp-th-[id number] patient care, completing clinical documentation, obtaining and/or reviewing separately obtained history, performing a medically appropriate examination, counseling and educating the patient/family/caregiver and ordering medications, tests, or procedures Medical Decision Making documented in this encounterTrumbull Regional Medical Center11-09-2021 History of Present illness NarrativePatient c/o sharp pain in her left arm,, [...] change in activity that she is aware of.-[facility] Work Phone: 1(206) 916-834111-08-2021 History of Present illness NarrativePatient c/o sharp pain in her left arm,, [...] Pt has been taking ibuprofen with some reli ef. Pt does have an YAYA bandage she has been using to wrap it with some relief. Denies: fever, chills, redness, warmth, swelling, bruising, open wounds. She is right handed. 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, but also sleeps on her arm but no other change in activity that she is aware of.[facility], LLC[facility] Work Phone: [phone]) 589-196910-19-2021 History of Present illness Narrative* Diana Mera, PT, DPT - 12/24/2020 3:12 PM EDT Episode Visit Count: 1 Therapist That Will Oversee The Plan Of Care: Diana Mera Start of Care Date: 12/24/20 Onset Date: 09/23/20 Plan of Care Certification Date: 12/24/20 Next Certification Due Date: 03/18/21 Patient Identified by Name and Date of : Yes REHABIL[facility]ATION AND SPORTS THERAPY PHYSICAL THERAPY EVALUATION PLAN OF CARE: Assessment: Fred Melgoza presents with the diagnosis of pelvic pain in female. She presents with impairments of TONYA, UUI, strength, tenderness to palpation, pain with intercourse, constipation.She may benefit from skilled therapy services to [...] of pelvic floor muscles to allow for decreasedpain. Pt will report decreased sensation of burning [...] Planned: 12 Planned Treatment Interventions: Therapeutic exercise (75655);Neuromuscular re- education (30466);Manual therapy (75071);Therapeutic activities (81333);Self- retirement management (33477);Patient/Family/Caregiver Education;E-Stim Unattended (48827);E-Stim Attended/TENS (90894);Ultrasound (76657) PLAN FOR NEXT VISIT: Review HEP PRN, PFM assessment if appropriate, bladder diary, continued education in fiber/diet for improved bowel habits, core strengthening Patient demonstrates good understanding of plan of care and treatment. The above goals and plan of care were discussed and agreed upon by patient/family. SUBJECTIVE: Fred Melgoza is a 20 year old female seen today for Burning with urination and urinary incontinence Patient Goals: To not have to go to bathroom as much, improve abdominal pain and pain with intercourse Functional Limitations: compromised bladder function;compromised bowel function;altered sexual function Patient reports she is coming to PFPT because her RESEARCH SCIENTIST recommended it due to possible tight muscles.States she has had some bladder issues with [...] Control Method: none Pregnancies: 0 Aggravates Pain: [place];Urination Pain with penetration: Deep and superficial Sexual [...] blood sugar is low) Pop/Diet Pop : (not often) Enuresis: Yes (once per month, when drink too much water) Difficulty evacuating / Excessive Straining: Sometimes Incomplete emptying: Sometimes Bowel Movement Frequency: 1x/week Bowel Movement Consistency ([place]) : 7: Watery, no solid pieces;6: Fluffy [...] flicks, thought refocusing, and calmly walking to thebathroom in order to void no more frequently [...] Diana Mera PT, DPT documented in this encounterTrumbull Regional Medical Center09-10-2021 History of Present illness Narrative* Mariely Mar MD - 11/15/2020 8:55 AM EDT HPI: Fred Melgoza is a 20 year old female who presents for vaginal burning internally Started a few weeks ago Getting worse No new partners No new soaps/products No dysuria No fevers or chills No discharge noted Slight odor No itching Pain happens with getting up and out of bed RESEARCH SCIENTIST history: Menarche: 15 Menses: regular monthly lasting 7 days, can get two per month Menopause: n/a Contraception: none attempting Prior contraception: none. angioedema w ocps Sexually active: yes STIs/PID: no History of sexual abuse: no Last Pap: 04/2020 NILM Abnormal Paps:no Gardasil: n/a Pregnancies: none Infertility: trying > 1 year Pelvic Pain: no Endoscopy Rn Issues: mp Mammogram:n/a Breast biopsy history: Colonoscopy: [...] BMI 42.15 kg/(m^2). 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 General: well groomed, well [...] inguinal lymphadenopathy. + pelvic floor tenderness in AR/ and PC mm bilaterally. No CMT. Extremities: [...] DETECT Mariely Mar MD documented in this encounterTrumbull Regional Medical Center08-10-2021 Instructions* Patient Instructions* Ken Gomez APRN.CNP - 10/15/2020 3:49 PM EDT Please call the office before going to the hospital. If you are , go to the ER at [facility] [place]. Do not go to the outlying ER s ([facility] or [place]). If you need to go to an ER and cannot or will not go downtown, please use one of [facility] s ERs (not [place], [facility] or [place]). documented in this encounterTrumbull Regional Medical Center08-10-2021 History of Present illness Narrative* Ken Gomez APRN.CNP - 10/15/2020 3:33 PM EDT VIRTUAL VISIT PROGRESS NOTE This is a virtual visit using Audio only. It required patient-provider interaction for the medical decision making as documented below. Fred Melgoza is a 20 year old female seen [...] no abdominal pain : urination is normal RESEARCH SCIENTIST: denies abnormal vaginal bleeding, no vaginal discharge, [...] partner f/u with urology. Declines RGI referral. Ken Gomez APRN.CNP There are no Patient Instructions [...] a telephone encounter due to technical difficulties. Ken Gomez APRN.CNP documented in this encounterTrumbull Regional Medical Center08-02-2021 Miscellaneous Notes* Telephone Encounter - Ken Gomez APRN.CNP - 10/07/2020 7:21 AM EDT I am not sure what this is referring to Ken Gomez APRN.CNP documented in this encounterTrumbull Regional Medical Center07-29-2021 Instructions* Patient Instructions* Ken Gomez APRN.CNP - 10/03/2020 1:55 PM EDT Please call the office before going to the hospital. If you are , [facility]. Do not go to the outlying ER s ([facility] or [place]). If you need to go to an ER and cannot or will not go downtown, please use one of [facility] ERs (not [place], [facility] or [place]). documented in this encounterTrumbull Regional Medical Center07-29-2021 History of Present illness Narrative* Ken Gomez APRN.CNP - 10/03/2020 1:52 PM EDT Fred Melgoza is a 20 year old female who presents with a chief complaint of Vaginal Discharge(burning, irritation) SUBJECTIVE Pt presents with complaints of [...] deformities and Alert/Oriented x 3 Mood/Affect: Normal RESEARCH SCIENTIST: Vulva - no lesions, skin intact with [...] VAGINAL CREAM - RAPID BACT VAGINOSIS (AK) Ken Gomez APRN.RETOUCHER PHOTOENGRAVING Total time in direct patient contact = 15 min. Greater than 50% of the time was spent in counselingand/or coordination of care. I have confirmed and edited as necessary, the PFSH and ROS obtained by others. documented in this encounterTrumbull Regional Medical Center05-11-2021 Hospital Discharge instructions* Instructions* Mariely Mccoy PA - 07/16/2020 [facility]up with [facility] or your dentist. Take Augmentin twice a day for the next 10 days as prescribed. Return to the emergency department if you experience any new or worsening symptoms. * Attachments The following attachments cannot be sent through Care Everywhere. * Tooth and Gum Pain (Maldivian) * Head or Face Pain (Maldivian) documented in this [facility] Work Phone: [phone] Hospital Discharge instructions* Instructions* Sudeep Best PA-C - 03/20/2019 Please follow-up with your primary physician in one week for reassessment or [facility] ear/nose/throat if your symptoms do not improve despite using antibiotics. * Attachments The following attachments cannot be sent through Care Everywhere. * Otitis Media (Maldivian) documented in this [facility] Work Phone: Evaluation note* Diagnosis Pain, dental- Primary Unspecified disorder of the teeth and supporting structures documented in this encounter [facility] Work Phone: Evaluation note* Diagnosis Cough documented in this encounter [facility] Work Phone: Evaluation note* Diagnosis Chronic cough Cough documented in this encounter [facility] Work Phone: Evaluation note* Diagnosis Irregular menstrual cycle- Primary Vaginal discharge Leukorrhea, not specified as infective documented in this encounter [facility] note* Diagnosis Irregular menstrual cycle- Primary Abnormal laboratory test Other abnormal clinical finding documented in this encounter [facility] note* Diagnosis Irregular menstrual cycle [facility]* Diagnosis Vaginal burning- Primary Other specified symptom associated with female genital organs Pelvic pain in female Unspecified symptom associated with female genital organs documented [facility] this encounter [facility]* Diagnosis Muscular incoordination- Primary Lack of coordination Pelvic pain in female Unspecified symptom associated with female genital organs documented [facility] this encounter [facility]* Diagnosis Upper back pain Acute bilateral low back pain without sciatica documented in this encounter [facility] Work Phone: Evaluation note* Diagnosis Dizziness Dizziness and giddiness Type 2 diabetes mellitus with hyperglycemia, without long-term current use of insulin (HCC) documented in this encounter [facility] Work Phone: Evaluation note* Diagnosis Right otitis media, unspecified otitis media type- Primary documented in this encounter [facility] Work Phone: Evaluation note* Diagnosis Acute vaginitis- Primary Vaginitis and vulvovaginitis, unspecified Dysuria documented in this encounter [facility] note* Diagnosis Yeast vaginitis- Primary Candidiasis of vulva and vagina documented in this encounter [facility] note* Diagnosis Acute cystitis without hematuria- Primary Acute cystitis documented in this encounter [facility]* Diagnosis Abscess of right breast- Primary Inflammatory disease of breast documented in this encounter [facility] Work Phone: Evaluation note* Diagnosis Family history of malignant neoplasm of breast- Primary Family history of uterine cancer Family history of malignant neoplasm of genital organ, other documented in this encounter [facility] note* Diagnosis Family history of malignant neoplasm of breast- Primary documented in this encounter [facility] note* Diagnosis Type 2 diabetes mellitus with hyperglycemia, without long-term current use of insulin ([facility]) ([facility])- Primary Class 3 severe obesity due to excess calories with serious comorbidity and body mass index (BMI) of 40.0 to 44.9 in adult ([facility]) documented in this encounter [facility] note* Diagnosis Acute cystitis with hematuria- Primary documented in this encounter [facility] note* Diagnosis Type 2 diabetes mellitus without complication, without long-term current use of insulin ([facility]) ([facility])- Primary Class 3 severe obesity due to excess calories with serious comorbidity and body mass index (BMI) of 40.0 to 44.9 in adult ([facility]) documented in this encounter [facility] note* Diagnosis Diabetes mellitus type 2 without retinopathy ([facility]) ([facility]) documented in this encounter [facility] note* Diagnosis Diabetes mellitus type 2 without retinopathy ([facility]) ([facility]) documented in this encounter [facility] note* Diagnosis Urinary tract infection without hematuria, site unspecified- Primary documented in this encounter [facility] note* Diagnosis Pain, dental- Primary documented in this encounter [facility] note* Diagnosis Type 2 diabetes mellitus with hyperglycemia, without long-term current use of insulin ([facility])- Primary Migraine without aura and without status migrainosus, not intractable AZAM (obstructive sleep apnea) Obstructive sleep apnea (adult) (pediatric) documented in this encounter [facility] note* Diagnosis Right upper quadrant abdominal pain- Primary Abdominal pain, right upper quadrant documented in this encounter [facility] noteNo assessment information [facility] Work Phone: Evaluation note* Diagnosis Migraine without aura and without status migrainosus, not intractable Type 2 diabetes mellitus with hyperglycemia, without long-term current use of insulin ([facility]) documented in this encounter [facility] note* Diagnosis Sore throat- Primary Acute pharyngitis URI, acute Acute upper respiratory infections of unspecified site documented in this encounter [facility] note* Diagnosis Onset Date Resolution Status Abdominal pain acute Cholelithiasis acute GERD (gastroesophageal reflux disease) [facility] Work Phone: Evaluation note* Diagnosis Medication refill Issue of repeat prescriptions documented in this encounter [facility] note* Diagnosis Type 2 diabetes mellitus without complication, without long-term current use of insulin ([facility]CC) (HCC)- Primary Class 2 severe obesity due to excess calories with serious comorbidity and body mass index (BMI) of 38.0 to 38.9 in adult documented in this encounter [facility] note* Diagnosis Onset Date Resolution Status Abdominal pain acute Cholelithiasis acute GERD (gastroesophageal reflux disease) acute Abdominal pain acute Cholelithiasis acute GERD (gastroesophageal reflux disease) acute [facility] Work Phone: Evaluation note* Diagnosis Type 2 diabetes mellitus with hyperglycemia, without long-term current use of insulin ([facility]) [facility]* Diagnosis Memory impairment- Primary Memory loss Mild persistent asthma without complication [facility]* Diagnosis Medication refill Issue of repeat prescriptions [facility]* Diagnosis Onset Date Resolution Status Abdominal pain acute Cholelithiasis acute GERD (gastroesophageal reflux disease) acute Abdominal pain acute Abnormal biliary HIDA scan a cute Cholelithiasis acute GERD (gastroesophageal reflux disease) acute Nausea & vomiting acute [facility] Work Phone: evaluation note* Diagnosis Onset Date Resolution Status Abdominal pain acute Abnormal biliary HIDA scan a cute Cholelithiasis acute GERD (gastroesophageal reflux disease) acute Nausea & vomiting acute Cholelithiasis acute GERD (gastroesophageal reflux disease) acute Obstructive sleep apnea acut e Nosebleed noneactive Establishing care with new doctor, encounter for noneactive Shortness of breath noneacti ve Screening for cervical cancer noneactive Type 2 diabetes mellitus non eactive Memory change noneactive Chronic headache noneactive Abdominal pain acute Abnormal biliary HIDA scan a cute Nausea & vomiting acute Cholelithiasis acute GERD (gastroesophageal reflux disease) acute Obstructive sleep apnea acut e Nosebleed noneactive Shortness of breath noneacti ve Memory change noneactive [facility] Work Phone: evaluation note* Diagnosis confirmed by positive urine test- Primary examination or test, positive result documented in this encounter [facility] note* Diagnosis Lumbar pain- Primary Lumbago documented in this encounter [facility] note* Diagnosis Abdominal pain, unspecified abdominal location- Primary 15 weeks gestation of state, incidental documented in this encounter [facility] note* Diagnosis Pre-existing type 2 diabetes mellitus during in second trimester- Primary Therapeutic drug monitoring Encounter for therapeutic drug monitoring documented in this encounter [facility] note* Diagnosis URI, acute- Primary Acute upper respiratory infections of unspecified site Sore throat Acute pharyngitis Acute cough documented in this encounter [facility] note* Diagnosis Diabetes mellitus type 2 without retinopathy ([facility]CC) ([facility])- Primary Myopia of both eyes documented in this encounter [facility] note* Diagnosis Epistaxis- Primary Nasal dryness Other diseases of nasal cavity and sinuses documented in this encounter [facility] note* Diagnosis Type 1 diabetes mellitus during , second trimester documented in this encounter [facility] note* Diagnosis Type 1 diabetes mellitus during , second trimester documented in this encounter [facility] note* Diagnosis Type 2 diabetes mellitus with hyperglycemia, without long-term current use of insulin ([facility])- Primary Class 3 severe obesity due to excess calories with serious comorbidity and body mass index (BMI) of 40.0 to 44.9 in adult ([facility]) Type 2 diabetes mellitus without complication, without long-term current use of insulin (CMS/HCC) ([facility])- Primary Class 3 severe obesity due to excess calories with serious comorbidity and body mass index (BMI) of 40.0 to 44.9 in adult ([facility]) Type 2 diabetes mellitus with hyperglycemia, without long-term current use of insulin ([facility])- Primary Migraine without aura and without status migrainosus, not intractable AZAM (obstructive sleep apnea) Obstructive sleep apnea (adult) (pediatric) Type 2 diabetes mellitus without complication, without long-term current use of insulin (CMS/HCC) ([facility])- Primary Class 2 severe obesity due to excess calories with serious comorbidity and body mass index (BMI) of 38.0 to 38.9 in adult ([facility]) Type 2 diabetes mellitus with hyperglycemia, with long-term current use of insulin ([facility])- Primary Obesity (BMI 30-39.9) Thyromegaly Goiter, unspecified documented in this encounter [facility] note* Diagnosis Type 2 diabetes mellitus with hyperglycemia, without long-term current use of insulin ([facility])- Primary Class 3 severe obesity due to excess calories with serious comorbidity and body mass index (BMI) of 40.0 to 44.9 in adult ([facility]) Type 2 diabetes mellitus without complication, without long-term current use of insulin (CMS/HCC) ([facility])- Primary Class 3 severe obesity due to excess calories with serious comorbidity and body mass index (BMI) of 40.0 to 44.9 in adult ([facility]) Type 2 diabetes mellitus with hyperglycemia, without long-term current use of insulin ([facility])- Primary Migraine without aura and without status migrainosus, not intractable AZAM (obstructive sleep apnea) Obstructive sleep apnea (adult) (pediatric) Type 2 diabetes mellitus without complication, without long-term current use of insulin (CMS/HCC) ([facility])- Primary Class 2 severe obesity due to excess calories with serious comorbidity and body mass index (BMI) of 38.0 to 38.9 in adult ([facility]) Thyromegaly Goiter, unspecified [facility] Diagnosis Type 2 diabetes mellitus with hyperglycemia, without long-term current use of insulin ([facility])- Primary Class 3 severe obesity due to excess calories with serious comorbidity and body mass index (BMI) of 40.0 to 44.9 in adult ([facility]) Type 2 diabetes mellitus without complication, without long-term current use of insulin ([facility])- Primary Class 3 severe obesity due to excess calories with serious comorbidity and body mass index (BMI) of 40.0 to 44.9 in adult ([facility]) Type 2 diabetes mellitus with hyperglycemia, without long-term current use of insulin ([facility])- Primary Migraine without aura and without status migrainosus, not intractable AZAM (obstructive sleep apnea) Obstructive sleep apnea (adult) (pediatric) Type 2 diabetes mellitus without complication, without long-term current use of insulin ([facility])- Primary Class 2 severe obesity due to excess calories with serious comorbidity and body mass index (BMI) of 38.0 to 38.9 in adult ([facility]) Type 2 diabetes mellitus with hyperglycemia, with long-term current use of insulin ([facility])- Primary Class 3 severe obesity with serious comorbidity and body mass index (BMI) of 40.0 to 44.9 in adult, unspecified obesity type ([facility]) Thyromegaly Goiter, unspecified Therapeutic drug monitoring Encounter for therapeutic drug monitoring [facility]* Diagnosis Type 2 diabetes mellitus with hyperglycemia, without long-term current use of insulin ([facility])- Primary Class 3 severe obesity due to excess calories with serious comorbidity and body mass index (BMI) of 40.0 to 44.9 in adult Type 2 diabetes mellitus without complication, without long-term current use of insulin (HCC)- Primary Class 3 severe obesity due to excess calories with serious comorbidity and body mass index (BMI) of 40.0 to 44.9 in adult Type 2 diabetes mellitus with hyperglycemia, without long-term current use of insulin (HCC)- Primary Migraine without aura and without status migrainosus, not intractable AZAM (obstructive sleep apnea) Obstructive sleep apnea (adult) (pediatric) Type 2 diabetes mellitus without complication, without long-term current use of insulin (HCC)- Primary Class 2 severe obesity due to excess calories with serious comorbidity and body mass index (BMI) of 38.0 to 38.9 in adult (HCC) Dysuria- Primary [facility]* Diagnosis Type 2 diabetes mellitus with hyperglycemia, without long-term current use of insulin (HCC)- Primary Class 3 severe obesity due to excess calories with serious comorbidity and body mass index (BMI) of 40.0 to 44.9 in adult Type 2 diabetes mellitus without complication, without long-term current use of insulin (HCC)- Primary Class 3 severe obesity due to excess calories with serious comorbidity and body mass index (BMI) of 40.0 to 44.9 in adult Type 2 diabetes mellitus with hyperglycemia, without long-term current use of insulin (HCC)- Primary Migraine without aura and without status migrainosus, not intractable AZAM (obstructive sleep apnea) Obstructive sleep apnea (adult) (pediatric) Type 2 diabetes mellitus without complication, without long-term current use of insulin (HCC)- Primary Class 2 severe obesity due to excess calories with serious comorbidity and body mass index (BMI) of 38.0 to 38.9 in adult (HCC) Type 2 diabetes mellitus with hyperglycemia, with long-term current use of insulin (HCC)- Primary Class 3 severe obesity with serious comorbidity and body mass index (BMI) of 40.0 to 44.9 in adult, unspecified obesity type Type 2 diabetes mellitus with hyperlipidemia (HCC) (HCC) Therapeutic drug monitoring Encounter for therapeutic drug monitoring [facility] Author Rafael Bear [facility] June 21, 2023 7:31am Note Date/Time June 21, 2023 7:3 1am [facility] Medical Records Department [address] [place] [id number] History & Physical Exam 06/21/23 0730 MR#: [id number] Acct: [id number] Name: FRED MELOGZA Rep #:[id number] : 2000 23 From: Rafael Duarte PCP: Dr. Keagan Shrestha MD Status:[facility] Location: [place] [address] History and Physical Date of Admission: 06/21/23 Date of Service: 06/10/23 MR#: [id number] Acct: [id number] Name: FRED MELGOZA Rep #: [id number] : 2000 Provider: Dr. Rafael Bear MD Age/Sex: 23/F Location: [facility] Status: Signed Intake Vital Signs 05/30/2412:56 06/09/2412:06 Height 5 ft 6 in 5 ft 6 in Weight: 242 lb 244 lb BMI 39.0 39.4 BP 108/68 114/78 Blood Pressure Location Lt brachial Rt brachial Position Sitting Sitting Respiration 18 16 Pulse 89 Pulse Source Monitor Temp 99.2 F H Temp Source Temporal Pulse Oximetry (%) 98 Oxygen Delivery Method room air Intake Visit Reasons: UPDATE H&P AND VOMITING Chief Complaint: update H& for lap mark Field Service Rep Required: No Is patient in pain?: No Allergies cetirizine [From Zyrtec] Allergy (Severe, Verified 06/10/23 13:06) Angioedemaprednisone Allergy (Severe, Verified 06/10/23 13:06) Swellingadhesive tape Allergy (Intermediate, Verified 06/10/23 13:06) Rashlatex Allergy (Intermediate, Verified 06/10/23 13:06) SwellingBIRTH CONTROLL Allergy (Intermediate, Uncoded 06/10/23 13:06) Swelling Medications albuterol sulfate 90 mcg/actuation aerosol inhaler 2 puff inhalation Q6H PRN wheezing 12/03/22 [History Confirmed 06/10/23] dulaglutide 3 mg/0.5 mL subcutaneous pen injector (Trulicity) 3 mg subcut .weekly 12/03/22 [History Confirmed 06/10/23] glycopyrrolate 2 mg tablet 2 mg PO DAILY 12/03/22 [History Confirmed 06/10/23] fluticasone propionate 50 mcg/actuation nasal spray,suspension 1 spray intranasal DAILY PRN 12/17/22 [History Confirmed 06/10/23] sumatriptan succinate 50 mg tablet mg PO PRN 12/17/22 [History Confirmed 06/10/23] ondansetron 4 mg disintegrating tablet 4 mg PO TID PRN nausea and vomiting #21 tabs 12/26/22 [Rx Confirmed 06/10/23] omeprazole 20 mg capsule,delayed release 20 mg PO DAILY #30 caps 04/06/23 [Rx Confirmed 06/10/23] PFSH Medical History Asthma Cholelithiasis CPAP (continuous positive airway pressure) dependence Diabetes GERD (gastroesophageal reflux disease) Migraine Sleep apnea Surgical History No history of previous surgery Family History Mother Asthma Diabetes Hypertension High cholesterol Congestive heart failure Arthritis Anxiety and depression CVA (cerebral vascular accident)Father Arthritis Social History adopted: No household members: spouse current occupational status: unemployed pets and animals: No Smoking Status: Never smoker Electronic Cigarette Use: not used alcohol intake: never substance use type: does not use caffeine: Yes (2) Type: coffee and tea frequency: does not exercise do you feel safe at home: Yes HPI HPI HPI: Patient is a 22-year-old female who presents for evaluation of newly diagnosed gallstones. They are referred for surgical consultation from emergency medicineafter an ER visit on 12/04/2022. We had an initial surgical consultation on 12/17/2022 and at that time patient repeatedly reported that she had not experienced recurrence of her abdominal pain and thus we pursued empiric treatment for possible GERD. She is presently scheduled for an EGD to further investigate this diagnosis on 06/20/2022, however, she met with her new primary care provider, Dr. Shrestha and discussed progressive symptoms of abdominal pain and postprandial nausea and vomiting prompting return to our office today. Fred shares that she gets sick almost after every meal. She also notes the presence of right upper quadrant pain both before and after eating. She denies any experience of fevers or chills. She confesses that she is not presently taking any antiemetics because she simply does not have a prescription, but confirms that these medications were effective when she had a prescription. Below is recapitulated from patient's prior visit for ease of review: She presents today for follow-up on results from HIDA imaging. Patient states that since her last visit she has had nausea and vomiting just about every day. She shares that this occurs within 15 minutes of eating. The vomitus consist mainly of the food that she has eaten. She denies any associated pain or bloating. She does acknowledge a weight loss of approximately 15 pounds in conjunction with the symptoms. In the interim, it is noted that patient had an ER visit on 12/26/2022 due to complaints of recurrent abdominal pain and associated nausea. She shares that her symptoms have overall been better and that she has had no nausea. She confirms that she believes the medication was effective?especially 1 week into taking it. Yet she notes that there is still some right upper quadrant pain which she describes as mild intensity and improved over what she experienced previously. Interestingly she believes that the pain is precipitated with movement and that there is no relationship to eating. She initially denies noting any correlation to time of day but then later suggest that it may be moreprevalent at night after going to bed. She has not been restricting her diet for greasy foods, but does confirm that she has not been doing many spicy foods. Beyond this right upper quadrant discomfort she denies any associated fevers orchills. Mrs. Melgoza relates that when she went to the ER that evening it was for herfirst experience of constant right upper quadrant tenderness and associated nausea and vomiting. She estimates that she had dinner that day at approximately 4 PM and thereafter began to experience pain at 5:30 PM. Pain isdescribed as nonradiating. Additionally she confirms that she has felt under the weather with symptoms that include: Cough, sore throat, and runny nose. She also adds that she believes she has lost some weight because although she has not had recurrence of her pain she continues to have nausea. She notes that thenausea is mostly present when she has not recently eaten and frequently present when she is going to sleep. She also confirms a history of both heartburn and reflux which she experiences at least 3 times a week. She confirms that she is taking her prescribed pantoprazole every day with some good effect. She denies any prior history of upper scope. Because of her history she confirms that she keeps at least 4 hours between dinner and bedtime but does do some snacking in between on the account of her diabetes diagnosis. She also is only intermittentwith her habit of keeping her head propped. In addition the above she does endorse some bloating. Previous work-up has included: Right upper quadrant ultrasound which demonstrated evidence of cholelithiasis and positive sonographic Mendoza's but nogallbladder wall thickening, pericholecystic fluid, or ductal dilatation. ROS General General: Yes weight change; No appetite, fatigue, colon cancer, breast cancer or weakness HEENT HEENT: No difficulty swallowing, eye injury, eye surgery, swollen glands or hoarseness Endo Endocrine: Yes diabetes mellitus; No thyroid disease, thyroid cancer, Hair loss, heat intolerance or cold intolerance Skin Skin: No rash or changing moles Breast Breast: No left breast lump, right breast lump, nipple discharge, breast pain, abnormal mammogram, abnormal US or breast enlargement Musc Musculoskeletal: No back problems, arthritis, rheumatoid arthritis, gout or joint pain Cardio Cardiovascular: No murmur, pacemaker, heart disease, atrial fibrillation, high blood pressure, heart attack, heart stent, palpitations, shortness of breat withexertion or chest pain Psych Psychiatric: No depression, anxiety or hearing voices Resp Respiratory: Yes shortness of breath, Yes sleep apnea, Yes cough, No COPD, Yes asthma, No emphysema and No wheezing Gastro Gastrointestinal: Yes abdominal pain, Yes nausea or vomiting, No diarrhea, No constipation, No blood in stool, Yes acid reflux, No hemorrhoids, No ulcers, Yesgallbladder problem and No black,tarry stools Sergei Hematologic: No blood thinners, No blood disorders, No bleeding, No anemia and No blood clots Neuro Neurologic: No system reviewed and no additional complaints, except as documented, No as per HPI, No abnormal gait, No abnormal hearing, No abnormal movements, No abnormal speech, No behavioral changes, No burning sensations, No confusion, No convulsions, No disequilibrium, No dizziness, No localized weakness, No frequent falls, No headache(s), No lack of coordination, No loss ofvision, No memory loss, No numbness, No other visual disturbances, No radicular pain, No restless legs, No sensory deficit, No syncope, No tingling, No tremor(s), No weakness and No other Exam Const General: cooperative Orientation: alert, awake and oriented x3 Resp Effort & Inspection: normal respiratory effort GI Other: No scars, nondistended, soft, tenderness across the upper abdomen with pronounced tenderness in the right upper quadrant upon palpation Assessment and Plan Assessment and Plan (1) Nausea & vomiting: Status: Acute Comment: Patient with consistent complaints of nausea and vomiting. Etiology remains unclear. This does not seem clearly linked to a gallbladder etiology given the short duration to her symptoms from eating. As above plan to do an EGD and testher for H. pylori with biopsies. Update 06/10/2023: Patient with persistent nausea and vomiting. It appears from her history that this still is primarily postprandial. I shared with patient that I still recommend pursuing EGD with biopsy, but given her renewed complaints of pain I do find it reasonable to pursue cholecystectomy if this exam does not give us probable cause for her symptoms. If, however, this exam suggests a cause we will plan to reevaluate plans for surgery. Plan: Proceed with diagnostic EGD and biopsy as initially planned 06/21/2023. Will determine from this exam if there is lingering probable cause that this is gallbladder?related to pursue cholecystectomy. (2) Abdominal pain: Status: Acute Comment: Patient denies any abdominal pain with her nausea and vomiting complaints today. She is also nontender to palpation of the right upper quadrant today. She is minimally tender to palpation in the epigastrium. This change suggest possible upper GI source and I have shared a recommendation to proceed with the EGD. Patient describing progressive abdominal discomfort. On exam this is focused inthe right upper quadrant Plan: Plan for laparoscopic cholecystectomy with intraoperative cholangiography. Procedure and its risks and benefits were discussed in detail including hand drawings to demonstrate. (3) Abnormal biliary HIDA scan: Status: Acute Comment: Ejection fraction of 18% is certainly abnormal and consistent with a diagnosis of biliary dyskinesia, however, patient denies any pain with CCK administration. I have shared with patient, as above, that she may require cholecystectomy in time, but given the change in the nature of her symptoms believe EGD is going annalee of highest yield at this time. Plan: Will plan to proceed with laparoscopic cholecystectomy?targeting the week of 06/28/2023 I have examined the patient and the H&P has been reviewed. There are no clinicalchanges since date of exam. Patient confirms that she has ongoing right upper quadrant, postprandial discomfort that remains associated with nausea, vomiting,and bloating. Will therefore proceed to the endoscopy suite for planned EGD as discussed in detail above and in previous notes. 06/21/23 0731 <Electronically signed by Rafael Bear MD> Cosigner Signature (if applicable): CC: Dr. Keagan Shrestha MD; Dr. Rafael Bear MD~ Signed [facility] Work Phone: Hospital Discharge instructions Additional Instructions Please eat smaller portions more frequently and a bland diet to help prevent any potential bouts of nausea and vomiting secondary to your ultrasound showing gallstones today. Follow-up with the general surgeon to discuss need for potential surgical removal of the gallbladder and return to the ER if you have intractable pain or develop a fever over 100.4.[facility] Work Phone: Hospital Discharge instructions Additional Instructions Please contact your general surgeon to inform them of your increased symptoms. Take the Zofran as directed for nausea and vomiting control keep yourself well-hydrated and return to the ER should you have any further concernsWooPremier [facility] Work Phone: Hospital Discharge instructions* Attachments The following attachments cannot be sent through Care Everywhere. * Dysuria Discharge Instructions, Adult (Maldivian[facility] Attachments The following attachments cannot be sent through Care Everywhere. * Diabetes and Diet (Maldivian) [facility] Attachments The following attachments cannot be sent through Care Everywhere. * Diet and Health (Maldivian) [facility] Attachments The following attachments cannot be sent through Care Everywhere. * Diet and Health (Maldivian) [facility] (n[facility]ative)* Diagnostic Procedure Only (Routine) Status Reason Specialty Diagnoses / Procedures Referred By Contact Referred To Contact Pending Review Auto-Generated Referral [facility] Diagnoses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 Endocrinology Diagnoses Type 2 diabetes mellitus without complications (HCC) Encounter for supervision of normal , unspecified, unspecified trimester Procedures AR OFFICE/OUTPATIENT NEW MODERATE MDM 45 MINUTES Keagan Shrestha MD [address] [place] [address] [facility] [address] [place] [address] Referral ID Status Reason Start Date Expiration Date V isits Requested Visits Authorized [id number] Pending Review 09/22/2023 09/21/2024 1 1 Reason Comments Cough Cough, chest congest ion, vomiting and St x 6 days Reason Comments Medication Question Reason Onset Date Comments Diabetes 12/02/2023 Reason Comments Diabetic Eye Exam Reason Onset Date Comments Appointment 04/17/2022 Reason Comments Follow-up Nose bleeds- last wa s last night lasting 5 minutes Reason Comments Abdominal Pain Reason Comments Diabetes Mellitus Follow-up Reason Onset Date Comments Diabetes 12/02/2023 Eye Exam 12/02/2023 Reason Onset Date Comments Other 05/04/2024 Reason Onset Date Comments Other 05/04/2024 Chart notes and CMN Reason Comments Diabetes Mellitus Follow-up Reason Comments Female Dysuria Reason Onset Date Comments Record Request 08/25/2024 Reason Onset Date Comments Other 11/14/2024 Manish SPENCE Ordered Prescriptions (unrec ognized section and content) Prescription Sig Dispensed Refills Start Date End Da te predniSONE (DELTASONE) 20 MG tablet Take 1 tablet by mouth 2 times daily for 5 days 10 tablet 0 04/29/2020 05/04/2020 diphenhydrAMINE (BENADRYL ALLERGY) 25 MG tablet Take 1 tablet by mouth every 6 hours as needed for Itching 12 tablet 0 04/29/2020 05/02/2020 Prescription Sig Dispensed Refills Start Date End [...] or prosecute any alcohol or drug abuse patient.[facility] the event this information is protected by the Federal Confidentiality of Alcohol and Drug Abuse Patient Records regulations: The Federal rules restrict any use of the information to criminally investigate or prosecute any alcohol or drug abuse patient.[facility] Center[facility] the event this information is protected by the Federal Confidentiality of Alcohol and Drug Abuse Patient Records regulations: The Federal rules restrict any use of the information to criminally investigate or prosecute any alcohol or drug abuse patient.[facility] Center[facility] the event this information is protected by the Federal Confidentiality of Alcohol and Drug Abuse Patient Records regulations: The Federal rules restrict any use of the information to criminally investigate or prosecute any alcohol or drug abuse patient.[facility] CenterIn the event this information is protected by the Federal Confidentiality of Alcohol and Drug Abuse Patient Records regulations: The Federal rules restrict any use of the information to criminally investigate or prosecute any alcohol or drug abuse patient.[facility] Center[facility] the event this information is protected by the Federal Confidentiality of Alcohol and Drug Abuse Patient Records regulations: The Federal rules restrict any use of the information to criminally investigate or prosecute any alcohol or drug abuse patient.[facility] Center[facility] the event this information is protected by the Federal Confidentiality of Alcohol and Drug Abuse Patient Records regulations: The Federal rules restrict any use of the information to criminally investigate or prosecute any alcohol or drug abuse patient.[facility] CenterIn the event this information is protected by the Federal Confidentiality of Alcohol and Drug Abuse Patient Records regulations: The Federal rules restrict any use of the information to criminally investigate or prosecute any alcohol or drug abuse patient.[facility] CenterIn the event this information is protected by the Federal Confidentiality of Alcohol and Drug Abuse Patient Records regulations: The Federal rules restrict any use of the information to criminally investigate or prosecute any alcohol or drug abuse patient.[facility] Center[facility] the event this information is protected by the Federal Confidentiality of Alcohol and Drug Abuse Patient Records regulations: The Federal rules restrict any use of the information to criminally investigate or prosecute any alcohol or drug abuse patient.[facility] Center[facility] the event this information is protected by the Federal Confidentiality of Alcohol and Drug Abuse Patient Records regulations: The Federal rules restrict any use of the information to criminally investigate or prosecute any alcohol or drug abuse patient.[facility] CenterIn the event this information is protected by the Federal Confidentiality of Alcohol and Drug Abuse Patient Records regulations: The Federal rules restrict any use of the information to criminally investigate or prosecute any alcohol or drug abuse patient.[facility] CenterIn the event this information is protected by the Federal Confidentiality of Alcohol and Drug Abuse Patient Records regulations: The Federal rules restrict any use of the information to criminally investigate or prosecute any alcohol or drug abuse patient.[facility] CenterIn the event this information is protected by the Federal Confidentiality of Alcohol and Drug Abuse Patient Records regulations: The Federal rules restrict any use of the information to criminally investigate or prosecute any alcohol or drug abuse patient.[facility] CenterIn the event this information is protected by the Federal Confidentiality of Alcohol and Drug Abuse Patient Records regulations: The Federal rules restrict any use of the information to criminally investigate or prosecute any alcohol or drug abuse patient.[facility] CenterIn the event this information is protected by the Federal Confidentiality of Alcohol and Drug Abuse Patient Records regulations: The Federal rules restrict any use of the information to criminally investigate or prosecute any alcohol or drug abuse patient.[facility] CenterIn the event this information is protected by the Federal Confidentiality of Alcohol and Drug Abuse Patient Records regulations: The Federal rules restrict any use of the information to criminally investigate or prosecute any alcohol or drug abuse patient.[facility] CenterIn the event this information is protected by the Federal Confidentiality of Alcohol and Drug Abuse Patient Records regulations: The Federal rules restrict any use of the information to criminally investigate or prosecute any alcohol or drug abuse patient.[facility] CenterIn the event this information is protected by the Federal Confidentiality of Alcohol and Drug Abuse Patient Records regulations: The Federal rules restrict any use of the information to criminally investigate or prosecute any alcohol or drug abuse patient.[facility] CenterIn the event this information is protected by the Federal Confidentiality of Alcohol and Drug Abuse Patient Records regulations: The Federal rules restrict any use of the information to criminally investigate or prosecute any alcohol or drug abuse patient.[facility] CenterIn the event this information is protected by the Federal Confidentiality of Alcohol and Drug Abuse Patient Records regulations: The Federal rules restrict any use of the information to criminally investigate or prosecute any alcohol or drug abuse patient.[facility] CenterIn the event this information is protected by the Federal Confidentiality of Alcohol and Drug Abuse Patient Records regulations: The Federal rules restrict any use of the information to criminally investigate or prosecute any alcohol or drug abuse patient.[facility] CenterIn the event this information is protected by the Federal Confidentiality of Alcohol and Drug Abuse Patient Records regulations: The Federal rules restrict any use of the information to criminally investigate or prosecute any alcohol or drug abuse patient.[facility] CenterIn the event this information is protected by the Federal Confidentiality of Alcohol and Drug Abuse Patient Records regulations: The Federal rules restrict any use of the information to criminally investigate or prosecute any alcohol or drug abuse patient.[facility] Care Teams (unrecognized sec tion and content) Label Operator Relationship Specialty Start Date End Date Maciej Jaime, DO [address] [place] [id number] PCP - General Internal Medicine 05/01/20 Label Operator Relationship Specialty Start Date End Date Maciej Jaime DO [address] [place] [id number] PCP - General Internal Medicine 05/01/20 Label Operator Relationship Specialty Start Date End Date Maciej Jaime DO [address] [place] [id number] PCP - General Internal Medicine 05/01/20 Label Operator Relationship Specialty Start Date End Date Maciej Jaime DO [address] [place] [id number] PCP - General Internal Medicine 05/01/20 Label Operator Relationship Specialty Start Date End Date Ken Gomez, POWERHOUSE MECHANIC APPRENTICE.[employer] [address] [facility] [address] [place] [address] Referring Gynecology 06/10/20 Label Operator Relationship Specialty Start Date End Date Ken Gomez, POWERHOUSE MECHANIC APPRENTICE.[employer] [address] [facility] [address] [place] [address] Referring Gynecology 06/10/20 Label Operator Relationship Specialty Start Date End Date Ken Gomez, POWERHOUSE MECHANIC APPRENTICE.[employer] [address] [facility] [address] [place] [address] Referring Gynecology 06/10/20 Label Operator Relationship Specialty Start Date End Date Maciej Jaime, DO [address] [place] [address] PCP - General Internal Medicine 05/01/20 Label Operator Relationship Specialty Start Date End Date Ken Gomez, POWERHOUSE MECHANIC APPRENTICE.[employer] [address] [facility] [address] [place] [address] Referring Gynecology 06/10/20 Label Operator Relationship Specialty Start Date End Date Ken Gomez, POWERHOUSE MECHANIC APPRENTICE.[employer] [address] [facility] [address] [place] [address] Referring Gynecology 06/10/20 Label Operator Relationship Specialty Start Date End Date Ken Gomez, POWERHOUSE MECHANIC APPRENTICE.[employer] [address] [facility] [address] [place] [address] Referring Gynecology 06/10/20 Label Operator Relationship Specialty Start Date End Date Fifi Morales MD [address] [place] [address] PCP - General Family Medicine 06/09/22 Label Operator Relationship Specialty Start Date End Date Fifi Morales MD [address] [place] [address] PCP - General Family Medicine 06/09/22 Label Operator Relationship Specialty Start Date End Date Suzanna Mckeon, POWERHOUSE MECHANIC APPRENTICE - [employer] [address] [place] [address] PCP - General Nurse Practitioner Family 01/30/2206/08 Fifi Morales MD [address] [place] [address] PCP - General Family Medicine 06/09/22 Label Operator Relationship Specialty Start Date End Date Fifi Morales MD [address] [place] [address] PCP - General Family Medicine 06/09/22 Label Operator Relationship Specialty Start Date End Date Fifi Morales MD [address] [place] [address] PCP - General Family Medicine 06/09/22 Label Operator Relationship Specialty Start Date End Date Fifi Morales MD [address] [place] [address] PCP - General Family Medicine 06/09/22 Label Operator Relationship Specialty Start Date End Date Fifi Morales MD [address] [place] [address] PCP - General Family Medicine 06/09/22 Label Operator Relationship Specialty Start Date End Date Ken Gomez, POWERHOUSE MECHANIC APPRENTICE.[employer] [address] [address] Referring Gynecology 06/10/20 Label Operator Relationship Specialty Start Date End Date Fifi Morales MD [address] [place] [address] PCP - General Family Medicine 06/09/22 Label Operator Relationship Specialty Start Date End Date Fifi Morales MD [address] [place] [address] PCP - General Family Medicine 06/09/22 Label Operator Relationship Specialty Start Date End Date Ken Gomez, POWERHOUSE MECHANIC APPRENTICE.[employer] [address] [facility] [address] [place] [address] Referring Gynecology 06/10/20 Team Status: Active Member Role Status Dates DEFINED NOT Primary Care Provider Active Team Status: Inactive Member Role Status Dates DEFINED NOT Primary Care Provider Active Dr. Juan Grimm DO Emergency Provider Active Label Operator Relationship Specialty Start Date End Date Fifi Morales MD [address] [place] [address] PCP - General Family Medicine 06/09/22 Label Operator Relationship Specialty Start Date End Date Ken Gomez, POWERHOUSE MECHANIC APPRENTICE.[employer] [address] [address] Referring Gynecology 06/10/20 Team Status: Active Member Role Status Dates No Primary Care Physician Primary Care Provider Active Team Status: Inactive Member Role Status Dates Dr. Rafael Bear MD Attending Provider Active Team Status: Inactive Member Role Status Dates Dr. Juan Grimm DO Attending Provider, Emergency Pr ovider Active ANDREW GUERRERO Primary Care Provider Active Team Status: Inactive Member Role Status Dates Dr. Juan Grimm DO Emergency Provider Active No Primary Care Physician Primary Care Provider Active Label Operator Relationship Specialty Start Date End Date Fifi Morales MD [address] [place] [address] PCP - General Family Medicine 06/09/22 Label Operator Relationship Specialty Start Date End Date Fifi Morales MD [address] [place], [place] [address] PCP - General Family Medicine 01/07/23 Ken Gomez, MILADIS.RET[employer]ENG[employer]ING [address] [address] Referring Gynecology 06/10/20 Label Operator Relationship Specialty Start Date End Date Fifi Morales MD [address] [place], [place] [address] PCP - General Family Medicine 06/09/22 Label Operator Relationship Specialty Start Date End Date Fifi Morales MD [address] [place], [place] [address] PCP - General Family Medicine 06/09/22 Team Status: Inactive Member Role Status Dates No Primary Care Physician Primary Care Provider, Refer ring Provider Active Dr. Rafael Bear MD Attending Provider Active Team Status: Inactive Member Role Status Dates Dr. Juan Grimm DO Attending Provider, Emergency Pr ovider Active No Primary Care Physician Primary Care Provider Active Team Status: Inactive Member Role Status Dates No Primary Care Physician Primary Care Provider Active Dr. Rafael Bear MD Attending Provider Active Label Operator Relationship Specialty Start Date End Date Fifi Morales MD [address] [place], [place] [address] PCP - General Family Medicine 06/09/22 Label Operator Relationship Specialty Start Date End Date Fifi Morales MD [address] [place], [place] [address] PCP - General Family Medicine 06/09/22 Label Operator Relationship Specialty Start Date End Date Fifi Morales MD [address] [place], [place] [id number] PCP - General Family Medicine 06/09/22 Team Status: Inactive Member Role Status Dates No Primary Care Physician Primary Care Provider Active Dr. Shelbi Cam MD Emergency Provider Active Team Status: Active Member Role Status Dates Dr. Keagna Shrestha MD Primary Care Provider Active Team Status: Inactive Member Role Status Dates No Primary Care Physician Primary Care Provider, Refer ring Provider Active Dr. Keagan Shrestha MD Attending Provider Active Team Status: Inactive Member Role Status Dates Dr. Keagan Shrestha MD Primary Care Provider, Referri ng Provider Active Dr. Rafael Bear MD Attending Provider Active Team Status: Inactive Member Role Status Dates Dr. Keagan Shrestha MD Primary Care Pro vider, Attending Provider, Referring Provider Active Team Status: Active Member Role Status Dates Dr. Rafael Bear MD Attending Provider, Other Provi eriberto Active Dr. Keagan Shrestha MD Primary Care Provider, Referri ng Provider Active Team Status: Inactive Member Role Status Dates Dr. Rafael Bear MD Attending Provider Active Dr. Keagan Shrestha MD Primary Care Provider, Referri ng Provider Active Team Status: Inactive Member Role Status Dates No Primary Care Physician Primary Care Provider Active Dr. Shelbi Cma MD Attending Provider, Emergency Provider Active Team Status: Active Member Role Status Dates Dr. Keagan Shrestha MD Primary Care Pro vider, Attending Provider, Referring Provider Active Team Status: Active Member Role Status Dates Dr. Keagan Shrestha MD Primary Care Provider Active Dr. Earl Leggett MD Attending Provider Active Dr. Yayo Martell MD Referring Provider Active Team Status: Inactive Member Role Status Dates Dr. Keagan Shrestha MD Primary Care Provider Active Dr. Paramjit Reeves DO Emergency Provider Active Label Operator Relationship Specialty Start Date End Date Fifi Morales MD [address] [place] [address] PCP - General Family Medicine 01/07/23 Ken Gomez, POWERHOUSE MECHANIC APPRENTICE.[employer]ER [employer]ING [address] [facility] [address] [place] [address] Referring Gynecology 06/10/20 Label Operator Relationship Specialty Start Date End Date Fifi Morales MD [address] [place] [address] PCP - General Family Medicine 01/07/23 Ken Gomez, POWERHOUSE MECHANIC APPRENTICE.RETOUCHER PHOTOENGRAVING [address] [address] Referring Gynecology 06/10/20 Label Operator Relationship Specialty Start Date End Date Keagan Shrestha MD [address] [employer] [place] [address] PCP - General Internal Medicine 09/19/23 Ken Gomez, POWERHOUSE MECHANIC APPRENTICE.RETOUCHER PHOTOENGRA[employer] [address] [address] Referring Gynecology 06/10/20 Label Operator Relationship Specialty Start Date End Date Fifi Morales MD [address] [place] [address] PCP - General Family Medicine 06/09/22 Label Operator Relationship Specialty Start Date End Date Fifi Morales MD [address] [place] [address] PCP - General Family Medicine 06/09/22 Label Operator Relationship Specialty Start Date End Date Keagan Shrestha MD [address] [place] [address] PCP - General Internal Medicine 09/19/23 Ken Gomez, POWERHOUSE MECHANIC APPRENTICE.RETOUCHER PHOTOENGRAVING [address] [facility] [address] [place] [address] Referring Gynecology 06/10/20 Label Operator Relationship Specialty Start Date End Date Keagan Shrestha MD [address] [facility] [place] [address] PCP - General Internal Medicine 09/19/23 Ken Gomez, POWERHOUSE MECHANIC APPRENTICE.RETOUCHER PHOTOENGRAVING [address] [address] Referring Gynecology 06/10/20 Label Operator Relationship Specialty Start Date End Date Keagan Shrestha MD [address] [place] [address] PCP - General Internal Medicine 09/19/23 Ken Gomez, POWERHOUSE MECHANIC APPRENTICE.RETOUCHER PHOTOENGRAVING [address] [address] Referring Gynecology 06/10/20 Label Operator Relationship Specialty Start Date End Date Fifi Morales MD [facility] [place] [address] PCP - General Family Medicine 06/09/22 Label Operator Relationship Specialty Start Date End Date Suzanna Mckeon, POWERHOUSE MECHANIC APPRENTICE - RETOUCHER PHOTOENGRAVING [address] [place] [address] PCP - General Nurse Practitioner [facility] 01/30/22 Label Operator Relationship Specialty Start Date End Date Suzanna Mckeon, POWERHOUSE MECHANIC APPRENTICE - RETOUCHER PHOTOENGRAVING [address] [place] [address] PCP - General Nurse Practitioner Family 01/30/22 Label Operator Relationship Specialty Start Date End Date Suzanna Mckeon, POWERHOUSE MECHANIC APPRENTICE - RETOUCHER PHOTOENGRAVING [address] [place] [address] PCP - General Nurse Practitioner [facility] 01/30/22 Label Operator Relationship Specialty Start Date End Date Keagan Shrestha MD [address] [place], [place] [id number] PCP - General Internal Medicine 03/06/24 Label Operator Relationship Specialty Start Date End Date No Primary Care, [place] [address] PCP - General Pediatrics 10/18/23 Label Operator Relationship Specialty Start Date End Date No Primary Care[place] [address] PCP - General Pediatrics 10/18/23 Label Operator Relationship Specialty Start Date End Date Keagan Shrestha MD [address] [place] [address] PCP - General Internal Medicine 03/06/24 Label Operator Relationship Specialty Start Date End Date Fifi Morales MD [address] [place] [address] PCP - General Family Medicine 06/09/22 03/05/24 Keagan Shrestha MD [address] [place], [place] [address] PCP - General Internal Medicine 03/06/24 Label Operator Relationship Specialty Start Date End Date Keagan Shrestha MD [address] [place] [id number] PCP - General Internal Medicine 03/06/24 Label Operator Relationship Specialty Start Date End Date Fifi Morales MD [address] [place] [address] PCP - General Family Medicine 06/09/22 03/05/24 Keagan Shrestha MD [address] [place], [place] [address] PCP - General Internal Medicine 03/06/24 Label Operator Relationship Specialty Start Date End Date Keagan Shrestha MD [address] [place], [place] [id number] PCP - General Internal Medicine 03/06/24 Label Operator Relationship Specialty Start Date End Date Keagan Shrestha MD [address] [place], [place] [id number] PCP - General Internal Medicine 03/06/24 Team Status: Inactive Member Role Status Dates Dr. Keagan Shrestha MD Primary Care Provider Active Start: January 29, 2024 End: January 29, 2024 Dr. Best Gudino DO Attending Provider Active Start : January 29, 2024 End: January 29, 2024 Dr. Best Gudino , Emergency Provider Active Start : January 29, 2024 End: January 29, 2024 Team Status: Inactive Member Role Status Dates Dr. Keagan Shrestha MD Primary Care Provider Active Start: February 02, 2024 End: February 02, 2024 Dr. Keagan Shrestha MD Referring Provider Active Start: February 02, 2024 End: February 02, 2024 Dr. Shelbi Dewitt DO Attending Provider Activ e Start: February 02, 2024 End: February 02, 2024 Team Status: Inactive Member Role Status Dates Dr. Keagan Shrestha MD Primary Care Provider Active Start: February 02, 2024 End: February 02, 2024 Dr. Shelbi Dewitt DO Attending Provider Activ e Start: February 02, 2024 End: February 02, 2024 Dr. Shelbi Dewitt DO Referring Provider Activ e Start: February 02, 2024 End: February 02, 2024 Team Status: Inactive Member Role Status Dates Dr. Keagan Shrestha MD Primary Care Provider Active Start: February 16, 2024 End: February 16, 2024 Dr. Keagan Shrestha MD Referring Provider Active Start: February 16, 2024 End: February 16, 2024 Kayleen Helton DISPLAY MAKER, DISPLAY MAKER-C Attending Provider Active Start: February 16, 2024 End: February 16, 2024 Team Status: Inactive Member Role Status Dates Dr. Keagan Shrestha MD Primary Care Provider Active Start: February 22, 2024 End: February 22, 2024 Dr. Best Gudino DO Attending Provider Active Start : February 22, 2024 End: February 22, 2024 Dr. Best Gudino DO Emergency Provider Active Start : February 22, 2024 End: February 22, 2024 Team Status: Inactive Member Role Status Dates Dr. Keagan Shrestha MD Primary Care Provider Active Start: February 23, 2024 End: February 23, 2024 Dr. Keagan Shrestha MD Attending Provider Active Start: February 23, 2024 End: February 23, 2024 Dr. Keagan Shrestha MD Referring Provider Active Start: February 23, 2024 End: February 23, 2024 Team Status: Inactive Member Role Status Dates Dr. Keagan Shrestha MD Primary Care Provider Active Start: February 24, 2024 End: February 24, 2024 Dr. Anirudh De Los Santos MD Attending Provider Active Start: February 24, 2024 End: February 24, 2024 Dr. Anirudh De Los Santos MD Referring Provider Active Start: February 24, 2024 End: February 24, 2024 Team Status: Active Member Role Status Dates Dr. Keagan Shrestha MD Primary Care Provider Active Start: February 27, 2024 Dr. Anirudh De Los Santos MD Attending Provider Active Start: February 27, 2024 Dr. Anirudh De Los Santos MD Referring Provider Active Start: February 27, 2024 Dr. Anirudh De Los Santos MD Other Provider Active Start: February 27, 2024 Team Status: Inactive Member Role Status Dates Dr. Keagan Shrestha MD Primary Care Provider Active Start: February 28, 2024 End: February 28, 2024 ARSENIO RANGEL Attending Provider Active Start: February 28, 2024 End: February 28, 2024 ARSENIO RANGEL Referring Provider Active Start: February 28, 2024 End: February 28, 2024 Team Status: Inactive Member Role Status Dates Dr. Keagan Shrestha MD Primary Care Provider Active Start: February 28, 2024 End: February 28, 2024 Dr. Keagan Shrestha MD Referring Provider Active Start: February 28, 2024 End: February 28, 2024 Amber Ram CNM Attending Provider Active S tart: February 28, 2024 End: February 28, 2024 Team Status: Inactive Member Role Status Dates Dr. Keagan Shrestha MD Primary Care Provider Active Start: March 02, 2024 End: March 02, 2024 Dr. Best Gudino DO Attending Provider Active Start : March 02, 2024 End: March 02, 2024 Dr. Best Gudino DO Referring Provider Active Start : March 02, 2024 End: March 02, 2024 Dr. Best Gudino DO Emergency Provider Active Start : March 02, 2024 End: March 02, 2024 Team Status: Inactive Member Role Status Dates Dr. Keagan Shrestha MD Primary Care Provider Active Start: March 03, 2024 End: March 03, 2024 Dr. Anirudh De Los Santos MD Attending Provider Active Start: March 03, 2024 End: March 03, 2024 Dr. Anirudh De Los Santos MD Referring Provider Active Start: March 03, 2024 End: March 03, 2024 Team Status: Inactive Member Role Status Dates Dr. Keagan Shrestha MD Primary Care Provider Active Start: March 09, 2024 End: March 09, 2024 Ana Lu CNM Attending Provider Active Start: March 09, 2024 End: March 09, 2024 Ana Lu CNM Referring Provider Active Start: March 09, 2024 End: March 09, 2024 Team Status: Inactive Member Role Status Dates Dr. Keagan Shrestha MD Primary Care Provider Active Start: March 10, 2024 End: March 10, 2024 Dr. Anirudh De Los Santos MD Attending Provider Active Start: March 10, 2024 End: March 10, 2024 Team Status: Inactive Member Role Status Dates Dr. Keagan Shrestha MD Primary Care Provider Active Start: March 11, 2024 End: March 11, 2024 Amber Ram CNM Attending Provider Active S tart: March 11, 2024 End: March 11, 2024 Team Status: Active Member Role Status Dates Dr. Keagan Shrestha MD Primary Care Provider Active Start: March 11, 2024 Amber Ram CNM Attending Provider Active S tart: March 11, 2024 Amber Ram CNM Other Provider Active Start : March 11, 2024 Team Status: Inactive Member Role Status Dates Dr. Keagan Shrestha MD Primary Care Provider Active Start: March 15, 2024 End: March 15, 2024 Dr. Keagan Shrestha MD Referring Provider Active Start: March 15, 2024 End: March 15, 2024 Dr. Anirudh De Los Santos MD Attending Provider Active Start: March 15, 2024 End: March 15, 2024 Team Status: Inactive Member Role Status Dates Dr. Keagan Shrestha MD Primary Care Provider Active Start: March 16, 2024 End: March 16, 2024 Dr. Shelbi Dewitt DO Attending Provider Activ e Start: March 16, 2024 End: March 16, 2024 Dr. Shelbi Dewitt DO Referring Provider Activ e Start: March 16, 2024 End: March 16, 2024 Team Status: Active Member Role Status Dates Dr. Keagan Shrestha MD Primary Care Provider Active Start: March 16, 2024 Dr. Shelbi Dewitt DO Attending Provider Activ e Start: March 16, 2024 Dr. Shelbi Dewitt DO Referring Provider Activ e Start: March 16, 2024 Dr. Shelbi Dewitt DO Other Provider Active Start: March 16, 2024 Team Status: Inactive Member Role Status Dates Dr. Keagan Shrestha MD Primary Care Provider Active Start: March 16, 2024 End: March 17, 2024 Dr. Shelbi Dewitt DO Attending Provider Activ e Start: March 16, 2024 End: March 17, 2024 Dr. Shelbi Dewtit DO Referring Provider Activ e Start: March 16, 2024 End: March 17, 2024 Team Status: Active Member Role Status Dates Dr. Keagan Shrestha MD Primary Care Provider Active Start: March 17, 2024 Ana Lu CNM Attending Provider Active Start: March 17, 2024 Ana Lu CNM Referring Provider Active Start: March 17, 2024 Ana Lu CNM Other Provider Active Star t: March 17, 2024 Team Status: Inactive Member Role Status Dates Dr. Keagan Shrestha MD Primary Care Provider Active Start: March 17, 2024 End: March 17, 2024 Dr. Anirudh De Los Santos MD Attending Provider Active Start: March 17, 2024 End: March 17, 2024 Dr. Anirudh De Los Santos MD Referring Provider Active Start: March 17, 2024 End: March 17, 2024 Team Status: Inactive Member Role Status Dates Dr. Keagan Shrestha MD Primary Care Provider Active Start: March 19, 2024 End: March 19, 2024 Ana Lu CNM Attending Provider Active Start: March 19, 2024 End: March 19, 2024 PILAR ChristieM Referring Provider Active Start: March 19, 2024 End: March 19, 2024 Team Status: Active Member Role Status Dates Dr. Keagan Shrestha MD Primary Care Provider Active Start: March 24, 2024 Ana Lu CNM Attending Provider Active Start: March 24, 2024 Ana Lu CNM Referring Provider Active Start: March 24, 2024 Ana Lu CNM Other Provider Active Star t: March 24, 2024 Team Status: Inactive Member Role Status Dates Dr. Keagan Shrestha MD Primary Care Provider Active Start: March 24, 2024 End: March 24, 2024 Dr. Anirudh De Los Santos MD Attending Provider Active Start: March 24, 2024 End: March 24, 2024 Dr. Anirudh De Los Santos MD Referring Provider Active Start: March 24, 2024 End: March 24, 2024 Team Status: Inactive Member Role Status Dates Dr. Keagan Shrestha MD Primary Care Provider Active Start: March 27, 2024 End: March 31, 2024 Amber Ram CNM Referring Provider Active S tart: March 27, 2024 End: March 31, 2024 Dr. Shelbi Dewitt DO Admit Provider Active Start: March 27, 2024 End: March 31, 2024 Dr. Shelbi Dewitt DO Attending Provider Activ e Start: March 27, 2024 End: March 31, 2024 Team Status: Active Member Role Status Dates Dr. Keagan Shrestha MD Primary Care Provider Active Start: March 27, 2024 Amber Ram CNM Attending Provider Active S tart: March 27, 2024 Amber Ram CNM Referring Provider Active S tart: March 27, 2024 Dr. Shelbi Dewitt DO Admit Provider Active Start: March 27, 2024 Dr. Shelbi Dewitt DO Other Provider Active Start: March 27, 2024 Team Status: Active Member Role Status Dates Dr. Keagan Shrestha MD Primary Care Provider Active Start: March 28, 2024 Amber Ram CNM Referring Provider Active S tart: March 28, 2024 Dr. Shelbi Dewitt DO Admit Provider Active Start: March 28, 2024 Dr. Shelbi Dewitt DO Attending Provider Activ e Start: March 28, 2024 Dr. Shelbi Dewitt DO Other Provider Active Start: March 28, 2024 Team Status: Active Member Role Status Dates Dr. Keagan Shrestha MD Primary Care Provider Active Start: March 29, 2024 Amber Ram CNM Attending Provider Active S tart: March 29, 2024 Amber Ram CNM Referring Provider Active S tart: March 29, 2024 Dr. Shelbi Dewitt DO Admit Provider Active Start: March 29, 2024 Dr. Shelbi Dewitt DO Other Provider Active Start: March 29, 2024 Team Status: Active Member Role Status Dates Dr. Keagan Shrestha MD Primary Care Provider Active Start: March 30, 2024 Amber Ram CNM Referring Provider Active S tart: March 30, 2024 Dr. Shelbi Dewitt DO Admit Provider Active Start: March 30, 2024 Dr. Shelbi Dewitt DO Attending Provider Activ e Start: March 30, 2024 Dr. Shelbi Dewitt DO Other Provider Active Start: March 30, 2024 Team Status: Active Member Role Status Dates Dr. Keagan Shrestha MD Primary Care Provider Active Start: March 31, 2024 Amber Ram CNM Referring Provider Active S tart: March 31, 2024 Dr. Shelbi Dewitt DO Admit Provider Active Start: March 31, 2024 Dr. Shelbi Dewitt DO Other Provider Active Start: March 31, 2024 Ana Lu CNM Attending Provider Active Start: March 31, 2024 Team Status: Inactive Member Role Status Dates Dr. Keagan Shrestha MD Primary Care Provider Active Start: April 26, 2024 End: April 26, 2024 Dr. Keagan Shrestha MD Referring Provider Active Start: April 26, 2024 End: April 26, 2024 Tiffanie FISCHER PA-C Attending Provider Active Start: April 26, 2024 End: April 26, 2024 Team Status: Inactive Member Role Status Dates Dr. Keagan Shrestha MD Primary Care Provider Active Start: May 03, 2024 End: May 03, 2024 Dr. Keagan Shrestha MD Referring Provider Active Start: May 03, 2024 End: May 03, 2024 Kayleen Helton DISPLAY MAKER, DISPLAY MAKER-C Attending Provider Active Start: May 03, 2024 End: May 03, 2024 Team Status: Inactive Member Role Status Dates Dr. Keagan Shrestha MD Primary Care Provider Active Start: May 03, 2024 End: May 03, 2024 Kayleen Helton DISPLAY MAKER, DISPLAY MAKER-C Attending Provider Active Start: May 03, 2024 End: May 03, 2024 Kayleen Helton DISPLAY MAKER, DISPLAY MAKER-C Referring Provider Active Start: May 03, 2024 End: May 03, 2024 Label Operator Relationship Specialty Start Date End Date Keagan Shrestha MD [address] [place] [address] PCP - General Internal Medicine 03/06/24 Label Operator Relationship Specialty Start Date End Date Keagan Shrestha MD [address] [place], [place] [id number] PCP - General Internal Medicine 03/06/24 Team Status: Inactive Member Role Status Dates Dr. Keagan Shrestha MD Primary Care Provider Active Start: May 30, 2024 End: May 30, 2024 Dr. Keagan Shrestha MD Referring Provider Active Start: May 30, 2024 End: May 30, 2024 Kayleen Helton DISPLAY MAKER, DISPLAY MAKER-C Attending Provider Active Start: May 30, 2024 End: May 30, 2024 Team Status: Inactive Member Role Status Dates Dr. Keagan Shrestha MD Primary Care Provider Active Start: July 11, 2024 End: July 11, 2024 Dr. Keagan Shrestha MD Referring Provider Active Start: July 11, 2024 End: July 11, 2024 Kayleen Helton DISPLAY MAKER, DISPLAY MAKER-C Attending Provider Active Start: July 11, 2024 End: July 11, 2024 Team Status: Inactive Member Role Status Dates Dr. Keagan Shrestha MD Primary Care Provider Active Start: July 26, 2024 End: July 26, 2024 Dr. Keagan Shrestha MD Referring Provider Active Start: July 26, 2024 End: July 26, 2024 González FISCHER PA Attending Provider Active St art: July 26, 2024 End: July 26, 2024 Team Status: Active Member Role Status Dates Dr. Keagan Shrestha MD Primary Care Provider Active Start: July 26, 2024 González FISCHER PA Attending Provider Active St art: July 26, 2024 González FISCHER PA Referring Provider Active St art: July 26, 2024 Team Status: Inactive Member Role Status Dates Dr. Keagan Shrestha MD Primary Care Provider Active Start: July 26, 2024 End: July 26, 2024 González FISCHER PA Attending Provider Active St art: July 26, 2024 End: July 26, 2024 González FISCHER PA Referring Provider Active St art: July 26, 2024 End: July 26, 2024 Label Operator Relationship Specialty Start Date End Date Keagan Shrestha MD [address] [place], [place] [phone] PCP - General Internal Medicine 03/06/24 Label Operator Relationship Specialty Start Date End Date Keagan Shrestha MD [address] [place] [id number] PCP - General Internal Medicine 03/06/24 INFORMATION SOURCE (unrecogn ized section and content) DATE CREATED AUTHOR 01/18/2021 [employer] DATE CREATED AUTHOR AUTHOR'S ORGANIZ ATION 06/18/2021 [facility] DATE CREATED AUTHOR AUTHOR'S ORGANIZ ATION 11/15/2021 [facility] DATE CREATED AUTHOR AUTHOR'S ORGANIZ ATION 12/29/2021 [facility] DATE CREATED AUTHOR AUTHOR'S ORGANIZ ATION 10/19/2022 [facility] DATE CREATED AUTHOR AUTHOR'S ORGANIZ ATION 01/14/2024 [facility] DATE CREATED AUTHOR AUTHOR'S ORGANIZ ATION 03/28/2024 [facility] DATE CREATED AUTHOR AUTHOR'S ORGANIZ ATION 11/16/2024 [facility] DATE CREATED AUTHOR AUTHOR'S ORGANIZ ATION 11/22/2024 [facility] Scheduled Active and Recently Administ ered Medications (unrecognized section and content) Medication Order 11/03/2021 11/04/2021 11/05/2021 doxycycline monohydrate (MONODOX) capsule 100 mg (COMPLETED) 100 mg, Oral, ONCE, 1 dose, On Wed11/05/21 at 0345, Antimicrobial Indications: Skin and Soft Tissue Infection, This medication can interact with tube feedings (TF)- obtain MD order to manage. Recommend holding TF for 1 h before and 2 h after dose. Take 1 h before or 2 h after dairy, calcium, iron, magnesium, aluminum or zinc. 0417 (Given - Provid er: Janet Hanna RN) lidocaine PF 1 % injection 10 mL (COMPLETED) 10 mL, IntraDERmal, ONCE, 1 dose, On Wed11/05/21 at 0315 0351 (Given by Other - Provider: Janet Hanna RN) Scheduled Medication Order 08/27/2022 08/28/2022 08/29/2022 acetaminophen (Tylenol) tablet 1,000 mg 1,000 mg, Oral, Once, On 08/29/22 at 2005, For 1 dose, Maximum dose of acetaminophen [...] (Given - Provid er: Amber Goldberg RN) Scheduled Medication Order 03/04/2024 03/05/2024 03/06/2024 cyclobenzaprine (Flexeril) tablet 5 mg (COMPLETED) 5 mg, Oral, Once, On Wed03/06/24 at 1930, For 1 dose 1926 (Given - Provid er: Zonia Gonzalez RN) Lidocaine 4 % patch 1 patch 1 patch, TransDERmal, Administer over 12 Hours, Daily, First dose on Wed03/06/24 at 1915, Apply patch to painful area. Patch may remain in place for up to 12 hours in any 24 hour period. 1926 (Medication Alec lied - Provider: Zonia Gonzalez RN)2122 (Due: Medication Removed - Provider: Automatic Discharge Provider - Comment: Time automatically adjusted from order being discontinued) Scheduled Medication Order 07/14/2024 07/15/2024 07/16/2024 cephalexin (Keflex) capsule 500 mg (COMPLETED) 500 mg, Oral, Once, On 07/16/24 at 1320, For 1 dose, Suspected Indication (Select all that apply): Urinary Tract Infection 1330 (Given - Provid er: Wilma Delacruz RN) Goals (unrecognized section and content) Goals may be documented in a n alternate sectionGoals may be documented in an alternate sectionGoals may be documented in an alternate sectionGoals may be documented in an alternate sectionGoals may be documented in an alternate section FOR RECORDS PERTAINING TO PATIENTS WHO ARE [...] BE BASED ON THE PRIMARY CLINICAL RECORDS. [employer] provides no warranty or guarantee of the accuracy or completeness of information in this document.
== END | disposition home or self-care (01) ==
LOC: SL 06:55
PROVIDERS: PCP Internal Medicine; Referring Provider Nurse Practitioner Acute Care; Visit Provider Nurse Practitioner Acute Care
DX: Z00.00 Encounter for general adult medical examination without abnormal findings (principal)

== ENCOUNTER → 2024-12-05 | Outpatient (CLI) | payer MEDICAID, SELFPAY | END | disposition home or self-care (01) | PROVIDERS: PCP Internal Medicine; Referring Provider Obstetrics & Gynecology; Visit Provider Obstetrics & Gynecology | DX: Z12.4 Encounter for screening for malignant neoplasm of cervix (principal) | CPT/HCPCS: 88175; G0145 ==